=== PATIENT | male | born 1945 | race Caucasian/White ===

== ENCOUNTER → 2018-05-24 11:25 | Outpatient (CLI) | payer MEDICARE, SELFPAY ==
[2018-05-24 12:46] LABS: PSA,Total - Annual Screen 0.57 ng/mL (0.00-4.00)
== END ==
PROVIDERS: Family Provider Family Medicine; PCP Family Medicine; Referring Provider Urology; Visit Provider Urology
DX: Z12.5 Encounter for screening for malignant neoplasm of prostate (principal)
CPT/HCPCS: 36415; 84153; G0103

== ENCOUNTER → 2019-06-06 15:33 | Outpatient (CLI) | payer MEDICARE, SELFPAY ==
[2019-06-06 17:07] LABS: PSA,Total - Annual Screen 0.89 ng/mL (0.00-4.00)
== END ==
PROVIDERS: Family Provider Family Medicine; PCP Family Medicine; Referring Provider Urology; Visit Provider Urology
DX: Z12.5 Encounter for screening for malignant neoplasm of prostate (principal)
CPT/HCPCS: 36415; 84153; G0103

== ENCOUNTER → 2020-06-11 15:17 | Outpatient (CLI) | payer MEDICARE, SELFPAY ==
[2020-06-11 16:28] LABS: PSA,Total- Diagnostic 1.08 ng/mL (0.0-4.0)
== END ==
PROVIDERS: PCP Family Medicine; Visit Provider Urology
DX: N40.1 Benign prostatic hyperplasia with lower urinary tract symptoms (principal)
CPT/HCPCS: 36415; 84153

== ENCOUNTER 2021-10-02 14:22 | Outpatient (CLI) | payer OTHER, MEDICARE, SELFPAY ==
[2021-10-02 16:11] LABS: PSA,Total- Diagnostic 0.99 ng/mL (0.0-4.0)
== END 2021-10-02 23:59 | disposition home or self-care (01) ==
LOC: LAB 14:29
PROVIDERS: PCP Family Medicine; Visit Provider Urology
DX: N40.1 Benign prostatic hyperplasia with lower urinary tract symptoms (principal)
CPT/HCPCS: 36415; 84153

== ENCOUNTER → 2023-05-17 | Outpatient (CLI) | payer OTHER, SELFPAY ==
[2023-05-17 15:02] LABS: PSA,Total - Annual Screen 0.37 ng/mL (0.00-4.00)
== END | disposition home or self-care (01) ==
LOC: LAB 13:51
PROVIDERS: PCP Family Medicine; Referring Provider Urology; Visit Provider Urology
DX: Z12.5 Encounter for screening for malignant neoplasm of prostate (principal)
CPT/HCPCS: 36415; 84153; G0103

== ENCOUNTER → 2023-09-08 | Outpatient (CLI) | payer OTHER, SELFPAY ==
--- NOTE | 2023-09-08 14:47 | ECHOD_ITS ---
Reason For Study: ISCHEMIC HEART DISEASE Procedure This was a 2D Doppler, Color Flow transthoracic echocardiogram. Exam performed in department. Left Ventricle Normal LV size. Left ventricular systolic function is normal. The estimated ejection fraction is 60 %. Stage 1 diastolic dysfunction. No regional wall motion abnormalities noted. Right Ventricle Normal RV size. Normal systolic function. Atria Normal left atrium. Normal right atrium. Mitral Valve Normal mitral valve. Tricuspid Valve Normal tricuspid valve. Mild tricuspid valve insufficiency. Pulmonary artery systolic pressure is 35 mmHg. Aortic Valve Trisinus/trileaflet aortic valve. Pulmonic Valve Normal pulmonic valve. Great Vessels Normal aortic root. The pulmonary artery is normal size. Normal inferior vena cava. Pericardium/Pleural No pericardial effusion. MMode/2D Measurements & Calculations LVIDd: 5.0 cm IVSd: 0.85 cm Ao root diam: 3.6 cm LVIDs: 3.7 cm LVPWd: 0.90 cm RVDd: 3.3 cm FS: 25.7 % LAV(MOD-bp): 57.6 ml LVAd ap4: 30.4 cm2 LVAd ap2: 23.9 cm2 LAV(MOD-bp) Indexed: 28.6 ml/m2 LVLd ap4: 8.0 cm LVLd ap2: 7.9 cm LAV(MOD-sp2): 56.9 ml EDV(MOD-sp4): 95.5 ml EDV(MOD-sp2): 59.7 ml LAV(MOD-sp4): 54.8 ml EDV(sp4-el): 98.2 ml EDV(sp2-el): 61.8 ml LVAs ap4: 18.7 cm2 LVAs ap2: 14.5 cm2 LVLs ap4: 6.7 cm LVLs ap2: 6.5 cm ESV(MOD-sp4): 44.7 ml ESV(MOD-sp2): 28.0 ml ESV(sp4-el): 44.4 ml ESV(sp2-el): 27.6 ml EF(MOD-sp4): 53.2 % EF(MOD-sp2): 53.1 % EF(sp4-el): 54.8 % SV(MOD-sp4): 50.8 ml SV(MOD-sp2): 31.7 ml SV(sp4-el): 53.8 ml LA dimension(2D): 3.5 cm LA A4 area: 18.0 cm2 RA A4 area: 13.0 cm2 TAPSE: 2.4 cm Time Measurements MV dec time: 0.20 sec Doppler Measurements & Calculations MV E max bradly: 66.9 cm/sec Lat Peak E' Bradly: 8.2 cm/sec Med Peak E' Bradly: 5.1 cm/sec MV A max bradly: 86.3 cm/sec E/E' lat: 8.1 E/E' med: 13.1 MV E/A: 0.78 MV V2 max: 88.0 cm/sec MV P1/2t max bradly: 66.3 cm/sec Ao V2 max: 157.2 cm/sec MV max P.1 mmHg MV P1/2t: 66.3 msec Ao max P.9 mmHg MV V2 mean: 56.7 cm/sec MV dec slope: 293.1 cm/sec2 Ao V2 mean: 111.5 cm/sec MV mean P.4 mmHg Ao mean P.7 mmHg MV V2 VTI: 22.3 cm MVA(P1/2t): 3.3 cm2 Ao V2 VTI: 33.1 cm AV (velocity ratio): 0.64 LV V1 max: 101.2 cm/sec PA V2 max: 86.6 cm/sec TR max bradly: 275.4 cm/sec LV V1 max P.1 mmHg PA V2 mean: 57.1 cm/sec TR max P.3 mmHg LV V1 mean P.3 mmHg LV V1 mean: 70.3 cm/sec LV V1 VTI: 21.0 cm ECHO/Echo Complete Interpretation Summary Normal LV size. Left ventricular systolic function is normal. The estimated ejection fraction is 60 %. Stage 1 diastolic dysfunction. Mild tricuspid valve insufficiency. Pulmonary artery systolic pressure is 35 mmHg. Ordering Physician: Misha Benitez Referring Physician: Zahra Adams Performed By: Yu Albarran RDCS, RVT
== END | disposition home or self-care (01) ==
LOC: CVS 14:46
PROVIDERS: PCP Family Medicine; Referring Provider Chiropractor; Visit Provider Chiropractor
DX: I25.9 Chronic ischemic heart disease, unspecified (principal); I07.9 Rheumatic tricuspid valve disease, unspecified
CPT/HCPCS: 93306

== ENCOUNTER → 2024-06-05 | Outpatient (CLI) | payer MEDICARE, SELFPAY ==
[2024-06-05 17:05] LABS: PSA,Total - Annual Screen 0.43 ng/mL (0.00-4.00)
== END | disposition home or self-care (01) ==
LOC: LAB 14:56
PROVIDERS: PCP Family Medicine; Referring Provider Urology; Visit Provider Urology
DX: Z12.5 Encounter for screening for malignant neoplasm of prostate (principal)
CPT/HCPCS: 36415; 84153; G0103

== ENCOUNTER 2025-06-13 11:09 | Observation (INO) | payer MEDICARE, SELFPAY ==
--- NOTE | 2025-06-12 16:53 | PAT.ANESEVAL ---
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 When Was Last Pacemaker Check QUESTION #4 FULL TEXT: You/Your Family Experience fever (hyperthermia) with Anesthesia Last Oral Intake Last Oral intake: Last Oral Intake NPO since Meds taken in AM with sips of water? 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 Female No 06/12/25 13:58 HX of Motion Sickness No 06/12/25 13:58 HX of N/V After Surgery No 06/12/25 13:58 Non-Smoker Yes 06/12/25 13:58 Duration of Surgery greater Yes 06/12/25 13:58 than 60 minutes Number of Risk Factors 2 06/12/25 13:58 PONV Score Moderate Risk 06/12/25 13:58 Height & Weight Height & Weight: Anesthesia: Height & Weight Height 5 ft 7 in 01/15/25 14:43 Respiratory Assessment Respiratory Assessment - territory business manager: Respiratory Tract Infection Hx - territory business manager Hx Respiratory Tract Infection No 06/12/25 13:58 STOP Sleep Apnea STOP Sleep Apnea - territory business manager: STOP Sleep Apnea - territory business manager Hx Hypertension Yes: CONTROLLED WITH MED 06/12/25 13:58 Hx Sleep Apnea Yes 06/12/25 13:58 CPAP Yes: NONCOMPLIANT 06/12/25 13:58 BIPAP No 06/12/25 13:58 Do you snore loudly (louder than talking or can be heard Do you often feel tired/ fatigued/ sleepy during daytime? Has anyone observed you stop breathing during sleep? STOP Results Positive 06/12/25 13:58 QUESTION #5 FULL TEXT : Do you snore loudly (louder than talking or can be heard through closed doors)? 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 confused, unrespo /Reproduction History /Reproductive History - territory business manager: /Reproductive Hx- territory business manager Hx Now No 06/12/25 13:58 Gestational Age (in weeks): EDC: Hx Hx Para Hx Section SAB No 06/12/25 13:58 Active Medications Active Medications: Current Medications Generic Name Dose Route Start Last Admin Trade Name Freq PRN Reason Stop Dose Admin Cefazolin Sodium 2 gm/ Sodium 110 mls @ 200 mls/hr 06/13/25 09:45 Chloride IV 06/13/25 10:17 INTRAOP ONE [facility] Medical History (Updated 06/12/25 @ 14:25 by Lizzette Addison) Wears contact lenses Wears glasses Wears partial dentures Wears dentures Thyroid disease Diabetes Arthritis Prostate disease Anemia High cholesterol Restless legs Back pain Non-smoker CPAP (continuous positive airway pressure) dependence History of pain when walking History of echocardiogram History of stress test Cardiology follow-up encounter Hypertension Home Medications ?Medication ?Instructions ?Recorded ?Last Taken ?Type aspirin 81 mg chewable tablet 81 mg PO DAILY@0800 HEART HEALTH 11/08/15 06/09/25 History cyanocobalamin (vitamin B-12) 500 1,000 mcg PO DAILY@0800 SUPPLEMENT 11/08/15 12/02/15 08:00 History mcg tablet 1000 mcg glipizide 5 mg tablet 5 mg PO BID DIABETES 11/08/15 12/02/15 08:00 History 5 mg tamsulosin 0.4 mg capsule 0.4 mg PO BID PROSTATE 11/08/15 12/02/15 21:00 History 0.8 mg atorvastatin 80 mg tablet 80 mg PO QDAY CHOLESTEROL 01/15/25 Unknown History finasteride 5 mg tablet 5 mg PO BID PROSTATE 01/15/25 Unknown History isosorbide mononitrate 30 mg 30 mg PO QDAY HEART 01/15/25 Unknown History tablet,extended release 24 hr levothyroxine 175 mcg tablet 875 mcg PO MO THYROID 01/15/25 Unknown History lisinopril 5 mg tablet 5 mg PO QDAY BP 01/15/25 Unknown History magnesium oxide 400 mg PO QDAY SUPPLEMENT 01/15/25 Unknown History metformin 500 mg tablet,extended 500 mg PO BID DIABETES 01/15/25 Unknown History release 24 hr metoprolol succinate 100 mg 100 mg PO QHS HEART 01/15/25 Unknown History tablet,extended release 24 hr calcium carbonate 600 mg PO QHS SUPPLEMENT 06/12/25 Unknown History cholecalciferol (vitamin D3) 50 50 mcg PO BID SUPPLEMENT 06/12/25 Unknown History mcg (2,000 unit) capsule (Vitamin D3) Allergy/AdvReac Type Severity Reaction Status Date / Time No Known Allergies Allergy Verified 06/12/25 13:49 Family History (Updated 01/15/25 @ 14:50 by Meagan Krueger) Other Cancer Heart disease Surgical History (Updated 06/12/25 @ 14:16 by Lizzette Addison) History of cardiac catheterization Hx of colonoscopy Hx of lithotripsy History of coronary artery stent placement History of back surgery History of open heart surgery Social History (Updated 01/15/25 @ 14:50 by Meagan Krueger) household members: spouse Smoking Status: Never smoker alcohol intake: never Audit: Pertinent Findings Pertinent Findings EKG Perinent findings: EKG 11/09/2015. Normal sinus rhythm. Left bundle branch block. Echo (EF%) pertinent findings: Echo 09/08/2023. Normal LV size. Left ventricular systolic function is normal. EF 60%. Stage I diastolic dysfunction. Mild tricuspid valve insufficiency. Pulmonary artery systolic pressure is 35 mmHg. Recommendation Anesthesia Recommendation Anesthesia recommendation: OPTIMIZED for anesthesia
[2025-06-13] VITALS (15 sets, daily range): BP systolic 126–160; BP diastolic 64–96; PULSE 79–110; RESP 16–20; TEMP 36.2–36.6; O2SAT 85–99; BMI 30.8
--- OUTSIDE RECORDS SUMMARY | 2025-06-13 07:42 | XMS RPT_ITS | CCD ---
Author Organization [facility] Care Team Providers Care Crnp Name Role Phone Christina Maya Unavailable Unavailable Carbajal, Hamlet G Unavailable Unavailable Carbajal, Hamlet G Unavailable Unavailable Yadira Zaman Unavailable Unavailable Yadira Zaman Unavailable Unavailable Christina Maya Primary Care Provider Unavailable Primary Care Provider UnavailJenni Grace Unavailable Unavailable Christina Maya Unavailable Unavailable Rosa Maria Valdez Unavailable Unavailable Rosa Maria Valdez Unavailable Unavailable Christina Maya MD Primary Care Provider JOSÉ MANUEL NAYLOR Attending Unavail able CHRISTINA MAYA Primary Care Unavailable CARBAJAL, HAMLET G Admitting Unavailable JOSÉ MANUEL NAYLOR Attending Unavail able SOLOMON, HAMLET G Referring Unavailable CHRISTINA MAYA Primary Care Unavailable Christina Maya MD Primary Care Provider Christina Maya Unavailable Unavailable Unavailable ERIC DOMINGUEZ Attending Unava ilable CHRISTINA MAYA Primary Care Unavailable Unavailable Unavailable Christina Maya MD Primary Care Provider Zahra Sanchez MD Primary Care Provider Zahra Sanchez MD Primary Care Provider BRODERICK MORATAYA Attending Unavailable Dr. Rosa Maria Valdez Referring Unavailable CHRISTINA MAYA Primary Care Unavailable Miguelina Palacio LPN Unavailable Unavailable ZARHA SANCHEZ Primary Care SCOTT Lee Attending Unavailable Patricia Garcia MD, Broderick Ruggiero Unavailable Manas WOODSON, [place] B Unavailable Zahra Sanchez MD Unavailable BRODERICK MORATAYA Admitting Unava ilable MOTT JOSEBRODERICK DOZIER Attending Unava ilable DANIEL, ZAHRA A Primary Care Unavailab le MOTT JOSEBRODERICK Referring Unava ilable LONGSDORF, ZAHRA A Primary Care Unavailab le MOTT JOSEBRODERICK Referring Unava ilable CHRISTINA MAYA Primary Care Unavailable LONGSDORF, ZAHRA A Primary Care Unavailab le MOTT JOSEBRODERICK Referring Unava ilable TOMCHRISTINA PALMA Primary Care Unavailable MOTT JOSEBRODERICK Referring Unava ilable LONGSDORF, ZAHRA A Primary Care Unavailab le MOTT JOSEBRODERICK DOZIER Referring Unava ilable LONGSDORF, ZAHRA A Primary Care Unavailab le MOTT JOSEBRODERICK Referring Unava ilable LONGSDORF, ZAHRA A Primary Care Unavailab le MOTT JOSEBRODERICK Referring Unava ilable LONGSDORF, ZAHRA A Primary Care Unavailab le MOTT JOSEBRODERICK Referring Unava ilable LONGSDORF, ZAHRA A Primary Care Unavailab le MOTT JOSEBRODERICK Referring Unava ilable LONGSDORF, ZAHRA A Primary Care Unavailab le MOTT JOSEBRODERICK Referring Unava ilable LONGSDORF, ZAHRA A Primary Care Unavailab le MOTT JOSEBRODERICK Referring Unava ilable LONGSDORF, ZAHRA A Primary Care Unavailab le MOTT JOSEBRODERICK Referring Unava ilable LONGSDORF, ZAHRA A Primary Care Unavailab le MOTT JOSEBRODERICK Referring Unava ilable LONGSDORF, ZAHRA A Primary Care Unavailab le MOTT JOSEBRODERICK DOZIER Referring Unava ilable LONGSDORF, ZAHRA A Primary Care Unavailab le MOTT JOSEBRODERICK Referring Unava ilable LONGSDORF, ZAHRA A Primary Care Unavailab le MOTT JOSE, BRODERICK RUGGIERO Referring Unava ilable LONGSDORF, ZAHRA A Primary Care Unavailab le MOTT JOSE, BRODERICK RUGGIERO Referring Unava ilable LONGSDORF, ZAHRA A Primary Care Unavailab le MOTT JOSE, BRODERICK RUGGIERO Referring Unava ilable LONGSDORF, ZAHRA A Primary Care Unavailab le MOTT JOSE, BRODERICK RUGGIERO Referring Unava ilable LONGSDORF, ZAHRA A Primary Care Unavailab le MOTT JOSE, BRODERICK RUGGIERO Referring Unava ilable LONGSDORF, ZAHRA A Primary Care Unavailab le MOTT JOSE, BRODERICK RUGGIERO Referring Unava ilable LONGSDORF, ZAHRA A Primary Care Unavailab le MOTT JOSE, BRODERICK RUGGIERO Referring Unava ilable LONGSDORF, ZAHRA A Primary Care Unavailab le MOTT JOSE, BRODERICK RUGGIERO Referring Unava ilable LONGSDORF, ZAHRA A Primary Care Unavailab le MOTT JOSE, BRODERICK RUGGIERO Referring Unava ilable LONGSDORF, ZAHRA A Primary Care Unavailab le MOTT JOSE, BRODERICK RUGGIERO Referring Unava ilable LONGSDORF, ZAHRA A Primary Care Unavailab le MOTT JOSE, BRODERICK RUGGIERO Referring Unava ilable LONGSDORF, ZAHRA A Primary Care Unavailab le MOTT JOSE, BRODERICK RUGGIERO Referring Unava ilable LONGSDORF, ZAHRA A Primary Care Unavailab le MOTT JOSE, BRODERICK RUGGIERO Referring Unava ilable LONGSDORF, ZAHRA A Primary Care Unavailab le MOTT JOSE, BRODERICK RUGGIERO Referring Unava ilable LONGSDORF, ZAHRA A Primary Care Unavailab le MOTT JOSE, BRODERICK RUGGIERO Referring Unava ilable LONGSDORF, ZAHRA A Primary Care Unavailab le MOTT JOSE, BRODERICK RUGGIERO Referring Unava ilable LONGSDORF, ZAHRA A Primary Care Unavailab le MOTT JOSE, BRODERICK RUGGIERO Referring Unava ilable LONGSDORF, ZAHRA A Primary Care Unavailab le MOTT JOSE, BRODERICK RUGGIERO Referring Unava ilable LONGSDORF, ZAHRA A Primary Care Unavailab le MOTT JOSE, BRODERICK MONIK Referring Unava ilable LONGSDORF, ZAHRA A Primary Care Unavailab le MOTT JOSE, BRODERICK MONIK Referring Unava ilable LONGSDORF, ZAHRA A Primary Care Unavailab le MOTT JOSE, BRODERICK MONIK Referring Unava ilable LONGSDORF, ZAHRA A Primary Care Unavailab le MOTT JOSE, BRODERICK MOINK Referring Unava ilable LONGSDORF, ZAHRA A Primary Care Unavailab le MOTT JOSE, BRODERICK MONIK Referring Unava ilable LONGSDORF, ZAHRA A Primary Care Unavailab le MOTT JOSE, BRODERICK MONIK Referring Unava ilable LONGSDORF, ZAHRA A Primary Care Unavailab le MOTT JOSE, BRODERICK MONIK Referring Unava ilable LONGSDORF, ZAHRA A Primary Care Unavailab le MOTT JOSE, BRODERICK MONIK Referring Unava ilable LONGSDORF, ZAHRA A Primary Care Unavailab le PATCHEN, MARY Campbell Referring Unavailable LONGSDORF, ZAHRA A Primary Care Unavailab le LONGSDORF, ZAHRA A Primary Care Unavailab RONNIE Reno Admitting Unavailable RONNIE TOLBERT Attending Unavailable LONGSDORF, ZAHRA A Primary Care Unavailab CHRISTINA Simons Primary Care Unavailable LONGSDORF, ZAHRA A Primary Care Unavailab le LONGSDORF, ZAHRA A Primary Care Unavailab le MALAGON, IGO B Attending Unavailable LONGSDORF, ZAHRA A Primary Care Unavailab le LONGSDORF, ZAHRA A Primary Care Unavailab le MALAGON, IGO B Referring Unavailable LONGSDORF, ZAHRA A Primary Care Unavailab le PATCHEN, MARY R Attending Unavailable LONGSDORF, ZAHRA A Primary Care Unavailab le MALAGON, IGO B Admitting Unavailable MALAGON, IGO B Attending Unavailable LONGSDORF, ZAHRA A Primary Care Unavailab le PATCHEN, MARY R Referring Unavailable LONGSDORF, ZAHRA A Primary Care Unavailab le PATCHEN, MARY R Referring Unavailable LONGSDORF, ZAHRA A Primary Care Unavailab le PATCHEN, MARY R Referring Unavailable LONGSDORF, ZAHRA A Primary Care Unavailab le PATCHEN, MARY R Referring Unavailable LONGSDORF, ZAHRA A Primary Care Unavailab le PATCHEN, MARY R Referring Unavailable LONGSDORF, ZAHRA A Primary Care Unavailab le LONGSDORF, ZAHRA A Primary Care Unavailab le ANU, DARIUS A Referring Unavailable LONGSDORF, ZAHRA A Primary Care Unavailab le PATCHEN, MARY R Referring Unavailable LONGSDORF, ZAHRA A Primary Care Unavailab le PATCHEN, MARY R Referring Unavailable LONGSDORF, ZAHRA A Primary Care Unavailab le Daniel WOODSON, Zahra A Unavailable Daniel WOODSON, Zahra Duron Primary Care Provider Patricia Garcia MD, Broderick Ruggiero Unavailable Manas WOODSON, [place] B Unavailable Daniel WOODSON, Zahra A Unavailable Daniel WOODSON, Zahra Duron Primary Care Provider Daniel WOODSON, Dr. Sweeney Primary Care Provide r Dr. Zahra Sanchez MD Referring Provider Dr. Gerson Solomon DO Attending Provider Manas WOODSON, [place] B Unavailable Daniel WOODSON, Zahra A Unavailable Manas WOODSON, [place] B Unavailable Unavailable LONGSDORF, ZAHRA A Attending Unavailab le LONGSDORF, ZAHRA A Referring Unavailab le LONGSDORF, ZAHRA A Primary Care Unavailab le LONGSDORF, ZAHRA A Primary Care Unavailab le BRODERICK MORATAYA Attending Unava ilable LONGSDORF, ZAHRA A Primary Care Unavailab le LONGSDORF, ZAHRA A Attending Unavailab le LONGSDORF, ZAHRA A Primary Care Unavailab le MOTTBRODERICK RAMIREZ Attending Unava ilable LONGSDORF, ZAHRA A Primary Care Unavailab le JorgeHeber Attending Unavailable JorgeHeber hernandez Admitting Unavailable Longsdorf, Zahra Primary Care Unavailable Longsdorf, Zahra Referring Unavailable Gerson Solomon Attending Unavailable Zahra Sanchez Primary Care Unavailable Allergies Allergy Classification Reported Allergen(s) Allergy Type Date of Onset Reaction(s) Facility (16 sources) oxyCODONE; Translations: [OXYCODONE] Drug Allergy [facility] Medications Current Medications Medication Drug Class(es) Dates Sig (Normalized) Sig (Original) acetaminophen 325 mg oral tablet (16 sources) Start: 09-18-2023 take 3 tablets by mouth every six hours acetaminophen (Tylenol) 325 mg tablet Indications: S/P CABG x 4 Take 3 tablets (975 mg) by mouth every 6 hours. 09/18/2023 Active Start: 09-13-2023 Start: 01-31-2018 End: 02-01-2018 take 2 tablets by mouth every four hours as needed 500 ml albumin human, intermediate 50 mg/ml injection (1 source) Human Serum Albumin Start: 09-13-2023 12.5 g, intravenous, at 250 mL/hr, Administer over 60 Minutes, As needed, For hemodynamic instability / hypotension, Starting on Wed09/13/23 at 1225, For 2 doses, Phase II/On Unit Recommended infusion rate 2-4 mL/min. Was crystalloid challenge performed and/or failed? Yes Is albumin required for cardiac surgery? Yes aspirin 81 mg delayed release oral tablet (20 sources) Nonsteroidal Anti-inflammatory Drug Start: 09-13-2023 take 81 mg by mouth once daily 81 mg, oral, Daily, First dose on Wed09/13/23 at 1230, Phase II/On Unit Do not crush, chew, or split. Start: 01-31-2018 End: 02-01-2018 Start: 11-08-2015 take 1 tablet by mouth once da jose alberto Aspirin 81 MG tablet,chewable Active 81 mg PO DAILY@0800 November 08, 2015 12:00am atorvastatin 80 mg oral tablet (20 sources) HMG-CoA Reductase Inhibitor Start: 03-21-2025 take 1 tablet by mouth once daily at bedtime atorvastatin (Lipitor) 80 mg tablet Indications: Hyperlipidemia, unspecified hyperlipidemia type TAKE 1 TABLET BY MOUTH EVERY NIGHT AT BEDTIME 90 tablet 1 03/21/2025 Active Start: 09-04-2024 take 1 tablet by mery once daily Atorvastatin 80 mg tablet Active 80 mg PO daily January 15, 2025 12:00am Start: 03-08-2024 take 1 tablet by mery th once daily at bedtime atorvastatin (Lipitor) 80 mg tablet Indications: Hyperlipidemia, unspecified hyperlipidemia type Take 1 tablet (80 mg) by mouth once daily at bedtime. 90 tablet 1 03/08/2024 Active Start: 02-10-2022 take 1 tablet by mery th once daily at bedtime atorvastatin (Lipitor) 40 mg tablet Take 1 tablet (40 mg) by mouth once daily at bedtime. 02/10/2022 Active Start: 02-26-2020 End: 06-07-2023 take 1 tablet by mouth once daily at bedtime atorvastatin (Lipitor) 80 mg tablet Take 1 tablet (80 mg) by mouth once daily at bedtime. 0 02/26/2020 06/07/2023 Discontinued (Other) Start: 02-26-2020 take 1 tablet by mery th once daily Atorvastatin Calcium 40 MG Oral Tablet TAKE ONE TABLET BY MOUTH DAILY Quantity: 90 Refills: 1 Ordered: 28-Nov-2020 Rosa Maria Valdez MD Start : 26-Feb-2020 Active Start: 11-08-2015 End: 01-15-2025 take 1 tablet by mouth once daily atorvastatin (Lipitor) 20 mg tablet Take 1 tablet (20 mg) by mouth once daily. 0 08/13/2016 06/07/2023 Discontinued (Other) take 1 tablet by mery th once daily Atorvastatin Calcium 40 MG Oral Tablet TAKE 1 TABLET DAILY. Refills: 0 Active benzocaine 15 mg / menthol 3.6 mg oral lozenge (1 source) Standardized Chemical Allergen Start: 09-16-2023 1 lozenge, Mouth/Throat, Every 2 hour PRN, sore throat, Starting on Wed09/16/23 at 0739 benzonatate 100 mg oral capsule (1 source) Non-narcotic Antitussive Start: 09-17-2023 take 100 mg by mouth three times daily as needed for cough 100 mg, oral, 3 times daily PRN, cough, Starting on Wed09/17/23 at 0857 Do not crush or chew. Calcium (7 sources) Phosphate Binder, Calcium take 600 mg by mouth once daily CALCIUM ORAL Take 600 mg by mouth once daily. Active Calcium TABS Sean e 1 tablet twice daily Quantity: 0 Refills: 0 Ordered: 06-May-2023 DO Active Calcium TABS Mckinley ntity: 0 Refills: 0 Ordered: 01-Jul-2020 DO Active calcium carbonate 1250 mg / cholecalciferol 100 unt chewable tablet (1 source) Vitamin D Start: 12-03-2015 Calcium Carbonate-Vitamin D3 1 EACH tablet,chewable Active 1 NMA PO DAILY December 03, 2015 12:00am cholecalciferol 0.025 mg oral tablet (20 sources) Vitamin D Start: 09-13-2023 take 2000 [IU] by mouth twice daily 2,000 Units, oral, 2 times daily, First dose on Wed09/13/23 at 1230, Phase II/On Unit Start: 02-10-2022 take 1 tablet by mery th twice daily cholecalciferol (Vitamin D-3) 50 MCG (2000 UT) tablet Take 1 tablet (50 mcg) by mouth 2 times a day. 02/10/2022 Active Start: 02-10-2022 take 1 tablet by mery th twice daily cholecalciferol (Vitamin D-3) 50 MCG (2000 UT) tablet Take 1 tablet (2,000 Units) by mouth 2 times a day. 02/10/2022 Active Start: 02-10-2022 take 1 tablet by mery th once daily cholecalciferol (Vitamin D-3) 50 MCG (2000 UT) tablet Take 1 tablet (2,000 Units) by mouth once daily. 0 02/10/2022 Active Start: 01-31-2018 End: 02-01-2018 End: 06-07-2023 take 1 capsule by mouth once daily cholecalciferol (Vitamin D-3) 25 MCG (1000 UT) capsule Take 1 capsule (25 mcg) by mouth once daily. 0 06/07/2023 Discontinued (Other) Vitamin D 1000 U NIT TABS TAKE 1 TABLET DAILY. Quantity: 0 Refills: 0 Ordered: 14-Jun-2019 DO Active take 1 capsule by mo uth once daily cholecalciferol, vitamin D3, (VITAMIN D3) 1,000 unit capsule Take 1,000 Units by mouth daily. 0 Active docusate sodium 50 mg / sennosides, intermediate 8.6 mg oral tablet (1 source) Start: 09-13-2023 take 2 tablets by mouth twice daily 2 tablet, oral, 2 times daily, First dose on Wed09/13/23 at 1230, Phase II/On Unit Bowel Regimen - for prevention of constipation Hold for loose stools Drug or medicament (substance) (1 source) Start: 09-13-2023 inhalation, Continuous PRN - O2/gases, other, Starting on Wed09/13/23 at 1715 Device: Nasal Cannula Rate in liters per minute: 3 LPM Keep O2 Sat Above: 92% 0.4 ml enoxaparin sodium 100 mg/ml prefilled syringe (1 source) Low Molecular Weight Heparin Start: 2023 inject 40 mg by subcutaneous injection once daily 40 mg, subcutaneous, Daily, First dose on Wed09/14/23 at 0900, Phase II/On Unit Hold for Plt < 100 or s/sx of bleeding Indications: venous thrombosis [id number] 0.3 ml EPINEPHrine 1 mg/ml auto-injector (5 sources) alpha-Adrenergic Agonist, beta-Adrenergic Agonist, Catecholamine Start: 03-21-2024 EPINEPHrine (Epipen) 0.3 mg/0.3 mL injection syringe Indications: Bee sting allergy Inject 0.3 mL (0.3 mg) into the muscle 1 time if needed for anaphylaxis for up to 1 dose. Call 911 after use. 1 each 1 03/21/2024 Active 1 ml fentaNYL 0.05 mg/ml injection (1 source) Opioid Agonist Start: 09-13-2023 25 mcg, intravenous, Every 1 hour PRN, pain breakthrough, Starting on Wed09/13/23 at 1225, Phase II/On Unit finasteride 5 mg oral tablet (20 sources) 5-alpha Reductase Inhibitor Start: 11-14-2024 take 1 tablet by mouth once daily finasteride (Proscar) 5 mg tablet Indications: Benign prostatic hyperplasia, unspecified whether lower urinary tract symptoms present Take 1 tablet (5 mg) by mouth once daily. 90 tablet 1 11/14/2024 Active Start: 02-10-2022 End: 05-03-2024 take 1 tablet by mouth once daily finasteride (Proscar) 5 mg tablet Indications: Benign prostatic hyperplasia, unspecified whether lower urinary tract symptoms present Take 1 tablet (5 mg) by mouth once daily. 90 tablet 1 05/03/2024 Active gabapentin 100 mg oral capsule (1 source) Anti-epileptic Agent Start: 09-13-2023 take 1 capsule by mouth three times daily 100 mg, oral, 3 times daily, First dose on 09/13/23 at 1500, Phase II/On Unit Capsules may be opened and sprinkled on food (eg, applesauce, orange juice, pudding glipiZIDE 5 mg oral tablet (20 sources) Sulfonylurea Start: 03-21-2025 take 1 tablet by mouth twice daily glipiZIDE (Glucotrol) 5 mg tablet Indications: Type 2 diabetes mellitus with other circulatory complication, without long-term current use of insulin TAKE 1 TABLET BY MOUTH 2 TIMES A DAY 180 tablet 1 03/21/2025 Active Start: 09-04-2024 take 1 tablet by mery th twice daily glipiZIDE (Glucotrol) 5 mg tablet Indications: Type 2 diabetes mellitus with other circulatory complication, without long-term current use of insulin TAKE 1 TABLET BY MOUTH 2 TIMES A DAY 180 tablet 1 09/04/2024 Active Start: 03-08-2024 take 1 tablet by mery th twice daily glipiZIDE (Glucotrol) 5 mg tablet Indications: Type 2 diabetes mellitus with other circulatory complication, without long-term current use of insulin Take 1 tablet (5 mg) by mouth 2 times a day. 180 tablet 1 03/08/2024 Active Start: 08-07-2015 take 1 tablet by mery th once daily Glipizide 5 MG tablet Active 5 mg PO DAILY@0730 November 08, 2015 12:00am Start: 08-07-2015 End: 02-01-2018 take 1 tablet by mouth twice daily glipiZIDE (GLUCOTROL) 5 MG tablet Take 5 mg by mouth 2 (two) times a day . 0 08/07/2015 Active guaiFENesin 20 mg/ml oral solution (1 source) Start: 09-16-2023 take 200 mg by mouth every four hours as needed 200 mg, oral, Every 4 hours PRN, congestion, Starting on Wed09/16/23 at 0740 hydrOXYzine hydrochloride 25 mg oral tablet (7 sources) Antihistamine Start: 11-09-2023 End: 10-17-2024 take 1 tablet by mouth every eight hours hydrOXYzine HCL (Atarax) 25 mg tablet Indications: Primary insomnia Take 1 tablet (25 mg) by mouth every 8 hours if needed for itching for up to 10 days. 30 tablet 11/09/2023 10/17/2024 Discontinued (Med List Cleanup) insulin lispro 100 unt/ml injectable solution (2 sources) Insulin Analog Start: 09-16-2023 0-15 Units, subcutaneous, 4 times daily before meals and nightly, First dose (after last modification) on Zoraida 09/16/23 at 2100, Recovery & On Unit For BG = 0- 70: Notify provider AND initiate hypoglycemia management interventions For BG = 71-140: zero units (at goal) For BG = 141-180: 5 units For BG = 181-220: 10 units For BG = 221-260: 15 units For BG GREATER 260: Notify provider Notify provider IF: TWO CONSECUTIVE draws are GREATER than 200 Start: 09-13-2023 End: 09-16-2023 0-15 Units, subcutaneous, Ev zoe 4 hours, First dose on 09/13/23 at 1300, Recovery & On Unit For BG = 0- 70: Notify provider AND initiate hypoglycemia management interventions For BG = 71-140: zero units (at goal) For BG = 141-180: 5 units For BG = 181-220: 10 units For BG = 221-260: 15 units For BG GREATER 260: Notify provider Notify provider IF: TWO CONSECUTIVE draws are GREATER than 200 24 hr isosorbide mononitrate 30 mg extended release oral tablet (20 sources) Nitrate Vasodilator Start: 01-30-2025 take 1 tablet by mouth once daily isosorbide mononitrate ER (Imdur) 30 mg 24 hr tablet Indications: 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 90 tablet 3 02/01/2024 Active Start: 01-02-2021 isosorbide mon onitrate (IMDUR) 60 MG 24 hr tablet Start: 02-26-2020 End: 06-07-2023 take 1 tablet by mouth once daily isosorbide mononitra te ER (Imdur) 60 mg 24 hr tablet Take 1 tablet (60 mg) by mouth once daily. 0 02/26/2020 06/07/2023 Discontinued (Other) Start: 02-26-2020 take 1 tablet by mery th once daily in the morning Isosorbide Mononitrate ER 30 MG Oral Tablet Extended Release 24 Hour TAKE ONE TABLET BY MOUTH EVERY MORNING Quantity: 90 Refills: 2 Rosa Maria Valdez MD Start : 26-Feb-2020 Active take 1 tablet by mouth once catrachito y Isosorbide Mononitrate ER 30 MG Oral Tablet Extended Release 24 Hour TAKE 1 TABLET DAILY. Refills: 0 Active lisinopril 5 mg oral tablet (20 sources) Angiotensin Converting Enzyme Inhibitor Start: 01-15-2025 take 1 tablet by mouth once daily Lisinopril 5 mg tablet Active 5 mg PO daily January 15, 2025 12:00am Start: 02-10-2022 End: 09-18-2023 Start: 02-01-2018 End: 06-07-2023 take 1 tablet by mouth once daily at lunch lisinopril 20 mg tablet Take 1 tablet (20 mg) by mouth once daily. with lunch. 0 02/01/2018 06/07/2023 Discontinued (Other) Start: 09-26-2015 End: 01-15-2025 take 1 tablet by mouth once daily Lisinopril 10 MG tablet Discontinued 10 mg PO DAILY November 08, 2015 12:00am January 15, 2025 2:46pm magnesium chloride 0.43853 meq/ml / potassium chloride 0.82705 meq/ml / sodium acetate 0.027 meq/ml / sodium chloride 0.0899 meq/ml / sodium gluconate 5.02 mg/ml injectable solution (1 source) Start: 09-13-2023 1,000 mL, intr avenous, As needed, For hemodynamic instability / hypotension, Starting on Wed09/13/23 at 1225, For 2 doses, Phase II/On Unit magnesium oxide 400 mg oral tablet (20 sources) Start: 01-15-2025 take 1 tablet by mouth once daily Magnesium Oxide 400 mg magnesium tablet Active 400 mg PO daily January 15, 2025 12:00am Start: 09-13-2023 take 400 mg by mouth once catrachito y 400 mg, oral, Daily, First dose on Wed09/13/23 at 1230, Phase II/On Unit Start: 05-20-2023 take 1 tablet by mery th three times daily magnesium oxide (Mag-Ox) 420 mg tablet Take 1 tablet (420 mg) by mouth 3 times a day. 05/20/2023 Active take 1 tablet by mery th twice daily magnesium oxide (Mag-Ox) 400 mg tablet Take 1 tablet (400 mg) by mouth 2 times a day. Active 100 ml magnesium sulfate 40 mg/ml injection (2 sources) Start: 09-13-2023 take 2 g intravenous ly every six hours as needed 2 g, intravenous, at 50 mL/hr, Administer over 1 Hours, Every 6 hours PRN, magnesium level 1.7-1.9 mg/dL, Starting on Wed09/13/23 at 1226, Phase II/On Unit Start: 09-13-2023 take 4 g intravenous ly every six hours as needed 4 g, intravenous, at 50 mL/hr, Administer over 2 Hours, Every 6 hours PRN, magnesium level 1.4 - 1.6 mg/dL, Starting on Wed09/13/23 at 1226, Phase II/On Unit melatonin 5 mg oral tablet (1 source) Start: 09-18-2023 take 5 mg by mouth once daily 5 mg, oral, Nightly, First dose on Wed09/18/23 at 0145 24 hr metFORMIN hydrochloride 500 mg extended release oral tablet (20 sources) Biguanide Start: 02-23-2025 take 1 tablet by mouth twice daily metFORMIN XR 500 mg 24 hr tablet Indications: Type 2 diabetes mellitus with other circulatory complication, unspecified whether fdc insulin use TAKE 1 TABLET BY MOUTH 2 TIMES A DAY 180 tablet 02/23/2025 Active Start: 11-24-2024 take 1 tablet by mery th twice daily Metformin 500 mg tablet extended release 24 hr Active 500 mg PO TWICE A DAY January 15, 2025 12:00am Start: 08-28-2024 take 1 tablet by mery th twice daily metFORMIN XR 500 mg 24 hr tablet Indications: Type 2 diabetes mellitus with other circulatory complication, unspecified whether superintendent terminal insulin use TAKE 1 TABLET BY MOUTH 2 TIMES A DAY 180 tablet 08/28/2024 Active Start: 05-22-2024 take 1 tablet by mery th twice daily metFORMIN XR 500 mg 24 hr tablet Indications: Type 2 diabetes mellitus with other circulatory complication, unspecified whether fdc insulin use TAKE 1 TABLET BY MOUTH 2 TIMES A DAY 180 tablet 05/22/2024 Active Start: 02-21-2024 take 1 tablet by mery th twice daily metFORMIN XR 500 mg 24 hr tablet Indications: Type 2 diabetes mellitus with other circulatory complication, without long-term current use of insulin (Multi) TAKE 1 TABLET BY MOUTH 2 TIMES A DAY 180 tablet 02/21/2024 Active Start: 11-23-2023 metFORMIN XR 5 00 mg 24 hr tablet Indications: Type 2 diabetes mellitus with other circulatory complication, without long-term current use of insulin (Multi) 1 tablet (500 mg) 2 times a day. 180 tablet 11/23/2023 Active Start: 04-23-2023 metFORMIN XR 5 00 mg 24 hr tablet 1 tablet (500 mg) 2 times a day. 0 04/23/2023 Active Start: 04-23-2023 metFORMIN XR 5 00 mg 24 hr tablet Start: 11-08-2015 End: 01-15-2025 take 1 tablet by mouth twice daily at mealtime Metformin 1,000 MG tablet Discontinued 1000 mg PO TWICE DAILY WITH MEALS November 08, 2015 12:00am January 15, 2025 2:48pm Start: 08-23-2015 End: 01-27-2018 take 1 tablet by mouth four times daily metFORMIN (GLUCOPHAGE-XR) 500 MG 24 hr tablet Take 500 mg by mouth 4 (four) times a day. 08/23/2015 01/27/2018 Discontinued 24 hr metoprolol succinate 100 mg extended release oral tablet (20 sources) beta-Adrenergic Mila Start: 10-30-2024 take 1 tablet by mouth once daily at bedtime metoprolol succinate XL (Toprol-XL) 100 mg 24 hr tablet Indications: S/P CABG x 4 , HTN (hypertension), benign Take 1 tablet (100 mg) by mouth once daily at bedtime. 90 tablet 1 10/30/2024 Active Start: 09-16-2023 take 50 mg by mouth twice catrachito y 50 mg, oral, 2 times daily, First dose (after last modification) on Zoraida 09/16/23 at 1215 Start: 09-15-2023 End: 09-16-2023 take 25 mg by mouth twice daily 25 mg, oral, 2 times d aily, First dose on Wed09/15/23 at 1015 Start: 11-08-2015 End: 01-15-2025 take 2 tablets by mouth every twenty-four hours at bedtime Metoprolol Succinate 200 MG tablet extended release 24 hr Discontinued 100 mg PO AT BEDTIME November 08, 2015 12:00am January 15, 2025 2:48pm Start: 10-21-2015 End: 05-03-2024 take 1 tablet by mouth once daily at bedtime metoprolol succinate XL (Toprol-XL) 100 mg 24 hr tablet Indications: S/P CABG x 4 , HTN (hypertension), benign Take 1 tablet (100 mg) by mouth once daily at bedtime. 90 tablet 1 05/03/2024 Active take 1 tablet by mery every twenty-four hours Metoprolol Succinate ER 100 MG Oral Tablet Extended Release 24 Hour Quantity: 0 Refills: 0 Ordered: 01-Jul-2020 DO Active take 1 tablet by mery once daily Metoprolol Succinate ER 50 MG Oral Tablet Extended Release 24 Hour Take 1 tablet daily Refills: 0 DO Active Febqfqwd-Vca-Mrna Fum-Folic Ac 1 EACH tablet (1 source) Start: 12-03-2015 take 1 tablet by mouth once daily before mealtime Njsywdvb-Cel-Ejos Fum-Folic Ac 1 EACH tablet Active 1 NMA PO DAILY December 03, 2015 12:00am 2 ml naloxone hydrochloride 1 mg/ml prefilled syringe (3 sources) Opioid Antagonist Start: 09-13-2023 0.2 mg, intravenous, Every 5 min PRN, respiratory depression, Starting on Wed09/13/23 at 1246, Recovery & On Unit If respiratory rate is less than 8 breaths/minute or patient is difficult to arouse stop any narcotics and contact physician. Administer slow IV push. Repeat as ordered until patient's respiratory rate is greater than 12 breaths/minute. Start: 01-31-2018 End: 02-01-2018 pantoprazole 40 mg delayed release oral tablet (1 source) Proton Pump Inhibitor Start: 2023 take 40 mg by mouth once daily before breakfast 40 mg, oral, Daily before breakfast, First dose on Wed09/14/23 at 0700, Recovery & On Unit Do not crush, chew, or split. polyethylene glycol 3350 255644 mg / potassium chloride 2970 mg / sodium bicarbonate 6740 mg / sodium chloride 5860 mg / sodium sulfate 14138 mg powder for oral solution (1 source) Osmotic Laxative Start: 03-11-2021 End: 03-11-2021 polyethylene glycol (GoLYTELY) 236-22.74-6.74 -5.86 gram solution Take 4,000 mL by mouth once for 1 dose . 4000 mL 0 03/11/2021 03/11/2021 Active 100 ml potassium chloride 0.4 meq/ml injection (2 sources) Start: 09-13-2023 40 mEq, intravenous, at 50 mL/hr, Administer over 2 Hours, Every 2 hour PRN, Potassium level 3.6 - 3.7 mmol/L and unable to take oral medications, Starting on Wed09/13/23 at 1226, Phase II/On Unit For central line administration only. Start: 09-13-2023 20 mEq, intrav enous, at 100 mL/hr, Administer over 1 Hours, Every 1 hour PRN, Potassium level 3.8 - 3.9 mmol/L and unable to take oral medications, Starting on Wed09/13/23 at 1225, Phase II/On Unit psyllium 3400 mg powder for oral suspension (1 source) Start: 09-13-2023 1 packet, oral , Daily, First dose on Wed09/13/23 at 1230, Phase II/On Unit Bowel Regimen - for prevention of constipation. tamsulosin hydrochloride 0.4 mg oral capsule (20 sources) alpha-Adrenerg ic Mila Start: 09-04-2024 take 1 capsule by mouth once daily tamsulosin (Flomax) 0.4 mg 24 hr capsule Indications: Benign prostatic hyperplasia, unspecified whether lower urinary tract symptoms present TAKE 1 CAPSULE BY MOUTH DAILY 90 capsule 1 09/04/2024 Active Start: 03-08-2024 take 1 capsule by mo uth once daily tamsulosin (Flomax) 0.4 mg 24 hr capsule Indications: Benign prostatic hyperplasia, unspecified whether lower urinary tract symptoms present Take 1 capsule (0.4 mg) by mouth once daily. 90 capsule 1 03/08/2024 Active Start: 09-13-2023 0.4 mg, oral, Daily, First dose on Wed09/13/23 at 1230, Phase II/On Unit Give 30 minutes after the same mealtime each day. Capsules should be swallowed whole; do not crush, chew, or open. Start: 11-22-2017 End: 02-01-2018 take 1 capsule by mouth once daily tamsulosin (FLOMAX) 0.4 mg capsule Take 0.4 mg by mouth daily. 0 11/22/2017 Active Start: 11-08-2015 take 2 capsules by m outh at bedtime Tamsulosin 0.4 MG capsule Active 0.8 mg PO AT BEDTIME November 08, 2015 12:00am levothyroxine sodium 0.175 mg oral tablet (20 sources) l-Thyroxine Start: 03-21-2025 take 1 tablet by mouth in the morning levothyroxine (Synthroid, Levoxyl) 175 mcg tablet Indications: Hypothyroidism, unspecified type TAKE 1 TABLET BY MOUTH EARLY IN THE MORNING 90 tablet 1 03/21/2025 Active Start: 03-08-2024 take 1 tablet by mery th once daily Levothyroxine 175 mcg tablet Active 175 ug PO daily January 15, 2025 12:00am Start: 02-01-2024 take 1 tablet by mery th every week levothyroxine (Synthroid) 175 mcg tablet Indications: Hypothyroidism, unspecified type Take 1 tablet (175 mcg) by mouth 1 (one) time per week. 90 tablet 3 02/01/2024 Active Start: 09-20-2023 take 175 ug by mouth every week 175 mcg, oral, Weekly, First dose on Wed09/20/23 at 0600, Phase II/On Unit Start: 09-04-2022 End: 02-01-2024 take 1 tablet by mouth every week Synthroid 175 mcg tablet Take 1 tablet (175 mcg) by mouth 1 (one) time per week. 09/04/2022 02/01/2024 Discontinued (Reorder) Start: 02-01-2018 End: 02-01-2018 Start: 11-08-2015 End: 01-15-2025 take 1 tablet by mouth once daily Levothyroxine (Levoxyl) 200 MCG tablet Discontinued 200 ug PO DAILY November 08, 2015 12:00am January 15, 2025 2:48pm Start: 09-06-2015 End: 01-27-2018 take 1 tablet by mouth once daily levothyroxine (SYNTHROID, LEVOTHROID) 175 MCG tablet Take 175 mcg by mouth daily. 09/06/2015 01/27/2018 Discontinued vitamin b12 1 mg oral tablet (20 sources) Vitamin B12 Start: 09-13-2023 take 1000 ug by mouth once daily 1,000 mcg, oral, Daily, First dose on Wed09/13/23 at 1230, Phase II/On Unit Start: 01-31-2018 End: 06-07-2023 Start: 11-08-2015 take 2 tablets by mo [facility] once daily Cyanocobalamin (Vitamin B-12) 500 MCG tablet Active 1000 ug PO DAILY@0800 November 08, 2015 12:00am take 1 tablet by [facility] twice daily Vitamin B-12 1000 MCG Oral Tablet Take 1 tablet twice daily Quantity: 0 Refills: 0 Ordered: 06-May-2023 DO Active (3 sources) Start: 09-13-2023 [Order 1 Start ] Name: dextrose 50 % injection 25 g Signed Summary: 25 g, intravenous, Every 15 min PRN, low blood sugar - see comments, For BG 70 mg/dL or LESS & HAS IV access, Starting on Wed09/13/23 at 1246, Recovery & On Unit IF patient HAS a secure IV access & is Unconscious, Conscious, NPO or Unable to Eat or Drink. Give IV Push at 2-3 mL/minute. Repeat every 15 minutes until BG reaches 100 mg/dL or greater, then DISCONTINUE. [Order 1 End] [Order 2 Start] Name: glucagon (Glucagen) injection 1 mg Signed Summary: 1 mg, intramuscular, Every 15 min PRN, low blood sugar - see comments, For BG 70 mg/dL or LESS & NO IV access, Starting on Wed09/13/23 at 1246, Recovery & On Unit IF patient DOES NOT have secure IV access & is Unconscious, Conscious, NPO or Unable to Eat or Drink. Repeat every 15 minutes until BG reaches 100 mg/dL or greater, then DISCONTINUE. [Order 2 End] Start: 09-13-2023 take 10 mg by mouth every six hours as needed [Order 1 Start] Name: metoclopramide (Reglan) tablet 10 mg Signed Summary: 10 mg, oral, Every 6 hours PRN, nausea/vomiting, 2nd line, Starting on Wed09/13/23 at 1226, Phase II/On Unit 2nd Line. If inadequate response within 60 minutes, proceed to next-line agent or contact provider if no further options ordered. [Order 1 End] [Order 2 Start] Name: metoclopramide (Reglan) injection 10 mg Signed Summary: 10 mg, intravenous, Every 6 hours PRN, nausea/vomiting, second line, Starting on Wed09/13/23 at 1226, Phase II/On Unit Give IV if patient is unable to take orally. [Order 2 End] Start: 09-13-2023 take 4 mg by mouth e very eight hours as needed [Order 1 Start] Name: ondansetron (Zofran) tablet 4 mg Signed Summary: 4 mg, oral, Every 8 hours PRN, nausea/vomiting, first line, Starting on Wed09/13/23 at 1226, Phase II/On Unit 1st Line. Use oral route first, if possible. If inadequate response within 60 minutes, proceed to next-line agent for same PRN reason or contact provider if no further options ordered. [Order 1 End] [Order 2 Start] Name: ondansetron (Zofran) injection 4 mg Signed Summary: 4 mg, intravenous, Every 8 hours PRN, nausea/vomiting, first line, Starting on Wed09/13/23 at 1226, Phase II/On Unit 1st Line. Give IV if patient is unable to take orally. If inadequate response within 60 minutes, proceed to next-line agent for same PRN reason or contact provider if no further options ordered. When administering via IV Push, administer over 3-5 minutes. [Order 2 End] Completed/Discontinued Medications Medication Drug Class(es) Dates Sig (Normalized) Sig (Original) acetaminophen 325 mg / HYDROcodone bitartrate 5 mg oral tablet (1 source) Opioid Agonist Start: 01-31-2018 End: 02-01-2018 take 1 tablet by mouth every four hours as needed acetaminophen 325 mg / oxyCODONE hydrochloride 5 mg oral tablet (2 sources) Opioid Agonist Start: 12-04-2015 End: 01-15-2025 Oxycodone-Acetamin ophen 1 TABLET tablet Discontinued 1 {tbl} PO EVERY 4 HOURS NEEDED as needed for Pain December 13, 2015 12:00am January 15, 2025 2:48pm albuterol 0.833 mg/ml / ipratropium bromide 0.167 mg/ml inhalation solution (5 sources) Anticholinergic, beta2-Adrenergic Agonist Start: 09-16-2023 End: 09-16-2023 3 mL, nebulization, Every 4 hours RT, First dose (after last modification) on Wed09/16/23 at 1100 When awake Start: 09-15-2023 End: 09-17-2023 3 mL, nebulization, 3 times daily RT, First dose (after last modification) on Wed09/17/23 at 0700 When awake Start: 2023 End: 2023 3 mL, nebulization, Every 6 hours RT, First dose on Wed09/14/23 at 1900 Start: 2023 3 mL, nebuliza tion, Every 2 hour PRN, shortness of breath, wheezing, Starting on Wed09/14/23 at 1859 aluminum hydroxide 40 mg/ml / magnesium hydroxide 40 mg/ml / simethicone 4 mg/ml oral suspension (1 source) Start: 01-31-2018 End: 02-01-2018 take 30 mL by mouth every four hours as needed Atropine 0.1 Mg/Ml Injection Syringe (1 source) Anticholinergic, Cholinergic Muscarinic Antagonist Start: 01-31-2018 End: 02-01-2018 bisacodyl 5 mg delayed release oral tablet (3 sources) Stimulant Laxative Start: 03-11-2021 End: 06-07-2023 bisacodyl (Dulcolax) 5 mg EC tablet As instructed . 0 03/11/2021 06/07/2023 Discontinued (Other) Start: 03-11-2021 bisacodyL (DUL COLAX) 5 mg EC tablet As instructed . 4 tablet 0 03/11/2021 Active Start: 01-31-2018 End: 02-01-2018 ceFAZolin 2000 mg injection (1 source) Cephalosporin Antibacterial Start: 09-13-2023 End: 2023 take 2 g intravenously every eight hours 2 g, intravenous, Administer over 30 Minutes, Every 8 hours, First dose on Wed09/13/23 at 1300, For 5 doses, Recovery & On Unit premix bag Dosing of this medication varies based on severity of illness. Does this patient have sepsis or concern for sepsis (probable or documented infection plus systemic manifestations of infection)? No Suspected Indication (Select all that apply): Surgical Prophylaxis ciprofloxacin 500 mg oral tablet (14 sources) Quinolone Antimicrobial Start: 09-10-2023 End: 09-18-2023 Start: 11-08-2015 End: 11-09-2015 take 1 tablet by mouth twice daily Ciprofloxacin Hcl 500 MG tablet Discontinued 500 mg PO TWICE A DAY November 08, 2015 12:00am November 09, 2015 8:17am clopidogrel 75 mg oral tablet (20 sources) [id number] Platelet Inhibitor Start: 01-15-2025 End: 01-15-2025 take 1 tablet by mouth once daily Clopidogrel 75 mg tablet Discontinued 75 mg PO daily January 15, 2025 12:00am January 15, 2025 3:07pm Start: 01-31-2018 End: 02-01-2024 take 1 tablet by mouth once daily clopidogrel (Plavix) 75 mg tablet Take 1 tablet (75 mg) by mouth once daily. 01/31/2018 02/01/2024 Discontinued (Non-compliance) 100 ml dexmedetomidine 0.004 mg/ml injection (1 source) Central alpha-2 Adrenergic Agonist Start: 09-13-2023 End: 2023 0-1.5 mcg/kg/hr 91.4 kg (0-34.275 mL/hr, rounded to 0-34.28 mL/hr), intravenous, Continuous, Starting on Wed09/13/23 at 1300, Recovery & On Unit Titration Goal: Use Adult Parameters Target Parameter: RASS 0 to -2 Initial dose: 0.2 mcg/kg/hr Bidirectional Titration Dose: 25 % Titration Frequency: Every 30 minutes docusate sodium 100 mg oral capsule (1 source) Start: 12-04-2015 End: 01-15-2025 take 1 capsule by mouth twice daily Docusate Sodium (Dok) 100 MG capsule Discontinued 100 mg PO TWICE A DAY December 04, 2015 12:00am January 15, 2025 2:48pm empagliflozin 25 mg oral tablet (1 source) Sodium-Glucose Cotransporter 2 Inhibitor Start: 05-20-2023 End: 06-07-2023 take 0.5 tablet by mouth once daily for diabetes mellitus empagliflozin (Jardiance) 25 mg TAKE ONE-HALF TABLET BY MOUTH EVERY DAY FOR DIABETES. REPLACEMENT FOR GLIPIZIDE 0 05/20/2023 06/07/2023 Discontinued (Other) furosemide 20 mg oral tablet (7 sources) Loop Diuretic Start: 09-18-2023 End: 11-09-2023 take 1 tablet by mouth twice daily furosemide (Lasix) 20 mg tablet Indications: S/P CABG x 4 Take 1 tablet (20 mg) by mouth 2 times a day. 60 tablet 0 09/18/2023 11/09/2023 Discontinued (Med List Cleanup) Start: 2023 take 20 mg intraveno usly every twelve hours 20 mg, intravenous, Every 12 hours, First dose on Wed09/14/23 at 1900 lidocaine 0.04 mg/mg medicated patch (1 source) Antiarrhythmic, Amide Local Anesthetic Start: 09-13-2023 End: 09-18-2023 apply 1 dose transdermal route every twenty-four hours 1 patch, transdermal, Administer over 24 Hours, Every 24 hours, First dose on Wed09/13/23 at 1300, For 5 doses, Recovery & On Unit Apply to chest next to incision. lovastatin (2 sources) HMG-CoA Reductase Inhibitor End: 01-27-2018 LOVASTATIN ORAL Take by mouth. 01/27/2018 Discontinued LOVASTATIN ORAL Take by mouth. Active Mag-Ox 400 TABS (5 sources) Mag-Ox 400 TABS TAKE 1 TABLET TWICE DAILY. Quantity: 0 Refills: 0 Ordered: 06-May-2023 DO Active Mag-Ox 400 TABS TAKE 1 TABLET DAILY. Quantity: 0 Refills: 0 Ordered: 01-Jul-2020 DO Active metOLazone 2.5 mg oral tablet (1 source) Thiazide-like Diuretic Start: 09-17-2023 End: 09-17-2023 take 2.5 mg by mouth once 2.5 mg, oral, Once, On Wed09/17/23 at 1030, For 1 dose nitroglycerin 0.4 mg sublingual tablet (20 sources) Nitrate Vasodilator Start: 06-07-2023 End: 09-18-2023 Start: 01-27-2018 nitroglycerin (Nitrostat) 0.4 mg SL tablet TAKE DIRECTED. 0 01/27/2018 Active Start: 01-27-2018 End: 01-27-2019 nitroGLYCERIN (NITROSTAT) 0. [address] 1 (one) tablet (0.4 mg total) under the tongue every 5 (five) minutes as needed for chest pain , if no relief after 3rd dose call 911. 100 tablet 3 01/27/2018 Active Nitroglycerin 0. 4 MG Sublingual Tablet Sublingual TAKE DIRECTED. Quantity: 25 Refills: 0 Ordered: 08-May-2020 Rosa Maria Valdez MD Active ondansetron (ZOFRAN-ODT) disintegrating tablet 4 mg (1 source) Start: 01-31-2018 End: 02-01-2018 take 1 tablet by mouth every six hours as needed ondansetron (ZOFRAN-ODT) disintegrating tablet 4 mg oxyCODONE hydrochloride 5 mg oral tablet (6 sources) Opioid Agonist Start: 09-13-2023 End: 09-23-2023 take 1 tablet by mouth every six hours for pain oxyCODONE (Roxicodone) 5 mg immediate release tablet Indications: S/P CABG x 4 Take 1 tablet (5 mg) by mouth every 6 hours if needed for severe pain (7 - 10). 15 tablet 0 09/18/2023 09/23/2023 Discontinued (Therapy completed) Start: 09-13-2023 perflutren lipid microspheres (Definity) injection 2 mL of dilution (2 sources) Start: 06-21-2023 End: 06-21-2023 perflutren lipid microspheres (Definity) injection 2 mL of dilution regadenoson (Lexiscan) injection 0.4 mg (1 source) Start: 05-31-2023 End: 05-31-2023 regadenoson (Lexiscan) injection 0.4 mg 1000 ml sodium chloride 9 mg/ml injection (3 sources) Start: 01-31-2018 End: 02-01-2018 5 ml sugammadex 100 mg/ml injection (1 source) Start: 09-13-2023 End: 09-13-2023 185 mg (rounded from 182.8 mg = 2 mg/kg 91.4 kg), intravenous, Once, On Wed09/13/23 at 1300, For 1 dose Administer as rapid IV push over 10 seconds Tc-99m tetrofosmin (Myoview) injection 10.28 millicurie (1 source) Start: 05-31-2023 End: 05-31-2023 Tc-99m tetrofosmin (Myoview) injection 10.28 millicurie Tc-99m tetrofosmin (Myoview) injection 33 millicurie (1 source) Start: 05-31-2023 End: 05-31-2023 Tc-99m tetrofosmin (Myoview) injection 33 millicurie traZODone hydrochloride 50 mg oral tablet (1 source) Serotonin Reuptake Inhibitor Start: 01-31-2018 End: 02-01-2018 Unspecified Medication (2 sources) Start: 05-06-2023 take 1 tablet by mouth once daily Unspecified Medication Finasteride 1 tabs po daily Quantity: 0 Refills: 0 Ordered: 06-May-2023 DO Start : 06-May-2023 Active Start: 05-06-2023 Unspecified Me dication metformin 1 po bid Quantity: 0 Refills: 0 Ordered: 06-May-2023 DO Start : 06-May-2023 Active (1 source) Start: 09-13-2023 End: 2023 0-3.3 mcg/kg/min 91.4 kg (0- 565.5375 mL/hr, rounded to 0-565.54 mL/hr), intravenous, Continuous, Starting on Wed09/13/23 at 0630 Titration Goal: Use Adult Parameters Target Parameter: MAP 60 to 70 Initial dose: 0.01 mcg/kg/min Bidirectional Titration Dose: 0.01 mcg/kg/min Titration Frequency: Every 1 minute Problems Active Problems Problem Classification Problem Date Documented Date Episodic/Chronic Acute and unspecified renal failure (2 sources) Acute kidney failure, unspecified; Translations: [Acute kidney failure, unspecified] Onset: 09-20-2023 Episodic Acute myocardial infarction (2 sources) Other myocardial infarction type; Translations: [Other myocardial infarction type (CMS/HCC)] Onset: 09-10-2023 Chronic Cardiac dysrhythmias (20 sources) Cardiac arrhythmia; Translations: [Cardiac arrhythmia, unspecified] Onset: 06-04-2023 06-04-2023 Chronic Chronic kidney disease (20 sources) Chronic kidney disease stage 3; Translations: [Stage 3 chronic kidney disease] Onset: 06-04-2023 06-04-2023 Chronic Chronic kidney disease (4 sources) Chronic kidney disease; Translations: [Chronic kidney disease, stage 3 unspecified (Multi)] Onset: 06-04-2023 Complication of device; implant or graft (19 sources) 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; Translations: [Atherosclerosis of autologous artery coronary artery bypass graft(s) with angina pectoris with documented spasm] Onset: 06-04-2023 09-23-2023 Chronic Coronary atherosclerosis and other heart disease (20 sources) Angina pectoris; Translations: [Coronary arteriosclerosis] Onset: 02-01-2018 02-01-2018 Chronic Diabetes mellitus with complications (10 sources) Type 2 diabetes mellitus; Translations: [Type 2 diabetes mellitus with other circulatory complications] Onset: 06-04-2023 08-04-2023 Chronic Diabetes mellitus without complication (20 sources) Diabetes mellitus; Translations: [Diabetes mellitus without mention of complication, type II or unspecified type, not stated as uncontrolled] Onset: 06-04-2023 06-04-2023 Chronic Disorders of lipid metabolism (20 sources) Hyperlipidemia; Translations: [Other and unspecified hyperlipidemia] Onset: 06-04-2023 06-04-2023 Chronic Esophageal disorders (20 sources) Gastroesophageal reflux disease; Translations: [Gastro-esophageal reflux disease without esophagitis] Onset: 03-11-2021 Chronic Essential hypertension (20 sources) Hypertensive disorder; Translations: [Essential hypertension] Onset: 01-27-2018 01-27-2018 Chronic Fluid and electrolyte disorders (2 sources) Hypokalemia; Translations: [Hypokalemia] Onset: 09-20-2023 Episodic Heart valve disorders (20 sources) Irregular heart beat; Translations: [Cardiac dysrhythmia, unspecified] Onset: 06-04-2023 06-04-2023 Chronic Heart valve disorders (1 source) Irregular heart beat 01-30-2025 Episodic Hyperplasia of prostate (1 source) Benign prostatic hyperplasia; Translations: [Benign prostatic hyperplasia without lower urinary tract symptoms] 05-03-2024 Chronic Immunizations and screening for infectious disease (2 sources) Encounter for immunization; Translations: [Encounter for immunization] Onset: 05-17-2025 Episodic Miscellaneous mental health disorders (3 sources) Primary insomnia; Translations: [Primary insomnia] Onset: 11-09-2023 11-09-2023 Chronic Osteoarthritis (20 sources) Unilateral primary osteoarthritis, right hip; Translations: [Osteoarthritis of right hip joint] Onset: 07-17-2016 07-17-2016 Chronic Other and ill-defined heart disease (1 source) Heart disease; Translations: [Heart disease, unspecified] 01-15-2025 Chronic Other hereditary and degenerative nervous system conditions (2 sources) Restless legs syndrome; Translations: [Restless legs syndrome] Onset: 09-20-2023 Chronic Other lower respiratory disease (1 source) Solitary pulmonary nodule; Translations: [[place] lesion] Episodic Other nervous system disorders (6 sources) Neurogenic claudication; Translations: [Neurogenic claudication due to lumbar spinal stenosis] Chronic Peripheral and visceral atherosclerosis (5 sources) Arteriosclerotic vascular disease; Translations: [Unspecified atherosclerosis] Onset: 08-01-2024 08-03-2023 Chronic Residual codes; unclassified (20 sources) Obstructive sleep apnea syndrome; Translations: [Obstructive sleep apnea (adult)(pediatric)] Onset: 06-04-2023 06-04-2023 Chronic Residual codes; unclassified (2 sources) Obstructive sleep apnea (adult) (pediatric); Translations: [Obstructive sleep apnea (adult) (pediatric)] Onset: 09-13-2023 Chronic Residual codes; unclassified (2 sources) Pain; Translations: [Pain] Episodic Residual codes; unclassified (2 sources) Hallucinations, unspecified; Translations: [Hallucinations, unspecified] Onset: 09-20-2023 Episodic Spondylosis; intervertebral disc disorders; other back problems (20 sources) Degeneration of lumbar intervertebral disc; Translations: [Degeneration of lumbosacral intervertebral disc] Onset: 07-17-2016 07-17-2016 Chronic Thyroid disorders (20 sources) Hypothyroidism; Translations: [Unspecified acquired hypothyroidism] Onset: 06-04-2023 06-04-2023 Chronic Past or Other Problems Problem Classification Problem Date Documented Date Episodic/Chronic Allergic reactions (20 sources) Skin changes due to chronic exposure to non-ionizing radiation; Translations: [Other skin changes due to chronic exposure to nonionizing radiation] Onset: 06-04-2023 06-04-2023 Episodic Calculus of urinary tract (20 sources) Kidney stone; Translations: [Calculus of kidney] Onset: 06-04-2023 06-04-2023 Episodic Coronary atherosclerosis and other heart disease (20 sources) Recurrent coronary arteriosclerosis after percutaneous transluminal coronary angioplasty; Translations: [Past history of procedure] Onset: 05-31-2023 05-31-2023 Episodic Deficiency and other anemia (20 sources) Anemia; Translations: [Anemia, unspecified] Onset: 03-11-2021 Episodic Mood disorders (6 sources) Mood disorders Onset: 11-29-2023 Resolved: 02-28-2024 11-29-2023 Neoplasms of unspecified nature or uncertain behavior (20 sources) Neoplasm of uncertain behavior of skin; Translations: [Neoplasm of uncertain behavior of skin] Onset: 06-04-2023 06-04-2023 Episodic Nonspecific chest pain (13 sources) Tight chest; Translations: [Chest discomfort] Onset: 01-27-2018 01-27-2018 Episodic Other aftercare (2 sources) Patient encounter status; Translations: [Encounter for follow-up examination after completed treatment for conditions other than malignant neoplasm] Onset: 09-10-2023 09-10-2023 Episodic Other aftercare (1 source) Encounter for follow-up examination after completed treatment for conditions other than malignant neoplasm; Translations: [Encounter for follow-up examination after completed treatment for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 on above: Result Comment: For adults, a slight decrease in the calculated MCHC value (in the range of 30 to 32 g/dL) is most likely not clinically significant; however, it should be interpreted with caution in correlation with other red cell parameters and the patient's clinical condition. Performed By: #### 6 517, 7600, 6399, 38297, 43240, 70826, 866 #### [facility] [place] [address] Revenue Director: Anthony Tidwell MD MCV (RBC) [Entitic vol] 98.5 fL Normal 80.0-100.0 [facility] Comment on above: Performed By: #### 6 517, 7600, 6399, 81215, 23054, 78280, 866 #### [facility] [place] [address] Revenue Director: Anthony Tidwell MD Monocytes (Bld) [#/Vol] 0.515 10*3/uL Normal 200-950 [facility] Comment on above: Performed By: #### 6 517, 7600, 6399, 02784, 59436, 55931, 866 #### [facility] of [address], [address] [place] [address] Revenue Director: Anthony Tidwell MD Monocytes/100 WBC (Bld) 9.2 % Normal [facility] Comment on above: Performed By: #### 6 517, 7600, 6399, 53915, 52453, 36001, 866 #### [facility] of [address], [address] [place] [address] Revenue Director: Anthony Tidwell MD Neutrophils (Bld) [#/Vol] 3.494 10*3/uL Normal 2105-7539 [facility] Comment on above: Performed By: #### 6 517, 7600, 6399, 57847, 35536, 31216, 866 #### [facility] of [address], [address] [place] [address] Revenue Director: Anthony Tidwell MD Neutrophils/100 WBC (Bld) 62.4 % Normal [facility] Comment on above: Performed By: #### 6 517, 7600, 6399, 28543, 20907, 20073, 866 #### [facility] of [place] [address] Revenue Director: Anthony Tidwell MD Platelet mean volume (Bld) [Entitic vol] 10.6 fL Normal 7.5-12.5 [facility] Comment on above: Performed By: #### 6 517, 7600, 6399, 68247, 48729, 59452, 866 #### [facility] of [address], [address] [place] [address] Revenue Director: Anthony Tidwell MD Platelets (Bld) [#/Vol] 233 10*3/uL Normal 140-400 [facility] Comment on above: Performed By: #### 6 517, 7600, 6399, 85735, 82754, 97408, 866 #### [facility] of [address], [address] [place] [address] Revenue Director: Anthony Tidwell MD RBC (Bld) [#/Vol] 3.95 10*6/uL Low 4.20-5.80 [facility] Comment on above: Performed By: #### 6 517, 7600, 6399, 40895, 59088, 73558, 866 #### [facility] of [place] [address] Revenue Director: Anthony Tidwell MD WBC (Bld) [#/Vol] 5.6 10*3/uL Normal 3.8-10.8 [facility] Comment on above: Performed By: #### 6 517, 7600, 6399, 87923, 56171, 80376, 866 #### [facility] of [place] [address] Revenue Director: Anthony Tidwell MD COMPREHENSIVE METABOLIC PANE L W/ANION GAPon 10-14-2024 Albumin [Mass/Vol] 4.1 g/dL Normal 3.6-5.1 [facility] Comment on above: Performed By: #### 6 517, 7600, 6399, 42021, 61305, 22691, 866 #### [facility] [place] [address] Revenue Director: Anthony Tidwell MD ALP [Catalytic activity/Vol] 52 U/L Normal 35-144 [facility] Comment on above: Performed By: #### 6 517, 7600, 6399, 87126, 61153, 97843, 866 #### [facility] of [place] [address] Revenue Director: Anthony Tidwell MD ALT [Catalytic activity/Vol] 14 U/L Normal 9-46 [facility] Comment on above: Performed By: #### 6 517, 7600, 6399, 26944, 65872, 84872, 866 #### [facility] of [place] [address] Revenue Director: Anthony Tidwell MD AST [Catalytic activity/Vol] 12 U/L Normal 10-35 [facility] Comment on above: Performed By: #### 6 517, 7600, 6399, 55266, 62501, 67534, 866 #### [facility] of [address], [address] [place] [address] Revenue Director: Anthony Tidwell MD Bilirubin [Mass/Vol] 1.7 mg/dL High 0.2-1.2 [facility] Comment on above: Performed By: #### 6 517, 7600, 6399, 24722, 17906, 98569, 866 #### [facility] of [address], [address] [place] [address] Revenue Director: Anthony Tidwell MD Calcium [Mass/Vol] 9.4 mg/dL Normal 8.6-10.3 [facility] Comment on above: Performed By: #### 6 517, 7600, 6399, 46055, 49924, 95875, 866 #### [facility] [place] [address] Revenue Director: Anthony Tidwell MD Chloride [Moles/Vol] 102 mmol/L Normal 98-110 [facility] Comment on above: Performed By: #### 6 517, 7600, 6399, 14494, 52311, 29137, 866 #### [facility] of [address], [address] [place] [address] Revenue Director: Anthony Tidwell MD CO2 [Moles/Vol] 31 mmol/L Normal 20-32 [facility] Comment on above: Performed By: #### 6 517, 7600, 6399, 63330, 70409, 71507, 866 #### [facility] of [address], [address] [place] [address] Revenue Director: Anthony Tidwell MD Creatinine [Mass/Vol] 1.47 mg/dL High 0.70-1.[address] [facility] Comment on above: Performed By: #### 6 517, 7600, 6399, 45335, 87388, 33430, 866 #### [facility] of [address], [address] [place] [address] Revenue Director: Anthony Tidwell MD ELECTROLYTE BALANCE 6 mmol/L (calc) Low 7-17 [facility] Comment on above: Performed By: #### 6 517, 7600, 6399, 01389, 71285, 38406, 866 #### [facility] [place] [address] Revenue Director: Anthony Tidwell MD GFR/1.73 sq M.predicted among non-blacks MDRD (S/P/Bld) [Vol rate/Area] 49 mL/min/{1.73_m2} Low > OR = 60 [facility] Comment on above: Performed By: #### 6 517, 7600, 6399, 40798, 77725, 35007, 866 #### [facility] [place] [address] Revenue Director: Anthony Tidwell MD Glucose [Mass/Vol] 170 mg/dL High 65-99 [facility] Comment on above: Result Comment: Fasting reference interval For someone without known diabetes, a glucose value >125 mg/dL indicates that they may have diabetes and this should be confirmed with a follow-up test. Performed By: #### 6 517, 7600, 6399, 45432, 86014, 37729, 866 #### [facility] [place] [address] Revenue Director: Anthony Tidwell MD Potassium [Moles/Vol] 4.1 mmol/L Normal 3.5-5.[address] [facility] Comment on above: Performed By: #### 6 517, 7600, 6399, 56107, 28224, 49429, 866 #### [facility] [place] [address] Revenue Director: Anthony Tidwell MD Protein [Mass/Vol] 6.6 g/dL Normal 6.1-8.1 [facility] Comment on above: Performed By: #### 6 517, 7600, 6399, 60009, 09063, 53518, 866 #### [facility] [address] [place] [address] Revenue Director: Anthony Tidwell MD Sodium [Moles/Vol] 139 mmol/L Normal 135-146 [facility] Comment on above: Performed By: #### 6 517, 7600, 6399, 47583, 25889, 26319, 866 #### [facility] [address], [address] [place] [address] Revenue Director: Anthony Tidwell MD Urea nitrogen [Mass/Vol] 26 mg/dL High 7-25 [facility] Comment on above: Performed By: #### 6 517, 7600, 6399, 24806, 16024, 84528, 866 #### [facility] [address], [address] [place] [address] Revenue Director: Anthony Tidwell MD HEMOGLOBIN A1c WITH eAGon eAG (mmol/L) 8.5 mmol/L Normal [facility] Comment on above: Performed By: #### 6 517, 7600, 6399, 09573, 15766, 30094, 866 #### [facility] [address], [address] [place] [address] Revenue Director: Anthony Tidwell MD HEMOGLOBIN A1c 7.0 % of total Hgb High <5.7 [facility] Comment on above: Result Comment: For someone without known diabetes, a hemoglobin A1c value of 6.5% or greater indicates that they may have diabetes and this should be confirmed with a follow-up test. For someone with known diabetes, a value <7% indicates that their diabetes is well controlled and a value greater than or equal to 7% indicates suboptimal control. A1c targets should be individualized based on duration of diabetes, age, comorbid conditions, and other considerations. Currently, no consensus exists regarding use of hemoglobin A1c for diagnosis of diabetes for children. Performed By: #### 6 517, 7600, 6399, 41982, 34903, 74093, 866 #### [facility] [address], [address] [place] [address] Revenue Director: Anthony Tidwell MD Magnesium [Mass/Vol] 154 mg/dL Normal [facility] Comment on above: Performed By: #### 6 517, 7600, 6399, 23630, 89392, 21077, 866 #### [facility] [address], [address] [place] [address] Revenue Director: Anthony Tidwell MD LIPID PANEL, [facility] 03-0 Cholesterol [Mass/Vol] 74 mg/dL Normal <200 [facility] Comment on above: Order Comment: FASTI NG:YES FASTING: YES Performed By: #### 7 600, 78199, 6517, 55090, 14238, 6399 #### [facility] [address], [address] [place] [address] Revenue Director: Anthony Tidwell MD Cholesterol in HDL [Mass/Vol] 43 mg/dL Normal > OR = 40 [facility] Comment on above: Order Comment: FASTI NG:YES FASTING: YES Performed By: #### 7 600, 68645, 6517, 45771, 68990, 6399 #### [facility] [address], [address] [place] [address] Revenue Director: Anthony Tidwell MD Cholesterol in LDL [Mass/Vol] 15 mg/dL Normal [facility] Comment on above: Order Comment: FASTI NG:YES FASTING: YES Result Comment: Refe rence range: <100 Desirable range <100 mg/dL for primary prevention; <70 mg/dL for patients with CHD or diabetic patients with > or = 2 CHD risk factors. LDL-C is now calculated using the Damien-Jose L calculation, which is a validated novel method providing better accuracy than the Friedewald equation in the estimation of LDL-C. Damien SOTO et al. LEE. 2013;310(19): 2839-2682 (http://education.App in the Air.Culture Jam/faq/OQD199) Performed By: #### 7 600, 43921, 6517, 24747, 36997, 6399 #### [facility] [address], [address] [place] [address] Revenue Director: Anthony Tidwell MD Cholesterol.total/Cho lesterol in HDL [Mass ratio] 1.7 {ratio} Normal <5.0 [facility] Comment on above: Order Comment: FASTI NG:YES FASTING: YES Performed By: #### 7 600, 07278, 6517, 19077, 43627, 6399 #### [facility] [place] [address] Revenue Director: Anthony Tidwell MD NON HDL CHOLESTEROL 31 mg/dL (calc) Normal <130 [facility] Comment on above: Order Comment: FASTI NG:YES FASTING: YES Result Comment: For patients with diabetes plus 1 major ASCVD risk factor, treating to a non-HDL-C goal of <100 mg/dL (LDL-C of <70 mg/dL) is considered a therapeutic option. Performed By: #### 7 600, 98502, 6517, 65326, 47428, 6399 #### [facility] [place] [address] Revenue Director: Anthony Tidwell MD Triglyceride [Mass/Vol] 78 mg/dL Normal <150 [facility] Comment on above: Order Comment: FASTI NG:YES FASTING: YES Performed By: #### 7 600, 80177, 6517, 82508, 72216, 6399 #### [facility] [place] [address] Revenue Director: Anthony Tidwell MD TSH W/REFLEX TO FT4on 2024 TSH W/REFLEX TO FT4 3.40 mIU/L Normal 0.40-4.50 [facility] Comment on above: Performed By: #### 6 517, 7600, 6399, 13340, 97878, 53772, 866 #### [facility] [place] [address] Revenue Director: Anthony Tidwell MD VITAMIN B12on 10-14-2024 Cobalamin (Vitamin B12) [Mass/Vol] 936 pg/mL Normal 200-1100 [facility] Comment on above: Performed By: #### 6 517, 4630, 6399, 79983, 96119, 25211, 866 #### [facility] [place] [address] [facility], [address] [place] [address] Revenue Director: Anthony Tidwell MD CBC W Auto Differential pane l (Bld)on 04-28-2024 Basophils (Bld) [#/Vol] 0.04 x10*3/uL Normal 0.00-0.[address] [facility] Comment on above: Performed By: #### 5 7021-8 #### ELISEO BOWERS ([id number]) [facility] ([facility]) [address] [place] [address] 50985 Basophils/100 WBC (Bld) 0.6 % Normal 0.0-2.[address] [facility] Comment on above: Performed By: #### 5 7021-8 #### ELISEO BOWERS ([id number]) [facility] ([facility]) [address] [place] [address] 31844 Eosinophils (Bld) [#/Vol] 0.39 x10*3/uL Normal 0.00-0.[address] [facility] Comment on above: Performed By: #### 5 7021-8 #### ELISEO BOWERS ([id number]) [facility] ([facility]) [address] [place] [address] 07243 Eosinophils/100 WBC (Bld) 6.0 % Normal 0.0-6.[address] [facility] Comment on above: Performed By: #### 5 7021-8 #### ELISEO BOWERS ([id number]) [facility] ([facility]) [address] [place] [address] 57116 Erythrocyte distribution width (RBC) [Ratio] 13.9 % Normal 11.5-14.[address] [facility] Comment on above: Performed By: #### 5 7021-8 #### ELISEO BOWERS ([id number]) [facility] ([facility]) [address] [place] [address] 90562 Hematocrit (Bld) [Volume fraction] 43.3 % Normal 41.0-52.[address] [facility] Comment on above: Performed By: #### 5 7021-8 #### ELISEO BOWERS ([id number]) [facility] ([facility]) [address] [place] [address] 46947 Hemoglobin (Bld) [Mass/Vol] 13.5 g/dL Normal 13.5-17.[address] [facility] Comment on above: Performed By: #### 5 7021-8 #### ELISEO BOWERS ([id number]) [facility] ([facility]) [address] [place] [address] 42219 Immature granulocytes (Bld) [#/Vol] 0.01 x10*3/uL Normal 0.00-0.[address] [facility] Comment on above: Performed By: #### 5 7021-8 #### ELISEO BOWERS ([id number]) [facility] ([facility]) [address] [place] [address] 48639 Immature granulocytes/100 WBC (Bld) 0.2 % Normal 0.0-0.[address] [facility] Comment on above: Result Comment: Symone ture Granulocyte Count (IG) includes promyelocytes, myelocytes and metamyelocytes but does not include bands. Percent differential counts (%) should be interpreted in the context of the absolute cell counts (cells/UL). Performed By: #### 5 7021-8 #### ELISEO BOWERS ([id number]) [facility] ([facility]) [address] [place] [address] 15606 Lymphocytes (Bld) [#/Vol] 1.32 x10*3/uL Normal 0.80-3.[address] [facility] Comment on above: Performed By: #### 5 7021-8 #### ELISEO BOWERS ([id number]) [facility] ([facility]) [address] [place] [address] 18027 Lymphocytes/100 WBC (Bld) 20.3 % Normal 13.0-44.[address] [facility] Comment on above: Performed By: #### 5 7021-8 #### ELISEO BOWERS ([id number]) [facility] ([facility]) [address] [place] [address] 81671 MCH (RBC) [Entitic mass] 32.0 pg Normal 26.0-34.[address] [facility] Comment on above: Performed By: #### 5 7021-8 #### ELISEO BOWERS ([id number]) [facility] ([facility]) [address] [place] [address] 30125 MCHC (RBC) [Mass/Vol] 31.2 g/dL Low 32.0-36.0 [facility] Comment on above: Performed By: #### 5 7021-8 #### ELISEO BOWERS ([id number]) [facility] ([facility]) [address] [place] [address] 96065 MCV (RBC) [Entitic vol] 103 fL High 80-[address] [facility] Comment on above: Performed By: #### 5 7021-8 #### ELISEO BOWERS ([id number]) [facility] ([facility]) [address] [place] [address] 60052 Monocytes (Bld) [#/Vol] 0.65 x10*3/uL Normal 0.05-0.[address] [facility] Comment on above: Performed By: #### 5 7021-8 #### ELISEO BOWERS ([id number]) [facility] ([facility]) [address] [place] [address] 80371 Monocytes/100 WBC (Bld) 10.0 % Normal 2.0-10.[address] [facility] Comment on above: Performed By: #### 5 7021-8 #### ELISEO BOWERS ([id number]) [facility] ([facility]) [address] [place] [address] 32437 Neutrophils (Bld) [#/Vol] 4.09 x10*3/uL Normal 1.60-5.[address] [facility] Comment on above: Result Comment: Perc ent differential counts (%) should be interpreted in the context of the absolute cell counts (cells/uL). Performed By: #### 5 7021-8 #### ELISEO BOWERS ([id number]) [facility] ([facility]) [address] [place] [address] 68136 Neutrophils/100 WBC (Bld) 62.9 % Normal 40.0-80.[address] [facility] Comment on above: Performed By: #### 5 7021-8 #### ELISEO BOWERS ([id number]) [facility] ([facility]) [address] [place] [address] 07507 Nucleated RBC/100 WBC (Bld) [Ratio] 0.0 /100 WBCs Normal 0.0-0.[address] [facility] Comment on above: Performed By: #### 5 7021-8 #### ELISEO BOWERS ([id number]) [facility] ([facility]) [address] [place] [address] 75593 Platelets (Bld) [#/Vol] 237 x10*3/uL Normal 150-[address] [facility] Comment on above: Performed By: #### 5 7021-8 #### ELISEO BOWERS ([id number]) [facility] ([facility]) [address] [place] [address] 47546 RBC (Bld) [#/Vol] 4.22 x10*6/uL Low 4.50-5.90 [facility] Comment on above: Performed By: #### 5 7021-8 #### ELISEO BOWERS ([id number]) [facility] ([facility]) [address] [place] [address] 94122 WBC (Bld) [#/Vol] 6.5 x10*3/uL Normal 4.4-11.3 [facility] Comment on above: Performed By: #### 5 7021-8 #### ELISEO BOWERS ([id number]) [facility] ([facility]) [address] [place] [address] 37423 Cobalaminson 04-28-2024 Cobalamin (Vitamin B12) [Mass/Vol] 2150 pg/mL High 211-[address] [facility] Comment on above: Performed By: #### 2 132-9 #### ELISEO BOWERS ([id number]) [facility] ([facility]) [address] [place] [address] 86090 Comprehensive metabolic 2000 panelon 04-28-2024 Albumin BCP dye [Mass/Vol] 4.2 g/dL Normal 3.4-5.[address] [facility] Comment on above: Performed By: #### 2 4323-8 #### ELISEO BOWERS ([id number]) [facility] ([facility]) [address] [place] [address], [place] [address] ALP [Catalytic activity/Vol] 62 U/L Normal 33-[address] [facility] Comment on above: Performed By: #### 2 432-8 #### ELISEO BOWERS ([id number]) [facility] ([facility]) [address] [place] [address] ALT With P-5'-P [Catalytic activity/Vol] 16 U/L Normal 10-[address] [facility] Comment on above: Result Comment: Ping ents treated with Sulfasalazine may generate falsely decreased results for ALT. Performed By: #### 2 432-8 #### ELISEO BOWERS ([id number]) [facility] ([facility]) [address] [place] [address] 69282 Anion gap [Moles/Vol] 11 mmol/L Normal 10-20 [facility] Comment on above: Performed By: #### 2 4322-8 #### ELISEO BOWERS ([id number]) [facility] ([facility]) [address] [place] [address] 09247 AST With P-5'-P [Catalytic activity/Vol] 15 U/L Normal 9-[address] [facility] Comment on above: Performed By: #### 2 4322-8 #### ELISEO BOWERS ([id number]) [facility] ([facility]) [address] [place] [address] 21624 Bilirubin [Mass/Vol] 1.2 mg/dL Normal 0.0-1.2 [facility] Comment on above: Performed By: #### 2 3-8 #### ELISEO BOWERS ([id number]) [facility] ([facility]) [address] [place] [address] 92562 Calcium [Mass/Vol] 9.5 mg/dL Normal 8.6-10.3 [facility] Comment on above: Performed By: #### 2 432-8 #### ELISEO BOWERS ([id number]) [facility] ([facility]) [address] [place] [address] 21599 Chloride [Moles/Vol] 104 mmol/L Normal 98-107 [facility] Comment on above: Performed By: #### 2 4323-8 #### ELISEO BOWERS ([id number]) [facility] ([facility]) [address] [place] [address] 60464 CO2 [Moles/Vol] 30 mmol/L Normal 21-32 [facility] Comment on above: Performed By: #### 2 432-8 #### ELISEO BOWERS ([id number]) [facility] ([facility]) [address] [place] [address] 39388 Creatinine [Mass/Vol] 1.52 mg/dL High 0.50-1.30 [facility] Comment on above: Performed By: #### 2 4322-8 #### ELISEO BOWERS ([id number]) [facility] ([facility]) [address] [place] [address] 72671 Glomerular filtration rate/1.73 sq M.predicted 47 mL/min/1.73m*2 Low >[address] [facility] Comment on above: Result Comment: Calc ulations of estimated GFR are performed using the 2020 CKD-EPI Study Refit equation without the race variable for the IDMS-Traceable creatinine methods. https://jasn.asnjournals.org/content//ASN.515949 4445 Performed By: #### 2 432-8 #### ELISEO BOWERS ([id number]) [facility] ([facility]) [address] [place] [address] 99643 Glucose [Mass/Vol] 117 mg/dL High 74-99 [facility] Comment on above: Performed By: #### 2 432-8 #### ELISEO BOWERS ([id number]) [facility] ([facility]) [address] [place] [address] 98221 Potassium [Moles/Vol] 4.4 mmol/L Normal 3.5-5.3 [facility] Comment on above: Performed By: #### 2 432-8 #### ELISEO BOWERS ([id number]) [facility] ([facility]) [address] [place] [address] 42035 Protein [Mass/Vol] 6.6 g/dL Normal 6.4-8.2 [facility] Comment on above: Performed By: #### 2 4323-8 #### ELISEO BOWERS ([id number]) [facility] ([facility]) [facility] [place] [address] Sodium [Moles/Vol] 141 mmol/L Normal 136-145 [facility] Comment on above: Performed By: #### 2 4323-8 #### ELISEO BOWERS ([id number]) [facility] ([facility]) [address] [place] [address] Urea nitrogen [Mass/Vol] 23 mg/dL Normal 6-[address] [facility] Comment on above: Performed By: #### 2 4323-8 #### ELISEO BOWERS ([id number]) [facility] ([facility]) [address] [place] [address] 76897 HbA1c (Bld) [Mass fraction]o n 04-28-2024 Average glucose Estimated from glycated hemoglobin (Bld) [Mass/Vol] 131 mg/dL Normal Not Established [facility] Comment on above: Order Comment: Diagn osis of Diabetes-Adults Non-Diabetic: < or = 5.6% Increased risk for developing diabetes: 5.7-6.4% Diagnostic of diabetes: > or = 6.5% Performed By: #### 4 548-4 #### SERGIO Stewart ([id number]) [facility] ([facility]) [address] [place] [address] Hemoglobin A1c/Hemoglobin.to kiera 04-28-2024 HbA1c (Bld) [Mass fraction] 6.2 % High see below [facility] Comment on above: Order Comment: Diagn osis of Diabetes-Adults Non-Diabetic: < or = 5.6% Increased risk for developing diabetes: 5.7-6.4% Diagnostic of diabetes: > or = 6.5% Performed By: #### 4 548-4 #### SERGIO Stewart ([id number]) [facility] ([facility]) [id number] [place] [address]12 Lipid 1996 panelon Cholesterol [Mass/Vol] 75 mg/dL Normal 0-[address] [facility] Comment on above: Result Comment: Age Desirable Borderline High High 0-19 Y 0 - 169 170 - 199 >/= 200 20-24 Y 0 - 189 190 - 224 >/= 225 >24 Y 0 - 199 200 - 239 >/= 240 All ranges are based on fasting samples. Specific therapeutic targets will vary based on patient-specific cardiac risk. Pediatric guidelines reference:Pediatrics 2011, 128(S5).Adult guidelines reference: NCEP ATPIII Guidelines,LEE 2001, 258:2486-97 Venipuncture immediately after or during the administration of Metamizole may lead to falsely low results. Testing should be performed immediately prior to Metamizole dosing. Performed By: #### 2 4331-1 #### ELISEO BOWERS ([id number]) [facility] ([facility]) [address] [place] [address] Cholesterol in HDL [Mass/Vol] 49.0 mg/dL Normal [facility] Comment on above: Result Comment: Age Very Low Low Normal High 0-19 Y < 35 < 40 40-45 ---- 20-24 Y ---- < 40 >45 ---- >24 Y ---- < 40 40-60 >60 Performed By: #### 2 4331-1 #### ELISEO BOWERS ([id number]) [facility] ([facility]) [address] [place] [address] 04570 Cholesterol in LDL [Mass/Vol] 12 mg/dL Normal <=[address] [facility] Comment on above: Result Comment: Near Borderline AGE Desirable Optimal High High Very High 0-19 Y 0 - 109 --- 110-129 >/= 130 ---- 20-24 Y 0 - 119 --- 120-159 >/= 160 ---- >24 Y 0 - 99 100-129 130-159 160-189 >/=190 Performed By: #### 2 4331-1 #### ELISEO BOWERS ([id number]) [facility] ([facility]) [address] [place] [address] 77064 Cholesterol in VLDL [Mass/Vol] 14 mg/dL Normal 0-[address] [facility] Comment on above: Performed By: #### 2 4331-1 #### ELISEO BOWERS ([id number]) [facility] ([facility]) [facility] [place] [address] CHOLESTEROL/HDL RATIO 1.5 Normal [facility] Comment on above: Result Comment: Ref Values Desirable < 3.4 High Risk > 5.0 Performed By: #### 2 4331-1 #### ELISEO BOWERS ([id number]) [facility] ([facility]) [address] [place] [address] 36403 NON HDL CHOLESTEROL 26 mg/dL Normal 0-149 [facility] Comment on above: Result Comment: Age Desirable Borderline High High Very High 0-19 Y 0 - 119 120 - 144 >/= 145 >/= 160 20-24 Y 0 - 149 150 - 189 >/= 190 ---- >24 Y 30 mg/dL above LDL Cholesterol goal Performed By: #### 2 4331-1 #### ELISEO BOWERS ([id number]) [facility] ([facility]) [address] [place] [address] 15061 Triglyceride [Mass/Vol] 69 mg/dL Normal 0-[address] [facility] Comment on above: Result Comment: Age Desirable Borderline High High Very High 0 D-90 D 19 - 174 ---- ---- ---- 91 D- 9 Y 0 - 74 75 - 99 >/= 100 ---- 10-19 Y 0 - 89 90 - 129 >/= 130 ---- 20-24 Y 0 - 114 115 - 149 >/= 150 ---- >24 Y 0 - 149 150 - 199 200- 499 >/= 500 Venipuncture immediately after or during the administration of Metamizole may lead to falsely low results. Testing should be performed immediately prior to Metamizole dosing. Performed By: #### 2 4331-1 #### ELISEO BOWERS ([id number]) [facility] ([facility]) [address] [place] [address] 964[address] TSH WITH REFLEX TO FREE T4 I F ABNORMALon 04-28-2024 TSH Qn 3.44 m[IU]/L Normal 0.44-3.[address] [facility] Comment on above: Order Comment: TSH t esting is performed using different testing methodology at [facility] than at other [facility]. Direct result comparisons should only be made within the same method. Performed By: #### T DACIA #### GOMES ELISSA ([id number]) [facility] ([facility]) [address] [place] [address] XR CHEST 2 VIEWSon XR CHEST 2 VIEWS Interpreted By: Johnathan Vásquez, STUDY: XR CHEST 2 VIEWS; 11/09/2023 12:11 pm INDICATION: Signs/Symptoms:S/P CABG X3. COMPARISON: September 10, [address], and September 18, 2023 chest radiograph. ACCESSION NUMBER(S): [id number] ORDERING CLINICIAN: JOSE CARLOS MALAGON FINDINGS: LIFE SUPPORT DEVICES: None CARDIOMEDIASTINAL SILHOUETTE: Stable cardiomediastinal silhouette including atrial clip. LUNGS: Stable expansion and aeration with minor left basilar platelike atelectasis or scar. No acute consolidative pneumonia, edema, or effusion. ABDOMEN: No remarkable upper abdominal findings. BONES: No acute osseous changes. IMPRESSION: 1. No evidence of acute cardiopulmonary process. Signed by: Johnathan Vásquez 11/11/2023 12:00 PM Dictation workstation: [id number] [facility] ECG 12 lead (Ancillary Perfo rmed)Ordered By: Milo Velazquez on 09-22-2023 Atrial Rate 98 BPM [facility] Work Phone: P Fate 58 degrees [facility] Work Phone: [phone] P Offset 178 ms [facility] Work Phone: [phone] P Onset 142 ms [facility] Work Phone: [phone] WV Interval 142 ms [facility] Work Phone: [phone] Q Onset 213 ms [facility] Work Phone: [phone] QRS Count 16 beats [facility] Work Phone: [phone] QRS Duration 126 ms [facility] Work Phone: [phone] QT Interval 366 ms [facility] Work Phone: [phone] QTC Calculation(Bazett) 467 ms [facility] Work Phone: QTC Fredericia 431 ms [facility] Work Phone: [phone] R Fate 87 degrees [facility] Work Phone: [phone] T Fate -6 degrees [facility] Work Phone: [phone] T Offset 396 ms [facility] Work Phone: [phone] Ventricular Rate 98 BPM [facility] Work Phone: [phone] [facility] Work Phone: [phone] ECG 12 lead (Ancillary Perfo rmed)on 09-22-2023 Sinus rhythm with Premature ventricular complexes or Fusion complexes Left bundle branch block Abnormal ECG No previous ECGs available Confirmed by Milo Velazquez ([id number]) on 09/22/2023 12:16:43 PM MUSE Milo Velazquez S, DO - 09/22/2023 Sinus rhythm with Premature ventricular complexes or Fusion complexes Left bundle branch block Abnormal ECG No previous ECGs available Confirmed by Milo Velazquez ([id number]) on 09/22/2023 12:16:43 PM [facility] Work Phone: XR CHEST PA/APon 09-20-2023 XR CHEST PA/AP EXAMINATION: XR CHEST PA/AP 09/20/2023 3:36 am HISTORY: ORDERING SYSTEM PROVIDED HISTORY: Altered mental status, TECHNOLOGIST PROVIDED HISTORY: Illness/Other Reason for exam: hallucinations after taking prescribed pain medication at home. Denies chest complaints. Cancer History: u Surgery, RadiationHistory: u Encounter Type: Initial Additional signs and symptoms: Recent open heart surgery on 09/15 at outside facility ORDERING SYSTEM PROVIDED DIAGNOSIS CODES: COMPARISON: CT chest 01/10/2019 FINDINGS: Prior sternotomy. Borderline prominent heart size. Mild streaky atelectasis/scar at the bilateral lower lungs. A 3.3 cm metallic density object located at the left mediastinum reflect prior surgical changes or external object. No lobar lung consolidation, large pleural effusion, pneumothorax, or acute bony abnormality. IMPRESSION: Mild streaky atelectasis/scar at the bilateral lower lungs. Borderline prominent heart size. Workstation ID: [id number] Dictated by: FENG OLSON on WedSep 20, 2023 3:49:03 AM EST Transcribed by: FENG OLSON on WedSep 20, 2023 3:49:03 AM EST Finalized by: FENG OLSON on WedSep 20, 2023 3:49:03 AM EST Normal [facility] Comment on above: Order Comment: Injur y/Trauma or Illness?:Illness/Other How long have you had these symptoms (acute/chronic)?:Acute Reason for exam?:hallucinations after taking prescribed pain medication at home. Denies chest complaints. History of cancer?:u Surgeries, chemotherapy, or radiation?:u Type of Exam?:Initial Additional signs and symptoms?:Recent open heart surgery on 09/15 at outside facility CBC panel Auto (Bld)on 09-18 Erythrocyte distribution width (RBC) [Ratio] 13.5 % 11.5 - 14.5 % [facility] Hematocrit (Bld) [Volume fraction] 28.2 % Low 41.0 - 52.0 % [facility] Hemoglobin (Bld) [Mass/Vol] 9.3 g/dL Low 13.5 - 17.5 g/dL [facility] Interpretation and review of laboratory results Abnormal [facility] MCH (RBC) [Entitic mass] 33.8 pg 26.0 - 34.0 pg [facility] MCHC (RBC) [Mass/Vol] 33.0 g/dL 32.0 - 36.0 g/dL [facility] MCV (RBC) [Entitic vol] 103 fL High 80 - 100 fL [facility] Nucleated RBC/100 WBC (Bld) [Ratio] 0.0 % [facility] Platelets (Bld) [#/Vol] 188 10*3/uL [facility] RBC (Bld) [#/Vol] 2.75 10*6/uL Low [facility] WBC (Bld) [#/Vol] 8.0 10*3/uL [facility] Erythrocyte distribution width (RBC) [Ratio] 13.5 % Normal 11.5-14.5 [facility] Comment on above: Performed By: #### 3 016-3 #### PATRICIA NAVARRETE ([id number]) [facility] ([facility]) [address] [place] [address] Hematocrit (Bld) [Volume fraction] 28.2 % Low 41.0-52.0 [facility] Comment on above: Performed By: #### 3 016-3 #### PATRICIA NAVARRETE ([id number]) [facility] ([facility]) [address] [place] [address] Hemoglobin (Bld) [Mass/Vol] 9.3 g/dL Low 13.5-17.5 [facility] Comment on above: Performed By: #### 3 016-3 #### PATRICIA NAVARRETE ([id number]) [facility] ([facility]) [address] [place] [address] MCH (RBC) [Entitic mass] 33.8 pg Normal 26.0-34.0 [facility] Comment on above: Performed By: #### 3 016-3 #### PATRICIA NAVARRETE ([id number]) [facility] ([facility]) [address] [place] [address] MCHC (RBC) [Mass/Vol] 33.0 g/dL Normal 32.0-36.0 [facility] Comment on above: Performed By: #### 3 016-3 #### PATRICIA NAVARRETE ([id number]) [facility] ([facility]) [address] [place] [address] MCV (RBC) [Entitic vol] 103 fL High 80-100 [facility] Comment on above: Performed By: #### 3 016-3 #### PATRICIA NAVARRETE ([id number]) [facility] ([facility]) [address] [place] [address] Nucleated RBC/100 WBC (Bld) [Ratio] 0.0 /100 WBCs Normal 0.0-0.0 [facility] Comment on above: Performed By: #### 3 016-3 #### PATRICIA NAVARRETE ([id number]) [facility] ([facility]) [address] [place] [address] Platelets (Bld) [#/Vol] 188 x10*3/uL Normal 150-450 [facility] Comment on above: Performed By: #### 3 016-3 #### PATRICIA NAVARRETE ([id number]) [facility] ([facility]) [address] [place] [address] RBC (Bld) [#/Vol] 2.75 x10*6/uL Low 4.50-5.90 [facility] Comment on above: Performed By: #### 3 016-3 #### PATRICIA NAVARRETE ([id number]) [facility] ([facility]) [address] [place] [address] WBC (Bld) [#/Vol] 8.0 x10*3/uL Normal 4.4-11.3 [facility] Comment on above: Performed By: #### 3 016-3 #### PATRICIA NAVARRETE ([id number]) [facility] ([facility]) [address] [place] [address] Glucose Test strip manual (B ld) [Mass/Vol]on 09-18-2023 Glucose [Mass/Vol] 211 mg/dL High 74 - 99 mg/dL [facility] Interpretation and review of laboratory results Abnormal [facility] Glucose [Mass/Vol] 211 mg/dL High 74-99 [facility] Comment on above: Performed By: #### 3 016-3 #### PATRICIA NAVARRETE ([id number]) [facility] ([facility]) [address] [place] [address] Glucose [Mass/Vol] 214 mg/dL High 74 - 99 mg/dL [facility] Interpretation and review of laboratory results Abnormal [facility] Glucose [Mass/Vol] 214 mg/dL High 74-99 [facility] Comment on above: Performed By: #### 3 016-3 #### PATRICIA NAVARRETE ([id number]) [facility] ([facility]) [address] [place] [address] Magnesiumon 09-18-2023 Magnesium [Mass/Vol] 1.61 mg/dL 1.60 - 2.40 mg/dL [facility] Magnesium [Mass/Vol] 1.61 mg/dL Normal 1.60-2.40 [facility] Comment on above: Performed By: #### 3 016-3 #### PATRICIA NAVARRETE ([id number]) [facility] ([facility]) [address] [place] [address] Magnesium [Mass/Vol]on 09-18 Interpretation and review of laboratory results Normal [facility] No Panel Informationon 09-18 [facility] Renal function 2000 panelon 09-18-2023 Albumin BCP dye [Mass/Vol] 3.3 g/dL Low 3.4 - 5.0 g/dL [facility] Anion gap [Moles/Vol] 13 mmol/L 10 - 2 0 mmol/L [facility] Calcium [Mass/Vol] 8.8 mg/dL 8.6 - 10. 3 mg/dL [facility] Chloride [Moles/Vol] 95 mmol/L Low 98 - 10 7 mmol/L [facility] CO2 [Moles/Vol] 32 mmol/L 21 - 32 mmol/L [facility] Creatinine [Mass/Vol] 1.55 mg/dL High 0.50 - 1.30 mg/dL [facility] GFR/1.73 sq M.predicted among non-blacks MDRD (S/P/Bld) [Vol rate/Area] 46 mL/min/{1.73_m2} Low - PINF [facility] Glucose [Mass/Vol] 210 mg/dL High 74 - 99 mg/dL [facility] Interpretation and review of laboratory results Abnormal [facility] Phosphate [Mass/Vol] 3.6 mg/dL 2.5 - 4 .9 mg/dL [facility] Potassium [Moles/Vol] 3.9 mmol/L 3.5 - 5.3 mmol/L [facility] Sodium [Moles/Vol] 136 mmol/L 136 - 145 mmol/L [facility] Urea nitrogen [Mass/Vol] 49 mg/dL High 6 - 23 mg/dL [facility] Albumin BCP dye [Mass/Vol] 3.3 g/dL Low 3.4-5.0 [facility] Comment on above: Performed By: #### 3 016-3 #### PATRICIA NAVARRETE ([id number]) [facility] ([facility]) [address] [place] [address] Anion gap [Moles/Vol] 13 mmol/L Normal 10-20 [facility] Comment on above: Performed By: #### 3 016-3 #### PATRICIA NAVARRETE ([id number]) [facility] ([facility]) [address] [place] [address] Calcium [Mass/Vol] 8.8 mg/dL Normal 8.6-10.3 [facility] Comment on above: Performed By: #### 3 016-3 #### PATRICIA NAVARRETE ([id number]) [facility] ([facility]) [address] [place] [address] Chloride [Moles/Vol] 95 mmol/L Low 98-107 [facility] Comment on above: Performed By: #### 3 016-3 #### PATRICIA NAVARRETE ([id number]) [facility] ([facility]) [address] [place] [address] CO2 [Moles/Vol] 32 mmol/L Normal 21-[address] [facility] Comment on above: Performed By: #### 3 016-3 #### PATRICIA NAVARRETE ([id number]) [facility] ([facility]) [address] [place] [address] Creatinine [Mass/Vol] 1.55 mg/dL High 0.50-1.30 [facility] Comment on above: Performed By: #### 3 016-3 #### PATRICIA NAVARRETE ([id number]) [facility] ([facility]) [address] [place] [address] Glomerular filtration rate/1.73 sq M.predicted 46 mL/min/1.73m*2 Low >60 [facility] Comment on above: Result Comment: Calc ulations of estimated GFR are performed using the 2020 CKD-EPI Study Refit equation without the race variable for the IDMS-Traceable creatinine methods. https://jasn.asnjournals.org/content//ASN.767430 4806 Performed By: #### 3 016-3 #### PATRICIA NAVARRETE ([id number]) [facility] ([facility]) [address] [place] [address] Glucose [Mass/Vol] 210 mg/dL High 74-99 [facility] Comment on above: Performed By: #### 3 016-3 #### PATRICIA NAVARRETE ([id number]) [facility] ([facility]) [address] [place] [address] Phosphate [Mass/Vol] 3.6 mg/dL Normal 2.5-4.9 [facility] Comment on above: Result Comment: The performance characteristics of phosphorus testing in heparinized plasma have been validated by the individual laboratory site where testing is performed. Testing on heparinized plasma is not approved by the FDA; however, such approval is not necessary. Performed By: #### 3 016-3 #### PATRICIA NAVARRETE ([id number]) [facility] ([facility]) [address] [place] [address] Potassium [Moles/Vol] 3.9 mmol/L Normal 3.5-5.3 [facility] Comment on above: Performed By: #### 3 016-3 #### PATRICIA NAVARRETE ([id number]) [facility] ([facility]) [address] [place] [address] Sodium [Moles/Vol] 136 mmol/L Normal 136-145 [facility] Comment on above: Performed By: #### 3 016-3 #### PATRICIA NAVARRETE ([id number]) [facility] ([facility]) [address] [place] [address] Urea nitrogen [Mass/Vol] 49 mg/dL High 6-23 [facility] Comment on above: Performed By: #### 3 016-3 #### PATRICIA NAVARRETE ([id number]) [facility] ([facility]) [address] [place] [address] XR CHEST 1 VIEWon 09-18-2023 XR CHEST 1 VIEW Interpreted By: Zheng Villagomez, STUDY: XR CHEST 1 VIEW; 09/18/2023 5:45 am INDICATION: Signs/Symptoms:S/p CABG. COMPARISON: Chest CT 09/10/2023 and multiple chest radiographs most recently 09/17/2023 ACCESSION NUMBER(S): [id number] ORDERING CLINICIAN: MARY GARCIA FINDINGS: Two-view chest DEVICES: Status post median sternotomy CARDIOMEDIASTINAL SILHOUETTE: Cardiomediastinal silhouette is stable in size and configuration.No significant atherosclerotic calcification. LUNGS: Bibasilar atelectasis. No focal consolidation. No pneumothorax no pleural effusion. BONES: No acute osseous changes. IMPRESSION: 1. No evidence of acute cardiopulmonary process. Signed by: Zheng Delacruz 09/19/2023 11:41 AM Dictation workstation: [id number] Normal [facility] CBC panel Auto (Bld)on 09-17 Erythrocyte distribution width (RBC) [Ratio] 13.7 % 11.5 - 14.5 % [facility] Hematocrit (Bld) [Volume fraction] 26.7 % Low 41.0 - 52.0 % [facility] Hemoglobin (Bld) [Mass/Vol] 8.9 g/dL Low 13.5 - 17.5 g/dL [facility] Interpretation and review of laboratory results Abnormal [facility] MCH (RBC) [Entitic mass] 34.5 pg High 26.0 - 34.0 pg [facility] MCHC (RBC) [Mass/Vol] 33.3 g/dL 32.0 - 36.0 g/dL [facility] MCV (RBC) [Entitic vol] 104 fL High 80 - 100 fL [facility] Nucleated RBC/100 WBC (Bld) [Ratio] 0.0 % [facility] Platelets (Bld) [#/Vol] 141 10*3/uL Low [facility] RBC (Bld) [#/Vol] 2.58 10*6/uL Low [facility] WBC (Bld) [#/Vol] 7.0 10*3/uL [facility] Erythrocyte distribution width (RBC) [Ratio] 13.7 % Normal 11.5-14.5 [facility] Comment on above: Performed By: #### V ERAB #### PATRICIA NAVARRETE ([id number]) [facility] ([facility]) [address] [place] [address] [place] Hematocrit (Bld) [Volume fraction] 26.7 % Low 41.0-52.0 [facility] Comment on above: Performed By: #### V ERAB #### PATRICIA NAVARRETE ([id number]) [facility] ([facility]) [address] [place] [address] [place] Hemoglobin (Bld) [Mass/Vol] 8.9 g/dL Low 13.5-17.5 [facility] Comment on above: Performed By: #### V ERAB #### PATRICIA NAVARRETE ([id number]) [facility] ([facility]) [address] [place] [address] [place] MCH (RBC) [Entitic mass] 34.5 pg High 26.0-34.0 [facility] Comment on above: Performed By: #### V ERAB #### PATRICIA NAVARRETE ([id number]) [facility] ([facility]) [address] [facility] [place] [address] [place] MCHC (RBC) [Mass/Vol] 33.3 g/dL Normal 32.0-36.0 [facility] Comment on above: Performed By: #### V ERAB #### PATRICIA NAVARRETE ([id number]) [facility] ([facility]) [address] [facility] [place] [address] [place] MCV (RBC) [Entitic vol] 104 fL High 80-100 [facility] Comment on above: Performed By: #### Polly ERAB #### PATRICIA NAVARRETE ([id number]) [facility] ([facility]) [address] [facility] [place] [address] [place] Nucleated RBC/100 WBC (Bld) [Ratio] 0.0 /100 WBCs Normal 0.0-0.0 [facility] Comment on above: Performed By: #### V ERAB #### PATRICIA NAVARRETE ([id number]) [facility] ([facility]) [address] [facility] [place] [address] [place] Platelets (Bld) [#/Vol] 141 x10*3/uL Low 150-450 [facility] Comment on above: Performed By: #### V ERAB #### PATRICIA NAVARRETE ([id number]) [facility] ([facility]) [address] [facility] [place] [address] [place] RBC (Bld) [#/Vol] 2.58 x10*6/uL Low 4.50-5.90 [facility] Comment on above: Performed By: #### V ERAB #### PATRICIA NAVARRETE ([id number]) [facility] ([facility]) [address] [facility] [place] [address] [place] WBC (Bld) [#/Vol] 7.0 x10*3/uL Normal 4.4-11.3 [facility] Comment on above: Performed By: #### V ERAB #### PATRICIA NAVARRETE ([id number]) [facility] ([facility]) [address] [place] [address] [place] Glucose Test strip manual (B ld) [Mass/Vol]on 09-17-2023 Glucose [Mass/Vol] 232 mg/dL High 74 - 99 mg/dL [facility] Interpretation and review of laboratory results Abnormal [facility] Glucose [Mass/Vol] 232 mg/dL High 74-99 [facility] Comment on above: Performed By: #### 3 016-3 #### PATRICIA NAVARRETE ([id number]) [facility] ([facility]) [address] [place] [address] Glucose [Mass/Vol] 257 mg/dL High 74 - 99 mg/dL [facility] Interpretation and review of laboratory results Abnormal [facility] Glucose [Mass/Vol] 257 mg/dL High 74-99 [facility] Comment on above: Result Comment: RN/M D NOTIFIED Performed By: #### 3 016-3 #### PATRICIA NAVARRETE ([id number]) [facility] ([facility]) [address] [place] [address] Glucose [Mass/Vol] 180 mg/dL High 74 - 99 mg/dL [facility] Interpretation and review of laboratory results Abnormal [facility] Glucose [Mass/Vol] 180 mg/dL High 74-99 [facility] Comment on above: Performed By: #### 3 016-3 #### PATRICIA NAVARRETE ([id number]) [facility] ([facility]) [address] [place] [address] Magnesiumon 09-17-2023 Magnesium [Mass/Vol] 1.80 mg/dL 1.60 - 2.40 mg/dL [facility] Magnesium [Mass/Vol] 1.80 mg/dL Normal 1.60-2.40 [facility] Comment on above: Performed By: #### V ERAB #### PATRICIA NAVARRETE ([id number]) [facility] ([facility]) [address] [place] [id number] Magnesium [Mass/Vol]on 09-17 Interpretation and review of laboratory results Normal [facility] No Panel Informationon 09-17 [facility] Blood Expiration Date October 06, 2023 23:59 EST [facility] Dispense Status RE [facility] PRODUCT BLOOD TYPE 9500 [facility] PRODUCT CODE [id number] [facility] Unit ABO O [facility] Unit RH Negative [facility] UNIT VOLUME 350 [facility] XM INTEP COMP [facility] Prepare RBC: 2 Unitson 09-17 Unit Number [id number] [facility] Unit Number [id number] [facility] Renal function 2000 panelon 09-17-2023 Albumin BCP dye [Mass/Vol] 3.2 g/dL Low 3.4 - 5.0 g/dL [facility] Anion gap [Moles/Vol] 13 mmol/L 10 - 2 0 mmol/L [facility] Calcium [Mass/Vol] 8.8 mg/dL 8.6 - 10. 3 mg/dL [facility] Chloride [Moles/Vol] 98 mmol/L 98 - 10 7 mmol/L [facility] CO2 [Moles/Vol] 29 mmol/L 21 - 32 mmol/L [facility] Creatinine [Mass/Vol] 1.68 mg/dL High 0.50 - 1.30 mg/dL [facility] GFR/1.73 sq M.predicted among non-blacks MDRD (S/P/Bld) [Vol rate/Area] 42 mL/min/{1.73_m2} Low - PINF [facility] Glucose [Mass/Vol] 222 mg/dL High 74 - 99 mg/dL [facility] Interpretation and review of laboratory results Abnormal [facility] Phosphate [Mass/Vol] 3.5 mg/dL 2.5 - 4 .9 mg/dL [facility] Potassium [Moles/Vol] 4.0 mmol/L 3.5 - 5.3 mmol/L [facility] Sodium [Moles/Vol] 136 mmol/L 136 - 145 mmol/L [facility] Urea nitrogen [Mass/Vol] 47 mg/dL High 6 - 23 mg/dL [facility] Albumin BCP dye [Mass/Vol] 3.2 g/dL Low 3.4-5.0 [facility] Comment on above: Performed By: #### V ERAB #### PATRICIA NAVARRETE ([id number]) [facility] ([facility]) [address] [place] [address] [place] Anion gap [Moles/Vol] 13 mmol/L Normal 10-20 [facility] Comment on above: Performed By: #### V ERAB #### PATRICIA NAVARRETE ([id number]) [facility] ([facility] [address] [place] [address] [place] Calcium [Mass/Vol] 8.8 mg/dL Normal 8.6-10.3 [facility] Comment on above: Performed By: #### V ERAB #### PATRICIA NAVARRETE ([id number]) [facility] ([facility]) [address] [place] [address] [place] Chloride [Moles/Vol] 98 mmol/L Normal 98-107 [facility] Comment on above: Performed By: #### V ERAB #### PATRICIA NAVARRETE ([id number]) [facility] ([facility]) [address] [place] [address] [place] CO2 [Moles/Vol] 29 mmol/L Normal 21-[address] [facility] Comment on above: Performed By: #### V ERAB #### PATRICIA NAVARRETE ([id number]) [facility] ([facility]) [address] [place] [address] [place] Creatinine [Mass/Vol] 1.68 mg/dL High 0.50-1.30 [facility] Comment on above: Performed By: #### V ERAB #### PATRICIA NAVARRETE ([id number]) [facility] ([facility]) [address] [facility] [place] [address] [place] Glomerular filtration rate/1.73 sq M.predicted 42 mL/min/1.73m*2 Low >60 [facility] Comment on above: Result Comment: Calc ulations of estimated GFR are performed using the 2020 CKD-EPI Study Refit equation without the race variable for the IDMS-Traceable creatinine methods. https://jasn.asnjournals.org/content//ASN.212076 1109 Performed By: #### Polly ERAB #### PATRICIA NAVARRETE ([id number]) [facility] ([facility]) [address] [place] [address] [place] Glucose [Mass/Vol] 222 mg/dL High 74-99 [facility] Comment on above: Performed By: #### Polly ERAB #### PATRICIA NAVARRETE ([id number]) [facility] ([facility]) [address] [place] [address] [place] Phosphate [Mass/Vol] 3.5 mg/dL Normal 2.5-4.9 [facility] Comment on above: Result Comment: The performance characteristics of phosphorus testing in heparinized plasma have been validated by the individual laboratory site where testing is performed. Testing on heparinized plasma is not approved by the FDA; however, such approval is not necessary. Performed By: #### V ERAB #### PATRICIA NAVARREET ([id number]) [facility] ([facility]) [address] [place] [address] [place] Potassium [Moles/Vol] 4.0 mmol/L Normal 3.5-5.3 [facility] Comment on above: Performed By: #### V ERAB #### PATRICIA MILLARDFRI ([id number]) [facility] ([facility]) [address] [place] [address] [place] Sodium [Moles/Vol] 136 mmol/L Normal 136-145 [facility] Comment on above: Performed By: #### V ERAB #### PATRICIA MILLARDFRI ([id number]) [facility] ([facility]) [address] [place] [address] [place] Urea nitrogen [Mass/Vol] 47 mg/dL High 6-23 [facility] Comment on above: Performed By: #### V ERAB #### PATRICIA MILLARDFRI ([id number]) [facility] ([facility]) [address] [place] [address] [place] XR CHEST 1 VIEWon 09-17-2023 XR CHEST 1 VIEW Interpreted By: Jermain St, STUDY: XR CHEST 1 VIEW; 09/17/2023 5:25 am INDICATION: Signs/Symptoms:S/p CABG. COMPARISON: 09/16/2023 ACCESSION NUMBER(S): [id number] ORDERING CLINICIAN: MARY GARCIA FINDINGS: CARDIOMEDIASTINAL SILHOUETTE AND VASCULATURE: Cardiac size: Mild cardiomegaly, status post median sternotomy. Aortic shadow: Within normal limits. Mediastinal contours: Within normal limits. Pulmonary vasculature: The central vasculature is unremarkable LUNGS: Right infrahilar and left basilar atelectasis appears relatively stable. The lungs otherwise are clear. ABDOMEN AND OTHER FINDINGS: No remarkable upper abdominal findings. BONES: No acute osseous changes. IMPRESSION: 1. No significant change of atelectasis. Signed by: Jermain Philip 09/17/2023 8:22 AM Dictation workstation: [id number] Normal [facility] XR Chest Single viewon 09-17 [facility] MMODAL [facility] MMODAL [facility] Work Phone: [facility] Work Phone: Radiology Study observation (narrative) [facility] Work Phone: CBC W Auto Differential pane l (Bld)on 09-16-2023 Basophils (Bld) [#/Vol] 0.01 10*3/uL [facility] Basophils/100 WBC (Bld) 0.1 % 0.0 - 2.0 % [facility] Eosinophils (Bld) [#/Vol] 0.02 10*3/uL [facility] Eosinophils/100 WBC (Bld) 0.2 % 0.0 - 6.0 % [facility] Erythrocyte distribution width (RBC) [Ratio] 13.9 % 11.5 - 14.5 % [facility] Hematocrit (Bld) [Volume fraction] 27.1 % Low 41.0 - 52.0 % [facility] Hemoglobin (Bld) [Mass/Vol] 8.9 g/dL Low 13.5 - 17.5 g/dL [facility] Immature granulocytes (Bld) [#/Vol] 0.11 10*3/uL [facility] Immature granulocytes/100 WBC (Bld) 1.0 % High 0.0 - 0.9 % [facility] Interpretation and review of laboratory results Abnormal [facility] Lymphocytes (Bld) [#/Vol] 0.68 10*3/uL Low [facility] Lymphocytes/100 WBC (Bld) 6.4 % 13.0 - 44.0 % [facility] MCH (RBC) [Entitic mass] 34.5 pg High 26.0 - 34.0 pg [facility] MCHC (RBC) [Mass/Vol] 32.8 g/dL 32.0 - 36.0 g/dL [facility] MCV (RBC) [Entitic vol] 105 fL High 80 - 100 fL [facility] Monocytes (Bld) [#/Vol] 0.85 10*3/uL [facility] Monocytes/100 WBC (Bld) 8.0 % 2.0 - 10.0 % [facility] Neutrophils (Bld) [#/Vol] 8.92 10*3/uL [facility] Neutrophils/100 WBC (Bld) 84.3 % 40.0 - 80.0 % [facility] Nucleated RBC/100 WBC (Bld) [Ratio] 0.0 % [facility] Platelets (Bld) [#/Vol] 142 10*3/uL Low [facility] RBC (Bld) [#/Vol] 2.58 10*6/uL [facility] WBC (Bld) [#/Vol] 10.6 10*3/uL [facility] Basophils (Bld) [#/Vol] 0.01 x10*3/uL Normal 0.00-0.10 [facility] Comment on above: Performed By: #### 2 4323-8 #### PATRICIA NAVARRETE ([id number]) [facility] ([facility]) [address] [place] [address] Basophils/100 WBC (Bld) 0.1 % Normal 0.0-2.0 [facility] Comment on above: Performed By: #### 2 4323-8 #### PATRICIA NAVARRETE ([id number]) [facility] ([facility]) [address] [place] [address] Eosinophils (Bld) [#/Vol] 0.02 x10*3/uL Normal 0.00-0.40 [facility] Comment on above: Performed By: #### 2 4323-8 #### PATRICIA NAVARRETE ([id number]) [facility] ([facility]) [address] [place] [address] Eosinophils/100 WBC (Bld) 0.2 % Normal 0.0-6.0 [facility] Comment on above: Performed By: #### 2 4323-8 #### PATRICIA NAVARRETE ([id number]) [facility] ([facility]) [address] [place] [address] Erythrocyte distribution width (RBC) [Ratio] 13.9 % Normal 11.5-14.5 [facility] Comment on above: Performed By: #### 2 4323-8 #### PATRICIA NAVARRETE ([id number]) [facility] ([facility]) [address] [place] [address] Hematocrit (Bld) [Volume fraction] 27.1 % Low 41.0-52.0 [facility] Comment on above: Performed By: #### 2 4323-8 #### PATRICIA NAVARRETE ([id number]) [facility] ([facility]) [address] [place] [address] Hemoglobin (Bld) [Mass/Vol] 8.9 g/dL Low 13.5-17.5 [facility] Comment on above: Performed By: #### 2 4323-8 #### PATRICIA NAVARRETE ([id number]) [facility] ([facility]) [address] [place] [address] Immature granulocytes (Bld) [#/Vol] 0.11 x10*3/uL Normal 0.00-0.50 [facility] Comment on above: Performed By: #### 2 4323-8 #### PATRICIA NAVARRETE ([id number]) [facility] ([facility]) [address] [place] [address] Immature granulocytes/100 WBC (Bld) 1.0 % High 0.0-0.9 [facility] Comment on above: Result Comment: Symone ture Granulocyte Count (IG) includes promyelocytes, myelocytes and metamyelocytes but does not include bands. Percent differential counts (%) should be interpreted in the context of the absolute cell counts (cells/UL). Performed By: #### 2 4323-8 #### PATRICIA NAVARRETE ([id number]) [facility] ([facility]) [address] [place] [address] Lymphocytes (Bld) [#/Vol] 0.68 x10*3/uL Low 0.80-3.00 [facility] Comment on above: Performed By: #### 2 4323-8 #### PATRICIA NAVARRETE ([id number]) [facility] ([facility]) [address] [place] [address] Lymphocytes/100 WBC (Bld) 6.4 % Normal 13.0-44.0 [facility] Comment on above: Performed By: #### 2 4323-8 #### PATRICIA NAVARRETE ([id number]) [facility] ([facility]) [address] [place] [address] MCH (RBC) [Entitic mass] 34.5 pg High 26.0-34.0 [facility] Comment on above: Performed By: #### 2 432-8 #### PATRICIA NAVARRETE ([id number]) [facility] ([facility]) [address] [place] [address] MCHC (RBC) [Mass/Vol] 32.8 g/dL Normal 32.0-36.0 [facility] Comment on above: Performed By: #### 2 432-8 #### PATRICIA NAVARRETE ([id number]) [facility] ([facility]) [address] [place] [address] MCV (RBC) [Entitic vol] 105 fL High 80-100 [facility] Comment on above: Performed By: #### 2 4323-8 #### PATRICIA NAVARRETE ([id number]) [facility] ([facility]) [address] [place] [address] Monocytes (Bld) [#/Vol] 0.85 x10*3/uL High 0.05-0.80 [facility] Comment on above: Performed By: #### 2 4323-8 #### PATRICIA NAVARRETE ([id number]) [facility] ([facility]) [address] [place] [address] Monocytes/100 WBC (Bld) 8.0 % Normal 2.0-10.0 [facility] Comment on above: Performed By: #### 2 4323-8 #### PATRICIA NAVARRETE ([id number]) [facility] ([facility]) [address] [place] [address] Neutrophils (Bld) [#/Vol] 8.92 x10*3/uL High 1.60-5.50 [facility] Comment on above: Result Comment: Perc ent differential counts (%) should be interpreted in the context of the absolute cell counts (cells/uL). Performed By: #### 2 4323-8 #### PATRICIA NAVARRETE ([id number]) [facility] ([facility]) [address] [place] [address] Neutrophils/100 WBC (Bld) 84.3 % Normal 40.0-80.0 [facility] Comment on above: Performed By: #### 2 4323-8 #### PATRICIA NAVARRETE ([id number]) [facility] ([facility]) [address] [place] [address] Nucleated RBC/100 WBC (Bld) [Ratio] 0.0 /100 WBCs Normal 0.0-0.0 [facility] Comment on above: Performed By: #### 2 4323-8 #### PATRICIA NAVARRETE ([id number]) [facility] ([facility]) [address] [place] [address] Platelets (Bld) [#/Vol] 142 x10*3/uL Low 150-450 [facility] Comment on above: Performed By: #### 2 4323-8 #### PATRICIA NAVARRETE ([id number]) [facility] ([facility]) [address] [place] [address] RBC (Bld) [#/Vol] 2.58 x10*6/uL Low 4.50-5.90 [facility] Comment on above: Performed By: #### 2 4323-8 #### PATRICIA NAVARRETE ([id number]) [facility] ([facility]) [address] [place] [address] WBC (Bld) [#/Vol] 10.6 x10*3/uL Normal 4.4-11.3 [facility] Comment on above: Performed By: #### 2 4323-8 #### PATRICIA NAVARRETE ([id number]) [facility] ([facility]) [address] [place] [address] Glucose Test strip manual (B ld) [Mass/Vol]on 09-16-2023 Glucose [Mass/Vol] 213 mg/dL High 74 - 99 mg/dL [facility] Interpretation and review of laboratory results Abnormal [facility] Glucose [Mass/Vol] 213 mg/dL High 74-99 [facility] Comment on above: Performed By: #### V ERAB #### PATRICIA NAVARRETE ([id number]) [facility] ([facility]) [address] [place] [address] [place] Glucose [Mass/Vol] 212 mg/dL High 74 - 99 mg/dL [facility] Interpretation and review of laboratory results Abnormal [facility] Glucose [Mass/Vol] 212 mg/dL High 74-99 [facility] Comment on above: Performed By: #### V ERAB #### PATRICIA NAVARRETE ([id number]) [facility] ([facility]) [address] [place] [address] [place] Glucose [Mass/Vol] 174 mg/dL High 74 - 99 mg/dL [facility] Interpretation and review of laboratory results Abnormal [facility] Glucose [Mass/Vol] 174 mg/dL High 74-99 [facility] Comment on above: Performed By: #### V ERAB #### PATRICIA NAVARRETE ([id number]) [facility] ([facility]) [address] [place] [address] [place] Glucose [Mass/Vol] 195 mg/dL High 74 - 99 mg/dL [facility] Interpretation and review of laboratory results Abnormal [facility] Glucose [Mass/Vol] 195 mg/dL High 74-99 [facility] Comment on above: Performed By: #### V ERAB #### PATRICIA NAVARRETE ([id number]) [facility] ([facility]) [address] [place] [address] [place] Glucose [Mass/Vol] 182 mg/dL High 74 - 99 mg/dL [facility] Interpretation and review of laboratory results Abnormal [facility] Glucose [Mass/Vol] 182 mg/dL High 74-99 [facility] Comment on above: Performed By: #### 2 4323-8 #### PATRICIA NAVARRETE ([id number]) [facility] ([facility]) [address] [place] [address] Magnesiumon 09-16-2023 Magnesium [Mass/Vol] 1.72 mg/dL 1.60 - 2.40 mg/dL [facility] Magnesium [Mass/Vol] 1.72 mg/dL Normal 1.60-2.40 [facility] Comment on above: Performed By: #### V ERAB #### PATRICIA NAVARRETE ([id number]) [facility] ([facility]) [address] [place] [address] Magnesium [Mass/Vol]on 09-16 Interpretation and review of laboratory results Normal [facility] No Panel Informationon 09-16 [facility] Renal function 2000 panelon 09-16-2023 Albumin BCP dye [Mass/Vol] 3.3 g/dL Low 3.4 - 5.0 g/dL [facility] Anion gap [Moles/Vol] 11 mmol/L 10 - 2 0 mmol/L [facility] Calcium [Mass/Vol] 8.8 mg/dL 8.6 - 10. 3 mg/dL [facility] Chloride [Moles/Vol] 99 mmol/L 98 - 10 7 mmol/L [facility] CO2 [Moles/Vol] 30 mmol/L 21 - 32 mmol/L [facility] Creatinine [Mass/Vol] 1.70 mg/dL High 0.50 - 1.30 mg/dL [facility] GFR/1.73 sq M.predicted among non-blacks MDRD (S/P/Bld) [Vol rate/Area] 41 mL/min/{1.73_m2} Low - PINF [facility] Glucose [Mass/Vol] 183 mg/dL High 74 - 99 mg/dL [facility] Interpretation and review of laboratory results Abnormal [facility] Phosphate [Mass/Vol] 3.2 mg/dL 2.5 - 4 .9 mg/dL [facility] Potassium [Moles/Vol] 4.2 mmol/L 3.5 - 5.3 mmol/L [facility] Sodium [Moles/Vol] 136 mmol/L 136 - 145 mmol/L [facility] Urea nitrogen [Mass/Vol] 39 mg/dL High 6 - 23 mg/dL [facility] Albumin BCP dye [Mass/Vol] 3.3 g/dL Low 3.4-5.0 [facility] Comment on above: Performed By: #### V ERAB #### PATRICIA NAVARRETE ([id number]) [facility] ([facility]) [address] [facility] [address] [place] Anion gap [Moles/Vol] 11 mmol/L Normal 10-20 [facility] Comment on above: Performed By: #### V ERAB #### PATRICIA NAVARRETE ([id number]) [facility] ([facility]) [address] [facility] [address] [place] Calcium [Mass/Vol] 8.8 mg/dL Normal 8.6-10.3 [facility] Comment on above: Performed By: #### V ERAB #### PATRICIA NAVARRETE ([id number]) [facility] ([facility]) [address] [place] [address] [place] Chloride [Moles/Vol] 99 mmol/L Normal 98-107 [facility] Comment on above: Performed By: #### V ERAB #### PATRICIA NAVARRETE ([id number]) [facility] ([facility]) [address] [place] [address] [place] CO2 [Moles/Vol] 30 mmol/L Normal 21-[address] [facility] Comment on above: Performed By: #### V ERAB #### PATRICIA NAVARRETE ([id number]) [facility] ([facility]) [address] [place] [address] [place] Creatinine [Mass/Vol] 1.70 mg/dL High 0.50-1.30 [facility] Comment on above: Performed By: #### V ERAB #### PATRICIA NAVARRETE ([id number]) [facility] ([facility] [address] [place] [address] [place] Glomerular filtration rate/1.73 sq M.predicted 41 mL/min/1.73m*2 Low >60 [facility] Comment on above: Result Comment: Calc ulations of estimated GFR are performed using the 2020 CKD-EPI Study Refit equation without the race variable for the IDMS-Traceable creatinine methods. https://jasn.asnjournals.org/content/early//ASN.668414 1880 Performed By: #### V ERAB #### PATRICIA NVAARRETE ([id number]) [facility] ([facility] [address] [place] [address] [place] Glucose [Mass/Vol] 183 mg/dL High 74-99 [facility] Comment on above: Performed By: #### V ERAB #### PATRICIA NAVARRETE ([id number]) [facility] ([facility] [address] [place] [address] [place] Phosphate [Mass/Vol] 3.2 mg/dL Normal 2.5-4.9 [facility] Comment on above: Result Comment: The performance characteristics of phosphorus testing in heparinized plasma have been validated by the individual laboratory site where testing is performed. Testing on heparinized plasma is not approved by the FDA; however, such approval is not necessary. Performed By: #### V ERAB #### PATRICIA NAVARRETE ([id number]) [facility] ([facility] [address] [place] [address] [place] Potassium [Moles/Vol] 4.2 mmol/L Normal 3.5-5.3 [facility] Comment on above: Performed By: #### V ERAB #### PATRICIA NAVARRETE ([id number]) [facility] ([facility] [address] [place] [address] [place] Sodium [Moles/Vol] 136 mmol/L Normal 136-145 [facility] Comment on above: Performed By: #### V ERAB #### PATRICIA NAVARRETE ([id number]) [facility] ([facility]) [address] [place] [address] [place] Urea nitrogen [Mass/Vol] 39 mg/dL High 6-23 [facility] Comment on above: Performed By: #### V ERAB #### PATRICIA LANDON ([id number]) [facility] ([facility]) [address] [place] [address] [place] XR CHEST 1 VIEWon 09-16-2023 XR CHEST 1 VIEW Interpreted By: Jermain St, STUDY: XR CHEST 1 VIEW; 09/16/2023 5:55 am INDICATION: Signs/Symptoms:S/p CABG. COMPARISON: 09/15/2023 ACCESSION NUMBER(S): [id number] ORDERING CLINICIAN: MARY GARCIA FINDINGS: CARDIOMEDIASTINAL SILHOUETTE AND VASCULATURE: Cardiac size: Mild cardiomegaly considering a shallow inspiration, status post median sternotomy. Aortic shadow: Within normal limits. Mediastinal contours: Within normal limits. Pulmonary vasculature: The central vasculature is unremarkable LUNGS: Bilateral chest tubes have been removed without pneumothorax. There has been improvement of left basilar atelectasis. Persistent band of atelectasis at the right lower lung. ABDOMEN AND OTHER FINDINGS: No remarkable upper abdominal findings. BONES: No acute osseous changes. IMPRESSION: 1. Satisfactory postoperative course. Signed by: Jermain Philip 09/16/2023 8:30 AM Dictation workstation: [id number] Normal [facility] XR Chest Single viewon 09-16 [facility] MMODAL [facility] MMODAL [facility] Work Phone: [facility] Work Phone: Radiology Study observation (narrative) [facility] Work Phone: Anesthesia Intraoperative Tr ansesophageal Echocardiogramon 09-15-2023 SYNGO [facility] Work Phone: [facility] Work Phone: CBC panel Auto (Bld)on 09-15 Erythrocyte distribution width (RBC) [Ratio] 13.7 % 11.5 - 14.5 % [facility] Hematocrit (Bld) [Volume fraction] 28.8 % Low 41.0 - 52.0 % [facility] Hemoglobin (Bld) [Mass/Vol] 9.5 g/dL Low 13.5 - 17.5 g/dL [facility] Interpretation and review of laboratory results Abnormal [facility] MCH (RBC) [Entitic mass] 34.3 pg High 26.0 - 34.0 pg [facility] MCHC (RBC) [Mass/Vol] 33.0 g/dL 32.0 - 36.0 g/dL [facility] MCV (RBC) [Entitic vol] 104 fL High 80 - 100 fL [facility] Nucleated RBC/100 WBC (Bld) [Ratio] 0.0 % [facility] Platelets (Bld) [#/Vol] 127 10*3/uL Low [facility] RBC (Bld) [#/Vol] 2.77 10*6/uL Low [facility] WBC (Bld) [#/Vol] 11.9 10*3/uL High [facility] Erythrocyte distribution width (RBC) [Ratio] 13.7 % Normal 11.5-14.5 [facility] Comment on above: Performed By: #### 3 255-7 #### PATRICIA NAVARRETE ([id number]) [facility] ([facility]) [address] [place] [address] Hematocrit (Bld) [Volume fraction] 28.8 % Low 41.0-52.0 [facility] Comment on above: Performed By: #### 3 255-7 #### PATRICIA NAVARRETE ([id number]) [facility] ([facility]) [address] [place] [address] Hemoglobin (Bld) [Mass/Vol] 9.5 g/dL Low 13.5-17.5 [facility] Comment on above: Performed By: #### 3 255-7 #### PATRICIA NAVARRETE ([id number]) [facility] ([facility]) [address] [place] [address] MCH (RBC) [Entitic mass] 34.3 pg High 26.0-34.0 [facility] Comment on above: Performed By: #### 3 255-7 #### PATRICIA NAVARRETE ([id number]) [facility] ([facility]) [address] [place] [address] MCHC (RBC) [Mass/Vol] 33.0 g/dL Normal 32.0-36.0 [facility] Comment on above: Performed By: #### 3 255-7 #### PATRICIA NAVARRETE ([id number]) [facility] ([facility]) [address] [place] [address] MCV (RBC) [Entitic vol] 104 fL High 80-100 [facility] Comment on above: Performed By: #### 3 255-7 #### PATRICIA NAVARRETE ([id number]) [facility] ([facility]) [address] [place] [address] Nucleated RBC/100 WBC (Bld) [Ratio] 0.0 /100 WBCs Normal 0.0-0.0 [facility] Comment on above: Performed By: #### 3 255-7 #### PATRICIA NAVARRETE ([id number]) [facility] ([facility]) [address] [place] [address] Platelets (Bld) [#/Vol] 127 x10*3/uL Low 150-450 [facility] Comment on above: Performed By: #### 3 255-7 #### PATRICIA NAVARRETE ([id number]) [facility] ([facility]) [address] [place] [address] RBC (Bld) [#/Vol] 2.77 x10*6/uL Low 4.50-5.90 [facility] Comment on above: Performed By: #### 3 255-7 #### PATRICIA NAVARRETE ([id number]) [facility] ([facility]) [address] [place] [address] WBC (Bld) [#/Vol] 11.9 x10*3/uL High 4.4-11.3 [facility] Comment on above: Performed By: #### 3 255-7 #### PATRICIA NAVARRETE ([id number]) [facility] ([facility]) [address] [place] [address] ECG 12-LEADon 09-15-2023 ECG 12-LEAD Ventricular Rate 98 Atrial Rate 98 P-R Interval 142 QRS Duration 126 Q-T Interval 366 QTC Calculation(Bazett) 467 P Fate 58 R Fate 87 T Fate -6 QRS Count 16 Q Onset 213 P Onset 142 P Offset 178 T Offset 396 QTC Fredericia 431 Diagnosis Sinus rhythm with Premature ventricular complexes or Fusion complexes Left bundle branch block Abnormal ECG No previous ECGs available Confirmed by Milo Velazquez ([id number]) on 09/22/2023 12:16:43 PM Normal [facility] Glucose Test strip manual (B ld) [Mass/Vol]on 09-15-2023 Glucose [Mass/Vol] 202 mg/dL High 74 - 99 mg/dL [facility] Interpretation and review of laboratory results Abnormal [facility] Glucose [Mass/Vol] 202 mg/dL High 74-99 [facility] Comment on above: Performed By: #### 2 4323-8 #### PATRICIA NAVARRETE ([id number]) [facility] ([facility]) [address] [place] [address] Glucose [Mass/Vol] 178 mg/dL High 74 - 99 mg/dL [facility] Interpretation and review of laboratory results Abnormal [facility] Glucose [Mass/Vol] 178 mg/dL High 74-99 [facility] Comment on above: Result Comment: RN/M D NOTIFIED Performed By: #### 2 4323-8 #### PATRICIA NAVARRETE ([id number]) [facility] ([facility]) [address] [place] [address] Glucose [Mass/Vol] 216 mg/dL High 74 - 99 mg/dL [facility] Interpretation and review of laboratory results Abnormal [facility] Glucose [Mass/Vol] 216 mg/dL High 74-99 [facility] Comment on above: Result Comment: RN/M D NOTIFIED Performed By: #### 2 4323-8 #### PATRICIA NAVARRETE ([id number]) [facility] ([facility]) [address] [place] [address] Glucose [Mass/Vol] 185 mg/dL High 74 - 99 mg/dL [facility] Interpretation and review of laboratory results Abnormal [facility] Glucose [Mass/Vol] 185 mg/dL High 74-99 [facility] Comment on above: Result Comment: RN/M D NOTIFIED Performed By: #### 2 4323-8 #### PATRICIA NAVARRETE ([id number]) [facility] ([facility]) [address] [place] [address] Glucose [Mass/Vol] 151 mg/dL High 74 - 99 mg/dL [facility] Interpretation and review of laboratory results Abnormal [facility] Glucose [Mass/Vol] 151 mg/dL High 74-99 [facility] Comment on above: Performed By: #### 3 255-7 #### PATRICIA NAVARRETE ([id number]) [facility] ([facility]) [address] [place] [address] Glucose [Mass/Vol] 183 mg/dL High 74 - 99 mg/dL [facility] Interpretation and review of laboratory results Abnormal [facility] Glucose [Mass/Vol] 183 mg/dL High 74-99 [facility] Comment on above: Performed By: #### 3 255-7 #### PATRICIA NAVARRETE ([id number]) [facility] ([facility]) [address] [place] [address] Magnesiumon 09-15-2023 Magnesium [Mass/Vol] 2.02 mg/dL 1.60 - 2.40 mg/dL [facility] Magnesium [Mass/Vol] 2.02 mg/dL Normal 1.60-2.40 [facility] Comment on above: Performed By: #### 2 4323-8 #### PATRICIA NAVARRETE ([id number]) [facility] ([facility]) [address] [place] [address] Magnesium [Mass/Vol]on 09-15 Interpretation and review of laboratory results Normal [facility] No Panel Informationon 09-15 [facility] Renal function 2000 panelon 09-15-2023 Albumin BCP dye [Mass/Vol] 3.4 g/dL 3.4 - 5.0 g/dL [facility] Anion gap [Moles/Vol] 9 mmol/L Low 10 - 2 0 mmol/L [facility] Calcium [Mass/Vol] 8.9 mg/dL 8.6 - 10. 3 mg/dL [facility] Chloride [Moles/Vol] 102 mmol/L 98 - 10 7 mmol/L [facility] CO2 [Moles/Vol] 29 mmol/L 21 - 32 mmol/L [facility] Creatinine [Mass/Vol] 1.78 mg/dL High 0.50 - 1.30 mg/dL [facility] GFR/1.73 sq M.predicted among non-blacks MDRD (S/P/Bld) [Vol rate/Area] 39 mL/min/{1.73_m2} Low - PINF [facility] Glucose [Mass/Vol] 140 mg/dL High 74 - 99 mg/dL [facility] Interpretation and review of laboratory results Abnormal [facility] Phosphate [Mass/Vol] 3.4 mg/dL 2.5 - 4 .9 mg/dL [facility] Potassium [Moles/Vol] 3.8 mmol/L 3.5 - 5.3 mmol/L [facility] Sodium [Moles/Vol] 136 mmol/L 136 - 145 mmol/L [facility] Urea nitrogen [Mass/Vol] 31 mg/dL High 6 - 23 mg/dL [facility] Albumin BCP dye [Mass/Vol] 3.4 g/dL Normal 3.4-5.0 [facility] Comment on above: Performed By: #### 2 4323-8 #### PATRICIA NAVARRETE ([id number]) [facility] ([facility]) [place] [address] Anion gap [Moles/Vol] 9 mmol/L Low 10-20 [facility] Comment on above: Performed By: #### 2 4323-8 #### PATRICIA NAVARRETE ([id number]) [facility] ([facility]) [address] [place] [address] Calcium [Mass/Vol] 8.9 mg/dL Normal 8.6-10.3 [facility] Comment on above: Performed By: #### 2 4323-8 #### PATRICIA NAVARRETE ([id number]) [facility] ([facility]) [address] [place] [address] Chloride [Moles/Vol] 102 mmol/L Normal 98-107 [facility] Comment on above: Performed By: #### 2 4323-8 #### PATRICIA NAVARRETE ([id number]) [facility] ([facility]) [address] [place] [address] CO2 [Moles/Vol] 29 mmol/L Normal 21-[address] [facility] Comment on above: Performed By: #### 2 4323-8 #### PATRICIA NAVARRETE ([id number]) [facility] ([facility]) [address] [place] [address] Creatinine [Mass/Vol] 1.78 mg/dL High 0.50-1.30 [facility] Comment on above: Performed By: #### 2 4323-8 #### PATRICIA NAVARRETE ([id number]) [facility] ([facility]) [address] [place] [address] Glomerular filtration rate/1.73 sq M.predicted 39 mL/min/1.73m*2 Low >60 [facility] Comment on above: Result Comment: Calc ulations of estimated GFR are performed using the 2020 CKD-EPI Study Refit equation without the race variable for the IDMS-Traceable creatinine methods. https://jasn.asnjournals.org/content/early/ASN.832479 9788 Performed By: #### 2 4323-8 #### PATRICIA NAVARRETE ([id number]) [facility] ([facility]) [address] [place] [address] Glucose [Mass/Vol] 140 mg/dL High 74-99 [facility] Comment on above: Performed By: #### 2 4323-8 #### PATRICIA NAVARRETE ([id number]) [facility] ([facility]) [address] [place] [address] Phosphate [Mass/Vol] 3.4 mg/dL Normal 2.5-4.9 [facility] Comment on above: Result Comment: The performance characteristics of phosphorus testing in heparinized plasma have been validated by the individual laboratory site where testing is performed. Testing on heparinized plasma is not approved by the FDA; however, such approval is not necessary. Performed By: #### 2 4323-8 #### PATRICIA NAVARRETE ([id number]) [facility] ([facility]) [address] [facility] [place] [address] Potassium [Moles/Vol] 3.8 mmol/L Normal 3.5-5.3 [facility] Comment on above: Performed By: #### 2 4323-8 #### PATRICIA NAVARRETE ([id number]) [facility] ([facility]) [address] [place] [address] Sodium [Moles/Vol] 136 mmol/L Normal 136-145 [facility] Comment on above: Performed By: #### 2 4323-8 #### PATRICIA NAVARRETE ([id number]) [facility] ([facility]) [address] [place] [address] Urea nitrogen [Mass/Vol] 31 mg/dL High 6-23 [facility] Comment on above: Performed By: #### 2 4323-8 #### PATRICIA NAVARRETE ([id number]) [facility] ([facility]) [address] [place] [address] XR CHEST 1 VIEWon 09-15-2023 XR CHEST 1 VIEW Interpreted By: Jermain St, STUDY: XR CHEST 1 VIEW; 09/15/2023 5:15 am INDICATION: Signs/Symptoms:S/p CABG. COMPARISON: 2023 ACCESSION NUMBER(S): [id number] ORDERING CLINICIAN: MARY GARCIA FINDINGS: CARDIOMEDIASTINAL SILHOUETTE AND VASCULATURE: Cardiac size: Mild cardiomegaly considering a somewhat shallow inspiration. Status post median sternotomy. Aortic shadow: Within normal limits. Mediastinal contours: Within normal limits. Pulmonary vasculature: The central vasculature is unremarkable LUNGS: Bilateral chest tubes are similar to the prior exam. Persistent left retrocardiac atelectasis appears stable. The lungs otherwise are clear. ABDOMEN AND OTHER FINDINGS: No remarkable upper abdominal findings. BONES: No acute osseous changes. IMPRESSION: 1. No significant change. Signed by: Jermain Philip 09/15/2023 10:17 AM Dictation workstation: [id number] Normal [facility] XR Chest Single viewon 09-15 U[facility] MMODAL U[facility] MMODAL [facility] Work Phone: [facility] Work Phone: Radiology Study observation (narrative) [facility] Work Phone: CBC panel Auto (Bld)on 09-14 Erythrocyte distribution width (RBC) [Ratio] 13.5 % 11.5 - 14.5 % [facility] Hematocrit (Bld) [Volume fraction] 31.9 % Low 41.0 - 52.0 % [facility] Hemoglobin (Bld) [Mass/Vol] 10.6 g/dL Low 13.5 - 17.5 g/dL [facility] Interpretation and review of laboratory results Abnormal [facility] MCH (RBC) [Entitic mass] 34.0 pg 26.0 - 34.0 pg [facility] MCHC (RBC) [Mass/Vol] 33.2 g/dL 32.0 - 36.0 g/dL [facility] MCV (RBC) [Entitic vol] 102 fL High 80 - 100 fL [facility] Nucleated RBC/100 WBC (Bld) [Ratio] 0.0 % [facility] Platelets (Bld) [#/Vol] 153 10*3/uL [facility] RBC (Bld) [#/Vol] 3.12 10*6/uL Low [facility] WBC (Bld) [#/Vol] 11.7 10*3/uL High [facility] Erythrocyte distribution width (RBC) [Ratio] 13.5 % Normal 11.5-14.5 [facility] Comment on above: Performed By: #### 3 4529-8 #### PATRICIA NAVARRETE ([id number]) [facility] ([facility]) [address] [place] [address] Hematocrit (Bld) [Volume fraction] 31.9 % Low 41.0-52.0 [facility] Comment on above: Performed By: #### 3 4529-8 #### PATRICIA NAVARRETE ([id number]) [facility] ([facility]) [address] [place] [address] Hemoglobin (Bld) [Mass/Vol] 10.6 g/dL Low 13.5-17.5 [facility] Comment on above: Performed By: #### 3 4529-8 #### PATRICIA NAVARRETE ([id number]) [facility] ([facility]) [address] [place] [address] MCH (RBC) [Entitic mass] 34.0 pg Normal 26.0-34.0 [facility] Comment on above: Performed By: #### 3 4529-8 #### PATRICIA NAVARRETE ([id number]) [facility] ([facility]) [address] [place] [address] MCHC (RBC) [Mass/Vol] 33.2 g/dL Normal 32.0-36.0 [facility] Comment on above: Performed By: #### 3 4529-8 #### PATRICIA NAVARRETE ([id number]) [facility] ([facility]) [address] [place] [address] MCV (RBC) [Entitic vol] 102 fL High 80-100 [facility] Comment on above: Performed By: #### 3 4529-8 #### PATRICIA NAVARRETE ([id number]) [facility] ([facility]) [address] [place] [address] Nucleated RBC/100 WBC (Bld) [Ratio] 0.0 /100 WBCs Normal 0.0-0.0 [facility] Comment on above: Performed By: #### 3 4529-8 #### PATRICIA NAVARRETE ([id number]) [facility] ([facility]) [address] [place] [address] Platelets (Bld) [#/Vol] 153 x10*3/uL Normal 150-450 [facility] Comment on above: Performed By: #### 3 4529-8 #### PATRICIA NAVARRETE ([id number]) [facility] ([facility]) [address] [place] [address] RBC (Bld) [#/Vol] 3.12 x10*6/uL Low 4.50-5.90 [facility] Comment on above: Performed By: #### 3 4529-8 #### PATRICIA NAVARRETE ([id number]) [facility] ([facility]) [address] [place] [address] WBC (Bld) [#/Vol] 11.7 x10*3/uL High 4.4-11.3 [facility] Comment on above: Performed By: #### 3 4529-8 #### PATRICIA NAVARRETE ([id number]) [facility] ([facility]) [address] [place] [address] Calcium, Ionizedon Calcium.ionized (Bld) [Moles/Vol] 1.22 mmol/L 1.1 - 1.33 mmol/L [facility] Calcium.ionizedon 2023 Calcium.ionized (Bld) [Moles/Vol] 1.22 mmol/L Normal 1.1-1.33 [facility] Comment on above: Result Comment: The performance characteristics of ionized calcium tested in heparinized plasma or serum have been validated by the individual laboratory site where testing is performed. Testing on heparinized plasma or serum is not approved by the FDA; however, such approval is not necessary. Performed By: #### 3 4529-8 #### PATRICIA NAVARRETE ([id number]) [facility] ([facility]) [address] [place] [address] Calcium.ionized (Bld) [Moles /Vol]on 2023 Interpretation and review of laboratory results Normal [facility] ECG 12-LEADon 2023 ECG 12-LEAD Systolic BP 112 Diastolic BP 54 Ventricular Rate 71 Atrial Rate 71 P-R Interval 156 QRS Duration 134 Q-T Interval 404 QTC Calculation(Bazett) 439 P Fate 37 R Fate 68 T Fate 2 QRS Count 12 Q Onset 214 P Onset 136 P Offset 173 T Offset 416 QTC Fredericia 427 Diagnosis Normal sinus rhythm Nonspecific intraventricular block Cannot rule out Septal infarct , age undetermined Abnormal ECG No previous ECGs available Confirmed by Frank Kumar ([id number]) on 09/19/2023 1:45:14 PM Normal [facility] Gas and Carbon monoxide and Electrolytes panel (BldA)Ordered By: Ananya Granado on 2023 Anion gap 4 (BldA) [Moles/Vol] 8 Low [facility] Base excess Calc (Bld) [Moles/Vol] -0.4000 mmol/L -2.0 - 3.0 mmol/L [facility] Calcium.ionized (BldA) [Moles/Vol] 1.19 mmol/L 1.10 - 1.33 mmol/L [facility] Chloride (BldA) [Moles/Vol] 109 mmol/L High 98 - 107 mmol/L [facility] CO2 (Bld) [Partial pressure] 42 mm[Hg] [facility] Flow 4.0 LPM [facility] Glucose [Mass/Vol] 164 mg/dL High 74 - 99 mg/dL [facility] HCO3 (Bld) [Moles/Vol] 24.8 mmol/L 22.0 - 26.0 mmol/L [facility] Hematocrit Est (Bld) [Volume fraction] 30.0 % Low 41.0 - 52.0 % [facility] Hemoglobin (Bld) [Mass/Vol] 10.0 g/dL Low 13.5 - 17.5 g/dL [facility] Inhaled oxygen concentration 36 % [facility] Interpretation and review of laboratory results Abnormal [facility] Lactate (BldA) [Moles/Vol] 1.3 mmol/L 0.4 - 2.0 mmol/L [facility] Oxygen (Bld) [Partial pressure] 86 mm[Hg] [facility] Oxyhemoglobin (BldA) [Mass fraction] 95.2 % 94.0 - 98.0 % [facility] pH (Bld) 7.38 [pH] 7.38 - 7.42 pH [facility] Potassium (BldA) [Moles/Vol] 4.1 mmol/L 3.5 - 5.3 mmol/L [facility] Sodium (BldA) [Moles/Vol] 138 mmol/L 136 - 145 mmol/L [facility] Specimen drawn from Nom Arterial Line [facility] Gas and Carbon monoxide and Electrolytes panel (BldA)on 2023 Anion gap 4 (BldA) [Moles/Vol] 8 mmo/L Low 10-25 [facility] Comment on above: Performed By: #### 3 255-7 #### PATRICIA NAVARRETE ([id number]) [facility] ([facility]) [address] [place] [address] Base excess Calc (Bld) [Moles/Vol] -0.4000 mmol/L Normal -2.0-3.0 [facility] Comment on above: Performed By: #### 3 255-7 #### PATRICIA NAVARRETE ([id number]) [facility] ([facility]) [address] [place] [address] Calcium.ionized (BldA) [Moles/Vol] 1.19 mmol/L Normal 1.10-1.33 [facility] Comment on above: Performed By: #### 3 255-7 #### PATRICIA NAVARRETE ([id number]) [facility] ([facility]) [address] [place] [address] Chloride (BldA) [Moles/Vol] 109 mmol/L High 98-107 [facility] Comment on above: Performed By: #### 3 255-7 #### PATRICIA NAVARRETE ([id number]) [facility] ([facility]) [address] [place] [address] CO2 (Bld) [Partial pressure] 42 mm Hg Normal 38-42 [facility] Comment on above: Performed By: #### 3 255-7 #### PATRICIA NAVARRETE ([id number]) [facility] ([facility]) [address] [place] [address] FLOW 4.0 LPM Normal [facility] Comment on above: Performed By: #### 3 255-7 #### PATRICIA NAVARRETE ([id number]) [facility] ([facility]) [address] [place] [address] Glucose [Mass/Vol] 164 mg/dL High 74-99 [facility] Comment on above: Performed By: #### 3 255-7 #### PATRICIA NAVARRETE ([id number]) [facility] ([facility]) [address] [place] [address] HCO3 (Bld) [Moles/Vol] 24.8 mmol/L Normal 22.0-26.0 [facility] Comment on above: Performed By: #### 3 255-7 #### PATRICIA NAVARRETE ([id number]) [facility] ([facility]) [address] [place] [address] Hematocrit Est (Bld) [Volume fraction] 30.0 % Low 41.0-52.0 [facility] Comment on above: Performed By: #### 3 255-7 #### PATRICIA NAVARRETE ([id number]) [facility] ([facility]) [address] [place] [address] Hemoglobin (Bld) [Mass/Vol] 10.0 g/dL Low 13.5-17.5 [facility] Comment on above: Performed By: #### 3 255-7 #### PATRICIA NAVARRETE ([id number]) [facility] ([facility]) [address] [place] [address] Inhaled oxygen concentration 36 % Normal [facility] Comment on above: Performed By: #### 3 255-7 #### PATRICIA NAVARRETE ([id number]) [facility] ([facility]) [address] [place] [address] Lactate (BldA) [Moles/Vol] 1.3 mmol/L Normal 0.4-2.0 [facility] Comment on above: Performed By: #### 3 255-7 #### PATRICIA NAVARRETE ([id number]) [facility] ([facility]) [address] [place] [address] Oxygen (Bld) [Partial pressure] 86 mm Hg Normal 85-95 [facility] Comment on above: Performed By: #### 3 255-7 #### PATRICIA NAVARRETE ([id number]) [facility] ([facility]) [address] [place] [address] Oxyhemoglobin (BldA) [Mass fraction] 95.2 % Normal 94.0-98.0 [facility] Comment on above: Performed By: #### 3 255-7 #### PATRICIA NAVARRETE ([id number]) [facility] ([facility]) [address] [place] [address] pH (Bld) 7.38 [pH] Normal 7.38-7.42 [facility] Comment on above: Performed By: #### 3 255-7 #### PATRICIA NAVARRETE ([id number]) [facility] ([facility]) [address] [place] [address] Potassium (BldA) [Moles/Vol] 4.1 mmol/L Normal 3.5-5.3 [facility] Comment on above: Performed By: #### 3 255-7 #### PATRICIA NAVARRETE ([id number]) [facility] ([facility]) [address] [place] [address] Sodium (BldA) [Moles/Vol] 138 mmol/L Normal 136-145 [facility] Comment on above: Performed By: #### 3 255-7 #### PATRICIA NAVARRETE ([id number]) [facility] ([facility]) [address] [place] [address] Specimen drawn from Nom Arterial Line Normal [facility] Comment on above: Performed By: #### 3 255-7 #### PATRICIA NAVARRETE ([id number]) [facility] ([facility]) [address] [place] [address] Glucose Test strip manual (B ld) [Mass/Vol]on 2023 Glucose [Mass/Vol] 188 mg/dL High 74 - 99 mg/dL [facility] Interpretation and review of laboratory results Abnormal [facility] Glucose [Mass/Vol] 188 mg/dL High 74-99 [facility] Comment on above: Performed By: #### 3 255-7 #### PATRICIA NAVARRETE ([id number]) [facility] ([facility]) [address] [facility] [place] [address] Glucose [Mass/Vol] 205 mg/dL High 74 - 99 mg/dL [facility] Interpretation and review of laboratory results Abnormal [facility] Glucose [Mass/Vol] 205 mg/dL High 74-99 [facility] Comment on above: Performed By: #### 3 255-7 #### PATRICIA NAVARRETE ([id number]) [facility] ([facility]) [address] [place] [address] Glucose [Mass/Vol] 203 mg/dL High 74 - 99 mg/dL [facility] Interpretation and review of laboratory results Abnormal [facility] Glucose [Mass/Vol] 203 mg/dL High 74-99 [facility] Comment on above: Performed By: #### 3 255-7 #### PATRICIA NAVARRETE ([id number]) [facility] ([facility]) [address] [place] [address] Glucose [Mass/Vol] 175 mg/dL High 74 - 99 mg/dL [facility] Interpretation and review of laboratory results Abnormal [facility] Glucose [Mass/Vol] 175 mg/dL High 74-99 [facility] Comment on above: Performed By: #### 3 255-7 #### PATRICIA NAVARRETE ([id number]) [facility] ([facility]) [address] [place] [address] Glucose [Mass/Vol] 156 mg/dL High 74 - 99 mg/dL [facility] Interpretation and review of laboratory results Abnormal [facility] Glucose [Mass/Vol] 156 mg/dL High 74-99 [facility] Comment on above: Performed By: #### 3 4529-8 #### PATRICIA NAVARRETE ([id number]) [facility] ([facility]) [address] [place] [address] Glucose [Mass/Vol] 158 mg/dL High 74 - 99 mg/dL [facility] Interpretation and review of laboratory results Abnormal [facility] Glucose [Mass/Vol] 158 mg/dL High 74-99 [facility] Comment on above: Performed By: #### 3 4529-8 #### PATRICIA NAVARRETE ([id number]) [facility] ([facility]) [address] [place] [address] Green Topon 2023 Extra Tube Hold for add-ons. [facility] Magnesiumon 2023 Magnesium [Mass/Vol] 1.93 mg/dL 1.60 - 2.40 mg/dL [facility] Magnesium [Mass/Vol] 1.93 mg/dL Normal 1.60-2.40 [facility] Comment on above: Performed By: #### 3 4529-8 #### PATRICIA NAVARRETE ([id number]) [facility] ([facility]) [address] [place] [address] Magnesium [Mass/Vol]on 09-14 Interpretation and review of laboratory results Normal [facility] No Panel Informationon 09-14 [facility] Renal function 2000 panelon 2023 Albumin BCP dye [Mass/Vol] 3.6 g/dL 3.4 - 5.0 g/dL [facility] Anion gap [Moles/Vol] 12 mmol/L 10 - 2 0 mmol/L [facility] Calcium [Mass/Vol] 8.6 mg/dL 8.6 - 10. 3 mg/dL [facility] Chloride [Moles/Vol] 109 mmol/L High 98 - 10 7 mmol/L [facility] CO2 [Moles/Vol] 23 mmol/L 21 - 32 mmol/L [facility] Creatinine [Mass/Vol] 1.84 mg/dL High 0.50 - 1.30 mg/dL [facility] GFR/1.73 sq M.predicted among non-blacks MDRD (S/P/Bld) [Vol rate/Area] 38 mL/min/{1.73_m2} Low - PINF [facility] Glucose [Mass/Vol] 166 mg/dL High 74 - 99 mg/dL [facility] Interpretation and review of laboratory results Abnormal [facility] Phosphate [Mass/Vol] 4.5 mg/dL 2.5 - 4 .9 mg/dL [facility] Potassium [Moles/Vol] 4.4 mmol/L 3.5 - 5.3 mmol/L [facility] Sodium [Moles/Vol] 140 mmol/L 136 - 145 mmol/L [facility] Urea nitrogen [Mass/Vol] 25 mg/dL High 6 - 23 mg/dL [facility] Albumin BCP dye [Mass/Vol] 3.6 g/dL Normal 3.4-5.0 [facility] Comment on above: Performed By: #### 3 255-7 #### PATRICIA NAVARRETE ([id number]) [facility] ([facility]) [address] [place] [address] Anion gap [Moles/Vol] 12 mmol/L Normal 10-20 [facility] Comment on above: Performed By: #### 3 255-7 #### PATRICIA NAVARRETE ([id number]) [facility] ([facility]) [address] [facility] [place] [address] Calcium [Mass/Vol] 8.6 mg/dL Normal 8.6-10.3 [facility] Comment on above: Performed By: #### 3 255-7 #### PATRICIA NAVARRETE ([id number]) [facility] ([facility]) [address] [place] [address] Chloride [Moles/Vol] 109 mmol/L High 98-107 [facility] Comment on above: Performed By: #### 3 255-7 #### PATRICIA NAVARRETE ([id number]) [facility] ([facility]) [address] [place] [address] CO2 [Moles/Vol] 23 mmol/L Normal 21-[address] [facility] Comment on above: Performed By: #### 3 255-7 #### PATRICIA PILLAII ([id number]) [facility] ([facility]) [address] [place] [address] Creatinine [Mass/Vol] 1.84 mg/dL High 0.50-1.30 [facility] Comment on above: Performed By: #### 3 255-7 #### PATRICIA NAVARRETE ([id number]) [facility] ([facility]) [address] [place] [address] Glomerular filtration rate/1.73 sq M.predicted 38 mL/min/1.73m*2 Low >60 [facility] Comment on above: Result Comment: Calc ulations of estimated GFR are performed using the 2020 CKD-EPI Study Refit equation without the race variable for the IDMS-Traceable creatinine methods. https://jasn.asnjournals.org/content/early//ASN.520706 8786 Performed By: #### 3 255-7 #### PATRCIIA NAVARRETE ([id number]) [facility] ([facility]) [address] [place] [address] Glucose [Mass/Vol] 166 mg/dL High 74-99 [facility] Comment on above: Performed By: #### 3 255-7 #### PATRICIA NAVARRETE ([id number]) [facility] ([facility]) [address] [place] [address] Phosphate [Mass/Vol] 4.5 mg/dL Normal 2.5-4.9 [facility] Comment on above: Result Comment: The performance characteristics of phosphorus testing in heparinized plasma have been validated by the individual laboratory site where testing is performed. Testing on heparinized plasma is not approved by the FDA; however, such approval is not necessary. Performed By: #### 3 255-7 #### PATRICIA NAVARRETE ([id number]) [facility] ([facility]) [address] [place] [address] Potassium [Moles/Vol] 4.4 mmol/L Normal 3.5-5.3 [facility] Comment on above: Performed By: #### 3 255-7 #### PATRICIA NAVARRETE ([id number]) [facility] ([facility]) [address] [place] [address] Sodium [Moles/Vol] 140 mmol/L Normal 136-145 [facility] Comment on above: Performed By: #### 3 255-7 #### PATRICIA NAVARRETE ([id number]) [facility] ([facility]) [address] [place] [address] Urea nitrogen [Mass/Vol] 25 mg/dL High 6-23 [facility] Comment on above: Performed By: #### 3 255-7 #### PATRICIA NAVARRETE ([id number]) [facility] ([facility]) [address] [place] [address] XR CHEST 1 VIEWon 2023 XR CHEST 1 VIEW Interpreted By: Jermain St, STUDY: XR CHEST 1 VIEW; 2023 7:02 am INDICATION: Signs/Symptoms:S/p CABG. COMPARISON: 09/13/2023 ACCESSION NUMBER(S): [id number] ORDERING CLINICIAN: MARY GARCIA FINDINGS: CARDIOMEDIASTINAL SILHOUETTE AND VASCULATURE: Cardiac size: Within normal limits considering a shallow inspiration, status post median sternotomy. Aortic shadow: Within normal limits. Mediastinal contours: Within normal limits. Pulmonary vasculature: The central vasculature is unremarkable LUNGS: Improvement of interstitial prominence presumably from congestion. Persistent left retrocardiac atelectasis or infiltrate. Bilateral chest tubes remain, no pneumothorax. ABDOMEN AND OTHER FINDINGS: No remarkable upper abdominal findings. BONES: No acute osseous changes. IMPRESSION: 1. Improvement or resolution of congestion. Persistent left retrocardiac atelectasis. Signed by: Jermain Philip 2023 7:42 AM Dictation workstation: [id number] Normal [facility] XR Chest Single viewon 09-14 UH MMODAL UH MMODAL [facility] Work Phone: [facility] Work Phone: Radiology Study observation (narrative) [facility] Work Phone: ANESTHESIA INTRAOPERATIVE TE Samuel 09-13-[address] MICHAEL 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 Complications encountered during procedure: Patient tolerated the procedure well without any apparent complications. Left Ventricle: The left ventricular systolic function is hyperdynamic, with an estimated ejection fraction of 60%. There are no regional wall motion abnormalities. The left ventricular cavity size is normal. The left ventricular septal wall thickness is mildly increased. Spectral Doppler shows an impaired relaxation pattern of left ventricular diastolic filling. Left Atrium: The left atrium is upper limits of normal in size. There is no evidence of a patent foramen ovale. There is a normal sized left atrial appendage, there is no thrombus visualized in the left atrial appendage and there is spontaneous contrast noted in the left atrial appendage. Right Ventricle: The right ventricle is upper limits of normal in size. There is normal right ventricular global systolic function. Right Atrium: The right atrium is upper limits of normal in size. Aortic Valve: The aortic valve appears structurally normal. There is evidence of mildly elevated transaortic gradients consistent with sclerosis of the aortic valve. There is trace to mild aortic valve regurgitation. Mitral Valve: The mitral valve is normal in structure. There is mild to moderate mitral valve regurgitation. Tricuspid Valve: The tricuspid valve is structurally normal. Tricuspid regurgitation was not assessed. Pulmonic Valve: The pulmonic valve is structurally normal. Pulmonic valve regurgitation was not assessed. Pericardium: Pericardial effusion was not assessed. Aorta: The aortic root is normal. There is no evidence of aortic dissection. The descending aorta has normal intimal thickness <2mm. CONCLUSIONS: 1. Left ventricular systolic function is hyperdynamic with a 60% estimated ejection fraction. 2. Spectral Doppler shows an impaired relaxation pattern of left ventricular diastolic filling. 3. Mild to moderate mitral valve regurgitation. 4. Aortic valve sclerosis. POST CARDIOPULMONARY BYPASS REPORT: Patient is being paced. LEVOPHED. Global LV function is normal. Global RV function is normal. There is trace aortic regurgitation. There is mild to moderate mitral regurgitation. No evidence of post aortic cannulation dissection. QUANTITATIVE DATA SUMMARY: [id number] Darius Galeas MD Electronically signed on 09/15/2023 at 11:55:42 AM Final Normal [facility] CBC panel Auto (Bld)on 09-13 Erythrocyte distribution width (RBC) [Ratio] 13.2 % 11.5 - 14.5 % [facility] Hematocrit (Bld) [Volume fraction] 32.2 % Low 41.0 - 52.0 % [facility] Hemoglobin (Bld) [Mass/Vol] 10.9 g/dL Low 13.5 - 17.5 g/dL [facility] Interpretation and review of laboratory results Abnormal [facility] MCH (RBC) [Entitic mass] 34.4 pg High 26.0 - 34.0 pg [facility] MCHC (RBC) [Mass/Vol] 33.9 g/dL 32.0 - 36.0 g/dL [facility] MCV (RBC) [Entitic vol] 102 fL High 80 - 100 fL [facility] Nucleated RBC/100 WBC (Bld) [Ratio] 0.0 % [facility] Platelets (Bld) [#/Vol] 123 10*3/uL Low [facility] RBC (Bld) [#/Vol] 3.17 10*6/uL Low [facility] WBC (Bld) [#/Vol] 13.8 10*3/uL High [facility] Erythrocyte distribution width (RBC) [Ratio] 13.2 % Normal 11.5-14.5 [facility] Comment on above: Order Comment: On ad pinky to ICU Performed By: #### 5 8410-2 #### PATRICIA NAVARRETE ([id number]) [facility] ([facility]) [address] [place] [address] Hematocrit (Bld) [Volume fraction] 32.2 % Low 41.0-52.0 [facility] Comment on above: Order Comment: On ad pinky to ICU Performed By: #### 5 8410-2 #### PATRICIA NAVARRETE ([id number]) [facility] ([facility]) [address] [place] [address] Hemoglobin (Bld) [Mass/Vol] 10.9 g/dL Low 13.5-17.5 [facility] Comment on above: Order Comment: On ad pinky to ICU Performed By: #### 5 8410-2 #### PATRICIA NAVARRETE ([id number]) [facility] ([facility]) [address] [place] [address] MCH (RBC) [Entitic mass] 34.4 pg High 26.0-34.0 [facility] Comment on above: Order Comment: On ad pinky to ICU Performed By: #### 5 8410-2 #### PATRICIA NAVARRETE ([id number]) [facility] ([facility]) [address] [place] [address] MCHC (RBC) [Mass/Vol] 33.9 g/dL Normal 32.0-36.0 [facility] Comment on above: Order Comment: On ad pinky to ICU Performed By: #### 5 8410-2 #### PATRICIA NAVARRETE ([id number]) [facility] ([facility]) [address] [place] [address] MCV (RBC) [Entitic vol] 102 fL High 80-100 [facility] Comment on above: Order Comment: On ad pinky to ICU Performed By: #### 5 8410-2 #### PATRICIA NAVARRETE ([id number]) [facility] ([facility]) [address] [place] [address] Nucleated RBC/100 WBC (Bld) [Ratio] 0.0 /100 WBCs Normal 0.0-0.0 [facility] Comment on above: Order Comment: On ad pinky to ICU Performed By: #### 5 8410-2 #### PATRICIA NAVARRETE ([id number]) [facility] ([facility]) [address] [place] [address] Platelets (Bld) [#/Vol] 123 x10*3/uL Low 150-450 [facility] Comment on above: Order Comment: On ad pinky to ICU Performed By: #### 5 8410-2 #### PATRICIA NAVARRETE ([id number]) [facility] ([facility]) [address] [place] [address] RBC (Bld) [#/Vol] 3.17 x10*6/uL Low 4.50-5.90 [facility] Comment on above: Order Comment: On ad pinky to ICU Performed By: #### 5 8410-2 #### PATRICIA NAVARRETE ([id number]) [facility] ([facility]) [address] [place] [address] WBC (Bld) [#/Vol] 13.8 x10*3/uL High 4.4-11.3 [facility] Comment on above: Order Comment: On ad pinky to ICU Performed By: #### 5 8410-2 #### PATRICIA NAVARRETE ([id number]) [facility] ([facility]) [address] [place] [address] Calcium, Ionizedon Calcium.ionized (Bld) [Moles/Vol] 1.27 mmol/L 1.1 - 1.33 mmol/L [facility] Calcium.ionizedon 09-13-2023 Calcium.ionized (Bld) [Moles/Vol] 1.27 mmol/L Normal 1.1-1.33 [facility] Comment on above: Order Comment: On ad pinky to ICU Result Comment: The performance characteristics of ionized calcium tested in heparinized plasma or serum have been validated by the individual laboratory site where testing is performed. Testing on heparinized plasma or serum is not approved by the FDA; however, such approval is not necessary. Performed By: #### 5 8410-2 #### PATRICIA NAVARRETE ([id number]) [facility] ([facility]) [address] [place] [address] Calcium.ionized (Bld) [Moles /Vol]on 09-13-2023 Interpretation and review of laboratory results Normal [facility] Carboxyhemoglobin (BldA) [Ma ss fraction]on 09-13-2023 Deoxyhemoglobin (BldA) [Mass fraction] 0.7 % 0.0 - 5.0 % [facility] Methemoglobin (BldA) [Mass fraction] 0.0 % 0.0 - 1.5 % [facility] Deoxyhemoglobin (BldA) [Mass fraction] 0.7 % Normal 0.0-5.0 [facility] Comment on above: Performed By: #### 5 8410-2 #### PATRICIA NAVARRETE ([id number]) [facility] ([facility]) [address] [place] [address] Methemoglobin (BldA) [Mass fraction] 0.0 % Normal 0.0-1.5 [facility] Comment on above: Performed By: #### 5 8410-2 #### PATRICIA NAVARRETE ([id number]) [facility] ([facility]) [address] [place] [address] Deoxyhemoglobin (BldA) [Mass fraction] 1.1 % 0.0 - 5.0 % [facility] Methemoglobin (BldA) [Mass fraction] 0.0 % 0.0 - 1.5 % [facility] Deoxyhemoglobin (BldA) [Mass fraction] 1.1 % Normal 0.0-5.0 [facility] Comment on above: Performed By: #### 2 4341-0 #### PATRICIA NAVARRETE ([id number]) [facility] ([facility]) [address] [place] [address] Methemoglobin (BldA) [Mass fraction] 0.0 % Normal 0.0-1.5 [facility] Comment on above: Performed By: #### 2 4341-0 #### PATRICIA NAVARRETE ([id number]) [facility] ([facility]) [address] [place] [address] Deoxyhemoglobin (BldA) [Mass fraction] 0.5 % 0.0 - 5.0 % [facility] Methemoglobin (BldA) [Mass fraction] 0.0 % 0.0 - 1.5 % [facility] Deoxyhemoglobin (BldA) [Mass fraction] 0.5 % Normal 0.0-5.0 [facility] Comment on above: Performed By: #### 2 4341-0 #### PATRICIA NAVARRETE ([id number]) [facility] ([facility]) [address] [place] [address] Methemoglobin (BldA) [Mass fraction] 0.0 % Normal 0.0-1.5 [facility] Comment on above: Performed By: #### 2 4341-0 #### PATRICIA NAVARRETE ([id number]) [facility] ([facility]) [address] [place] [address] Deoxyhemoglobin (BldA) [Mass fraction] 0.8 % 0.0 - 5.0 % [facility] Methemoglobin (BldA) [Mass fraction] 0.1 % 0.0 - 1.5 % [facility] Deoxyhemoglobin (BldA) [Mass fraction] 0.8 % Normal 0.0-5.0 [facility] Comment on above: Performed By: #### 2 030-5 ####PATRICIA NAVARRETE ([id number])[facility] ([facility])[address] [place] [address] Methemoglobin (BldA) [Mass fraction] 0.1 % Normal 0.0-1.5 [facility] Comment on above: Performed By: #### 2 030-5 ####PATRICIA NAVARRETE ([id number])[facility] ([facility])[address] [place] [address] Deoxyhemoglobin (BldA) [Mass fraction] 1.1 % 0.0 - 5.0 % [facility] Methemoglobin (BldA) [Mass fraction] 0.2 % 0.0 - 1.5 % [facility] Deoxyhemoglobin (BldA) [Mass fraction] 1.1 % Normal 0.0-5.0 [facility] Comment on above: Performed By: #### 2 030-5 ####PATRICIA NAVARRETE ([id number])[facility] ([facility])[address] [place] [address] Methemoglobin (BldA) [Mass fraction] 0.2 % Normal 0.0-1.5 [facility] Comment on above: Performed By: #### 2 030-5 ####PATRICIA NAVARRETE ([id number])[facility] ([facility])[address] [place] [address] Deoxyhemoglobin (BldA) [Mass fraction] 1.2 % 0.0 - 5.0 % [facility] Methemoglobin (BldA) [Mass fraction] 0.9 % 0.0 - 1.5 % [facility] Deoxyhemoglobin (BldA) [Mass fraction] 1.2 % Normal 0.0-5.0 [facility] Comment on above: Performed By: #### 2 030-5 ####PATRICIA NAVARRETE ([id number])[facility] ([facility])[address] [place] [address] Methemoglobin (BldA) [Mass fraction] 0.9 % Normal 0.0-1.5 [facility] Comment on above: Performed By: #### 2 030-5 ####PATRICIA NAVARRETE ([id number])[facility] ([facility])[address] [place] [address] Carboxyhemoglobin/Hemoglobin .totalon 09-13-2023 Carboxyhemoglobin (BldA) [Mass fraction] 1.9 % Normal [facility] Comment on above: Result Comment: Ref Values Non-Smokers 0.5-1.5% Smokers 0.5-10.0% Performed By: #### 5 8410-2 #### PATRICIA NAVARRETE ([id number]) [facility] ([facility]) [address] [place] [address] Carboxyhemoglobin (BldA) [Mass fraction] 1.8 % Normal [facility] Comment on above: Result Comment: Ref Values Non-Smokers 0.5-1.5% Smokers 0.5-10.0% Performed By: #### 2 4341-0 #### PATRICIA NAVARRETE ([id number]) [facility] ([facility]) [address] [place] [address] Carboxyhemoglobin (BldA) [Mass fraction] 1.6 % Normal [facility] Comment on above: Result Comment: Ref Values Non-Smokers 0.5-1.5% Smokers 0.5-10.0% Performed By: #### 2 4341-0 #### PATRICIA NAVARRETE ([id number]) [facility] ([facility]) [address] [place] [address] Carboxyhemoglobin (BldA) [Mass fraction] 1.5 % Normal [facility] Comment on above: Result Comment: Ref Values Non-Smokers 0.5-1.5% Smokers 0.5-10.0% Performed By: #### 2 030-5 ####PATRICIA NAVARRETE ([id number])[facility] ([facility])[address] [place] [address] Carboxyhemoglobin (BldA) [Mass fraction] 1.6 % Normal [facility] Comment on above: Result Comment: Ref Values Non-Smokers 0.5-1.5% Smokers 0.5-10.0% Performed By: #### 2 030-5 ####PATRICIA NAVARRETE ([id number])[facility] ([facility])[address] [place] [address] Carboxyhemoglobin (BldA) [Mass fraction] 1.2 % Normal [facility] Comment on above: Result Comment: Ref Values Non-Smokers 0.5-1.5% Smokers 0.5-10.0% Performed By: #### 2 030-5 ####PATRICIA NAVARRETE ([id number])[facility] ([facility])[address] [place] [address] Coagulation surface inducedo n 09-13-2023 aPTT Coag (PPP) [Time] 32 s Normal 27-38 [facility] Comment on above: Order Comment: The A PTT is no longer used for monitoring Unfractionated Heparin Therapy. For monitoring Heparin Therapy, use the Heparin Assay. Performed By: #### 2 4341-0 #### PATRICIA NAVARRETE ([id number]) [facility] ([facility]) [address] [place] [address] Coagulation tissue factor in ducedon 09-13-2023 PT Coag (PPP) [Time] 17.7 s High 9.8-12.8 [facility] Comment on above: Performed By: #### 2 4341-0 #### PATRICIA NAVARRETE ([id number]) [facility] ([facility]) [address] [place] [address] Coox Panel, Arterial Unsolic itedon 09-13-2023 Carboxyhemoglobin (BldA) [Mass fraction] 1.9 % [facility] Carboxyhemoglobin (BldA) [Mass fraction] 1.8 % [facility] Carboxyhemoglobin (BldA) [Mass fraction] 1.6 % [facility] Carboxyhemoglobin (BldA) [Mass fraction] 1.5 % [facility] Carboxyhemoglobin (BldA) [Mass fraction] 1.6 % [facility] Carboxyhemoglobin (BldA) [Mass fraction] 1.2 % [facility] ECG 12-LEADon 09-13-2023 ECG 12-LEAD Systolic BP 102 Diastolic BP 55 Ventricular Rate 81 Atrial Rate 81 P-R Interval 174 QRS Duration 110 Q-T Interval 430 QTC Calculation(Bazett) 499 P Fate 60 R Fate -34 T Fate 37 QRS Count 13 Q Onset 214 P Onset 127 P Offset 161 T Offset 429 QTC Fredericia 475 Diagnosis Normal sinus rhythm Left axis deviation Low voltage QRS Cannot rule out Anteroseptal infarct , age undetermined Abnormal ECG No previous ECGs available Confirmed by Frank Kumar ([id number]) on 09/19/2023 1:44:16 PM Normal [facility] Fibrinogenon 09-13-2023 Fibrinogen Coag (PPP) [Mass/Vol] 208 mg/dL 200 - 400 mg/dL [facility] Fibrinogen Coag (PPP) [Mass/Vol] 208 mg/dL Normal 200-400 [facility] Comment on above: Order Comment: On ad pinky to ICU Performed By: #### 5 8410-2 #### PATRICIA NAVARRETE ([id number]) [facility] ([facility]) [address] [place] [address] Fibrinogen Coag (PPP) [Mass/Vol] 183 mg/dL Low 200 - 400 mg/dL [facility] Fibrinogen Coag (PPP) [Mass/Vol] 183 mg/dL Low 200-400 [facility] Comment on above: Performed By: #### 2 4341-0 #### PATRICIA NAVARRETE ([id number]) [facility] ([facility]) [address] [place] [address] Fibrinogen Coag (PPP) [Mass/ Vol]on 09-13-2023 Interpretation and review of laboratory results Normal [facility] Gas AND CO AND electrolytes panelon 09-13-2023 Hemoglobin (Bld) [Mass/Vol] 9.5 g/dL Low 13.5-17.5 [facility] Comment on above: Performed By: #### 2 4341-0 #### PATRICIA NAVARRETE ([id number]) [facility] ([facility]) [address] [place] [address] Performed By: #### 5 8410-2 #### PATRICIA NAVARRETE ([id number]) [facility] ([facility]) [address] [place] [address] Oxyhemoglobin (BldA) [Mass fraction] 97.4 % Normal 94.0-98.0 [facility] Comment on above: Performed By: #### 2 4341-0 #### PATRICIA NAVARRETE ([id number]) [facility] ([facility]) [address] [place] [address] Performed By: #### 5 8410-2 #### PATRICIA NAVARRETE ([id number]) [facility] ([facility]) [address] [place] [address] Hemoglobin (Bld) [Mass/Vol] 8.4 g/dL Low 13.5-17.5 [facility] Comment on above: Performed By: #### 2 4341-0 #### PATRICIA NAVARRETE ([id number]) [facility] ([facility]) [address] [place] [address] Oxyhemoglobin (BldA) [Mass fraction] 97.2 % Normal 94.0-98.0 [facility] Comment on above: Performed By: #### 2 4341-0 #### PATRICIA NAVARRETE ([id number]) [facility] ([facility]) [address] [place] [address] Hemoglobin (Bld) [Mass/Vol] 8.8 g/dL Low 13.5-17.5 [facility] Comment on above: Performed By: #### 2 4341-0 #### PATRICIA NAVARRETE ([id number]) [facility] ([facility]) [address] [place] [address] Oxyhemoglobin (BldA) [Mass fraction] 97.8 % Normal 94.0-98.0 [facility] Comment on above: Performed By: #### 2 4341-0 #### PATRICIA NAVARRETE ([id number]) [facility] ([facility]) [address] [place] [address] Hemoglobin (Bld) [Mass/Vol] 8.8 g/dL Low 13.5-17.5 [facility] Comment on above: Performed By: #### 9 3685-6 ####PATRICIA NAVARRETE ([id number])[facility] ([facility])[address] [place] [address] Performed By: #### 2 030-5 ####PATRICIA NAVARRETE ([id number])[facility] ([facility])[address] [place] [address] Oxyhemoglobin (BldA) [Mass fraction] 97.5 % Normal 94.0-98.0 [facility] Comment on above: Performed By: #### 9 3685-6 ####PATRICIA NAVARRETE ([id number])[facility] ([facility])[address] [place] [address] Performed By: #### 2 030-5 ####PATRICIA NAVARRETE ([id number])[facility] ([facility])[address] [place] [address] Hemoglobin (Bld) [Mass/Vol] 11.2 g/dL Low 13.5-17.5 [facility] Comment on above: Performed By: #### 9 3685-6 ####PATRICIA NAVARRETE ([id number])[facility] ([facility])[address] [place] [address] Performed By: #### 2 030-5 ####PATRICIA NAVARRETE ([id number])[facility] ([facility])[address] [place] [address] Oxyhemoglobin (BldA) [Mass fraction] 97.1 % Normal 94.0-98.0 [facility] Comment on above: Performed By: #### 9 3685-6 ####PATRICIA NAVARRETE ([id number])[facility] ([facility])[address] [place] [address] Performed By: #### 2 030-5 ####PATRICIA NAVARRETE ([id number])[facility] ([facility])[address] [place] [address] Hemoglobin (Bld) [Mass/Vol] 12.1 g/dL Low 13.5-17.5 [facility] Comment on above: Performed By: #### 9 3685-6 ####PATRICIA NAVARRETE ([id number])[facility] ([facility])[address] [place] [address] Performed By: #### 2 030-5 ####PATRICIA NAVARRETE ([id number])[facility] ([facility])[address] [place] [address] Oxyhemoglobin (BldA) [Mass fraction] 96.8 % Normal 94.0-98.0 [facility] Comment on above: Performed By: #### 9 3685-6 ####PATRICIA NAVARRETE ([id number])[facility] ([facility])[address] [place] [address] Performed By: #### 2 030-5 ####PATRICIA NAVARRETE ([id number])[facility] ([facility])[address] [place] [address] Gas and Carbon monoxide and Electrolytes panel (BldA)on 09-13-2023 Anion gap 4 (BldA) [Moles/Vol] 13 [facility] Base excess Calc (Bld) [Moles/Vol] -3.2000 mmol/L Low -2.0 - 3.0 mmol/L [facility] Calcium.ionized (BldA) [Moles/Vol] 1.22 mmol/L 1.10 - 1.33 mmol/L [facility] Chloride (BldA) [Moles/Vol] 105 mmol/L 98 - 107 mmol/L [facility] CO2 (Bld) [Partial pressure] 43 mm[Hg] High [facility] Frequency (BPM) 21 bpm [facility] Glucose [Mass/Vol] 263 mg/dL High 74 - 99 mg/dL [facility] HCO3 (Bld) [Moles/Vol] 22.7 mmol/L 22.0 - 26.0 mmol/L [facility] Hematocrit Est (Bld) [Volume fraction] 33.0 % Low 41.0 - 52.0 % [facility] Hemoglobin (Bld) [Mass/Vol] 10.9 g/dL Low 13.5 - 17.5 g/dL [facility] Inhaled oxygen concentration 30 % [facility] Interpretation and review of laboratory results Abnormal [facility] Lactate (BldA) [Moles/Vol] 1.5 mmol/L 0.4 - 2.0 mmol/L [facility] Oxygen (Bld) [Partial pressure] 76 mm[Hg] Low [facility] Oxyhemoglobin (BldA) [Mass fraction] 93.6 % Low 94.0 - 98.0 % [facility] Peak Pressure 10.0 cm H2O [facility] Peep CHM2O 5.0 cm H2O [facility] pH (Bld) 7.33 [pH] Low 7.38 - 7.42 pH [facility] Potassium (BldA) [Moles/Vol] 4.7 mmol/L 3.5 - 5.3 mmol/L [facility] Pressure Support 5 cm H2O [facility] Sodium (BldA) [Moles/Vol] 136 mmol/L 136 - 145 mmol/L [facility] Specimen drawn from Nom Arterial Line [facility] Spontaneous Tidal Volume 431 mL [facility] Total Minute Volume 9.6 Liter Unive [facility] Ventilator Mode CPAP [facility] Anion gap 4 (BldA) [Moles/Vol] 13 mmo/L Normal 10-25 [facility] Comment on above: Performed By: #### 3 4529-8 #### PATRICIA NAVARRETE ([id number]) [facility] ([facility]) [address] [place] [address] Base excess Calc (Bld) [Moles/Vol] -3.2000 mmol/L Low -2.0-3.0 [facility] Comment on above: Performed By: #### 3 4529-8 #### PATRICIA NAVARRETE ([id number]) [facility] ([facility]) [address] [place] [address] Calcium.ionized (BldA) [Moles/Vol] 1.22 mmol/L Normal 1.10-1.33 [facility] Comment on above: Performed By: #### 3 4529-8 #### PATRICIA NAVARRETE ([id number]) [facility] ([facility]) [address] [place] [address] Chloride (BldA) [Moles/Vol] 105 mmol/L Normal 98-107 [facility] Comment on above: Performed By: #### 3 4529-8 #### PATRICIA NAVARRETE ([id number]) [facility] ([facility]) [address] [place] [address] CO2 (Bld) [Partial pressure] 43 mm Hg High 38-42 [facility] Comment on above: Performed By: #### 3 4529-8 #### PATRICIA NAVARRETE ([id number]) [facility] ([facility]) [address] [place] [address] FREQUENCY (BPM) 21 bpm Normal [facility] Comment on above: Performed By: #### 3 4529-8 #### PATRICIA NAVARRETE ([id number]) [facility] ([facility]) [address] [place] [address] Glucose [Mass/Vol] 263 mg/dL High 74-99 [facility] Comment on above: Performed By: #### 3 4529-8 #### PATRICIA NAVARRETE ([id number]) [facility] ([facility]) [address] [place] [address] HCO3 (Bld) [Moles/Vol] 22.7 mmol/L Normal 22.0-26.0 [facility] Comment on above: Performed By: #### 3 4529-8 #### PATRICIA NAVARRETE ([id number]) [facility] ([facility]) [address] [place] [address] Hematocrit Est (Bld) [Volume fraction] 33.0 % Low 41.0-52.0 [facility] Comment on above: Performed By: #### 3 4529-8 #### PATRICIA NVAARRETE ([id number]) [facility] ([facility]) [address] [place] [address] Hemoglobin (Bld) [Mass/Vol] 10.9 g/dL Low 13.5-17.5 [facility] Comment on above: Performed By: #### 3 4529-8 #### PATRICIA NAVARRETE ([id number]) [facility] ([facility]) [address] [place] [address] Inhaled oxygen concentration 30 % Normal [facility] Comment on above: Performed By: #### 3 4529-8 #### PATRICIA NAVARRETE ([id number]) [facility] ([facility]) [address] [place] [address] Lactate (BldA) [Moles/Vol] 1.5 mmol/L Normal 0.4-2.0 [facility] Comment on above: Performed By: #### 3 4529-8 #### PATRICIA NAVARRETE ([id number]) [facility] ([facility]) [address] [place] [address] Oxygen (Bld) [Partial pressure] 76 mm Hg Low 85-95 [facility] Comment on above: Performed By: #### 3 4529-8 #### PATRICIA NAVARRETE ([id number]) [facility] ([facility]) [address] [place] [address] Oxyhemoglobin (BldA) [Mass fraction] 93.6 % Low 94.0-98.0 [facility] Comment on above: Performed By: #### 3 4529-8 #### PATRICIA NAVARRETE ([id number]) [facility] ([facility]) [address] [place] [address] PEAK PRESSURE 10.0 cm H2O Normal [facility] Comment on above: Performed By: #### 3 4529-8 #### PATRICIA NAVARRETE ([id number]) [facility] ([facility]) [address] [place] [address] PEEP CMH2O 5.0 cm H2O Normal [facility] Comment on above: Performed By: #### 3 4529-8 #### PATRICIA NAVARRETE ([id number]) [facility] ([facility]) [address] [place] [address] pH (Bld) 7.33 [pH] Low 7.38-7.42 [facility] Comment on above: Performed By: #### 3 4529-8 #### PATRICIA NAVARRETE ([id number]) [facility] ([facility]) [address] [place] [address] Potassium (BldA) [Moles/Vol] 4.7 mmol/L Normal 3.5-5.3 [facility] Comment on above: Performed By: #### 3 4529-8 #### PATRICIA NAVARRETE ([id number]) [facility] ([facility]) [address] [place] [address] PRESSURE SUPPORT 5 cm H2O Normal [facility] Comment on above: Performed By: #### 3 4529-8 #### PATRICIA NAVARRETE ([id number]) [facility] ([facility]) [address] [place] [address] Sodium (BldA) [Moles/Vol] 136 mmol/L Normal 136-145 [facility] Comment on above: Performed By: #### 3 4529-8 #### PATRICIA NAVARRETE ([id number]) [facility] ([facility]) [address] [place] [address] Specimen drawn from Nom Arterial Line Normal [facility] Comment on above: Performed By: #### 3 4529-8 #### PATRICIA NAVARRETE ([id number]) [facility] ([facility]) [address] [place] [address] SPONTANEOUS TIDAL VOLUME 431 mL [facility] Comment on above: Performed By: #### 3 4529-8 #### PATRICIA NAVARRETE ([id number]) [facility] ([facility]) [address] [place] [address] TOTAL MINUTE VOLUME 9.6 Liter Normal [facility] Comment on above: Performed By: #### 3 4529-8 #### PATRICIA NAVARRETE ([id number]) [facility] ([facility]) [address] [place] [address] VENTILATOR MODE CPAP Normal [facility] Comment on above: Performed By: #### 3 4529-8 #### PATRICIA NAVARRETE ([id number]) [facility] ([facility]) [address] [place] [address] Anion gap 4 (BldA) [Moles/Vol] 11 [facility] Base excess Calc (Bld) [Moles/Vol] -2.7000 mmol/L Low -2.0 - 3.0 mmol/L [facility] Calcium.ionized (BldA) [Moles/Vol] 1.22 mmol/L 1.10 - 1.33 mmol/L [facility] Chloride (BldA) [Moles/Vol] 106 mmol/L 98 - 107 mmol/L [facility] CO2 (Bld) [Partial pressure] 44 mm[Hg] High [facility] Frequency (BPM) 21 bpm [facility] Glucose [Mass/Vol] 258 mg/dL High 74 - 99 mg/dL [facility] HCO3 (Bld) [Moles/Vol] 23.2 mmol/L 22.0 - 26.0 mmol/L [facility] Hematocrit Est (Bld) [Volume fraction] 33.0 % Low 41.0 - 52.0 % [facility] Hemoglobin (Bld) [Mass/Vol] 11.1 g/dL Low 13.5 - 17.5 g/dL [facility] Inhaled oxygen concentration 40 % [facility] Interpretation and review of laboratory results Abnormal [facility] Lactate (BldA) [Moles/Vol] 1.5 mmol/L 0.4 - 2.0 mmol/L [facility] Oxygen (Bld) [Partial pressure] 98 mm[Hg] High [facility] Oxyhemoglobin (BldA) [Mass fraction] 95.8 % 94.0 - 98.0 % [facility] Peak Pressure 10.0 cm H2O [facility] Peep CHM2O 5.0 cm H2O [facility] pH (Bld) 7.33 [pH] Low 7.38 - 7.42 pH [facility] Potassium (BldA) [Moles/Vol] 4.5 mmol/L 3.5 - 5.3 mmol/L [facility] Pressure Support 5 cm H2O [facility] Sodium (BldA) [Moles/Vol] 136 mmol/L 136 - 145 mmol/L [facility] Specimen drawn from Nom Arterial Line [facility] Spontaneous Tidal Volume 410 mL [facility] Total Minute Volume 8.7 Liter Unive [facility] Ventilator Mode CPAP [facility] Anion gap 4 (BldA) [Moles/Vol] 11 mmo/L Normal 10-25 [facility] Comment on above: Performed By: #### 3 4529-8 #### PATRICIA NAVARRETE ([id number]) [facility] ([facility]) [address] [place] [address] Base excess Calc (Bld) [Moles/Vol] -2.7000 mmol/L Low -2.0-3.0 [facility] Comment on above: Performed By: #### 3 4529-8 #### PATRICIA NAVARRETE ([id number]) [facility] ([facility]) [address] [place] [address] Calcium.ionized (BldA) [Moles/Vol] 1.22 mmol/L Normal 1.10-1.33 [facility] Comment on above: Performed By: #### 3 4529-8 #### PATRICIA NAVARRETE ([id number]) [facility] ([facility]) [address] [place] [address] Chloride (BldA) [Moles/Vol] 106 mmol/L Normal 98-107 [facility] Comment on above: Performed By: #### 3 4529-8 #### PATRICIA NAVARRETE ([id number]) [facility] ([facility]) [address] [place] [address] CO2 (Bld) [Partial pressure] 44 mm Hg High 38-42 [facility] Comment on above: Performed By: #### 3 4529-8 #### PATRICIA NAVARRETE ([id number]) [facility] ([facility]) [address] [place] [address] FREQUENCY (BPM) 21 bpm Normal [facility] Comment on above: Performed By: #### 3 4529-8 #### PATRICIA NAVARRETE ([id number]) [facility] ([facility]) [address] [place] [address] Glucose [Mass/Vol] 258 mg/dL High 74-99 [facility] Comment on above: Performed By: #### 3 4529-8 #### PATRICIA NAVARRETE ([id number]) [facility] ([facility]) [address] [place] [address] HCO3 (Bld) [Moles/Vol] 23.2 mmol/L Normal 22.0-26.0 [facility] Comment on above: Performed By: #### 3 4529-8 #### PATRICIA NAVARRETE ([id number]) [facility] ([facility]) [address] [place] [address] Hematocrit Est (Bld) [Volume fraction] 33.0 % Low 41.0-52.0 [facility] Comment on above: Performed By: #### 3 4529-8 #### PATRICIA NAVARRETE ([id number]) [facility] ([facility]) [address] [place] [address] Hemoglobin (Bld) [Mass/Vol] 11.1 g/dL Low 13.5-17.5 [facility] Comment on above: Performed By: #### 3 4529-8 #### PATRICIA NAVARRETE ([id number]) [facility] ([facility]) [address] [place] [address] Inhaled oxygen concentration 40 % Normal [facility] Comment on above: Performed By: #### 3 4529-8 #### PATRICIA NAVARRETE ([id number]) [facility] ([facility]) [address] [place] [address] Lactate (BldA) [Moles/Vol] 1.5 mmol/L Normal 0.4-2.0 [facility] Comment on above: Performed By: #### 3 4529-8 #### PATRICIA NAVARRETE ([id number]) [facility] ([facility]) [address] [place] [address] Oxygen (Bld) [Partial pressure] 98 mm Hg High 85-95 [facility] Comment on above: Performed By: #### 3 4529-8 #### PTARICIA NAVARRETE ([id number]) [facility] ([facility]) [address] [place] [address] Oxyhemoglobin (BldA) [Mass fraction] 95.8 % Normal 94.0-98.0 [facility] Comment on above: Performed By: #### 3 4529-8 #### PATRICIA NAVARRETE ([id number]) [facility] ([facility]) [address] [place] [address] PEAK PRESSURE 10.0 cm H2O Normal [facility] Comment on above: Performed By: #### 3 4529-8 #### PATRICIA NAVARRETE ([id number]) [facility] ([facility]) [address] [place] [address] PEEP CMH2O 5.0 cm H2O Normal [facility] Comment on above: Performed By: #### 3 4529-8 #### PATRICIA NAVARRETE ([id number]) [facility] ([facility]) [address] [place] [address] pH (Bld) 7.33 [pH] Low 7.38-7.42 [facility] Comment on above: Performed By: #### 3 4529-8 #### PATRICIA NAVARRETE ([id number]) [facility] ([facility]) [address] [place] [address] Potassium (BldA) [Moles/Vol] 4.5 mmol/L Normal 3.5-5.3 [facility] Comment on above: Performed By: #### 3 4529-8 #### PATRICIA NAVARRETE ([id number]) [facility] ([facility]) [address] [place] [address] PRESSURE SUPPORT 5 cm H2O Normal [facility] Comment on above: Performed By: #### 3 4529-8 #### PATRICIA NAVARRETE ([id number]) [facility] ([facility]) [address] [place] [address] Sodium (BldA) [Moles/Vol] 136 mmol/L Normal 136-145 [facility] Comment on above: Performed By: #### 3 4529-8 #### PATRICIA NAVARRETE ([id number]) [facility]) [address] [place] [address] Specimen drawn from Nom Arterial Line Normal [facility] Comment on above: Performed By: #### 3 4529-8 #### PATRICIA NAVARRETE ([id number]) [facility]) [address] [place] [address] SPONTANEOUS TIDAL VOLUME 410 mL Normal [facility] Comment on above: Performed By: #### 3 4529-8 #### PATRICIA NAVARRETE ([id number]) [facility]) [address] [place] [address] TOTAL MINUTE VOLUME 8.7 Liter Normal [facility] Comment on above: Performed By: #### 3 4529-8 #### PATRICIA NAVARRETE ([id number]) [facility]) [address] [place] [address] VENTILATOR MODE CPAP Normal [facility] Comment on above: Performed By: #### 3 4529-8 #### PATRICIA NAVARRETE ([id number]) [facility]) [address] [place] [address] Anion gap 4 (BldA) [Moles/Vol] 10 [facility] Base excess Calc (Bld) [Moles/Vol] -0.3000 mmol/L -2.0 - 3.0 mmol/L [facility] Calcium.ionized (BldA) [Moles/Vol] 1.28 mmol/L 1.10 - 1.33 mmol/L [facility] Chloride (BldA) [Moles/Vol] 107 mmol/L 98 - 107 mmol/L [facility] CO2 (Bld) [Partial pressure] 45 mm[Hg] High [facility] Frequency (BPM) 16 bpm [facility] Glucose [Mass/Vol] 156 mg/dL High 74 - 99 mg/dL [facility] HCO3 (Bld) [Moles/Vol] 25.4 mmol/L 22.0 - 26.0 mmol/L [facility] Hematocrit Est (Bld) [Volume fraction] 34.0 % Low 41.0 - 52.0 % [facility] Hemoglobin (Bld) [Mass/Vol] 11.2 g/dL Low 13.5 - 17.5 g/dL [facility] Inhaled oxygen concentration 50 % [facility] Interpretation and review of laboratory results Abnormal [facility] Lactate (BldA) [Moles/Vol] 2.2 mmol/L High 0.4 - 2.0 mmol/L [facility] Oxygen (Bld) [Partial pressure] 97 mm[Hg] High [facility] Oxyhemoglobin (BldA) [Mass fraction] 95.6 % 94.0 - 98.0 % [facility] Peak Pressure 25.0 cm H2O [facility] Peep CHM2O 5.0 cm H2O [facility] pH (Bld) 7.36 [pH] Low 7.38 - 7.42 pH [facility] Potassium (BldA) [Moles/Vol] 4.0 mmol/L 3.5 - 5.3 mmol/L [facility] Sodium (BldA) [Moles/Vol] 138 mmol/L 136 - 145 mmol/L [facility] Specimen drawn from Nom Arterial Line [facility] Spontaneous Tidal Volume 507 mL [facility] Tidal Volume 500 mL [facility] Total Minute Volume 8.1 Liter Unive [facility] Ventilator Mode A/C [facility] Ventilator Rate 16 bpm [facility] Anion gap 4 (BldA) [Moles/Vol] 10 mmo/L Normal 10-25 [facility] Comment on above: Performed By: #### 5 8410-2 #### PATRICIA NAVARRETE ([id number]) [facility] ([facility]) [address] [place] [address] Base excess Calc (Bld) [Moles/Vol] -0.3000 mmol/L Normal -2.0-3.0 [facility] Comment on above: Performed By: #### 5 8410-2 #### PATRICIA NAVARRETE ([id number]) [facility] ([facility]) [address] [place] [address] Calcium.ionized (BldA) [Moles/Vol] 1.28 mmol/L Normal 1.10-1.33 [facility] Comment on above: Performed By: #### 5 8410-2 #### PATRICIA NAVARRETE ([id number]) [facility] ([facility]) [address] [place] [address] Chloride (BldA) [Moles/Vol] 107 mmol/L Normal 98-107 [facility] Comment on above: Performed By: #### 5 8410-2 #### PATRICIA NAVARRETE ([id number]) [facility] ([facility]) [address] [place] [address] CO2 (Bld) [Partial pressure] 45 mm Hg High 38-42 [facility] Comment on above: Performed By: #### 5 8410-2 #### PATRICIA NAVARRETE ([id number]) [facility] ([facility]) [address] [place] [address] FREQUENCY (BPM) 16 bpm Normal [facility] Comment on above: Performed By: #### 5 8410-2 #### PATRICIA NAVARRETE ([id number]) [facility] ([facility]) [address] [place] [address] Glucose [Mass/Vol] 156 mg/dL High 74-99 [facility] Comment on above: Performed By: #### 5 8410-2 #### PATRICIA NAVARRETE ([id number]) [facility] ([facility]) [address] [place] [address] HCO3 (Bld) [Moles/Vol] 25.4 mmol/L Normal 22.0-26.0 [facility] Comment on above: Performed By: #### 5 8410-2 #### PATRICIA NAVARRETE ([id number]) [facility] ([facility]) [address] [place] [address] Hematocrit Est (Bld) [Volume fraction] 34.0 % Low 41.0-52.0 [facility] Comment on above: Performed By: #### 5 8410-2 #### PATRICIA NAVARRETE ([id number]) [facility] ([facility]) [address] [place] [address] Hemoglobin (Bld) [Mass/Vol] 11.2 g/dL Low 13.5-17.5 [facility] Comment on above: Performed By: #### 5 8410-2 #### PATRICIA NAVARRETE ([id number]) [facility] ([facility]) [address] [place] [address] Inhaled oxygen concentration 50 % Normal [facility] Comment on above: Performed By: #### 5 8410-2 #### PATRICIA NAVARRETE ([id number]) [facility] ([facility]) [address] [place] [address] Lactate (BldA) [Moles/Vol] 2.2 mmol/L High 0.4-2.0 [facility] Comment on above: Performed By: #### 5 8410-2 #### PATRICIA NAVARRETE ([id number]) [facility] ([facility]) [address] [place] [address] Oxygen (Bld) [Partial pressure] 97 mm Hg High 85-95 [facility] Comment on above: Performed By: #### 5 8410-2 #### PATRICIA NAVARRETE ([id number]) [facility] ([facility]) [address] [place] [address] Oxyhemoglobin (BldA) [Mass fraction] 95.6 % Normal 94.0-98.0 [facility] Comment on above: Performed By: #### 5 8410-2 #### PATRICIA NAVARRETE ([id number]) [facility] ([facility]) [address] [place] [address] PEAK PRESSURE 25.0 cm H2O [facility] Comment on above: Performed By: #### 5 8410-2 #### PATRICIA NAVARRETE ([id number]) [facility] ([facility]) [address] [place] [address] PEEP CMH2O 5.0 cm H2O [facility] Comment on above: Performed By: #### 5 8410-2 #### PATRICIA NAVARRETE ([id number]) [facility] ([facility]) [address] [place] [address] pH (Bld) 7.36 [pH] Low 7.38-7.42 [facility] Comment on above: Performed By: #### 5 8410-2 #### PATRICIA NAVARRETE ([id number]) [facility] ([facility]) [address] [place] [address] Potassium (BldA) [Moles/Vol] 4.0 mmol/L Normal 3.5-5.3 [facility] Comment on above: Performed By: #### 5 8410-2 #### PATRICIA NAVARRETE ([id number]) [facility] ([facility]) [address] [place] [address] Sodium (BldA) [Moles/Vol] 138 mmol/L Normal 136-145 [facility] Comment on above: Performed By: #### 5 8410-2 #### PATRICIA NAVARRETE ([id number]) [facility] ([facility]) [address] [place] [address] Specimen drawn from Nom Arterial Line [facility] Comment on above: Performed By: #### 5 8410-2 #### PATRICIA NAVARRETE ([id number]) [facility] ([facility]) [address] [place] [address] SPONTANEOUS TIDAL VOLUME 507 mL [facility] Comment on above: Performed By: #### 5 8410-2 #### PATRICIA NAVARRETE ([id number]) [facility] ([facility]) [address] [place] [address] TIDAL VOLUME 500 mL [facility] Comment on above: Performed By: #### 5 8410-2 #### PATRICIA NAVARRETE ([id number]) [facility] ([facility]) [address] [place] [address] TOTAL MINUTE VOLUME 8.1 Liter Normal [facility] Comment on above: Performed By: #### 5 8410-2 #### PATRICIA NAVARRETE ([id number]) [facility] ([facility]) [address] [place] [address] VENTILATOR MODE A/C Normal [facility] Comment on above: Performed By: #### 5 8410-2 #### PATRICIA NAVARRETE ([id number]) [facility] ([facility]) [address] [place] [id number] VENTILATOR RATE 16 bpm Normal [facility] Comment on above: Performed By: #### 5 8410-2 #### PATRICIA NAVRARETE ([id number]) [facility] ([facility]) [address] [place] [address] Anion gap 4 (BldA) [Moles/Vol] 12 [facility] Base excess Calc (Bld) [Moles/Vol] -1.7000 mmol/L -2.0 - 3.0 mmol/L [facility] Calcium.ionized (BldA) [Moles/Vol] 1.34 mmol/L High 1.10 - 1.33 mmol/L [facility] Chloride (BldA) [Moles/Vol] 106 mmol/L 98 - 107 mmol/L [facility] CO2 (Bld) [Partial pressure] 38 mm[Hg] [facility] Glucose [Mass/Vol] 154 mg/dL High 74 - 99 mg/dL [facility] HCO3 (Bld) [Moles/Vol] 23.0 mmol/L 22.0 - 26.0 mmol/L [facility] Hematocrit Est (Bld) [Volume fraction] 29.0 % Low 41.0 - 52.0 % [facility] Inhaled oxygen concentration 100 % [facility] Lactate (BldA) [Moles/Vol] 3.5 mmol/L High 0.4 - 2.0 mmol/L [facility] Oxygen (Bld) [Partial pressure] 183 mm[Hg] High [facility] pH (Bld) 7.39 [pH] 7.38 - 7.42 pH [facility] Potassium (BldA) [Moles/Vol] 3.9 mmol/L 3.5 - 5.3 mmol/L [facility] Sodium (BldA) [Moles/Vol] 137 mmol/L 136 - 145 mmol/L [facility] Anion gap 4 (BldA) [Moles/Vol] 12 mmo/L Normal 10-25 [facility] Comment on above: Performed By: #### 2 4341-0 #### PATRICIA NAVARRETE ([id number]) [facility] ([facility]) [address] [place] [address] Base excess Calc (Bld) [Moles/Vol] -1.7000 mmol/L Normal -2.0-3.0 [facility] Comment on above: Performed By: #### 2 4341-0 #### PATRICIA NAVARRETE ([id number]) [facility] ([facility]) [address] [place] [address] Calcium.ionized (BldA) [Moles/Vol] 1.34 mmol/L High 1.10-1.33 [facility] Comment on above: Performed By: #### 2 4341-0 #### PATRICIA NAVARRETE ([id number]) [facility] ([facility]) [address] [place] [address] Chloride (BldA) [Moles/Vol] 106 mmol/L Normal 98-107 [facility] Comment on above: Performed By: #### 2 4341-0 #### PATRICIA NAVARRETE ([id number]) [facility] ([facility]) [address] [place] [address] CO2 (Bld) [Partial pressure] 38 mm Hg Normal 38-42 [facility] Comment on above: Performed By: #### 2 4341-0 #### PATRICIA NAVARRETE ([id number]) [facility] ([facility]) [address] [place] [address] Glucose [Mass/Vol] 154 mg/dL High 74-99 [facility] Comment on above: Performed By: #### 2 4341-0 #### PATRICIA NAVARRETE ([id number]) [facility] ([facility]) [address] [place] [address] HCO3 (Bld) [Moles/Vol] 23.0 mmol/L Normal 22.0-26.0 [facility] Comment on above: Performed By: #### 2 4341-0 #### PATRICIA NAVARRETE ([id number]) [facility] ([facility]) [address] [place] [address] Hematocrit Est (Bld) [Volume fraction] 29.0 % Low 41.0-52.0 [facility] Comment on above: Performed By: #### 2 4341-0 #### PATRICIA NAVARRETE ([id number]) [facility] ([facility]) [address] [place] [address] Inhaled oxygen concentration 100 % Normal [facility] Comment on above: Performed By: #### 2 4341-0 #### PATRICIA NAVARRETE ([id number]) [facility] ([facility]) [address] [place] [address] Lactate (BldA) [Moles/Vol] 3.5 mmol/L High 0.4-2.0 [facility] Comment on above: Performed By: #### 2 4341-0 #### PATRICIA NAVARRETE ([id number]) [facility] ([facility]) [address] [place] [address] Oxygen (Bld) [Partial pressure] 183 mm Hg High 85-95 [facility] Comment on above: Performed By: #### 2 4341-0 #### PATRICIA NAVARRETE ([id number]) [facility] ([facility]) [address] [place] [address] pH (Bld) 7.39 [pH] Normal 7.38-7.42 [facility] Comment on above: Performed By: #### 2 4341-0 #### PATRICIA NAVARRETE ([id number]) [facility] ([facility]) [address] [place] [address] Potassium (BldA) [Moles/Vol] 3.9 mmol/L Normal 3.5-5.3 [facility] Comment on above: Performed By: #### 2 4341-0 #### PATRICIA NAVARRETE ([id number]) [facility] [address] [place] [address] Sodium (BldA) [Moles/Vol] 137 mmol/L Normal 136-145 [facility] Comment on above: Performed By: #### 2 4341-0 #### PATRICIA NAVARRETE ([id number]) [facility]) [address] [place] [address] Anion gap 4 (BldA) [Moles/Vol] 13 [facility] Base excess Calc (Bld) [Moles/Vol] -2.3000 mmol/L Low -2.0 - 3.0 mmol/L [facility] Calcium.ionized (BldA) [Moles/Vol] 1.41 mmol/L High 1.10 - 1.33 mmol/L [facility] Chloride (BldA) [Moles/Vol] 105 mmol/L 98 - 107 mmol/L [facility] CO2 (Bld) [Partial pressure] 37 mm[Hg] Low [facility] Glucose [Mass/Vol] 185 mg/dL High 74 - 99 mg/dL [facility] HCO3 (Bld) [Moles/Vol] 22.4 mmol/L 22.0 - 26.0 mmol/L [facility] Hematocrit Est (Bld) [Volume fraction] 25.0 % Low 41.0 - 52.0 % [facility] Inhaled oxygen concentration 100 % [facility] Lactate (BldA) [Moles/Vol] 3.8 mmol/L High 0.4 - 2.0 mmol/L [facility] Oxygen (Bld) [Partial pressure] 112 mm[Hg] High [facility] pH (Bld) 7.39 [pH] 7.38 - 7.42 pH [facility] Potassium (BldA) [Moles/Vol] 4.1 mmol/L 3.5 - 5.3 mmol/L [facility] Sodium (BldA) [Moles/Vol] 136 mmol/L 136 - 145 mmol/L [facility] Anion gap 4 (BldA) [Moles/Vol] 13 mmo/L Normal 10-25 [facility] Comment on above: Performed By: #### 2 4341-0 #### PATRICIA NAVARRETE ([id number]) [facility] ([facility]) [address] [place] [address] Base excess Calc (Bld) [Moles/Vol] -2.3000 mmol/L Low -2.0-3.0 [facility] Comment on above: Performed By: #### 2 4341-0 #### PATRICIA NAVARRETE ([id number]) [facility] ([facility]) [address] [place] [address] Calcium.ionized (BldA) [Moles/Vol] 1.41 mmol/L High 1.10-1.33 [facility] Comment on above: Performed By: #### 2 4341-0 #### PATRICIA NAVARRETE ([id number]) [facility] ([facility]) [address] [place] [address] Chloride (BldA) [Moles/Vol] 105 mmol/L Normal 98-107 [facility] Comment on above: Performed By: #### 2 4341-0 #### PATRICIA NAVARRETE ([id number]) [facility] ([facility]) [address] [place] [address] CO2 (Bld) [Partial pressure] 37 mm Hg Low 38-42 [facility] Comment on above: Performed By: #### 2 4341-0 #### PATRICIA NAVARRETE ([id number]) [facility] ([facility]) [address] [place] [address] Glucose [Mass/Vol] 185 mg/dL High 74-99 [facility] Comment on above: Performed By: #### 2 4341-0 #### PATRICIA NAVARRETE ([id number]) [facility] ([facility]) [address] [place] [address] HCO3 (Bld) [Moles/Vol] 22.4 mmol/L Normal 22.0-26.0 [facility] Comment on above: Performed By: #### 2 4341-0 #### PATRICIA NAVARRETE ([id number]) [facility] ([facility]) [address] [place] [address] Hematocrit Est (Bld) [Volume fraction] 25.0 % Low 41.0-52.0 [facility] Comment on above: Performed By: #### 2 4341-0 #### PATRICIA NAVARRETE ([id number]) [facility] ([facility]) [address] [place] [address] Inhaled oxygen concentration 100 % Normal [facility] Comment on above: Performed By: #### 2 4341-0 #### PATRICIA NAVARRETE ([id number]) [facility] ([facility]) [address] [place] [address] Lactate (BldA) [Moles/Vol] 3.8 mmol/L High 0.4-2.0 [facility] Comment on above: Performed By: #### 2 4341-0 #### PATRICIA NAVARRETE ([id number]) [facility] ([facility]) [address] [place] [address] Oxygen (Bld) [Partial pressure] 112 mm Hg High 85-95 [facility] Comment on above: Performed By: #### 2 4341-0 #### PATRICIA NAVARRETE ([id number]) [facility] ([facility]) [address] [place] [address] pH (Bld) 7.39 [pH] Normal 7.38-7.42 [facility] Comment on above: Performed By: #### 2 4341-0 #### PATRICIA NAVARRETE ([id number]) [facility] ([facility]) [address] [place] [address] Potassium (BldA) [Moles/Vol] 4.1 mmol/L Normal 3.5-5.3 [facility] Comment on above: Performed By: #### 2 4341-0 #### PATRICIA NAVARRETE ([id number]) [facility] ([facility]) [address] [place] [address] Sodium (BldA) [Moles/Vol] 136 mmol/L Normal 136-145 [facility] Comment on above: Performed By: #### 2 4341-0 #### PATRICIA NAVARRETE ([id number]) [facility] ([facility]) [address] [place] [address] Anion gap 4 (BldA) [Moles/Vol] 12 [facility] Base excess Calc (Bld) [Moles/Vol] -0.2000 mmol/L -2.0 - 3.0 mmol/L [facility] Calcium.ionized (BldA) [Moles/Vol] 1.09 mmol/L Low 1.10 - 1.33 mmol/L [facility] Chloride (BldA) [Moles/Vol] 104 mmol/L 98 - 107 mmol/L [facility] CO2 (Bld) [Partial pressure] 45 mm[Hg] High [facility] Glucose [Mass/Vol] 218 mg/dL High 74 - 99 mg/dL [facility] HCO3 (Bld) [Moles/Vol] 25.4 mmol/L 22.0 - 26.0 mmol/L [facility] Hematocrit Est (Bld) [Volume fraction] 26.0 % Low 41.0 - 52.0 % [facility] Inhaled oxygen concentration 90 % [facility] Lactate (BldA) [Moles/Vol] 3.3 mmol/L High 0.4 - 2.0 mmol/L [facility] Oxygen (Bld) [Partial pressure] 350 mm[Hg] High [facility] pH (Bld) 7.36 [pH] Low 7.38 - 7.42 pH [facility] Potassium (BldA) [Moles/Vol] 4.8 mmol/L 3.5 - 5.3 mmol/L [facility] Sodium (BldA) [Moles/Vol] 137 mmol/L 136 - 145 mmol/L [facility] Anion gap 4 (BldA) [Moles/Vol] 12 mmo/L Normal 10-25 [facility] Comment on above: Performed By: #### 2 4341-0 #### PATRICIA NAVARRETE ([id number]) [facility] ([facility]) [address] [place] [address] Base excess Calc (Bld) [Moles/Vol] -0.2000 mmol/L Normal -2.0-3.0 [facility] Comment on above: Performed By: #### 2 4341-0 #### PATRICIA NAVARRETE ([id number]) [facility] ([facility]) [address] [place] [address] Calcium.ionized (BldA) [Moles/Vol] 1.09 mmol/L Low 1.10-1.33 [facility] Comment on above: Performed By: #### 2 4341-0 #### PATRICIA NAVARRETE ([id number]) [facility] ([facility]) [address] [place] [address] Chloride (BldA) [Moles/Vol] 104 mmol/L Normal 98-107 [facility] Comment on above: Performed By: #### 2 4341-0 #### PATRICIA NAVARRETE ([id number]) [facility] ([facility]) [address] [place] [address] CO2 (Bld) [Partial pressure] 45 mm Hg High 38-42 [facility] Comment on above: Performed By: #### 2 4341-0 #### PATRICIA NAVARRETE ([id number]) [facility] ([facility]) [address] [place] [address] Glucose [Mass/Vol] 218 mg/dL High 74-99 [facility] Comment on above: Performed By: #### 2 4341-0 #### PATRICIA NAVARRETE ([id number]) [facility] ([facility]) [address] [place] [address] HCO3 (Bld) [Moles/Vol] 25.4 mmol/L Normal 22.0-26.0 [facility] Comment on above: Performed By: #### 2 4341-0 #### PATRICIA NAVARRETE ([id number]) [facility] ([facility]) [address] [place] [address] Hematocrit Est (Bld) [Volume fraction] 26.0 % Low 41.0-52.0 [facility] Comment on above: Performed By: #### 2 4341-0 #### PATRICIA NAVARRETE ([id number]) [facility] ([facility]) [address] [place] [address] Inhaled oxygen concentration 90 % Normal [facility] Comment on above: Performed By: #### 2 4341-0 #### PATRICIA NAVARRETE ([id number]) [facility] ([facility]) [address] [place] [address] Lactate (BldA) [Moles/Vol] 3.3 mmol/L High 0.4-2.0 [facility] Comment on above: Performed By: #### 2 4341-0 #### PATRICIA NAVARRETE ([id number]) [facility] ([facility]) [address] [place] [address] Oxygen (Bld) [Partial pressure] 350 mm Hg High 85-95 [facility] Comment on above: Performed By: #### 2 4341-0 #### PATRICIA NAVARRETE ([id number]) [facility] ([facility]) [address] [place] [address] pH (Bld) 7.36 [pH] Low 7.38-7.42 [facility] Comment on above: Performed By: #### 2 4341-0 #### PATRICIA NAVARRETE ([id number]) [facility] ([facility]) [address] [place] [address] Potassium (BldA) [Moles/Vol] 4.8 mmol/L Normal 3.5-5.3 [facility] Comment on above: Performed By: #### 2 4341-0 #### PATRICIA NAVARRETE ([id number]) [facility] ([facility]) [address] [place] [address] Sodium (BldA) [Moles/Vol] 137 mmol/L Normal 136-145 [facility] Comment on above: Performed By: #### 2 4341-0 #### PATRICIA NAVARRETE ([id number]) [facility] ([facility]) [address] [place] [address] Anion gap 4 (BldA) [Moles/Vol] 15 [facility] Base excess Calc (Bld) [Moles/Vol] -2.9000 mmol/L Low -2.0 - 3.0 mmol/L [facility] Calcium.ionized (BldA) [Moles/Vol] 1.03 mmol/L Low 1.10 - 1.33 mmol/L [facility] Chloride (BldA) [Moles/Vol] 103 mmol/L 98 - 107 mmol/L [facility] CO2 (Bld) [Partial pressure] 42 mm[Hg] [facility] Glucose [Mass/Vol] 230 mg/dL High 74 - 99 mg/dL [facility] HCO3 (Bld) [Moles/Vol] 22.7 mmol/L 22.0 - 26.0 mmol/L [facility] Hematocrit Est (Bld) [Volume fraction] 26.0 % Low 41.0 - 52.0 % [facility] Inhaled oxygen concentration 80 % [facility] Lactate (BldA) [Moles/Vol] 2.9 mmol/L High 0.4 - 2.0 mmol/L [facility] Oxygen (Bld) [Partial pressure] 303 mm[Hg] High [facility] pH (Bld) 7.34 [pH] Low 7.38 - 7.42 pH [facility] Potassium (BldA) [Moles/Vol] 4.6 mmol/L 3.5 - 5.3 mmol/L [facility] Sodium (BldA) [Moles/Vol] 136 mmol/L 136 - 145 mmol/L [facility] Anion gap 4 (BldA) [Moles/Vol] 15 mmo/L Normal 10-25 [facility] Comment on above: Performed By: #### 9 3685-6 ####PATRICIA NAVARRETE ([id number])[facility] ([facility])[address] [place] [address] Base excess Calc (Bld) [Moles/Vol] -2.9000 mmol/L Low -2.0-3.0 [facility] Comment on above: Performed By: #### 9 3685-6 ####PATRICIA NAVARRETE ([id number])[facility] ([facility])[address] [place] [address] Calcium.ionized (BldA) [Moles/Vol] 1.03 mmol/L Low 1.10-1.33 [facility] Comment on above: Performed By: #### 9 3685-6 ####PATRICIA NAVARRETE ([id number])[facility] ([facility])[address] [place] [address] Chloride (BldA) [Moles/Vol] 103 mmol/L Normal 98-107 [facility] Comment on above: Performed By: #### 9 3685-6 ####PATRICIA NAVARRETE ([id number])[facility] ([facility])[address] [place] [address] CO2 (Bld) [Partial pressure] 42 mm Hg Normal 38-42 [facility] Comment on above: Performed By: #### 9 6495-6 ####PATRICIA NAVARRETE ([id number])[facility] ([facility])[address] [place] [address] Glucose [Mass/Vol] 230 mg/dL High 74-99 [facility] Comment on above: Performed By: #### 9 5175-6 ####PATRICIA NAVARRETE ([id number])[facility] ([facility])[address] [place] [address] HCO3 (Bld) [Moles/Vol] 22.7 mmol/L Normal 22.0-26.0 [facility] Comment on above: Performed By: #### 9 3685-6 ####PATRICIA NAVARRETE ([id number])[facility] ([facility])[address] [place] [address] Hematocrit Est (Bld) [Volume fraction] 26.0 % Low 41.0-52.0 [facility] Comment on above: Performed By: #### 9 3685-6 ####PATRICIA NAVARRETE ([id number])[facility] ([facility])[address] [place] [address] Inhaled oxygen concentration 80 % Normal [facility] Comment on above: Performed By: #### 9 3685-6 ####PATRICIA NAVARRETE ([id number])[facility] ([facility])[address] [place] [address] Lactate (BldA) [Moles/Vol] 2.9 mmol/L High 0.4-2.0 [facility] Comment on above: Performed By: #### 9 3685-6 ####PATRICIA NAVARRETE ([id number])[facility] ([facility])[address] [place] [address] Oxygen (Bld) [Partial pressure] 303 mm Hg High 85-95 [facility] Comment on above: Performed By: #### 9 3685-6 ####PATRICIA NAVARRETE ([id number])[facility] ([facility])[address] [place] [address] pH (Bld) 7.34 [pH] Low 7.38-7.42 [facility] Comment on above: Performed By: #### 9 3685-6 ####PATRICIA NAVARRETE ([id number])[facility] ([facility])[address] [place] [address] Potassium (BldA) [Moles/Vol] 4.6 mmol/L Normal 3.5-5.3 [facility] Comment on above: Performed By: #### 9 3685-6 ####PATRICIA NAVARRETE ([id number])[facility] ([facility])[address] [place] [address] Sodium (BldA) [Moles/Vol] 136 mmol/L Normal 136-145 [facility] Comment on above: Performed By: #### 9 3685-6 ####PATRICIA NAVARRETE ([id number])[facility] ([facility])[address] [place] [address] Anion gap 4 (BldA) [Moles/Vol] 16 [facility] Base excess Calc (Bld) [Moles/Vol] -4.4000 mmol/L Low -2.0 - 3.0 mmol/L [facility] Calcium.ionized (BldA) [Moles/Vol] 1.11 mmol/L 1.10 - 1.33 mmol/L [facility] Chloride (BldA) [Moles/Vol] 102 mmol/L 98 - 107 mmol/L [facility] CO2 (Bld) [Partial pressure] 39 mm[Hg] [facility] Glucose [Mass/Vol] 276 mg/dL High 74 - 99 mg/dL [facility] HCO3 (Bld) [Moles/Vol] 21.0 mmol/L Low 22.0 - 26.0 mmol/L [facility] Hematocrit Est (Bld) [Volume fraction] 34.0 % Low 41.0 - 52.0 % [facility] Inhaled oxygen concentration 100 % [facility] Lactate (BldA) [Moles/Vol] 2.9 mmol/L High 0.4 - 2.0 mmol/L [facility] Oxygen (Bld) [Partial pressure] 170 mm[Hg] High [facility] pH (Bld) 7.34 [pH] Low 7.38 - 7.42 pH [facility] Potassium (BldA) [Moles/Vol] 3.1 mmol/L Low 3.5 - 5.3 mmol/L [facility] Sodium (BldA) [Moles/Vol] 136 mmol/L 136 - 145 mmol/L [facility] Anion gap 4 (BldA) [Moles/Vol] 16 mmo/L Normal 10-25 [facility] Comment on above: Performed By: #### 9 3685-6 ####PATRICIA NAVARRETE ([id number])[facility] ([facility])[address] [place] [address] Base excess Calc (Bld) [Moles/Vol] -4.4000 mmol/L Low -2.0-3.0 [facility] Comment on above: Performed By: #### 9 3685-6 ####PATRICIA NAVARRETE ([id number])[facility] ([facility])[address] [place] [address] Calcium.ionized (BldA) [Moles/Vol] 1.11 mmol/L Normal 1.10-1.33 [facility] Comment on above: Performed By: #### 9 3685-6 ####PATRICIA NAVARRETE ([id number])[facility] ([facility])[address] [place] [address] Chloride (BldA) [Moles/Vol] 102 mmol/L Normal 98-107 [facility] Comment on above: Performed By: #### 9 3685-6 ####PATRICIA NAVARRETE ([id number])[facility] ([facility])[address] [place] [address] CO2 (Bld) [Partial pressure] 39 mm Hg Normal 38-42 [facility] Comment on above: Performed By: #### 9 3685-6 ####PATRICIA NAVARRETE ([id number])[facility] ([facility])[address] [place] [address] Glucose [Mass/Vol] 276 mg/dL High 74-99 [facility] Comment on above: Performed By: #### 9 3685-6 ####PATRICIA NAVARRETE ([id number])[facility] ([facility])[address] [place] [address] HCO3 (Bld) [Moles/Vol] 21.0 mmol/L Low 22.0-26.0 [facility] Comment on above: Performed By: #### 9 3685-6 ####PATRICIA NAVARRETE ([id number])[facility] ([facility])[address] [place] [address] Hematocrit Est (Bld) [Volume fraction] 34.0 % Low 41.0-52.0 [facility] Comment on above: Performed By: #### 9 3685-6 ####PATRICIA NAVARRETE ([id number])[facility] ([facility])[address] [place] [address] Inhaled oxygen concentration 100 % Normal [facility] Comment on above: Performed By: #### 9 0125-6 ####PATRICIA NAVARRETE ([id number])[facility] ([facility])[address] [place] [address] Lactate (BldA) [Moles/Vol] 2.9 mmol/L High 0.4-2.0 [facility] Comment on above: Performed By: #### 9 3685-6 ####PATRICIA NAVARRETE ([id number])[facility] ([facility])[address] [place] [address] Oxygen (Bld) [Partial pressure] 170 mm Hg High 85-95 [facility] Comment on above: Performed By: #### 9 3685-6 ####PATRICIA NAVARRETE ([id number])[facility] ([facility])[address] [place] [address] pH (Bld) 7.34 [pH] Low 7.38-7.42 [facility] Comment on above: Performed By: #### 9 3685-6 ####PATRICIA NAVARRETE ([id number])[facility] ([facility])[address] [place] [address] Potassium (BldA) [Moles/Vol] 3.1 mmol/L Low 3.5-5.3 [facility] Comment on above: Performed By: #### 9 3685-6 ####PATRICIA NAVARRETE ([id number])[facility] ([facility])[address] [place] [address] Sodium (BldA) [Moles/Vol] 136 mmol/L Normal 136-145 [facility] Comment on above: Performed By: #### 9 3685-6 ####PATRICIA NAVARRETE ([id number])[facility] ([facility])[address] [place] [address] Anion gap 4 (BldA) [Moles/Vol] 12 [facility] Base excess Calc (Bld) [Moles/Vol] -0.4000 mmol/L -2.0 - 3.0 mmol/L [facility] Calcium.ionized (BldA) [Moles/Vol] 1.21 mmol/L 1.10 - 1.33 mmol/L [facility] Chloride (BldA) [Moles/Vol] 103 mmol/L 98 - 107 mmol/L [facility] CO2 (Bld) [Partial pressure] 51 mm[Hg] High [facility] Glucose [Mass/Vol] 168 mg/dL High 74 - 99 mg/dL [facility] HCO3 (Bld) [Moles/Vol] 26.3 mmol/L High 22.0 - 26.0 mmol/L [facility] Hematocrit Est (Bld) [Volume fraction] 36.0 % Low 41.0 - 52.0 % [facility] Inhaled oxygen concentration 100 % [facility] Lactate (BldA) [Moles/Vol] 1.6 mmol/L 0.4 - 2.0 mmol/L [facility] Oxygen (Bld) [Partial pressure] 397 mm[Hg] High [facility] pH (Bld) 7.32 [pH] Low 7.38 - 7.42 pH [facility] Potassium (BldA) [Moles/Vol] 3.9 mmol/L 3.5 - 5.3 mmol/L [facility] Sodium (BldA) [Moles/Vol] 137 mmol/L 136 - 145 mmol/L [facility] Anion gap 4 (BldA) [Moles/Vol] 12 mmo/L Normal 10-25 [facility] Comment on above: Performed By: #### 9 3685-6 ####PATRICIA NAVARRETE ([id number])[facility] ([facility])[address] [place] [address] Base excess Calc (Bld) [Moles/Vol] -0.4000 mmol/L Normal -2.0-3.0 [facility] Comment on above: Performed By: #### 9 3685-6 ####PATRICIA NAVARRETE ([id number])[facility] ([facility])[address] [place] [address] Calcium.ionized (BldA) [Moles/Vol] 1.21 mmol/L Normal 1.10-1.33 [facility] Comment on above: Performed By: #### 9 3685-6 ####PATRICIA NAVARRETE ([id number])[facility] ([facility])[address] [place] [address] Chloride (BldA) [Moles/Vol] 103 mmol/L Normal 98-107 [facility] Comment on above: Performed By: #### 9 3685-6 ####PATRICIA NAVARRETE ([id number])[facility] ([facility])[address] [place] [address] CO2 (Bld) [Partial pressure] 51 mm Hg High 38-42 [facility] Comment on above: Performed By: #### 9 3685-6 ####PATRICIA NAVARRETE ([id number])[facility] ([facility])[address] [place] [address] Glucose [Mass/Vol] 168 mg/dL High 74-99 [facility] Comment on above: Performed By: #### 9 3685-6 ####PATRICIA NAVARRETE ([id number])[facility] ([facility])[address] [place] [address] HCO3 (Bld) [Moles/Vol] 26.3 mmol/L High 22.0-26.0 [facility] Comment on above: Performed By: #### 9 3685-6 ####PATRICIA NAVARRETE ([id number])[facility] ([facility])[address] [place] [address] Hematocrit Est (Bld) [Volume fraction] 36.0 % Low 41.0-52.0 [facility] Comment on above: Performed By: #### 9 3685-6 ####PATRICIA NAVARRETE ([id number])[facility] ([facility])[address] [place] [address] Inhaled oxygen concentration 100 % Normal [facility] Comment on above: Performed By: #### 9 3685-6 ####PATRICIA NAVARRETE ([id number])[facility] ([facility])[address] [place] [address] Lactate (BldA) [Moles/Vol] 1.6 mmol/L Normal 0.4-2.0 [facility] Comment on above: Performed By: #### 9 3685-6 ####PATRICIA NAVARRETE ([id number])[facility] ([facility])[address] [place] [address] Oxygen (Bld) [Partial pressure] 397 mm Hg High 85-95 [facility] Comment on above: Performed By: #### 9 3685-6 ####PATRICIA NAVARRETE ([id number])[facility] ([facility])[address] [place] [address] pH (Bld) 7.32 [pH] Low 7.38-7.42 [facility] Comment on above: Performed By: #### 9 3685-6 ####PATRICIA NAVARRETE ([id number])[facility] ([facility])[address] [place] [address] Potassium (BldA) [Moles/Vol] 3.9 mmol/L Normal 3.5-5.3 [facility] Comment on above: Performed By: #### 9 3685-6 ####PATRICIA NAVARRETE ([id number])[facility] ([facility])[address] [place] [address] Sodium (BldA) [Moles/Vol] 137 mmol/L Normal 136-145 [facility] Comment on above: Performed By: #### 9 3685-6 ####PATRICIA NAVARRETE ([id number])[facility] ([facility])[address] [place] [address] Glucose Test strip manual (B ld) [Mass/Vol]on 09-13-2023 Glucose [Mass/Vol] 197 mg/dL High 74 - 99 mg/dL [facility] Interpretation and review of laboratory results Abnormal [facility] Glucose [Mass/Vol] 197 mg/dL High 74-99 [facility] Comment on above: Performed By: #### 3 4529-8 #### PATRICIA NAVARRETE ([id number]) [facility] ([facility]) [address] [place] [address] Glucose [Mass/Vol] 220 mg/dL High 74 - 99 mg/dL [facility] Interpretation and review of laboratory results Abnormal [facility] Glucose [Mass/Vol] 220 mg/dL High 74-99 [facility] Comment on above: Performed By: #### 3 4529-8 #### PATRICIA NAVARRETE ([id number]) [facility] ([facility]) [address] [place] [address] Glucose [Mass/Vol] 139 mg/dL High 74 - 99 mg/dL [facility] Interpretation and review of laboratory results Abnormal [facility] Glucose [Mass/Vol] 139 mg/dL High 74-99 [facility] Comment on above: Performed By: #### 5 8410-2 #### PATRICIA NAVARRETE ([id number]) [facility] ([facility]) [address] [id number] Laboratory - Chemistry and C hemistry - challengeon 09-13-2023 Oxyhemoglobin (BldA) [Mass fraction] 97.4 % 94.0 - 98.0 % [facility] Oxyhemoglobin (BldA) [Mass fraction] 97.2 % 94.0 - 98.0 % [facility] Oxyhemoglobin (BldA) [Mass fraction] 97.8 % 94.0 - 98.0 % [facility] Oxyhemoglobin (BldA) [Mass fraction] 97.5 % 94.0 - 98.0 % [facility] Oxyhemoglobin (BldA) [Mass fraction] 97.1 % 94.0 - 98.0 % [facility] Oxyhemoglobin (BldA) [Mass fraction] 96.8 % 94.0 - 98.0 % [facility] Laboratory - Hematology and Cell countson 09-13-2023 Hemoglobin (Bld) [Mass/Vol] 9.5 g/dL Low 13.5 - 17.5 g/dL [facility] Hemoglobin (Bld) [Mass/Vol] 8.4 g/dL Low 13.5 - 17.5 g/dL [facility] Hemoglobin (Bld) [Mass/Vol] 8.8 g/dL Low 13.5 - 17.5 g/dL [facility] Hemoglobin (Bld) [Mass/Vol] 8.8 g/dL Low 13.5 - 17.5 g/dL [facility] Hemoglobin (Bld) [Mass/Vol] 11.2 g/dL Low 13.5 - 17.5 g/dL [facility] Hemoglobin (Bld) [Mass/Vol] 12.1 g/dL Low 13.5 - 17.5 g/dL [facility] Magnesiumon 09-13-2023 Magnesium [Mass/Vol] 2.55 mg/dL High 1.60 - 2.40 mg/dL [facility] Magnesium [Mass/Vol] 2.55 mg/dL High 1.60-2.40 [facility] Comment on above: Order Comment: On ad pinky to ICU Performed By: #### 5 8410-2 #### PATRICIA NAVARRETE ([id number]) [facility] ([facility]) [address] [place] [address] Magnesium [Mass/Vol] 2.88 mg/dL High 1.60 - 2.40 mg/dL [facility] Magnesium [Mass/Vol] 2.88 mg/dL High 1.60-2.40 [facility] Comment on above: Performed By: #### 2 4341-0 #### PATRICIA NAVARRETE ([id number]) [facility] ([facility]) [address] [place] [address] Magnesium [Mass/Vol]on 09-13 Interpretation and review of laboratory results Abnormal [facility] No Panel Informationon 09-13 [facility] Interpretation and review of laboratory results Abnormal [facility] Interpretation and review of laboratory results Abnormal [facility] Interpretation and review of laboratory results Abnormal [facility] Interpretation and review of laboratory results Abnormal [facility] Interpretation and review of laboratory results Abnormal [facility] Interpretation and review of laboratory results Abnormal [facility] Interpretation and review of laboratory results Abnormal [facility] Interpretation and review of laboratory results Abnormal [facility] PT Coag (PPP) [Time]on 09-13 INR Coag (PPP) [Relative time] 1.6 {INR} High 0.9 - 1.1 [facility] INR Coag (PPP) [Relative time] 1.6 High 0.9-1.1 [facility] Comment on above: Performed By: #### 2 4341-0 #### PATRICIA NAVARRETE ([id number]) [facility] ([facility]) [address] [place] [address] PT and aPTT panel Coag (PPP) on 09-13-2023 aPTT Coag (PPP) [Time] 30 s [facility] INR Coag (PPP) [Relative time] 1.3 {INR} High 0.9 - 1.1 [facility] Interpretation and review of laboratory results Abnormal [facility] PT Coag (PPP) [Time] 14.9 s High [facility] aPTT Coag (PPP) [Time] 30 s Normal 27-38 [facility] Comment on above: Order Comment: On ad pinky to ICUThe APTT is no longer used for monitoring Unfractionated Heparin Therapy. For monitoring Heparin Therapy, use the Heparin Assay. Performed By: #### 5 8410-2 #### PATRICIA NAVARRETE ([id number]) [facility] ([facility]) [address] [place] [address] INR Coag (PPP) [Relative time] 1.3 High 0.9-1.1 [facility] Comment on above: Order Comment: On ad pinky to ICUThe APTT is no longer used for monitoring Unfractionated Heparin Therapy. For monitoring Heparin Therapy, use the Heparin Assay. Performed By: #### 5 8410-2 #### PATRICIA NAVARRETE ([id number]) [facility] ([facility]) [address] [place] [address] PT Coag (PPP) [Time] 14.9 s High 9.8-12.8 [facility] Comment on above: Order Comment: On ad pinky to ICUThe APTT is no longer used for monitoring Unfractionated Heparin Therapy. For monitoring Heparin Therapy, use the Heparin Assay. Performed By: #### 5 8410-2 #### PATRICIA NAVARRETE ([id number]) [facility] ([facility]) [address] [place] [address] Platelets Auto (Bld) [#/Vol] on 09-13-2023 Interpretation and review of laboratory results Abnormal [facility] Platelets (Bld) [#/Vol] 130 10*3/uL Low [facility] Platelets (Bld) [#/Vol] 130 x10*3/uL Low 150-450 [facility] Comment on above: Performed By: #### 2 4341-0 #### PATRICIA NAVARRETE ([id number]) [facility] ([facility]) [address] [place] [address] Protime-INRon 09-13-2023 PT Coag (PPP) [Time] 17.7 s High [facility] Renal function 2000 panelon 09-13-2023 Albumin BCP dye [Mass/Vol] 3.5 g/dL 3.4 - 5.0 g/dL [facility] Anion gap [Moles/Vol] 12 mmol/L 10 - 2 0 mmol/L [facility] Calcium [Mass/Vol] 8.8 mg/dL 8.6 - 10. 3 mg/dL [facility] Chloride [Moles/Vol] 108 mmol/L High 98 - 10 7 mmol/L [facility] CO2 [Moles/Vol] 23 mmol/L 21 - 32 mmol/L [facility] Creatinine [Mass/Vol] 1.66 mg/dL High 0.50 - 1.30 mg/dL [facility] GFR/1.73 sq M.predicted among non-blacks MDRD (S/P/Bld) [Vol rate/Area] 43 mL/min/{1.73_m2} Low - PINF [facility] Glucose [Mass/Vol] 147 mg/dL High 74 - 99 mg/dL [facility] Phosphate [Mass/Vol] 2.3 mg/dL Low 2.5 - 4 .9 mg/dL [facility] Potassium [Moles/Vol] 3.9 mmol/L 3.5 - 5.3 mmol/L [facility] Sodium [Moles/Vol] 139 mmol/L 136 - 145 mmol/L [facility] Urea nitrogen [Mass/Vol] 24 mg/dL High 6 - 23 mg/dL [facility] Albumin BCP dye [Mass/Vol] 3.5 g/dL Normal 3.4-5.0 [facility] Comment on above: Order Comment: On ad pinky to ICU Performed By: #### 5 8410-2 #### PATRICIA NAVARRETE ([id number]) [facility] ([facility]) [address] [place] [address] Anion gap [Moles/Vol] 12 mmol/L Normal 10-20 [facility] Comment on above: Order Comment: On ad pinky to ICU Performed By: #### 5 8410-2 #### PATRICIA NAVARRETE ([id number]) [facility] ([facility]) [address] [place] [address] Calcium [Mass/Vol] 8.8 mg/dL Normal 8.6-10.3 [facility] Comment on above: Order Comment: On ad pinky to ICU Performed By: #### 5 8410-2 #### PATRICIA NAVARRETE ([id number]) [facility] ([facility]) [address] [place] [address] Chloride [Moles/Vol] 108 mmol/L High 98-107 [facility] Comment on above: Order Comment: On ad pinky to ICU Performed By: #### 5 8410-2 #### PATRICIA NAVARRETE ([id number]) [facility] ([facility]) [address] [place] [address] CO2 [Moles/Vol] 23 mmol/L Normal 21-[address] [facility] Comment on above: Order Comment: On ad pinky to ICU Performed By: #### 5 8410-2 #### PATRICIA NAVARRETE ([id number]) [facility] ([facility]) [address] [place] [address] Creatinine [Mass/Vol] 1.66 mg/dL High 0.50-1.30 [facility] Comment on above: Order Comment: On ad pinky to ICU Performed By: #### 5 8410-2 #### PATRICIA NAVARRETE ([id number]) [facility] ([facility]) [address] [place] [address] Glomerular filtration rate/1.73 sq M.predicted 43 mL/min/1.73m*2 Low >60 [facility] Comment on above: Order Comment: On ad pinky to ICU Result Comment: Calc ulations of estimated GFR are performed using the 2020 CKD-EPI Study Refit equation without the race variable for the IDMS-Traceable creatinine methods. https://jasn.asnjournals.org/content/early/ASN.684905 0018 Performed By: #### 5 8410-2 #### PATRICIA NAVARRETE ([id number]) [facility] ([facility]) [address] [place] [address] Glucose [Mass/Vol] 147 mg/dL High 74-99 [facility] Comment on above: Order Comment: On ad pinky to ICU Performed By: #### 5 8410-2 #### PATRICIA NAVARRETE ([id number]) [facility] ([facility]) [address] [place] [address] Phosphate [Mass/Vol] 2.3 mg/dL Low 2.5-4.9 [facility] Comment on above: Order Comment: On ad pinky to ICU Result Comment: MILD HEMOLYSIS DETECTED. The result may be falsely elevated due to hemolysis or other interferents. Clinical correlation is recommended. Repeat testing may be considered. The performance characteristics of phosphorus testing in heparinized plasma have been validated by the individual laboratory site where testing is performed. Testing on heparinized plasma is not approved by the FDA; however, such approval is not necessary. Performed By: #### 5 8410-2 #### PATRICIA NAVARRETE ([id number]) [facility] ([facility]) [address] [place] [address] Potassium [Moles/Vol] 3.9 mmol/L Normal 3.5-5.3 [facility] Comment on above: Order Comment: On ad pinky to ICU Result Comment: MILD HEMOLYSIS DETECTED. The result may be falsely elevated due to hemolysis or other interferents. Clinical correlation is recommended. Repeat testing may be considered. Performed By: #### 5 8410-2 #### PATRICIA NAVARRETE ([id number]) [facility] ([facility]) [address] [place] [address] Sodium [Moles/Vol] 139 mmol/L Normal 136-145 [facility] Comment on above: Order Comment: On ad pinky to ICU Performed By: #### 5 8410-2 #### PATRICIA NAVARRETE ([id number]) [facility] ([facility]) [address] [place] [address] Urea nitrogen [Mass/Vol] 24 mg/dL High 6-23 [facility] Comment on above: Order Comment: On ad pinky to ICU Performed By: #### 5 8410-2 #### PATRICIA MILLARDFRI ([id number]) [facility]) [address] [place] [address] XR CHEST 1 VIEWon 09-13-2023 XR CHEST 1 VIEW Interpreted By: Jermain St, STUDY: XR CHEST 1 VIEW; 09/13/2023 1:27 pm INDICATION: Signs/Symptoms:S/p CABG. COMPARISON: None. ACCESSION NUMBER(S): [id number] ORDERING CLINICIAN: MARY GARCIA FINDINGS: CARDIOMEDIASTINAL SILHOUETTE AND VASCULATURE: Cardiac size: Upper limits of normal considering a shallow inspiration. Status post median sternotomy and left atrial clipping. Aortic shadow: Within normal limits. Mediastinal contours: Within normal limits. Pulmonary vasculature: The central vasculature is unremarkable LUNGS: There is mild interstitial prominence in the right perihilar region and left mid and upper lung. This is in part due to accentuation of interstitial and vascular markings from a shallow inspiration, but mild congestion may be present. There also appears to be several bands of left mid and lower lung atelectasis. ABDOMEN AND OTHER FINDINGS: An endotracheal tube is in satisfactory position. An NG catheter extends to the body of the stomach. Right central line extends to the brachiocephalic vein. BONES: No acute osseous changes. IMPRESSION: 1. Probable mild congestion and atelectasis. Signed by: Jermain Philip 09/13/2023 1:53 PM Dictation workstation: [id number] Normal [facility] XR Chest Single viewon 09-13 [facility] MM[facility]AL [facility] MM[facility] Work Phone: Radiology Study observation (narrative) [facility] Work Phone: XR Chest Single viewOrdered By: Jermain Philip on 09-13-2023 [facility] Work Phone: aPTTon 09-13-2023 aPTT Coag (PPP) [Time] 32 s [facility] aPTT Coag (PPP) [Time]on Interpretation and review of laboratory results [facility] Blood type and Indirect anti body screen panel (Bld)on 09-10-2023 Blood group antibody screen Ql Negative Normal [facility] Comment on above: Performed By: #### 3 4532-2 ####PATRICIA NAVARRETE ([id number])[facility] ([facility])[address] [facility] [place] [address] [place] CBC panel Auto (Bld)on 09-10 Erythrocyte distribution width (RBC) [Ratio] 13.1 % Normal 11.5-14.5 [facility] Comment on above: Performed By: #### 5 8410-2 #### PATRICIA NAVARRETE ([id number]) [facility] ([facility]) [address] [place] [address] Hematocrit (Bld) [Volume fraction] 38.7 % Low 41.0-52.0 [facility] Comment on above: Performed By: #### 5 8410-2 #### PATRICIA NAVARRETE ([id number]) [facility]) [address] [place] [address] Hemoglobin (Bld) [Mass/Vol] 13.2 g/dL Low 13.5-17.5 [facility] Comment on above: Performed By: #### 5 8410-2 #### PATRICIA NAVARRETE ([id number]) [facility]) [address] [place] [address] MCH (RBC) [Entitic mass] 34.5 pg High 26.0-34.0 [facility] Comment on above: Performed By: #### 5 8410-2 #### PATRCIIA NAVARRETE ([id number]) [facility]) [address] [place] [address] MCHC (RBC) [Mass/Vol] 34.1 g/dL Normal 32.0-36.0 [facility] Comment on above: Performed By: #### 5 8410-2 #### PATRICIA NAVARRETE ([id number]) [facility] ([facility]) [address] [place] [address] MCV (RBC) [Entitic vol] 101 fL High 80-100 [facility] Comment on above: Performed By: #### 5 8410-2 #### PATRICIA NAVARRETE ([id number]) [facility] ([facility]) [address] [place] [address] Nucleated RBC/100 WBC (Bld) [Ratio] 0.0 /100 WBCs Normal 0.0-0.0 [facility] Comment on above: Performed By: #### 5 8410-2 #### PATRICIA NAVARRETE ([id number]) [facility] ([facility]) [address] [place] [address] Platelets (Bld) [#/Vol] 230 x10*3/uL Normal 150-450 [facility] Comment on above: Performed By: #### 5 8410-2 #### PATRICIA NAVARRETE ([id number]) [facility] ([facility]) [address] [place] [address] RBC (Bld) [#/Vol] 3.83 x10*6/uL Low 4.50-5.90 [facility] Comment on above: Performed By: #### 5 8410-2 #### PATRICIA NAVARRETE ([id number]) [facility] ([facility]) [address] [place] [address] WBC (Bld) [#/Vol] 8.5 x10*3/uL Normal 4.4-11.3 [facility] Comment on above: Performed By: #### 5 8410-2 #### PATRICIA NAVARRETE ([id number]) [facility] ([facility]) [address] [place] [address] CT CHEST WO IV CONTRASTon CT CHEST WO IV CONTRAST Interpreted By: Ancelmo Torres, STUDY: CT CHEST WO IV CONTRAST; 09/10/2023 10:16 am INDICATION: Signs/Symptoms:Pre Op CABG. COMPARISON: None. ACCESSION NUMBER(S): [id number] ORDERING CLINICIAN: MARY GARCIA TECHNIQUE: Helical data acquisition of the chest was obtained without IV contrast material. Images were reformatted in axial, coronal, and sagittal planes. FINDINGS: LUNGS AND AIRWAYS: Mild diffuse bronchial wall thickening. Mild patchy bibasilar infiltrates and/or atelectasis. Some areas of scarring/atelectasis the lung bases. A few subcentimeter lung nodules up to 7 mm right lower lobe image 167. Small calcified anterior right lung nodule likely granuloma. Focal consolidation/atelectasis in the lingula up to 2 cm image 197. Several additional small calcified lung nodules likely granulomas. No pleural effusions. MEDIASTINUM AND LIZ, LOWER NECK AND AXILLA: Prominent heterogeneous possibly multinodular thyroid gland particularly left thyroid lobe. Asymmetric enlargement left thyroid lobe compared to right partially imaged. Prominent paratracheal and AP window nodes up to 11 mm short axis and enlarged subcarinal nodes up to 2.1 cm short axis. There are some partially calcified mediastinal and left hilar nodes likely sequela of granulomatous disease. Small coarse calcification appearing to involve the right lateral wall of the mid to upper esophagus image 74 of uncertain significance. HEART AND VESSELS: The thoracic aorta is of normal course and caliber. Moderate vascular calcifications particularly involving the aortic arch and descending segment. Mild calcification at the origin of the left common carotid artery. There is also moderate calcifications at the origin of the left vertebral artery arising from the proximal aspect of the left subclavian artery. Mild calcification involving the subclavian arteries. Main pulmonary artery and its branches are mildly prominent in caliber. Marked coronary artery calcifications are seen. The study is not optimized for evaluation of coronary arteries. The heart appears normal in size. Trace pericardial effusion. UPPER ABDOMEN: Numerous small dependent gallstones. CHEST WALL AND OSSEOUS STRUCTURES: Bones appear demineralized. A few small sclerotic foci superior endplates likely related to degenerative change or benign process such as bone islands. Marked disc space narrowing with endplate irregularity and vacuum disc at approximately T12-L1 probably relating to sequela of marked degenerative disc disease and degenerative endplate changes. Similar but slightly less extensive findings at T9-T10 and T2-T3. Partially calcified disc protrusions at T7-T8 and T8-T9 causing moderate central canal stenosis and also at least mild to moderate central canal stenosis at T9-T10 and moderate central canal stenosis at T12-L1 as well as marked lateral recess and right neural foraminal stenosis due to partially calcified disc protrusion/osteophyte complex. Multilevel degenerative changes visualized spine. IMPRESSION: 1. Subcentimeter lung nodules as described for which follow-up recommended per Fleischner criteria. 2. Mild patchy bibasilar infiltrates/atelectasis. Focal consolidation/atelectasis in the lingula. 3. Moderate mediastinal adenopathy particularly in the subcarinal region. Clinical correlation and follow-up advised. Correlation with PET-CT may be considered for further assessment. 4. Prominent heterogeneous possibly multinodular thyroid gland with asymmetric enlarged left thyroid lobe. Consider ultrasound for further assessment. 5. Mild focal calcification involving the wall of the mid to upper esophagus of uncertain significance. 6. Atherosclerotic vascular disease as above. 7. Cholelithiasis. 8. Multilevel degenerative changes and partially calcified disc protrusions visualized thoracic spine with multilevel moderate central canal stenosis as well as marked right lateral recess and right neural foraminal stenosis at T12-L1. 9. Additional findings as above. MACRO: Incidental Finding: Multiple solid non-calcified pulmonary nodules measuring up to 6-8 mm. (-YCF-) Instructions: Consider follow up non contrast chest CT at 3-6 months, then consider CT chest at 18-24 months. (Jacob Merino et al., Guidelines for management of incidental pulmonary nodules detected on CT images: From the Fleischner Society 2017, Radiology. 2017 Roland;284 (1):228-243.) [email or web address].ACR.IF.3 Signed by: Ancelmo Torres 09/13/2023 11:51 AM Dictation workstation: [id number] Normal [facility] Comprehensive metabolic 2000 panelon 09-10-2023 Albumin BCP dye [Mass/Vol] 4.1 g/dL Normal 3.4-5.0 [facility] Comment on above: Performed By: #### 2 4323-8 #### PATRICIA NAVARRETE ([id number]) [facility] ([facility]) [address] [place] [address] ALP [Catalytic activity/Vol] 49 U/L Normal 33-136 [facility] Comment on above: Performed By: #### 2 4323-8 #### PATRICIA NAVARRETE ([id number]) [facility] ([facility]) [address] [place] [address] ALT With P-5'-P [Catalytic activity/Vol] 17 U/L Normal 10-52 [facility] Comment on above: Result Comment: Ping ents treated with Sulfasalazine may generate falsely decreased results for ALT. Performed By: #### 2 4323-8 #### PATRICIA NAVARRETE ([id number]) [facility] ([facility]) [address] [place] [address] Anion gap [Moles/Vol] 13 mmol/L Normal 10-20 [facility] Comment on above: Performed By: #### 2 4323-8 #### PATRICIA NAVARRETE ([id number]) [facility] ([facility]) [address] [place] [address] AST With P-5'-P [Catalytic activity/Vol] 16 U/L Normal 9-39 [facility] Comment on above: Performed By: #### 2 4323-8 #### PATRICIA NAVARRETE ([id number]) [facility] ([facility]) [address] [place] [address] Bilirubin [Mass/Vol] 1.6 mg/dL High 0.0-1.2 [facility] Comment on above: Performed By: #### 2 4323-8 #### PATRICIA NAVARRETE ([id number]) [facility] ([facility]) [address] [place] [address] Calcium [Mass/Vol] 9.7 mg/dL Normal 8.6-10.3 [facility] Comment on above: Performed By: #### 2 4323-8 #### PATRICIA NAVARRETE ([id number]) [facility] ([facility]) [address] [place] [address] Chloride [Moles/Vol] 104 mmol/L Normal 98-107 [facility] Comment on above: Performed By: #### 2 4323-8 #### PATRICIA NAVARRETE ([id number]) [facility] ([facility]) [address] [place] [address] CO2 [Moles/Vol] 28 mmol/L Normal 21-[address] [facility] Comment on above: Performed By: #### 2 4323-8 #### PATRICIA MILLARDFRI ([id number]) [facility] ([facility]) [address] [place] [address] Creatinine [Mass/Vol] 1.67 mg/dL High 0.50-1.30 [facility] Comment on above: Performed By: #### 2 4323-8 #### PATRICIA MILLARDFRI ([id number]) [facility] ([facility]) [address] [place] [address] Glomerular filtration rate/1.73 sq M.predicted 42 mL/min/1.73m*2 Low >60 [facility] Comment on above: Result Comment: Calc ulations of estimated GFR are performed using the 2020 CKD-EPI Study Refit equation without the race variable for the IDMS-Traceable creatinine methods. https://jasn.asnjournals.org/content/early//ASN.540253 1049 Performed By: #### 2 4323-8 #### PATRICIA MILLARDFRI ([id number]) [facility] ([facility]) [address] [place] [address] Glucose [Mass/Vol] 149 mg/dL High 74-99 [facility] Comment on above: Performed By: #### 2 4323-8 #### PATRICIA MILLARDFRI ([id number]) [facility] ([facility]) [address] [place] [address] Potassium [Moles/Vol] 4.5 mmol/L Normal 3.5-5.3 [facility] Comment on above: Performed By: #### 2 4323-8 #### PATRICIA MILLARDFRI ([id number]) [facility] ([facility]) [address] [place] [address] Protein [Mass/Vol] 6.8 g/dL Normal 6.4-8.2 [facility] Comment on above: Performed By: #### 2 4323-8 #### PATRICIA NAVARRETE ([id number]) [facility] ([facility]) [address] [place] [address] Sodium [Moles/Vol] 140 mmol/L Normal 136-145 [facility] Comment on above: Performed By: #### 2 4323-8 #### PATRICIA NAVARRETE ([id number]) [facility] ([facility]) [address] [place] [address] Urea nitrogen [Mass/Vol] 26 mg/dL High 6-23 [facility] Comment on above: Performed By: #### 2 4323-8 #### PATRICIA NAVARRETE ([id number]) [facility] ([facility]) [address] [place] [address] Fibrinogenon 09-10-2023 Fibrinogen Coag (PPP) [Mass/Vol] 342 mg/dL Normal 200-400 [facility] Comment on above: Performed By: #### 3 255-7 #### PATRICIA NAVARRETE ([id number]) [facility] ([facility]) [address] [place] [address] Gas and Carbon monoxide pane l (BldA)on 09-10-2023 Arterial patency Wrist artery --pre arterial puncture Positive [facility] Base excess Calc (Bld) [Moles/Vol] -0.4000 mmol/L -2.0 - 3.0 mmol/L [facility] Carboxyhemoglobin (BldA) [Mass fraction] 2.0 % [facility] Comment on above: Ref Values Non-Smokers 0.5-1.5% Smokers 0.5-10.0% CO2 (Bld) [Partial pressure] 38 mm[Hg] [facility] Deoxyhemoglobin (BldA) [Mass fraction] 2.5 % 0.0 - 5.0 % [facility] HCO3 (Bld) [Moles/Vol] 24.1 mmol/L 22.0 - 26.0 mmol/L [facility] Hemoglobin (Bld) [Mass/Vol] 12.9 g/dL Low 13.5 - 17.5 g/dL [facility] Inhaled oxygen concentration 21 % [facility] Interpretation and review of laboratory results Abnormal [facility] Methemoglobin (BldA) [Mass fraction] 0.7 % 0.0 - 1.5 % [facility] Oxygen (Bld) [Partial pressure] 82 mm[Hg] Low [facility] Oxyhemoglobin (BldA) [Mass fraction] 94.8 % 94.0 - 98.0 % [facility] pH (Bld) 7.41 [pH] 7.38 - 7.42 pH [facility] Site of Arterial Puncture RRA [facility] Arterial patency Wrist artery --pre arterial puncture Positive Normal [facility] Comment on above: Performed By: #### 2 4341-0 #### PATRICIA NAVARRETE ([id number]) [facility] ([facility]) [address] [place] [address] Base excess Calc (Bld) [Moles/Vol] -0.4000 mmol/L Normal -2.0-3.0 [facility] Comment on above: Performed By: #### 2 434-0 #### PATRICIA NAVARRETE ([id number]) [facility] ([facility]) [address] [place] [address] Carboxyhemoglobin (BldA) [Mass fraction] 2.0 % Normal [facility] Comment on above: Result Comment: Ref Values Non-Smokers 0.5-1.5% Smokers 0.5-10.0% Performed By: #### 2 4341-0 #### PATRICIA NAVARRETE ([id number]) [facility] ([facility]) [address] [place] [address] CO2 (Bld) [Partial pressure] 38 mm Hg Normal 38-42 [facility] Comment on above: Performed By: #### 2 4341-0 #### PATRICIA NAVARRETE ([id number]) [facility] ([facility]) [address] [place] [address] Deoxyhemoglobin (BldA) [Mass fraction] 2.5 % Normal 0.0-5.0 [facility] Comment on above: Performed By: #### 2 4341-0 #### PATRICIA NAVARRETE ([id number]) [facility] ([facility]) [address] [place] [address] HCO3 (Bld) [Moles/Vol] 24.1 mmol/L Normal 22.0-26.0 [facility] Comment on above: Performed By: #### 2 4341-0 #### PATRICIA NAVARRETE ([id number]) [facility] ([facility]) [address] [place] [address] Hemoglobin (Bld) [Mass/Vol] 12.9 g/dL Low 13.5-17.5 [facility] Comment on above: Performed By: #### 2 4341-0 #### PATRICIA NAVARRETE ([id number]) [facility] ([facility]) [address] [place] [address] Inhaled oxygen concentration 21 % Normal [facility] Comment on above: Performed By: #### 2 434-0 #### PATRICIA NAVARRETE ([id number]) [facility] ([facility]) [address] [place] [address] Methemoglobin (BldA) [Mass fraction] 0.7 % Normal 0.0-1.5 [facility] Comment on above: Performed By: #### 2 434-0 #### PATRICIA NAVARRETE ([id number]) [facility] ([facility]) [address] [place] [address] Oxygen (Bld) [Partial pressure] 82 mm Hg Low 85-95 [facility] Comment on above: Performed By: #### 2 4341-0 #### PATRICIA NAVARRETE ([id number]) [facility] ([facility]) [address] [place] [address] Oxyhemoglobin (BldA) [Mass fraction] 94.8 % Normal 94.0-98.0 [facility] Comment on above: Performed By: #### 2 4341-0 #### PATRICIA NAVARRETE ([id number]) [facility] ([facility]) [address] [place] [address] pH (Bld) 7.41 [pH] Normal 7.38-7.42 [facility] Comment on above: Performed By: #### 2 4341-0 #### PATRICIA NAVARRETE ([id number]) [facility] ([facility]) [address] [place] [address] SITE OF ARTERIAL PUNCTURE RRA Normal [facility] Comment on above: Performed By: #### 2 4341-0 #### PATIRCIA NAVARRETE ([id number]) [facility] ([facility]) [address] [place] [address] HbA1c (Bld) [Mass fraction]o n 09-10-2023 Average glucose Estimated from glycated hemoglobin (Bld) [Mass/Vol] 137 mg/dL Normal Not Established [facility] Comment on above: Order Comment: Diagn osis of Nxrgnvtv-VtsweoHbs-Ojikqdzt: < or = 5.6%Increased risk for developing diabetes: 5.7-6.4%Diagnostic of diabetes: > or = 6.5%Monitoring of DiabetesAge (y)....................... Therapeutic Goal (%)Adults: >18.........................<7.0Pediatrics: 13-18...................<7.5Pediatrics: 7-12....................<8.0Pediatrics: 0-6..................... 7.5-8.5[facility] Diabetes Association. Diabetes Care 33(S1), Aug 2009 Performed By: #### 4 548-4 ####PATRICIA NAVARRETE ([id number])[facility] ([facility])[address] [place] [address] Hemoglobin A1c/Hemoglobin.to kiera 09-10-2023 HbA1c (Bld) [Mass fraction] 6.4 % High see below [facility] Comment on above: Order Comment: Diagn osis of Kdwuqfyb-TqrhbvYla-Czfxupeo: < or = 5.6%Increased risk for developing diabetes: 5.7-6.4%Diagnostic of diabetes: > or = 6.5%Monitoring of DiabetesAge (y)....................... Therapeutic Goal (%)Adults: >18.........................<7.0Pediatrics: 13-18...................<7.5Pediatrics: 7-12....................<8.0Pediatrics: 0-6..................... 7.5-8.5American Diabetes Association. Diabetes Care 33(S1), Aug 2009 Performed By: #### 4 548-4 ####PATRICIA LANDON ([id number])[facility] ([facility])[address] [place], [place] [id number] No Panel Informationon 09-10 [address] [address] [address] [place], [place] [address] and Vascular Lab Report [facility] US LOWER EXTREMITY VEIN MAPPING BILATERAL Patient Name: RUTHDAWSON MACKEY Reading Physician: [id number] Addison Meraz MD, RPVI Study Date: 09/10/2023 Ordering Physician: [id number] MARY GARCIA MRN/PID: [id number] Technologist: Jacquelin Bowman T Technologist 2: Date of /Age: 1 1945 / 77 years Gender: M Admission Status: Outpatient Location Performed: [facility] [place] Diagnosis/ICD: Encounter for preprocedural cardiovascular examination-Z01.810 Indication: pre-op CABG CPT Codes: 38548 Vein mapping complete CONCLUSIONS: Right Lower Vein Mapping: The right great saphenous vein and small saphenous vein appear widely patent with no evidence of thrombosis or fibrosis. Left Lower Vein Mapping: The left small saphenous was not visualized. Left lower extremity vein: The left great saphenous vein appears widely patent with no evidence of thrombosis or fibrosis. Imaging & Doppler Findings: Right Compress Thrombus Diam SFJ Yes None 5.7 mm Prox Thigh GSV Yes None 5.6 mm Mid Thigh GSV Yes None 5.9 mm Knee GSV Yes None 6.2 mm Prox Calf GSV Yes None 4.9 mm Mid Calf GSV Yes None 4.0 mm Dist Calf GSV Yes None 3.5 mm SSV Prox Yes None 5.4 mm SSV Mid Yes None 3.8 mm SSV Distal Yes None 2.6 mm Left Compress Thrombus Diam SFJ Yes None 9.2 mm Prox Thigh GSV Yes None 6.5 mm Mid Thigh GSV Yes None 6.8 mm Knee GSV Yes None 7.1 mm Prox Calf GSV Yes None 3.6 mm Mid Calf GSV Yes None 3.2 mm Dist Calf GSV Yes None 3.3 mm [id number] Meraz MD, RPVI Final Addison Yeung M D - 09/10/2023 [place] [address] and Vascular Lab Report [facility] US LOWER EXTREMITY VEIN MAPPING BILATERAL Patient Name: RUTH MACKEY Reading Physician: [id number] Addison Meraz MD, RPVI Study Date: 09/10/2023 Ordering Physician: [id number] MARY GARCIA MRN/PID: [id number] Technologist: Jacquelin Bowman T Technologist 2: Date of /Age: 1 1945 / 77 years Gender: M Admission Status: Outpatient Location Performed: [facility] Diagnosis/ICD: Encounter for preprocedural cardiovascular examination-Z01.810 Indication: pre-op CABG CPT Codes: 47435 Vein mapping complete CONCLUSIONS: Right Lower Vein Mapping: The right great saphenous vein and small saphenous vein appear widely patent with no evidence of thrombosis or fibrosis. Left Lower Vein Mapping: The left small saphenous was not visualized. Left lower extremity vein: The left great saphenous vein appears widely patent with no evidence of thrombosis or fibrosis. Imaging & Doppler Findings: Right Compress Thrombus Diam SFJ Yes None 5.7 mm Prox Thigh GSV Yes None 5.6 mm Mid Thigh GSV Yes None 5.9 mm Knee GSV Yes None 6.2 mm Prox Calf GSV Yes None 4.9 mm Mid Calf GSV Yes None 4.0 mm Dist Calf GSV Yes None 3.5 mm SSV Prox Yes None 5.4 mm SSV Mid Yes None 3.8 mm SSV Distal Yes None 2.6 mm Left Compress Thrombus Diam SFJ Yes None 9.2 mm Prox Thigh GSV Yes None 6.5 mm Mid Thigh GSV Yes None 6.8 mm Knee GSV Yes None 7.1 mm Prox Calf GSV Yes None 3.6 mm Mid Calf GSV Yes None 3.2 mm Dist Calf GSV Yes None 3.3 mm [id number] Addison Meraz MD, WESLEY Final [facility] Work Phone: Radiology Study observation (narrative) [facility] Work Phone: No Panel InformationOrdered By: Addison Meraz on 09-10-2023 [facility] Work Phone: PT and aPTT panel Coag (PPP) on 09-10-2023 aPTT Coag (PPP) [Time] 31 s Normal 27-38 [facility] Comment on above: Order Comment: The A PTT is no longer used for monitoring Unfractionated Heparin Therapy. For monitoring Heparin Therapy, use the Heparin Assay. Performed By: #### 3 4529-8 #### PATRICIA NAVARRETE ([id number]) [facility] ([facility]) [address] [place] [address] INR Coag (PPP) [Relative time] 1.0 Normal 0.9-1.1 [facility] Comment on above: Order Comment: The A PTT is no longer used for monitoring Unfractionated Heparin Therapy. For monitoring Heparin Therapy, use the Heparin Assay. Performed By: #### 3 4529-8 #### PATRICIA NAVARRETE ([id number]) [facility] ([facility]) [address] [place] [address] PT Coag (PPP) [Time] 11.5 s Normal 9.8-12.8 [facility] Comment on above: Order Comment: The A PTT is no longer used for monitoring Unfractionated Heparin Therapy. For monitoring Heparin Therapy, use the Heparin Assay. Performed By: #### 3 4529-8 #### PATRICIA NAVARRETE ([id number]) [facility] ([facility]) [address] [place] [address] Staphylococcus aureus.methic illin resistant isolateon 09-10-2023 MRSA isol Org specific cx Ql (Nose) Test: Staphylococcus aureus/MRSA colonization, Culture Specimen Source: Anterior Nares Specimen Type: Swab Specimen Date: 09/10/2023 11:30 AM Result Date: 09/12/2023 8:44 AM Result Status: Final result Abnormal: No Resulting Lab: [facility] [address] [address] CULTURE No Staphylococcus aureus isolated Normal [facility] Comment on above: Performed By: #### 5 2969-3 ####SERGIO Stewart ([id number])[facility] ([facility])[address] [place], [place] [id number] Thyrotropinon 09-10-2023 TSH Qn 1.85 m[IU]/L Normal 0.44-3.98 [facility] Comment on above: Order Comment: TSH t esting is performed using different testing methodology at [facility] than at other [facility]. Direct result comparisons should only be made within the same method. Performed By: #### 3 016-3 #### PATRICIA NAVARRETE ([id number]) [facility] ([facility]) [address] [place] [address] US.doppler Carotid arteries - bilateralon 09-10-[address] [address] and Vascular Lab Report [facility] US CAROTID ARTERY DUPLEX BILATERAL Patient Name: RUTH MACKEY Reading Physician: [id number] Addison Meraz MD, RPVI Study Date: 09/10/2023 Ordering Physician: [id number] MARY GARCIA MRN/PID: [id number] Technologist: Technologist 2: Date of /Age: 1 1945 / 77 years Gender: M Admission Status: Outpatient Location Performed: [facility] Diagnosis/ICD: Encounter for preprocedural cardiovascular examination-Z01.810 Indication: Pre-op CABG CPT Codes: 95125 Cerebrovascular Carotid Duplex scan complete CONCLUSIONS: Right Carotid: Findings are consistent with less than 50% stenosis of the right proximal internal carotid artery. Laminar flow seen by color Doppler. Right external carotid artery appears patent with no evidence of stenosis. No evidence of hemodynamically significant stenosis of the right common carotid artery. The right vertebral artery is patent with antegrade flow. No evidence of hemodynamically significant stenosis in the right subclavian artery. Left Carotid: Findings are consistent with less than 50% stenosis of the left proximal internal carotid artery. Laminar flow seen by color Doppler. Left external carotid artery appears patent with no evidence of stenosis. No evidence of hemodynamically significant stenosis of the left common carotid artery. The left vertebral artery is patent with antegrade flow. No evidence of hemodynamically significant stenosis in the left subclavian artery. Goiter noted left lobe of thyroid. Imaging & Doppler Findings: Right Plaque Morph: The proximal right internal carotid artery demonstrates smooth and heterogenous plaque. The proximal right external carotid artery demonstrates smooth and heterogenous plaque. The proximal right common carotid artery demonstrates intimal thickening plaque. The mid right common carotid artery demonstrates irregular and heterogenous plaque. Left Plaque Morph: The proximal left internal carotid artery demonstrates irregular, heterogenous and calcified plaque. The proximal left external carotid artery demonstrates smooth and heterogenous plaque. Right Left PSV EDV PSV EDV 73 cm/s CCA P 90 cm/s 71 cm/s CCA D 62 cm/s 49 cm/s 9 cm/s ICA P 41 cm/s 16 cm/s 46 cm/s 13 cm/s ICA M 56 cm/s 16 cm/s 50 cm/s 11 cm/s ICA D 58 cm/s 17 cm/s 63 cm/s ECA 76 cm/s 27 cm/s 8 cm/s Vertebral 38 cm/s 12 cm/s 70 cm/s Subclavian 87 cm/s Right Left ICA/CCA Ratio 0.7 0.7 [id number] Addison Meraz MD, WESLEY Final Addison Yeung M D - 09/10/2023 [place] [address] [place] [address] and Vascular Lab Report [facility] US CAROTID ARTERY DUPLEX BILATERAL Patient Name: RUTH MACKEY Reading Physician: [id number] Sen MD Study Date: 09/10/2023 Ordering Physician: [id number] MARY GARCIA MRN/PID: [id number] Technologist: Technologist 2: Date of /Age: 1 1945 / 77 years Gender: M Admission Status: Outpatient Location Performed: [facility] Diagnosis/ICD: Encounter for preprocedural cardiovascular examination-Z01.810 Indication: Pre-op CABG CPT Codes: 04207 Cerebrovascular Carotid Duplex scan complete CONCLUSIONS: Right Carotid: Findings are consistent with less than 50% stenosis of the right proximal internal carotid artery. Laminar flow seen by color Doppler. Right external carotid artery appears patent with no evidence of stenosis. No evidence of hemodynamically significant stenosis of the right common carotid artery. The right vertebral artery is patent with antegrade flow. No evidence of hemodynamically significant stenosis in the right subclavian artery. Left Carotid: Findings are consistent with less than 50% stenosis of the left proximal internal carotid artery. Laminar flow seen by color Doppler. Left external carotid artery appears patent with no evidence of stenosis. No evidence of hemodynamically significant stenosis of the left common carotid artery. The left vertebral artery is patent with antegrade flow. No evidence of hemodynamically significant stenosis in the left subclavian artery. Goiter noted left lobe of thyroid. Imaging & Doppler Findings: Right Plaque Morph: The proximal right internal carotid artery demonstrates smooth and heterogenous plaque. The proximal right external carotid artery demonstrates smooth and heterogenous plaque. The proximal right common carotid artery demonstrates intimal thickening plaque. The mid right common carotid artery demonstrates irregular and heterogenous plaque. Left Plaque Morph: The proximal left internal carotid artery demonstrates irregular, heterogenous and calcified plaque. The proximal left external carotid artery demonstrates smooth and heterogenous plaque. Right Left PSV EDV PSV EDV 73 cm/s CCA P 90 cm/s 71 cm/s CCA D 62 cm/s 49 cm/s 9 cm/s ICA P 41 cm/s 16 cm/s 46 cm/s 13 cm/s ICA M 56 cm/s 16 cm/s 50 cm/s 11 cm/s ICA D 58 cm/s 17 cm/s 63 cm/s ECA 76 cm/s 27 cm/s 8 cm/s Vertebral 38 cm/s 12 cm/s 70 cm/s Subclavian 87 cm/s Right Left ICA/CCA Ratio 0.7 0.7 28592 Addison Meraz MD, RPVI Final [facility] Work Phone: Radiology Study observation (narrative) [facility] Work Phone: US.doppler Carotid arteries - bilateralOrdered By: Addiosn Meraz on 09-10-2023 [facility] Work Phone: Urinalysis complete panel (U )on 09-10-2023 Appearance (U) Hazy Normal Clear [facility] Comment on above: Order Comment: Pre O p CABG Performed By: #### 2 4356-8 ####PATRICIA NAVARRETE ([id number])[facility] ([facility])[address] [place] [address] Bilirubin (U) [Mass/Vol] Negative Normal NEGATIVE [facility] Comment on above: Order Comment: Pre O p CABG Performed By: #### 2 4356-8 ####PATRICIA NAVARRETE ([id number])[facility] ([facility])[address] [place] [address] Color (U) Samantha Normal Straw, Yellow [facility] Comment on above: Order Comment: Pre O p CABG Performed By: #### 2 4356-8 ####PATRICIA NAVARRETE ([id number])[facility] ([facility])[address] [place] [address] Glucose Auto test strip (U) [Mass/Vol] Negative Normal NEGATIVE [facility] Comment on above: Order Comment: Pre O p CABG Performed By: #### 2 4356-8 ####PATRICIA NAVARRETE ([id number])[facility] ([facility])[address] [place] [address] Ketones (U) [Mass/Vol] Negative Normal NEGATIVE [facility] Comment on above: Order Comment: Pre O p CABG Performed By: #### 2 4356-8 ####PATRICIA NAVARRETE ([id number])[facility] ([facility])[address] [place] [address] Leukocyte esterase Auto test strip Ql (U) Negative Normal NEGATIVE [facility] Comment on above: Order Comment: Pre O p CABG Performed By: #### 2 4356-8 ####PATRICIA NAVARRETE ([id number])[facility] ([facility])[address] [place] [address] Nitrite Auto test strip Ql (U) Positive Abnormal NEGATIVE [facility] Comment on above: Order Comment: Pre O p CABG Performed By: #### 2 4356-8 ####PATRICIA NAVARRETE ([id number])[facility] ([facility])[address] [place] [address] pH (U) 5.0 [pH] Normal 5.0, 5.5, 6.0, 6.5, 7.0, 7.5, 8.0 [facility] Comment on above: Order Comment: Pre O p CABG Performed By: #### 2 4356-8 ####PATRICIA NAVARRETE ([id number])[facility] ([facility])[address] [place] [address] Protein (U) [Mass/Vol] Negative Normal NEGATIVE [facility] Comment on above: Order Comment: Pre O p CABG Performed By: #### 2 4356-8 ####PATRICIA NAVARRETE ([id number])[facility] ([facility])[address] [place] [address] RBC (U) [#/Vol] Negative Normal NEGATIVE [facility] Comment on above: Order Comment: Pre O p CABG Performed By: #### 2 4356-8 ####PATRICIA NAVARRETE ([id number])[facility] ([facility])[address] [place] [address] Specific gravity (U) [Rel density] 1.023 Normal 1.005-1.035 [facility] Comment on above: Order Comment: Pre O p CABG Performed By: #### 2 4356-8 ####PATRICIA NAVARRETE ([id number])[facility] ([facility])[address] [place] [address] Urobilinogen (U) [Mass/Vol] mg/dL Normal <2.0 [facility] Comment on above: Order Comment: Pre O p CABG Performed By: #### 2 4356-8 ####PATRICIA NAVARRETE ([id number])[facility] ([facility])[address] [place] [address] Urinalysis microscopic panel Auto Ql (U)on 09-10-2023 Mucus Auto (Urine sed) [#/Area] 1+ /LPF Normal Reference range not established. [facility] Comment on above: Order Comment: Pre O p CABG Performed By: #### 5 3315-8 #### PATRICIA NAVARRETE ([id number]) [facility] ([facility]) [address] [facility] [place] [address] RBC Auto (Urine sed) [#/Area] NONE Normal NONE, 1-2, 3-5 [facility] Comment on above: Order Comment: Pre O p CABG Performed By: #### 5 3315-8 #### PATRICIA NAVARRETE ([id number]) [facility] ([facility]) [address] [place] [address] WBC Auto (Urine sed) [#/Area] 1-5 Normal 1-5, NONE [facility] Comment on above: Order Comment: Pre O p CABG Performed By: #### 5 2125-8 #### PATRICIA LANDON ([id number]) [facility] ([facility]) [address] [place] [address] [facility] US CAROTID ARTERY DUPLE X BILATERALon 09-10-2023 [facility] US CAROTID ARTERY DUPLEX BILATERAL [facility] [address], [place] [address] and Vascular Lab Report [facility] US CAROTID ARTERY DUPLEX BILATERAL Patient Name: RUTH Duron KEY Reading Physician: [id number] Addison Meraz MD, RPVI Study Date: 09/10/2023 Ordering Physician: [id number] MARY GARCIA MRN/PID: [id number] Technologist: Technologist 2: Date of /Age: 1 1945 / 77 years Gender: M Admission Status: Outpatient Location Performed: [facility] [place] Diagnosis/ICD: Encounter for preprocedural cardiovascular examination-Z01.810 Indication: Pre-op CABG CPT Codes: 66665 Cerebrovascular Carotid Duplex scan complete CONCLUSIONS: Right Carotid: Findings are consistent with less than 50% stenosis of the right proximal internal carotid artery. Laminar flow seen by color Doppler. Right external carotid artery appears patent with no evidence of stenosis. No evidence of hemodynamically significant stenosis of the right common carotid artery. The right vertebral artery is patent with antegrade flow. No evidence of hemodynamically significant stenosis in the right subclavian artery. Left Carotid: Findings are consistent with less than 50% stenosis of the left proximal internal carotid artery. Laminar flow seen by color Doppler. Left external carotid artery appears patent with no evidence of stenosis. No evidence of hemodynamically significant stenosis of the left common carotid artery. The left vertebral artery is patent with antegrade flow. No evidence of hemodynamically significant stenosis in the left subclavian artery. Goiter noted left lobe of thyroid. Imaging & Doppler Findings: Right Plaque Morph: The proximal right internal carotid artery demonstrates smooth and heterogenous plaque. The proximal right external carotid artery demonstrates smooth and heterogenous plaque. The proximal right common carotid artery demonstrates intimal thickening plaque. The mid right common carotid artery demonstrates irregular and heterogenous plaque. Left Plaque Morph: The proximal left internal carotid artery demonstrates irregular, heterogenous and calcified plaque. The proximal left external carotid artery demonstrates smooth and heterogenous plaque. Right Left PSV EDV PSV EDV 73 cm/s CCA P 90 cm/s 71 cm/s CCA D 62 cm/s 49 cm/s 9 cm/s ICA P 41 cm/s 16 cm/s 46 cm/s 13 cm/s ICA M 56 cm/s 16 cm/s 50 cm/s 11 cm/s ICA D 58 cm/s 17 cm/s 63 cm/s ECA 76 cm/s 27 cm/s 8 cm/s Vertebral 38 cm/s 12 cm/s 70 cm/s Subclavian 87 cm/s Right Left ICA/CCA Ratio 0.7 0.7 60977 Addison Meraz MD, RPVI Final Normal [facility] VAS US LOWER EXTREMITY VEIN MAPPING BILATERALon 09-10-2023 [facility] US LOWER EXTREMITY VEIN MAPPING BILATERAL [place] [address] [address] [place] [address] and Vascular Lab Report [facility] US LOWER EXTREMITY VEIN MAPPING BILATERAL Patient Name: RUTH Duron KEY Reading Physician: [id number] Addison Meraz MD, RPVI Study Date: 09/10/2023 Ordering Physician: [id number] MARY GARCIA MRN/PID: [id number] Technologist: Jacquelin Bowman Nghia Technologist 2: Date of /Age: 1 1945 / 77 years Gender: M Admission Status: Outpatient Location Performed: [facility] [place] Diagnosis/ICD: Encounter for preprocedural cardiovascular examination-Z01.810 Indication: pre-op CABG CPT Codes: 96198 Vein mapping complete CONCLUSIONS: Right Lower Vein Mapping: The right great saphenous vein and small saphenous vein appear widely patent with no evidence of thrombosis or fibrosis. Left Lower Vein Mapping: The left small saphenous was not visualized. Left lower extremity vein: The left great saphenous vein appears widely patent with no evidence of thrombosis or fibrosis. Imaging & Doppler Findings: Right Compress Thrombus Diam SFJ Yes None 5.7 mm Prox Thigh GSV Yes None 5.6 mm Mid Thigh GSV Yes None 5.9 mm Knee GSV Yes None 6.2 mm Prox Calf GSV Yes None 4.9 mm Mid Calf GSV Yes None 4.0 mm Dist Calf GSV Yes None 3.5 mm SSV Prox Yes None 5.4 mm SSV Mid Yes None 3.8 mm SSV Distal Yes None 2.6 mm Left Compress Thrombus Diam SFJ Yes None 9.2 mm Prox Thigh GSV Yes None 6.5 mm Mid Thigh GSV Yes None 6.8 mm Knee GSV Yes None 7.1 mm Prox Calf GSV Yes None 3.6 mm Mid Calf GSV Yes None 3.2 mm Dist Calf GSV Yes None 3.3 mm 18680 Addison Meraz MD, RPVI Final [facility] VERAB/VERIFY ABORHon 024 ABO group Nom (Bld) O [facility] Comment on above: Order Comment: Thi s is for confirming/verifying history of ABORh on file for transfusion of blood products. If this is not for transfusion, please order an ABO/RH [[id number]]. If you have any questions or unsure what to order, please call the blood bank. Performed By: #### V ERAB #### PATRICIA NAVARRETE ([id number]) [facility] ([facility]) [address] [place] [address] [place] Performed By: #### 3 4532-2 ####PATRICIA NAVARRETE ([id number])[facility] ([facility])[address] [id number] D Ag Ql (Bld) Negative [facility] Comment on above: Order Comment: Thi s is for confirming/verifying history of ABORh on file for transfusion of blood products. If this is not for transfusion, please order an ABO/RH [[id number]]. If you have any questions or unsure what to order, please call the blood bank. Performed By: #### V ERAB #### PATRICIA NAVARRETE ([id number]) [facility] ([facility]) [address] [id number] [place] Performed By: #### 3 4532-2 ####PATRICIAALEXANDRE NAVARRETE ([id number])[facility] ([facility])[address] [id number] CARDIAC CATHETERIZATION - CO [place] 07-29-2023 CARDIAC CATHETERIZATION - CORONARY [facility] Clinical Nurse Specialist [address] [place] [address] [phone], Cardiovascular Catheterization Report Patient Name: RUTH MACKEY Performing Physician: Berny Garcia MD Study Date: 07/29/2023 Verifying Physician: Berny Garcia MD MRN/PID: [id number] Building Maintenance Technician: Ordering Provider: Berny GARCIA Date of /Age: 1 1945 / 77 years Fellow: Gender: M Fellow: Study: Left Heart Cath Indications: RUTH MACKEY is a 78 year old male who presents with hypertension, dyslipidemia, diabetes, prior percutaneous coronary intervention, coronary artery disease and an anginal equivalent chest pain assessment (i.e. dyspnea on exertion believed to be from ischemia). Worsening angina. Stress test performed: Yes. Stress test type: Stress Nuclear. Stress result: Positive. LVEF Assessed: Yes. LVEF = 60%. Procedure Description: After infiltration with 2% Lidocaine, the right radial artery was cannulated with a modified Seldinger technique. Subsequently a 6 Burmese sheath was placed in the right radial artery. Selective coronary catheterization was performed using a 5 Fr catheter(s) exchanged over a guide wire to cannulate the coronary arteries. A 5F Tig tip catheter was used for left coronary injections. A 5F Tig tip catheter was used for right coronary injections. Multiple injections of contrast were made into the left and right coronary arteries with angiograms recorded in multiple projections. After completion of the procedure, the arterial sheath was pulled and a TR Band Radial Compression Device was utilized to obtain patent hemostasis. Coronary Angiography: The coronary circulation is right dominant. Left Main Coronary Artery: The left main coronary artery is a normal caliber vessel. The left main arises normally from the left coronary sinus of Valsalva and bifurcates into the LAD and circumflex coronary arteries. The left main coronary artery showed atherosclerotic disease and calcification. The distal left main coronary artery showed 60% stenosis. This lesion was calcified. Left Anterior Descending Coronary Artery Distribution: The left anterior descending coronary artery is a normal caliber vessel. The LAD arises normally from the left main coronary artery. The LAD demonstrated a normal vessel, atherosclerotic disease and calcification. The proximal left anterior descending coronary artery showed 70% stenosis. This lesion was diffuse. The 1st diagonal branch is a normal caliber vessel. The 1st diagonal branch showed no significant disease or stenosis greater than 30%. Circumflex Coronary Artery Distribution: The circumflex coronary artery is a normal caliber vessel. The circumflex arises normally from the left main coronary artery and terminates in the AV groove. The circumflex revealed atherosclerotic disease and calcification. The mid circumflex coronary artery showed 99% stenosis. This lesion was calcified. The 1st obtuse marginal branch is a small caliber vessel. The 1st obtuse marginal branch showed atherosclerotic disease. The ostial 1st obtuse marginal branch showed 99% stenosis. This lesion was diffuse. The 2nd obtuse marginal branch is a small caliber vessel. The 2nd obtuse marginal branch demonstrated atherosclerotic disease. The ostial 2nd obtuse marginal branch demonstrated 99% stenosis. This lesion was diffuse. Right Coronary Artery Distribution: The right coronary artery is a normal caliber vessel. The RCA arises normally from the right sinus of Valsalva. The RCA showed no significant disease or stenosis greater than 30%. Patent stent to ostial RCA. The right posterolateral branch is a normal caliber vessel. The right posterolateral branch showed no significant disease or stenosis greater than 30%. The right posterior descending artery is a small caliber vessel. The right posterior descending artery showed atherosclerotic disease. The proximal to mid right posterior descending artery revealed 70% stenosis. This lesion was diffuse. Coronary Lesion Summary: Vessel Stenosis Vessel Segment Left Main 60% stenosis distal LAD 70% stenosis proximal Circumflex 99% stenosis mid OM 1 99% stenosis ostial OM 2 99% stenosis ostial RPDA 70% stenosis proximal to mid Hemo Personnel: + -----+---------+ Name Duty + -----+---------+ Broderick Morataya MD, MD 1 + -----+---------+ Hemodynamic Pressures: +----+ +--- -------+ +--- +-------+----- ----+ Site Date Time Phase Name Systolic mmHg Diastolic mmHg ED mmHg Mean mmHg +----+ +--- -------+ +--- +-------+----- ----+ LV 07/29/2023 AIR REST 109 0 8 8:34:54 AM +----+ +--- -------+ +- (more content not included)... Normal [facility] ECG 12-LEADon 07-29-2023 ECG 12-LEAD Ventricular Rate 72 Atrial Rate 72 P-R Interval 206 QRS Duration 146 Q-T Interval 414 QTC Calculation(Bazett) 453 P Fate 22 R Fate 3 T Fate 88 QRS Count 12 Q Onset 215 P Onset 112 P Offset 173 T Offset 422 QTC Fredericia 440 Diagnosis Normal sinus rhythm Left bundle branch block Abnormal ECG No previous ECGs available See ED provider note for full interpretation and clinical correlation Confirmed by Brianne Mckay ([id number]) on 07/29/2023 3:49:36 PM Normal [facility] Basic metabolic 2000 panelon 07-19-2023 Anion gap [Moles/Vol] 9 mmol/L Low 10-20 [facility] Comment on above: Performed By: #### 2 4321-2 #### ELISEO BOWERS ([id number]) [facility] ([facility]) [address] [place] [address] Calcium [Mass/Vol] 9.8 mg/dL Normal 8.6-10.3 [facility] Comment on above: Performed By: #### 2 4321-2 #### ELISEO BOWERS ([id number]) [facility] ([facility]) [address] [place] [address] 92054 Chloride [Moles/Vol] 103 mmol/L Normal 98-107 [facility] Comment on above: Performed By: #### 2 4321-2 #### ELISEO BOWESR ([id number]) [facility] ([facility]) [address] [place] [address] 28891 CO2 [Moles/Vol] 31 mmol/L Normal 21-32 [facility] Comment on above: Performed By: #### 2 4321-2 #### ELISEO BOWERS ([id number]) [facility] ([facility]) [address] [place] [address] 66700 Creatinine [Mass/Vol] 1.65 mg/dL High 0.50-1.30 [facility] Comment on above: Performed By: #### 2 4321-2 #### ELISEO BOWERS ([id number]) [facility] ([facility]) [address] [place] [address] 73521 GFR/1.73 sq M.predicted MDRD (S/P/Bld) [Vol rate/Area] 43 mL/min/1.73m*2 Low >[address] [facility] Comment on above: Result Comment: Calc ulations of estimated GFR are performed using the 2020 CKD-EPI Study Refit equation without the race variable for the IDMS-Traceable creatinine methods. https://jasn.asnjournals.org/content/early//ASN.733768 7630 Performed By: #### 2 4321-2 #### ELISEO BOWERS ([id number]) [facility] ([facility]) [address] [place] [address] 11305 Glucose [Mass/Vol] 221 mg/dL High 74-99 [facility] Comment on above: Performed By: #### 2 4321-2 #### ELISEO BOWERS ([id number]) [facility] ([facility]) [address] [place] [address] 12478 Potassium [Moles/Vol] 4.0 mmol/L Normal 3.5-5.3 [facility] Comment on above: Performed By: #### 2 4321-2 #### ELISEO BOWERS ([id number]) [facility] ([facility]) [address] [place] [address] 81878 Sodium [Moles/Vol] 139 mmol/L Normal 136-145 [facility] Comment on above: Performed By: #### 2 4321-2 #### ELISEO BOWERS ([id number]) [facility] ([facility]) [address] [place] [address] 79857 Urea nitrogen [Mass/Vol] 28 mg/dL High 6-[address] [facility] Comment on above: Performed By: #### 2 4321-2 #### ELISEO BOWERS ([id number]) [facility] ([facility]) [address] [place] [address] 69165 CBC W Auto Differential pane l (Bld)on 07-19-2023 Basophils (Bld) [#/Vol] 0.04 x10*3/uL Normal 0.00-0.[address] [facility] Comment on above: Performed By: #### 5 7021-8 #### ELISEO BOWERS ([id number]) [facility] ([facility]) [address] [place] [address] 72749 Basophils/100 WBC (Bld) 0.6 % Normal 0.0-2.[address] [facility] Comment on above: Performed By: #### 5 7021-8 #### ELISEO BOWERS ([id number]) [facility] ([facility]) [address] [place] [address] 69692 Eosinophils (Bld) [#/Vol] 0.33 x10*3/uL Normal 0.00-0.[address] [facility] Comment on above: Performed By: #### 5 7021-8 #### ELISEO BOWERS ([id number]) [facility] ([facility]) [address] [place] [address] 54583 Eosinophils/100 WBC (Bld) 4.6 % Normal 0.0-6.[address] [facility] Comment on above: Performed By: #### 5 7021-8 #### ELISEO BOWERS ([id number]) [facility] ([facility]) [address] [place] [address] 12101 Erythrocyte distribution width (RBC) [Ratio] 13.4 % Normal 11.5-14.[address] [facility] Comment on above: Performed By: #### 5 7021-8 #### ELISEO BOWERS ([id number]) [facility] ([facility]) [address] [place] [address] 35086 Hematocrit (Bld) [Volume fraction] 40.0 % Low 41.0-52.[address] [facility] Comment on above: Performed By: #### 5 7021-8 #### ELISEO BOWERS ([id number]) [facility] ([facility]) [address] [place] [address] 75505 Hemoglobin (Bld) [Mass/Vol] 12.9 g/dL Low 13.5-17.[address] [facility] Comment on above: Performed By: #### 5 7021-8 #### ELISEO BOWERS ([id number]) [facility] ([facility]) [address] [place] [address] 34847 Immature granulocytes (Bld) [#/Vol] 0.03 x10*3/uL Normal 0.00-0.[address] [facility] Comment on above: Performed By: #### 5 7021-8 #### ELISEO BOWERS ([id number]) [facility] ([facility]) [address] [place] [address] 74185 Immature granulocytes/100 WBC (Bld) 0.4 % Normal 0.0-0.[address] [facility] Comment on above: Result Comment: Symone ture Granulocyte Count (IG) includes promyelocytes, myelocytes and metamyelocytes but does not include bands. Percent differential counts (%) should be interpreted in the context of the absolute cell counts (cells/UL). Performed By: #### 5 7021-8 #### ELISEO BOWERS ([id number]) [facility] ([facility]) [address] [place] [address] 85046 Lymphocytes (Bld) [#/Vol] 1.13 x10*3/uL Normal 0.80-3.[address] [facility] Comment on above: Performed By: #### 5 7021-8 #### ELISEO BOWERS ([id number]) [facility] ([facility]) [address] [place] [address] 31110 Lymphocytes/100 WBC (Bld) 15.8 % Normal 13.0-44.[address] [facility] Comment on above: Performed By: #### 5 7021-8 #### ELISEO BOWERS ([id number]) [facility] ([facility]) [address] [place] [address] 20401 MCH (RBC) [Entitic mass] 33.8 pg Normal 26.0-34.[address] [facility] Comment on above: Performed By: #### 5 7021-8 #### ELISEO BOWERS ([id number]) [facility] ([facility]) [address] [place] [address] 36886 MCHC (RBC) [Mass/Vol] 32.3 g/dL Normal 32.0-36.0 [facility] Comment on above: Performed By: #### 5 7021-8 #### ELISEO BOWERS ([id number]) [facility] ([facility]) [address] [place] [address] 75298 MCV (RBC) [Entitic vol] 105 fL High 80-[address] [facility] Comment on above: Performed By: #### 5 7021-8 #### ELISEO BOWERS ([id number]) [facility] ([facility]) [address] [place] [address] 99754 Monocytes (Bld) [#/Vol] 0.58 x10*3/uL Normal 0.05-0.[address] [facility] Comment on above: Performed By: #### 5 7021-8 #### ELISEO BOWERS ([id number]) [facility] ([facility]) [address] [place] [address] 14113 Monocytes/100 WBC (Bld) 8.1 % Normal 2.0-10.[address] [facility] Comment on above: Performed By: #### 5 7021-8 #### ELISEO BOWERS ([id number]) [facility] ([facility]) [address] [place] [address] 54240 Neutrophils (Bld) [#/Vol] 5.03 x10*3/uL Normal 1.60-5.[address] [facility] Comment on above: Result Comment: Perc ent differential counts (%) should be interpreted in the context of the absolute cell counts (cells/uL). Performed By: #### 5 7021-8 #### ELISEO BOWERS ([id number]) [facility] ([facility]) [address] [place] [address] 95429 Neutrophils/100 WBC (Bld) 70.5 % Normal 40.0-80.[address] [facility] Comment on above: Performed By: #### 5 7021-8 #### ELISEO BOWERS ([id number]) [facility] ([facility]) [address] [place] [address] 06099 Nucleated RBC/100 WBC (Bld) [Ratio] 0.0 /100 WBCs Normal 0.0-0.[address] [facility] Comment on above: Performed By: #### 5 7021-8 #### ELISEO BOWERS ([id number]) [facility] ([facility]) [address] [place] [id number] Platelets (Bld) [#/Vol] 231 x10*3/uL Normal 150-[address] [facility] Comment on above: Performed By: #### 5 7021-8 #### ELISEO BOWERS ([id number]) [facility] ([facility]) [address] [place] [address] 97103 RBC (Bld) [#/Vol] 3.82 x10*6/uL Low 4.50-5.90 [facility] Comment on above: Performed By: #### 5 7021-8 #### ELISEO BOWERS ([id number]) [facility] ([facility]) [address] [place] [address] WBC (Bld) [#/Vol] 7.1 x10*3/uL Normal 4.4-11.3 [facility] Comment on above: Performed By: #### 5 7021-8 #### GOMES ELISSA ([id number]) [facility] ([facility]) [address] [place] [address] TRANSTHORACIC ECHO (TTE) COM PLETEon 06-21-2023 TRANSTHORACIC ECHO ([place]) [place] [address] ext-[phone], TRANSTHORACIC ECHOCARDIOGRAM REPORT Patient Name: RUTH Duron KEY Reading Physician: [id number] Sam Ugalde MD Study Date: 06/21/2023 Ordering Provider: [id number] BRODERICK GARCIA MRN/PID: [id number] Fellow: Nurse: Yesi Colby RN Date of /Age: 1 1945 / 77 years Room Attendants: Alvarado Rose RDCS Gender: M Additional Staff: Height: 172.72 cm Admit Date: Weight: 88.45 kg Admission Status: Outpatient BSA: 2.02 m2 Department Location: [facility] Echo Lab Blood Pressure: 123 /71 mmHg Study Type: TRANSTHORACIC ECHO (TTE) COMPLETE Diagnosis/ICD: Chronic ischemic heart disease, unspecified-I25.9 CPT Codes: Echo Complete w Full Doppler-54191 Study Detail: The following Echo studies were performed: 2D, Doppler, M-Mode and color flow. Definity used as a contrast agent for endocardial border definition and agitated saline used as a contrast agent for intraseptal flow evaluation. Total contrast used for this procedure was 2.00cc mL via IV push. PHYSICIAN INTERPRETATION: Left Ventricle: Left ventricular systolic function is normal, with an estimated ejection fraction of 60%. There are no regional wall motion abnormalities. The left ventricular cavity size is normal. Abnormal (paradoxical) septal motion, consistent with left bundle branch block. Spectral Doppler shows an impaired relaxation pattern of left ventricular diastolic filling. Left Atrium: The left atrium is normal in size. A bubble study using agitated saline was performed. Bubble study is negative. Right Ventricle: The right ventricle is normal in size. There is normal right ventricular global systolic function. Right Atrium: The right atrium is normal in size. Aortic Valve: The aortic valve is trileaflet. There is no evidence of aortic valve regurgitation. The peak instantaneous gradient of the aortic valve is 12.7 mmHg. The mean gradient of the aortic valve is 7.0 mmHg. Mitral Valve: The mitral valve is normal in structure. There is no evidence of mitral valve regurgitation. Tricuspid Valve: The tricuspid valve is structurally normal. There is trace tricuspid regurgitation. Pulmonic Valve: The pulmonic valve is not well visualized. There is no indication of pulmonic valve regurgitation. Pericardium: There is no pericardial effusion noted. Aorta: The aortic root is normal. CONCLUSIONS: 1. Left ventricular systolic function is normal with a 60% estimated ejection fraction. 2. Abnormal septal motion consistent with left bundle branch block. 3. Spectral Doppler shows an impaired relaxation pattern of left ventricular diastolic filling. QUANTITATIVE DATA SUMMARY: 2D MEASUREMENTS: Normal Ranges: Ao Root d: 3.10 cm (2.0-3.7cm) LAs: 3.10 cm (2.7-4.0cm) IVSd: 0.99 cm (0.6-1.1cm) LVPWd: 1.08 cm (0.6-1.1cm) LVIDd: 4.17 cm (3.9-5.9cm) LVIDs: 2.99 cm LV Mass Index: 70.4 g/m2 LV % FS 28.3 % LA VOLUME: Normal Ranges: LA Vol A4C: 28.3 ml (22+/-6mL/m2) LA Vol A2C: 39.3 ml LA Vol BP: 36.8 ml LA Vol Index A4C: 14.0ml/m2 LA Vol Index A2C: 19.5 ml/m2 LA Vol Index BP: 18.2 ml/m2 LA Area A4C: 12.6 cm2 LA Area A2C: 16.4 cm2 LA Major Fate A4C: 4.8 cm LA Major Fate A2C: 5.8 cm LA Volume Index: 13.1 ml/m2 LA Vol A4C: 26.5 ml LA Vol A2C: 39.2 ml LV SYSTOLIC FUNCTION BY 2D PLANIMETRY (MOD): Normal Ranges: EF-A4C View: 59.4 % (>=55%) EF-A2C View: 72.2 % EF-Biplane: 66.1 % LV DIASTOLIC FUNCTION: Normal Ranges: MV Peak E: 0.59 m/s (0.7-1.2 m/s) MV Peak A: 0.92 m/s (0.42-0.7 m/s) E/A Ratio: 0.64 (1.0-2.2) MV lateral e' 0.10 m/s MV medial e' 0.06 m/s MITRAL VALVE: Normal Ranges: MV DT: 268 msec (150-240msec) AORTIC VALVE: Normal Ranges: AoV Vmax: 1.78 m/s (<=1.7m/s) AoV Peak P.7 mmHg (<20mmHg) AoV Mean P.0 mmHg (1.7-11.5mmHg) LVOT Max Maddie: 1.06 m/s (<=1.1m/s) AoV VTI: 33.40 cm (18-25cm) LVOT VTI: 21.80 cm LVOT Diameter: 1.90 cm (1.8-2.4cm) AoV Area, VTI: 1.85 cm2 (2.5-5.5cm2) AoV Area,Vmax: 1.69 cm2 (2.5-4.5cm2) AoV Dimensionless Index: 0.65 RIGHT VENTRICLE: RV Basal 4.92 cm RV Mid 3.59 cm RV Major 8.6 cm TAPSE: 23.3 mm RV s' 0.11 m/s TRICUSPID VALVE/RVSP: Normal Ranges: Peak TR Velocity: 2.76 m/s RV Syst Pressure: 33.5 mmHg (< 30mmHg) [id number] Sam Ugalde MD Electronically signed on 06/21/2023 at 1:43:[address] [facility] US Heart TransthoracicOrdere d By: Sam Ugalde on 06-21-2023 Aortic Valve Area by Continuity of Peak Velocity 1.69 [facility] Work Phone: Aortic Valve Area by Continuity of VTI 1.85 [facility] Work Phone: AV mn grad 7.0 [facility] Work Phone: AV pk grad 12.7 [facility] Work Phone: [phone] AV pk maddie 1.78 [facility] Work Phone: [phone] LA vol index A/L 18.2 [facility] Work Phone: LV A4C EF 59.4 [facility] Work Phone: [phone] LV biplane EF 66 [facility] Work Phone: [phone] LVIDd 4.17 [facility] Work Phone: [phone] LVOT diam 1.90 [facility] Work Phone: [phone] MV E/A ratio 0.64 [facility] Work Phone: [phone] RV free wall pk S' 11.20 [facility] Work Phone: RVSP 33.5 [facility] Work Phone: Tricuspid annular plane systolic excursion 2.3 [facility] Work Phone: [phone] [facility] Work Phone: [phone] Heart Transthoracicon [place] [id number], TRANSTHORACIC ECHOCARDIOGRAM REPORT Patient Name: RUTH MACKEY Reading Physician: [id number] Sam Ugalde MD Study Date: 06/21/2023 Ordering Provider: [id number] BRODERICK GARCIA MRN/PID: [id number] Fellow: Nurse: Yesi Colby RN Date of /Age: 1 1945 / 77 years Room Attendants: Alvarado Rose RDCS Gender: M Additional Staff: Height: 172.72 cm Admit Date: Weight: 88.45 kg Admission Status: Outpatient BSA: 2.02 m2 Department Location: [facility] Echo Lab Blood Pressure: 123 /71 mmHg Study Type: TRANSTHORACIC ECHO (TTE) COMPLETE Diagnosis/ICD: Chronic ischemic heart disease, unspecified-I25.9 CPT Codes: Echo Complete w Full Doppler-28782 Study Detail: The following Echo studies were performed: 2D, Doppler, M-Mode and color flow. Definity used as a contrast agent for endocardial border definition and agitated saline used as a contrast agent for intraseptal flow evaluation. Total contrast used for this procedure was 2.00cc mL via IV push. PHYSICIAN INTERPRETATION: Left Ventricle: Left ventricular systolic function is normal, with an estimated ejection fraction of 60%. There are no regional wall motion abnormalities. The left ventricular cavity size is normal. Abnormal (paradoxical) septal motion, consistent with left bundle branch block. Spectral Doppler shows an impaired relaxation pattern of left ventricular diastolic filling. Left Atrium: The left atrium is normal in size. A bubble study using agitated saline was performed. Bubble study is negative. Right Ventricle: The right ventricle is normal in size. There is normal right ventricular global systolic function. Right Atrium: The right atrium is normal in size. Aortic Valve: The aortic valve is trileaflet. There is no evidence of aortic valve regurgitation. The peak instantaneous gradient of the aortic valve is 12.7 mmHg. The mean gradient of the aortic valve is 7.0 mmHg. Mitral Valve: The mitral valve is normal in structure. There is no evidence of mitral valve regurgitation. Tricuspid Valve: The tricuspid valve is structurally normal. There is trace tricuspid regurgitation. Pulmonic Valve: The pulmonic valve is not well visualized. There is no indication of pulmonic valve regurgitation. Pericardium: There is no pericardial effusion noted. Aorta: The aortic root is normal. CONCLUSIONS: 1. Left ventricular systolic function is normal with a 60% estimated ejection fraction. 2. Abnormal septal motion consistent with left bundle branch block. 3. Spectral Doppler shows an impaired relaxation pattern of left ventricular diastolic filling. QUANTITATIVE DATA SUMMARY: 2D MEASUREMENTS: Normal Ranges: Ao Root d: 3.10 cm (2.0-3.7cm) LAs: 3.10 cm (2.7-4.0cm) IVSd: 0.99 cm (0.6-1.1cm) LVPWd: 1.08 cm (0.6-1.1cm) LVIDd: 4.17 cm (3.9-5.9cm) LVIDs: 2.99 cm LV Mass Index: 70.4 g/m2 LV % FS 28.3 % LA VOLUME: Normal Ranges: LA Vol A4C: 28.3 ml (22+/-6mL/m2) LA Vol A2C: 39.3 ml LA Vol BP: 36.8 ml LA Vol Index A4C: 14.0ml/m2 LA Vol Index A2C: 19.5 ml/m2 LA Vol Index BP: 18.2 ml/m2 LA Area A4C: 12.6 cm2 LA Area A2C: 16.4 cm2 LA Major Fate A4C: 4.8 cm LA Major Fate A2C: 5.8 cm LA Volume Index: 13.1 ml/m2 LA Vol A4C: 26.5 ml LA Vol A2C: 39.2 ml LV SYSTOLIC FUNCTION BY 2D PLANIMETRY (MOD): Normal Ranges: EF-A4C View: 59.4 % (>=55%) EF-A2C View: 72.2 % EF-Biplane: 66.1 % LV DIASTOLIC FUNCTION: Normal Ranges: MV Peak E: 0.59 m/s (0.7-1.2 m/s) MV Peak A: 0.92 m/s (0.42-0.7 m/s) E/A Ratio: 0.64 (1.0-2.2) MV lateral e' 0.10 m/s MV medial e' 0.06 m/s MITRAL VALVE: Normal Ranges: MV DT: 268 msec (150-240msec) AORTIC VALVE: Normal Ranges: AoV Vmax: 1.78 m/s (<=1.7m/s) AoV Peak P.7 mmHg (<20mmHg) AoV Mean P.0 mmHg (1.7-11.5mmHg) LVOT Max Maddie: 1.06 m/s (<=1.1m/s) AoV VTI: 33.40 cm (18-25cm) LVOT VTI: 21.80 cm LVOT Diameter: 1.90 cm (1.8-2.4cm) AoV Area, VTI: 1.85 cm2 (2.5-5.5cm2) AoV Area,Vmax: 1.69 cm2 (2.5-4.5cm2) AoV Dimensionless Index: 0.65 RIGHT VENTRICLE: (more content not included)... Sam Galo MD - 06/21/2023 [place] [id number], TRANSTHORACIC ECHOCARDIOGRAM REPORT Patient Name: RUTH MACKEY Reading Physician: [id number] Sam Ugalde MD Study Date: 06/21/2023 Ordering Provider: [id number] BRODERICK GARCIA MRN/PID: [id number] Fellow: Nurse: Yesi Colby RN Date of /Age: 1 1945 / 77 years Room Attendants: Alvarado Rose RDCS Gender: M Additional Staff: Height: 172.72 cm Admit Date: Weight: 88.45 kg Admission Status: Outpatient BSA: 2.02 m2 Department Location: [facility] Echo Lab Blood Pressure: 123 /71 mmHg Study Type: TRANSTHORACIC ECHO (TTE) COMPLETE Diagnosis/ICD: Chronic ischemic heart disease, unspecified-I25.9 CPT Codes: Echo Complete w Full Doppler-[id number] Study Detail: The following Echo studies were performed: 2D, Doppler, M-Mode and color flow. Definity used as a contrast agent for endocardial border definition and agitated saline used as a contrast agent for intraseptal flow evaluation. Total contrast used for this procedure was 2.00cc mL via IV push. PHYSICIAN INTERPRETATION: Left Ventricle: Left ventricular systolic function is normal, with an estimated ejection fraction of 60%. There are no regional wall motion abnormalities. The left ventricular cavity size is normal. Abnormal (paradoxical) septal motion, consistent with left bundle branch block. Spectral Doppler shows an impaired relaxation pattern of left ventricular diastolic filling. Left Atrium: The left atrium is normal in size. A bubble study using agitated saline was performed. Bubble study is negative. Right Ventricle: The right ventricle is normal in size. There is normal right ventricular global systolic function. Right Atrium: The right atrium is normal in size. Aortic Valve: The aortic valve is trileaflet. There is no evidence of aortic valve regurgitation. The peak instantaneous gradient of the aortic valve is 12.7 mmHg. The mean gradient of the aortic valve is 7.0 mmHg. Mitral Valve: The mitral valve is normal in structure. There is no evidence of mitral valve regurgitation. Tricuspid Valve: The tricuspid valve is structurally normal. There is trace tricuspid regurgitation. Pulmonic Valve: The pulmonic valve is not well visualized. There is no indication of pulmonic valve regurgitation. Pericardium: There is no pericardial effusion noted. Aorta: The aortic root is normal. CONCLUSIONS: 1. Left ventricular systolic function is normal with a 60% estimated ejection fraction. 2. Abnormal septal motion consistent with left bundle branch block. 3. Spectral Doppler shows an impaired relaxation pattern of left ventricular diastolic filling. QUANTITATIVE DATA SUMMARY: 2D MEASUREMENTS: Normal Ranges: Ao Root d: 3.10 cm (2.0-3.7cm) LAs: 3.10 cm (2.7-4.0cm) IVSd: 0.99 cm (0.6-1.1cm) LVPWd: 1.08 cm (0.6-1.1cm) LVIDd: 4.17 cm (3.9-5.9cm) LVIDs: 2.99 cm LV Mass Index: 70.4 g/m2 LV % FS 28.3 % LA VOLUME: Normal Ranges: LA Vol A4C: 28.3 ml (22+/-6mL/m2) LA Vol A2C: 39.3 ml LA Vol BP: 36.8 ml LA Vol Index A4C: 14.0ml/m2 LA Vol Index A2C: 19.5 ml/m2 LA Vol Index BP: 18.2 ml/m2 LA Area A4C: 12.6 cm2 LA Area A2C: 16.4 cm2 LA Major Fate A4C: 4.8 cm LA Major Fate A2C: 5.8 cm LA Volume Index: 13.1 ml/m2 LA Vol A4C: 26.5 ml LA Vol A2C: 39.2 ml LV SYSTOLIC FUNCTION BY 2D PLANIMETRY (MOD): Normal Ranges: EF-A4C View: 59.4 % (>=55%) EF-A2C View: 72.2 % EF-Biplane: 66.1 % LV DIASTOLIC FUNCTION: Normal Ranges: MV Peak E: 0.59 m/s (0.7-1.2 m/s) MV Peak A: 0.92 m/s (0.42-0.7 m/s) E/A Ratio: 0.64 (1.0-2.2) MV lateral e' 0.10 m/s MV medial e' 0.06 m/s MITRAL VALVE: Normal Ranges: MV DT: 268 msec (150-240msec) AORTIC VALVE: Normal Ranges: AoV Vmax: 1.78 m/s (<=1.7m/s) AoV Peak P.7 mmHg (<20mmHg) AoV Mean P.0 mmHg (1.7-11.5mmHg) LVOT Max Maddie: 1.06 m/s (<=1.1m/s) AoV VTI: 33.40 cm (18-25cm) LVOT VTI: 21.80 cm LVOT Diameter: 1.90 cm (1.8-2.4cm) AoV Area, VTI: 1.85 cm2 (2.5-5.5cm2) AoV Area,Vmax: 1.69 cm2 (2.5-4.5cm2) AoV Dimensionless Index: 0.65 RIGHT VENTRICLE: RV Basal 4.92 cm RV Mid 3.59 cm RV Major 8.6 cm TAPSE: 23.3 mm RV s' 0.11 m/s TRICUSPID VALVE/RVSP: Normal Ranges: Peak TR Velocity: 2.76 m/s RV Syst Pressure: 33.5 mmHg (< 30mmHg) [id number] Sam Ugalde MD Electronically signed on 06/21/2023 at 1:43:14 PM Final [facility] Work Phone: No Panel Informationon 06-08 [place] [address] ext-[phone], Nuclear Pharmacologic Stress Test Patient Name: RUTH LOPEZDAIN Ordering Provider: [id number] GARCIA Study Date: 05/31/2023 Reading Physician: Berny Garcia MD MRN/PID: [id number] Supervising Physician: [id number] Garcia MD Fellow: Date of /Age: 1 1945 / 77 years Fellow: Gender: M Nurse: N/A Admit Date: 05/31/2023 [employer]: Admission Status: Outpatient Room Attendants: N/A Height: 170.18 cm Technologist: Kristina Burkett Weight: 92.08 kg Additional Staff: BSA: 2.03 m2 BMI: 31.79 kg/m2 Patient Location: [facility] Stress Lab Study Type: CARDIOLOGY INTERPRETATION OF NUCLEAR STRESS Diagnosis/ICD: Atherosclerotic heart disease-I25.10 Indication: CAD CPT Codes: Stress Test Interpretation-55867; Stress Test Supervision-30193 Falls Risk: Low: Patient has low risk for sustaining a fall; environmental safety interventions in place. Study Details: Correct procedure and correct patient verified verbally and with ID Band checked. Patient History: Family history of coronary artery disease, family history of congestive heart failure, hyperlipidemia, hypertension, dyspnea and LBBB;DRUG ELUDING STENT TO RCA ON 01/25/18. Allergies: None. Smoker: Never. Diabetes: Yes, managed with Insulin. BMI: Obese >30. Medications: SEE ATTACHED SHEET. The patient did not take medications as prescribed. Patient Performance: Patient received a total of 0.4 mg of Regadenoson at 8:42:47 AM. Patient received a total of 33 mCi of Myoview at 8:43:02 AM. The patient did not exercise during infusion. The peak heart rate achieved was 81 bpm, which was 56 % of the age predicted target heart rate of 144 bpm. The resting blood pressure was 143/69 mmHg with a heart rate of 64 bpm. The patient developed nausea and shortness of breath during the stress exam. The symptoms resolved with rest 1 minute into recovery. The blood pressure response was normal. The test was terminated due to: completed lab protocol. Stress Stage Data: + +--+---- --+-------+ HR Sys BP Zavaleta BP + +--+---- --+-------+ Baseline Resting 64 143 69 + +--+---- --+-------+ Stage 1/2 60 + +--+---- --+-------+ Stage I 79 141 72 + +--+---- --+-------+ Recovery ECG: The heart rate recovery was normal. + +--+------+- ------+ HR Sys BP Zavaleta BP + +--+------+- ------+ Recovery I 80 141 75 + +--+------+- ------+ Recovery II 77 140 76 + +--+------+- ------+ Recovery III 76 135 78 + +--+------+- ------+ Recovery IV 73 137 78 + +--+------+- ------+ Summary: 1. Baseline EKG showing normal sinus rhythm with Left Bundle Branch Block. 2. EKG on exertion cannot be interpreted for ischemia due to baseline LBBB. 3. Nuclear image results are reported separately. [id number] Garcia MD Electronically signed on 05/31/2023 at 12:26:52 PM Final (Updated) Broderick Meier MD - 06/08/2023 [place] [address] ext-[phone], Nuclear Pharmacologic Stress Test Patient Name: RUTH MACKEY Ordering Provider: [id number] GARCIA Study Date: 05/31/2023 Reading Physician: Berny Garcia MD MRN/PID: [id number] Supervising Physician: Berny Garcia MD Fellow: Date of /Age: 1 1945 / 77 years Fellow: Gender: M Nurse: N/A Admit Date: 05/31/2023 [employer]: Admission Status: Outpatient Room Attendants: N/A Height: 170.18 cm Technologist: Kristina Burkett Weight: 92.08 kg Additional Staff: BSA: 2.03 m2 BMI: 31.79 kg/m2 Patient Location: [facility] Stress Lab Study Type: CARDIOLOGY INTERPRETATION OF NUCLEAR STRESS Diagnosis/ICD: Atherosclerotic heart disease-I25.10 Indication: CAD CPT Codes: Stress Test Interpretation-08151; Stress Test Supervision-10803 Falls Risk: Low: Patient has low risk for sustaining a fall; environmental safety interventions in place. Study Details: Correct procedure and correct patient verified verbally and with ID Band checked. Patient History: Family history of coronary artery disease, family history of congestive heart failure, hyperlipidemia, hypertension, dyspnea and LBBB;DRUG ELUDING STENT TO RCA ON 01/25/18. Allergies: None. Smoker: Never. Diabetes: Yes, managed with Insulin. BMI: Obese >30. Medications: SEE ATTACHED SHEET. The patient did not take medications as prescribed. Patient Performance: Patient received a total of 0.4 mg of Regadenoson at 8:42:47 AM. Patient received a total of 33 mCi of Myoview at 8:43:02 AM. The patient did not exercise during infusion. The peak heart rate achieved was 81 bpm, which was 56 % of the age predicted target heart rate of 144 bpm. The resting blood pressure was 143/69 mmHg with a heart rate of 64 bpm. The patient developed nausea and shortness of breath during the stress exam. The symptoms resolved with rest 1 minute into recovery. The blood pressure response was normal. The test was terminated due to: completed lab protocol. Stress Stage Data: + +--+---- --+-------+ HR Sys BP Zavaleta BP + +--+---- --+-------+ Baseline Resting 64 143 69 + +--+---- --+-------+ Stage 1/2 60 + +--+---- --+-------+ Stage I 79 141 72 + +--+---- --+-------+ Recovery ECG: The heart rate recovery was normal. + +--+------+- ------+ HR Sys BP Zavaleta BP + +--+------+- ------+ Recovery I 80 141 75 + +--+------+- ------+ Recovery II 77 140 76 + +--+------+- ------+ Recovery III 76 135 78 + +--+------+- ------+ Recovery IV 73 137 78 + +--+------+- ------+ Summary: 1. Baseline EKG showing normal sinus rhythm with Left Bundle Branch Block. 2. EKG on exertion cannot be interpreted for ischemia due to baseline LBBB. 3. Nuclear image results are reported separately. [id number] Garcia MD Electronically signed on 05/31/2023 at 12:26:52 PM Final (Updated) [facility] Work Phone: [facility] Work Phone: CARDIOLOGY INTERPRETATION OF NUCLEAR STRESSon 05-31-2023 CARDIOLOGY INTERPRETATION [place] [address] ext-[phone], Nuclear Pharmacologic Stress Test Patient Name: RUTH MACKEY Ordering Provider: [id number] GARCIA Study Date: 05/31/2023 Reading Physician: Berny Garcia MD MRN/PID: [id number] Supervising Physician: [id number] Broderick Garcia MD Fellow: Date of /Age: 1 1945 / 77 years Fellow: Gender: M Nurse: N/A Admit Date: 05/31/2023 [employer]: Admission Status: Outpatient Room Attendants: N/A Height: 170.18 cm Technologist: Kristina Burkett Weight: 92.08 kg Additional Staff: BSA: 2.03 m2 BMI: 31.79 kg/m2 Patient Location: [facility] Stress Lab Study Type: CARDIOLOGY INTERPRETATION OF NUCLEAR STRESS Diagnosis/ICD: Atherosclerotic heart disease-I25.10 Indication: CAD CPT Codes: Stress Test Interpretation-64485; Stress Test Supervision-83152 Falls Risk: Low: Patient has low risk for sustaining a fall; environmental safety interventions in place. Study Details: Correct procedure and correct patient verified verbally and with ID Band checked. Patient History: Family history of coronary artery disease, family history of congestive heart failure, hyperlipidemia, hypertension, dyspnea and LBBB;DRUG ELUDING STENT TO RCA ON 01/25/18. Allergies: None. Smoker: Never. Diabetes: Yes, managed with Insulin. BMI: Obese >30. Medications: SEE ATTACHED SHEET. The patient did not take medications as prescribed. Patient Performance: Patient received a total of 0.4 mg of Regadenoson at 8:42:47 AM. Patient received a total of 33 mCi of Myoview at 8:43:02 AM. The patient did not exercise during infusion. The peak heart rate achieved was 81 bpm, which was 56 % of the age predicted target heart rate of 144 bpm. The resting blood pressure was 143/69 mmHg with a heart rate of 64 bpm. The patient developed nausea and shortness of breath during the stress exam. The symptoms resolved with rest 1 minute into recovery. The blood pressure response was normal. The test was terminated due to: completed lab protocol. Stress Stage Data: + +--+---- --+-------+ HR Sys BP Zavaleta BP + +--+---- --+-------+ Baseline Resting 64 143 69 + +--+---- --+-------+ Stage 1/2 60 + +--+---- --+-------+ Stage I 79 141 72 + +--+---- --+-------+ Recovery ECG: The heart rate recovery was normal. + +--+------+- ------+ HR Sys BP Zavaleta BP + +--+------+- ------+ Recovery I 80 141 75 + +--+------+- ------+ Recovery II 77 140 76 + +--+------+- ------+ Recovery III 76 135 78 + +--+------+- ------+ Recovery IV 73 137 78 + +--+------+- ------+ Summary: 1. Baseline EKG showing normal sinus rhythm with Left Bundle Branch Block. 2. EKG on exertion cannot be interpreted for ischemia due to baseline LBBB. 3. Nuclear image results are reported separately. [id number] Broderick Garcia MD Electronically signed on 05/31/2023 at 12:26:52 PM Final [facility] CARDIOLOGY INTERPRETATION [place] [address] ext-[phone], Nuclear Pharmacologic Stress Test Patient Name: RUTH LOPEZDAIN Ordering Provider: [id number] BRODERICK GARCIA Study Date: 05/31/2023 Reading Physician: [id number] Garcia MD MRN/PID: [id number] Supervising Physician: Berny Garcia MD Fellow: Date of /Age: 1 1945 / 77 years Fellow: Gender: M Nurse: N/A Admit Date: 05/31/2023 [employer]: Admission Status: Outpatient Room Attendants: N/A Height: 170.18 cm Technologist: Kristina Burkett Weight: 92.08 kg Additional Staff: BSA: 2.03 m2 BMI: 31.79 kg/m2 Patient Location: [facility] Stress Lab Study Type: CARDIOLOGY INTERPRETATION OF NUCLEAR STRESS Diagnosis/ICD: Atherosclerotic heart disease-I25.10 Indication: CAD CPT Codes: Stress Test Interpretation-23091; Stress Test Supervision-[id number] Falls Risk: Low: Patient has low risk for sustaining a fall; environmental safety interventions in place. Study Details: Correct procedure and correct patient verified verbally and with ID Band checked. Patient History: Family history of coronary artery disease, family history of congestive heart failure, hyperlipidemia, hypertension, dyspnea and LBBB;DRUG ELUDING STENT TO RCA ON 01/25/18. Allergies: None. Smoker: Never. Diabetes: Yes, managed with Insulin. BMI: Obese >30. Medications: SEE ATTACHED SHEET. The patient did not take medications as prescribed. Patient Performance: Patient received a total of 0.4 mg of Regadenoson at 8:42:47 AM. Patient received a total of 33 mCi of Myoview at 8:43:02 AM. The patient did not exercise during infusion. The peak heart rate achieved was 81 bpm, which was 56 % of the age predicted target heart rate of 144 bpm. The resting blood pressure was 143/69 mmHg with a heart rate of 64 bpm. The patient developed nausea and shortness of breath during the stress exam. The symptoms resolved with rest 1 minute into recovery. The blood pressure response was normal. The test was terminated due to: completed lab protocol. Stress Stage Data: + +--+---- --+-------+ HR Sys BP Zavaleta BP + +--+---- --+-------+ Baseline Resting 64 143 69 + +--+---- --+-------+ Stage 1/2 60 + +--+---- --+-------+ Stage I 79 141 72 + +--+---- --+-------+ Recovery ECG: The heart rate recovery was normal. + +--+------+- ------+ HR Sys BP Zavaleta BP + +--+------+- ------+ Recovery I 80 141 75 + +--+------+- ------+ Recovery II 77 140 76 + +--+------+- ------+ Recovery III 76 135 78 + +--+------+- ------+ Recovery IV 73 137 78 + +--+------+- ------+ Summary: 1. Baseline EKG showing normal sinus rhythm with Left Bundle Branch Block. 2. EKG on exertion cannot be interpreted for ischemia due to baseline LBBB. 3. Nuclear image results are reported separately. [id number] Broderick Garcia MD Electronically signed on 05/31/2023 at 12:26:52 PM Final (Updated) [facility] Heart Perfusion W stress and W radionuclide Toni 05-31-2023 1. Small region prio r infarct in the basal lateral wall associated decreased wall motion. 2. The left ventricle is normal in size. 3. Decreased LV wall motion in the basal lateral wall with an LV EF estimated at 63%. I personally reviewed the images/study and I agree with the findings as stated. This study was interpreted at [place], [place]. Signed by: Feng Pride 05/31/2023 10:30 AM Dictation workstation: [id number] MMODAL Interpreted By: eFng Mckeon and Ohs Zachary STUDY: NUCLEAR STRESS TEST; 05/31/2023 10:12 am INDICATION: Signs/Symptoms:HEART DISEASE. COMPARISON: None available. ACCESSION NUMBER(S): [id number] ORDERING CLINICIAN: BRODERICK GARCIA TECHNIQUE: DIVISION OF NUCLEAR MEDICINE PHARMACOLOGIC STRESS MYOCARDIAL PERFUSION SCAN, ONE DAY PROTOCOL The patient received an intravenous dose of 10.28 mCi of Tc-99m Myoview and resting emission tomographic (SPECT) images of the myocardium were acquired. The patient then received an intravenous infusion of 0.4mg regadenoson (Lexiscan) followed by an additional dose of 33.0 mCi of Tc-99m Myoview. Stress phase SPECT images of the myocardium were then acquired. These included ECG-gated images to assess and quantify ventricular function. A low-dose, nondiagnostic regional CT was utilized for attenuation correction purposes. FINDINGS: Small fixed perfusion defect in the basal lateral wall associated decreased wall motion. The left ventricle is normal in size. Gated images demonstrate decreased LV wall motion in the basal lateral wall with an LV EF estimated at 63%. Attenuation correction CT images demonstrate no gross anatomic abnormalities. [facility] MMODAL Feng Pride MD - 05/31/2023 Interpreted By: Feng Pride and Ohs Zachary STUDY: NUCLEAR STRESS TEST; 05/31/2023 10:12 am INDICATION: Signs/Symptoms:HEART DISEASE. COMPARISON: None available. ACCESSION NUMBER(S): [id number] ORDERING CLINICIAN: BRODERICK GARCIA TECHNIQUE: DIVISION OF NUCLEAR MEDICINE PHARMACOLOGIC STRESS MYOCARDIAL PERFUSION SCAN, ONE DAY PROTOCOL The patient received an intravenous dose of 10.28 mCi of Tc-99m Myoview and resting emission tomographic (SPECT) images of the myocardium were acquired. The patient then received an intravenous infusion of 0.4mg regadenoson (Lexiscan) followed by an additional dose of 33.0 mCi of Tc-99m Myoview. Stress phase SPECT images of the myocardium were then acquired. These included ECG-gated images to assess and quantify ventricular function. A low-dose, nondiagnostic regional CT was utilized for attenuation correction purposes. FINDINGS: Small fixed perfusion defect in the basal lateral wall associated decreased wall motion. The left ventricle is normal in size. Gated images demonstrate decreased LV wall motion in the basal lateral wall with an LV EF estimated at 63%. Attenuation correction CT images demonstrate no gross anatomic abnormalities. IMPRESSION: 1. 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 2. The left ventricle is normal in size. 3. Decreased LV wall motion in the basal lateral wall with an LV EF estimated at 63%. I personally reviewed the images/study and I agree with the findings as stated. This study was interpreted at [place], [place]. Signed by: Feng Pride 05/31/2023 10:30 AM Dictation workstation: [id number] [facility] Work Phone: Radiology Study observation (narrative) [facility] Work Phone: NM Heart Perfusion W stress and W radionuclide IVOrdered By: Feng Pride on 05-31-2023 [facility] Work Phone: NUCLEAR STRESS TESTon 2022 NUCLEAR STRESS TEST Interpreted By: Feng Mckeon and Ohs Zachary STUDY: NUCLEAR STRESS TEST; 05/31/2023 10:12 am INDICATION: Signs/Symptoms:HEART DISEASE. COMPARISON: None available. ACCESSION NUMBER(S): [id number] ORDERING CLINICIAN: BRODERICK GARCIA TECHNIQUE: DIVISION OF NUCLEAR MEDICINE PHARMACOLOGIC STRESS MYOCARDIAL PERFUSION SCAN, ONE DAY PROTOCOL The patient received an intravenous dose of 10.28 mCi of Tc-99m Myoview and resting emission tomographic (SPECT) images of the myocardium were acquired. The patient then received an intravenous infusion of 0.4mg regadenoson (Lexiscan) followed by an additional dose of 33.0 mCi of Tc-99m Myoview. Stress phase SPECT images of the myocardium were then acquired. These included ECG-gated images to assess and quantify ventricular function. A low-dose, nondiagnostic regional CT was utilized for attenuation correction purposes. FINDINGS: Small fixed perfusion defect in the basal lateral wall associated decreased wall motion. The left ventricle is normal in size. Gated images demonstrate decreased LV wall motion in the basal lateral wall with an LV EF estimated at 63%. Attenuation correction CT images demonstrate no gross anatomic abnormalities. IMPRESSION: 1. 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 2. The left ventricle is normal in size. 3. Decreased LV wall motion in the basal lateral wall with an LV EF estimated at 63%. I personally reviewed the images/study and I agree with the findings as stated. This study was interpreted at [facility], [place], [place]. Signed by: Feng Pride 05/31/2023 10:30 AM Dictation workstation: [id number] [facility] Tobacco Screening.on 023 Tobacco use status [facility] b) No [facility] [employer] Work Phone: Office Visit (Cardiology)on 09-25-2021 Follow-up visit Diagnoses/Problems Assessed Severe obstructive sleep apnea (327.23) (G47.33) CAD S/P percutaneous coronary angioplasty (414.01,V45.82) (I25.10,Z98.61) Orders CAD S/P percutaneous coronary angioplasty Changed: From Atorvastatin Calcium 40 MG Oral Tablet TAKE ONE TABLET BY MOUTH DAILY To Atorvastatin Calcium 80 MG Oral Tablet TAKE 1 TABLET AT BEDTIME Severe obstructive sleep apnea Adult Sleep Medicine Referral Evaluation and Treatment Evaluate AND Treat Status: Hold For - Scheduling Requested for: [id number] Chief Complaint Coronary artery disease History of Present [id number]-[id number] male here to establish care regarding the following conditions: Problem #1 coronary artery disease status post ostial RCA stent -Current medications include aspirin 81 mg, atorvastatin 40 mg, Toprol 100 mg, isosorbide 60 mg daily. Problem #2 hypertension/hyperlipidem ia/type 2 diabetes mellitus -No recent lipid panels in chart. Currently denies any chest discomfort or shortness of breath. Denies any orthopnea/PND/lower extremity edema. Had a sleep study a few years ago and was told to wear a CPAP; refused then but is more agreeable at present. Active Problems Problems CAD S/P percutaneous coronary angioplasty (414.01,V45.82) (I25.10,Z98.61) Chronic lumbar radiculopathy (724.4) (M54.16) Degeneration of intervertebral disc at L5-S1 level (722.52) (M51.37) Degeneration of intervertebral disc of lumbosacral region (722.52) (M51.37) Diabetes (250.00) (E11.9) Displacement of lumbar disc with radiculopathy (722.10,724.4) (M51.16) HTN (hypertension), benign (401.1) (I10) Hyperlipidemia (272.4) (E78.5) Hypothyroidism (244.9) (E03.9) Irregular heart beat (427.9) (I49.9) Lumbosacral spondylosis (721.3) (M47.817) Neurogenic claudication due to lumbar spinal stenosis (724.03) (M48.062) Preoperative testing (V72.84) (Z01.818) Severe obstructive sleep apnea (327.23) (G47.33) Surgical History Problems History of Cardiac catheterization With stent placed History of Colonoscopy History of Epidural steroid injection Managed By: Kendall Mcgowan (Pain Medicine) L4-5 History of Epidural steroid injection Managed By: Kendall Mcgowan (Pain Medicine) L4-5 History of Epidural steroid injection Managed By: Kendall Mcgowan (Pain Medicine) L4-5 History of Epidural steroid injection Managed By: Kendall Mcgowan (Pain Medicine) L4-5 History of Epidural steroid injection Managed By: Kendall Mcgowan (Pain Medicine) L4-5 History of Epidural steroid injection Managed By: Kendall Mcgowan (Pain Medicine) R L4 TFESI History of Esophagogastroduodenoscop y History of Intra-articular corticosteroid injection Managed By: Kendall Mcgowan (Pain Medicine) R SIJ History of Intra-articular corticosteroid injection Managed By: Kendall Mcgowan (Pain Medicine) R SIJ History of Kidney surgery Kidney stone extraction History of Thyroid biopsy Current Meds Medication NameInstruction Aspirin 81 81 MG TBECTAKE 1 TABLET DAILY. Atorvastatin Calcium 40 MG Oral TabletTAKE ONE TABLET BY MOUTH DAILY Calcium TABS glipiZIDE 5 MG Oral TabletTAKE 1 TABLET DAILY. Isosorbide Mononitrate ER 60 MG Oral Tablet Extended Release 24 HourTAKE ONE TABLET BY MOUTH EVERY MORNING Levothyroxine Sodium 200 MCG Oral TabletTAKE 1 TABLET DAILY. Lisinopril 10 MG Oral TabletTAKE 1 TABLET DAILY. Mag-Ox 400 TABSTAKE 1 TABLET DAILY. Metoprolol Succinate ER 100 MG Oral Tablet Extended Release 24 Hour Nitroglycerin 0.4 MG Sublingual Tablet SublingualTAKE DIRECTED. Plavix 75 MG Oral TabletTAKE 1 TABLET DAILY. Tamsulosin HCl - 0.4 MG Oral CapsuleTAKE 1 CAPSULE Daily Vitamin B-12 1000 MCG Oral TabletTAKE 1 TABLET DAILY DIRECTED. Vitamin D 1000 UNIT TABSTAKE 1 TABLET DAILY. Allergies Medication No Known Drug Allergies Recorded By: Elmira Pack; 06/01/2019 8:53:44 AM Family History Mother Family history of cardiac disorder (V17.49) (Z82.49) Family history of diabetes mellitus (V18.0) (Z83.3) Father Family history of diabetes mellitus (V18.0) (Z83.3) Family history of malignant neoplasm (V16.9) (Z80.9) Brother Family history of Alcohol abuse Family history of malignant neoplasm (V16.9) (Z80.9) Social History Problems Daily caffeine consumption 1-2 CUPS COFFEE 3 HOT TEAS Denies alcohol consumption (V49.89) (Z78.9) No illicit drug use Non-smoker (V49.89) (Z78.9) Review of Systems Constitutional: Denies any fever or chills Eyes: Denies any eye pain or blurry vision ENT: Denies any ear pain or hearing loss Cardiovascular: The heart rate is not slow, the heart rate is not fast Respiratory: Denies any asthma/wheezing Gastrointestinal: Denies any susi colored stools or fatty food intolerance Genitourinary: Denies any blood in the urine or pelvic pain Musculoskeletal: Denies any swelling in the joints or difficulty walking Skin: Denies any skin lumps or skin lesions Neurological: Denies any diz (more content not included)... Normal [facility] Tobacco Screening.on 022 Fall risk assessment a) No falls within the last year [facility] [address] [employer] Work Phone: Tobacco use status [facility] b) No [facility] -[address] Work Phone: CALCIUMon 02-24-2021 Calcium [Mass/Vol] 9.4 mg/dL Normal 8.6 - 10.3 [facility] Comment on above: Performed By: #### C A #### [place] [id number] CREATININEon 02-24-2021 Creatinine [Mass/Vol] 1.58 mg/dL High 0.50 - 1.30 [facility] Comment on above: Performed By: #### C REAT #### [place] [id number] GFR- AM. 52 mL/min/1.73m2 Abnormal >60 [facility] Comment on above: Result Comment: CALC ULATIONS OF ESTIMATED GFR ARE PERFORMED USING THE MDRD STUDY EQUATION FOR THE IDMS-TRACEABLE CREATININE METHODS. CLIN CHEM 2007;53:766-72 Performed By: #### C REAT #### [place] [address] GFR-NON AM. 43 mL/min/1.73m2 Abnormal >60 [facility] Comment on above: Performed By: #### C REAT #### [place] [id number] ELECTROLYTE PANELon 02-25-20 21 Anion gap [Moles/Vol] 11 mmol/L Normal 10 - 20 [facility] Comment on above: Performed By: #### E LECT #### [place] [id number] Chloride [Moles/Vol] 101 mmol/L Normal 98 - 107 [facility] Comment on above: Performed By: #### E LECT #### [address] [address] HCO3 (Bld) [Moles/Vol] 28 mmol/L Normal 21 - 32 [facility] Comment on above: Performed By: #### E LECT #### [place] [id number] Potassium [Moles/Vol] 4.2 mmol/L Normal 3.5 - 5.3 [facility] Comment on above: Performed By: #### E LECT #### [address] [address] Sodium [Moles/Vol] 136 mmol/L Normal 136 - 145 [facility] Comment on above: Performed By: #### E LECT #### [address] [address] HGB + HCTon 02-24-2021 Hematocrit (Bld) [Volume fraction] 37.6 % Low 41.0 - 52.0 [facility] Comment on above: Performed By: #### H H #### [address] [address] Hemoglobin (Bld) [Mass/Vol] 12.6 g/dL Low 13.5 - 17.5 [facility] Comment on above: Performed By: #### H H #### [address] [address] PHOSPHORUSon 02-24-2021 Phosphate [Mass/Vol] 2.5 mg/dL Normal 2.5 - 4.9 [facility] Comment on above: Result Comment: The performance characteristics of phosphorus testing in heparinized plasma have been validated by the individual laboratory site where testing is performed. Testing on heparinized plasma is not approved by the FDA; however, such approval is not necessary. Performed By: #### P HOS #### [address] [address] TOTAL PROTEIN, URINE SPOTon 02-24-2021 CREATININE,URINE 151.0 mg/dL Normal 20.0 - 370.0 [facility] Comment on above: Performed By: #### T PS2 #### [address] [address] T. PROTEIN/CREAT RATIO 0.13 mg/mg Creat Normal 0.00 - 0.17 [facility] Comment on above: Performed By: #### T PS2 #### [address] [address] TOTAL PROT,URINE SPOT 19 mg/dL Normal 5 - 25 [facility] Comment on above: Performed By: #### T PS2 #### [address] [address] UREA NITROGENon 02-24-2021 Urea nitrogen [Mass/Vol] 26 mg/dL High 6 - 23 [facility] Comment on above: Performed By: #### U THOM #### [address] [address] URIC ACIDon 02-24-2021 Urate [Mass/Vol] 7.8 mg/dL High 4.0 - 7.5 [facility] Comment on above: Result Comment: Yola puncture immediately after or during the administration of Metamizole may lead to falsely low results. Testing should be performed immediately prior to Metamizole dosing. Performed By: #### U HUNG #### [address] [address] Otheron 04-16-2020 US Thyroid gland Interpreted by: ALFONSO LYN04/18/20 04:43MRN: [id number] Name: RUTH MACKEY STUDY:US THYROID; 04/16/2020 3:46 pm INDICATION:Nontoxic single thyroid nodule. COMPARISON:None. ORDERING CLINICIAN:CHRISTINA MAYA TECHNIQUE:Grayscale and color Doppler ultrasound of the thyroid. FINDINGS:Heterogenous hypoechoic thyroid gland. Hyperechoic solid nodule lowerpole right lobe measures 8 mm. Another such finding in the centralleft lobe measures 34 mm (image 45 of 56). There is increasedvascularity throughout the thyroid gland on color Dopplerinterrogation. RIGHT LOBE:4.1 x 1.4 x 1.5 cm LEFT LOBE:5.5 x 2.9 x 3.0 cm ISTHMUS:0.2 cm IMPRESSION:Multinodular goiter, as discussed above. This includes a mildlysuspicious hyperechoic solid nodule in the central left lobemeasuring 34 mm. FNA biopsy under ultrasound guidance is recommendedfor further evaluation.Electronically signed by: CHARLES LYN 04/18/20 04:43 Normal [facility] [address] Work Phone: Comment on above: Ordering Provider: Jasper MAYA [id number] US THYROIDon 04-16-2020 US THYROID Patient Name: RUTH MACKEY STUDY: US THYROID; 04/16/2020 3:46 pm INDICATION: Nontoxic single thyroid nodule. COMPARISON: None. ACCESSION NUMBER(S): [id number] ORDERING CLINICIAN: CHRISTINA MAYA TECHNIQUE: Grayscale and color Doppler ultrasound of the thyroid. FINDINGS: Heterogenous hypoechoic thyroid gland. Hyperechoic solid nodule lower pole right lobe measures 8 mm. Another such finding in the central left lobe measures 34 mm (image 45 of 56). There is increased vascularity throughout the thyroid gland on color Doppler interrogation. RIGHT LOBE: 4.1 x 1.4 x 1.5 cm LEFT LOBE: 5.5 x 2.9 x 3.0 cm ISTHMUS: 0.2 cm IMPRESSION: Multinodular goiter, as discussed above. This includes a mildly suspicious hyperechoic solid nodule in the central left lobe measuring 34 mm. FNA biopsy under ultrasound guidance is recommended for further evaluation. Electronically signed by: CHARLES LYN MD [facility] Provider Note - ED v2on 03-16 Provider Note - ED v2 Provider Note - ED v2: Chart Review: HISTORY OF PRESENTING ILLNESS RUTH is a 74 year old Male and was seen by me at 28-Mar-2020 11:49. Triage Information: Most recent Vital Sign Value Date PAST MEDICAL HISTORY ATTESTATION: I have reviewed and confirmed nurse's/medic's notes for patient's medications, allergies, medical history, and surgical history ALLERGIES/INTOLERANCES: No Known Allergies HEALTH HISTORY: No documented data. OUTPATIENT MEDICATIONS: Home Medications Review Status for Reconciliation: Complete Med Status: Patient Currently Takes Medications Drug Name: magnesium amino acids chelate 100 mg oral tablet Instructions: 1 tab(s) orally 3 times a day Drug Name: glipiZIDE 2.5 mg oral tablet, extended release Instructions: 1 tab(s) orally once a day Drug Name: Low Dose ASA 81 mg oral tablet Instructions: null Drug Name: lisinopril 5 mg oral tablet Instructions: 1 tab(s) orally once a day Drug Name: clopidogrel 75 mg oral tablet Instructions: tab(s) orally once a day Drug Name: metoprolol succinate 25 mg oral tablet, extended release Instructions: 1 tab(s) orally once a day Drug Name: tamsulosin 0.4 mg oral capsule Instructions: 1 cap(s) orally once a day Drug Name: levothyroxine 13 mcg (0.013 mg) oral capsule Instructions: 1 cap(s) orally once a day SIGNIFICANT EVENTS: No documented data. RESULTS/VITAL SIGNS VITAL SIGNS: T PRBP SpO2O2(LPM) %FiO2 Method 28-Mar-2020 11:46:[id number] MEDICAL DECISION MAKING/ED COURSE MDM/ED COURSE: This note was generated with voice recognition software and may contain errors including spelling, grammar, syntax, and misrecognization of what was dictated Chief Complaint Left elbow swelling History of Present Illness Patient presents in no apparent distress with a one-week history of left elbow swelling. Patient denies any pain or discomfort or change in range of motion or strength. Patient offers no further complaints. Patient has no history of known injury states nothing seems to make his symptoms that are or worse. Review of Systems 10 systems reviewed negative with exception of history of present illness listed above Physical Examination General: Alert and oriented, No acute distress. Eye: Pupils are equal, round and reactive. HENT: Normocephalic Neck: Supple, Non-tender, No lymphadenopathy. Respiratory: Respirations are non-labored, Symmetrical chest wall expansion Cardiovascular: Capillary refill is less than 3 seconds to the distal left hand. Gastrointestinal: Soft, non-tender, non-distended Musculoskeletal: Normal range of motion, normal strength, no tenderness, no swelling. Integumentary: [place], warm, dry, and Intact. Olecranon bursitis is noted to the left elbow with a sac protruding from the left elbow without redness Neurologic: Alert, Oriented, Normal sensory, Normal motor function. Cognition and Speech: Oriented, Speech clear and coherent. Psychiatric: Cooperative, Appropriate mood & affect. Impression and Plan Course: Unchanged Plan: Patient's left elbow was cleansed with Betasept and an 18-gauge needle was placed through the raised skin wheal and advanced into the most dependent aspect of the bursa. Clear red fluid was aspirated. 40 mg methylprednisolone and 1 mL of 1% lidocaine were then injected into the elbow joint from the lateral approach. Patient tolerated this well and a pressure dressing was then applied. Patient was instructed to follow-up with his primary care provider in 3-5 days for any increase in severity symptoms or additional concerns. Patient agrees a plan of care, questions were encouraged and answered. Patient Instructions: Bursitis CLINICAL IMPRESSION Diagnosis/Annotation: ED Dx Name:Bursitis of left elbow Code:M70.32 Dispostion: discharged Type: home ATTESTATION CRITICAL CARE TIME Is this a critically ill patient: no Electronic Signatures: Rome Ahuja (HAND TACKER-DISPENSING LEAD) (Signed 28-Mar-2020 12:34) Authored: Provider Note - ED v2 Last Updated: 28-Mar-2020 12:34 by Rome Ahuja (HAND TACKER-DISPENSING LEAD) Normal [facility] Basic Metabolic Panelon 02-0 Anion gap [Moles/Vol] 10.0 mmol/L Normal 6.0-18.0 [facility] Comment on above: Performed By: #### 2 4321-2 ####[facility].NITIN [facility], [address], [place]. Calcium [Mass/Vol] 8.4 mg/dL Low 8.9-10.3 [facility] Comment on above: Performed By: #### 2 4321-2 ####[facility], [address] [place], [place]. Chloride [Moles/Vol] 98 mmol/L Normal 98-107 [facility] Comment on above: Performed By: #### 2 4321-2 ####[facility], [address] [place], [place]. CO2 [Moles/Vol] 27 mmol/L Normal 22-32 [facility] Comment on above: Performed By: #### 2 4321-2 ####[facility], [address] [place], [place]. Creatinine [Mass/Vol] 1.63 mg/dL High 0.66-1.30 [facility] Comment on above: Performed By: #### 2 4321-2 ####[facility], [address] [place], [place]. Glucose [Mass/Vol] 242 mg/dL High 70-99 [facility] Comment on above: Result Comment: U pdated ADA Reference Range A normal fasting glucose concentration is less than 100 mg/dL. An impaired fasting glucose concentration is 100-125 mg/dL. A provisional diagnosis of diabetes mellitus can be made when a fasting glucose concentration is greater than 125 mg/dL. Performed By: #### 2 4321-2 ####[facility], [address] [place] Potassium [Moles/Vol] 3.8 mmol/L Normal 3.6-5.1 [facility] Comment on above: Performed By: #### 2 4321-2 ####[facility], [address] [place] Sodium [Moles/Vol] 135 mmol/L Low 136-145 [facility] Comment on above: Performed By: #### 2 4321-2 ####[facility], [address] [place] Urea nitrogen (BldV) [Mass/Vol] 26 mg/dL High 8-20 [facility] Comment on above: Performed By: #### 2 4321-2 ####[facility], [address] [place] Glucose POCT (Uploaded)on Glucose [Mass/Vol] 241 mg/dL High 70-99 [facility] Comment on above: Result Comment: Chely tment ranges and critical values established by Patient Care Services. All follow-up actions were taken by Patient Care Services. Performed By: #### 2 430-8 ####[facility] Glucose [Mass/Vol] 235 mg/dL High 70-99 [facility] Comment on above: Result Comment: Chely tment ranges and critical values established by Patient Care Services. All follow-up actions were taken by Patient Care Services. Performed By: #### 2 430-8 ####[facility] C[facility] OR Nursingon 09-18-2019 OR Nursing CO NA OR Nursing Rec ord Summary Primary Physician: Kristin Carrillo DO Finalized Date/Time: 09/18/19 14:11:54 Pt. Name: RUTH MACKEY /Sex: 1945 Male Med Rec #: [id number] Physician: Kristin Carrillo DO Financial #: [id number] Pt. Type: I Room/Bed: [address] [place] [address] Admit/Disch: 09/14/19 04:52:00 - 09/15/19 20:40:00 Institution: [facility] NA OR Case Times Entry 1 Patient Times Patient In Room 09/14/19 06:47:00 Patient Out Room 09/14/19 12:17:00 Surgical Times Start Time 09/14/19 07:22:00 Stop Time 09/14/19 12:00:00 Last Modified By: Elyse Munoz RN 09/14/19 12:15:48 CO NA OR Delays Entry 1 Delay Reason Pre-Op Patient Not Duration (minutes) 2 Min Prepared Last Modified By: Elyse Munoz RN 09/14/19 07:23:23 CO NA OR Case Attendees Entry 1 Entry 2 Entry 3 Case Attendee Kristin Carrillo DO, DO, David R Sima CRNA, Katherine L Role Performed Primary Surgeon Surgeon Nurse Video Game Animator Time In 09/14/19 06:47:00 09/14/19 07:44:00 09/14/19 06:47:00 Time Out 09/14/19 08:05:00 09/14/19 08:08:00 09/14/19 07:15:00 Procedure Fusion Lumbar Fusion Lumbar Fusion Lumbar Anterior(Lumbar) Anterior(Lumbar) Anterior(Lumbar), Fusion Lumbar Posterior(Lumbar) Attendee Comment Relief Reason Last Modified By: Alexander RN Elyse RN Elyse RN Elyse 09/14/19 12:16:06 09/14/19 12:16:06 09/14/19 12:16:06 Entry 4 Entry 5 Entry 6 Case Attendee Sandeep WOODSON, Patricia Campoverde RN , Elyse Dietrich RN Role Performed Anesthesiologist track vehicle repairer track vehicle repairer Time In 09/14/19 06:47:00 09/14/19 06:47:00 09/14/19 06:47:00 Time Out 09/14/19 12:17:00 09/14/19 08:05:00 09/14/19 11:00:00 Procedure Fusion Lumbar Fusion Lumbar Fusion Lumbar Anterior(Lumbar), Anterior(Lumbar), Anterior(Lumbar), Fusion Lumbar Fusion Lumbar Fusion Lumbar Posterior(Lumbar) Posterior(Lumbar) Posterior(Lumbar) Attendee Comment cover orientation Relief Reason Last Modified By: Alexander RN , Elyse Munoz RN , Elyse Munoz RN , Susieva M 09/14/19 12:16:06 09/14/19 12:16:06 09/14/19 12:16:06 Entry 7 Entry 8 Entry 9 Case Attendee Maite Jerez, Nicolette Schwartz Role Performed First Scrub Second Scrub Assistive Personnel Time In 09/14/19 06:47:00 09/14/19 06:47:00 09/14/19 06:47:00 Time Out 09/14/19 10:24:00 09/14/19 11:35:00 09/14/19 12:17:00 Procedure Fusion Lumbar Fusion Lumbar Fusion Lumbar Anterior(Lumbar), Anterior(Lumbar), Anterior(Lumbar), Fusion Lumbar Fusion Lumbar Fusion Lumbar Posterior(Lumbar) Posterior(Lumbar) Posterior(Lumbar) Attendee Comment Relief Reason Last Modified By: Alexander RN , Elyse Munoz RN , Elyse Munoz RN , Susieva France 09/14/19 12:16:06 09/14/19 12:16:06 09/14/19 12:16:06 Entry 10 Entry 11 Entry 12 Case Attendee Rochelle Jose, Attendee Other Case, Attendee Other Role Performed Physician Metallic Yarn Slitting Machine Operator Assistive Personnel Coke Still Cleaner Time In 09/14/19 06:47:00 09/14/19 06:47:00 09/14/19 07:26:00 Time Out 09/14/19 12:01:00 09/14/19 12:17:00 09/14/19 11:40:00 Procedure Fusion Lumbar Fusion Lumbar Fusion Lumbar Anterior(Lumbar), Anterior(Lumbar), Anterior(Lumbar) Fusion Lumbar Fusion Lumbar Posterior(Lumbar) Posterior(Lumbar) Attendee Comment sal Means Adwoa Relief Reason Last Modified By: Alexander RN , Elyse Munoz RN , Elyse Munoz RN , Veneva M 09/14/19 12:16:06 09/14/19 12:16:06 09/14/19 12:16:06 Entry 13 Entry 14 Entry 15 Case Attendee Case, Attendee Other Maureen, Jarad Kirkland Role Performed Coke Still Cleaner Cell Saver Pepper Cutter Ground Intelligence Officer Time In 09/14/19 07:26:00 09/14/19 06:22:00 09/14/19 06:47:00 Time Out 09/14/19 11:41:00 09/14/19 10:30:00 09/14/19 11:35:00 Procedure Fusion Lumbar Fusion Lumbar Fusion Lumbar Anterior(Lumbar), Anterior(Lumbar), Anterior(Lumbar), Fusion Lumbar Fusion Lumbar Fusion Lumbar Posterior(Lumbar) Posterior(Lumbar) Posterior(Lumbar) Attendee Comment Scott Conklin cover Relief Reason Last Modified By: Alexander RN , Elyse Munoz RN , Elyse Munoz RN Elyse 09/14/19 12:16:06 09/14/19 12:26:35 09/14/19 12:26:35 Entry 16 Entry 17 Entry 18 Case Attendee Misael RN , Isabel Carrillo DO , Kristin Munoz RN , Elyse Hough Role Performed track vehicle repairer Surgeon track vehicle repairer Time In 09/14/19 08:00:00 09/14/19 08:39:00 09/14/19 08:15:00 Time Out 09/14/19 08:15:00 09/14/19 11:38:00 09/14/19 10:53:00 Procedure Fusion Lumbar Fusion Lumbar Fusion Lumbar Anterior(Lumbar) Anterior(Lumbar) Posterior(Lumbar) Attendee Comment COVERING Relief Reason Break Last Modified By: Alexander RN , Elyse Munoz RN , Elyse Munoz RN Elyse 09/18/19 07:45:42 09/14/19 12:16:06 09/14/19 12:16:06 Entry 19 Entry 20 Entry 21 Case Attendee Gilles LOMBARDI , George Parsons STAFF ENGINEER , Georgi Diaz STAFF ENGINEER , Zahra Stewart Role Performed track vehicle repairer Nurse Video Game Animator Nurse Video Game Animator Time In 09/14/19 08:30:00 09/14/19 07:15:00 09/14/19 10:53:00 Time Out 09/14/19 12:17:00 09/14/19 07:30:00 09/14/19 11:20:00 Procedure Fusion Lumbar Fusion Lumbar Fusion Lumbar Posterior(Lumbar) Anterior(Lumbar) Anterior(Lumbar), Fusion Lumbar Posterior(Lumbar) Attendee Comment Relief Reason Last Modified By: Alexander RN , Elyse Munoz RN , Elyse Munoz RN , Susieva M 09/14/19 12:16:06 09/14/19 12:16:06 09/14/19 12:16:06 Entry 22 Entry 23 Entry 24 Case Attendee Sandeep WOODSON, Bachar Emily CONCHITA , Maite Chavez Role Performed Anesthesiologist Nurse Video Game Animator First Scrub Time In 09/14/19 10:53:00 09/14/19 07:30:00 09/14/19 11:05:00 Time Out 09/14/19 11:20:00 09/14/19 12:17:00 09/14/19 12:17:00 Procedure Fusion Lumbar Fusion Lumbar Fusion Lumbar Posterior(Lumbar) Posterior(Lumbar) Posterior(Lumbar) Attendee Comment Relief Reason Lunch Last Modified By: Alexander RN , Elyse Munoz RN , Elyse Munoz RN , Elyse Hough 09/14/19 12:16:06 09/14/19 12:16:06 09/14/19 12:16:06 Entry 25 Entry 26 Entry 27 Case Attendee Candice DOMINGUEZ , Rome Mays RN , Elyse Duron Role Performed Ground Intelligence Officer Care Administrative Tech track vehicle repairer Time In 09/14/19 06:47:00 09/14/19 10:30:00 09/14/19 11:15:00 Time Out 09/14/19 11:35:00 09/14/19 11:50:00 09/14/19 11:52:00 Procedure Fusion Lumbar Fusion Lumbar Fusion Lumbar Anterior(Lumbar), Posterior(Lumbar) Posterior(Lumbar) Fusion Lumbar Posterior(Lumbar) Attendee Comment cover Relief Reason Last Modified By: Alexander RN , Elyse Munoz RN , Elyse Munoz RN , Veneva M 09/14/19 12:25:19 09/14/19 12:16:06 09/14/19 12:16:06 CO NA OR General Case Chinese Herbalist 1 OR CO NA 02 ASA Class 3 Case Wound Class Clean Specialty Orthopedic Surgery Case Level Spine Complex Diagnosis Preop Diagnosis m41.86 [id number] m54.16 Postop Same As Preop Yes Postop Diagnosis m41.86 [id number] m54.16 This is a down time No record. Last Modified By: Elyse Munoz RN 09/14/19 07:10:13 CO NA OR Surgical Procedures Entry 1 Entry 2 Procedure Fusion Lumbar Anterior Fusion Lumbar Posterior Primary Procedure No Yes Modifiers Lumbar Lumbar Procedure Wound Clean Clean Class Primary Surgeon Kristin Carrillo DO, DO, Donald J Surgical Service Orthopedic Surgery Orthopedic Surgery Anesthesia Type General General Procedure Performed L5-s1 ALIF L2-s1 psf Start 09/14/19 07:22:00 09/14/19 08:42:00 Stop 09/14/19 08:08:00 09/14/19 12:00:00 Last Modified By: Elyse Munoz RN, RN, Veneva M 09/14/19 08:46:18 09/14/19 12:16:36 CO NA OR Catheters, Drains, and Tubes Entry 1 Entry 2 Device Type BARD LF 16FR TUCKER ORTEGA DRAIN 10 FR ROUND TRAY - [id number] Present on Arrival? No No Location BLADDER BACK Inserted By Gilles LOMBARDI , Kristin Martinez DO Comments DC'd at End of Case? No No DC'd By Last Modified By: Elyse Munoz RN, RN, Veneva M 09/14/19 07:24:04 09/14/19 11:42:36 CO NA OR Patient Positioning Entry 1 Entry 2 Abdomen Pre Soft Firm Procedure Skin Condition Warm, Dry, Intact Warm, Dry, Intact Before Body Position Supine Prone Pressure Points Yes Yes Assessed? Right Arm Position Other On armboard Left Arm Position Other On armboard Arm Secured Right, Left Right, Left Positioning Device Bed Specialty Bed Specialty, Foam, Pillows Right Leg Position Flexed Flexed Left Leg Position Flexed Flexed Safety Strap Applied Yes Yes Safety Strap Thighs Thighs Location Positioned By Nicolette Tuttle Sima Joyce, Carley, Sima CRNA, Katherine L, CRNA, Katherine L, Brown RN , Gilles Vazquez RN , George REDMOND, Rochelle Positioning Comment PATIENT IS POSITIONED SUPINE ON JENNA TABLE; ARMS ARE TUCKED ACROSS CHEST WITH BED SHEET AND TAPE; ARMS ARE PADDED WITH FOAM; PILLOW BENEATH KNEES AND FOAM PROTECTING HEELS Procedure Fusion Lumbar Fusion Lumbar Anterior(Lumbar) Posterior(Lumbar) Last Modified By: Elyse Munoz RN, RN, Veneva M 09/14/19 12:27:44 09/14/19 09:04:36 CO NA OR Antithrombolytic Devices Entry 1 IPC Intermittent Right, Left IPC Setting PRE SET Pneumatic Compression IPC Size Knee Bariatric No FAISAL Hose Foot Pump Last Modified By: Elyse Munoz RN 09/14/19 07:27:48 CO NA OR Skin Prep Entry 1 Entry 2 Hair Removal Method Clippers None Site Groin/ lower abdomen Performed By Rochelle Jose Skin Prep Prep Agents Chlorhexidine Gluconate Chlorhexidine Gluconate 2% w Alcohol 2% w Alcohol Prep Site ABDOMEN BACK Prep by George Campoverde RN, RN, Siriah Procedure Fusion Lumbar Fusion Lumbar Anterior(Lumbar) Posterior(Lumbar) Last Modified By: Elyse Munoz RN, RN, Veneva M 09/14/19 07:28:59 09/14/19 12:27:58 CO NA OR Fire Risk Assessment Entry 1 Alcohol Based Prep Yes Solution Dry Time >3 Minutes or According to Manufactures Instructions. No Pooling Observed. (No Alcohol Prep used Select N/A) Fire Risk Factors Yes = 1, No or N/A = 0 Procedure No Open O2 Source No Site/Incision Above (Face Mask/Nasal Xyphoid Process Cannula) Ignition source Yes Fire Risk Total 1 (Cautery, Laser, Score Fiberoptic Light Source) Last Modified By: Elyse Munoz RN 09/14/19 07:29:10 Post-Care Text: Standard Fire Safety precautions - Score 1 or 2 Prep drying time - minimum three minutes Protected heat source (i.e bovie samuel) Standard draping procedure HIGH RISK FIRE PRACTICES - SCORE 3 *RN verbalizes to the team the presence of high-risk score and verifies the fire triangle *Write High Risk on the white board *Verbally confirm lowest effective setting on the heat source *Minimize 02 entrapment by proper draping of the patient *Encourage use of wet sponges *Available basin with sterile water and bulb syringe for suppression *Anesthesia Awareness and communication of oxygen flows/concentration *Allow for dispersion of 02 at least 1 minute before and during electrosurgical and laser use and communicate to surgeon *Use lowest tolerable concentration of 02 (less than 30% when able) CO NA OR Surgical Safety Checklist Entry 1 Entry 2 Entry 3 TIme Out Verified 09/14/19 07:22:00 09/14/19 07:46:00 09/14/19 08:39:00 At: Procedure Fusion Lumbar Fusion Lumbar Fusion Lumbar Anterior(Lumbar) Anterior(Lumbar) Posterior(Lumbar) Pre-Induction Patient confirms Patient confirms Patient confirms Additional identity, site and identity, site and identity, site and Verification procedure, Anesthesia procedure, Anesthesia procedure, Anesthesia safety check complete, safety check complete, safety check complete, pulse ox on, Confirm pulse ox on, Confirm pulse ox on, Confirm patient allergies, patient allergies, patient allergies, Patient aspiration risk Patient aspiration risk Patient aspiration risk was assessed and was assessed and was assessed and equipment/assistance equipment/assistance equipment/assistance available if necessary, available if necessary, available if necessary, Blood loss assessment; Blood loss assessment; Blood loss assessment; if risk of >500 mL if risk of >500 mL if risk of >500 mL blood loss (7mL/kg in blood loss (7mL/kg in blood loss (7mL/kg in children) adequate IV children) adequate IV children) adequate IV access, fluids and/or access, fluids and/or access, fluids and/or blood products planned, blood products planned, blood products planned, Implants, devices, Implants, devices, Implants, devices, special equipment special equipment special equipment available and available and available and functioning functioning functioning Before Introduction of Introduction of Introduction of Incision/Suspend surgical team and/or surgical team and/or surgical team and/or all Activities new members, Entire new members, Entire new members, Entire (Before surgical team verbally surgical team verbally surgical team verbally Incision/Start of confirm patient, site, confirm patient, site, confirm patient, site, Procedure) procedure, Surgeon procedure, Surgeon procedure, Surgeon reviews: what are the reviews: what are the reviews: what are the critical or unexpected critical or unexpected critical or unexpected steps, operative steps, operative steps, operative duration, and duration, and duration, and anticipated blood anticipated blood anticipated blood loss?, Anesthesia loss?, Anesthesia loss?, Anesthesia reviews: are there any reviews: are there any reviews: are there any patient-specific patient-specific patient-specific concerns?, Nursing team concerns?, Nursing team concerns?, Nursing team reviews: has sterility reviews: has sterility reviews: has sterility been confirmed and are been confirmed and are been confirmed and are there any there any there any patient-specific patient-specific patient-specific concerns?, Antibiotic concerns?, Antibiotic concerns?, Antibiotic infused/ing and infused/ing and infused/ing and redosing discussed if redosing discussed if redosing discussed if applicable, Relevant applicable, Relevant applicable, Relevant images and results images and results images and results properly labeled and properly labeled and properly labeled and correctly displayed if correctly displayed if correctly displayed if applicable applicable applicable Fire Risk Yes Yes Yes Assessment Completed Last Modified By: Alexander LOMBARDI , Elyse Munoz RN , Elyse Munoz RN , Elyse Hough 09/14/19 07:29:57 09/18/19 07:43:40 09/18/19 07:44:27 General Comments: WITH DR. WICK CO NA OR Cautery Entry 1 Entry 2 Entry 3 Cautery and Settings Type Bipolar Monopolar Monopolar Unit ID Number [id number] Power Setting 40 Coagulation Setting 50 50 Cut Setting 30 30 Blend Setting Liter Flow Rate Grounding Pad Thigh right lateral Thigh left posterior Location Applied By Gilles LOMBARDI , George Munoz RN , Elyse Hough Last Modified By: Alexander LOMBARDI , Elyse Munoz RN , Elyse Munoz RN , Elyse Hough 09/14/19 07:30:23 09/14/19 07:31:02 09/14/19 09:06:08 CO NA OR Medication Entry 1 Entry 2 Entry 3 Times Med Administered Medication SURGIFOAM SZ 100 1974 CO THROMBIN SPRAY KIT CO TRANEXAMIC ACID 5000 UNITS 1 VIAL CYKLOKAPRON 1000MG 10ML POWDER TOPICAL SYRINGE AMPULE VIAL 84512-873-09 Medication Dosage 100 22080 UNITS 1 gm Route of TOPICAL TOPICAL topical Administration Meds Administered By Kristin Carrillo DO, DO, Donald J Rohl DO, Donald J Medication Comment Last Modified By: Alexander LOMBARDI , Elyse Munoz RN , Elyse Escalera RN 09/14/19 07:52:51 09/14/19 09:15:01 09/14/19 07:52:51 Entry 4 Entry 5 Times Med Administered Medication COS VANCOMYCIN 1 GM CO BUPIVICAINE MPF 0.5% POWDER VANCOCIN WITH EPINEPHRINE 10ML INJECTION Medication Dosage 1 GM 40 ML Route of TOPICAL local, 20 ml per side Administration Meds Administered By Kristin Carrillo DO, Kristyn Medication Comment Last Modified By: Elyse Munoz RN, RN, Veneva M 09/14/19 07:52:51 09/14/19 12:29:28 CO NA OR Irrigation Entry 1 Entry 2 Irrigant 0.9% Saline 0.9% Saline Irrigant Volume 2000 mL 3000 mL Medication and WITH BACITRACIN 50,000 Dosage Last Modified By: Elyse Munoz RN, RN, Veneva M 09/14/19 07:53:44 09/14/19 07:53:44 CO NA OR Implants Entry 1 Entry 2 Entry 3 Procedure Fusion Lumbar Fusion Lumbar Fusion Lumbar Anterior(Lumbar), Anterior(Lumbar), Anterior(Lumbar), Fusion Lumbar Fusion Lumbar Fusion Lumbar Posterior(Lumbar) Posterior(Lumbar) Posterior(Lumbar) Implant/Explant Implant Implant Implant Wasted Reason Provided by Surgeon Implant Identification Description BONE GRAFT SPINE INFUSE Arcadius XP L implant SCREW AESCULAP ARCADIUS MED [id number] Material XP 4.5X30MM LUMBAR PK Type1 Lumbar Type2 [id number] Director Of Conservation [employer] - Sofamor Aesculap - Implant Aesculap - Implant [employer] Catalog Number [id number] Lot Number [id number] NA Serial Number NA NA NA Implant Site LUMBAR LUMBAR LUMBAR Quantity 1 1 2 Expiration Date 04/15/21 11/24/23 No Expiration Date No No Yes Unique Device Indent (DEMIAN) Human Readable Machine Readable Manufactured Date Tissue Tissue Implanted Yes Yes No Material Used to per kit NA N/A Prepare/Process Tissue Processed By: Bright Ortiz Carla Last Modified By: Alexander LOMBARDI , Elyse Munoz RN , Elyse Escalera RN 09/18/19 07:47:50 09/18/19 07:47:51 09/18/19 07:47:51 Entry 4 Entry 5 Entry 6 Procedure Fusion Lumbar Fusion Lumbar Fusion Lumbar Anterior(Lumbar), Anterior(Lumbar), Posterior(Lumbar), Fusion Lumbar Fusion Lumbar Fusion Lumbar Posterior(Lumbar) Posterior(Lumbar) Anterior(Lumbar) Implant/Explant Implant Implant Implant Wasted Reason Provided by Surgeon Implant Identification Description SCREW AESCULAP ARCADIUS Magnifuse PL lumbar BONE GRAFT INFUSE LARGE XP 4.5X25MM LUMBAR 10cm Material BN Type1 [id number] Allo bone [id number] Director Of Conservation Aesculap - Implant [employer] SOFAMOR DANEK CytRxtronic - Sofamor Pixate [facility] Danek Catalog Number [id number] Lot Number REN coburn [id number] Serial Number REN [id number] NA Implant Site LUMBAR lumbar LUMBAR Quantity 2 1 1 Expiration Date 04/03/21 01/14/21 No Expiration Date Yes No No Unique Device Indent (DEMIAN) Human Readable Machine Readable Manufactured Date Tissue Tissue Implanted Yes Yes Yes Material Used to N/A pt blood PER KIT Prepare/Process Tissue Processed By: Bright Ortiz, Maite Castellano Last Modified By: Alexander LOMBARDI , Elyse Munoz RN , Elyse Muhammad RN , Lorena 09/18/19 07:47:51 09/18/19 07:47:51 N 09/18/19 14:11:47 Entry 7 Entry 8 Entry 9 Procedure Fusion Lumbar Fusion Lumbar Fusion Lumbar Posterior(Lumbar), Anterior(Lumbar), Posterior(Lumbar), Fusion Lumbar Fusion Lumbar Fusion Lumbar Anterior(Lumbar) Posterior(Lumbar) Anterior(Lumbar) Implant/Explant Implant Implant Implant Wasted Reason Provided by Surgeon Implant Identification Description SCREW SEASPINE MARINER Lordotic expandable SCREW SEASPINE MARNIER SOLID TI 7.5X50MM [id number] Material:PK SOLID TI 8.5X50MM LUMBAR 41-7550-1 Type1:T LUMBAR 41-8550-1 Director Of Conservation [employer] SPINE WAVE [employer] Catalog Number [id number] 41-8550-1 Lot Number NA [id number] NA Serial Number NA REN NA Implant Site LUMBAR LUMBAR LUMBAR Quantity 6 1 2 Expiration Date 05/09/23 No Expiration Date Yes No Yes Unique Device Indent (DEMIAN) Human Readable Machine Readable Manufactured Date Tissue Tissue Implanted Yes Yes Yes Material Used to NA NA NA Prepare/Process Tissue Processed By: Maite Jerez, Maite Castellano Last Modified By: Alexander LOMBARDI , Elyse Munoz RN , Elyse Munoz RN , Elyse Hough 09/18/19 07:47:50 09/18/19 07:47:50 09/18/19 07:48:50 Entry 10 Entry 11 Entry 12 Procedure Fusion Lumbar Fusion Lumbar Fusion Lumbar Posterior(Lumbar), Posterior(Lumbar), Posterior(Lumbar), Fusion Lumbar Fusion Lumbar Fusion Lumbar Anterior(Lumbar) Anterior(Lumbar) Anterior(Lumbar) Implant/Explant Implant Implant Implant Wasted Reason Provided by Surgeon Implant Identification Description SCREW SEASPINE MARINER SCREW SEASPINE SET SCREW ProlebrityTUCKER MARINER POLYAXIAL HEAD TI MARINER TI 41-1010 SOLID TI 8.5X45MM 41-3010 LUMBAR 41-8545-1 Director Of Conservation [employer] Catalog Number [id number] [id number] 41-8545-1 Lot Number NA na na Serial Number NA na na Implant Site LUMBAR lumbar LUMBAR Quantity 10 10 2 Expiration Date No Expiration Date Yes Yes Yes Unique Device Indent (DEMIAN) Human Readable Machine Readable Manufactured Date Tissue Tissue Implanted Yes No No Material Used to NA N/A N/A Prepare/Process Tissue Processed By: Maite Jerez Last Modified By: Alexander LOMBARDI , Elyse Munoz RN , Elyse Munoz RN , Elyse Hough 09/18/19 07:47:50 09/18/19 07:47:51 09/18/19 07:47:51 Entry 13 Entry 14 Procedure Fusion Lumbar Fusion Lumbar Posterior(Lumbar), Anterior(Lumbar) Fusion Lumbar Anterior(Lumbar) Implant/Explant Implant Implant Wasted Reason Provided by Surgeon Implant Identification Description CÉSAR MARINER TI Lordotic expandable [id number] 1025 [id number] Material:PK Type1:T 11-1550 Director Of Conservation [employer] SPINE WAVE Catalog Number 10-1025 11-1550 Lot Number na [id number] Serial Number na NA Implant Site LUMBAR LUMBAR SPINE Quantity 2 1 Expiration Date No Expiration Date Yes Yes Unique Device Indent (DEMIAN) Human Readable Machine Readable Manufactured Date Tissue Tissue Implanted No No Material Used to N/A N/A Prepare/Process Tissue Processed By: Last Modified By: Jb LOMBARDI , Lorena Munoz RN , Elyse Acevedo 09/18/19 14:11:47 09/18/19 07:47:51 CO NA OR Counts Entry 1 Entry 2 Entry 3 Instrument Count N/A N/A N/A Surgeon Notified of Yes Count Sponge Count Initial Count Done 1st count correct Initial Count Done X-ray Taken No No No Sharps/Miscellaneous Initial Count Done 1st count correct Initial Count Done Count RN Performing Count Elyse Munoz RN RN , Elyse Montero RN Count Performed with Maite Jerez Carla Wright, Anthony T. Comment Procedure Fusion Lumbar Fusion Lumbar Fusion Lumbar Anterior(Lumbar) Anterior(Lumbar) Posterior(Lumbar) Last Modified By: Alexander RN Elyse RN Elyse RN Elyse 09/14/19 07:31:43 09/14/19 08:35:19 09/14/19 08:35:19 Entry 4 Instrument Count N/A Surgeon Notified of Yes Count Sponge Count 1st count correct X-ray Taken No Sharps/Miscellaneous 1st count correct Count RN Performing Count George Campoverde RN Count Performed with Bright Ortiz Comment Procedure Fusion Lumbar Posterior(Lumbar) Last Modified By: Elyse Munoz RN 09/14/19 10:27:21 CO NA OR Dressing/Packing Entry 1 Entry 2 Dressing Dressing/Packing Type Dressing/Packing ABDOMEN BACK Site Tape Dressing/Packing Exofin; STRATASORB MASTISOL; STERI STRIPS; Comment 4X4'S; ABD'S; MEDIPORE TAPE Last Modified By: Elyse Munoz RN, RN, Veneva M 09/14/19 07:31:54 09/14/19 07:54:09 CO NA OR Temperature Regulation Entry 1 Entry 2 Device CO UNIT STERLING HUGGER CO UNIT STERLING HUGGER Unit ID [id number] Site LOWER BODY UPPER BODY Setting PER ANESTHESIA PER ANESTHESIA Warm blankets Warm blankets Last Modified By: Elyse Munoz RN, RN, Veneva M 09/14/19 07:54:49 09/14/19 08:35:52 CO NA OR Final Count Entry 1 Entry 2 Final Count Sponges Correct Yes Yes Sharps/Miscellaneous Yes Yes Correct Instruments Correct n/a n/a Count Performed with Bright Ortiz Anthony T. RN Performing Count Misael RN , Isabel Campoverde RN , George Surgeon Notified of Yes Yes Count X-ray Taken No No Comment WITH PA WITH PA Procedure Fusion Lumbar Fusion Lumbar Anterior(Lumbar), Posterior(Lumbar) Fusion Lumbar Posterior(Lumbar) Last Modified By: Elyse Munoz RN, RN, Veneva M 09/14/19 08:14:09 09/14/19 10:44:19 CO NA OR PNDS Risk of Impaired Skin Entry 1 Interventions/Activi Identifies physical OUTCOME STATEMENTS: The patient is free ties: alterations that may from visible signs and affect symptoms of injury procedure-specific related to positioning, positioning., Positions immobilization, the patient., pressure and/or Implements protective shearing forces. measures to prevent skin or tissue injury due to thermal, chemical, or mechanical sources., Uses supplies and equipment within safe parameters., Evaluates for signs and symptoms of injury as a result of positioning, immobilization, pressure and/or shearing forces. Last Modified By: Elyse Munoz RN 09/14/19 07:57:02 CO NA OR PNDS Risk of Altered Body Temp Entry 1 Interventions/Activi Monitors body OUTCOME STATEMENT: The patient is at or ties: temperature., returning to Implements normothermia at the thermoregulation conclusion of the measures., Evaluates operative period. response to thermoregulation. Last Modified By: Elyse Munoz RN 09/14/19 07:57:07 CO NA OR PNDS Risk of Infection Entry 1 INTERVENTIONS/ACTIVI Implements aseptic OUTCOME STATEMENT: The patient is free of TIES: technique., Classifies signs and symptoms of surgical wound., infection at the Assesses susceptibility conclusion of the for infection., operative period. Performs skin preparations., Protects from cross-contamination., Monitors for signs and symptoms of infection., Minimizes the length of invasive procedure planning care., Administers prescribed prophylactic treatments., Initiates traffic control., Administers care to invasive device sites., Administers care to wound sites. Last Modified By: Elyse Munoz RN 09/14/19 07:57:12 CO NA OR Patient Debriefing Entry 1 Patient Debriefing Verify name of Skin Assessment Unchanged from procedure(s) performed After Pre-Procedure including site/side, Sponge and needle counts are correct Abdomen Post Firm Procedure Last Modified By: Elyse Munoz RN 09/14/19 07:57:38 CO NA OR PNDS Risk of Injury Entry 1 Interventions/Activi Implements protective OUTCOME STATEMENT: The patient is free ties: measures to prevent from visible signs and injury due to symptoms of injury electrical sources., related to electrical, Implements protective mechanical, radiation measures to prevent or laser. injury due to mechanical sources, Implements latex allergy precautions as needed, Records devices implanted during invasive procedure., Performs required counts., Evaluates for signs and symptoms of laser, electrical, mechanical and radiation injury. Last Modified By: Elyse Munoz RN 09/14/19 07:57:17 CO NA OR Transport from OR Entry 1 Patient Status Sedated Post-op Destination PACU Phase I Via Bed Last Modified By: Elyse Munoz RN 09/14/19 07:33:03 Case Comments Finalized By: Lorena Muhamamd RN Document Signatures Signed By: Lorena Muhammad RN 09/15/19 11:42 Elyse Munoz RN 09/14/19 12:30 Elyse Munoz RN 09/14/19 12:26 Elyse Munoz RN 09/18/19 07:48 Lorena Muhammad RN 09/18/19 14:11 Normal [facility] Partial Thromboplastin Time (aPTT)on 09-18-2019 aPTT Coag (PPP) [Time] 37.1 Sec High 23.3-35.3 [facility] Comment on above: Result Comment: PAVEL PÉREZ NOTE: OF FEBRUARY 07, 2019,NEW NORMAL REFERENCE RANGE Performed By: #### 3 173-2 ####[address] Patient Summaryon 09-18-2019 Patient Summary PATIENT DISCHARGE INSTRUCTIONS If you are having an emergency and are not able to reach your physician, CALL 911 or go to the nearest emergency room and take this document with you. [facility]'s 09/18/19 11:53 [address] [place]. [address] PATIENT INFORMATION -------- Name: RUTH MACKEY Address: [address] [place] [id number] Age: 74 Years Phone: [phone] : 1945 12:00 MRN: [id number] Sex: Male Race: White Ethnicity: Not Hispan/Lat Admitted From: [facility], SE[facility] CLAIM Medical Service: Other Nurse Unit/Bed: (CO) 1EBS 4I51-11 Admit Date: 09/15/2019 21:34 PCP: Christina Maya MD PHYSICIANS INVOLVED WITH CARE Attending Physicians: None found Admitting Physician: None found Primary Care Physician:Christina Maya MD,[facility], - Consults: Christiana WOODSON , Jerry Stewart - CardVas Disease Kristin Carrillo DO - Orthopaedic Surg YOU WERE TREATED IN THE HOSPITAL FOR: Acute chest pain; Chronic kidney disease (CKD); Chronic pulmonary hypertension; Elevated troponin; Stented coronary artery FOLLOW-UP APPOINTMENTS: Provider: Specialty: Address: Date: Christina Maya MD [facility] [address] [address] (5) 5 to 7 days ALLERGIES: No Known Medication Allergies No Known Allergies MEASUREMENTS: Last Charted: Weight: 93.00 kg /205 lbs 0 oz ( 09/15/19 22:06:00 ) MEDICATIONS For: RUTH MACKEY This is your list of medication(s). Keep it with you at all times. Your doctor may have changed doses, add, held or stopped some of your medications. Please share this information with your family doctor. Carry this list of medications with you in case of an emergency. Update it when medications are stopped, doses are changed, or new medications (including [id number]-[id number] products) are added. Ask your doctor if you have any questions. THESE ARE THE MEDICATIONS YOU SHOULD BE TAKING acetaminophen (Tylenol Rapid Release Gelcap) 1,000 Milligram By Mouth as needed Pain/Discomfort. Acetaminophen-OxyCODONE (acetaminophen-oxyCODONE 325 mg-5 mg oral tablet) 1 Tab(s) By Mouth every 6 hours as needed Pain/Discomfort for 3 Days. Refills: 0. aspirin (aspirin 81 mg oral tablet) 1 Tab(s) By Mouth once a day. atorvastatin (atorvastatin 40 mg oral tablet) 1 Tab(s) By Mouth once a day. calcium carbonate (OsCal 500) 1 Tab(s) By Mouth Twice a day. cholecalciferol (Vitamin D3) 1000 iu By Mouth once a day. am. clopidogrel (Plavix 75 mg oral tablet) 1 Tab(s) By Mouth once a day. am. Freetext Medication Follow instructions on new written post op prescriptions -Percocet -Ciprofloxacin. GlipiZIDE (glipiZIDE 5 mg oral tablet) 1 Tab(s) By Mouth Twice a day. isosorbide mononitrate (isosorbide mononitrate 30 mg oral tablet, extended release) 1 Tab(s) By Mouth every morning. levothyroxine (levothyroxine 112 mcg (0.112 mg) oral tablet) 2 Tab(s) By Mouth once a day. after lunch. lisinopril (lisinopril 5 mg oral tablet) 1 Tab(s) By Mouth once a day. magnesium oxide 400 Milligram By Mouth Twice a day. metoprolol (Toprol XL 100 mg oral tablet, extended release) 1 Tab(s) By Mouth once a day. am., Beta-B' omega-3 polyunsaturated fatty acids ([place]-3 (Fish Oil) Capsule) 1,000 Milligram By Mouth once a day. tamsulosin (Flomax 0.4 mg oral capsule) 1 Capsule By Mouth once a day. after dinner. MEDICATION CHANGE DETAILS (Not your Final Home Medication List) During the course of your visit, your home medication list was updated with the most current information. The details of those changes are shown below: NEW MEDICATIONS Printed Prescriptions Acetaminophen-OxyCODONE (acetaminophen-oxyCODONE 325 mg-5 mg oral tablet) 1 Tab(s) By Mouth every 6 hours as needed Pain/Discomfort for 3 Days. Refills: 0. Comment UPDATED MEDICATIONS Other Medications Start: atorvastatin (atorvastatin 40 mg oral tablet) 1 Tab(s) By Mouth once a day. Comment Start: lisinopril (lisinopril 5 mg oral tablet) 1 Tab(s) By Mouth once a day. Comment UNCHANGED MEDICATIONS Other Medications acetaminophen (Tylenol Rapid Release Gelcap) 1,000 Milligram By Mouth as needed Pain/Discomfort. Comment aspirin (aspirin 81 mg oral tablet) 1 Tab(s) By Mouth once a day. Comment calcium carbonate (OsCal 500) 1 Tab(s) By Mouth Twice a day. Comment cholecalciferol (Vitamin D3) 1000 iu By Mouth once a day. am. Comment clopidogrel (Plavix 75 mg oral tablet) 1 Tab(s) By Mouth once a day. am. Comment Freetext Medication Follow instructions on new written post op prescriptions -Percocet -Ciprofloxacin. Comment GlipiZIDE (glipiZIDE 5 mg oral tablet) 1 Tab(s) By Mouth Twice a day. Comment isosorbide mononitrate (isosorbide mononitrate 30 mg oral tablet, extended release) 1 Tab(s) By Mouth every morning. Comment levothyroxine (levothyroxine 112 mcg (0.112 mg) oral tablet) 2 Tab(s) By Mouth once a day. after lunch. Comment magnesium oxide 400 Milligram By Mouth Twice a day. Comment metoprolol (Toprol XL 100 mg oral tablet, extended release) 1 Tab(s) By Mouth once a day. am., Beta-B' Comment omega-3 polyunsaturated fatty acids ([place]-3 (Fish Oil) Capsule) 1,000 Milligram By Mouth once a day. Comment tamsulosin (Flomax 0.4 mg oral capsule) 1 Capsule By Mouth once a day. after dinner. Comment STOP TAKING THESE MEDICATIONS None DO NOT TAKE UNTIL YOU TALK TO YOUR DOCTOR None NON-MEDICATION PRESCRIPTION SCHEDULING PHONE NUMBER: SELECTED LAB RESULTS Lab Result Order Date Sodium Level 135 mMol/L 09/18/2019 Potassium Level 3.8 mMol/L 09/18/2019 Creatinine 1.63 mg/dL 09/18/2019 BUN 26 mg/dL 09/18/2019 Total Bilirubin 2.1 mg/dL 09/16/2019 Hemoglobin A1c 7.1 % tl hgb 09/16/2019 Glucose Level 242 mg/dL 09/18/2019 LIPIDS TESTING LAB RESULTS Lab Result Order Date Lipid Profile - Cholesterol 65 mg/dL 09/16/2019 Lipid Profile - Triglyceride 68 mg/dL 09/16/2019 HDL Cholesterol 32 mg/dL 09/16/2019 LDL Cholesterol 19 mg/dL 09/16/2019 VLDL 14 mg/dL 09/16/2019 ADVANCE DIRECTIVE/HEALTH CARE DECISIONS: Advance Directive/Health Care Decisions Executed by Patient: Yes Advance Directive/Health Care Decisions Type: Living Will, Medical Power of [employer] Copy of Advance Directive/Health Care Decisions on Chart: Patient/Family asked to provide copy DISCHARGE INSTRUCTIONS: Discharge Activities As tolerated. Don't drink alcohol. Don't smoke. Smoking causes illnesses which shortens your life and makes it more difficult for your lungs to function. Your chances of stopping are greatly increased if you use medication or attend a program to help you. Discuss this with your doctor.. Notify Physician Any change in condition. Bleeding. Chest pain. Diarrhea. Difficulty urinating. For severe constipation, diarrhea or vomiting. If pain relief is ineffective. Numbness/tingling of affected extremity. Persistent nausea. Shortness of breath. If you develop a cold, sinus problems, flu-like symptoms, fever for any reason (temperature over 101F or 38C), problems urinating, (burning or stinging) or if you suspect an infection of any type, call your doctor immediately. Temperature greater than 101.5 F. Worsening or recurring symptoms. Pain Management Instructions Always take your medication as directed by your physician. If you feel it is not helping, call your physician. Discharge Medication Info Always take your medication as directed by your physician. If you feel it is not helping, call your physician. SUICIDE HOTLINE: Your mental and emotional well-being are important. If you are in a mental health crisis, or having thoughts of suicide, please call the nationwide suicide hotline, anytime day or night, at 2-281-879-AILM. Important information about accessing your health information through the [facility] patient portal If you initiated the self-registration process for [facility] during your stay, please check your personal email for an invitation to enroll in [facility] and complete the steps outlined in the email. If you would prefer to enroll while in the hospital, ask a member of your care team. We would be happy to assist you. If you have already enrolled in [facility], go to [email or web address] to login and access your health information. Thank you for choosing [facility]. PATIENT EDUCATION Interventional Procedure Discharge Instructions You have had a (procedure). Call this week for a follow-up appointment in CALL 911 ([address] NOT DRIVE) for emergency help if you have any of these symptoms: - Chest pain or angina lasting longer than 5 minutes. While waiting for help, if your doctor prescribed Nitroglycerin, take one. If the pain continues take another Nitroglycerin 5 minutes apart for a total of 3 pills or sprays. - Any signs of a stroke; slurred speech, problems talking or understanding speech, changes in vision, weakness, tingling, or numbness in an arm or leg. - Severe shortness of breath. - Fainting or passing out. - Bleeding from the site or sudden swelling, apply firm pressure on the site and call 911. - Temperature of 102F or greater. Observe your site for the next 3 days. Bruising is normal. Call your doctor at if you have questions or concerns or if you have any of these symptoms: - Yellow or green drainage (pus) or site becomes red. - A fever of 100.5F or greater or rash. - Tenderness, tingling or pain in your leg when walking. - An increase in pain or burning at the site. - Swelling, pain, or numbness in the leg/arm below the puncture site. - Change in color or temperature of leg/arm or foot/hand. - Inability to move the toes/fingers. Activity: - Rest in bed (in a reclined position) for the rest of today, except to eat and use the bathroom. - Another adult needs to stay with you until tomorrow morning - Apply pressure to the site when straining, coughing or sneezing for 48 to 72 hours. - Do not strain or lift anything heavier than 5 pounds for 48 to 72 hours. - Limit steps for 48 hours. - Do not drive for days. - You may shower after 24 hours. - Do not use a hot tub, take a tub bath, or swim for one week. - You may resume sexual activity in 48 to 72 hours. - You may return to work Site Care: Arterial/Venous Access site is: - Do not use lotion or powder near site for one week. - Remove dressing/Band-Aid when showering. Gently clean site with mild soap and water. Dry well and reapply a Band-Aid daily for 5 days or until site is healed. Change Band-Aid if site becomes soiled or wet. Closure Device: A closure device was used to seal your arterial access site. Read your pamphlet and carry the closure device patient information card with you. Diet: You may eat your normal foods unless your doctor ordered a change in your diet. You have received x-ray dye (contrast media) during your procedure today. Drink plenty of fluids (64 ounces/day X 2 to 3 days) to flush out the x-ray dye. Check with your doctor about fluids if you have a history of kidney or heart failure or have ever been on a fluid restriction. If clopidogrel (Plavix??), prasugrel (Effient??), or Aspirin have been prescribed for you do not stop taking without the advice of you delivery aide. Resume Metformin (Glucophage??) or any metformin containing medication in 48 hours. If you smoke, you must quit. Ask your doctor or nurse for information on quitting smoking. You can also call the [employer] Tobacco Quit Line or visit smokefree.gov. [facility] Cardiac Rehabilitation Program call: Cardiac Rehabilitation at [facility] [phone] Cardiac Rehabilitation at [facility] [phone] Cardiac Rehabilitation at [facility] [phone] You may also contact your local hospital for information. ____ Patient advised to enroll in a Cardiac Rehab Program If any of these instructions are different from what your doctor tells you, follow your doctor's orders. What You Should Know About Opioid Medicine What is an Opioid? Opioid medications are used to treat moderate to severe pain. Morphine, Oxycodone (Percocet??), Hydromorphone (Dilaudid??) and Hydrocodone ([place]??) are some types of opioids. How do Opioids work? Opioids reduce the pain signals sent to your brain, which decrease your feelings of pain. Opioids may reduce your pain, but may not take all the pain away. What are the risks from taking opioids? Prescription opioids carry serious risks of physical dependence, addiction and overdose, with fdc use. If you take too much of an opioid it can cause sudden . Other risks include but are not limited to: - Physical dependence means you have symptoms of withdrawal when a medication is stopped. - Addiction is a brain disease. Medications change the structure of the brain and how the brain works. These brain changes may be long lasting and can lead to harmful behaviors. - Overdose means you took too much medication. Opioid overdose can result in . Make sure you read all of the medication sheet you received with your prescription. Call [phone] right away if you have any of these signs of overdose: - Pale or bluish skin color - Trouble breathing - Severe confusion; not knowing where you are - Your heart is beating slower than normal - You see or hear things that are not real Tell the people you live with that you are taking a medicine that can stop your breathing. Ask them to watch for slow, shallow, or trouble breathing. Tell them to call 911 right away if you have trouble breathing or they cannot wake you up. What you need to know while taking Opioid medication: - Do Not take more medication, or higher doses than prescribed, as you may stop breathing or pass out. - Do not take opioids more often or in higher doses than prescribed. Call your doctor if your pain is not controlled. - Do Not drink alcohol (beer, wine or liquor) while taking this medication, as you may stop breathing or pass out. - Do Not take sleeping pills (like zolpidem (Ambien??) or temazepam (Restoril??)or anti-anxiety medication (like alprazolam (Xanax??), diazepam (Valium??), and lorazepam (Ativan ??) while taking this medication, as you may stop breathing or pass out. - Do Not crush or alter opioid medication or take it in ways not prescribed by your doctor. - Do Not drive or do tasks that require you to be alert after taking this medication. - If you are , talk to your doctor. Opioids may harm your or baby. What are the side effects from taking opioids? The most common side effects are: - Hard stools (Constipation) - Upset stomach, throwing up and dry mouth - Feeling sleepy - Feeling more pain - Confusion - Depression, low mood, feeling sad or nervous - Itching and sweating - Trouble passing urine Will I become addicted to opioid medication? Addiction is not common when this medication is used for a short time. But, when opioid medications are misused addiction is possible. Talk with your doctor about how to switch to using only non-opioid pain treatment. Please talk to your doctor about your concerns about addiction. How do I safely store and dispose of my opioids? Storage: - Keep your medications secure. - Keep your medications, including any medication patches,out of reach of others (this includes children, friends, family and pets). - Keep your opioids, and all medications, in the pill bottle from the pharmacy. Keep the lid closed. Disposal: - Safely throw out unused opioids: Contact your local pharmacy for how to throw out unused opioid medications or find your local medicine take-back site (http://disposemymeds.org /) - Follow these steps if you can't find a medicine take-back site to throw out , unused or unwanted medicines: Step #1: Mix medicine with used coffee grounds, dirt, or jason litter. Step #2: Put medicines in a sealed plastic bag. Step #3: Place plastic bag in the trash. Step #4: Take prescription bottle and scratch out personal information, then recycle or throw away. - Throw out patch medications by folding them in half with the sticky sides together,and then flushing them down a toilet. Do not place them in the household trash where children or pets can find them. It is against the law to share or sell your opioid medication. What else can I use to treat my pain? Non-opioid pain medications (such as Tylenol??, Motrin??, and Aleve??) may also help with your pain. If your doctor approves, these medications may be used with an opioid medication ordered for you. Non-opioid pain medications also have risks and side effects; please ask your doctor if these medications are safe for you. Many opioid medications also have acetaminophen (Tylenol??) in it. Very bad, and sometimes deadly, liver problems can happen with too much acetaminophen use. What are other ways to help ease your pain? - Heat or ice - Stretching - A pillow under the painful area - Massage - Talking to someone about how your thoughts and feelings affect your pain - Listening to music Talk to your doctor to make sure these actions are safe for you PATIENT DISCHARGE INSTRUCTION Signature Page for: RUTH MACKEY Date/Time: 09/18/2019 11:53:41 A Clinician has explained the information on my discharge instructions and has provided me with a copy. My questions have been answered to my satisfaction. Patient Signature Date/Time Responsible Party Date/Time Relationship to Patient __ Clinician Signature Date/Time ___ Normal [facility] Test Result Ejection Fractio non 09-18-2019 Test Result Ejection Fraction 65 Normal [facility] Basic Metabolic Panelon Anion gap [Moles/Vol] 10.0 mmol/L Normal 6.0-18.0 [facility] Comment on above: Performed By: #### 6 9405-9, 97565-2c1, 47919-7 ####[facility], [address] [place], [place]. Calcium [Mass/Vol] 8.3 mg/dL Low 8.9-10.3 [facility] Comment on above: Performed By: #### 6 9405-9, 52551-8y8, 34330-5 ####[facility], [address] [place], [place]. Chloride [Moles/Vol] 98 mmol/L Normal 98-107 [facility] Comment on above: Performed By: #### 6 9405-9, 18327-9v2, 04699-1 ####[facility], [address] [place], [place]. CO2 [Moles/Vol] 27 mmol/L Normal 22-32 [facility] Comment on above: Performed By: #### 6 9405-9, 84284-3s0, 06815-4 ####[facility], [address] [place], [place]. Creatinine [Mass/Vol] 1.70 mg/dL High 0.66-1.30 [facility] Comment on above: Performed By: #### 6 9405-9, 18580-2q2, 33585-4 ####[facility], [address] [place], [place]. Glucose [Mass/Vol] 226 mg/dL High 70-99 [facility] Comment on above: Result Comment: U pdated ADA Reference Range A normal fasting glucose concentration is less than 100 mg/dL. An impaired fasting glucose concentration is 100-125 mg/dL. A provisional diagnosis of diabetes mellitus can be made when a fasting glucose concentration is greater than 125 mg/dL. Performed By: #### 6 9405-9, 91259-6l0, 38439-6 ####[facility], [address] [place], [place]. Potassium [Moles/Vol] 4.0 mmol/L Normal 3.6-5.1 [facility] Comment on above: Performed By: #### 6 9405-9, 33168-2o4, 97628-9 ####[facility], [address] [place], [place]. Sodium [Moles/Vol] 135 mmol/L Low 136-145 [facility] Comment on above: Performed By: #### 6 9405-9, 63973-3x0, 47308-0 ####[facility], [address] [place], [place]. Urea nitrogen (BldV) [Mass/Vol] 30 mg/dL High 8-20 [facility] Comment on above: Performed By: #### 6 9405-9, 51455-0w7, 98187-3 ####[facility], [address] [place], [place]. GFRaaon 09-17-2019 GFR/1.73 sq M predicted among blacks MDRD (S/P/Bld) [Vol rate/Area] 48 mL/min/{1.73_m2} Normal [facility] Comment on above: Result Comment: The MDRD equation has not been validated for those over 70 years, women, patients with serious co-morbid conditions, or with extremes of body size, muscle mass of nutritional status. Performed By: #### 6 9405-9, 63022-0r0, 26259-2 ####[facility], [address] [place], [place]. GFRbbon 09-17-2019 GFR/1.73 sq M predicted among non-blacks MDRD (S/P/Bld) [Vol rate/Area] 40 mL/min/{1.73_m2} Normal [facility] Comment on above: Performed By: #### 6 9405-9, 28991-1y2, 43365-6 ####[facility], [address] [place], [place]. Glucose POCT (Uploaded)on Glucose [Mass/Vol] 191 mg/dL High 70-99 [facility] Comment on above: Result Comment: Chely tment ranges and critical values established by Patient Care Services. All follow-up actions were taken by Patient Care Services. Performed By: #### 2 430-8 ####[facility] Glucose [Mass/Vol] 293 mg/dL High 70-99 [facility] Comment on above: Result Comment: Chely tment ranges and critical values established by Patient Care Services. All follow-up actions were taken by Patient Care Services. Performed By: #### 2 430-8 ####[facility] Glucose [Mass/Vol] 208 mg/dL High 70-99 [facility] Comment on above: Result Comment: Chely tment ranges and critical values established by Patient Care Services. All follow-up actions were taken by Patient Care Services. Performed By: #### 2 430-8 ####[facility] Glucose [Mass/Vol] 200 mg/dL High 70-99 [facility] Comment on above: Result Comment: Chely tment ranges and critical values established by Patient Care Services. All follow-up actions were taken by Patient Care Services. Performed By: #### 2 430-8 ####[facility] Comprehensive Metabolic Pane mary 09-16-2019 Albumin [Mass/Vol] 3.0 g/dL Low 3.5-4.8 [facility] Comment on above: Performed By: #### 6 9405-9, 87224-6i9, 36214-6, 68534-3 ####[facility] CENTER, [address] [place], [place]. ALP [Catalytic activity/Vol] 46 Units/L Normal 32-91 [facility] Comment on above: Performed By: #### 6 9405-9, 60886-7v9, 57668-7, 99538-5 ####[facility], [address] [place]. ALT [Catalytic activity/Vol] 15 Units/L Normal 14-63 [facility] Comment on above: Performed By: #### 6 9405-9, 46333-2c2, 42758-3, 43383-9 ####[facility], [address] [place]. Anion gap [Moles/Vol] 10.0 mmol/L Normal 6.0-18.0 [facility] Comment on above: Performed By: #### 6 9405-9, 92719-2f6, 17741-7, 89394-1 ####[facility], [address] [place]. AST [Catalytic activity/Vol] 39 Units/L Normal 15-41 [facility] Comment on above: Performed By: #### 6 9405-9, 23105-8s1, 29008-9, 01076-9 ####[facility], [address] [place]. Bilirubin [Mass/Vol] 2.1 mg/dL High 0.3-1.2 [facility] Comment on above: Performed By: #### 6 9405-9, 78256-2m9, 88893-8, 21732-8 ####[facility], [address] [place]. Calcium [Mass/Vol] 8.4 mg/dL Low 8.9-10.3 [facility] Comment on above: Performed By: #### 6 9405-9, 67641-7g4, 59589-4, 74157-9 ####[facility], [address] [place]. Chloride [Moles/Vol] 99 mmol/L Normal 98-107 [facility] Comment on above: Performed By: #### 6 9405-9, 75740-9m4, 06445-5, 64008-7 ####[facility], [address], [place]. CO2 [Moles/Vol] 26 mmol/L Normal 22-32 [facility] Comment on above: Performed By: #### 6 9405-9, 50697-5l7, 04335-7, 79093-6 ####[facility], [address] [place]. Creatinine [Mass/Vol] 2.04 mg/dL High 0.66-1.30 [facility] Comment on above: Performed By: #### 6 9405-9, 26962-8t0, 72353-1, 01238-7 ####[facility], [address] [place]. Glucose [Mass/Vol] 214 mg/dL High 70-99 [facility] Comment on above: Result Comment: U pdated ADA Reference Range A normal fasting glucose concentration is less than 100 mg/dL. An impaired fasting glucose concentration is 100-125 mg/dL. A provisional diagnosis of diabetes mellitus can be made when a fasting glucose concentration is greater than 125 mg/dL. Performed By: #### 6 9405-9, 85590-6s5, 91402-3, 46275-5 ####[facility], [address], [place]. Potassium [Moles/Vol] 4.4 mmol/L Normal 3.6-5.1 [facility] Comment on above: Performed By: #### 6 9405-9, 67183-3t2, 85894-7, 39873-0 ####[facility], [address] [place] [address]. Protein [Mass/Vol] 5.7 g/dL Low 6.1-7.9 [facility] Comment on above: Performed By: #### 6 9405-9, 63837-6r8, 52099-5, 49645-4 ####[facility], [address] [place], [place]. Sodium [Moles/Vol] 135 mmol/L Low 136-145 [facility] Comment on above: Performed By: #### 6 9405-9, 42141-7t4, 49712-0, 86403-6 ####[facility], [address] [place] [address]. Urea nitrogen (BldV) [Mass/Vol] 32 mg/dL High 8-20 [facility] Comment on above: Performed By: #### 6 9405-9, 00826-7d9, 92352-8, 35700-8 ####[facility], [address] [place] [address]. GFRaaon 09-16-2019 GFR/1.73 sq M predicted among blacks MDRD (S/P/Bld) [Vol rate/Area] 39 mL/min/{1.73_m2} Normal [facility] Comment on above: Result Comment: The MDRD equation has not been validated for those over 70 years, women, patients with serious co-morbid conditions, or with extremes of body size, muscle mass of nutritional status. Performed By: #### 6 9405-9, 72383-9t5, 55512-8, 63806-6 ####[facility], [address] [place] [address]. GFRbbon 09-16-2019 GFR/1.73 sq M predicted among non-blacks MDRD (S/P/Bld) [Vol rate/Area] 32 mL/min/{1.73_m2} Normal [facility] Comment on above: Performed By: #### 6 9405-9, 73808-9n5, 34050-3, 05700-5 ####[facility], [address] [place] [address]. Glucose POCT (Uploaded)on Glucose [Mass/Vol] 251 mg/dL High [address] [place] [address] Comment on above: Result Comment: Chely tment ranges and critical values established by Patient Care Services. All follow-up actions were taken by [facility]. Performed By: #### 2 430-8 ####[facility] Glucose [Mass/Vol] 185 mg/dL High [address] Comment on above: Result Comment: Chely tment ranges and critical values established by [facility]. All follow-up actions were taken by [facility]. Performed By: #### 2 430-8 ####[facility] Glucose [Mass/Vol] 252 mg/dL High 7099 [facility] Comment on above: Result Comment: Chely tment ranges and critical values established by [facility]. All follow-up actions were taken by [facility]. Performed By: #### 2 430-8 ####[facility] Glucose [Mass/Vol] 207 mg/dL High 70-99 [facility] Comment on above: Result Comment: Chely tment ranges and critical values established by [facility]. All follow-up actions were taken by [facility]. Performed By: #### 2 430-8 ####[facility] Glycohemoglobin (HGB A1C) Asher wheat 09-16-2019 HbA1c (Bld) [Mass fraction] 7.1 % tl hgb High <5.6 [facility] Comment on above: Result Comment: U pdated ADA Reference Range HbA1c values of 5.7-6.4 percent indicate an increased risk for developing diabetes mellitus. HbA1c values greater than or equal to 6.5 percent are diagnostic of diabetes mellitus. For diagnosis of diabetes in individuals without unequivocal hyperglycemia, results should be confirmed by repeat testing. Performed By: #### 4 549-2 ####[facility] [address] [place] [address] Lipid Panelon 09-16-2019 Cholesterol [Mass/Vol] 65 mg/dL Normal <200 [facility] Comment on above: Result Comment: Refe r to the National Cholesterol Education Program ATP III cut offs for risk stratification. Performed By: #### 6 9405-9, 48134-2j7, 16198-4, 82932-1 ####[facility], [address] [place], [place]. Cholesterol in HDL [Mass/Vol] 32 mg/dL Low >40 [facility] Comment on above: Performed By: #### 6 9405-9, 36450-7i5, 44615-9, 16718-6 ####[facility], [address], [place]. Cholesterol in LDL [Mass/Vol] 19 mg/dL Normal <100 [facility] Comment on above: Performed By: #### 6 9405-9, 60683-8h2, 81634-6, 65465-6 ####[facility], [address]. Cholesterol in VLDL [Mass/Vol] 14 mg/dL Normal 2-38 [facility] Comment on above: Performed By: #### 6 9405-9, 94543-7w6, 22442-4, 37413-2 ####[facility], [address]. Triglyceride [Mass/Vol] 68 mg/dL Normal <200 [facility] Comment on above: Performed By: #### 6 9405-9, 86172-7v0, 16217-1, 12830-1 ####[facility], [address], [place]. Troponin Ion 09-16-2019 Troponin I.cardiac [Mass/Vol] 0.60 ng/mL Critically abnormal <0.06 [facility] Comment on above: Result Comment: Prev ious result critical and called. Call not required for this result. Performed By: #### 1 0839-9 ####[facility], [address] [place], [place]. Troponin I.cardiac [Mass/Vol] 0.68 ng/mL Critically abnormal <0.06 [facility] Comment on above: Result Comment: Crit ical value(s) on tests TROPI called to and read-back by [id number] , at location [facility] by [id number] time called 09/16/19 01:23 Performed By: #### 1 0839-9 ####[facility], [address]. Basic Metabolic Panelon 08-18 Calcium [Mass/Vol] 8.7 mg/dL Normal 8.5-10.6 [facility] Chloride [Moles/Vol] 98 mmol/L Normal 98-107 [facility] CO2 [Moles/Vol] 30 mmol/L Normal 21-32 [facility] Creatinine [Mass/Vol] 1.61 mg/dL High 0.70-1.30 [facility] Glucose [Mass/Vol] 233 mg/dL High 70-99 [facility] Potassium [Moles/Vol] 4.6 mmol/L Normal 3.5-5.1 [facility] Sodium [Moles/Vol] 135 mmol/L Low 136-145 [facility] Urea nitrogen (BldV) [Mass/Vol] 27 mg/dL High 7.0-18.0 [facility] Urea nitrogen/Creatinine [Mass ratio] 17 mg/mg Normal [facility] CBC with Differentialon 08-18 Basophils (Bld) [#/Vol] 0.0 thou/mcL Normal 0.0-0.2 [facility] Basophils/100 WBC (Bld) 0.3 % Normal 0-3 [facility] Differential cell count method Nom (Bld) AUTOMATED DIFFERENTIAL Normal [facility] Eosinophils (Bld) [#/Vol] 0.0 thou/mcL Normal 0.0-0.4 [facility] Eosinophils/100 WBC (Bld) 0.0 % Normal 0-7 [facility] Erythrocyte distribution width (RBC) [Entitic vol] 14.0 % Normal 11.7-15.0 [facility] Hematocrit (Bld) [Volume fraction] 32.0 % Low 34.0-50.0 [facility] Hemoglobin (Bld) [Mass/Vol] 11.0 g/dL Low 11.5-17.0 [facility] Lymphocytes (Bld) [#/Vol] 0.5 thou/mcL Low 0.7-4.5 [facility] Lymphocytes/100 WBC (Bld) 4.1 % Low 14-46 [facility] MCH (RBC) [Entitic mass] 33.7 Picograms Normal 27.0-34.0 [facility] MCHC (RBC) [Mass/Vol] 34.4 g/dL Normal 32.0-36.0 [facility] MCV (RBC) [Entitic vol] 97.8 fL Normal 80-98 [facility] Monocytes (Bld) [#/Vol] 1.0 thou/mcL Normal 0.1-1.0 [facility] Monocytes/100 WBC (Bld) 7.5 % Normal 4-13 [facility] Neutrophils (Bld) [#/Vol] 11.4 thou/mcL High 1.5-7.8 [facility] Neutrophils/100 WBC (Bld) 88.1 % High 40-74 [facility] Platelet mean volume (Bld) [Entitic vol] 8.4 fL Normal 7.5-11.2 [facility] Platelets (Bld) [#/Vol] 202 thou/mcL Normal 140-415 [facility] RBC (Bld) [#/Vol] 3.28 x(10)6/mcL Low 3.80-5.60 Mo unt [facility] WBC (Bld) [#/Vol] 13.0 thou/mcL High 4.0-10.5 Moun t [facility] PACU I Nursingon 09-15-2019 PACU I Nursing CO NA PACU I Nursing Record Summary Primary Physician: Kristin Carrillo DO Finalized Date/Time: 09/15/19 11:28:01 Pt. Name: RUTH MACKEY Ebenezer/Sex: 1945 Male Med Rec #: [id number] Physician: Kristin Carrillo DO Financial #: [id number] Pt. Type: I Room/Bed: Admit/Disch: 09/14/19 04:52:00 - Institution: [place] NA OR Main PACU I Case Times Entry 1 In PACU I 09/14/19 12:18:00 Ready for PACU I 09/14/19 14:58:00 Discharge Discharge from PACU 09/14/19 14:58:00 PACU I Discharge NA I Delay Reason Last Modified By: Kim Kennedy RN 09/14/19 15:06:56 CO NA OR Main PACU I Case Attendees Entry 1 Case Attendee Kim Kennedy RN Role Performed RN Last Modified By: Kim Kennedy RN 09/14/19 15:07:01 Finalized By: Lorena Muhammad RN Document Signatures Signed By: Lorena Muhammad RN 09/15/19 11:28 Normal [facility] Test Result Ejection Fractio non 09-15-2019 Test Result Ejection Fraction 55-60 Normal [facility] Troponin Ion 09-15-2019 Troponin I.cardiac [Mass/Vol] 0.94 ng/mL Critically high <0.06 [facility] Comment on above: Result Comment: RESU LTS VERIFIED AND CALLED TO/READ BACK BY ANTONIO GARZON @[facility]. Troponin I.cardiac [Mass/Vol] 1.10 ng/mL Critically high <0.06 [facility] Comment on above: Result Comment: RESU LTS VERIFIED AND CALLED TO/READ BACK BY DIA BHAKTA 09.15.19 @ 0916 BF Troponin I.cardiac [Mass/Vol] 1.17 ng/mL Critically high <0.06 [facility] Comment on above: Result Comment: RESU LTS VERIFIED AND CALLED TO/READ BACK BY ADBIRIZAK MONCADA 09.15.2019 @0344 JTW Basic Metabolic Panelon 08-18 Calcium [Mass/Vol] 10.1 mg/dL Normal 8.5-10.6 [facility] Chloride [Moles/Vol] 100 mmol/L Normal 98-107 Moun t [facility] CO2 [Moles/Vol] 29 mmol/L Normal 21-32 [facility] Creatinine [Mass/Vol] 1.59 mg/dL High 0.70-1.30 [facility] Glucose [Mass/Vol] 193 mg/dL High 70-99 [facility] Potassium [Moles/Vol] 4.1 mmol/L Normal 3.5-5.1 Mery nt [facility] Sodium [Moles/Vol] 137 mmol/L Normal 136-145 [facility] Urea nitrogen (BldV) [Mass/Vol] 23 mg/dL High 7.0-18.0 [facility] Urea nitrogen/Creatinine [Mass ratio] 14 mg/mg Normal [facility] PreOp Nursingon 2019 PreOp Nursing [place] NA PreOp Nursing Record Summary Primary Physician: Kristin Carrillo DO Finalized Date/Time: 09/14/19 07:40:29 Pt. Name: RUTH MACKEY/Sex: 1945 Male Med Rec #: [id number] Physician: Kristin Carrillo DO Financial #: [id number] Pt. Type: I Room/Bed: / Admit/Disch: 09/14/19 04:52:00 - Institution: [place] NA OR PreOp Case Times Entry 1 PreOp Case Times In Room Time 09/14/19 05:22:00 Out Room Time 09/14/19 06:46:00 Last Modified By: Elyse Munoz RN 09/14/19 06:47:17 CO NA OR PreOp Case Attendees Entry 1 Case Attendee Salma Campoverde RN Role Performed RN Last Modified By: Graciela Reyes 09/14/19 05:33:14 Finalized By: Elyse Munoz RN Document Signatures Signed By: Elyse Munoz RN 09/14/19 06:47 Elyse Munoz RN 09/14/19 07:40 Normal [facility] Troponin Ion 2019 Troponin I.cardiac [Mass/Vol] 0.77 ng/mL Critically high <0.06 [facility] Comment on above: Result Comment: RESU LTS VERIFIED AND CALLED TO/READ BACK BY CHARLEY GARCÍA 1.30.20 @ 1918.BA Troponin I.cardiac [Mass/Vol] 0.09 ng/mL High <0.06 [facility] Type and Screenon 2019 Blood group antibody screen Ql Negative Normal NEG [facility] Rh Nom (Bld) Negative Normal [facility] MRI Spine Lumbar w/o Contras ton 05-16-2019 MRI Spine Lumbar w/o Contrast Exam Date/Time: 05/16/2019 16:07 EDT Reason for Exam: LUMBAR DDD WITH RADICULOPATHY HEART STENT 2018 Report STUDY: MRI Spine Lumbar w/o Contrast; 05/16/2019 4:07 pm INDICATION: LUMBAR DDD WITH RADICULOPATHY HEART STENT 2018. COMPARISON: None. ACCESSION NUMBER(S): [id number] ORDERING CLINICIAN: Kendall Mcgowan TECHNIQUE: Sagittal T1, T2, STIR, axial T1 and T2 weighted images of the lumbar spine were acquired. FINDINGS: There is minimal to moderate levoconvex scoliosis with apex at approximately L2-3. There is diffuse narrowing throughout the lumbar region in part on the basis of congenital pedicular stenosis and superimposed prominence of epidural fat. There is minimal anterior wedging of the T12 vertebral body without evidence of edema on STIR images. Minimal patchy T1 and T2 hyperintensity throughout the lumbar region probably due to focal fat. Discogenic degenerative changes are noted at L3-4 with sclerosis along the endplates the right of midline. At L5-S1 discogenic degenerative changes are also noted. There is disc desiccation throughout the lumbar region worst at L3-4 and L5-S1 where there is loss of intervertebral disc space height. No other significant abnormality of height alignment or signal of the lumbar vertebral bodies. Conus medullaris terminates appropriately at the T12-L1 level. At T12-L1, there is a moderate central and paracentral disc herniation which indents the ventral thecal sac. The neural foramina are not significantly narrowed. At L1-2, no significant spinal canal or neural foraminal stenosis. At L2-3, there is a small left subarticular herniation with annular fissure superimposed upon disc bulge which minimally indents the ventral thecal sac and minimally narrows the neural foramina. At L3-4, prominent posterior endplate osteophytes and disc bulge with superimposed left foraminal herniation combines with hypertrophic facet changes and ligamentum flavum hypertrophy to moderately to severely narrow the spinal canal measuring approximately 3 mm in the anterior- posterior dimension with partial effacement of the CSF at this level and redundancy of nerve roots of the cauda equina superiorly. There is likely compression of at least the traversing left L4 nerve root. Neural foramina are moderately to severely narrowed on the right side and moderately narrowed on the left side due to degenerative disc disease and hypertrophic facet changes. At L4-5, central left paracentral and subarticular as well as foraminal herniation superimposed upon disc bulge effaces the left sub articular zone in combination with hypertrophic facet changes and ligamentum flavum hypertrophy likely with compression of the traversing L5 nerve Exam Date/Time: 05/16/2019 16:07 EDT Report root. There is moderate neural foraminal stenosis due to disc bulge and hypertrophic facet changes, slightly greater on the left side with potential impingement of the exiting left L4 nerve root. At L5-S1, there is prominence of posterior endplate osteophytes which combine with hypertrophic facet changes to moderately narrow the left greater than right neural foramina. No significant spinal canal stenosis. IMPRESSION: Diffuse spinal canal stenosis in the lumbar region worst caudal to L2-3 due to degenerative disc disease and hypertrophic facet changes as well as congenital pedicular stenosis and epidural lipomatosis with degenerative changes worst at L3-4 where there is near effacement of the subarachnoid space with apparent redundancy of nerve roots of the cauda equina is superior to this level and compression of the traversing nerve roots more on the right including the traversing L4 nerve roots. Please correlate clinically. FINAL REPORT Dictated: 05/16/2019 6:13 pm Lincoln Reynolds MD Signed (Electronic Signature): 05/16/2019 6:13 pm Signed by: Lincoln Reynolds MD Technologist: ASA Normal [facility] BUNon 03-10-2019 Urea nitrogen [Mass/Vol] 22 mg/dL Normal 6-23 [facility] Comment on above: Performed By: #### 2 [id number] #### [facility] [address] [place] [address] Calciumon 03-10-2019 Calcium [Mass/Vol] 8.8 mg/dL Normal 8.6-10.3 [facility] Comment on above: Performed By: #### 2 025228 #### [facility] [address] [place] [address] Creatinineon 03-10-2019 Creatinine [Mass/Vol] 1.7 mg/dL High 0.5-1.3 [facility] Comment on above: Performed By: #### 2 [id number] #### [facility] [address] [place] [address] Hct & Hgbon 03-10-2019 Hematocrit (Bld) [Volume fraction] 41.2 % Low 42.0-52.0 [facility] Comment on above: Performed By: #### 2 542300 #### [facility] [address] [place] [address] Hemoglobin (Bld) [Mass/Vol] 14.0 g/dL Normal 13.5-18.0 [facility] Comment on above: Performed By: #### 2 583251 #### [facility] [address] [place] [address] Lyteson 03-10-2019 Anion gap [Moles/Vol] 12 mmol/L Normal 10-20 [facility] Comment on above: Performed By: #### 2 718067 #### [facility] [address] [place] [address] Chloride [Moles/Vol] 103 mmol/L Normal 98-107 [facility] Comment on above: Performed By: #### 2 145385 #### [facility] [address] [place] [address] CO2 [Moles/Vol] 27.0 mmol/L Normal 21.0-32.0 [facility] Comment on above: Performed By: #### 2 135509 #### [facility] [address] [place] [address] Potassium [Moles/Vol] 4.1 mmol/L Normal 3.5-5.3 [facility] Comment on above: Performed By: #### 2 954214 #### [facility] [address] [place] [address] Sodium [Moles/Vol] 138 mmol/L Normal 136-145 [facility] Comment on above: Performed By: #### 2 385366 #### [facility] [address] [place] [address] Phosphoruson 03-10-2019 Phosphate [Mass/Vol] 3.2 mg/dL Normal 2.5-4.9 [facility] Comment on above: Performed By: #### 2 342289 #### [facility] [address] [place] [address] Uric Acidon 03-10-2019 Urate [Mass/Vol] 7.4 mg/dL Normal 4.0-7.5 [facility] Comment on above: Performed By: #### 2 298118 #### [facility] [address] [place] [address] eGFRon 03-10-2019 GFR/1.73 sq M predicted among non-blacks MDRD (S/P/Bld) [Vol rate/Area] 50 mL/min/1.73 m2 [facility] Comment on above: Order Comment: Order added by Discern Expert. Performed By: #### 2 620843 #### [facility] [address] [place] [address] GFR/1.73 sq M predicted among non-blacks MDRD (S/P/Bld) [Vol rate/Area] 41 mL/min/1.73 m2 [facility] Comment on above: Order Comment: Order added by Discern Expert. Performed By: #### 2 [id number] #### [facility] [address] [place] [address] Glucose POCon 03-03-2019 Glucose [Mass/Vol] 198 mg/dL High 70-99 [facility] Comment on above: Performed By: #### 2 458457 #### [facility] [address] [place] [address] Glucose POCon 11-18-2018 Glucose [Mass/Vol] 230 mg/dL High 70-99 [facility] Comment on above: Performed By: #### 5 [id number] #### [facility] POC Subsection [address] [place] [address] XR Spine Lumbar w/ Obliqueso n 11-08-2018 XR Spine Lumbar w/ Obliques Exam Date/Time: 11/07/2018 16:37 EDT Reason for Exam: lumbar DD Report STUDY: XR Spine Lumbar w/ Obliques; 11/07/2018 4:37 pm INDICATION: lumbar DD. COMPARISON: 11/05/2017 ACCESSION NUMBER(S): [id number] ORDERING CLINICIAN: Kendall Mcgowan FINDINGS: Five views of the lumbar spine including AP, lateral, lateral cone-down and bilateral oblique views were obtained. There is no acute fracture identified. The vertebral bodies are well aligned without evidence of subluxation. Moderate to severe disc space narrowing and small marginal osteophytes are present at the L3-4 and L5-S1 levels. Minimal discogenic degenerative changes are seen elsewhere in the lumbar spine. Moderate facet degenerative changes are seen in the mid to lower lumbar spine. There is no evidence of pars interarticularis defect. IMPRESSION: 1. No evidence of acute fracture. 2. Degenerative changes throughout the lumbar spine, as described above. FINAL REPORT Dictated: 11/08/2018 10:19 am Paul Saeed MD Signed (Electronic Signature): 11/08/2018 10:19 am Signed by: Paul Saeed MD Technologist: [facility] Normal [facility] BUNon 09-16-2018 Urea nitrogen [Mass/Vol] 24 mg/dL High 6-23 [facility] Comment on above: Performed By: #### 2 [id number] #### [facility] [address] [place] [id number] Calciumon 09-16-2018 Calcium [Mass/Vol] 9.9 mg/dL Normal 8.6-10.3 [facility] Comment on above: Performed By: #### 2 854945 #### [facility] [address] [place] [address] Creatinineon 09-16-2018 Creatinine [Mass/Vol] 1.6 mg/dL High 0.5-1.3 [facility] Comment on above: Performed By: #### 2 526453 #### [facility] [address] [place] [id number] Hct & Hgbon 09-16-2018 Hematocrit (Bld) [Volume fraction] 42.9 % Normal 42.0-52.0 [facility] Comment on above: Performed By: #### 1 [id number] #### [facility] [address] [place] [address] Hemoglobin (Bld) [Mass/Vol] 14.4 g/dL Normal 13.5-18.0 [facility] Comment on above: Performed By: #### 1 [id number] #### [facility] [address] [place] [address] Lyteson 09-16-2018 Anion gap [Moles/Vol] 10 mmol/L Normal 10-20 [facility] Comment on above: Performed By: #### 2 290291 #### [facility] [address] [place] [address] Chloride [Moles/Vol] 104 mmol/L Normal 98-107 [facility] Comment on above: Performed By: #### 2 796163 #### [facility] [address] [place] [address] CO2 [Moles/Vol] 30.0 mmol/L Normal 21.0-32.0 [facility] Comment on above: Performed By: #### 2 421310 #### [facility] [address] [place] [address] Potassium [Moles/Vol] 3.9 mmol/L Normal 3.5-5.3 [facility] Comment on above: Performed By: #### 2 901094 #### [facility] [address] [place] [address] Sodium [Moles/Vol] 140 mmol/L Normal 136-145 [facility] Comment on above: Performed By: #### 2 935973 #### [facility] [address] [place] [address] Phosphoruson 09-16-2018 Phosphate [Mass/Vol] 3.1 mg/dL Normal 2.5-4.9 [facility] Comment on above: Performed By: #### 2 195841 #### [facility] [address] [place] [address] Uric Acidon 09-16-2018 Urate [Mass/Vol] 7.7 mg/dL High 4.0-7.5 [facility] Comment on above: Performed By: #### [id number] #### [facility] [employer] [address] [place] [address] eGFRon 09-16-2018 GFR/1.73 sq M predicted among non-blacks MDRD (S/P/Bld) [Vol rate/Area] 51 mL/min/1.73 m2 [facility] Comment on above: Order Comment: Order added by Discern Expert. Performed By: #### 1 [id number] #### [facility] [employer] [address] [place] [address] GFR/1.73 sq M predicted among non-blacks MDRD (S/P/Bld) [Vol rate/Area] 42 mL/min/1.73 m2 [facility] Comment on above: Order Comment: Order added by Discern Expert. Performed By: #### 1 [id number] #### [facility] [employer] [address] [place] [address] Basic Metabolic Panelon 01-14 Anion gap 18 mmol/L Invalid Interpretation Code 10 - 20 mmol/L [facility] Bicarbonate (HCO3) 23 mmol/L Invalid Interpretation Code 21 - 32 mmol/L [facility] BUN/Creatinine Ratio 11.2 mg/mg Invalid Interpretation Code 10.0 - 20.0 [facility] Calcium 9.1 mg/dL Invalid Interpretation Code 8.4 - 10.2 mg/dL [facility] Chloride 104 mmol/L Invalid Interpretation Code 98 - 108 mmol/L [facility] Creatinine 1.43 mg/dL High 0.8 - 1.3 mg/dL [facility] eGFR (non-black) The eGFR should be u sed for monitoring renal function only and not for medication dosing. Invalid Interpretation Code [facility] eGFR (non-black) 49 mL/min/{1.73_m2} Low >=60 [facility] Glucose mass conc 105 mg/dL High 65 - 99 mg/dL [facility] Potassium molar conc 3.9 mmol/L Invalid Interpretation Code 3.5 - 5.1 mmol/L [facility] Sodium 141 mmol/L Invalid Interpretation Code 135 - 145 mmol/L [facility] Urea nitrogen 16 mg/dL Invalid Interpretation Code 8 - 25 mg/dL [facility] CBCon 02-01-2018 Erythrocyte distribution width Auto Entitic volume (RBC) 12.8 % Invalid Interpretation Code 11.6 - 14.8 % [facility] Erythrocytes (RBC) 3.52 M/mcL Low 4.50 - 5.90 [facility] AB Hematocrit (HCT) 33.9 % Low 41 - 53 % [facility] Hemoglobin mass conc (Bld) 11.8 g/dL Low 13.5 - 17.5 g/dL [facility] Interpretation and review of laboratory results Abnormal Invalid Interpretation Code [facility] MCH 33.5 pg Invalid Interpretation Code 26 - 34 pg [facility] MCHC mass conc (RBC) 34.8 g/dL Invalid Interpretation Code 31 - 37 g/dL [facility] MCV 96.3 fL Invalid Interpretation Code 80 - 100 fL [facility] Nucleated erythrocytes 0.00 K/mcL Invalid Interpretation Code 0.00 - 0.00 [facility] Nucleated erythrocytes/100 erythrocytes 0.0 % Invalid Interpretation Code [facility] Platelet mean volume (PMV) 10.2 fL Invalid Interpretation Code 9 - 15.5 fL [facility] Platelets 177 K/mcL Invalid Interpretation Code 150 - 400 [facility] WBC (Leukocytes) 6.51 K/mcL Invalid Interpretation Code 4.50 - 11.00 [facility] Lipid Panelon 02-01-2018 Cholesterol 77 mg/dL Low 100 - 199 mg/dL [facility] Comment on above: National Cholesterol Education Program Guidelines: Cholesterol Desirable: <200 mg/dL Borderline High: 200-239 mg/dL High: greater than or equal to 240 mg/dL Cholesterol non HDL mass conc 44 mg/dL Invalid Interpretation Code [facility] Comment on above: National Cholesterol Education Program Guidelines: NON HDL Cholesterol Desirable: <130 mg/dL Borderline High: 130-159 mg/dL High: 160-189 mg/dL Very High: > or = 190 mg/dL Cholesterol to HDL Ratio 2.3 {ratio} Invalid Interpretation Code [facility] Comment on above: Males Cholesterol/HD L Ratio: Average risk: 5.0 1/2 average risk: 3.4 2 x average risk: 9.6 HDL Cholesterol 33 mg/dL Low 40 - 59 [facility] Comment on above: National Cholesterol Education Program Guidelines: HDL Cholesterol Low: <40 mg/dL Near Optimal: 40-59 mg/dL High: greater than or equal to 60 mg/dL LDL Cholesterol 20 mg/dL Invalid Interpretation Code 10 - 130 mg/dL [facility] Comment on above: National Cholesterol Education Program Guidelines: LDL Cholesterol Optimal: <100 mg/dL Near Optimal/above Optimal: 100-129 mg/dL Borderline High: 130-159 mg/dL High: 160-189 mg/dL Very High: greater than or equal to 190 mg/dL Reference range change on 08/30/17 to reflect NCEP guidelines. Triglyceride 121 mg/dL Invalid Interpretation Code 30 - 150 mg/dL [facility] Comment on above: National Cholesterol Education Program Guidelines: Triglyceride Normal: <150 mg/dL Borderline High: 150-199 mg/dL High: 200-499 mg/dL Very High: greater than or equal to 500 mg/dL POC Glucoseon 02-01-2018 Glucose mass conc 161 mg/dL High 65 - 99 mg/dL [facility] Interpretation and review of laboratory results Abnormal Invalid Interpretation Code [facility] CBCon 01-31-2018 Erythrocyte distribution width Auto Entitic volume (RBC) 12.9 % Invalid Interpretation Code 11.6 - 14.8 % [facility] Erythrocytes (RBC) 3.50 M/mcL Low 4.50 - 5.90 [facility] L AB Hematocrit (HCT) 34.1 % Low 41 - 53 % [facility] Hemoglobin mass conc (Bld) 11.9 g/dL Low 13.5 - 17.5 g/dL [facility] Interpretation and review of laboratory results Abnormal Invalid Interpretation Code [facility] MCH 34.0 pg Invalid Interpretation Code 26 - 34 pg [facility] MCHC mass conc (RBC) 34.9 g/dL Invalid Interpretation Code 31 - 37 g/dL [facility] MCV 97.4 fL Invalid Interpretation Code 80 - 100 fL [facility] Nucleated erythrocytes 0.00 K/mcL Invalid Interpretation Code 0.00 - 0.00 [facility] Nucleated erythrocytes/100 erythrocytes 0.0 % Invalid Interpretation Code [facility] Platelet mean volume (PMV) 10.2 fL Invalid Interpretation Code 9 - 15.5 fL [facility] Platelets 185 K/mcL Invalid Interpretation Code 150 - 400 [facility] WBC (Leukocytes) 5.95 K/mcL Invalid Interpretation Code 4.50 - 11.00 [facility] CBC Within 2-4 hours following procedure Invalid Interpretation Code [facility] Cardiac Catheterizationon Cardiac Catheterization Interface, Rad In Heartlab Xper Echopacs - 01/31/2018 10:13 AM EDT Patient Name: RUTH MACKEY Date of : 1945 Procedure Date: 01/31/2018 Cath #: [id number] Physician(s): Eric Rios MD Ref. Physician: Dr France Saez PROCEDURE(S) PERFORMED: Heart Cath: Left with Coronary Angio & LV gram Intervention: Drug Eluting Stent RCA Proximal Ultrasound Intracoronary of RCA Clinical History: Never smoked Prior PCI: Yes > 5 years ago Family History of Premature CAD: Yes Dyslipidemia: Yes Hypertension: Yes Diabetes Mellitus: Yes dysonea on exertion chest tightness/pain exertional angina Pre-OP Diagnosis/Indication: ACC Indications: New Onset Angina <= 2 months ACC Indications: Worsening Angina No pre cath Stress Test New onset Angina ASA Classification: II ASA status unchanged immediately prior to sedation administration. Heart, lungs, and airway assessed prior to sedation. Following informed consent, the patient was brought to the procedure room in the fasting state. was prepped and draped in a sterile fashion. Local anesthesia was attained with 2% Lidocaine SQ, total injected 1 mls to the Right radial region. Using standard technique, sheath(s) were placed in the following site(s): right radial artery - 6F 10CM .021 GLIDESHEATH Slender SS Catheters were advanced using standard guide wire technique. Multiple angiographic pictures were taken and appropriate pressures obtained. Hemodynamics: Time AIR REST LV 148/11, 22 09:24:01 LV 144/11, 20 09:24:17 LVp 147/9, 20 09:24:28 AOp 142/74 (104) 09:24:35 AO 144/76 (106) SA 09:25:06 After review of the angiography and assurance of the patient's stability, the catheter was withdrawn from the sheath and CORONARY_ANGIO/FINDINGS Tubular 40% mid lesion in left main Diffuse Luminal Irregularities 25% proximal lesion in LAD Discrete Thrombus 100% mid lesion in circumflex Collateral flow from circumflex to circumflex Tubular Calcified 85% ostial lesion in RCA Diffuse Luminal Irregularities 20% proximal lesion in RCA Tubular 85 % ostial lesion in RCA , Drug Eluting Stent to 0 % Pre BRITTNEE flow: 3 ,Post BRITTNEE flow: 3 Lesion complexity: High/C Comment: IVUS of RCA demonstrated a very large vessel with 85% ostial stenosis. Collateral(s): Collateral flow from circumflex to circumflex ANNOTATION: IVUS Ventricular Function: LV Gram- 50% EF with normal wall motion Valve Function: Valve functions within normal limits. Dominance: < Right Dominant INTERVENTIONAL RESULTS: Interventional Indication: New onset Angina (<= 2 months) Syntax Score: Low Drug Eluting Stent RCA Proximal ANNOTATION: IVUS Comment: IVUS of RCA demonstrated a very large vessel with 85% ostial stenosis. POST-OP DIAGNOSIS: Coronary Artery Disease : causing symptoms CARDIAC RECOMMENDATIONS: Medical therapy , minimal 1 year of uninterrupted dual antiplatelet therapy Risk factor modification Cardiac Rehab consult COMMENTS: IVUS of RCA demonstrated a very large vessel with 85% ostial stenosis. No Complications ____ Intraprocedure Medications: Versed 2 mg IV given for anxiety and general discomfort per verbal order - Eric Rios M.D. Heparin dose doublechecked by Dr. Rios 4000 units IVP per verbal order - Eric Rios M.D. Fentanyl 50 mcg IV given for anxiety and general discomfort per verbal order - Eric Rios M.D. Heparin dose doublechecked by Dr. Rios 2500 units IVP per verbal order - Eric Rios M.D. Plavix 600 mg PO per verbal order - Eric Rios M.D. Equipment: Sheath(s) Onovative 6F 10CM .021 GLIDESHEATH Slender SS Wire(s) [employer] J WIRE .[id number] [employer] Balance wire .014 x 190cm Catheter(s) Onovative RADIAL TIG 4.0 DIAG CATH 5F Guide(s) [employer] 6F JR4 GUIDE Balloon(s) [employer] 3.0 X 12 TREK .014 RX BALLOON [employer] [facility]ASC[employer] 5.0 X 12 NC TREK .014 RX BALLOON Stent(s) [address] 5.00 X 12 RESOLUTE ADIEL RX STENT Other [employer] [place] [employer] [place] [employer] .014 X 150CM ULTRASOUND CATH VASCULAR SOLUTIONS Vasc Band - Regular 24cm See Nursing Notes for further details Signed By Eric Rios MD On 01/31/2018 10:13:07 AM Eric Rios MD ____ Invalid Interpretation Code [facility] Cardiac Catheterization Patient Name: RUTH MACKEY Date of : 1945 Procedure Date: 01/31/2018 Cath #: [id number] Physician(s): Eric Rios MD Ref. Physician: Dr France Saez PROCEDURE(S) PERFORMED: Heart Cath: Left with Coronary Angio & LV gram Intervention: Drug Eluting Stent RCA Proximal Ultrasound Intracoronary of RCA Clinical History: Never smoked Prior PCI: Yes > 5 years ago Family History of Premature CAD: Yes Dyslipidemia: Yes Hypertension: Yes Diabetes Mellitus: Yes dysonea on exertion chest tightness/pain exertional angina Pre-OP Diagnosis/Indication: ACC Indications: New Onset Angina <= 2 months ACC Indications: Worsening Angina No pre cath Stress Test New onset Angina ASA Classification: II ASA status unchanged immediately prior to sedation administration. Heart, lungs, and airway assessed prior to sedation. Following informed consent, the patient was brought to the procedure room in the fasting state. was prepped and draped in a sterile fashion. Local anesthesia was attained with 2% Lidocaine SQ, total injected 1 mls to the Right radial region. Using standard technique, sheath(s) were placed in the following site(s): right radial artery - 6F 10CM .021 GLIDESHEATH Slender SS Catheters were advanced using standard guide wire technique. Multiple angiographic pictures were taken and appropriate pressures obtained. Hemodynamics: Time AIR REST LV 148/11, 22 09:24:01 LV 144/11, 20 09:24:17 LVp 147/9, 20 09:24:28 AOp 142/74 (104) 09:24:35 AO 144/76 (106) SA 09:25:06 After review of the angiography and assurance of the patient's stability, the catheter was withdrawn from the sheath and CORONARY_ANGIO/FINDINGS Tubular 40% mid lesion in left main Diffuse Luminal Irregularities 25% proximal lesion in LAD Discrete Thrombus 100% mid lesion in circumflex Collateral flow from circumflex to circumflex Tubular Calcified 85% ostial lesion in RCA Diffuse Luminal Irregularities 20% proximal lesion in RCA Tubular 85 % ostial lesion in RCA , Drug Eluting Stent to 0 % Pre BRITTNEE flow: 3 ,Post BRITTNEE flow: 3 Lesion complexity: High/C Comment: IVUS of RCA demonstrated a very large vessel with 85% ostial stenosis. Collateral(s): Collateral flow from circumflex to circumflex ANNOTATION: IVUS Ventricular Function: LV Gram- 50% EF with normal wall motion Valve Function: Valve functions within normal limits. Dominance: < Right Dominant INTERVENTIONAL RESULTS: Interventional Indication: New onset Angina (<= 2 months) Syntax Score: Low Drug Eluting Stent RCA Proximal ANNOTATION: IVUS Comment: IVUS of RCA demonstrated a very large vessel with 85% ostial stenosis. POST-OP DIAGNOSIS: Coronary Artery Disease : causing symptoms CARDIAC RECOMMENDATIONS: Medical therapy , minimal 1 year of uninterrupted dual antiplatelet therapy Risk factor modification Cardiac Rehab consult COMMENTS: IVUS of RCA demonstrated a very large vessel with 85% ostial stenosis. No Complications ____ Intraprocedure Medications: Versed 2 mg IV given for anxiety and general discomfort per verbal order - Eric Rios M.D. Heparin dose doublechecked by Dr. Rios 4000 units IVP per verbal order - Eric Rios M.D. Fentanyl 50 mcg IV given for anxiety and general discomfort per verbal order - Eric Rios M.D. Heparin dose doublechecked by Dr. Rios 2500 units IVP per verbal order - Eric Rios M.D. Plavix 600 mg PO per verbal order - Eric Rios M.D. Equipment: Sheath(s) Onovative 6F 10CM .021 GLIDESHEATH Slender SS Wire(s) [employer] J WIRE .[id number] [employer] GUIDEWIRE [employer] Balance wire .014 x 190cm Catheter(s) Onovative RADIAL TIG 4.0 DIAG CATH 5F Guide(s) [employer] 6F JR4 GUIDE Balloon(s) [employer] [facility] 3.0 X 12 TREK .014 RX BALLOON [employer] [facility] 5.0 X 12 NC TREK .014 RX BALLOON Stent(s) [address] 5.00 X 12 RESOLUTE ADIEL RX STENT Other [employer] [employer] .014 X 150CM ULTRASOUND CATH VASCULAR SOLUTIONS Vasc Band - Regular 24cm See Nursing Notes for further details Signed By Eric Rios MD On 01/31/2018 10:13:07 AM Eric Rios MD ____ Invalid Interpretation Code [facility] POC Activated Clotting Timeo n 01-31-2018 Coagulation activated s Invalid Interpretation Code seconds [facility] Coagulation activated 172 s Invalid Interpretation Code [facility] POC Glucoseon 01-31-2018 Glucose mass conc 179 mg/dL High 65 - 99 mg/dL [facility] Interpretation and review of laboratory results Abnormal Invalid Interpretation Code [facility] Glucose mass conc 150 mg/dL High 65 - 99 mg/dL [facility] Interpretation and review of laboratory results Abnormal Invalid Interpretation Code [facility] Basic Metabolic Panelon 01-14 Calcium 9.1 mg/dL Normal 8.4-10.2 [facility] Comment on above: Performed By: #### C BCDIF, CHEM8 ####Unless otherwise noted, all testing performed by [place] [phone]: [id number] Director: Heraclio Davis M.D. Chloride 105 mmol/L Normal 98-108 [facility] Comment on above: Performed By: #### C BCDIF, CHEM8 ####Unless otherwise noted, all testing performed by [place] [phone]: [id number] Director: Heraclio Davis M.D. CO2 27 mmol/L Normal 21-32 [facility] Comment on above: Performed By: #### C BCDIF, CHEM8 ####Unless otherwise noted, all testing performed by [place] [phone]: [id number] Director: Heraclio Davis M.D. Creatinine 1.66 mg/dL High 0.80-1.30 [facility] Comment on above: Performed By: #### C BCDIF, CHEM8 ####Unless otherwise noted, all testing performed by [place] [phone]: [id number] Director: Heraclio Davis M.D. eGFR (black) 50 mL/min/{1.73_m2} Low >60 [facility] Comment on above: Result Comment: Afri can [place] GFR Calc Performed By: #### C BCDIF, CHEM8 ####Unless otherwise noted, all testing performed by [address] [phone]: [id number] Director: Heraclio Davis M.D. GFR Calc eGFR (non-black) 41 mL/min/{1.73_m2} Low >60 [facility] Comment on above: Result Comment: Non- GFR CalceGFR is an estimated Glomerular Filtration Rate based on the valueof the patient's serum creatinine. In outpatients, eGFR should be usedas a helpful tool in screening for CKD. In inpatients or patients withacute renal failure, eGFR represents the GFR at the moment of the drawand should be used with caution. Performed By: #### C BCDIF, CHEM8 ####Unless otherwise noted, all testing performed by [address] [phone]: [id number] Director: Heraclio Davis M.D. Non- GFR Calc eGFR is an estimated Glomerular Filtration Rate based on the value of the patient's serum creatinine. In outpatients, eGFR should be used as a helpful tool in screening for CKD. In inpatients or patients with acute renal failure, eGFR represents the GFR at the moment of the draw and should be used with caution. Glucose mass conc 144 mg/dL High 70-99 [facility] Comment on above: Result Comment: This test result might be falsely depressed or falsely elevated onsamples drawn from patients taking Sulfasalazine and Sulfapyridine.Venipuncture should occur prior to taking either of these drugs. Performed By: #### C BCDIF, CHEM8 ####Unless otherwise noted, all testing performed by [address] [phone]: [id number] Director: Heraclio Davis M.D. This test result joon ht be falsely depressed or falsely elevated on samples drawn from patients taking Sulfasalazine and Sulfapyridine. Venipuncture should occur prior to taking either of these drugs. Interpretation and review of laboratory results Abnormal Invalid Interpretation Code [facility] Potassium molar conc 3.9 mmol/L Normal 3.5-5.1 [facility] Comment on above: Performed By: #### C BCDIF, CHEM8 ####Unless otherwise noted, all testing performed by [address] [phone]: [id number] Director: Heraclio Davis M.D. Sodium 139 mmol/L Normal 135-145 [facility] Comment on above: Performed By: #### C BCDIF, CHEM8 ####Unless otherwise noted, all testing performed by [address] [phone]: [id number] Director: Heraclio Davis M.D. Urea nitrogen 21 mg/dL Normal 8-25 [facility] Comment on above: Performed By: #### C BCDIF, CHEM8 ####Unless otherwise noted, all testing performed by [address] [phone]: [id number] Director: Heraclio Davis M.D. CBC and Differentialon 01-27 Basophils Auto #/vol (Bld) 0.0 K/mcL Invalid Interpretation Code 0 - 0.2 [facility] Eosinophils 0.3 K/mcL Invalid Interpretation Code 0 - 0.5 [facility] Erythrocytes (RBC) 4.08 M/mcL Invalid Interpretation Code 4.0 - 5.5 [facility] Lymphocytes 1.2 K/mcL Invalid Interpretation Code 0.9 - 3.6 [facility] Monocytes 0.6 K/mcL Invalid Interpretation Code 0.2 - 0.6 [facility] Neutrophils 3.9 K/mcL Invalid Interpretation Code 1.4 - 6.8 [facility] Platelets 215 K/mcL Invalid Interpretation Code 139 - 354 [facility] Segmented Neut 64.2 % Invalid Interpretation Code [facility] WBC (Leukocytes) 6.1 K/mcL Invalid Interpretation Code 3.6 - 10.4 [facility] CBC with Diffon 01-27-2018 Basophils Auto #/vol (Bld) 0.0 K/mcL Normal 0-0.2 [facility] Comment on above: Performed By: #### C BCDIF, CHEM8 ####Unless otherwise noted, all testing performed by [address] [phone]: [id number] Director: Heraclio Davis M.D. Basophils/100 WBC Auto (Bld) 0.5 % Normal [facility] Comment on above: Performed By: #### C BCDIF, CHEM8 ####Unless otherwise noted, all testing performed by [address] [phone]: [id number] Director: Heraclio Davis M.D. Eosinophils 0.3 K/mcL Normal 0-0.5 [facility] Comment on above: Performed By: #### C BCDIF, CHEM8 ####Unless otherwise noted, all testing performed by [address] [phone]: [id number] Director: Heraclio Davis M.D. Eosinophils/100 leukocytes 5.3 % Normal [facility] Comment on above: Performed By: #### C BCDIF, CHEM8 ####Unless otherwise noted, all testing performed by [address] [phone]: [id number] Director: Heraclio Davis M.D. Erythrocyte distribution width Auto Ratio (RBC) 13.7 % Normal 10-14.3 [facility] Comment on above: Performed By: #### C BCDIF, CHEM8 ####Unless otherwise noted, all testing performed by [address] [phone]: [id number] Director: Heraclio Davis M.D. Erythrocytes (RBC) 4.08 M/mcL Normal 4.0-5.5 [facility] Comment on above: Performed By: #### C BCDIF, CHEM8 ####Unless otherwise noted, all testing performed by [address] [phone]: [id number] Director: Heraclio Davis M.D. Hematocrit (HCT) 39.9 % Normal 37.9-49.2 [facility] Comment on above: Performed By: #### C BCDIF, CHEM8 ####Unless otherwise noted, all testing performed by [address] [phone]: [id number] Director: Heraclio Davis M.D. Hemoglobin mass conc (Bld) 14.0 g/dL Normal 12.9-16.9 [facility] Comment on above: Performed By: #### C BCDIF, CHEM8 ####Unless otherwise noted, all testing performed by [address] [phone]: [id number] Director: Heraclio Davis M.D. Lymphocytes 1.2 K/mcL Normal 0.9-3.6 [facility] Comment on above: Performed By: #### C BCDIF, CHEM8 ####Unless otherwise noted, all testing performed by [address] [phone]: [id number] Director: Heraclio Davis M.D. Lymphocytes/100 leukocytes 20.1 % Normal [facility] Comment on above: Performed By: #### C BCDIF, CHEM8 ####Unless otherwise noted, all testing performed by [address] [phone]: [id number] Director: Heraclio Davis M.D. MCH 34.4 pg Normal 27.7-34.6 [facility] Comment on above: Performed By: #### C BCDIF, CHEM8 ####Unless otherwise noted, all testing performed by [address] [phone]: [id number] Director: Heraclio Davis M.D. MCHC mass conc (RBC) 35.1 g/dL Normal 32.9-35.5 [facility] Comment on above: Performed By: #### C BCDIF, CHEM8 ####Unless otherwise noted, all testing performed by [address] [phone]: [id number] Director: Heraclio Davis M.D. MCV 97.9 fL Normal 82.8-99.3 [facility] [facility] Comment on above: Performed By: #### C BCDIF, CHEM8 ####Unless otherwise noted, all testing performed by [facility] [id number]: [id number] Director: Heraclio Davis M.D. Monocytes 0.6 K/mcL Normal 0.2-0.6 [facility] Comment on above: Performed By: #### C BCDIF, CHEM8 ####Unless otherwise noted, all testing performed by [place] [id number]: [id number] Director: Heraclio Davis M.D. Monocytes/100 leukocytes 9.9 % Normal [facility] Comment on above: Performed By: #### C BCDIF, CHEM8 ####Unless otherwise noted, all testing performed by [address]CLIA: [id number] Director: Heraclio Davis M.D. Neutrophils 3.9 K/mcL Normal 1.4-6.8 [facility] Comment on above: Performed By: #### C BCDIF, CHEM8 ####Unless otherwise noted, all testing performed by [address]CLIA: [id number] Director: Heraclio Davis M.D. Platelet mean volume (PMV) 8.6 fL Normal 6.6-10.8 [facility] Comment on above: Performed By: #### C BCDIF, CHEM8 ####Unless otherwise noted, all testing performed by [place] [id number]: [id number] Director: Heraclio Davis M.D. Platelets 215 K/mcL Normal 139-354 [facility] Comment on above: Performed By: #### C BCDIF, CHEM8 ####Unless otherwise noted, all testing performed by [address] [id number]: [id number] Director: Heraclio Davis M.D. Segmented Neut % 64.2 % Normal [facility] Comment on above: Performed By: #### C BCDIF, CHEM8 ####Unless otherwise noted, all testing performed by [address] [phone]: [id number] Director: Heraclio Davis M.D. WBC (Leukocytes) 6.1 K/mcL Normal 3.6-10.4 [facility] Comment on above: Performed By: #### C BCDIF, CHEM8 ####Unless otherwise noted, all testing performed by [address] [phone]: [id number] Director: Heraclio Davis M.D. ECG 12 [place] 01-27-2018 Atrial Rate Invalid Interpretation Code [facility] P Fate Invalid Interpretation Code [facility] P-R Interval Invalid Interpretation Code [facility] Q-T Interval Invalid Interpretation Code [facility] Q-T Interval (corrected) Invalid Interpretation Code [facility] QRS Duration Invalid Interpretation Code [facility] QTC Calculation (Bezet) Invalid Interpretation Code [facility] R Fate Invalid Interpretation Code [facility] T Fate Invalid Interpretation Code [facility] Ventricular Rate Invalid Interpretation Code [facility] CT CHEST W/O CONTRASTon CT CHEST W/O CONTRAST Final ReportAccession No: [id number] Performed: Jan 19 2018 11:23AMExamination: CT CHEST W/O CONTRASTEXAM: CT CHEST W/O CONTRASTCLINICAL STATEMENT: Short of breath.COMPARISON: None.TECHNIQUE: CT examination of the chest without IV contrast. Coronal andsagittal reformations were performed.Dose reduction techniques were achieved by using automated exposurecontroland/or adjustment of mA and/or kV according to patient size and/or use ofiterative reconstruction technique.FINDINGS: The heart appears normal size. Dense three-vessel coronaryarterycalcificati ons are present. The thoracic aorta appears normal caliber.Prominent subcarinal lymph node measuring 18 mm short axis diameter. Nopleuralor pericardial effusion.The airway is patent and unremarkable. No airspace consolidation. A 6 mmnoduleat the right lung lower lobe (image 43 of series 301). A 5 mm elongatednodulardensity in the right lower lobe more superiorly (image 42 of series 301).Acouple tiny calcified granulomas.Asymmetric enlargement of the left thyroid gland. Included lower neck softtissues are otherwise unremarkable. Limited visualization of the upperabdomenis unremarkable.Mild degenerative changes in the thoracic spine. No suspicious osseouslesion.IMPRESSION: 1. No evident acute process in the chest.2. A 6 mm noncalcified nodule in the right lung lower lobe, and another 5mmelongated nodular density in the right lower lobe. If the patient has riskfactors for pulmonary malignancy, a followup chest CT in 6 to 12 months isrecommended, then at 18 to 24 months. If the patient does not have riskfactors, a followup chest CT in 6 to 12 months is recommended, withconsideration to a followup chest CT in 18 to 24 months.3. Dense three-vessel coronary artery calcifications.4. A prominent nonspecific subcarinal lymph node. Attention on followuprecommended.Inter preting Physician: KARLA WILKS M.D.Trans: mad : cc: Normal [facility] Vital Signs Date Time Vital Sign Value Performing Clinician Facility 04-19-2025 13:02040 Body height 170.2 cm Zahra Sanchez MD Work Phone: [facility] 04-19-2025 13:02-040 Body mass index (BMI) [Ratio] 31.94 kg/m2 Zahra Sanchez MD Work Phone: [facility] 04-19-2025 13:02-0400 Body weight 92.49 kg Zahra Sanchez MD Work Phone: [facility] 04-19-2025 13:02-0400 Diastolic blood pressure 80 mm[Hg] Zahra Sanchez MD Work Phone: [facility] 04-19-2025 13:02-0400 Heart rate 68 /min Zahra Sanchez MD Work Phone: [facility] 04-19-2025 13:02-0400 Systolic blood pressure 122 mm[Hg] Zahra Sanchez MD Work Phone: [facility] 01-30-2025 14:05-0400 Body height 170.2 cm Broderick Garcia MD Work Phone: [facility] 01-30-2025 14:05-0400 Body mass index (BMI) [Ratio] 31.95 kg/m2 Broderick Garcia MD Work Phone: [facility] 01-30-2025 14:05-0400 Body weight 92.53 kg Broderick Garcia MD Work Phone: [facility] 01-30-2025 14:05-0400 Diastolic blood pressure 64 mm[Hg] Broderick Garcia MD Work Phone: [facility] 01-30-2025 14:05-0400 Heart rate 76 /min Broderick Garcia MD Work Phone: [facility] 01-30-2025 14:05-0400 SaO2% (BldA) [Mass fraction] 96 % Broderick Garcia MD Work Phone: [facility] 01-30-2025 14:05-0400 Systolic blood pressure 104 mm[Hg] Broderick Garcia MD Work Phone: [facility] 01-15-2025 14:43-0400 Body height 170.[address] Zahra Sanchez MD Work Phone: [facility] 01-15-2025 14:43-0400 Body mass index (BMI) [Ratio] 32.4 kg/m2 Dr. Zahra Sanchez MD Work Phone: [facility] 01-15-2025 14:43-0400 Body weight 93.[address] Zahra Sanchez MD Work Phone: [facility] 10-17-2024 12:57-0500 Body height 170.2 cm Zahra Sanchez MD Work Phone: [facility] 10-17-2024 12:57-0500 Body mass index (BMI) [Ratio] 32.05 kg/m2 Zahra Sanchez MD Work Phone: [facility] 10-17-2024 12:57-0500 Body weight 92.85 kg Zahra Sanchez MD Work Phone: [facility] 10-17-2024 12:57-0500 Diastolic blood pressure 72 mm[Hg] Zahra Sanchez MD Work Phone: [facility] 10-17-2024 12:57-0500 Heart rate 69 /min Zahra Sanchez MD Work Phone: [facility] 10-17-2024 12:57-0500 SaO2% (BldA) [Mass fraction] 96 % Zahra Sanchez MD Work Phone: [facility] 10-17-2024 12:57-0500 Systolic blood pressure 124 mm[Hg] Zahra Sanchez MD Work Phone: [facility] 08-01-2024 14:49-0500 Body mass index (BMI) [Ratio] 32.41 kg/m2 Broderick Garcia MD Work Phone: [facility] 08-01-2024 14:49-0500 Body weight 93.89 kg Broderick Garcia MD Work Phone: [facility] 08-01-2024 14:49-0500 Diastolic blood pressure 60 mm[Hg] Broderick Garcia MD Work Phone: [facility] 08-01-2024 14:49-0500 Heart rate 67 /min Broderick Garcia MD Work Phone: [facility] 08-01-2024 14:49-0500 SaO2% (BldA) [Mass fraction] 97 % Broderick Garcia MD Work Phone: [facility] 08-01-2024 14:49-0500 Systolic blood pressure 108 mm[Hg] Broderick Garcia MD Work Phone: [facility] 05-03-2024 09:22-0400 Body mass index (BMI) [Ratio] 31.63 kg/m2 Zahra Sanchez MD Work Phone: [facility] 05-03-2024 09:22-0400 Body weight 91.63 kg Zahra Sanchez MD Work Phone: [facility] 05-03-2024 09:22-0400 Diastolic blood pressure 68 mm[Hg] Zahra Sanchez MD Work Phone: [facility] 05-03-2024 09:22-0400 Heart rate 72 /min Zahra Sanchez MD Work Phone: [facility] 05-03-2024 09:22-0400 SaO2% (BldA) [Mass fraction] 96 % Zahra Sanchez MD Work Phone: [facility] 05-03-2024 09:22-0400 Systolic blood pressure 130 mm[Hg] Zahra Sanchez MD Work Phone: [facility] 02-01-2024 15:02-0400 Body height 170.2 cm Broderick Garcia MD Work Phone: [facility] 02-01-2024 15:02-0400 Body mass index (BMI) [Ratio] 31.32 kg/m2 Broderick Garcia MD Work Phone: [facility] 02-01-2024 15:02-0400 Body weight 90.72 kg Broderick Garcia MD Work Phone: [facility] 02-01-2024 15:02-0400 Diastolic blood pressure 66 mm[Hg] Broderick Garcia MD Work Phone: [facility] 02-01-2024 15:02-0400 Heart rate 73 /min Broderick Garcia MD Work Phone: [facility] 02-01-2024 15:02-0400 SaO2% (BldA) [Mass fraction] 97 % Broderick Garcia MD Work Phone: [facility] 02-01-2024 15:02-0400 Systolic blood pressure 126 mm[Hg] Broderick Garcia MD Work Phone: [facility] 11-09-2023 14:01-0400 Body height 170.2 cm Mary Garcia [employer] Work Phone: [facility] 11-09-2023 14:01-0400 Body mass index (BMI) [Ratio] 29.91 kg/m2 Mary Patchen [employer] Work Phone: [facility] 11-09-2023 14:01-0400 Body temperature 98.1 [degF] Mary Patchen [employer]ING [employer] Work Phone: [facility] 11-09-2023 14:01-0400 Body weight 86.64 kg Mary Patchen [employer]ING [employer] Work Phone: [facility] 11-09-2023 14:01-0400 Diastolic blood pressure 68 mm[Hg] Mary Benitezen [employer]ING [employer]AD Work Phone: [facility] 11-09-2023 14:01-0400 Heart rate 82 /min Mary Ashley [employer]ING [employer] Work Phone: [facility] 11-09-2023 14:01-0400 Respiratory rate 18 /min Mary Patchblue [employer]ER[employer]ING LEAD Work Phone: [facility] 11-09-2023 14:01-0400 SaO2% (BldA) [Mass fraction] 98 % Mary Garcia [employer]ING [employer]AD Work Phone: [facility] 11-09-2023 14:01-0400 Systolic blood pressure 111 mm[Hg] Mary Garcia [employer]ER[employer]ENSING [employer]AD Work Phone: [facility] 11-05-2023 13:42-0400 Body height 170.2 cm Zahra Sanchez MD Work Phone: [facility] 11-05-2023 13:42-0400 Body mass index (BMI) [Ratio] 30.74 kg/m2 Zahra Sanchez MD Work Phone: [facility] 11-05-2023 13:42-0400 Body weight 89.04 kg Zahra Sanchez MD Work Phone: [facility] 11-05-2023 13:42-0400 Diastolic blood pressure 52 mm[Hg] Zahra Sanchez MD Work Phone: [facility] 11-05-2023 13:42-0400 Heart rate 76 /min Zahra Sanchez MD Work Phone: [facility] 11-05-2023 13:42-0400 Systolic blood pressure 118 mm[Hg] Zahra Sanchez MD Work Phone: [facility] 09-23-2023 13:25-0500 Body height 170.2 cm Zahra Sanchez MD Work Phone: [facility] 09-23-2023 13:25-0500 Body mass index (BMI) [Ratio] 29.93 kg/m2 Zahra Sanchez MD Work Phone: [facility] 09-23-2023 13:25-0500 Body weight 86.68 kg Zahra Sanchez MD Work Phone: [facility] 09-23-2023 13:25-0500 Diastolic blood pressure 60 mm[Hg] Zahra Sanchez MD Work Phone: [facility] 09-23-2023 13:25-0500 Heart rate 127 /min Zahra Sanchez MD Work Phone: [facility] 09-23-2023 13:25-0500 SaO2% (BldA) [Mass fraction] 93 % Zahra Sanchez MD Work Phone: [facility] 09-23-2023 13:25-0500 Systolic blood pressure 98 mm[Hg] Zahra Sanchez MD Work Phone: [facility] 09-18-2023 15:00-0500 Heart rate 85 /min Jose Carlos Malagon MD Work Phone: [facility] 09-18-2023 15:00-0500 Respiratory rate 21 /min Jose Carlos Malagon MD Work Phone: [facility] 09-18-2023 15:00-0500 SaO2% (BldA) [Mass fraction] 93 % Jose Carlos Malagon MD Work Phone: [facility] 09-18-2023 12:00-0500 Body temperature 97.5 [degF] Jose Carlos Malagon MD Work Phone: [facility] 09-18-2023 12:00-0500 Diastolic blood pressure 63 mm[Hg] Jose Carlos Malagon MD Work Phone: [facility] 09-18-2023 12:00-0500 Systolic blood pressure 118 mm[Hg] Jose Carlos Malagon MD Work Phone: [facility] 09-17-2023 06:00-0500 Body mass index (BMI) [Ratio] 30.85 kg/m2 Jose Carlos Malagon MD Work Phone: [facility] 09-17-2023 06:00-0500 Body weight 89.36 kg Jose Carlos Malagon MD Work Phone: [facility] 09-16-2023 12:26-0500 Body height 170.2 cm Jose Carlos Malagon MD Work Phone: [facility] 2023 09:06-0500 Body temperature Jose Carlos Malagon MD Work Phone: 0(238)[phone] [place] [address] 2023 09:06-0500 SaO2% (BldA) [Mass fraction] 98 % Jose Carlos Malagon MD Work Phone: [facility] 2023 04:54-0500 Body temperature [facility] Comment on above: Result Comment: NOTE: Patient Results ar e Not Corrected for Temperature Performed By: #### 3 255-7 #### PATRICIA NAVARRETE ([id number]) [facility] ([facility]) [address] [place] [address] 2023 04:54-0500 SaO2% (BldA) [Mass fraction] 98 % [facility] Comment on above: Performed By: #### 3255-7 #### PATRICIA NAVARRETE ([id number]) [facility] ([facility]) [address] [place] [address] 09-13-2023 16:41-0500 Body temperature 37.0 Jose Carlos Malagon MD Work Phone: [facility] 09-13-2023 16:41-0500 SaO2% (BldA) [Mass fraction] 96 % Jose Carlos Malagon MD Work Phone: [facility] 09-13-2023 16:37-0500 Body temperature 37.0 degrees Celsius [facility] Comment on above: Performed By: #### [id number] #### PATRICIA NAVARRETE ([id number]) [facility] ([facility]) [address] [place] [address] 09-13-2023 16:37-0500 SaO2% (BldA) [Mass fraction] 96 % [facility] Comment on above: Performed By: #### [id number] #### PATRICIA NAVARRETE ([id number]) [facility] ([facility]) [address] [place] [address] 09-13-2023 15:42-0500 Body temperature 37.0 Jose Carlos Malagon MD Work Phone: [facility] 09-13-2023 15:42-0500 SaO2% (BldA) [Mass fraction] 98 % Jose Carlos Malagon MD Work Phone: [facility] 09-13-2023 15:38-0500 Body temperature 37.0 degrees Celsius [facility] Comment on above: Performed By: #### [id number] #### PATRICIA NAVARRETE ([id number]) [facility] ([facility]) [address] [place] [address] 09-13-2023 15:38-0500 SaO2% (BldA) [Mass fraction] 98 % [facility] Comment on above: Performed By: #### [id number] #### PATRICIA NAVARRETE ([id number]) [facility] ([facility]) [address] [place] [id number] 09-13-2023 13:09-0500 Body temperature 37.0 Jose Carlos Malagon MD Work Phone: [facility] 09-13-2023 13:09-0500 SaO2% (BldA) [Mass fraction] 98 % Jose Carlos Malagon MD Work Phone: [facility] 09-13-2023 13:05-0500 Body temperature 37.0 degrees Celsius [facility] Comment on above: Performed By: #### 71574-2 #### PATRICIA NAVARRETE ([id number]) [facility] ([facility]) [address] [place] [address] 09-13-2023 13:05-0500 SaO2% (BldA) [Mass fraction] 98 % [facility] Comment on above: Performed By: #### [id number] #### PATRICIA NAVARRETE ([id number]) [facility] ([facility]) [address] [place] [address] 09-13-2023 11:44-0500 Body temperature 37.0 Jose Carlos Malagon MD Work Phone: [facility] 09-13-2023 11:44-0500 SaO2% (BldA) [Mass fraction] 99 % Jose Carlos Malagon MD Work Phone: [facility] 09-13-2023 11:42-0500 Body temperature 37.0 degrees Celsius [facility] Comment on above: Result Comment: NOTE: Patient Results ar e Not Corrected for Temperature Performed By: #### 2 4341-0 #### PATRICIA NAVARRETE ([id number]) [facility] ([facility]) [address] [place] [id number] 09-13-2023 11:42-0500 SaO2% (BldA) [Mass fraction] 99 % [facility] Comment on above: Performed By: #### [id number] #### PATRICIA NAVARRETE ([id number]) [facility] ([facility]) [address] [place] [id number] 09-13-2023 11:07-0500 Body temperature 37.0 Jose Carlos Malagon MD Work Phone: [facility] 09-13-2023 11:07-0500 SaO2% (BldA) [Mass fraction] 99 % Jose Carlos Malagon MD Work Phone: [facility] 09-13-2023 11:05-0500 Body temperature 37.0 degrees Celsius [facility] Comment on above: Result Comment: NOTE: Patient Results ar e Not Corrected for Temperature Performed By: #### 2 4341-0 #### PATRICIA NAVARRETE ([id number]) [facility] ([facility]) [address] [place] [address] 09-13-2023 11:05-0500 SaO2% (BldA) [Mass fraction] 99 % [facility] Comment on above: Performed By: #### 06186-5 #### PATRICIA NAVARRETE ([id number]) [facility] ([facility]) [address] [place] [address] 09-13-2023 10:17-0500 Body temperature 37.0 Jose Carlos Malagon MD Work Phone: [facility] 09-13-2023 10:17-0500 SaO2% (BldA) [Mass fraction] 100 % Jose Carlos Malagon MD Work Phone: [facility] 09-13-2023 10:12-0500 Body temperature 37.0 degrees Celsius [facility] Comment on above: Result Comment: NOTE: Patient Results ar e Not Corrected for Temperature Performed By: #### 2 4341-0 #### PATRICIA NAVARRETE ([id number]) [facility] ([facility]) [address] [place] [address] 09-13-2023 10:12-0500 SaO2% (BldA) [Mass fraction] 100 % [facility] Comment on above: Performed By: #### 63871-0 #### PATRICIA NAVARRETE ([id number]) [facility] ([facility]) [address] [place] [address] 09-13-2023 09:42-0500 Body temperature 37.0 Jose Carlos Malagon MD Work Phone: [facility] 09-13-2023 09:42-0500 SaO2% (BldA) [Mass fraction] 99 % Jose Carlos Malagon MD Work Phone: [facility] 09-13-2023 09:40-0500 Body temperature 37.0 degrees Celsius [facility] Comment on above: Result Comment: NOTE: Patient Results ar e Not Corrected for Temperature Performed By: #### 9 3685-6 ####PATRICIA NAVARRETE ([id number])[facility] ([facility])[address] [place] [address] 09-13-2023 09:40-0500 SaO2% (BldA) [Mass fraction] 99 % [facility] Comment on above: Performed By: #### 18509-0 ####PATRICIA SINGH ([id number])[facility] ([facility])[address] [place] [id number] 09-13-2023 09:18-0500 Body temperature 37.0 Jose Carlos Malagon MD Work Phone: [facility] 09-13-2023 09:18-0500 SaO2% (BldA) [Mass fraction] 99 % Jose Carlos Malagon MD Work Phone: [facility] 09-13-2023 09:04-0500 Body temperature 37.0 degrees Celsius [facility] Comment on above: Result Comment: NOTE: Patient Results ar e Not Corrected for Temperature Performed By: #### 9 3685-6 ####PATRICIA NAVARRETE ([id number])[facility] ([facility])[address] [place] [address] 09-13-2023 09:04-0500 SaO2% (BldA) [Mass fraction] 99 % [facility] Comment on above: Performed By: #### [id number] ####PATRICIA SINGH ([id number])[facility] ([facility])[address] [place] [address] 09-13-2023 07:57-0500 Body temperature 37.0 Jose Carlos Malagon MD Work Phone: [facility] 09-13-2023 07:57-0500 SaO2% (BldA) [Mass fraction] 99 % Jose Carlos Malagon MD Work Phone: [facility] 09-13-2023 07:55-0500 Body temperature 37.0 degrees Celsius [facility] Comment on above: Result Comment: NOTE: Patient Results ar e Not Corrected for Temperature Performed By: #### 9 3685-6 ####PATRICIA NAVARRETE ([id number])[facility] ([facility])[address] [place] [address] 09-13-2023 07:55-0500 SaO2% (BldA) [Mass fraction] 99 % [facility] Comment on above: Performed By: #### [id number] ####PATRICIA SINGH ([id number])[facility] ([facility])[address] [place] [address] 09-10-2023 11:12-0500 Body temperature 37.0 [facility] Comment on above: NOTE: Patient Results are Not Corrected for Temperature 09-10-2023 11:12-0500 SaO2% (BldA) [Mass fraction] 97 % [facility] 09-10-2023 11:11-0500 Body temperature 37.0 degrees Celsius [facility] Comment on above: Result Comment: NOTE: Patient Results ar e Not Corrected for Temperature Performed By: #### 2 4341-0 #### PATRICIA NAVARRETE ([id number]) [facility] ([facility]) [address] [place] [address] 09-10-2023 11:11-0500 SaO2% (BldA) [Mass fraction] 97 % [facility] Comment on above: Performed By: #### 04117-7 #### PATRICIA NAVARRETE ([id number]) [facility] ([facility]) [address] [place] [address] 08-24-2023 13:59-0500 Body height 170.2 cm Jose Carlos Malagon MD Work Phone: [facility] 08-24-2023 13:59-0500 Body mass index (BMI) [Ratio] 31.42 kg/m2 Jose Carlos Malagon MD Work Phone: 4(997)[phone] [place] [address] 08-24-2023 13:59-0500 Body temperature 97.3 [degF] Jose Carlos Malagon MD Work Phone: 5(619)699-103983 [place] [address] 08-24-2023 13:59-0500 Body weight 90.99 kg Jose Carlos Malagon MD Work Phone: 5(457)873-761636 [place] [address] 08-24-2023 13:59-0500 Diastolic blood pressure 60 mm[Hg] Jose Carlos Malagon MD Work Phone: 2(622)588-444536 [place] [address] 08-24-2023 13:59-0500 Heart rate 83 /min Jose Carlos Malagon MD Work Phone: 4(571)599-340683 [place] [address] 08-24-2023 13:59-0500 Respiratory rate 17 /min Jose Carlos Malagon MD Work Phone: 1(165)601-377936 [place] [address] 08-24-2023 13:59-0500 SaO2% (BldA) [Mass fraction] 96 % Jose Carlos Malagon MD Work Phone: [facility] 08-24-2023 13:59-0500 Systolic blood pressure 92 mm[Hg] Jose Carlos Malagon MD Work Phone: [facility] 08-04-2023 09:14-0500 Body height 170.2 cm Zahra Sanchez MD Work Phone: [facility] 08-04-2023 09:14-0500 Body mass index (BMI) [Ratio] 31.73 kg/m2 Zahra Sanchez MD Work Phone: [facility] 08-04-2023 09:14-0500 Body weight 91.9 kg Zahra Sanchez MD Work Phone: [facility] 08-04-2023 09:14-0500 Diastolic blood pressure 58 mm[Hg] Zahra Sanchez MD Work Phone: [facility] 08-04-2023 09:14-0500 Heart rate 90 /min Zahra Sanchez MD Work Phone: [facility] 08-04-2023 09:14-0500 SaO2% (BldA) [Mass fraction] 94 % Zahra Sanchez MD Work Phone: [facility] 08-04-2023 09:14-0500 Systolic blood pressure 95 mm[Hg] Zahra Sanchez MD Work Phone: [facility] 08-03-2023 15:02-0500 Body height 170.2 cm Broderick Garcia MD Work Phone: [facility] 08-03-2023 15:02-0500 Body mass index (BMI) [Ratio] 31.53 kg/m2 Broderick Garcia MD Work Phone: [facility] 08-03-2023 15:02-0500 Body weight 91.31 kg Broderick Garcia MD Work Phone: [facility] 08-03-2023 15:02-0500 Diastolic blood pressure 54 mm[Hg] Broderick Garcia MD Work Phone: [facility] 08-03-2023 15:02-0500 Heart rate 70 /min Broderick Garcia MD Work Phone: [facility] 08-03-2023 15:02-0500 SaO2% (BldA) [Mass fraction] 96 % Broderick Garcia MD Work Phone: [facility] 08-03-2023 15:02-0500 Systolic blood pressure 108 mm[Hg] Broderick Garcia MD Work Phone: [facility] 06-21-2023 12:45-0500 Body height 172.[address] 06-21-2023 12:45-0500 Body mass index (BMI) [Ratio] 29.65 kg/m2 [facility] 1 [facility] 06-21-2023 12:45-0500 Body weight 88.45 kg [facility] 1 [facility] 06-21-2023 12:45-0500 Diastolic blood pressure 73 mm[Hg] [facility] 1 [facility] 06-21-2023 12:45-0500 Heart rate 75 /min [facility] 1 [facility] 06-21-2023 12:45-0500 Respiratory rate 18 /min [facility] 1 [facility] 06-21-2023 12:45-0500 SaO2% (BldA) [Mass fraction] 95 % [facility] 1 [facility] 06-21-2023 12:45-0500 Systolic blood pressure 123 mm[Hg] [facility] 1 [facility] 06-07-2023 13:24-040 Body height 170.2 cm Broderick Garcia MD Work Phone: [facility] 06-07-2023 13:24-0400 Body mass index (BMI) [Ratio] 31.64 kg/m2 Broderick Garcia MD Work Phone: [facility] 06-07-2023 13:24-0400 Body weight 91.63 kg Broderick Garcia MD Work Phone: [facility] 06-07-2023 13:24-0400 Diastolic blood pressure 72 mm[Hg] Broderick Gracia MD Work Phone: [facility] 06-07-2023 13:24-0400 Heart rate 65 /min Broderick Garcia MD Work Phone: [facility] 06-07-2023 13:24-0400 SaO2% (BldA) [Mass fraction] 97 % Broderick Garcia MD Work Phone: [facility] 06-07-2023 13:24-0400 Systolic blood pressure 116 mm[Hg] Broderick Garcia MD Work Phone: [facility] 05-06-2023 [id number] Body height 170.18 cm Christina Maya Work Phone: YC-Jsxugyofxt-Xdmj [facility] [address] Work Phone: 05-06-2023 15:09-0400 Body mass index (BMI) [Ratio] 31.79 kg/m2 Christina Maya Work Phone: DC-Jpodjjqymw-Rtsd [address] Work Phone: 05-06-2023 15:09-0400 Body surface area Derived from formula 2.03 m2 Christina VelasquezDubb Work Phone: AZ-Jjlmfkueip-Osrd [address] Work Phone: 05-06-2023 15:09-0400 Body weight 92.08 kg Christina Maya Work Phone: WA-Rlmmapbalb-Mhgm [address] Work Phone: 05-06-2023 15:09-0400 Diastolic blood pressure 60 mm[Hg] Christina VelasquezDubb Work Phone: OP-Sehbhhodub-Fatn [address] Work Phone: 05-06-2023 15:09-0400 Heart rate 76 /min Christina Maya Work Phone: IS-Bcnqoeueup-Klyj [address] Work Phone: 05-06-2023 15:09-0400 SaO2% (BldA) [Mass fraction] 98 % Christina VelasquezDubb Work Phone: LE-Kkojvdunza-Slhp [address] Work Phone: 05-06-2023 15:09-0400 Systolic blood pressure 104 mm[Hg] Christina VelasquezDubb Work Phone: PG-Ucebvbxled-Szfd [address] Work Phone: 09-25-2021 13:52-0500 Body height 170.18 cm Christina VelasquezDubb Work Phone: PS-Skmlzsfibe-Svgs [address] Work Phone: 09-25-2021 13:52-0500 Body mass index (BMI) [Ratio] 31.79 kg/m2 Christina Maya Work Phone: PQ-Axfihboxmv-Hkpv [address] Work Phone: 09-25-2021 13:52-0500 Body surface area Derived from formula 2.03 m2 Christina VelasquezDubb Work Phone: QU-Emwxwzprmx-Lpvl and [address] Work Phone: 09-25-2021 13:52-0500 Body temperature 96.8 [degF] Christina Maya Work Phone: SP-Aqaivslhwx-Khcf [address] Work Phone: 09-25-2021 13:52-0500 Body weight 92.08 kg Christina Maya Work Phone: HX-Xjpjlcskwe-Xtsh [address] Work Phone: 09-25-2021 13:52-0500 Diastolic blood pressure 71 mm[Hg] Christina Maya Work Phone: EM-Cstiqkcxgt-Jqxx [address] Work Phone: 09-25-2021 13:52-0500 Heart rate 68 /min Christina Maya Work Phone: LQ-Fdbpqopttk-Tvrb [address] Work Phone: 09-25-2021 13:52-0500 SaO2% (BldA) [Mass fraction] 98 % Christina Maya Work Phone: VQ-Tldqypddtu-Viyf [address] Work Phone: 09-25-2021 13:52-0500 Systolic blood pressure 105 mm[Hg] Christina Maya Work Phone: UK-Bxvhbdxahq-Cgrp [address] Work Phone: 03-11-2021 15:15-0400 Body height 172.7 cm José Manuel Naylor MD Work Phone: [facility] 03-11-2021 15:15-0400 Body mass index (BMI) [Ratio] 31.08 kg/m2 José Manuel Naylor MD Work Phone: [facility] 03-11-2021 15:15-0400 Body temperature 97.7 [degF] José Manuel Naylor MD Work Phone: [facility] 03-11-2021 15:15-0400 Body weight 92.72 kg José Manuel Naylor MD Work Phone: [facility] 03-11-2021 15:15-0400 Diastolic blood pressure 68 mm[Hg] José Manuel Naylor MD Work Phone: [facility] 03-11-2021 15:15-0400 Heart rate 70 /min José Manuel Naylor MD Work Phone: [facility] 03-11-2021 15:15-0400 SaO2% (BldA) [Mass fraction] 94 % José Manuel Naylor MD Work Phone: [facility] 03-11-2021 15:15-0400 Systolic blood pressure 120 mm[Hg] José Manuel Naylor MD Work Phone: [facility] 05-05-2018 11:25-0400 BMI (Body Mass Index) 31.26 kg/m2 Eric Rios [facility] 05-05-2018 11:25-0400 BP Diastolic 87 mm[Hg] Eric Rios [facility] 05-05-2018 11:25-0400 BP Systolic 151 mm[Hg] Eric Rios [facility] 05-05-2018 11:25-0400 Height 172.7 cm Eric Rios [facility] 05-05-2018 11:25-0400 Pulse (Heart Rate) 69 /min Eric Rios [facility] 05-05-2018 11:25-0400 Pulse Oximetry 97 % Eric Rios [facility] 05-05-2018 11:25-0400 Weight 93.26 kg Eric Rios [facility] 02-23-2018 08:08-0400 BMI (Body Mass Index) 31.02 kg/m2 Yadira Zaman [facility] 02-23-2018 08:08-0400 BP Diastolic 71 mm[Hg] Yadira Zaman [facility] 02-23-2018 08:08-0400 BP Systolic 120 mm[Hg] Yadira Zaman [facility] 02-23-2018 08:08-0400 Pulse (Heart Rate) 70 /min Yadira Zaman [facility] 02-23-2018 08:08-0400 Pulse Oximetry 97 % Yadira Zaman [facility] 02-23-2018 08:08-0400 Respiratory Rate 16 /min Yadira Zaman [facility] 02-23-2018 08:08-0400 Weight 92.53 kg Yadira Zaman [facility] 02-01-2018 07:30-0400 Body Temperature 98.29 [degF] Eric Rios [facility] 02-01-2018 07:30-0400 BP Diastolic 83 mm[Hg] Eric Rios [facility] 02-01-2018 07:30-0400 BP Systolic 149 mm[Hg] Eric Rios [facility] 02-01-2018 07:30-0400 Pulse (Heart Rate) 100 /min Eric Rios [facility] 02-01-2018 07:30-0400 Pulse Oximetry 96 % Eric Rios [facility] 02-01-2018 07:30-0400 Respiratory Rate 17 /min Eric Rios [facility] 01-31-2018 08:21-0400 BMI (Body Mass Index) 31.17 kg/m2 Eric Rios [facility] 01-31-2018 08:21-0400 Height 172.7 cm Eric Rios [facility] 01-31-2018 08:21-0400 Weight 92.99 kg Eric Rios [facility] 01-27-2018 11:00-0400 BMI (Body Mass Index) 31.54 kg/m2 Yadira Zaman [facility] 01-27-2018 11:00-0400 BP Diastolic 82 mm[Hg] Yadira Zaman [facility] 01-27-2018 11:00-0400 BP Systolic 133 mm[Hg] Yadira Zaman [facility] 01-27-2018 11:00-0400 Height 172.7 cm Yadira Zaman [facility] 01-27-2018 11:00-0400 Pulse (Heart Rate) 73 /min Yadira Zaman [facility] 01-27-2018 11:00-0400 Pulse Oximetry 95 % Yadira Zaman [facility] 01-27-2018 11:00-0400 Weight 94.08 kg Yadira Zaman [facility] Encounters Encounter Date Encounter Type Care Provider Facility Start: 06-13-2025 ambulatory Heber Patel Ap lity:[facility] Start: 05-17-2025 End: 05-17-2025 ambulatory [facility] Ambulatory Start: 04-19-2025 End: 04-19-2025 Office outpatient visit 25 minutes Zahra Sanchez MD Work Phone: [facility] Comment on above: HTN (hypertension), benign (Primary Dx); Stage 3a chronic kidney disease (Multi); Type 2 diabetes mellitus with other circulatory complication, without long-term current use of insulin; Atherosclerosis of [place] coronary artery of [place] heart, unspecified whether angina present; Hyperlipidemia, unspecified hyperlipidemia type; Hypothyroidism, unspecified type; Gastroesophageal reflux disease, unspecified whether esophagitis present Start: 04-19-2025 End: 04-19-2025 ambulatory [facility] Ambulatory Start: 01-30-2025 End: 01-30-2025 ambulatory [facility] Ambulatory Start: 01-30-2025 End: 01-30-2025 Office outpatient visit 25 minutes Broderick Garcia MD Work Phone: [facility] Comment on above: Hx of CABG (Primary Dx); Irregular heart beat; 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 Zahra Sanchez MD Work Phone: [facility] Work Phone: Start: 01-15-2025 End: 01-15-[address] Gerson Solomon DO -[facility] Work Phone: Start: 10-17-2024 End: 10-17-2024 Assay of hemosiderin, quant Zahra Sanchez MD Work Phone: [facility] Work Phone: Start: 10-17-2024 End: 10-17-2024 Patient encounter procedure Zahra Sanchez MD Work Phone: [facility] Comment on above: Routine general medi hung examination at [facility] care facility (Primary Dx); Stage 3a chronic kidney disease (Multi); Type 2 diabetes mellitus with other circulatory complication, without long-term current use of insulin; Atherosclerosis of [place] coronary artery of [place] heart, unspecified whether angina present; Hyperlipidemia, unspecified hyperlipidemia type; Hypothyroidism, unspecified type; HTN (hypertension), benign Start: 10-17-2024 End: 10-17-2024 ambulatory [facility] Ambulatory Start: 10-17-2024 End: 10-17-2024 Encounter for general adult medical examination without abnormal findings 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; Hypothyroidism, unspecified type; Atherosclerosis; Shortness of breath on exertion; Coronary angioplasty status Start: 08-01-2024 End: 08-01-2024 ambulatory BRODERICK RUGGIERO M[facility] Ambulatory Start: 05-03-2024 End: 05-03-2024 Office outpatient visit 25 minutes Zahra Sanchez MD Work Phone: [facility] Comment on above: Type 2 diabetes anuja itus with other circulatory complication, without long-term current use of insulin (Multi) (Primary Dx); S/P CABG x 4; Hypothyroidism, unspecified type; Hyperlipidemia, unspecified hyperlipidemia type; HTN (hypertension), benign; Stage 3a chronic kidney disease (Multi); Benign prostatic hyperplasia, unspecified whether lower urinary tract symptoms present Start: 04-28-2024 End: 04-28-2024 ambulatory ZAHRA A [facility] Start: 02-28-2024 End: 02-28-2024 ambulatory [facility] Start: 02-25-2024 End: 02-25-2024 ambulatory [facility] Start: 02-23-2024 End: 02-23-2024 ambulatory [facility] Start: 02-21-2024 End: 02-21-2024 ambulatory [facility] Start: 02-18-2024 End: 02-18-2024 ambulatory [facility] Start: 02-16-2024 End: 02-16-2024 ambulatory [facility] Start: 02-14-2024 End: 02-14-2024 ambulatory [facility] Start: 02-11-2024 End: 02-11-2024 ambulatory [facility] Start: 02-09-2024 End: 02-09-2024 ambulatory [facility] Start: 02-07-2024 End: 02-07-2024 ambulatory [facility] Start: 02-04-2024 End: 02-04-2024 ambulatory [facility] Start: 02-02-2024 End: 02-02-2024 ambulatory [facility] Start: 02-01-2024 End: 02-01-2024 Office outpatient visit 25 minutes Broderick Garcia MD Work Phone: [facility] Comment on above: Hx of CABG (Primary Dx); Hypothyroidism, unspecified type; 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 ([facility]-H[facility]) Start: 01-31-2024 End: 01-31-2024 ambulatory BRODERICK [facility] Start: 01-28-2024 End: 01-28-2024 ambulatory BRODERICK [facility] Start: 01-26-2024 End: 01-26-2024 ambulatory BRODERICK [facility] Start: 01-24-2024 End: 01-24-2024 ambulatory BRODERICK [facility] Start: 01-21-2024 End: 01-21-2024 ambulatory BRODERICK [facility] Start: 01-19-2024 End: 01-19-2024 ambulatory BRODERICK [facility] Start: 01-17-2024 End: 01-17-2024 ambulatory BRODERICK [facility] Start: 01-14-2024 End: 01-14-2024 ambulatory BRODERICK [facility] Start: 01-12-2024 End: 01-12-2024 ambulatory BRODERICK [facility] Start: 01-07-2024 End: 01-07-2024 ambulatory BRODERICK [facility] Start: 01-05-2024 End: 01-05-2024 ambulatory BRODERICK [facility] Start: 01-03-2024 End: 01-03-2024 ambulatory BRODERICK [facility] Start: 12-31-2023 End: 12-31-2023 ambulatory BRODERICK [facility] Start: 12-29-2023 End: 12-29-2023 ambulatory BRODERICK [facility] Start: 12-27-2023 End: 12-27-2023 ambulatory BRODERICK [facility] Start: 12-24-2023 End: 12-24-2023 ambulatory [facility] Start: 12-22-2023 End: 12-22-2023 ambulatory [facility] Start: 12-20-2023 End: 12-20-2023 [facility] Start: 12-17-2023 End: 12-17-2023 [facility] Start: 12-15-2023 End: 12-15-2023 ambulatory [facility] Start: 12-13-2023 End: 12-13-2023 [facility] Start: 12-10-2023 End: 12-10-2023 [facility] Start: 12-08-2023 End: 12-08-2023 [facility] Start: 12-06-2023 End: 12-06-2023 [facility] Start: 11-29-2023 End: 11-29-2023 [facility] Start: 11-09-2023 End: 11-09-2023 Postop follow up visit related to original px Mary Garcia [employer] Work Phone: [facility] 2 Comment on above: Coronary artery dise ase of [place] artery of [place] heart with stable angina pectoris (CMS/HCC) (Primary Dx); S/P CABG x 3; Primary insomnia Start: 11-09-2023 End: 11-09-2023 ambulatory MARY GARCIA [facility] Start: 11-09-2023 End: 11-09-2023 Subsequent hospital visit by physician Par X-Ray 6 [facility] Comment on above: S/P CABG x 3 Start: 11-09-2023 End: 11-09-2023 ambulatory Kaylee Estrada [facility] Start: 11-05-2023 End: 11-05-2023 Assay of hemosiderin, quant Zahra Sanchez MD Work Phone: [facility] Work Phone: Start: 11-05-2023 End: 11-05-2023 Patient encounter procedure Zahra Sanchez MD Work Phone: [facility] Comment on above: Type 2 diabetes anuja itus with other circulatory complication, without long-term current use of insulin (CMS/[facility]) (Primary Dx); CAD S/P percutaneous coronary angioplasty; HTN (hypertension), benign; Hyperlipidemia, unspecified hyperlipidemia type; Hypothyroidism, unspecified type; Stage 3 chronic kidney disease, unspecified whether stage 3a or 3b CKD (CMS/HCC); Routine general medical examination at health care facility Start: 10-07-2023 End: 10-07-2023 ambulatory [facility] Dom[facility] Start: 09-30-2023 End: 09-30-2023 [facility] Start: 09-24-2023 End: 09-24-2023 ambulatory [facility] Start: 09-23-2023 End: 09-23-2023 Transitional care manage srvc 7 day discharge Zahra Sanchez MD Work Phone: [facility] [employer] [facility] Comment on above: Coronary artery dise ase involving autologous artery coronary bypass graft with angina pectoris with documented spasm ([facility]) (Primary Dx); HTN (hypertension), benign; Hyperlipidemia, unspecified hyperlipidemia type; Hypothyroidism, unspecified type; Type 2 diabetes mellitus with other circulatory complication, without long-term current use of insulin (CMS/HCC); Stage 3 chronic kidney disease, unspecified whether stage 3a or 3b CKD (CMS/HCC) Start: 09-20-2023 End: 10-13-[address] [facility] Start: 09-20-2023 End: 09-20-2023 Emergency department patient visit ZAHRA SANCHEZ [facility] Start: 09-15-2023 End: 09-21-2023 ambulatory [facility] Start: 09-15-2023 End: 09-15-2023 Subsequent hospital visit by physician Maximino [facility] Comment on above: ACS (acute coronary syndrome) (CMS/HCC) Start: 09-15-2023 End: 09-16-2023 Evaluation and management of inpatient [facility] Comment on above: Arrived Start: 09-13-2023 End: 09-13-2023 Subsequent hospital visit by physician Paresh Or [facility] [place] Comment on above: Arrived Start: 09-13-2023 End: 09-13-2023 ambulatory DARIUS GALEAS [facility] Start: 09-13-2023 End: 09-18-2023 Evaluation and management of inpatient Jose Carlos Malagon MD Work Phone: [facility] Card[facility] Start: 09-10-2023 End: 09-10-2023 ambulatory ZAHRA SANCHEZ [facility] Start: 09-10-2023 End: 09-10-2023 Preprocedural examination done Par Room [facility] Work Phone: Start: 09-10-2023 End: 09-10-2023 Subsequent hospital visit by physician Paresh Respther1 [facility] Comment on above: Coronary artery dise ase involving [place] coronary artery of [place] heart with other form of angina pectoris (CMS/HCC); Preop examination Coronary artery dise ase of [place] artery of [place] heart with stable angina pectoris (CMS/HCC); Pre-op examination Start: 09-10-2023 End: 09-10-2023 ambulatory MARY GARCIA [facility] Start: 09-10-2023 End: 09-10-2023 Patient encounter status [facility] Start: 09-10-2023 End: 09-10-2023 Preprocedural examination done [facility] Work Phone: Start: 09-10-2023 End: 09-10-2023 Subsequent hospital visit by physician Maximino [facility] 2 [facility] Comment on above: Coronary artery dise ase of [place] artery of [place] heart with stable angina pectoris (CMS/HCC); Pre-op examination; Encounter for preprocedural cardiovascular examination Coronary artery dise ase of [place] artery of [place] heart with stable angina pectoris (CMS/HCC); Pre-op examination Coronary artery dise ase of [place] artery of [place] heart with stable angina pectoris (CMS/HCC); Pre-op examination; Encounter for follow-up examination after completed treatment for conditions other than malignant neoplasm; Encounter for preprocedural cardiovascular examination Start: 09-10-2023 End: 09-10-2023 ambulatory [facility] Start: 09-10-2023 End: 09-10-2023 Encounter for other preprocedural examination [facility] Start: 09-10-2023 End: 09-10-2023 Encounter for preprocedural cardiovascular examination [facility] Start: 08-24-2023 End: 08-24-2023 Office outpatient visit 40 minutes Jose Carlos Malagon MD Work Phone: [facility] 2 Comment on above: Coronary artery dise ase of [place] artery of [place] heart with stable angina pectoris (CMS/HCC) (Primary Dx) Start: 08-24-2023 End: 08-24-2023 ambulatory JOSE CARLOS Estrada [facility] Start: 08-04-2023 End: 08-04-2023 Office outpatient new 30 minutes Zahra Sanchez MD Work Phone: [facility] Comment on above: Type 2 diabetes anuja itus with other circulatory complication, without long-term current use of insulin (CMS/HCC) (Primary Dx); CAD S/P percutaneous coronary angioplasty; HTN (hypertension), benign; Hyperlipidemia, unspecified hyperlipidemia type; Hypothyroidism, unspecified type; Stage 3 chronic kidney disease, unspecified whether stage 3a or 3b CKD (CMS/HCC); Ischemic cardiomyopathy; Type 2 diabetes mellitus with other circulatory complication, without long-term current use of insulin (CMS/HCC) Start: 08-03-2023 End: 08-03-2023 Office outpatient visit 40 minutes Broderick Garcai MD Work Phone: [facility] Comment on above: Atherosclerosis (Teresa rian Dx); Coronary artery disease involving [place] coronary artery of [place] heart with unstable angina pectoris ([facility]) Start: 07-29-2023 End: 07-29-2023 ambulatory [facility] Start: 07-19-2023 End: 07-19-2023 ambulatory CHRISTINA MAYA [facility] Start: 06-21-2023 End: 06-21-2023 Subsequent hospital visit by physician Brnenan Kimball 1 [facility] Comment on above: Chronic ischemic hea rt disease; Shortness of breath on exertion Start: 06-21-2023 End: 06-21-2023 [facility] Start: 06-07-2023 End: 06-07-2023 Office outpatient visit 40 minutes Broderick Garcia MD Work Phone: [facility] Comment on above: Chronic ischemic hea rt disease (Primary Dx); Shortness of breath on exertion Start: 05-31-2023 End: 05-31-2023 ambulatory [facility] Start: 05-31-2023 End: 05-31-2023 Subsequent hospital visit by physician Brennan Heath 1 [facility] Comment on above: Atherosclerotic hear t disease of [place] coronary artery without angina pectoris; Coronary angioplasty status Start: 05-06-2023 Office outpatient ne w 60 minutes Christina Maya Work Phone: [employer] Work Phone: Start: 05-06-2023 ambulatory [facility] JOSE Facil [id number] Start: 2022 AUDIT Christina mares Work Phone: [employer] Work Phone: Start: 11-30-2021 End: 11-30-2021 Emergency department patient visit ERIC KENNEDY [facility] Start: 09-25-2021 Office outpatient vi sit 25 minutes Christina Maya Work Phone: [facility]tr[facility] [address] Work Phone: Start: 07-02-2021 Rx Renewal Christina mares Work Phone: [place] [address] [address] Work Phone: Start: 03-11-2021 End: 03-11-2021 ambulatory HAMLET CARBAJAL [facility] Start: 03-11-2021 End: 03-11-2021 Office outpatient new 30 minutes Hamlet Carbajal MD Work Phone: [facility] Comment on above: Adenomatous polyp of colon, unspecified part of colon (Primary Dx); Anemia, unspecified type; Gastroesophageal reflux disease, unspecified whether esophagitis present Start: 03-11-2021 End: 03-11-2021 Admission to same day surgery center José Manuel Naylor MD Work Phone: [facility] Comment on above: Anemia, unspecified type (Primary Dx); Adenomatous polyp of colon, unspecified part of colon; Gastroesophageal reflux disease, unspecified whether esophagitis present Start: 02-07-2021 End: 02-07-2021 Transcribe Orders Norma Richey MA [facility] Comment on above: Anemia, unspecified type (Primary Dx) Start: 02-09-2020 Patient encounter procedure Casiejackelyn José Miguel [id number] [employer] Work Phone: Start: 02-02-2020 Patient encounter procedure Jenni [facility]do[facility]ez[facility] Work Phone: Start: 01-31-2020 Patient encounter procedure Jenni [facility] Work Phone: Start: 01-26-2020 Patient encounter procedure Jenni [facility] Work Phone: Start: 01-22-2020 Patient encounter procedure Jenni [facility] Work Phone: Start: 01-19-2020 [facility] Start: 01-12-2020 [facility] Start: 01-10-2020 [facility]: Start: 01-05-2020 [facility]: Start: 01-01-2020 [facility]: Start: 12-29-2019 Patient encounter procedure Jenni Alfonso [facility] Work Phone: Start: 12-25-2019 Patient encounter procedure Jenni Alfonso [facility] Work Phone: Start: 12-22-2019 Patient encounter procedure Jenni Alfonso [facility] Work Phone: Start: 12-18-2019 [facility] Work Phone: Start: 12-15-2019 Patient encounter procedure Jenni Alfonso [facility] Work Phone: Start: 12-11-2019 Patient encounter procedure Jenni Alfonso [facility] [place] [address] [address] Work Phone: Start: 07-10-2019 Patient encounter procedure Jenni Alfonso [facility] Work Phone: Start: 06-27-2019 Patient encounter procedure Jenni Aflonso [facility] Work Phone: Start: 05-24-2019 End: 05-24-2019 Ancillary Orders Kristin Carrillo Work Phone: [facility] Comment on above: Pain Arrived Start: 02-03-2019 Patient encounter procedure Jenni Alfonso [facility] Work Phone: Start: 01-10-2019 End: 01-10-2019 Patient encounter procedure Hamlet G Carbajal Work Phone: [facility] CT Scan Comment on above: [place] lesion Start: 08-02-2018 Patient encounter [facility] Work Phone: Start: 05-05-2018 End: 05-05-2018 Office outpatient visit 15 minutes Eric Rios Work Phone: [employer] [place] [facility] Comment on above: Coronary artery dise ase involving [place] coronary artery, angina presence unspecified, unspecified whether [place] or transplanted heart (Primary Dx); Essential hypertension Start: 02-24-2018 Patient encounter Yadira Zaman Work Phone: [employer] [facility] Start: 02-23-2018 End: 02-23-2018 Office outpatient visit 15 minutes Yadira Zaman Work Phone: [employer] [facility] Start: 01-31-2018 End: 02-01-2018 Ambulatory Eric Rios Work Phone: [facility] Start: 01-27-2018 Ambulatory Yadira Fariba Zaman Faci lity:[place] Start: 01-27-2018 End: 01-27-2018 Ambulatory Yadira Fariba Arceosilvina Work Phone: [facility] Start: 01-27-2018 End: 01-27-2018 Office outpatient visit 25 minutes Yadira Fariba Arceosilvina [facility] Start: 01-19-2018 Ambulatory Hamlet G Carbajal Faci lity:[place] Start: 01-19-2018 End: 01-19-2018 Ambulatory Hamlet G Carbajal Work Phone: [facility] Patient encounter status Christina Maya Work Phone: [id number] Work Phone: Procedures Date Procedure Procedure Detail Performing Clinician Start: 01-30-2025 Ecg routine ecg w/least 12 lds w/i&r Broderick Garcia MD Work Phone: Start: 10-13-2024 Lipid 1996 panel - Serum or Plasma Zahra Sanchez MD Work Phone: Start: 10-13-2024 Thyrotropin [Units/volume] in Serum or Plasma Zahra Sanchez MD Work Phone: Start: 04-28-2024 Lipid 1996 panel - Serum or Plasma Zahra Sanchez MD Work Phone: Start: 04-28-2024 Thyrotropin [Units/volume] in Serum or Plasma Zahra Sanchez MD Work Phone: Start: 11-29-2023 AMB REFERRAL TO CARDIAC REHAB BRODERICK GARCIA Start: 11-09-2023 XR CHEST 2 VIEWS ZAHRA CONTRERASHAI Start: 09-21-2023 ECG 12-LEAD ZAHRA INGRAMSIVAN Start: 09-21-2023 Ecg routine ecg w/least 12 lds trcg only w/o i&r Mary Garcia [employer] Work Phone: Start: 09-18-2023 DISCHARGE PATIENT ZAHRA SANCHEZ Start: 09-18-2023 DISCHARGE ACTIVITY ZAHRA SANCHEZ Start: 09-18-2023 DISCHARGE INSTRUCTIONS ZAHRA OLIVEIRA RF Start: 09-18-2023 NOTIFY PROVIDER (DO NOT PROMPT FOR PARAMETERS) ZAHRA SANCHEZ Start: 09-18-2023 WOUND CARE ZAHRA SANCHEZ Start: 09-18-2023 Glucose [Mass/volume] in Serum or Plasma ZAHRA SANCHEZ Start: 09-18-2023 Glucose quantitative blood xcpt reagent strip Jose Carlos Malagon MD Work Phone: Start: 09-18-2023 Glucose [Mass/volume] in Serum or Plasma ZAHRA CONTRERASHAI Start: 09-18-2023 XR CHEST 1 VIEW ZAHRASOCO INGRAMSIVAN Start: 09-18-2023 Glucose quantitative blood xcpt reagent strip Jose Carlos Malagon MD Work Phone: Start: 09-18-2023 CBC panel - Blood by Automated count ZAHRA CONTRERASHAI Start: 09-18-2023 Magnesium [Mass/volume] in Serum or Plasma ZAHRA INGRAMSIVAN Start: 09-18-2023 RENAL FUNCTION PANEL ZAHRA INGRAMSIVAN Start: 09-18-2023 Renal function panel Sal Fung MD Work Phone: Start: 09-18-2023 POCT GLUCOSE METER ZAHRA LONGHAI Start: 09-17-2023 Glucose [Mass/volume] in Serum or Plasma ZAHRASOCO CONTRERASHAI Start: 09-17-2023 Glucose quantitative blood xcpt reagent strip Jose Carlos Malagon MD Work Phone: Start: 09-17-2023 Glucose [Mass/volume] in Serum or Plasma ZAHRA SANCHEZ Start: 09-17-2023 Glucose quantitative blood xcpt reagent strip Jose Carlos Malagon MD Work Phone: Start: 09-17-2023 Glucose [Mass/volume] in Serum or Plasma ZAHRA DANIEL Start: 09-17-2023 Glucose quantitative blood xcpt reagent strip Jose Carlos Malagon MD Work Phone: Start: 09-17-2023 XR CHEST 1 VIEW ZAHRA LONGHIA Start: 09-17-2023 CBC panel - Blood by Automated count ZAHRA LONGHAI Start: 09-17-2023 Magnesium [Mass/volume] in Serum or Plasma ZAHRA INGRAMSIVAN Start: 09-17-2023 RENAL FUNCTION PANEL ZAHRA INGRAMSIVAN Start: 09-17-2023 Radiologic exam chest single view Mary Garcia HAND [employer]ING [employer] Work Phone: Start: 09-17-2023 Renal function panel Mary Garcia HAND TACKER [employer]ING [employer]AD Work Phone: Start: 09-17-2023 POCT GLUCOSE METER ZAHRA DIANEHAI Start: 09-16-2023 Glucose [Mass/volume] in Serum or Plasma ZAHRA SANCHEZ Start: 09-16-2023 Glucose quantitative blood xcpt reagent strip Jose Carlos Malagon MD Work Phone: Start: 09-16-2023 RESPIRATORY CARE EVALUATION ONLY BRANDY SANCHEZ Start: 09-16-2023 RESPIRATORY CARE EVALUATION ONLY Jose Carlos perez MD Work Phone: Start: 09-16-2023 Glucose [Mass/volume] in Serum or Plasma ZAHRA SANCHEZ Start: 09-16-2023 TELEMETRY MONITORING ZAHRA SANCHEZ Start: 09-16-2023 Glucose quantitative blood xcpt reagent strip Jose Carlos Malagon MD Work Phone: Start: 09-16-2023 Glucose [Mass/volume] in Serum or Plasma ZAHRA SANCHEZ Start: 09-16-2023 XR CHEST 1 VIEW ZAHRA SANCHEZ Start: 09-16-2023 Glucose quantitative blood xcpt reagent strip Jose Carlos Malagon MD Work Phone: Start: 09-16-2023 Glucose [Mass/volume] in Serum or Plasma ZAHRA SANCHEZ Start: 09-16-2023 CBC W Auto Differential panel - Blood ZAHRA SANCHEZ Start: 09-16-2023 Magnesium [Mass/volume] in Serum or Plasma ZAHRA SANCHEZ Start: 09-16-2023 RENAL FUNCTION PANEL ZAHRA SANCHEZ Start: 09-16-2023 Radiologic exam chest single view Mary Garcia HAND TACKER[employer]ING [employer] Work Phone: Start: 09-16-2023 End: 09-16-2023 Renal function panel Mary Garcia HAND TACKER [employer]ING [employer] Work Phone: Start: 09-16-2023 POCT GLUCOSE METER ZAHRA SANCHEZ Start: 09-16-2023 Glucose [Mass/volume] in Serum or Plasma ZAHRA SANCHEZ Start: 09-16-2023 Glucose quantitative blood xcpt reagent strip Jose Carlos Malagon MD Work Phone: Start: 09-15-2023 Glucose [Mass/volume] in Serum or Plasma ZAHRA SANCHEZ Start: 09-15-2023 Glucose quantitative blood xcpt reagent strip Jose Carlos Malagon MD Work Phone: Start: 09-15-2023 Glucose [Mass/volume] in Serum or Plasma ZAHRA SANCHEZ Start: 09-15-2023 Glucose quantitative blood xcpt reagent strip Jose Carlos Malagon MD Work Phone: Start: 09-15-2023 Glucose [Mass/volume] in Serum or Plasma ZAHRA SANCHEZ Start: 09-15-2023 Glucose quantitative blood xcpt reagent strip Jose Carlos Malagon MD Work Phone: Start: 09-15-2023 Glucose [Mass/volume] in Serum or Plasma ZAHRA SANCHEZ Start: 09-15-2023 Glucose quantitative blood xcpt reagent strip Jose Carlos Malagon MD Work Phone: Start: 09-15-2023 XR CHEST 1 VIEW ZAHRA SANCHEZ Start: 09-15-2023 Glucose [Mass/volume] in Serum or Plasma ZAHRA SANCHEZ Start: 09-15-2023 CBC panel - Blood by Automated count ZAHRA SANCHEZ Start: 09-15-2023 Magnesium [Mass/volume] in Serum or Plasma ZAHRA SANCHEZ Start: 09-15-2023 RENAL FUNCTION PANEL ZAHRA SANCHEZ Start: 09-15-2023 Radiologic exam chest single view Mary Garcia HAND [employer] Work Phone: Start: 09-15-2023 End: 09-15-2023 Renal function panel Mary Garcia HAND T[employer]ING [employer] Work Phone: Start: 09-15-2023 Glucose [Mass/volume] in Serum or Plasma ZAHAR SANCHEZ Start: 09-15-2023 POCT GLUCOSE METER ZAHRA SANCHEZ Start: 09-15-2023 Glucose quantitative blood xcpt reagent strip Jose Carlos Malagon MD Work Phone: Start: 2023 Glucose [Mass/volume] in Serum or Plasma ZAHRA INGRAMSIVAN Start: 2023 TRANSFER PATIENT TO [facility] ZAHRA PEARCE Start: 2023 Glucose quantitative blood xcpt reagent strip Jose Carlos Malagon MD Work Phone: Start: 2023 Glucose [Mass/volume] in Serum or Plasma ZAHRA SANCHEZ Start: 2023 Glucose quantitative blood xcpt reagent strip Jose Carlos Malagon MD Work Phone: Start: 2023 IP CONSULT TO NUTRITION SERVICES BRANDY SANCHEZ Start: 2023 Glucose [Mass/volume] in Serum or Plasma ZAHRA SANCHEZ Start: 2023 ECG 12-LEAD ZAHRA SANCHEZ Start: 2023 Glucose quantitative blood xcpt reagent strip Jose Carlos Malagon MD Work Phone: Start: 2023 Ecg routine ecg w/least 12 lds trcg only w/o i&r Mary Garcia HAND [employer] Work Phone: Start: 2023 Glucose [Mass/volume] in Serum or Plasma ZAHRA SANCHEZ Start: 2023 XR CHEST 1 VIEW ZAHRA SANCHEZ Start: 2023 EXTRA TUBES ZAHRA SANCHEZ Start: 2023 GREEN TOP ZAHRA SANCHEZ Start: 2023 Glucose quantitative blood xcpt reagent strip Jose Carlos Malagon MD Work Phone: Start: 2023 Radiologic exam chest single view Mary Garcia HAND T[employer]ER[employer]ING [employer] Work Phone: Start: 2023 EXTRA TUBES Jose Carlos Malagon MD Work Phone: Start: 2023 GREEN TOP Jose Carlos Malagon MD Work Phone: Start: 2023 BLOOD GAS ARTERIAL FULL PANEL ZAHRA SANCHEZ Start: 2023 Glucose [Mass/volume] in Serum or Plasma ZAHRA SANCHEZ Start: 2023 CALCIUM, IONIZED ZAHRA SANCHEZ Start: 2023 CBC panel - Blood by Automated count ZAHRA SANCHEZ Start: 2023 Magnesium [Mass/volume] in Serum or Plasma ZAHRA SANCHEZ Start: 2023 RENAL FUNCTION PANEL ZAHRA SANCHEZ Start: 2023 End: 2023 Renal function panel Mary Garcia HAND T[employer]ER [employer]ING [employer] Work Phone: Start: 2023 Glucose [Mass/volume] in Serum or Plasma ZAHRA SANCHEZ Start: 2023 POCT GLUCOSE METER ZAHRA SANCHEZ Start: 2023 Glucose quantitative blood xcpt reagent strip Jose Carlos Malagon MD Work Phone: Start: 09-13-2023 Glucose [Mass/volume] in Serum or Plasma ZAHRA SANCHEZ Start: 09-13-2023 Glucose quantitative blood xcpt reagent strip Jose Carlos Malagon MD Work Phone: Start: 09-13-2023 EXTUBATION ZAHRA SANCHEZ Start: 09-13-2023 Glucose [Mass/volume] in Serum or Plasma ZAHRA SANCHEZ Start: 09-13-2023 BLOOD GAS ARTERIAL FULL PANEL ZAHRA SANCHEZ Start: 09-13-2023 EXTUBATION Jose Carlos Malagon MD Work Phone: Start: 09-13-2023 End: 09-13-2023 Chloride bld Mary Garcia [employer]ING [employer] Work Phone: Start: 09-13-2023 XR CHEST 1 VIEW ZAHRA SANCHEZ Start: 09-13-2023 BLOOD GAS ARTERIAL FULL PANEL ZAHRA SANCHEZ Start: 09-13-2023 CALCIUM, IONIZED ZAHRA SANCHEZ Start: 09-13-2023 CBC panel - Blood by Automated count ZAHRA SANCHEZ Start: 09-13-2023 COAGULATION SCREEN ZAHRA SANCHEZ Start: 09-13-2023 FIBRINOGEN ZAHRA SANCHEZ Start: 09-13-2023 Glucose [Mass/volume] in Serum or Plasma ZAHRA SANCHEZ Start: 09-13-2023 Magnesium [Mass/volume] in Serum or Plasma ZAHRA SANCHEZ Start: 09-13-2023 RENAL FUNCTION PANEL ZAHRA SANCHEZ Start: 09-13-2023 POCT GLUCOSE METER ZAHRA SANCHEZ Start: 09-13-2023 IP CONSULT TO RESPIRATORY CARE ZAHRA SANCHEZ Start: 09-13-2023 PULSE OXIMETRY, CONTINUOUS ZAHRA RAMIREZ GSDORF Start: 09-13-2023 BLOOD GAS ARTERIAL FULL PANEL UNSOLICITED ZAHRA SANCHEZ Start: 09-13-2023 COOX PANEL, ARTERIAL UNSOLICITED BRANDY SANCHEZ Start: 09-13-2023 Radiologic exam chest single view Mary Garcia HAND TACKER[employer]ING [employer]AD Work Phone: Start: 09-13-2023 POSTPROCEDURE LEVEL OF CARE CHANGE ZAHRA SANCHEZ Start: 09-13-2023 aPTT in Blood by Coagulation assay ZAHRA SANCHEZ Start: 09-13-2023 FIBRINOGEN ZAHRA SANCHEZ Start: 09-13-2023 Magnesium [Mass/volume] in Serum or Plasma ZAHRA SANCHEZ Start: 09-13-2023 Platelets [#/volume] in Blood ZAHRA SANCHEZ Start: 09-13-2023 PROTIME-INR ZAHRA SANCHEZ Start: 09-13-2023 End: 09-13-2023 Chloride bld Mary Garcia [employer] T[employer]ING [employer] Work Phone: Start: 09-13-2023 PULSE OXIMETRY, CONTINUOUS Mary acevedo HAND TACKER[employer]DISPENSING LEAD Work Phone: Start: 09-13-2023 BLOOD GAS ARTERIAL FULL PANEL UNSOLICITED ZAHRA SANCHEZ Start: 09-13-2023 COOX PANEL, ARTERIAL UNSOLICITED BRANDY SANCHEZ Start: 09-13-2023 End: 09-13-2023 Assay of magnesium Jose Carlos Malagon MD Work Phone: Start: 09-13-2023 BLOOD GAS ARTERIAL FULL PANEL UNSOLICITED ZAHRA SANCHEZ Start: 09-13-2023 COOX PANEL, ARTERIAL UNSOLICITED BRANDY SANCHEZ Start: 09-13-2023 BLOOD GAS ARTERIAL FULL PANEL UNSOLICITED ZAHRA SANCHEZ Start: 09-13-2023 COOX PANEL, ARTERIAL UNSOLICITED BRANDY SANCHEZ Start: 09-13-2023 ADMIT TO INPATIENT ZAHRA SANCHEZ Start: 09-13-2023 End: 09-13-2023 Chloride bld Jose Carlos Malagon MD Work Phone: Start: 09-13-2023 PREPARE RBC ZAHRA SANCHEZ Start: 09-13-2023 ANESTHESIA INTRAOPERATIVE MICHAEL ZAHRA DANIEL Start: 09-13-2023 Calcium ionized Jose Carlos Malagon MD Work Phone: Start: 09-13-2023 End: 09-13-2023 Coronary artery byp w/vein & artery graft 2 vein Jose Carlos Malagon MD Work Phone: Start: 09-13-2023 PREPARE RBC Mary R Patchen HAND TACKER[employer]ING [employer]AD Work Phone: Start: 09-13-2023 ANESTHESIA INTRAOPERATIVE MICHAEL Darius Galeas MD Work Phone: Start: 09-10-2023 CBC panel - Blood by Automated count ZAHRA SANCHEZ Start: 09-10-2023 COAGULATION SCREEN ZAHRA SANCHEZ Start: 09-10-2023 Comprehensive metabolic 2000 panel - Serum or Plasma ZAHRA SANCHEZ Start: 09-10-2023 FIBRINOGEN ZAHRA SANCHEZ Start: 09-10-2023 Hemoglobin A1c/Hemoglobin.total in Blood ZAHRA SANCHEZ Start: 09-10-2023 MICROSCOPIC ONLY, URINE ZAHRA FINNEGAN Start: 09-10-2023 TYPE AND SCREEN ZAHRA SANCHEZ Start: 09-10-2023 URINALYSIS WITH REFLEX MICROSCOPIC ZAHRA SANCHEZ Start: 09-10-2023 VERAB/VERIFY ABORH ZAHRA SANCHEZ Start: 09-10-2023 STAPHYLOCOCCUS AUREUS/MRSA COLONIZATION, CULTURE ZAHRA SANCHEZ Start: 09-10-2023 BLOOD GAS ARTERIAL ZAHRA SANCHEZ Start: 09-10-2023 SPIROMETRY PRE/POST BRONCHODILATOR ZAHRA SANCHEZ Start: 09-10-2023 BLOOD GAS ARTERIAL, COOX ZAHRA AVITIA Start: 09-10-2023 ARTERIAL BLOOD GAS (ABG) ZAHRA AVITIA Start: 09-10-2023 VASC US LOWER EXTREMITY VEIN MAPPING BILATERAL ZAHRA SANCHEZ Start: 09-10-2023 VASC US CAROTID ARTERY DUPLEX BILATERAL ZAHRA SANCHEZ Start: 09-10-2023 CT CHEST WO IV CONTRAST ZAHRA INGRAM ORF Start: 09-10-2023 Brncdilat rspse spmtry pre&post-brncdilat admn Mary Garcia HAND [employer]ING [employer] Work Phone: Start: 09-10-2023 Carboxyhemoglobin quantitative Interface Unspecifiedprovider Work Phone: Start: 09-10-2023 ARTERIAL BLOOD GAS (ABG) Mary Garcia HAND T[employer]ER[employer]ING LEAD Work Phone: Start: 09-10-2023 Dup-scan xtr veins complete bilateral study Mary Campbell Ashley HAND TACKER[employer]PENSING LEAD Work Phone: Start: 09-10-2023 Duplex scan extracranial art compl bi study Mary Garcia HAND TACKER[employer]DISPENSING LEAD Work Phone: Start: 09-10-2023 Thyrotropin [Units/volume] in Serum or Plasma Par Room Start: 08-24-2023 CASE REQUEST OPERATING ROOM ZAHRA WHEELER NGSDORF Start: 07-29-2023 ECG 12-LEAD BRODERICK GARCIA Start: 07-29-2023 DISCHARGE PATIENT BRODERICK GARCIA Start: 07-29-2023 TELEMETRY MONITORING BRODERICK GARCIA Start: 07-29-2023 CARDIAC CATHETERIZATION - CORONARY BRODERICK GARCIA Start: 07-29-2023 FULL CODE BRODERICK MOTT JOSE Start: 07-29-2023 PLACE IN OUTPATIENT/HOSPITAL AMBULATORY SURGERY BRODERICK GARCIA Start: 07-19-2023 Basic metabolic 2000 panel - Serum or Plasma MARY GARCIA Start: 07-19-2023 CBC W Auto Differential panel - Blood MARY GARCIA Start: 06-21-2023 TRANSTHORACIC ECHO (TTE) COMPLETE BRODERICK GARCIA Start: 06-21-2023 Echo tthrc r-t 2d w/wom-mode compl spec&colr d Broderick Garcia MD Work Phone: Start: 05-31-2023 NUCLEAR STRESS TEST BRODERICK GARCIA Start: 05-31-2023 CARDIOLOGY INTERPRETATION OF NUCLEAR STRESS BRODERICK GARCIA Start: 05-31-2023 Myocardial spect multiple studies Broderick Garcia MD Work Phone: Start: 05-31-2023 Cv strs tst xers&/or rx cont ecg w/o i&r Broderick Garcia MD Work Phone: Start: 07-14-2021 Follow-up visit Start: 03-11-2021 Torsten Malagon MD Work Phone: Start: 05-24-2019 ORDERS (SCAN) Kristin Carrillo Work Phone: Start: 03-03-2019 Epidural steroid injection Christina ordoñez Work Phone: Comment on above: L4-5; Start: 11-18-2018 Injection of steroid into joint Christina Maya Work Phone: Comment on above: R SIJ; Start: 04-08-2018 Injection of steroid into joint Christina Maya Work Phone: Comment on above: R SIJ; Start: 01-31-2018 End: 01-31-2018 Cath, translumin non-laser Yadira brock Work Phone: Start: 01-31-2018 End: 01-31-2018 INTERVENTION PERFORMED Yadira acevedo Work Phone: Start: 01-31-2018 Cardiac catheterization Christina Maya Work Phone: Comment on above: With stent placed; Start: 11-02-2017 Epidural steroid injection Christina ordoñez Work Phone: Comment on above: L4-5; Start: 07-30-2017 Epidural steroid injection Christina ordoñez Work Phone: Comment on above: R L4 TFESI; Start: 04-16-2017 Epidural steroid injection Christina Zaidi ak Work Phone: Comment on above: L4-5; Start: 01-08-2017 Epidural steroid injection Christina Zaidi ak Work Phone: Comment on above: L4-5; Start: 09-18-2016 Epidural steroid injection Christina Zaidi ak Work Phone: Comment on above: L4-5; Biopsy of thyroid Jenni jones End: 01-31-2018 Cardiac catheterization Jenni Naty Colonoscopy Jenni Naty End: 03-03-2019 Epidural steroid injection Jenni Naty End: 11-02-2017 Epidural steroid injection Jenni Naty End: 04-16-2017 Epidural steroid injection Jenni Naty End: 01-08-2017 Epidural steroid injection Jenni Naty End: 09-18-2016 Epidural steroid injection Jenni Naty End: 07-30-2017 Epidural steroid injection Jenni Naty Esophagogastroduodenoscopy J essdipesh Alfonso History of coronary artery bypass grafting S/P CABG x 4 Jose Carlos Malagon MD Work Phone: History of coronary artery bypass grafting S/P CABG x 3 Mary Garcia HAND T[employer]ER[employer]ING [employer]AD Work Phone: History of coronary artery bypass grafting Hx of CABG Broderick Garcia MD Work Phone: History of coronary artery bypass grafting Hx of CABG Broderick Garcia MD Work Phone: History of coronary artery bypass grafting S/P CABG x 4 Zahra Sanchez MD Work Phone: History of coronary artery bypass grafting Hx of CABG Broderick Garcia MD Work Phone: End: 11-18-2018 Injection of steroid into joint Jenni Naty End: 04-08-2018 Injection of steroid into joint Jenni Naty Kidney operation Jenni kaiser Comment on above: Kidney stone extraction; Surgical procedure on thorax Christina Maya Work Phone: Plan of Treatment Date Care Activity Detail Author Start: 03-11-2031 Screening for malignant neoplasm of colon [facility] Start: 12-27-2030 DTaP/Tdap/Td Vaccine s (4 - Td or Tdap) DTaP/Tdap/Td Vaccines (4 - Td or Tdap) [facility] Start: 12-27-2030 [facility] Start: 02-01-2026 End: 02-01-2026 Patient encounter procedure 02/01/2026 2:00 PM EDT Office Visit [facility] Building [address] [place] [address] Broderick Morataya MD [address] [place] [address] [facility] Start: 10-18-2025 Medicare Annual Wellness Visit Medicare Annual Wellness Visit (AWV) [facility] Start: 10-13-2025 Lipid panel Lipid Panel [facility] Start: 10-13-2025 Thyroid stimulating hormone measurement TSH Level [facility] Start: 10-13-2025 Urine screening for protein Diabetes: Urine Protein Screening [facility] Start: 04-28-2025 Lipid panel Lipid Panel [facility] Start: 04-28-2025 Thyroid stimulating hormone measurement TSH Level [facility] Start: 04-19-2025 End: 04-19-2025 Patient encounter procedure 04/19/2025 1:00 PM EDT Office Visit [place] [id number] [facility] [address] [place] [address] Zahra Sanchez MD [address] [facility] [address] [place] [address] [facility] Start: 04-16-2025 COVID-19 Vaccine ( season) COVID-19 Vaccine ( season) [facility] Start: 04-16-2025 Influenza vaccination Influenza Vacc ine (#1) [facility] Start: 03-19-2025 End: 10-17-2025 CBC W Auto Differential panel - Blood CBC and Auto Differential Lab Routine Stage 3a chronic kidney disease (Multi) Type 2 Diabetes Mellitus With Other Circulatory Complication, Without Long-Term Current Use Of Insulin Atherosclerosis of [place] coronary artery of [place] heart, unspecified whether angina present Hyperlipidemia, unspecified hyperlipidemia type Hypothyroidism, unspecified type HTN (hypertension), benign Expected: 03/19/2025 (Approximate), Expires: 10/17/2025 [facility] Work Phone: Comment on above: Expected: 03/19/2025 (Approximate), Expires: 10/17/2025 Start: 03-19-2025 End: 10-17-2025 Cobalamin (Vitamin B12) [Mass/volume] in Serum or Plasma Vitamin B12 Lab Routine Stage 3a chronic kidney disease (Multi) Type 2 Diabetes Mellitus With Other Circulatory Complication, Without Long-Term Current Use Of Insulin Atherosclerosis of [place] coronary artery of [place] heart, unspecified whether angina present Hyperlipidemia, unspecified hyperlipidemia type Hypothyroidism, unspecified type HTN (hypertension), benign Expected: 03/19/2025 (Approximate), Expires: 10/17/2025 [facility] Work Phone: Comment on above: Expected: 03/19/2025 (Approximate), Expires: 10/17/2025 Start: 03-19-2025 End: 10-17-2025 Comprehensive metabolic 2000 panel - Serum or Plasma Comprehensive Metabolic Panel Lab Routine Stage 3a chronic kidney disease (Multi) Type 2 Diabetes Mellitus With Other Circulatory Complication, Without Long-Term Current Use Of Insulin Atherosclerosis of [place] coronary artery of [place] heart, unspecified whether angina present Hyperlipidemia, unspecified hyperlipidemia type Hypothyroidism, unspecified type HTN (hypertension), benign Expected: 03/19/2025 (Approximate), Expires: 10/17/2025 [facility] Work Phone: Comment on above: Expected: 03/19/2025 (Approximate), Expires: 10/17/2025 Start: 03-19-2025 End: 10-17-2025 Hemoglobin A1c/Hemoglobin.total in Blood Hemoglobin A1C Lab Routine Stage 3a chronic kidney disease (Multi) Type 2 Diabetes Mellitus With Other Circulatory Complication, Without Long-Term Current Use Of Insulin Atherosclerosis of [place] coronary artery of [place] heart, unspecified whether angina present Hyperlipidemia, unspecified hyperlipidemia type Hypothyroidism, unspecified type HTN (hypertension), benign Expected: 03/19/2025 (Approximate), Expires: 10/17/2025 [facility] Work Phone: Comment on above: Expected: 03/19/2025 (Approximate), Expires: 10/17/2025 Start: 03-19-2025 End: 10-17-2025 Lipid 1996 panel - Serum or Plasma Lipid Panel Lab Routine Stage 3a chronic kidney disease (Multi) Type 2 Diabetes Mellitus With Other Circulatory Complication, Without Long-Term Current Use Of Insulin Atherosclerosis of [place] coronary artery of [place] heart, unspecified whether angina present Hyperlipidemia, unspecified hyperlipidemia type Hypothyroidism, unspecified type HTN (hypertension), benign Expected: 03/19/2025 (Approximate), Expires: 10/17/2025 [facility] Work Phone: Comment on above: Expected: 03/19/2025 (Approximate), Expires: 10/17/2025 Start: 03-19-2025 End: 10-17-2025 Microalbumin/Creatinin e [Mass Ratio] in Urine Albumin-Creatinine Ratio, Urine Random Lab Routine Stage 3a chronic kidney disease (Multi) Type 2 Diabetes Mellitus With Other Circulatory Complication, Without Long-Term Current Use Of Insulin Atherosclerosis of [place] coronary artery of [place] heart, unspecified whether angina present Hyperlipidemia, unspecified hyperlipidemia type Hypothyroidism, unspecified type HTN (hypertension), benign Expected: 03/19/2025 (Approximate), Expires: 10/17/2025 [facility] Service Area Work Phone: Comment on above: Expected: 03/19/2025 (Approximate), Expires: 10/17/2025 Start: 03-19-2025 End: 10-17-2025 TSH with reflex to Free T4 if abnormal TSH with reflex to Free T4 if abnormal Lab Routine Stage 3a chronic kidney disease (Multi) Type 2 Diabetes Mellitus With Other Circulatory Complication, Without Long-Term Current Use Of Insulin Atherosclerosis of [place] coronary artery of [place] heart, unspecified whether angina present Hyperlipidemia, unspecified hyperlipidemia type Hypothyroidism, unspecified type HTN (hypertension), benign Expected: 03/19/2025 (Approximate), Expires: 10/17/2025 [facility] Work Phone: Comment on above: Expected: 03/19/2025 (Approximate), Expires: 10/17/2025 Start: 01-30-2025 End: 01-30-2025 Patient encounter procedure 01/30/2025 2:00 PM EDT Office Visit [facility] Medical [facility] Building [address] [place] [address] Broderick Morataya MD [address], [address] [place] [address] [facility] Start: 01-10-2025 Hemoglobin A1c measurement Diabetes: Hemoglobin A1C [facility] Start: 11-05-2024 Medicare Annual Wellness Visit Medicare Annual Wellness Visit (AWV) [facility] Start: 10-31-2024 End: 05-03-2025 CBC W Auto Differential panel - Blood CBC and Auto Differential Lab Routine Type 2 diabetes mellitus with other circulatory complication, without long-term current use of insulin (Multi) Hypothyroidism, unspecified type Hyperlipidemia, unspecified hyperlipidemia type HTN (hypertension), benign Stage 3a chronic kidney disease (Multi) Expected: 10/31/2024 (Approximate), Expires: 05/03/2025 [facility] Service Area Work Phone: Comment on above: Expected: 10/31/2024 (Approximate), Expires: 05/03/2025 Start: 10-31-2024 End: 05-03-2025 Cobalamin (Vitamin B12) [Mass/volume] in Serum or Plasma Vitamin B12 Lab Routine Type 2 diabetes mellitus with other circulatory complication, without long-term current use of insulin (Multi) Hypothyroidism, unspecified type Hyperlipidemia, unspecified hyperlipidemia type HTN (hypertension), benign Stage 3a chronic kidney disease (Multi) Expected: 10/31/2024 (Approximate), Expires: 05/03/2025 [facility] Work Phone: Comment on above: Expected: 10/31/2024 (Approximate), Expires: 05/03/2025 Start: 10-31-2024 End: 05-03-2025 Comprehensive metabolic 2000 panel - Serum or Plasma Comprehensive Metabolic Panel Lab Routine Type 2 diabetes mellitus with other circulatory complication, without long-term current use of insulin (Multi) Hypothyroidism, unspecified type Hyperlipidemia, unspecified hyperlipidemia type HTN (hypertension), benign Stage 3a chronic kidney disease (Multi) Expected: 10/31/2024 (Approximate), Expires: 05/03/2025 [facility] Work Phone: Comment on above: Expected: 10/31/2024 (Approximate), Expires: 05/03/2025 Start: 10-31-2024 End: 05-03-2025 Hemoglobin A1c/Hemoglobin.total in Blood Hemoglobin A1C Lab Routine Type 2 diabetes mellitus with other circulatory complication, without long-term current use of insulin (Multi) Hypothyroidism, unspecified type Hyperlipidemia, unspecified hyperlipidemia type HTN (hypertension), benign Stage 3a chronic kidney disease (Multi) Expected: 10/31/2024 (Approximate), Expires: 05/03/2025 [facility] Work Phone: Comment on above: Expected: 10/31/2024 (Approximate), Expires: 05/03/2025 Start: 10-31-2024 End: 05-03-2025 Lipid 1996 panel - Serum or Plasma Lipid Panel Lab Routine Type 2 diabetes mellitus with other circulatory complication, without long-term current use of insulin (Multi) Hypothyroidism, unspecified type Hyperlipidemia, unspecified hyperlipidemia type HTN (hypertension), benign Stage 3a chronic kidney disease (Multi) Expected: 10/31/2024 (Approximate), Expires: 05/03/2025 [facility] Work Phone: Comment on above: Expected: 10/31/2024 (Approximate), Expires: 05/03/2025 Start: 10-31-2024 End: 05-03-2025 TSH with reflex to Free T4 if abnormal TSH with reflex to Free T4 if abnormal Lab Routine Type 2 diabetes mellitus with other circulatory complication, without long-term current use of insulin (Multi) Hypothyroidism, unspecified type Hyperlipidemia, unspecified hyperlipidemia type HTN (hypertension), benign Stage 3a chronic kidney disease (Multi) Expected: 10/31/2024 (Approximate), Expires: 05/03/2025 [facility] Work Phone: Comment on above: Expected: 10/31/2024 (Approximate), Expires: 05/03/2025 Start: 10-28-2024 COVID-19 Vaccine () COVID-19 Vaccine () [facility] Start: 10-17-2024 End: 10-17-2024 Patient encounter procedure 10/17/2024 1:00 PM EST Office Visit [place] [id number] [place] [phone] Zahra Sanchez MD [address] [place] [address] [facility] Start: 09-10-2024 Thyroid stimulating hormone measurement [facility] Start: 08-30-2024 COVID-19 Vaccine ( season) COVID-19 Vaccine () [facility] Start: 08-01-2024 End: 08-01-2024 Patient encounter procedure 08/01/2024 3:00 PM EST Office Visit [facility] Medical Office Building [address] [place] [address] Broderick Morataya MD [address], [facility] 2 [place] [address] [facility] Start: 07-28-2024 Hemoglobin A1c measurement Diabetes: Hemoglobin A1C [facility] Start: 05-02-2024 End: 05-02-2024 Patient encounter procedure 05/02/2024 1:40 PM EDT Office Visit [place] [address] [place] [phone] Zahra Sanchez MD [address] [facility] [place] [place] [address] [facility] Start: 02-28-2024 End: 02-28-2024 Clinical Support 02/28/2024 1:30 PM EDT Clinical Support [place] [id number] [place] [address] [facility] Start: 02-25-2024 End: 02-25-2024 Clinical Support 02/25/2024 1:30 PM EDT Clinical Support [place] [id number] [place] [address] [facility] Start: 02-23-2024 End: 02-23-2024 Clinical Support 02/23/2024 1:30 PM EDT Clinical Support [address] [place] [address] [facility] Start: 02-21-2024 End: 02-21-2024 Clinical Support 02/21/2024 1:30 PM EDT Clinical Support [address] [address] [facility] Start: 02-18-2024 End: 02-18-2024 Clinical Support 02/18/2024 1:30 PM EDT Clinical Support [address] [place] [address] [facility] Start: 02-16-2024 End: 02-16-2024 Clinical Support 02/16/2024 1:30 PM EDT Clinical Support [address] [address] [facility] Start: 02-14-2024 End: 02-14-2024 Clinical Support 02/14/2024 1:30 PM EDT Clinical Support [address] [address] [facility] Start: 02-10-2024 End: 02-10-2024 Clinical Support 02/10/2024 1:30 PM EDT Clinical Support [place] [id number] [address] [facility] Start: 02-07-2024 End: 02-07-2024 Clinical Support 02/07/2024 1:30 PM EDT Clinical Support [place] [id number] [address] [facility] Start: 02-04-2024 End: 02-04-2024 Clinical Support 02/04/2024 1:30 PM EDT Clinical Support [address] [address] [facility] Start: 02-02-2024 End: 02-02-2024 Clinical Support 02/02/2024 1:30 PM EDT Clinical Support [address] [address] [facility] Start: 02-01-2024 End: 02-01-2024 ambulatory [facility] Start: 02-01-2024 End: 02-01-2024 Patient encounter procedure 02/01/2024 3:00 PM EDT Office Visit [facility] Office Building [address] [place] [address] Broedrick Morataya MD [address] [facility], [address] [address] [facility] Start: 01-26-2024 Glaucoma screening Diabetes: R etinopathy Screening [facility] Start: 12-10-2023 Hemoglobin A1c measurement [facility] Start: 11-09-2023 End: 11-09-2023 Patient encounter procedure 11/09/2023 2:00 PM EDT Office Visit [facility] 2 [address] [employer] [facility] [address] [place] [address] Jose Carlos Malagon MD [address] [place] [address] [facility] 2 Start: 11-05-2023 End: 11-05-2023 ambulatory [facility] Start: 11-05-2023 End: 11-05-2023 Patient encounter procedure 11/05/2023 1:40 PM EDT Office Visit [facility] [address] [place] [address] Zahra Sanchez MD [address] [facility] [place] [address] [facility] Start: 11-03-2023 End: 08-04-2024 CBC W Auto Differential panel - Blood CBC and Auto Differential Lab Routine Type 2 diabetes mellitus with other circulatory complication, without long-term current use of insulin (CMS/HCC) CAD S/P percutaneous coronary angioplasty HTN (hypertension), benign Hyperlipidemia, unspecified hyperlipidemia type Hypothyroidism, unspecified type Stage 3 chronic kidney disease, unspecified whether stage 3a or 3b CKD (CMS/HCC) Expected: 11/03/2023 (Approximate), Expires: 08/04/2024 [facility] Work Phone: Comment on above: Expected: 11/03/2023 (Approximate), Expires: 08/04/2024 Start: 11-03-2023 End: 08-04-2024 Cobalamin (Vitamin B12) [Mass/volume] in Serum or Plasma Vitamin B12 Lab Routine Type 2 diabetes mellitus with other circulatory complication, without long-term current use of insulin (CMS/HCC) CAD S/P percutaneous coronary angioplasty HTN (hypertension), benign Hyperlipidemia, unspecified hyperlipidemia type Hypothyroidism, unspecified type Stage 3 chronic kidney disease, unspecified whether stage 3a or 3b CKD (CMS/HCC) Expected: 11/03/2023 (Approximate), Expires: 08/04/2024 [facility] Work Phone: Comment on above: Expected: 11/03/2023 (Approximate), Expires: 08/04/2024 Start: 11-03-2023 End: 08-04-2024 Comprehensive metabolic 2000 panel - Serum or Plasma Comprehensive Metabolic Panel Lab Routine Type 2 diabetes mellitus with other circulatory complication, without long-term current use of insulin (CMS/HCC) CAD S/P percutaneous coronary angioplasty HTN (hypertension), benign Hyperlipidemia, unspecified hyperlipidemia type Hypothyroidism, unspecified type Stage 3 chronic kidney disease, unspecified whether stage 3a or 3b CKD ([facility]/HCC) Expected: 11/03/2023 (Approximate), Expires: 08/04/2024 [facility] Work Phone: Comment on above: Expected: 11/03/2023 (Approximate), Expires: 08/04/2024 Start: 11-03-2023 End: 08-04-2024 Hemoglobin A1c/Hemoglobin.total in Blood Hemoglobin A1C Lab Routine Type 2 diabetes mellitus with other circulatory complication, without long-term current use of insulin ([facility]) CAD S/P percutaneous coronary angioplasty HTN (hypertension), benign Hyperlipidemia, unspecified hyperlipidemia type Hypothyroidism, unspecified type Stage 3 chronic kidney disease, unspecified whether stage 3a or 3b CKD ([facility]/HCC) Expected: 11/03/2023 (Approximate), Expires: 08/04/2024 [facility] Work Phone: Comment on above: Expected: 11/03/2023 (Approximate), Expires: 08/04/2024 Start: 11-03-2023 End: 08-04-2024 Lipid 1996 panel - Serum or Plasma Lipid Panel Lab Routine Type 2 diabetes mellitus with other circulatory complication, without long-term current use of insulin ([facility]) CAD S/P percutaneous coronary angioplasty HTN (hypertension), benign Hyperlipidemia, unspecified hyperlipidemia type Hypothyroidism, unspecified type Stage 3 chronic kidney disease, unspecified whether stage 3a or 3b CKD ([facility]/HCC) Expected: 11/03/2023 (Approximate), Expires: 08/04/2024 [facility] Work Phone: Comment on above: Expected: 11/03/2023 (Approximate), Expires: 08/04/2024 Start: 11-03-2023 End: 08-04-2024 TSH with reflex to Free T4 if abnormal TSH with reflex to Free T4 if abnormal Lab Routine Type 2 diabetes mellitus with other circulatory complication, without long-term current use of insulin ([facility]) CAD S/P percutaneous coronary angioplasty HTN (hypertension), benign Hyperlipidemia, unspecified hyperlipidemia type Hypothyroidism, unspecified type Stage 3 chronic kidney disease, unspecified whether stage 3a or 3b CKD ([facility]/HCC) Expected: 11/03/2023 (Approximate), Expires: 08/04/2024 [facility] Work Phone: Comment on above: Expected: 11/03/2023 (Approximate), Expires: 08/04/2024 Start: 10-28-2023 End: 10-28-2023 Patient encounter procedure 10/28/2023 8:00 AM EDT Appointment [facility] [address] [place] [address] Kim Espino, MARIA C [facility] Start: 10-20-2023 End: 10-20-2023 Home visit [facility] Start: 10-18-2023 End: 10-18-2023 Home visit 10/18/2023 8:00 AM EST Home Care Visit [facility] [address] [place] [address] Ronnie Cui, OT [facility] Start: 10-13-2023 End: 10-13-2023 Home visit [facility] Start: 10-12-2023 End: 10-12-2023 Home visit 10/12/2023 8:30 AM EST Home Care Visit [facility] [address] [place] [address] Kim Espino RN [facility] Start: 10-11-2023 End: 10-11-2023 Home visit [facility] Start: 10-06-2023 End: 10-06-2023 Home visit [facility] Start: 10-05-2023 End: 10-05-2023 Home visit 10/05/2023 4:15 PM EST Home Care Visit [facility] [address] [place] [address] Janny Mesa RN [facility] Start: 10-04-2023 End: 10-04-2023 Home visit [facility] Start: 10-01-2023 End: 10-01-2023 Home visit 10/01/2023 9:00 AM EST Home Care Visit [facility] [address] [place] [address] Ronnie Cui, OT [facility] Start: 09-30-2023 End: 09-30-2023 Home visit 09/30/2023 2:30 PM EST Home Care Visit [facility] [address] [place] [address] Janny Mesa RN [facility] Start: 09-30-2023 End: 09-30-2023 Telemedicine consultation with patient 09/30/2023 9:30 AM EST Telemedicine Clinical Support [place] [employer] [facility] 2 6707 [facility] [employer] [facility] [address] [address] [facility] [employer] [facility] 2 Start: 09-29-2023 End: 09-29-2023 Home visit 09/29/2023 10:00 AM EST Home Care Visit [facility] [address] [place] [address] Christina Chang, FINANCIAL SERVICES TECHNICIAN [facility] Start: 09-28-2023 End: 09-28-2023 Home visit 09/28/2023 8:00 AM EST Home Care Visit [facility] [address] [place] [address] Ronnie Cui, OT [facility] Start: 09-27-2023 End: 09-27-2023 Home visit 09/27/2023 11:00 AM EST Home Care Visit [facility] [address] [place] [address] Christina Chang, FINANCIAL SERVICES TECHNICIAN [facility] Start: 09-24-2023 End: 09-24-2023 Home visit 09/24/2023 5:30 PM EST Home Care Visit [facility] [address] [place] [address] Christina Chang PTA [facility] Start: 09-24-2023 End: 09-24-2023 Telemedicine consultation with patient 09/24/2023 11:45 AM EST Telemedicine Clinical Support [facility] 2 6707 [facility] [address] [address] [facility] 2 Start: 09-23-2023 End: 09-23-2023 Home visit 09/23/2023 5:30 PM EST Home Care Visit [facility] [address] [place] [address] Christina Chang, JULIET [facility] Start: 09-23-2023 End: 09-23-2023 Patient encounter procedure 09/23/2023 1:20 PM EST Office Visit [facility] [address] [place] [address] Zahra Sanchez MD [address] [facility] [place] [phone] [facility] Start: 09-22-2023 End: 09-22-2023 Home visit [facility] Start: 09-13-2023 End: 09-13-2023 Admission to same day surgery center 09/13/2023 7:30 AM EST - 09/13/2023 12:[address] [facility] [place] [address] [place] [address] Jose Carlos Malagon MD 6707 [facility] [address] [place] [address] CORONARY ARTERY BYPASS GRAFT x3/ LEFT INTERNAL MAMMARY ARTERY/ VEIN [43412 (CPT )] [facility] [place] Comment on above: CORONARY ARTERY BYPA SS GRAFT x3/ LEFT INTERNAL MAMMARY ARTERY/ VEIN [43246 (CPT )] Start: 09-13-2023 End: 09-13-2023 Anesthesia consultation 09/13/2023 7:30 AM EST Anesthesia Event [facility] [place] [address] [place] [address] Darius Galeas MD [address] [facility] [place] [address] [facility] [place] Start: 09-13-2023 End: 09-13-2023 Coronary artery byp w/vein & artery graft 2 vein Creation Bypass Graft Coronary Artery with Arteriovenous Grafts 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 [place] heart with stable angina pectoris (CMS/HCC) 09/13/2023 7:30 AM EST Virtual [facility] OR Start: 09-13-2023 Subsequent hospital visit by physician [facility] [place] Comment on above: Coronary artery dise ase of [place] artery of [place] heart with stable angina pectoris (CMS/HCC) (Primary Dx); MCFADDEN (dyspnea on exertion) Start: 08-24-2023 End: 08-24-2023 Patient encounter procedure 08/24/2023 2:00 PM EST Office Visit [facility] 2 6707 [facility] [address] [place] [phone] Jose Carlos Malagon MD [address] [address] [facility] 2 Start: 08-05-2023 End: 08-05-2023 Patient encounter procedure 08/05/2023 3:00 PM EST Office Visit [facility] Medical Office Building [address] [place] [address] Broderick Morataya MD [address], [address] [place] [address] [facility] Start: 08-04-2023 End: 08-04-2023 Patient encounter procedure 08/04/2023 9:20 AM EST Office Visit [facility] [address] [place] [phone] Zahra Sanchez MD [address] [facility] [place] [address] [facility] Start: 08-02-2023 End: 08-02-2023 Patient encounter procedure 08/02/2023 2:00 PM EST Office Visit [facility] Medical Office Building [address] [place] [address] Broderick Morataya MD [address], [facility] 2 [place] [address] [facility] Start: 07-29-2023 End: 07-29-2023 Admission to same day surgery center 07/29/2023 8:00 AM EST - 07/29/2023 9:00 AM EST Surgery [address] [address] Broderick Morataya MD [address], [facility] 2 [place] [phone] Left Heart Cath [facility] Comment on above: Left Heart Cath Start: 07-29-2023 Subsequent hospital visit by physician 07/29/2023 6:30 AM EST Hospital Encounter [address] [address] Broderick Morataya MD [address], [facility] 2 [place], [place] [phone] Chronic ischemic heart disease; Shortness of breath on exertion [facility] Comment on above: Chronic ischemic hea rt disease; Shortness of breath on exertion Start: 07-22-2023 End: 07-22-2023 Admission to same day surgery center 07/22/2023 8:00 AM EST - 07/22/2023 9:00 AM EST Surgery [place] [address] [place] [address] Broderick Morataya MD [address], [address] [phone] Left Heart Cath [facility] Comment on above: Left Heart Cath Start: 07-22-2023 Subsequent hospital visit by physician 07/22/2023 8:00 AM EST Hospital Encounter [place] [address] [place] [address] Broderick Morataya MD [address] [facility], [address] [address] Chronic ischemic heart disease; Shortness of breath on exertion [facility] Comment on above: Chronic ischemic hea rt disease; Shortness of breath on exertion Start: 06-21-2023 End: 06-21-2023 Patient encounter procedure 06/21/2023 12:30 PM EST Appointment [place] [id number] [phone] [facility] Start: 06-07-2023 End: 06-07-2025 [facility] Transthoracic Transthoracic Echo (TTE) Complete Echocardiography Routine Chronic ischemic heart disease Shortness of breath on exertion Expected: 06/07/2023 (Approximate), Expires: 06/07/2025 [facility] Service Area Work Phone: Comment on above: Expected: 06/07/2023 (Approximate), Expires: 06/07/2025 Start: 04-16-2023 COVID-19 Vaccine () COVID-19 Vaccine () [facility] Start: 04-16-2023 [facility] Start: 10-30-2022 COVID-19 Vaccine (4 - Pfizer series) COVID-19 Vaccine (4 - Pfizer series) [facility] Start: 09-25-2022 FUV, Provider: Aftab,Sam, Status: Pen, Time: 1:00 PM FUV, Provider: Sam Ugalde, Status: Pen, Time: 1:00 PM [id number] [address] Work Phone: Start: 10-28-2021 ADLTPAP, Provider: [facility],[id number], Status: Pen, Time: 7:30 PM ADLTPAP, Provider: [facility] 1,[id number], Status: Pen, Time: 7:30 PM [id number] [address] Work Phone: Start: 07-09-2021 FUV, Provider: Rosa Maria Valdez, Status: Pen, Time: 3:30 PM FUV, Provider: Rosa Maria Valdez, Status: Pen, Time: 3:30 PM [facility] [address] Work Phone: Start: 04-16-2021 Influenza vaccination [facility] Start: 03-31-2021 End: 03-31-2021 Admission to same day surgery center 03/31/2021 Surgery José Manuel Naylor MD [address] [place] [address] [phone] COLONOSCOPY [facility] Comment on above: COLONOSCOPY Start: 03-31-2021 Subsequent hospital visit by physician 03/31/2021 Hospital Encounter José Manuel Naylor MD [address] [place] [address] [phone] [facility] Start: 03-11-2021 End: 03-11-2021 Patient encounter procedure 03/11/2021 Office Visit Gastroenterology Hamlet Carbajal MD [address] [place] [address] [phone] José Manuel Naylor MD [address] [place] [address] [phone] [facility] Start: 03-13-2020 Tetanus vaccination Tetanus: Every 1 0yrs [facility] Start: 05-24-2019 End: 05-24-2020 Diagnostic radiography of lumbar spine [facility] Comment on above: Expected: 05/24/2019 , Expires: 05/24/2020 1 Occurrences starti ng 05/24/2019 until 05/24/2019 Start: 04-16-2019 Influenza vaccination INFLUENZA VACC INE (#1) [facility] Start: 04-16-2019 Influenza vaccinatio n given SEQUENTIAL INFLUENZA VACCINE (Season Ended) [facility] Start: 05-05-2018 End: 05-05-2018 Ambulatory 05/05/2018 Office Visit Cardiology Eric Rios MD [address] [place] [address] [phone] [facility] Office Start: 04-16-2018 Influenza vaccination [facility] Start: 02-23-2018 End: 02-23-2018 Ambulatory 02/23/2018 Office Visit Cardiology Yadira Zaman, PETER [address] [facility] [address] [place] [address] [phone] [facility] Office Start: 01-31-[address] [facility] Clinical Nurse Specialist Start: 01-27-2018 End: 01-27-2018 Ambulatory [facility] Office Start: 2012 Abdominal aortic aneurysm screening ABDOMINAL AORTIC ANEURYSM HIGH RISK SCREEN [facility] Start: 2012 Fall risk assessment Falls Risk Asse ssment [facility] Start: 2012 Pneumococcal vaccination [facility] Start: 2007 Zoster vacc, sc ZOSTER VACCINE [facility] Start: 1997 Administration of herpes zoster vaccine Zoster Vaccines (1 of 2) [facility] Start: 1997 Colonoscopy COLON CANCER S CREENING DISCUSSION [facility] Start: 1997 Prostate specific antigen measurement PROSTATE CANCER SCREENING DISCUSSION [facility] Start: 1997 Screening for malignant neoplasm of colon [facility] Start: 1997 Zoster vaccine hzv live for subcutaneous use ZOSTER (SHINGLES) VACCINE (1 of 2) [facility] Start: 1997 ZOSTER VACCINES (1 o f 2) ZOSTER VACCINES (1 of 2) [facility] Start: 1987 Fasting lipid profile LIPID SCREENIN G [facility] Start: 1966 Third diphtheria, tetanus and acellular pertussis (DTaP) vaccination TDAP (ADULT) [facility] Start: 1966 Urine screening for protein [facility] Start: 1965 Hepatitis C screening U [facility] Start: 1965 Tetanus vaccination [facility]US [facility] Start: 1959 COVID-19 Vaccine (1) COVID-19 Vaccin e (1) [facility] Start: 1959 Depression screening using PHQ-9 (Patient Health Questionnaire 9) score Depression Screening (PHQ9) [facility] Start: 1957 Diabetic foot examination [facility] Start: 1957 Glaucoma screening [facility] Start: 1957 Microalbumin measurement, urine, quantitative Urine Microalbumin [facility] Start: 1957 Ophthalmic examinati on and evaluation Ophthalmology Exam [facility] Start: 1953 Pneumococcal Vaccine : Age 65+ (1 of 2 - PPSV23) Pneumococcal Vaccine: Age 65+ (1 of 2 - PPSV23) [facility] Start: 1950 History and physical examination, annual for health maintenance Wellness Visit [facility] Start: 03-14-1948 Examination of skin [facility] Start: 1947 Fall risk assessment Falls Risk Asse ssment [facility] Start: 1947 Hemoglobin A1c measurement [facility] Start: 1947 Hepatitis C antibody , confirmatory test [facility] Start: 1947 HEPATITIS C SCREENING HEPATITIS C SC REENING [facility] Start: 1947 Lipid panel [facility] Start: 1947 Medicare Annual Wellness Visit [facility] Start: 1947 Prostate specific antigen measurement PSA Level [facility] Start: 1947 Screening [facility] Start: 1947 Screening for malignant neoplasm of colon [facility] Start: 1947 Tetanus vaccination [facility] Start: 1947 Thyroid stimulating hormone measurement TSH Level [facility] Anesthesia Intraoperative Transesophageal Echocardiogram Anesthesia Intraoperative Transesophageal Echocardiogram Echocardiography Routine 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 [place] heart with stable angina pectoris (CMS/HCC) MCFADDEN (dyspnea on exertion) 09/13/2023 6:[address] [facility] Work Phone: Arterial Blood Gas (ABG) Arterial Blood Gas (ABG) PFT Routine 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 [place] heart with stable angina pectoris (CMS/HCC) Pre-op examination 09/10/2023 10:48 AM EST [facility] Work Phone: End: 01-27-2019 Basic metabolic panel [AGGREGATE] Basic metabolic panel Routine Pre-procedure lab exam MCFADDEN (dyspnea on exertion) 1 Occurrences starting 01/27/2018 until 01/27/2019 [facility] End: 01-27-2019 CBC and differential CBC and differential Routine Pre-procedure lab exam MCFADDEN (dyspnea on exertion) 1 Occurrences starting 01/27/2018 until 01/27/2019 [facility] End: 09-20-2023 CBC panel - Blood by Automated count [facility] Work Phone: Coronary artery byp w/vein & artery graft 2 vein Creation Bypass Graft Coronary Artery with Arteriovenous Grafts 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 [place] heart with stable angina pectoris (CMS/HCC) Virtual PAR OR End: 09-10-2023 CT Chest WO contrast [facility] Work Phone: Comment on above: Once for 1 Occurrenc es starting 09/10/2023 until 09/10/2023 End: 01-10-2019 CT of chest without contrast CT Chest Without Contrast Imaging Routine Calhoun lesion Once for 1 Occurrences starting 01/10/2019 until 01/10/2019 [facility] Comment on above: Once for 1 Occurrenc es starting 01/10/2019 until 01/10/2019 CT of chest without contrast CT Chest Without Contrast Imaging Routine [place]houn lesion 01/10/2019 3:28 PM EDT [facility] End: 09-13-2023 Determination of physical activity tolerance [facility] Work Phone: Diagnostic radiograp hy of lumbar spine XR LUMBAR SPINE BENDING ONLY 4+ VW Imaging Routine Pain 05/24/2019 10:30 AM EDT [employer] End: 01-31-2018 ECG 12 Lead ECG 12 Lead Routine Once for 1 Occurrences starting 01/31/2018 until 01/31/2018 [facility] ECG 12 lead ECG 12 lead ECG Routine 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 [place] heart with stable angina pectoris (CMS/HCC) Pre-op examination 09/16/2023 3:12 PM EST [facility] Work Phone: ECG 12 lead (Ancilla ry Performed) ECG 12 lead (Ancillary Performed) ECG Routine ACS (acute coronary syndrome) (CMS/HCC) 09/21/2023 11:53 AM EST [facility] Work Phone: Electrocardiogram, 12-lead PRN ACS symptoms [facility] Work Phone: Electrocardiogram, 12-lead PRN ACS symptoms [facility] Work Phone: Glucose [Mass/volume ] in Serum or Plasma [facility] Work Phone: Hemoglobin A1c/Hemoglobin.total in Blood Hemoglobin A1C Lab Routine 04/15/2023 [facility] Work Phone: End: 09-13-2023 Incentive spirometry Instruct [facility] Work Phone: LEFT HEART CATH LEFT HEART CATH Chronic ischemic heart disease Shortness of breath on exertion [facility] Work Phone: End: 09-20-2023 Magnesium [Mass/volume] in Serum or Plasma [facility] Work Phone: End: 09-20-2023 Renal function 2000 panel - Serum or Plasma [facility] Work Phone: End: 09-20-2023 Respiratory care eval and treat [facility] Work Phone: Spirometry Pre/Post Bronchodilator Spirometry Pre/Post Bronchodilator PFT Routine Coronary artery disease involving [place] coronary artery of [place] heart with other form of angina pectoris (CMS/HCC) Preop examination 09/10/2023 11:22 AM EST [facility] Work Phone: End: 11-09-2023 XR Chest 2 Views [facility] Work Phone: Comment on above: Once for 1 Occurrenc es starting 11/09/2023 until 11/09/2023 End: 09-19-2023 XR Chest Single view [facility] Work Phone: XR Chest Single view [facility] Work Phone: NEGATED: Highlighted row has been ruled out! Planned Goals not documented [facility] [facility] [address] [address] Work Phone: Immunizations Immunization Date Immunization Notes Care Provider [facility] 04-30-2024 influenza, high dose seasonal, preservative-free Zahra Sanchez MD Work Phone: [facility] Work Phone: 04-30-2024 influenza virus vacc ine, unspecified formulation Zahra Sanchez MD Work Phone: [facility] Work Phone: 06-10-2023 RESPIRATORY SYNCYTIA L VIRUS (RSV), ELIGIBLE PTS, 0.5 ML (ABRYSVO) Zahra Sanchez MD Work Phone: [facility] Work Phone: 05-20-2023 influenza, injectabl e, quadrivalent, preservative free Broderick Garcia MD Work Phone: [facility] Work Phone: 09-04-2022 Pfizer COVID-19 vacc ine, bivalent, age 12 years and older (30 mcg/0.3 mL) Broderick Garcia MD Work Phone: [facility] Work Phone: 06-24-2022 hepatitis B vaccine, adult dosage Broderick Garcia MD Work Phone: [facility] Work Phone: 05-27-2022 Flu vaccine, quadrivalent, high-dose, preservative free, age 65y+ (FLUZONE) Broderick Garcia MD Work Phone: [facility] Work Phone: 05-17-2022 Flu vaccine, quadrivalent, high-dose, preservative free, age 65y+ (FLUZONE) Broderick Garcia MD Work Phone: [facility] Work Phone: 02-10-2022 Pfizer Phillips Cap SARS-CoV-2 Broderick Garcia MD Work Phone: [facility] Work Phone: 06-18-2021 Pfizer Purple Cap SARS-CoV-2 Broderick Garcia MD Work Phone: [facility] Work Phone: 06-12-2021 Influenza, Seasonal, Quadrivalent, Adjuvanted Broderick Garcia MD Work Phone: [facility] Work Phone: 06-11-2021 Flu vaccine, quadrivalent, high-dose, preservative free, age 65y+ (FLUZONE) Broderick Garcia MD Work Phone: [facility] Work Phone: 12-27-2020 tetanus and diphther ia toxoids, adsorbed, preservative free, for adult use (5 Lf of tetanus toxoid and 2 Lf of diphtheria toxoid) Broderick Garcia MD Work Phone: [facility] Work Phone: 10-06-2020 Pfizer SARS-CoV-2 Vaccination José Manuel Naylor MD Work Phone: [facility] 09-15-2020 Pfizer SARS-CoV-2 Vaccination José Manuel Naylor MD Work Phone: [facility] 06-12-2020 influenza, injectabl e, quadrivalent, preservative free Broderick Garcia MD Work Phone: [facility] Work Phone: 05-16-2020 influenza virus vacc ine, unspecified formulation Broderick Garcia MD Work Phone: [facility] Work Phone: 05-01-2020 Flu vaccine, quadrivalent, high-dose, preservative free, age 65y+ (FLUZONE) Broderick Garcia MD Work Phone: [facility] Work Phone: 06-07-2019 influenza, injectabl e, quadrivalent, preservative free Broderick Garcia MD Work Phone: [facility] Work Phone: 05-31-2019 Seasonal trivalent influenza vaccine, adjuvanted, preservative free Broderick Garcia MD Work Phone: [facility] Work Phone: 10-07-2018 zoster vaccine recombinant Broderick Garcia MD Work Phone: [facility] Work Phone: 06-21-2018 influenza, high dose seasonal, preservative-free Zahra Sanchez MD Work Phone: [facility] Work Phone: 06-21-2018 Seasonal trivalent influenza vaccine, adjuvanted, preservative free Broderick Garcia MD Work Phone: [facility] Work Phone: 06-21-2018 zoster vaccine recombinant Broderick Garcia MD Work Phone: [facility] Work Phone: 06-21-2018 influenza virus vacc ine, unspecified formulation [facility] 07-02-2017 influenza, high dose seasonal, preservative-free Broderick Garcia MD Work Phone: [facility] Work Phone: 07-02-2017 pneumococcal polysaccharide vaccine, 23 valent Broderick Garcia MD Work Phone: [facility] Work Phone: 05-27-2016 influenza, injectabl e, quadrivalent, contains preservative Broderick Garcia MD Work Phone: [facility] Work Phone: 05-16-2016 influenza virus vacc ine, unspecified formulation Broderick Garcia MD Work Phone: [facility] Work Phone: 05-29-2015 influenza virus vacc ine, unspecified formulation Broderick Garcia MD Work Phone: [facility] Work Phone: 05-29-2015 influenza, high dose seasonal, preservative-free Zahra Sanchez MD Work Phone: [facility] Work Phone: 05-16-2015 influenza, injectabl e, quadrivalent, preservative free Dr. Zahra Sanchez MD Work Phone: [facility] 07-31-2014 pneumococcal conjuga te vaccine, 13 valent Broderick Garcia MD Work Phone: [facility] Work Phone: 07-24-2014 influenza, seasonal, injectable, preservative free Broderick Garcia MD Work Phone: [facility] Work Phone: 05-16-2013 influenza virus vacc ine, unspecified formulation Broderick Garcia MD Work Phone: [facility] Work Phone: 12-27-2012 hepatitis A and hepatitis B vaccine Broderick Garcia MD Work Phone: [facility] Work Phone: 12-27-2012 hepatitis A vaccine, adult dosage Broderick Garcia MD Work Phone: [facility] Work Phone: 06-28-2012 hepatitis A and hepatitis B vaccine Broderick Garcia MD Work Phone: [facility] Work Phone: 05-25-2012 hepatitis A and hepatitis B vaccine Broderick Garcia MD Work Phone: [facility] Work Phone: 05-25-2012 hepatitis B vaccine, adult dosage Broderick Garcia MD Work Phone: [facility] Work Phone: 05-09-2012 influenza virus vacc ine, unspecified formulation Broderick Garcia MD Work Phone: [facility] Work Phone: 05-26-2011 influenza virus vacc ine, unspecified formulation Broedrick Garcia MD Work Phone: [facility] Work Phone: 06-16-2010 influenza virus vacc ine, unspecified formulation Broderick Garcia MD Work Phone: [facility] Work Phone: 03-13-2010 diphtheria, tetanus toxoids and acellular pertussis vaccine, unspecified formulation Broderick Garcia MD Work Phone: [facility] Work Phone: 03-13-2010 tetanus toxoid, redu phong diphtheria toxoid, and acellular pertussis vaccine, adsorbed Broderick Garcia MD Work Phone: [facility] Work Phone: 09-17-2009 pneumococcal vaccine , unspecified formulation Broderick Garcia MD Work Phone: [facility] Work Phone: 07-16-2009 influenza virus vacc ine, unspecified formulation Broderick Garcia MD Work Phone: [facility] Work Phone: Payers Date Payer Category Payer Unknown [id number] 2025 Self-pay 2022 Medicare [id number] 2022 Medicare (Managed Care) [facility] MEDICARE [id number] 08-16-2020 Medicare MMO MANAGED [facility] C[facility] MMO MANAGED MEDICARE O [id number] 08/16/2020-Present [id number]. [id number] 08-16-2020 Medicare [id number] 01-06-2019 Unknown [id number] 01-06-2019 Unknown [facility] xxxxx xxxx 01/06/2019-Present xxxxxxxxx [id number]. [id number] 01-06-2019 Unknown [id number] 1.2.840.017818.1.13.385.2. [id number] 08-16-2015 Blue Cross Blue Shield [id number] 08-16-2015 Medicare [id number]. [id number] 08-16-2015 Medicare [id number] 1.2.840.786690.1.13.385.2. [id number] 1947 Unknown [id number] 2.16.840.1.212429.3.579.2. 903 1947 Unknown [id number] 2.16.840.1.219172.3.579.2. 1947 Unknown [id number] 2.16.840.1.555907.3.579.2. 902 1947 Unknown [id number] 2.16.840.1.320497.3.579.2. 356 1947 Unknown [id number] 2.16.840.1.867888.3.579.2. 3 1947 Unknown [id number] 2.16.840.1.503139.3.579.2. 1242 1947 Unknown [id number] 2.16.840.1.931135.3.579.2. 1242 1947 Unknown [id number] 2.16.840.1.693456.3.579.2. 1242 1947 Unknown [id number] 2.16840.1.148599.3.579.2. 1242 1947 Unknown [id number] 2.16.840.1.171374.3.579.2. 1242 1947 Unknown [id number] 2.16.840.1.614653.3.579.2. 1242 1947 Unknown [id number] 2.16.840.1.500908.3.579.2. 1242 1947 Unknown [id number] 2.16.840.1.745087.3.579.2. 124 1947 Unknown [id number] 2.16.840.1.677922.3.579.2. 1242 1947 Unknown [id number] 2.16.840.1.440636.3.579.2. 1242 1947 Unknown [id number] 2.16.840.1.010737.3.579.2. 1242 1947 Unknown [id number] 2.16.840.1.091097.3.579.2. 1242 1947 Unknown [id number] 2.16.840.1.840475.3.579.2. 1242 1947 Unknown [id number] 2.16.840.1.860641.3.579.2. 1242 1947 Unknown [id number] 2.16.840.1.005887.3.579.2. 1242 1947 Unknown [id number] 2.16.840.1.509873.3.579.2. 1242 1947 Unknown [id number] 2.16.840.1.753949.3.579.2. 1242 1947 Unknown [id number] 2.16.840.1.749359.3.579.2. 1242 1947 Unknown [id number] 2.16.840.1.501275.3.579.2. 1242 1947 Unknown [id number] 2.16.840.1.829328.3.579.2. 1242 1947 Unknown [id number] 2.16.840.1.348780.3.579.2. 1242 1947 Unknown [id number] 2.16.840.1.349296.3.579.2. 1242 1947 Unknown [id number] 2.16.840.1.490981.3.579.2. 1242 1947 Unknown [id number] 2.16.840.1.317832.3.579.2. 1242 1947 Unknown [id number] 2.16.840.1.223388.3.579.2. 1242 1947 Unknown [id number] 2.16.840.1.006220.3.579.2. 1242 1947 Unknown [id number] 2.16.840.1.591799.3.579.2. 1242 1947 Unknown [id number] 2.16.840.1.453990.3.579.2. 1242 1947 Unknown [id number] 2.16.840.1.561506.3.579.2. 1242 1947 Unknown [id number] 2.16.840.1.940895.3.579.2. 1242 1947 Unknown [id number] 2.16.840.1.943726.3.579.2. 1242 1947 Unknown [id number] 2.16.840.1.770586.3.579.2. 1242 1947 Unknown [id number] 2.16.840.1.015392.3.579.2. 1242 1947 Unknown [id number] 2.16.840.1.362533.3.579.2. 1242 1947 Unknown [id number] 2.16.840.1.861906.3.579.2. 1242 1947 Unknown [id number] 2.16.840.1.881112.3.579.2. 1242 1947 Unknown [id number] 2.16.840.1.712903.3.579.2. 1242 1947 Unknown [id number] 2.16.840.1.038107.3.579.2. 1242 1947 Unknown [id number] 2.16.840.1.829440.3.579.2. 1242 1947 Unknown [id number] 2.16.840.1.343487.3.579.2. 1242 1947 Unknown [id number] 2.16.840.1.846455.3.579.2. 1242 1947 Unknown [id number] 2.16.840.1.373810.3.579.2. 1243 1947 Unknown [id number] 2.16.840.1.758915.3.579.2. 1242 1947 Unknown [id number] 2.16.840.1.471191.3.579.2. 1242 1947 Unknown [id number] 2.16.840.1.659331.3.579.2. 1244 1947 Unknown [id number] 2.16.840.1.720596.3.579.2. 1244 1947 Unknown [id number] 2.16.840.1.111520.3.579.2. 1244 1947 Unknown [id number] 2.16.840.1.399656.3.579.2. 1244 1947 Unknown [id number] 2.16.840.1.561171.3.579.2. 1246 1947 Unknown [id number] 2.16.840.1.151586.3.579.2. 1246 1947 Unknown [id number] 2.16.840.1.293950.3.579.2. 1246 1947 Unknown [id number] 2.16.840.1.289350.3.579.2. 1246 1947 Unknown [id number] 2.16.840.1.283849.3.579.2. 1246 1947 Unknown [id number] 2.16.840.1.445688.3.579.2. 1246 1947 Unknown [id number] 2.16.840.1.105419.3.579.2. 1246 1947 Unknown [id number] 2.16.840.1.389380.3.579.2. 1246 1947 Unknown [id number] 2.16.840.1.150236.3.579.2. 1247 1947 Unknown [id number] 2.16.840.1.490010.3.579.2. 1246 1947 Unknown [id number] 2.16.840.1.947817.3.579.2. 1246 1947 Unknown [id number] 2.16.840.1.884295.3.579.2. 1246 1947 Unknown [id number] 2.16.840.1.578780.3.579.2. 1246 1947 Unknown [id number] 2.16.840.1.854223.3.579.2. 1246 1947 Unknown [id number] 2.16.840.1.657565.3.579.2. 1246 1947 Unknown [id number] 2.16.840.1.533667.3.579.2. 1246 1947 Unknown [id number] 2.16.840.1.993290.3.579.2. 1243 1947 Unknown [id number] 2.16.840.1.345286.3.579.2. 1243 1947 Unknown [id number] 2.16.840.1.528863.3.579.2. 1243 1947 Unknown [id number] 2.16.840.1.521545.3.579.2. 1243 1947 Unknown [id number] 2.16.840.1.132720.3.579.2. 1244 Medicare MEDICARE PART A B [id number] Unknown Unknown [id number] 2.16840.1.054386.3.579.2. 462 Unknown [id number] 2.16840.1.861123.3.579.2. 462 Social History Date Type Detail Facility Start: 08-18-2016 End: 08-03-2023 Tobacco smoking status NHIS Never smoker [facility] Start: 1945 Sex Assigned At Not on file [facility] Start: 02-23-2018 End: 08-03-2023 Tobacco use and exposure Never used [facility] Start: 02-23-2018 End: 03-11-2021 Alcohol intake Current non-drinker of alcohol (finding) [facility] Start: 05-28-2023 End: 10-17-2024 Exposure to SARS-CoV-2 (event) Not sure [facility] Start: 06-07-2023 End: 09-13-2023 Non-smoker Non-smoker [facility] Comment on above: 1-2 CUPS COFFEE3 HOT TEAS; Start: 06-07-2023 End: 04-19-2025 Alcohol intake Ex-drinker (finding) [facility] Work Phone: Start: 06-07-2023 End: 09-13-2023 Gender identity Not on file [facility] Tobacco smoking status HIIS Tobacco smoking consumption unknown [facility] Work Phone: (I/We) worried whether (my/our) food would run out before (I/we) got money to buy more. Never true [facility] How often to you hav e a drink containing alcohol? Never [facility] Start: 07-11-2022 How many standard drinks containing alcohol do you have on a typical day? Patient does not drink [facility] Work Phone: In the past 12 months, was there a time when you were not able to pay the mortgage or rent on time? No [facility] Work Phone: How often do you fee l lonely or isolated from those around you [[facility] Assessment] Sometimes [facility] Work Phone: Start: 09-11-2023 End: 09-21-2023 Exposure to SARS-CoV-2 (event) Unable to assess [facility] Start: 01-15-2025 Tobacco smoking status NHIS Ex-smoker (finding) [facility] Start: 1945 Sex Assigned At Male [facility] NEGATED: Highlighted rowStart: CELESTINOF History of tobacco use Passive smoker [facility] Work Phone: Medical Equipment Procedure Code Equipment Code Equipment Origin al Text Equipment Identifier Dates Stent 5.00 X 12 [facility] - [id number] Start: 01-31-2018 Stent 5.00 X 12 [facility] - [id number] Start: 01-31-2018 Stent 5.00 X 12 [facility] - [id number] Start: 01-31-2018 Stent 5.00 X 12 [facility] - [id number] Start: 01-31-2018 Stent 5.00 X 12 [facility] - [id number] Start: 01-31-2018 [id number] Start: 09-13-2023 [id number] Start: 09-13-2023 [id number] Start: 09-13-2023 [id number] Start: 09-13-2023 Functional Status Date Assessment Result Facility NEGATED: Highlighted row Functional performance Functional status health issues are not documented [facility] Work Phone: Mental Status Date Assessment Result Facility NEGATED: Highlighted row Cognitive function [Interpretation] Cognitive status health issues are not documented [facility] Work Phone: Clinical Notes 03-11-2021 to 04-19-2025 Zahra Sanchez MD - 04/19/2025 1:00 PM EDTPatient Instructions Note Date & Type Note Facility 04-19-2025 History of Present illness Narrative Subjective Ruth Mackey is a 79 y.o. male who presents for Follow-up (6 month check up). Here for follow up HTN, high chol, CAD, s/p stents 2017, ischemic heart disease, CABG 2023 (Dr Garcia, Dr Malagon), DM, ETHAN (not tolerant of CPAP), hypothyroidism. He states that overall he is doing pretty well. He is having some issues with arthritis, otherwise he is doing well. He has had cortisone injections in both knees. He is due for labs. Objective Visit Vitals BP 122/80 Pulse 68 Physical Exam Vitals reviewed. Constitutional: General: He is not in acute distress. Cardiovascular: Rate and Rhythm: Normal rate and regular rhythm. Heart sounds: No murmur heard. Pulmonary: Effort: Pulmonary effort is normal. No respiratory distress. Breath sounds: Normal breath sounds. Skin: General: Skin is warm and dry. Neurological: General: No focal deficit present. Mental Status: He is alert. Mental status is at baseline. Assessment/Plan Problem List Items Addressed This Visit Coronary atherosclerosis Relevant Orders Follow Up In Primary Care - Medicare Annual Diabetes mellitus (Multi) Relevant Orders Follow Up In Primary [facility] - Medicare Annual Gastroesophageal reflux disease Relevant Orders Follow Up In Primary [facility] - Medicare Annual HTN (hypertension), benign - Primary Relevant Orders Follow Up In Primary [facility] - Medicare Annual Hyperlipidemia Relevant Orders Follow Up In Primary [facility] - Medicare Annual Hypothyroidism Relevant Orders Follow Up In Primary Care - Medicare Annual Stage 3 chronic kidney disease (Multi) Relevant Orders Follow Up In Primary [facility] - Medicare Annual Zahra Sanchez MD documented in this encounter [facility] Work Phone: 04-19-2025 Instructions Zahra Sanchez MD - 04/19/2025 1:00 PM EDT Continue current medications. Get labs soon. Follow up with specialists as scheduled. Follow up in 6 months, sooner if needed. documented in this encounter [facility] Work Phone: 04-19-2025 Evaluation note Diagnosis Routine general medical examination at health care facility- Primary Routine general medical examination at a health care facility Stage 3a chronic kidney disease (Multi) Type 2 diabetes mellitus with other circulatory complication, without long-term current use of insulin Atherosclerosis of [place] coronary artery of [place] heart, unspecified whether angina present Hyperlipidemia, unspecified hyperlipidemia type Hypothyroidism, unspecified type HTN (hypertension), benign Essential hypertension, benign HTN (hypertension), benign- Primary Essential hypertension, benign Stage 3a chronic kidney disease (Multi) Type 2 diabetes mellitus with other circulatory complication, without long-term current use of insulin Atherosclerosis of [place] coronary artery of [place] heart, unspecified whether angina present Hyperlipidemia, unspecified hyperlipidemia type Hypothyroidism, unspecified type Gastroesophageal reflux disease, unspecified whether esophagitis present documented in this encounter [facility] Work Phone: 1(690) 646-500806-17-2025 History of Present illness Narrative* Broderick Garcia MD - 01/30/2025 2:00 PM EDT Chief Complaint Patient presents with 6 month f/u HPI: I was requested by Dr. Sanchez to evaluate this patient in consultation for cardiac assessment. Patient 79-year-old non-smoker diabetic male with prior medical history significant for Coronary Artery Disease status post ostial RCA stent (2018), hypertension, hyperlipidemia, type 2 diabetes mellitus, severe ETHAN on CPAP, lumbosacral spondylosis, neurogenic claudication due to chronic lumbar spinal stenosis, hypothyroidism. He is currently feeling fine and is very active, however he endorses chest pain and some shortness of breath every time he exercises too much. His chest pain is pressure in nature, in the upper chest, gets worse with exercises, improves after a few minutes after resting. He denies palpitations, leg edema, lightheadedness, headaches, fever, chills, orthopnea, paroxysmal nocturnal dyspnea or syncope. The EKG today shows normal sinus rhythm with no signs of ACS. Previously complaining of chest pain and shortness of breath for extra-habitual exertion. He statesthat it is relief with resting and nitroglycerin. Patient underwent nuclear stress test on 05/31/2023, showin. 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 2. The left ventricle is normal in size. 3. Decreased LV wall motion in the basal lateral wall with an LV EF estimated at 63%. Previously complaining of excessive bruising on ASA and Clopidogrel. Patient returns today stating that is asymptomatic from the cardiovascular standpoint and feeling fine. Has been compliant to the medication. Denies chest pain, shortness of breath, palpitations, legedema, lightheadedness, headaches, fever, chills, orthopnea, paroxysmal nocturnal dyspnea or syncope. Past Medical History Medical History[1] Past Surgical History Surgical History[2] Past Family History Family History[3] Allergy History Allergies[4] Past Social History Social History[5] Tobacco Use History[6] Objective Data: Last Recorded Vitals: Vitals: 01/30/25 1405 Height: 1.702 m (5' 7) Last Labs: CBC - 10/13/2024: 10:41 AM 5.6 12.8 233 38.9 CMP - 10/13/2024: 10:41 AM 9.4 6.6 12 --- 1.7 _ 4.1 14 52 PTT - No results in last year. _ _ _ HGBA1C Date/Time Value Ref Range Status 10/13/2024 10:41 AM 7.0 <5.7 % of total Hgb Final Comment: For someone without known diabetes, a hemoglobin A1c value of 6.5% or greater indicates that they may have diabetes and this should be confirmed with a follow-up test. For someone with known diabetes, a value <7% indicates that their diabetes is well controlled and a value greater than or equal to 7% indicates suboptimal control. A1c targets should be individualized based on duration of diabetes, age, comorbid conditions, and other considerations. Currently, no consensus exists regarding use of hemoglobin A1c for diagnosis of diabetes for children. 04/28/2024 09:56 AM 6.2 see below % Final 09/10/2023 11:31 AM 6.4 see below % Final 04/15/2023 12:00 AM 6.1 % LDLCALC Date/Time Value Ref Range Status 10/13/2024 10:41 AM 15 mg/dL (calc) Final Comment: Reference range: <100 Desirable range <100 mg/dL for primary prevention; <70 mg/dL for patients with CHD or diabetic patients with > or = 2 CHD risk factors. LDL-C is now calculated using the Damien-Jose L calculation, which is a validated novel method providing better accuracy than the Friedewald equation in the estimation of LDL-C. Damien SS et al. LEE. 2013;310(19): 6268-9011 (http://education.Kay[employer] technology/faq/NVE594) 04/28/2024 09:56 AM 12 <=99 mg/dL Final Comment: Near Borderline AGE Desirable Optimal High High Very High 0-19 Y 0 - 109 --- 110-129 >/= 130 ---- 20-24 Y 0 - 119 --- 120-159 >/= 160 ---- >24 Y 0 - 99 100-129 130-159 160-189 >/=190 VLDL Date/Time Value Ref Range Status 04/28/2024 09:56 AM 14 0 - 40 mg/dL Final Patient Medications: Encounter Medications[7] Physical Exam: General: alert, oriented and in no acute distress HEENT: NC/AT; EOMI; PERRLA, external ear is normal Neck: supple; trachea midline; no masses; no JVD Chest: clear breath sounds bilaterally; no wheezing Cardio: regular rhythm, S1S2 normal, no murmurs Abdomen: Soft, non-tender, non-distension, no organomegaly Extremities: no clubbing/cyanosis/edema Neuro: Grossly intact Psychiatric: Normal mood and affect Past Cardiology Results (Last 3 Years): EKG: ECG 12 lead (Ancillary Performed) 09/21/2023 Electrocardiogram, 12-lead PRN ACS symptoms 2023 Electrocardiogram, 12-lead PRN ACS symptoms 2023 ECG 12 lead 07/29/2023 Echo: Echo Results: No results found for this or any previous visit from the past 365 days. Cath: Cardiac catheterization - coronary 07/29/2023 CV NCDR CATHPCI V5 COLLECTION FORM Stress Test: Nuclear Stress Test 05/31/2023 Cardiac Imaging: No results found for this or any previous visit from the past 1095 days. Assessment/Plan In summary, Mr. Mackey is a 79-year-old non-smoker diabetic male with prior medical history significant for Coronary Artery Disease status post ostial RCA stent (2018), hypertension, hyperlipidemia, type 2 diabetes mellitus, severe ETHAN on CPAP, lumbosacral spondylosis, neurogenic claudication due to chronic lumbar spinal stenosis, hypothyroidism. He is currently feeling fine and is very active, however he endorses chest pain and some shortness of breath every time he exercises too much. His chest pain is pressure in nature, in the upper chest, gets worse with exercises, improves after a few minutes after resting. He denies palpitations, leg edema, lightheadedness, headaches, fever, chills, orthopnea, paroxysmal nocturnal dyspnea or syncope. # Coronary Artery Disease status post CABG x4 and LAAC (Dr. Malagon, 09/13/2023) / S/P ostial RCA stent / Stable Angina on exertion 1. Midline sternotomy 2. On-pump coronary artery bypass grafting x 4 TAI to LAD Radial artery to OM1 SVG sequentially to OM 2 and PDA 3. Left atrial appendage clip with AtriClip number 45 mm 4. Endoscopic harvesting of the left radial artery 5. Endoscopic harvesting of the greater saphenous vein - Patient endorses chest pain and some shortness of breath every time he exercises too much. His chest pain is pressure in nature, in the upper chest, gets worse with exercises, improves after a few minutes after resting and with nitroglycerin. - The EKG showed normal sinus rhythm with old LBBB and no signs of ACS. - Patient underwent nuclear stress test on 05/31/2023, showin. 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 2. The left ventricle is normal in size. 3. Decreased LV wall motion in the basal lateral wall with an LV EF estimated at 63%. - [facility] (05/29/2023): 1. Right coronary artery system dominance. 2. Multivessel Coronary Artery Disease involving Left Main. 3. Distal LM 60% calcified lesion. 4. Prox LAD 70% calcified lesion. 5. Mid LCx, ostial 1st OM, sotial 2nd OM subocclusive 99% disease. 6. Patent stent to ostial RCA. 7. Prox-mid PDA 70% lesion (small vessel). - He had been complaining of excessive bruising on ASA and Clopidogrel previously. Improvement by stopping Clopidogrel, compliant with ASA. - Keep current medications include aspirin 81 mg, atorvastatin 40 mg, Toprol 100 mg, isosorbide 60 mg daily. - Follow up yearly. # Hypertension - Controlled BP - Keep Lisinopril 10mg daily, Metoprolol succinate 100mg daily # Type 2 diabetes mellitus - Controlled by PCP - Keep Glipizide 5mg daily # Hyperlipidemia - Controlled by PCP - Keep Atorvastatin 80mg daily. # Severe ETHAN - Keep CPAP # Hypothyroidism - Keep Levothyroxine 200mcg daily We have discussed the most common side effects of the prescribed medications, indications, drug interactions, risks, complications, and alternatives of medications/therapeutics were explained and discussed. The patient has been requested to monitor closely for any untoward side effects or complications of medications. The patient has been strongly advised to be compliant with the recommendations,all the questions and concerns have been addressed. The patient has been also instructed to call, to return sooner or to go to the emergency department if symptoms persist or get worsen. The patient voiced understanding and denies any further questions at this time. This note was transcribed using the [employer] Dict[employer] system. There may be grammatical, punctuation,or verbiage errors that occur with voice recognition programs. Thank you, Dr. Sanchez, for allowing me to participate in the care of this patient. Please reach me out if you have any questions or if you need any clarifications regarding the patient's care. Broderick Garcia MD, PhD Cardiology [1] Past Medical History: Diagnosis Date Diabetes mellitus (Multi) Hyperlipidemia Hypertension [2] Past Surgical History: Procedure Laterality Date CARDIAC CATHETERIZATION N/A 07/29/2023 Procedure: Left Heart Cath; Surgeon: Broderick Garcia MD; Location: [facility] Cardiac Public Health Clinical Nurse Specialist;Service: Cardiovascular; Laterality: N/A; OTHER SURGICAL HISTORY 06/01/2019 Kidney surgery OTHER SURGICAL HISTORY 06/01/2019 Cardiac catheterization OTHER SURGICAL HISTORY 06/01/2019 Colonoscopy OTHER SURGICAL HISTORY 06/01/2019 Epidural steroid injection OTHER SURGICAL HISTORY 06/01/2019 Epidural steroid injection OTHER SURGICAL HISTORY 06/01/2019 Epidural steroid injection OTHER SURGICAL HISTORY 06/01/2019 Epidural steroid injection OTHER SURGICAL HISTORY 06/01/2019 Epidural steroid injection OTHER SURGICAL HISTORY 06/01/2019 Intra-articular corticosteroid injection OTHER SURGICAL HISTORY 06/01/2019 Intra-articular corticosteroid injection OTHER SURGICAL HISTORY 06/01/2019 Esophagogastroduodenoscopy OTHER SURGICAL HISTORY 06/01/2019 Epidural steroid injection OTHER SURGICAL HISTORY 06/27/2019 Thyroid biopsy [3] Family History Problem Relation Name Age of Onset Diabetes Mother Heart disease Mother Heart attack Mother Cancer Father Diabetes Father Liver cancer Sister Cancer Brother Alcohol abuse Brother [4] Allergies Allergen Reactions Oxycodone Hallucinations [5] Social History Socioeconomic History Marital status: Tobacco Use Smoking status: Never Passive exposure: Never Smokeless tobacco: Never Vaping Use Vaping status: Never Used Substance and Sexual Activity Alcohol use: Not Currently Drug use: Never Social Drivers of Health Financial Resource Strain: Low Risk (09/13/2023) Overall Financial Resource Strain (CARDIA) Difficulty of Paying Living Expenses: Not hard at all Food Insecurity: No Food Insecurity (08/24/2023) Hunger Vital Sign Worried About Running Out of Food in the Last Year: Never true Ran Out of Food in the Last Year: Never true Transportation Needs: No Transportation Needs (10/13/2023) OASIS A1250: Transportation Lack of Transportation (Medical): No Lack of Transportation (Non-Medical): No Patient Unable or Declines to Respond: No Social Connections: Feeling Socially Integrated (10/13/2023) OASIS D0700: Social Isolation Frequency of experiencing loneliness or isolation: Never Recent Concern: Social Connections - Feeling Somewhat Isolated (09/21/2023) OASIS D0700: Social Isolation Frequency of experiencing loneliness or isolation: Sometimes Housing Stability: Low Risk (09/13/2023) Housing Stability Vital Sign Unable to Pay for Housing in the Last Year: No Number of Places Lived in the Last Year: 1 Unstable Housing in the Last Year: No [6] Social History Tobacco Use Smoking Status Never Passive exposure: Never Smokeless Tobacco Never [7] Outpatient Encounter Medications as of 01/30/2025 Medication Sig Dispense Refill acetaminophen (Tylenol) 325 mg tablet Take 3 tablets (975 mg) by mouth every 6 hours. aspirin 81 mg EC tablet Take 1 tablet (81 mg) by mouth once daily. atorvastatin (Lipitor) 80 mg tablet TAKE 1 TABLET BY MOUTH EVERY NIGHT AT BEDTIME 90 tablet 1 cholecalciferol (Vitamin D-3) 50 MCG (2000 UT) tablet Take 1 tablet (2,000 Units) by mouth 2 times a day. cyanocobalamin (Vitamin B-12) 1,000 mcg tablet Take 1 tablet (1,000 mcg) by mouth once daily. EPINEPHrine (Epipen) 0.3 mg/0.3 mL injection syringe Inject 0.3 mL (0.3 mg) into the muscle 1 time if needed for anaphylaxis for up to 1 dose. Call 911 after use. 1 each 1 finasteride (Proscar) 5 mg tablet Take 1 tablet (5 mg) by mouth once daily. 90 tablet 1 glipiZIDE (Glucotrol) 5 mg tablet TAKE 1 TABLET BY MOUTH 2 TIMES A DAY 180 tablet 1 isosorbide mononitrate ER (Imdur) 30 mg 24 hr tablet TAKE 1 TABLET BY MOUTH DAILY 90 tablet 3 levothyroxine (Synthroid) 175 mcg tablet Take 1 tablet (175 mcg) by mouth early in the morning.. 90tablet 1 magnesium oxide (Mag-Ox) 420 mg tablet Take 1 tablet (420 mg) by mouth 3 times a day. (Patient taking differently: Take 2 tablets (840 mg) by mouth 2 times a day.) metFORMIN XR 500 mg 24 hr tablet TAKE 1 TABLET BY MOUTH 2 TIMES A DAY 180 tablet 0 metoprolol succinate XL (Toprol-XL) 100 mg 24 hr tablet Take 1 tablet (100 mg) by mouth once daily at bedtime. 90 tablet 1 tamsulosin (Flomax) 0.4 mg 24 hr capsule TAKE 1 CAPSULE BY MOUTH DAILY 90 capsule 1 [DISCONTINUED] isosorbide mononitrate ER (Imdur) 30 mg 24 hr tablet Take 1 tablet (30 mg) by mouth once daily. 90 tablet 3 No facility-administered encounter medications on file as of 01/30/2025. [facility]: 1(884) 496-293906-17-2025 Evaluation note* Diagnosis Routine general medical examination at health care facility- Primary Routine general medical examination at a health care facility Stage 3a chronic kidney disease (Multi) Type 2 diabetes mellitus with other circulatory complication, without long-term current use of insulin Atherosclerosis of [place] coronary artery of [place] heart, unspecified whether angina present Hyperlipidemia, unspecified hyperlipidemia type Hypothyroidism, unspecified type HTN (hypertension), benign Essential hypertension, benign Hx of CABG- Primary Postsurgical aortocoronary bypass status Irregular heart beat Unspecified cardiac dysrhythmia 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 Hypothyroidism, unspecified type Atherosclerosis Shortness of breath on exertion Shortness of breath Coronary angioplasty status Coronary artery disease involving [place] coronary artery of [place] heart with unstable angina pectoris Chronic ischemic heart disease Unspecified chronic ischemic heart disease documented in this encounter [facility] Work Phone: 1([phone]) 517-884803-04-2025 Evaluation + Plan note* Assessment & Plan Note - Zahra Sanchez MD - 10/17/2024 1:00 PM ESTAssociated Problem(s): Stage 3 chronic kidney disease (Multi) Orders: Albumin-Creatinine Ratio, Urine Random; Future CBC and Auto Differential; Future Comprehensive Metabolic Panel; Future Hemoglobin A1C; Future Lipid Panel; Future TSH with reflex to Free T4 if abnormal; Future Vitamin B12; Future Follow Up In Primary Care - Established; Future [facility] Work Phone: [phone]) 838-569003-04-2025 Evaluation + Plan note* Assessment & Plan Note - Zahra Sanchez MD - 10/17/2024 1:00 PM ESTAssociated Problem(s): Diabetes mellitus (Multi) Orders: Albumin-Creatinine Ratio, Urine Random; Future CBC and Auto Differential; Future Comprehensive Metabolic Panel; Future Hemoglobin A1C; Future Lipid Panel; Future TSH with reflex to Free T4 if abnormal; Future Vitamin B12; Future Follow Up In Primary Care - Established; Future [facility] Work Phone: [phone]) [phone] Evaluation + Plan note* Assessment & Plan Note - Zahra Sanchez MD - 10/17/2024 1:00 PM ESTAssociated Problem(s): Coronary atherosclerosis Orders: Albumin-Creatinine Ratio, Urine Random; Future CBC and Auto Differential; Future Comprehensive Metabolic Panel; Future Hemoglobin A1C; Future Lipid Panel; Future TSH with reflex to Free T4 if abnormal; Future Vitamin B12; Future Follow Up In Primary Care - Established; Future [facility] Work Phone: [phone]) [phone] Evaluation + Plan note* Assessment & Plan Note - Zahra Sanchez MD - 10/17/2024 1:00 PM ESTAssociated Problem(s): Hyperlipidemia Orders: Albumin-Creatinine Ratio, Urine Random; Future CBC and Auto Differential; Future Comprehensive Metabolic Panel; Future Hemoglobin A1C; Future Lipid Panel; Future TSH with reflex to Free T4 if abnormal; Future Vitamin B12; Future Follow Up In Primary Care - Established; Future [facility] Work Phone: [phone]) [phone] Evaluation + Plan note* Assessment & Plan Note - Zahra Sanchez MD - 10/17/2024 1:00 PM ESTAssociated Problem(s): Hypothyroidism Orders: Albumin-Creatinine Ratio, Urine Random; Future CBC and Auto Differential; Future Comprehensive Metabolic Panel; Future Hemoglobin A1C; Future Lipid Panel; Future TSH with reflex to Free T4 if abnormal; Future Vitamin B12; Future Follow Up In Primary Care - Established; Future [facility] Work Phone: [phone]) 590-413803-04-2025 Evaluation + Plan note* Assessment & Plan Note - Zahra Sanchez MD - 10/17/2024 1:00 PM ESTAssociated Problem(s): HTN (hypertension), benign Orders: Albumin-Creatinine Ratio, Urine Random; Future CBC and Auto Differential; Future Comprehensive Metabolic Panel; Future Hemoglobin A1C; Future Lipid Panel; Future TSH with reflex to Free T4 if abnormal; Future Vitamin B12; Future Follow Up In Primary Care - Established; Future [facility] Work Phone: [phone]) 436-527903-04-2025 History of Present illness Narrative* Zahra Sanchez MD - 10/17/2024 1:00 PM EST Subjective Reason for Visit: Ruth Mackey is an 79 y.o. male here for a Medicare Wellness visit. Past Medical, Surgical, and Family History reviewed and updated in chart. Reviewed all medications by prescribing practitioner or clinical pharmacist (such as prescriptions,OTCs, herbal therapies and supplements) and documented in the medical record. Here for follow up HTN, high chol, CAD, s/p stents 2017, ischemic heart disease, CABG 2023 (Dr Garcia, Dr Malagon), DM, ETHAN (not tolerant of CPAP), hypothyroidism. He states that overall he is doing pretty well. He states that he stopped melatonin as he felt he was pretty sleepy the next day. He does have someissues with excessive fatigue during, he has known sleep apnea, is not able to tolerate CPAP. We discussed some other options including a mouth guard - he states that he is seeing his dentist soon and will discuss with him. Also discussed sleeping on his side instead of flat on his back. He states that [facility] and will be [facility] a doctor [facility] for that. Wediscussed that he could try some Voltaren gel OTC prn. Advance directives:. Advanced Care Planning discussed and documented advance care plan or surrogatedecision maker documented in the medical record. Patient has living will. Patient has healthcare POA. Patient Care Team: Zahra Sanchez MD as PCP - General (Family Medicine) Zahra Sanchez MD as PCP - O Medicare Advantage PCP Broderick Garcia MD as Consulting Physician (Cardiology) Jose Carlos Malagon MD as Surgeon (Cardiothoracic Surgery) Objective Vitals: BP 124/72 Pulse 69 Ht 1.702 m (5' 7.01) Wt 92.9 kg (204 lb 11.2 oz) SpO2 96% BMI 32.05 kg/m Physical Exam Vitals reviewed. Constitutional: General: He is not in acute distress. Cardiovascular: Rate and Rhythm: Normal rate and regular rhythm. Heart sounds: No murmur heard. Pulmonary: Effort: Pulmonary effort is normal. No respiratory distress. Breath sounds: Normal breath sounds. Skin: General: Skin is warm and dry. Neurological: General: No focal deficit present. Mental Status: He is alert. Mental status is at baseline. Latest Reference Range & Units 10/13/24 10:41 GLUCOSE 65 - 99 mg/dL 170 (H) SODIUM 135 - 146 mmol/L 139 POTASSIUM 3.5 - 5.3 mmol/L 4.1 CHLORIDE 98 - 110 mmol/L 102 CARBON DIOXIDE 20 - 32 mmol/L 31 ELECTROLYTE BALANCE 7 - 17 mmol/L (calc) 6 (L) UREA NITROGEN (BUN) 7 - 25 mg/dL 26 (H) CREATININE 0.70 - 1.28 mg/dL 1.47 (H) EGFR > OR = 60 mL/min/1.73m2 49 (L) CALCIUM 8.6 - 10.3 mg/dL 9.4 ALBUMIN 3.6 - 5.1 g/dL 4.1 PROTEIN, TOTAL 6.1 - 8.1 g/dL 6.6 ALKALINE PHOSPHATASE 35 - 144 U/L 52 ALT 9 - 46 U/L 14 AST 10 - 35 U/L 12 BILIRUBIN, TOTAL 0.2 - 1.2 mg/dL 1.7 (H) CHOLESTEROL, TOTAL <200 mg/dL 74 HDL CHOLESTEROL > OR = 40 mg/dL 43 CHOL/HDLC RATIO <5.0 (calc) 1.7 LDL-CHOLESTEROL mg/dL (calc) 15 TRIGLYCERIDES <150 mg/dL 78 NON HDL CHOLESTEROL <130 mg/dL (calc) 31 VITAMIN B12 200 - 1,100 pg/mL 936 HEMOGLOBIN A1c <5.7 % of total Hgb 7.0 (H) eAG (mg/dL) mg/dL 154 eAG (mmol/L) mmol/L 8.5 TSH 0.40 - 4.50 mIU/L 3.40 WHITE BLOOD CELL COUNT 3.8 - 10.8 Thousand/uL 5.6 RED BLOOD CELL COUNT 4.20 - 5.80 Million/uL 3.95 (L) HEMOGLOBIN 13.2 - 17.1 g/dL 12.8 (L) HEMATOCRIT 38.5 - 50.0 % 38.9 MCV 80.0 - 100.0 fL 98.5 MCH 27.0 - 33.0 pg 32.4 MCHC 32.0 - 36.0 g/dL 32.9 RDW 11.0 - 15.0 % 12.7 PLATELET COUNT 140 - 400 Thousand/uL 233 MPV 7.5 - 12.5 fL 10.6 ABSOLUTE NEUTROPHILS 1,500 - 7,800 cells/uL 3,494 ABSOLUTE LYMPHOCYTES 850 - 3,900 cells/uL 1,159 ABSOLUTE MONOCYTES 200 - 950 cells/uL 515 ABSOLUTE EOSINOPHILS 15 - 500 cells/uL 403 ABSOLUTE BASOPHILS 0 - 200 cells/uL 28 NEUTROPHILS % 62.4 LYMPHOCYTES % 20.7 MONOCYTES % 9.2 EOSINOPHILS % 7.2 BASOPHILS % 0.5 CREATININE, RANDOM URINE 20 - 320 mg/dL 146 ALBUMIN/CREATININE RATIO, RANDOM URINE <30 mg/g creat 11 ALBUMIN, URINE See Note: mg/dL 1.6 (H): Data is abnormally high (L): Data is abnormally low Assessment & Plan Routine general medical examination at health care facility Stage 3a chronic kidney disease (Multi) Orders: Albumin-Creatinine Ratio, Urine Random; Future CBC and Auto Differential; Future Comprehensive Metabolic Panel; Future Hemoglobin A1C; Future Lipid Panel; Future TSH with reflex to Free T4 if abnormal; Future Vitamin B12; Future Follow Up In Primary Care - Established; Future Type 2 diabetes mellitus with other circulatory complication, without long-term current use of insulin Orders: Albumin-Creatinine Ratio, Urine Random; Future CBC and Auto Differential; Future Comprehensive Metabolic Panel; Future Hemoglobin A1C; Future Lipid Panel; Future TSH with reflex to Free T4 if abnormal; Future Vitamin B12; Future Follow Up In Primary Care - Established; Future Atherosclerosis of [place] coronary artery of [place] heart, unspecified whether angina present Orders: Albumin-Creatinine Ratio, Urine Random; Future CBC and Auto Differential; Future Comprehensive Metabolic Panel; Future Hemoglobin A1C; Future Lipid Panel; Future TSH with reflex to Free T4 if abnormal; Future Vitamin B12; Future Follow Up In Primary Care - Established; Future Hyperlipidemia, unspecified hyperlipidemia type Orders: Albumin-Creatinine Ratio, Urine Random; Future CBC and Auto Differential; Future Comprehensive Metabolic Panel; Future Hemoglobin A1C; Future Lipid Panel; Future TSH with reflex to Free T4 if abnormal; Future Vitamin B12; Future Follow Up In Primary Care - Established; Future Hypothyroidism, unspecified type Orders: Albumin-Creatinine Ratio, Urine Random; Future CBC and Auto Differential; Future Comprehensive Metabolic Panel; Future Hemoglobin A1C; Future Lipid Panel; Future TSH with reflex to Free T4 if abnormal; Future Vitamin B12; Future Follow Up In Primary Care - Established; Future HTN (hypertension), benign Orders: Albumin-Creatinine Ratio, Urine Random; Future CBC and Auto Differential; Future Comprehensive Metabolic Panel; Future Hemoglobin A1C; Future Lipid Panel; Future TSH with reflex to Free T4 if abnormal; Future Vitamin B12; Future Follow Up In Primary Care - Established; Future documented in this [facility] Work Phone: [phone] 603-115103-04-2025 Instructions* Patient Instructions* Zahra Sanchez MD - 10/17/2024 1:00 PM EST Continue current medications. Follow up with specialists as scheduled. Follow up in 6 months, sooner if needed. documented in this [facility] Work Phone: [phone]) 694-848503-04-2025 Miscellaneous Notes* Assessment & Plan Note - Zahra Sanchez MD - 10/17/2024 1:00 PM ESTAssociated Problem(s): Stage 3 chronic kidney disease (Multi) Orders: Albumin-Creatinine Ratio, Urine Random; Future CBC and Auto Differential; Future Comprehensive Metabolic Panel; Future Hemoglobin A1C; Future Lipid Panel; Future TSH with reflex to Free T4 if abnormal; Future Vitamin B12; Future Follow Up In Primary Care - Established; Future * Assessment & Plan Note - Zahra Sanchez MD - 10/17/2024 1:00 PM EST Associated Problem(s): Diabetes mellitus (Multi) Orders: Albumin-Creatinine Ratio, Urine Random; Future CBC and Auto Differential; Future Comprehensive Metabolic Panel; Future Hemoglobin A1C; Future Lipid Panel; Future TSH with reflex to Free T4 if abnormal; Future Vitamin B12; Future Follow Up In Primary Care - Established; Future * Assessment & Plan Note - Zahra Sanchez MD - 10/17/2024 1:00 PM EST Associated Problem(s): Coronary atherosclerosis Orders: Albumin-Creatinine Ratio, Urine Random; Future CBC and Auto Differential; Future Comprehensive Metabolic Panel; Future Hemoglobin A1C; Future Lipid Panel; Future TSH with reflex to Free T4 if abnormal; Future Vitamin B12; Future Follow Up In Primary Care - Established; Future * Assessment & Plan Note - Zahra Sanchez MD - 10/17/2024 1:00 PM EST Associated Problem(s): Hyperlipidemia Orders: Albumin-Creatinine Ratio, Urine Random; Future CBC and Auto Differential; Future Comprehensive Metabolic Panel; Future Hemoglobin A1C; Future Lipid Panel; Future TSH with reflex to Free T4 if abnormal; Future Vitamin B12; Future Follow Up In Primary Care - Established; Future * Assessment & Plan Note - Zahra Sanchez MD - 10/17/2024 1:00 PM EST Associated Problem(s): Hypothyroidism Orders: Albumin-Creatinine Ratio, Urine Random; Future CBC and Auto Differential; Future Comprehensive Metabolic Panel; Future Hemoglobin A1C; Future Lipid Panel; Future TSH with reflex to Free T4 if abnormal; Future Vitamin B12; Future Follow Up In Primary Care - Established; Future * Assessment & Plan Note - Zahra Sanchez MD - 10/17/2024 1:00 PM EST Associated Problem(s): HTN (hypertension), benign Orders: Albumin-Creatinine Ratio, Urine Random; Future CBC and Auto Differential; Future Comprehensive Metabolic Panel; Future Hemoglobin A1C; Future Lipid Panel; Future TSH with reflex to Free T4 if abnormal; Future Vitamin B12; Future Follow Up In Primary Care - Established; [facility]: [phone] Evaluation note* Diagnosis Routine general medical examination at health care facility- Primary Routine general medical examination at a health care facility Stage 3a chronic kidney disease (Multi) Type 2 diabetes mellitus with other circulatory complication, without long-term current use of insulin Atherosclerosis of [place] coronary artery of [place] heart, unspecified whether angina present Hyperlipidemia, unspecified hyperlipidemia type Hypothyroidism, unspecified type HTN (hypertension), benign Essential hypertension, benign documented in this encounter [facility] Work Phone: [phone]) 995-367512-17-2024 History of Present illness Narrative* Broderick Garcia MD - 08/01/2024 3:00 PM EST Chief Complaint Patient presents with 6 month f/u HPI: I was requested by Dr. Sanchez to evaluate this patient in consultation for cardiac assessment. Patient 78-year-old non-smoker diabetic male with prior medical history significant for Coronary Artery Disease status post ostial RCA stent (2018), hypertension, hyperlipidemia, type 2 diabetes mellitus, severe ETHAN on CPAP, lumbosacral spondylosis, neurogenic claudication due to chronic lumbar spinal stenosis, hypothyroidism. He is currently feeling fine and is very active, however he endorses chest pain and some shortness of breath every time he exercises too much. His chest pain is pressure in nature, in the upper chest, gets worse with exercises, improves after a few minutes after resting. He denies palpitations, leg edema, lightheadedness, headaches, fever, chills, orthopnea, paroxysmal nocturnal dyspnea or syncope. The EKG today shows normal sinus rhythm with no signs of ACS. He is still complaining of chest pain and shortness of breath for extra-habitual exertion. He states that it is relief with resting and nitroglycerin. Patient underwent nuclear stress test on 05/31/2023, showin. 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 2. The left ventricle is normal in size. 3. Decreased LV wall motion in the basal lateral wall with an LV EF estimated at 63%. Previously complaining of excessive bruising on ASA and Clopidogrel. Patient returns today stating that is asymptomatic from the cardiovascular standpoint and feeling fine. Has been compliant to the medication. Denies chest pain, shortness of breath, palpitations, legedema, lightheadedness, headaches, fever, chills, orthopnea, paroxysmal nocturnal dyspnea or syncope. Past Medical History Past Medical History: Diagnosis Date Diabetes mellitus (Multi) Hyperlipidemia Hypertension Past Surgical History Past Surgical History: Procedure Laterality Date CARDIAC CATHETERIZATION N/A 07/29/2023 Procedure: Left Heart Cath; Surgeon: Brodercik Garcia MD; Location: [facility] Cardiac Public Health Clinical Nurse Specialist;Service: Cardiovascular; Laterality: N/A; OTHER SURGICAL HISTORY 06/01/2019 Kidney surgery OTHER SURGICAL HISTORY 06/01/2019 Cardiac catheterization OTHER SURGICAL HISTORY 06/01/2019 Colonoscopy OTHER SURGICAL HISTORY 06/01/2019 Epidural steroid injection OTHER SURGICAL HISTORY 06/01/2019 Epidural steroid injection OTHER SURGICAL HISTORY 06/01/2019 Epidural steroid injection OTHER SURGICAL HISTORY 06/01/2019 Epidural steroid injection OTHER SURGICAL HISTORY 06/01/2019 Epidural steroid injection OTHER SURGICAL HISTORY 06/01/2019 Intra-articular corticosteroid injection OTHER SURGICAL HISTORY 06/01/2019 Intra-articular corticosteroid injection OTHER SURGICAL HISTORY 06/01/2019 Esophagogastroduodenoscopy OTHER SURGICAL HISTORY 06/01/2019 Epidural steroid injection OTHER SURGICAL HISTORY 06/27/2019 Thyroid biopsy Past Family History Family History Problem Relation Name Age of Onset Diabetes Mother Heart disease Mother Heart attack Mother Cancer Father Diabetes Father Liver cancer Sister Cancer Brother Alcohol abuse Brother Allergy History Allergies Allergen Reactions Oxycodone Hallucinations Past Social History Social History Socioeconomic History Marital status: Tobacco Use Smoking status: Never Passive exposure: Never Smokeless tobacco: Never Vaping Use Vaping status: Never Used Substance and Sexual Activity Alcohol use: Not Currently Drug use: Never Social Drivers of Health Financial Resource Strain: Low Risk (09/13/2023) Overall Financial Resource Strain (CARDIA) Difficulty of Paying Living Expenses: Not hard at all Food Insecurity: No Food Insecurity (08/24/2023) Hunger Vital Sign Worried About Running Out of Food in the Last Year: Never true Ran Out of Food in the Last Year: Never true Transportation Needs: No Transportation Needs (10/13/2023) OASIS A1250: Transportation Lack of Transportation (Medical): No Lack of Transportation (Non-Medical): No Patient Unable or Declines to Respond: No Social Connections: Feeling Socially Integrated (10/13/2023) OASIS D0700: Social Isolation Frequency of experiencing loneliness or isolation: Never Recent Concern: Social Connections - Feeling Somewhat Isolated (09/21/2023) OASIS D0700: Social Isolation Frequency of experiencing loneliness or isolation: Sometimes Housing Stability: Low Risk (09/13/2023) Housing Stability Vital Sign Unable to Pay for Housing in the Last Year: No Number of Places Lived in the Last Year: 1 Unstable Housing in the Last Year: No Social History Tobacco Use Smoking Status Never Passive exposure: Never Smokeless Tobacco Never Objective Data: Last Recorded Vitals: Vitals: 08/01/24 1449 BP: 108/60 Pulse: 67 SpO2: 97% Weight: 93.9 kg (207 lb) Last Labs: CBC - 04/28/2024: 9:56 AM 6.5 13.5 237 43.3 CMP - 04/28/2024: 9:56 AM 9.5 6.6 15 --- 1.2 3.6 4.2 16 62 PTT - 09/13/2023: 12:49 PM 1.3 14.9 30 HGBA1C Date/Time Value Ref Range Status 04/28/2024 09:56 AM 6.2 see below % Final 09/10/2023 11:31 AM 6.4 see below % Final 04/15/2023 12:00 AM 6.1 % LDLCALC Date/Time Value Ref Range Status 04/28/2024 09:56 AM 12 <=99 mg/dL Final Comment: Near Borderline AGE Desirable Optimal High High Very High 0-19 Y 0 - 109 --- 110-129 >/= 130 ---- 20-24 Y 0 - 119 --- 120-159 >/= 160 ---- >24 Y 0 - 99 100-129 130-159 160-189 >/=190 VLDL Date/Time Value Ref Range Status 04/28/2024 09:56 AM 14 0 - 40 mg/dL Final Patient Medications: Outpatient Encounter Medications as of 08/01/2024 Medication Sig Dispense Refill acetaminophen (Tylenol) 325 mg tablet Take 3 tablets (975 mg) by mouth every 6 hours. aspirin 81 mg EC tablet Take 1 tablet (81 mg) by mouth once daily. atorvastatin (Lipitor) 80 mg tablet Take 1 tablet (80 mg) by mouth once daily at bedtime. 90 tablet1 cholecalciferol (Vitamin D-3) 50 MCG (2000 UT) tablet Take 1 tablet (2,000 Units) by mouth 2 times a day. cyanocobalamin (Vitamin B-12) 1,000 mcg tablet Take 1 tablet (1,000 mcg) by mouth once daily. EPINEPHrine (Epipen) 0.3 mg/0.3 mL injection syringe Inject 0.3 mL (0.3 mg) into the muscle 1 time if needed for anaphylaxis for up to 1 dose. Call 911 after use. 1 each 1 finasteride (Proscar) 5 mg tablet Take 1 tablet (5 mg) by mouth once daily. 90 tablet 1 glipiZIDE (Glucotrol) 5 mg tablet Take 1 tablet (5 mg) by mouth 2 times a day. 180 tablet 1 isosorbide mononitrate ER (Imdur) 30 mg 24 hr tablet Take 1 tablet (30 mg) by mouth once daily. 90 tablet 3 levothyroxine (Synthroid) 175 mcg tablet Take 1 tablet (175 mcg) by mouth early in the morning.. 90tablet 1 magnesium oxide (Mag-Ox) 420 mg tablet Take 1 tablet (420 mg) by mouth 3 times a day. (Patient taking differently: Take 2 tablets (840 mg) by mouth 2 times a day.) metFORMIN XR 500 mg 24 hr tablet TAKE 1 TABLET BY MOUTH 2 TIMES A DAY 180 tablet 0 metoprolol succinate XL (Toprol-XL) 100 mg 24 hr tablet Take 1 tablet (100 mg) by mouth once daily at bedtime. 90 tablet 1 tamsulosin (Flomax) 0.4 mg 24 hr capsule Take 1 capsule (0.4 mg) by mouth once daily. (Patient taking differently: Take 1 capsule (0.4 mg) by mouth 2 times a day.) 90 capsule 1 hydrOXYzine HCL (Atarax) 25 mg tablet Take 1 tablet (25 mg) by mouth every 8 hours if needed for itching for up to 10 days. 30 tablet 0 No facility-administered encounter medications on file as of 08/01/2024. Physical Exam: General: alert, oriented and in no acute distress HEENT: NC/AT; EOMI; PERRLA, external ear is normal Neck: supple; trachea midline; no masses; no JVD Chest: clear breath sounds bilaterally; no wheezing Cardio: regular rhythm, S1S2 normal, no murmurs Abdomen: Soft, non-tender, non-distension, no organomegaly Extremities: no clubbing/cyanosis/edema Neuro: Grossly intact Psychiatric: Normal mood and affect Past Cardiology Results (Last 3 Years): EKG: ECG 12 lead (Ancillary Performed) 09/21/2023 Electrocardiogram, 12-lead PRN ACS symptoms 2023 Electrocardiogram, 12-lead PRN ACS symptoms 2023 ECG 12 lead 07/29/2023 Echo: Echo Results: Adult Congenital Transthoracic Echo (TTE) Complete Cath: Cardiac catheterization - coronary 07/29/2023 CV NCDR CATHPCI V5 COLLECTION FORM Stress Test: Nuclear Stress Test 05/31/2023 Cardiac Imaging: No results found for this or any previous visit from the past 1095 days. Assessment/Plan In summary, Mr. Mackey is a 78-year-old non-smoker diabetic male with prior medical history significant for Coronary Artery Disease status post ostial RCA stent (2018), hypertension, hyperlipidemia, type 2 diabetes mellitus, severe ETHAN on CPAP, lumbosacral spondylosis, neurogenic claudication due to chronic lumbar spinal stenosis, hypothyroidism. He is currently feeling fine and is very active, however he endorses chest pain and some shortness of breath every time he exercises too much. His chest pain is pressure in nature, in the upper chest, gets worse with exercises, improves after a few minutes after resting. He denies palpitations, leg edema, lightheadedness, headaches, fever, chills, orthopnea, paroxysmal nocturnal dyspnea or syncope. # Coronary Artery Disease status post CABG x4 and LAAC (Dr. Malagon, 09/13/2023) / S/P ostial RCA stent / Stable Angina on exertion 1. Midline sternotomy 2. On-pump coronary artery bypass grafting x 4 TAI to LAD Radial artery to OM1 SVG sequentially to OM 2 and PDA 3. Left atrial appendage clip with AtriClip number 45 mm 4. Endoscopic harvesting of the left radial artery 5. Endoscopic harvesting of the greater saphenous vein - Patient endorses chest pain and some shortness of breath every time he exercises too much. His chest pain is pressure in nature, in the upper chest, gets worse with exercises, improves after a few minutes after resting and with nitroglycerin. - The EKG showed normal sinus rhythm with no signs of ACS. - Patient underwent nuclear stress test on 05/31/2023, showin. 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 2. The left ventricle is normal in size. 3. Decreased LV wall motion in the basal lateral wall with an LV EF estimated at 63%. - [facility] (05/29/2023): 1. Right coronary artery system dominance. 2. Multivessel Coronary Artery Disease involving Left Main. 3. Distal LM 60% calcified lesion. 4. Prox LAD 70% calcified lesion. 5. Mid LCx, ostial 1st OM, sotial 2nd OM subocclusive 99% disease. 6. Patent stent to ostial RCA. 7. Prox-mid PDA 70% lesion (small vessel). - He had been complaining of excessive bruising on ASA and Clopidogrel previously. Improvement by stopping Clopidogrel, compliant with ASA. - Keep current medications include aspirin 81 mg, atorvastatin 40 mg, Toprol 100 mg, isosorbide 60 mg daily. - Follow up in 6 months. # Hypertension - Controlled BP - Keep Lisinopril 10mg daily, Metoprolol succinate 100mg daily # Type 2 diabetes mellitus - Controlled by PCP - Keep Glipizide 5mg daily # Hyperlipidemia - Controlled by PCP - Keep Atorvastatin 80mg daily. # Severe ETHAN - Keep CPAP # Hypothyroidism - Keep Levothyroxine 200mcg daily We have discussed the most common side effects of the prescribed medications, indications, drug interactions, risks, complications, and alternatives of medications/therapeutics were explained and discussed. The patient has been requested to monitor closely for any untoward side effects or complications of medications. The patient has been strongly advised to be compliant with the recommendations,all the questions and concerns have been addressed. The patient has been also instructed to call, to return sooner or to go to the emergency department if symptoms persist or get worsen. The patient voiced understanding and denies any further questions at this time. This note was transcribed using the [employer] system. There may be grammatical, punctuation,or verbiage errors that occur with voice recognition programs. Thank you, Dr. Sanchez, for allowing me to participate in the care of this patient. Please reach me out if you have any questions or if you need any clarifications regarding the patient's care. Broderick Garcia MD, PhD Cardiology documented in this [facility] Work Phone: 1(665) 388-549909-18-2024 History of Present illness Narrative* Zahra Sanchez MD - 05/03/2024 9:20 AM EDT Subjective Ruth Mackey is a 78 y.o. male who presents for Follow-up (6 month). Here for follow up HTN, high chol, CAD, s/p stents 2017, ischemic heart disease, CABG 2023 (Dr Garcia, Dr Malagon), DM, ETHAN on CPAP, hypothyroidism. He states that overall he is doing pretty well. He has occasional issues with dizziness/lightheadedness, especially when first getting up, we discussed making sure he is getting enough water as he admits that he does not drink much. Objective Visit Vitals BP 130/68 Pulse 72 Physical Exam Vitals reviewed. Constitutional: General: He is not in acute distress. Cardiovascular: Rate and Rhythm: Normal rate and regular rhythm. Heart sounds: No murmur heard. Pulmonary: Effort: Pulmonary effort is normal. No respiratory distress. Breath sounds: Normal breath sounds. Skin: General: Skin is warm and dry. Neurological: General: No focal deficit present. Mental Status: He is alert. Mental status is at baseline. Assessment/Plan Problem List Items Addressed This Visit Diabetes mellitus (Multi) - Primary Relevant Orders CBC and Auto Differential Comprehensive Metabolic Panel Hemoglobin A1C Lipid Panel TSH with reflex to Free T4 if abnormal Vitamin B12 HTN (hypertension), benign Relevant Medications metoprolol succinate XL (Toprol-XL) 100 mg 24 hr tablet Other Relevant Orders CBC and Auto Differential Comprehensive Metabolic Panel Hemoglobin A1C Lipid Panel TSH with reflex to Free T4 if abnormal Vitamin B12 Hyperlipidemia Relevant Orders CBC and Auto Differential Comprehensive Metabolic Panel Hemoglobin A1C Lipid Panel TSH with reflex to Free T4 if abnormal Vitamin B12 Hypothyroidism Relevant Orders CBC and Auto Differential Comprehensive Metabolic Panel Hemoglobin A1C Lipid Panel TSH with reflex to Free T4 if abnormal Vitamin B12 Stage 3 chronic kidney disease (Multi) Relevant Orders CBC and Auto Differential Comprehensive Metabolic Panel Hemoglobin A1C Lipid Panel TSH with reflex to Free T4 if abnormal Vitamin B12 Other Visit Diagnoses S/P CABG x 4 Relevant Medications metoprolol succinate XL (Toprol-XL) 100 mg 24 hr tablet Benign prostatic hyperplasia, unspecified whether lower urinary tract symptoms present Relevant Medications finasteride (Proscar) 5 mg tablet Zahra Sanchez MD [facility] Phone: 1(158) 677-406109-18-2024 Instructions* Patient Instructions* Zahra Sanchez MD - 05/03/2024 9:20 AM EDT Increase water intake. Continue current medications. Follow up with specialists as scheduled. Follow up in 6 months, sooner if needed. [facility] Work Phone: 1(861) 784-766006-18-2024 History of Present illness Narrative* Broderick Garcia MD - 02/01/2024 3:00 PM EDT Chief Complaint Patient presents with 6 month follow up HPI: I was requested by Dr. Sanchez to evaluate this patient in consultation for cardiac assessment. Patient 78-year-old non-smoker diabetic male with prior medical history significant for Coronary Artery Disease status post ostial RCA stent (2018), hypertension, hyperlipidemia, type 2 diabetes mellitus, severe ETHAN on CPAP, lumbosacral spondylosis, neurogenic claudication due to chronic lumbar spinal stenosis, hypothyroidism. He is currently feeling fine and is very active, however he endorses chest pain and some shortness of breath every time he exercises too much. His chest pain is pressure in nature, in the upper chest, gets worse with exercises, improves after a few minutes after resting. He denies palpitations, leg edema, lightheadedness, headaches, fever, chills, orthopnea, paroxysmal nocturnal dyspnea or syncope. The EKG today shows normal sinus rhythm with no signs of ACS. He is still complaining of chest pain and shortness of breath for extra-habitual exertion. He states that it is relief with resting and nitroglycerin. Patient underwent nuclear stress test on 05/31/2023, showin. 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 2. The left ventricle is normal in size. 3. Decreased LV wall motion in the basal lateral wall with an LV EF estimated at 63%. Patient returns today stating that he is asymptomatic from the cardiovascular standpoint and that he is feeling fine. He has been complaining of excessive bruising on ASA and Clopidogrel. He has beencompliant to the medication. He denies chest pain, shortness of breath, palpitations, leg edema, lig htheadedness, headaches, fever, chills, orthopnea, paroxysmal nocturnal dyspnea or syncope. Past Medical History Past Medical History: Diagnosis Date Diabetes mellitus (Multi) Hyperlipidemia Hypertension Past Surgical History Past Surgical History: Procedure Laterality Date CARDIAC CATHETERIZATION N/A 07/29/2023 Procedure: Left Heart Cath; Surgeon: Broderick Garcia MD; Location: [facility] Cardiac Public Health Clinical Nurse Specialist;Service: Cardiovascular; Laterality: N/A; OTHER SURGICAL HISTORY 06/01/2019 Kidney surgery OTHER SURGICAL HISTORY 06/01/2019 Cardiac catheterization OTHER SURGICAL HISTORY 06/01/2019 Colonoscopy OTHER SURGICAL HISTORY 06/01/2019 Epidural steroid injection OTHER SURGICAL HISTORY 06/01/2019 Epidural steroid injection OTHER SURGICAL HISTORY 06/01/2019 Epidural steroid injection OTHER SURGICAL HISTORY 06/01/2019 Epidural steroid injection OTHER SURGICAL HISTORY 06/01/2019 Epidural steroid injection OTHER SURGICAL HISTORY 06/01/2019 Intra-articular corticosteroid injection OTHER SURGICAL HISTORY 06/01/2019 Intra-articular corticosteroid injection OTHER SURGICAL HISTORY 06/01/2019 Esophagogastroduodenoscopy OTHER SURGICAL HISTORY 06/01/2019 Epidural steroid injection OTHER SURGICAL HISTORY 06/27/2019 Thyroid biopsy Past Family History Family History Problem Relation Name Age of Onset Diabetes Mother Heart disease Mother Heart attack Mother Cancer Father Diabetes Father Liver cancer Sister Cancer Brother Alcohol abuse Brother Allergy History Allergies Allergen Reactions Oxycodone Hallucinations Past Social History Social History Socioeconomic History Marital status: Spouse name: None Number of children: None Years of education: None Highest education level: None Occupational History None Tobacco Use Smoking status: Never Passive exposure: Never Smokeless tobacco: Never Vaping Use Vaping status: Never Used Substance and Sexual Activity Alcohol use: Not Currently Drug use: Never Sexual activity: None Other Topics Concern None Social History Narrative None Social Determinants of Health Financial Resource Strain: Low Risk (09/13/2023) Overall Financial Resource Strain (CARDIA) Difficulty of Paying Living Expenses: Not hard at all Food Insecurity: No Food Insecurity (08/24/2023) Hunger Vital Sign Worried About Running Out of Food in the Last Year: Never true Ran Out of Food in the Last Year: Never true Transportation Needs: No Transportation Needs (10/13/2023) OASIS A1250: Transportation Lack of Transportation (Medical): No Lack of Transportation (Non-Medical): No Patient Unable or Declines to Respond: No Physical Activity: Not on file Stress: Not on file Social Connections: Feeling Socially Integrated (10/13/2023) OASIS D0700: Social Isolation Frequency of experiencing loneliness or isolation: Never Recent Concern: Social Connections - Feeling Somewhat Isolated (09/21/2023) OASIS D0700: Social Isolation Frequency of experiencing loneliness or isolation: Sometimes Intimate Partner Violence: Not on file Housing Stability: Low Risk (09/13/2023) Housing Stability Vital Sign Unable to Pay for Housing in the Last Year: No Number of Places Lived in the Last Year: 1 Unstable Housing in the Last Year: No Social History Tobacco Use Smoking Status Never Passive exposure: Never Smokeless Tobacco Never Objective Data: Last Recorded Vitals: Vitals: 02/01/24 1502 BP: 126/66 Pulse: 73 SpO2: 97% Weight: 90.7 kg (200 lb) Height: 1.702 m (5' 7) Last Labs: CBC - 09/18/2023: 4:52 AM 8.0 9.3 188 28.2 CMP - 09/18/2023: 4:52 AM 8.8 6.8 16 --- 1.6 3.6 3.3 17 49 PTT - 09/13/2023: 12:49 PM 1.3 14.9 30 HGBA1C Date/Time Value Ref Range Status 09/10/2023 11:31 AM 6.4 see below % Final 04/15/2023 12:00 AM 6.1 % Patient Medications: Outpatient Encounter Medications as of 02/01/2024 Medication Sig Dispense Refill acetaminophen (Tylenol) 325 mg tablet Take 3 tablets (975 mg) by mouth every 6 hours. aspirin 81 mg EC tablet Take 1 tablet (81 mg) by mouth once daily. atorvastatin (Lipitor) 40 mg tablet Take 1 tablet (40 mg) by mouth once daily at bedtime. cholecalciferol (Vitamin D-3) 50 MCG (2000 UT) tablet Take 1 tablet (2,000 Units) by mouth 2 times a day. clopidogrel (Plavix) 75 mg tablet Take 1 tablet (75 mg) by mouth once daily. cyanocobalamin (Vitamin B-12) 1,000 mcg tablet Take 1 tablet (1,000 mcg) by mouth once daily. finasteride (Proscar) 5 mg tablet Take 1 tablet (5 mg) by mouth once daily. glipiZIDE (Glucotrol) 5 mg tablet Take 1 tablet (5 mg) by mouth 2 times a day. magnesium oxide (Mag-Ox) 420 mg tablet Take 1 tablet (420 mg) by mouth 3 times a day. metFORMIN XR 500 mg 24 hr tablet 1 tablet (500 mg) 2 times a day. 180 tablet 0 metoprolol succinate XL (Toprol-XL) 100 mg 24 hr tablet Take 1 tablet (100 mg) by mouth once daily at bedtime. tamsulosin (Flomax) 0.4 mg 24 hr capsule Take 1 capsule (0.4 mg) by mouth once daily. [DISCONTINUED] isosorbide mononitrate ER (Imdur) 30 mg 24 hr tablet Take 1 tablet (30 mg) by mouth once daily. [DISCONTINUED] Synthroid 175 mcg tablet Take 1 tablet (175 mcg) by mouth 1 (one) time per week. hydrOXYzine HCL (Atarax) 25 mg tablet Take 1 tablet (25 mg) by mouth every 8 hours if needed for itching for up to 10 days. 30 tablet 0 isosorbide mononitrate ER (Imdur) 30 mg 24 hr tablet Take 1 tablet (30 mg) by mouth once daily. 90 tablet 3 levothyroxine (Synthroid) 175 mcg tablet Take 1 tablet (175 mcg) by mouth 1 (one) time per week. 90tablet 3 No facility-administered encounter medications on file as of 02/01/2024. Physical Exam: General: alert, oriented and in no acute distress HEENT: NC/AT; EOMI; PERRLA, external ear is normal Neck: supple; trachea midline; no masses; no JVD Chest: clear breath sounds bilaterally; no wheezing Cardio: regular rhythm, S1S2 normal, no murmurs Abdomen: Soft, non-tender, non-distension, no organomegaly Extremities: no clubbing/cyanosis/edema Neuro: Grossly intact Psychiatric: Normal mood and affect Past Cardiology Results (Last 3 Years): EKG: ECG 12 lead (Ancillary Performed) 09/21/2023 Electrocardiogram, 12-lead PRN ACS symptoms 2023 Electrocardiogram, 12-lead PRN ACS symptoms 2023 ECG 12 lead 07/29/2023 Echo: Echo Results: Adult Congenital Transthoracic Echo (TTE) Complete Transthoracic Echo (TTE) Complete 06/21/2023 [place] [id number], TRANSTHORACIC ECHOCARDIOGRAM REPORT Patient Name: RUTH Duron KEY Reading Physician: [id number] Sam Ugalde MD Study Date: 06/21/2023 Ordering Provider: [id number] BRODERICK GARCIA MRN/PID: [id number] Fellow: Nurse: Yesi Colby RN Date of /Age: 1 1945 / 77 years Room Attendants: Alvarado Rose [facility] Gender: M Additional Staff: Height: 172.72 cm Admit Date: Weight: 88.45 kg Admission Status: Outpatient BSA: 2.02 m2 Department Location: [facility] Echo Lab Blood Pressure: 123 /71 mmHg Study Type: TRANSTHORACIC ECHO (TTE) COMPLETE Diagnosis/ICD: Chronic ischemic heart disease, unspecified-I25.9 CPT Codes: Echo Complete w Full Doppler-92515 Study Detail: The following Echo studies were performed: 2D, Doppler, M-Mode and color flow. Definity used as a contrast agent for endocardial border definition and agitated saline used as a contrast agent for intraseptal flow evaluation. Total contrast used for this procedure was 2.00cc mL via IV push. PHYSICIAN INTERPRETATION: Left Ventricle: Left ventricular systolic function is normal, with an estimated ejection fraction of 60%. There are no regional wall motion abnormalities. The left ventricular cavity size is normal. Abnormal (paradoxical) septal motion, consistent with left bundle branch block. Spectral Doppler shows an impaired relaxation pattern of left ventricular diastolic filling. Left Atrium: The left atrium is normal in size. A bubble study using agitated saline was performed.Bubble study is negative. Right Ventricle: The right ventricle is normal in size. There is normal right ventricular global systolic function. Right Atrium: The right atrium is normal in size. Aortic Valve: The aortic valve is trileaflet. There is no evidence of aortic valve regurgitation. The peak instantaneous gradient of the aortic valve is 12.7 mmHg. The mean gradient of the aortic valve is 7.0 mmHg. Mitral Valve: The mitral valve is normal in structure. There is no evidence of mitral valve regurgitation. Tricuspid Valve: The tricuspid valve is structurally normal. There is trace tricuspid regurgitation. Pulmonic Valve: The pulmonic valve is not well visualized. There is no indication of pulmonic valveregurgitation. Pericardium: There is no pericardial effusion noted. Aorta: The aortic root is normal. CONCLUSIONS: 1. Left ventricular systolic function is normal with a 60% estimated ejection fraction. 2. Abnormal septal motion consistent with left bundle branch block. 3. Spectral Doppler shows an impaired relaxation pattern of left ventricular diastolic filling. QUANTITATIVE DATA SUMMARY: 2D MEASUREMENTS: Normal Ranges: Ao Root d: 3.10 cm (2.0-3.7cm) LAs: 3.10 cm (2.7-4.0cm) IVSd: 0.99 cm (0.6-1.1cm) LVPWd: 1.08 cm (0.6-1.1cm) LVIDd: 4.17 cm (3.9-5.9cm) LVIDs: 2.99 cm LV Mass Index: 70.4 g/m2 LV % FS 28.3 % LA VOLUME: Normal Ranges: LA Vol A4C: 28.3 ml (22+/-6mL/m2) LA Vol A2C: 39.3 ml LA Vol BP: 36.8 ml LA Vol Index A4C: 14.0ml/m2 LA Vol Index A2C: 19.5 ml/m2 LA Vol Index BP: 18.2 ml/m2 LA Area A4C: 12.6 cm2 LA Area A2C: 16.4 cm2 LA Major Fate A4C: 4.8 cm LA Major Fate A2C: 5.8 cm LA Volume Index: 13.1 ml/m2 LA Vol A4C: 26.5 ml LA Vol A2C: 39.2 ml LV SYSTOLIC FUNCTION BY 2D PLANIMETRY (MOD): Normal Ranges: EF-A4C View: 59.4 % (>=55%) EF-A2C View: 72.2 % EF-Biplane: 66.1 % LV DIASTOLIC FUNCTION: Normal Ranges: MV Peak E: 0.59 m/s (0.7-1.2 m/s) MV Peak A: 0.92 m/s (0.42-0.7 m/s) E/A Ratio: 0.64 (1.0-2.2) MV lateral e' 0.10 m/s MV medial e' 0.06 m/s MITRAL VALVE: Normal Ranges: MV DT: 268 msec (150-240msec) AORTIC VALVE: Normal Ranges: AoV Vmax: 1.78 m/s (<=1.7m/s) AoV Peak P.7 mmHg (<20mmHg) AoV Mean P.0 mmHg (1.7-11.5mmHg) LVOT Max Maddie: 1.06 m/s (<=1.1m/s) AoV VTI: 33.40 cm (18-25cm) LVOT VTI: 21.80 cm LVOT Diameter: 1.90 cm (1.8-2.4cm) AoV Area, VTI: 1.85 cm2 (2.5-5.5cm2) AoV Area,Vmax: 1.69 cm2 (2.5-4.5cm2) AoV Dimensionless Index: 0.65 RIGHT VENTRICLE: RV Basal 4.92 cm RV Mid 3.59 cm RV Major 8.6 cm TAPSE: 23.3 mm RV s' 0.11 m/s TRICUSPID VALVE/RVSP: Normal Ranges: Peak TR Velocity: 2.76 m/s RV Syst Pressure: 33.5 mmHg (< 30mmHg) [id number] Sam Ugalde MD Electronically signed on 06/21/2023 at 1:43:14 PM Final Cath: Cardiac catheterization - coronary 07/29/2023 CV NCDR CATHPCI V5 COLLECTION FORM Stress Test: Nuclear Stress Test 05/31/2023 Cardiac Imaging: No results found for this or any previous visit from the past 1095 days. Assessment/Plan In summary, Mr. Mackey is a 77-year-old non-smoker diabetic male with prior medical history significant for Coronary Artery Disease status post ostial RCA stent (2018), hypertension, hyperlipidemia, type 2 diabetes mellitus, severe ETHAN on CPAP, lumbosacral spondylosis, neurogenic claudication due to chronic lumbar spinal stenosis, hypothyroidism. He is currently feeling fine and is very active, however he endorses chest pain and some shortness of breath every time he exercises too much. His chest pain is pressure in nature, in the upper chest, gets worse with exercises, improves after a few minutes after resting. He denies palpitations, leg edema, lightheadedness, headaches, fever, chills, orthopnea, paroxysmal nocturnal dyspnea or syncope. # Coronary Artery Disease status post CABG x4 and LAAC (Dr. Malagon, 09/13/2023) / S/P ostial RCA stent / Stable Angina on exertion 1. Midline sternotomy 2. On-pump coronary artery bypass grafting x 4 TAI to LAD Radial artery to OM1 SVG sequentially to OM 2 and PDA 3. Left atrial appendage clip with AtriClip number 45 mm 4. Endoscopic harvesting of the left radial artery 5. Endoscopic harvesting of the greater saphenous vein - Patient endorses chest pain and some shortness of breath every time he exercises too much. His chest pain is pressure in nature, in the upper chest, gets worse with exercises, improves after a few minutes after resting and with nitroglycerin. - The EKG showed normal sinus rhythm with no signs of ACS. - Patient underwent nuclear stress test on 05/31/2023, showin. 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 2. The left ventricle is normal in size. 3. Decreased LV wall motion in the basal lateral wall with an LV EF estimated at 63%. - [facility] (05/29/2023): 1. Right coronary artery system dominance. 2. Multivessel Coronary Artery Disease involving Left Main. 3. Distal LM 60% calcified lesion. 4. Prox LAD 70% calcified lesion. 5. Mid LCx, ostial 1st OM, sotial 2nd OM subocclusive 99% disease. 6. Patent stent to ostial RCA. 7. Prox-mid PDA 70% lesion (small vessel). - He has been complaining of excessive bruising on ASA and Clopidogrel. - Therefore we will stop Clopidogrel at this point. - Keep current medications include aspirin 81 mg, atorvastatin 40 mg, Toprol 100 mg, isosorbide 60 mg daily. - Follow up in 6 months. # Hypertension - Controlled BP - Keep Lisinopril 10mg daily, Metoprolol succinate 100mg daily # Type 2 diabetes mellitus - Controlled by PCP - Keep Glipizide 5mg daily # Hyperlipidemia - Controlled by PCP - Keep Atorvastatin 80mg daily. # Severe ETHAN - Keep CPAP # Hypothyroidism - Keep Levothyroxine 200mcg daily We have discussed the most common side effects of the prescribed medications, indications, drug interactions, risks, complications, and alternatives of medications/therapeutics were explained and discussed. The patient has been requested to monitor closely for any untoward side effects or complications of medications. The patient has been strongly advised to be compliant with the recommendations,all the questions and concerns have been addressed. The patient has been also instructed to call, to return sooner or to go to the emergency department if symptoms persist or get worsen. The patient voiced understanding and denies any further questions at this time. This note was transcribed using the [employer] Dict[employer] system. There may be grammatical, punctuation,or verbiage errors that occur with voice recognition programs. Thank you, Dr. Sanchez, for allowing me to participate in the care of this patient. Please reach me out if you have any questions or if you need any clarifications regarding the patient's care. Broderick Garcia MD, PhD [facility]iology [facility] Work Phone: [phone]) 774-115903-26-2024 History of Present illness Narrative* Mary Garcia, HAND TACKER-DISPENSING LEAD - 11/09/2023 2:00 PM EDT Cardiac Surgery Outpatient Clinic Note Patient ID: Ruth Mackey ([id number]) Ruth Mackey is a 78 y.o. male who presents to the outpatient cardiac surgery clinic on 11/09/23 for a routine post-op visit; they are s/p CABG x3 (TAI-LAD, RA-OM1, SVG-OM2, SVG-PDA) with Dr. Jose Carlos Malagon on 09/13/23. Subjective Review of Systems Constitutional: Negative for chills, diaphoresis, fatigue and fever. HENT: Negative for congestion, nosebleeds, sore throat and trouble swallowing. Eyes: Negative for photophobia. Respiratory: Negative for chest tightness and shortness of breath. Cardiovascular: Negative for chest pain, palpitations and leg swelling. Gastrointestinal: Negative for abdominal distention, constipation and diarrhea. Endocrine: Negative for cold intolerance and heat intolerance. Genitourinary: Negative for frequency and urgency. Musculoskeletal: Negative for myalgias. Skin: Negative for color change and rash. Allergic/Immunologic: Negative for environmental allergies. Neurological: Negative for dizziness. Psychiatric/Behavioral: Negative for confusion and hallucinations. The patient is not nervous/anxious. All other systems reviewed and are negative. Past Medical History: Diagnosis Date Diabetes mellitus (CMS/HCC) Hyperlipidemia Hypertension Past Surgical History: Procedure Laterality Date CARDIAC CATHETERIZATION N/A 07/29/2023 Procedure: Left Heart Cath; Surgeon: Broderick Garcia MD; Location: [facility] Cardiac Public Health Clinical Nurse Specialist;Service: Cardiovascular; Laterality: N/A; OTHER SURGICAL HISTORY 06/01/2019 Kidney surgery OTHER SURGICAL HISTORY 06/01/2019 Cardiac catheterization OTHER SURGICAL HISTORY 06/01/2019 Colonoscopy OTHER SURGICAL HISTORY 06/01/2019 Epidural steroid injection OTHER SURGICAL HISTORY 06/01/2019 Epidural steroid injection OTHER SURGICAL HISTORY 06/01/2019 Epidural steroid injection OTHER SURGICAL HISTORY 06/01/2019 Epidural steroid injection OTHER SURGICAL HISTORY 06/01/2019 Epidural steroid injection OTHER SURGICAL HISTORY 06/01/2019 Intra-articular corticosteroid injection OTHER SURGICAL HISTORY 06/01/2019 Intra-articular corticosteroid injection OTHER SURGICAL HISTORY 06/01/2019 Esophagogastroduodenoscopy OTHER SURGICAL HISTORY 06/01/2019 Epidural steroid injection OTHER SURGICAL HISTORY 06/27/2019 Thyroid biopsy Family History Problem Relation Name Age of Onset Diabetes Mother Heart disease Mother Heart attack Mother Cancer Father Diabetes Father Liver cancer Sister Cancer Brother Alcohol abuse Brother Social History Socioeconomic History Marital status: Spouse name: Not on file Number of children: Not on file Years of education: Not on file Highest education level: Not on file Occupational History Not on file Tobacco Use Smoking status: Never Passive exposure: Never Smokeless tobacco: Never Vaping Use Vaping Use: Never used Substance and Sexual Activity Alcohol use: Not Currently Drug use: Never Sexual activity: Not on file Other Topics Concern Not on file Social History Narrative Not on file Social Determinants of Health Financial Resource Strain: Low Risk (09/13/2023) Overall Financial Resource Strain (CARDIA) Difficulty of Paying Living Expenses: Not hard at all Food Insecurity: No Food Insecurity (08/24/2023) Hunger Vital Sign Worried About Running Out of Food in the Last Year: Never true Ran Out of Food in the Last Year: Never true Transportation Needs: No Transportation Needs (10/13/2023) OASIS A1250: Transportation Lack of Transportation (Medical): No Lack of Transportation (Non-Medical): No Patient Unable or Declines to Respond: No Physical Activity: Not on file Stress: Not on file Social Connections: Feeling Socially Integrated (10/13/2023) OASIS D0700: Social Isolation Frequency of experiencing loneliness or isolation: Never Recent Concern: Social Connections - Feeling Somewhat Isolated (09/21/2023) OASIS D0700: Social Isolation Frequency of experiencing loneliness or isolation: Sometimes Intimate Partner Violence: Not on file Housing Stability: Low Risk (09/13/2023) Housing Stability Vital Sign Unable to Pay for Housing in the Last Year: No Number of Places Lived in the Last Year: 1 Unstable Housing in the Last Year: No Objective Vitals: 11/09/23 1401 BP: 111/68 Pulse: 82 Resp: 18 Temp: 36.7 C (98.1 F) SpO2: 98% Physical Exam Vitals and nursing note reviewed. Constitutional: General: He is not in acute distress. Appearance: Normal appearance. He is not ill-appearing. HENT: Head: Normocephalic and atraumatic. Nose: Nose normal. Mouth/Throat: Mouth: Mucous membranes are moist. Pharynx: Oropharynx is clear. Eyes: Extraocular Movements: Extraocular movements intact. Conjunctiva/sclera: Conjunctivae normal. Pupils: Pupils are equal, round, and reactive to light. Cardiovascular: Rate and Rhythm: Normal rate and regular rhythm. Pulses: Normal pulses. Heart sounds: Normal heart sounds, S1 normal and S2 normal. No murmur heard. No systolic murmur is present. No friction rub. No gallop. Pulmonary: Effort: Pulmonary effort is normal. Breath sounds: Normal breath sounds. Abdominal: General: Abdomen is flat. Bowel sounds are normal. There is no distension. Palpations: Abdomen is soft. Musculoskeletal: General: Normal range of motion. Cervical back: Normal range of motion and neck supple. Right lower leg: No edema. Left lower leg: No edema. Skin: General: Skin is warm and dry. Capillary Refill: Capillary refill takes less than 2 seconds. Findings: No lesion. Nails: There is no clubbing. Neurological: General: No focal deficit present. Mental Status: He is alert and oriented to person, place, and time. Mental status is at baseline. Cranial Nerves: Cranial nerves 2-12 are intact. Sensory: Sensation is intact. Motor: Motor function is intact. Psychiatric: Attention and Perception: Attention and perception normal. Mood and Affect: Mood normal. Speech: Speech normal. Behavior: Behavior normal. Thought Content: Thought content normal. Cognition and Memory: Cognition and memory normal. Judgment: Judgment normal. Assessment & Plan Ruth Mackey is a 78 y.o.male who presents today for a routine post-op visit. He is s/p CABG x3 (TAI-LAD, RA-OM1, SVG-OM2, SVG-PDA) with Dr. Jose Carlos Malagon on 09/13/23. The patient presents today with his ; he states that he has been recovering well in the post-opperiod without recent concerns. He did state that shortly after discharge to home, he was taking oxycodone and had hallucinations that caused him to seek medical attention. However, during evaluationin the ED, given a long wait, the patient's hallucinations subsided and he signed out AMA. He has been without recurrent hallucinations and has not taken the oxycodone since. From a post-op perspective, the patient is recovering well without concerns. He is cleared to startdriving and okay to enroll in cardiac rehab. The patient should continue on ASA 81mg, Atorvastatin 40mg, clopidogrel 75mg every day, and metoprolol succinate 100mg every day. The patient did note that he has been with intermittent trouble sleeping, and though he was taking melatonin at home. Patient was ordered hydroxyzine 25mg to take at night along with his OTC melatonin. Okay to discharge to cardiology and follow up with cardiac surgery on a PRN basis. STEPHEN Ho [facility] Cardiac Surgery Outpatient Clinic [facility] - Office [phone] [place] [address] Office documented in this [facility] Work Phone: [phone] 223-473903-26-2024 Instructions* Patient Instructions* STEPHEN Ho - 11/09/2023 2:00 PM EDT Images from the original note were not included. Coronary Artery Bypass Grafting Discharge Instructions About this topic Normally, you have many blood vessels that bring blood to the heart muscle. If one of them is blocked, your doctor will try to restore normal blood flow. Then you may have less chest pain, your heartmay work better, and you may be able to be more active. This surgery uses another blood vessel to let the blood flow around the one with the blockage. You may have surgery on more than one blocked blood vessel. After surgery, you may have more blood flow to your heart muscle. This may lower your risk of heart attack or chest pain. What care is needed at home? Ask your doctor what you need to do when you go home. Make sure you ask questions if you do not understand what the doctor says. This way you will know what you need to do. Your doctor may want you to take part in a heart rehab program. This will help your healing and improve your heart function. Patients attend the program after their surgery a few days a week. The program teaches exercise and how to lower risk factors for heart disease and stress. It also can help you deal with the low mood that sometimes happens after surgery. Be sure to follow your doctor's advice about: Wound care for your chest and other sites. Your doctor will tell you when or how often you will need to change your dressing. Be sure you know the signs to watch for and when to call your doctor. Showering. Do not to take a bath or swim until your doctor tells you it is OK. You may take a shower, but make sure that cut site is covered with plastic wrap so it will not get wet. Supporting your chest when you cough, sneeze, or laugh. Use a pillow or hug yourself to ease pain. Doing your coughing and breathing exercises. Walking and other exercises to help your healing. Quitting smoking. Talk with your doctor for help to stop smoking. Lowering stress. Find ways to cope with your stress or talk to your doctor about it. Taking drugs for high blood pressure, heart rhythm, blood thinning, and lowering cholesterol. Having blood tests and exams as ordered after the surgery. What follow-up care is needed? Your doctor may ask you to make visits to the office to check on your progress. Be sure to keep these visits. If you have stitches or aubrie, you will need to have them taken out. Your doctor will often want to do this in 1 to 2 weeks. If the doctor used skin glue, the glue will fall off on its own. Your doctor may do some tests to check your overall progress. Your doctor may also change your drugs if needed. Together you can make a plan for more care. Your doctor may order a heart rehab program for you after you leave the hospital. This is an important part of your care. Share your discharge information with the rehab staff so they can plan a program to help you recover. Let your doctor know if you need help finding a program. What drugs may be needed? The doctor may order drugs to: Lower cholesterol Help with pain Control blood pressure Slow your heart rate or keep it regular Prevent blood clots Prevent infection Help you stop smoking Will physical activity be limited? You will have to limit your activity for 3 to 6 weeks. Your doctor will give you some precautions you need to follow. Talk to your doctor about the right amount of activity for you. Avoid driving for a few weeks until your doctor tells you it is allowed and you are no longer taking prescription pain drugs. Ask your doctor when to return to your normal activities like work and sex. Exercise often. Talk with your doctor about what exercise is safe for you. Be sure to ask your doctor before you start any new activities. What changes to diet are needed? Eat a heart healthy diet with foods low in fat, sugar, and salt. Eat high-fiber foods such as wholegrains, fruits, and vegetables. Ask your doctor to plan a visit with a diesel engine tester if you need help with your diet. What problems could happen? Internal bleeding or bleeding at the cut site Infection Stroke or heart attack Irregular heart rhythms Pneumonia or breathing problems Blood clots Kidney failure Pancreatitis Failure of the graft When do I need to call the doctor? Activate the emergency medical system right away if you have signs of a heart attack or stroke. Call 911 in the [place] or [place]. The sooner treatment begins, the better your chances for recovery. Call for emergency help right away if you have: Signs of heart attack: Chest pain Trouble breathing Fast heartbeat Feeling dizzy Signs of stroke: Sudden numbness or weakness of the face, arm, or leg, especially on one side of the body Sudden confusion, trouble speaking or understanding Sudden trouble seeing in one or both eyes Sudden trouble walking, dizziness, loss of balance or coordination Sudden severe headache with no known cause Call your doctor if you have: Signs of infection. These include a fever of 100.4 F (38 C) or higher; chills; redness, swelling, very bad sore throat, cough, more sputum or change in color of sputum, pain with passing urine, burning, urgency, and blood in the urine. Signs of wound infection. These include swelling, redness, warmth around the wound; too much pain when touched; yellowish, greenish, or bloody discharge; foul smell coming from the cut site; cut siteopens up. Any signs including pain, upset stomach, throwing up that does not go away even with drugs you are taking Rapid heart rate Arms or legs are numb or swollen Teach Back: Helping You Understand The Teach Back Method helps you understand the information we are giving you. After you talk with the staff, tell them in your own words what you learned. This helps to make sure the staff has described each thing clearly. It also helps to explain things that may have been confusing. Before going home, make sure you can do these: I can tell you about my procedure. I can tell you how to care for my cut site. I can tell you when I can go back to my normal activities. I can tell you what I will do if I have signs of an infection. Last Reviewed Date 2019-09-15 Consumer Information Use and Disclaimer This generalized information is a limited summary of diagnosis, treatment, and/or medication information. It is not meant to be comprehensive and should be used as a tool to help the user understand and/or assess potential diagnostic and treatment options. It does NOT include all information about conditions, treatments, medications, side effects, or risks that may apply to a specific patient. Itis not intended to be medical advice or a substitute for the medical advice, diagnosis, or treatment of a health care provider based on the health care provider's examination and assessment of a patient s specific and unique circumstances. Patients must speak with a health care provider for complete information about their health, medical questions, and treatment options, including any risks or benefits regarding use of medications. This information does not endorse any treatments or medications as safe, effective, or approved for treating a specific patient. [employer] and its affiliatesdisclaim any warranty or liability relating to this information or the use thereof. The use of thisinformation is governed by the Terms of Use, available at https://www.wolterskluwer.com/en/know/ffxjhohb-pbezhrmbkbito-cpetq Copyright 2022 [employer]. and its affiliates and/or licensors. All rights reserved. documented in this [facility] Work Phone: 1(272) 895-835303-22-2024 History of Present illness Narrative* Surekha Mccarty MA - 11/05/2023 1:40 PM EDT Subjective Patient ID: Ruth Mackey is a 78 y.o. male who presents for 3 month follow up. HPI Review of Systems Objective There were no vitals taken for this visit. Physical Exam Assessment/Plan * Zahra Sanchez MD - 11/05/2023 1:40 PM EDT Subjective Reason for Visit: Ruth Mackey is an 78 y.o. male here for a Medicare Wellness visit. Past Medical, Surgical, and Family History reviewed and updated in chart. Reviewed all medications by prescribing practitioner or clinical pharmacist (such as prescriptions,OTCs, herbal therapies and supplements) and documented in the medical record. Here for follow up HTN, high chol, CAD, s/p stents 2017, ischemic heart disease, CABG 2023 (Dr Garcia, Dr Malagon), DM, ETHAN on CPAP, hypothyroidism. He states that overall he is doing pretty well. Hewill be doing labs soon. Advance directives:. Advanced Care Planning discussed and documented advance care plan or surrogatedecision maker documented in the medical record. Patient has living will. Patient has healthcare POA. Patient Care Team: Zahra Sanchez MD as PCP - General (Family Medicine) Miguelina Palaico LPN as Aerospace Manager (Case Management) Broderick Garcia MD as Consulting Physician (Cardiology) Jose Carlos Malagon MD as Surgeon (Cardiothoracic Surgery) Objective Vitals: BP 118/52 (BP Location: Left arm, Patient Position: Sitting, BP Cuff Size: Adult) Pulse 76 Ht 1.702 m (5' 7) Wt 89 kg (196 lb 4.8 oz) BMI 30.74 kg/m Physical Exam Vitals reviewed. Constitutional: General: He is not in acute distress. Cardiovascular: Rate and Rhythm: Normal rate and regular rhythm. Heart sounds: No murmur heard. Pulmonary: Effort: Pulmonary effort is normal. No respiratory distress. Breath sounds: Normal breath sounds. Skin: General: Skin is warm and dry. Neurological: General: No focal deficit present. Mental Status: He is alert. Mental status is at baseline. Assessment/Plan Problem List Items Addressed This Visit Diabetes mellitus (CMS/HCC) - Primary Relevant Orders Follow Up In Primary Care - Established HTN (hypertension), benign Relevant Orders Follow Up In Primary Care - Established Hyperlipidemia Relevant Orders Follow Up In Primary Care - Established Hypothyroidism Relevant Orders Follow Up In Primary Care - Established Stage 3 chronic kidney disease (CMS/HCC) Relevant Orders Follow Up In Primary Care - Established Other Visit Diagnoses CAD S/P percutaneous coronary angioplasty Relevant Orders Follow Up In Primary Care - Established Routine general medical examination at health care facility [facility] Work Phone: 1(298) 468-958703-22-2024 Instructions* Patient Instructions* Zahra Sanchez MD - 11/05/2023 1:40 PM EDT Continue current medications. Follow up with specialists as scheduled. Follow up in 6 months, sooner if needed. [facility] Work Phone: [phone]) 304-735602-08-2024 History of Present illness Narrative* Surekha Mccarty MA - 09/23/2023 1:20 PM EST Subjective Patient ID: Ruth Mackey is a 78 y.o. male who presents for follow up to heart surgery. Took oxycodone. Had to call the squad and was out of It. He was advise to do a follow up. HPI Review of Systems Objective There were no vitals taken for this visit. Physical Exam Assessment/Plan * Zahra Sanchez MD - 09/23/2023 1:20 PM EST Patient: Ruth Mackey : 1945 PCP: Zahra Sanchez MD Program: No linked episodes Ruth Mackey is a 78 y.o. male presenting today for follow-up after being discharged from the hospital 5 days ago. The main problem requiring admission was CABG. The discharge summary and/or Transitional Care Management documentation was reviewed. Medication reconciliation was performed as indicated via the [employer] as Reviewed timestamp. Ruth Mackey was contacted by Transitional Care Management services two days after his discharge. This encounter and supporting documentation was reviewed. The complexity of medical decision making for this patient's transitional care is high. Here for follow up recent hospitalization for CABG. Did well with that, but was discharged home on oxycodone and had some hallucinations and had to go to ER on 09/20. He had work up that was remarkableonly for mild hypokalemia and they recommended hospitalization but he left AMA with his family as he was feeling better at the ER. He has h/o hallucinations after anesthesia in the past as well. He states that he is feeling pretty good right now. Physical Exam Vitals reviewed. Constitutional: General: He is not in acute distress. Cardiovascular: Rate and Rhythm: Normal rate and regular rhythm. Heart sounds: No murmur heard. Pulmonary: Effort: Pulmonary effort is normal. No respiratory distress. Breath sounds: Normal breath sounds. Skin: General: Skin is warm and dry. Neurological: General: No focal deficit present. Mental Status: He is alert. Mental status is at baseline. 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 ([facility]/HCC) - Primary I25.721 Diabetes mellitus ([facility]/HCC) E11.9 HTN (hypertension), benign I10 Hyperlipidemia E78.5 Hypothyroidism E03.9 Stage 3 chronic kidney disease ([facility]) N18.30 Family History Problem Relation Name Age of Onset Diabetes Mother Heart disease Mother Heart attack Mother Cancer Father Diabetes Father Liver cancer Sister Cancer Brother Alcohol abuse Brother Medications Medications reviewed with patient/caregiver?: Yes (09/21/2023 2:31 PM) Is the patient having any side effects they believe may be caused by any medication additions or changes?: No (09/21/2023 2:31 PM) Does the patient have all medications ordered at discharge?: Yes (09/21/2023 2:31 PM) Care Management Interventions: Provided patient education (09/21/2023 2:31 PM) Is the patient taking all medications as directed (includes completed medication regime)?: Yes (09/21/2023 2:31 PM) Care Management Interventions: Provided patient education (09/21/2023 2:31 PM) Medication Comments: Tylenol, Lasix, Oxycodone,Change Metoprolol,Stop Cipro, Lisinopril, Nitro (09/21/2023 2:31 PM) Appointments Does the patient have a primary care provider?: Yes (09/21/2023 2:31 PM) Care Management Interventions: Verified appointment date/time/provider (09/21/2023 2:31 PM) Has the patient kept scheduled appointments due by today?: Yes (09/21/2023 2:31 PM) Care Management Interventions: Advised patient to keep appointment (09/21/2023 2:31 PM) Self Management What is the home health agency?: Home Team (09/21/2023 2:31 PM) Has home health visited the patient within 72 hours of discharge?: Yes (09/21/2023 2:31 PM) Patient Teaching Does the patient have access to their discharge instructions?: Yes (09/21/2023 2:31 PM) Care Management Interventions: Reviewed instructions with patient (09/21/2023 2:31 PM) What is the patient's perception of their health status since discharge?: Improving (09/21/2023 2:31 PM) Is the patient/caregiver able to teach back the hierarchy of who to call/visit for symptoms/problems? PCP, Specialist, Home Health nurse, Urgent Care, ED, 911: Yes (09/21/2023 2:31 PM) No follow-ups on file. [facility] Work Phone: [phone]) [phone] Instructions* Patient Instructions* Zahra Sanchez MD - 09/23/2023 1:20 PM EST Continue current medications. Follow up with specialists as scheduled. Follow up here next month asscheduled, sooner if needed. [facility] Work Phone: [phone]) 484-183202-03-2024 History of Present illness Narrative* Rere Bartholomew RN - 09/18/2023 2:39 PM EST 09/18/23 1439 Discharge Planning Type of Home Care Services Home OT;Home PT;Home nursing visits Patient expects to be discharged to: [facility] Does the patient need discharge transport arranged? No Discharge in for today to home with [facility] for [place] [facility] [place] [facility] updated. Awaiting SOC. UPDATE 1447: SOC for 24-48 hrs. RERE BARTHOLOMEW RN TCC * Lupillo Mckeon, PT - 09/17/2023 3:48 PM EST Physical Therapy Physical Therapy Treatment Patient Name: Ruth Mackey Today's Date: 09/17/2023 Time Calculation Start Time: 1000 Stop Time: 1026 Time Calculation (min): 26 min Assessment/Plan PT Assessment End of Session Communication: Bedside nurse, Product Engineer PT Plan Inpatient/Swing Bed or Outpatient: Inpatient PT Plan PT Plan: Skilled PT PT Frequency: 5 times per week PT Discharge Recommendations: Low intensity level of continued care PT - OK to Discharge: Yes General Visit Information: PT Visit PT Received On: 09/17/23 General Prior to Session Communication: Bedside nurse Patient Position Received: Up in chair, Alarm off, not on at start of session Subjective Precautions: Precautions Post-Surgical Precautions: Move in the Tube Vital Signs: Objective Pain: Pain Assessment Pain Score: 0 - No pain Cognition: Cognition Overall Cognitive Status: Within Functional Limits Postural Control: Extremity/Trunk Assessments: Activity Tolerance: Treatments: Bed Mobility Bed Mobility: Yes (ind) Ambulation/Gait Training Ambulation/Gait Training Performed: Yes (125 ft wh walker sup/ind) Transfers Transfer: Yes (ind) Outcome Measures: [facility] Basic Mobility Turning from your back to your side while in a flat bed without using bedrails: None Moving from lying on your back to sitting on the side of a flat bed without using bedrails: None Moving to and from bed to chair (including a wheelchair): None Standing up from a chair using your arms (e.g. wheelchair or bedside chair): None To walk in hospital room: None Climbing 3-5 steps with railing: A little Basic Mobility - Total Score: 23 Education Documentation Precautions, taught by Lupillo Mckeon PT at 09/17/2023 3:48 PM. Learner: Patient Readiness: Acceptance Method: Explanation Response: Verbalizes Understanding ADL Training, taught by Lupillo Mckeon PT at 09/17/2023 3:48 PM. Learner: Patient Readiness: Acceptance Method: Explanation Response: Verbalizes Understanding Mobility Training, taught by Lupillo Mckeon, PT at 09/17/2023 3:48 PM. Learner: Patient Readiness: Acceptance Method: Explanation Response: Verbalizes Understanding Education Comments No comments found. OP EDUCATION: Encounter Problems Encounter Problems (Active) PT Problem bed mob (Met) Start: 09/14/23 Expected End: 09/21/23 Resolved: 09/17/23 Ind bed mob faye (Met) Start: 09/14/23 Expected End: 09/21/23 Resolved: 09/17/23 Ind faye gait/stairs (Progressing) Start: 09/14/23 Expected End: 09/21/23 Amb ind approp device or w/o a device 100 ft> Ind/sba stairs * Guillermo Vang OT - 09/17/2023 1:30 PM EST Occupational Therapy Occupational Therapy Treatment Name: Ruth Mackey : 1945 Date: 09/17/23 Time Calculation Start Time: 1330 Stop Time: 1355 Time Calculation (min): 25 min Assessment: OT Assessment: Patient showing good progress toward goals End of Session Communication: Bedside nurse End of Session Patient Position: Up in chair Plan: Treatment Interventions: ADL retraining, Functional transfer training, UE strengthening/ROM, Endurance training, Compensatory technique education OT Frequency: 3 times per week OT Discharge Recommendations: Low intensity level of continued care OT - OK to Discharge: Yes (to next level of care when cleared by medical team) Subjective Previous Visit Info: OT Last Visit OT Received On: 09/17/23 General: General Patient Position Received: Bed, 2 rail up General Comment: Patient seen for bedside treatment in room 175; cooperative, motivated, pleasant. Precautions: Medical Precautions: Cardiac precautions, Fall precautions, Oxygen therapy device and L/min Precautions Comment: MITT precautions Pain Assessment: Pain Assessment Pain Assessment: 0-10 Pain Score: 8 Pain Location: Chest (incisional when coughs) Objective Activities of Daily Living: LE Dressing LE Dressing: Yes Pants Level of Assistance: Minimum assistance LE Dressing Where Assessed: Edge of bed (then standing to pull pants to waist level) Bed Mobility/Transfers: Bed Mobility Bed Mobility: Yes Bed Mobility 1 Bed Mobility 1: Supine to sitting (edge of bed) Level of Assistance 1: (SBA) Bed Mobility Comments 1: HOB elevated Transfers Transfer: Yes Transfer 1 Transfer From 1: Sit to, Stand to Transfer to 1: Bed Transfer Level of Assistance 1: Contact guard Ambulation/Gait Training: Ambulation/Gait Training Ambulation/Gait Training Performed: Yes Ambulation/Gait Training 1 Comments/Distance (ft) 1: ffew steps from hospital bed to chair Sitting Balance: Static Sitting Balance Static Sitting-Level of Assistance: Independent Standing Balance: Static Standing Balance Static Standing-Level of Assistance: Contact guard Outcome Measures: [facility] Daily Activity Putting on and taking off regular lower body clothing: A little Bathing (including washing, rinsing, drying): A little Putting on and taking off regular upper body clothing: A little Toileting, which includes using toilet, bedpan or urinal: A little Taking care of personal grooming such as brushing teeth: None Eating Meals: None Daily Activity - Total Score: 20 Education Documentation Handouts, taught by Guillermo Vang OT at 09/17/2023 4:29 PM. Learner: Patient Readiness: Acceptance Method: Explanation Response: Verbalizes Understanding, Demonstrated Understanding Comment: energy conservation/diaphragmatic breathing techniques with patient practice in proper breathing techniques and handouts issued which patient agreed to read thoroughly on own. ADL Training, taught by Guillermo Vang OT at 09/17/2023 4:29 PM. Learner: Patient Readiness: Acceptance Method: Explanation Response: Verbalizes Understanding, Demonstrated Understanding Comment: energy conservation/diaphragmatic breathing techniques with patient practice in proper breathing techniques and handouts issued which patient agreed to read thoroughly on own. Goals: Encounter Problems Encounter Problems (Active) OT Goals Increase functional mobility and functional transfers to supervision for bed/chair/toilet with dme prn (Progressing) Start: 09/14/23 Expected End: 09/21/23 increase bue ther ex/activity x 7-10 minutes and increase standing tolerance with supervision x 3-5minutes to promote greater activity tolerance for assist with adl. (Progressing) Start: 09/14/23 Expected End: 09/21/23 Increase ub/lb dressing/bathing to supervision with dme prn (Progressing) Start: 09/14/23 Expected End: 09/21/23 Increase toileting to supervision with dme prn (Progressing) Start: 09/14/23 Expected End: 09/21/23 pt. to apply ec/ws techniques without cues to all mobility/transfer/adl to decrease fatigue/promoteefficient use of energy toward completion of functional tasks. (Progressing) Start: 09/14/23 Expected End: 09/21/23 * Mary Garcia APRN-DISPENSING LEAD - 09/17/2023 1:16 PM EST Cardiac Surgery Progress Note Ruth Mackey is a 78 y.o. male on day 4 of admission presenting with 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 [place] heart with stable angina pectoris (CMS/HCC). Subjective Interval HPI: Seen and assessed patient this AM while they were sitting up in bedside chair; in no acute distress. Review of Systems Constitutional: Negative for decreased appetite and malaise/fatigue. HENT: Negative for congestion. Eyes: Negative for blurred vision and double vision. Cardiovascular: Positive for leg swelling. Negative for chest pain, dyspnea on exertion, irregular heartbeat, orthopnea and palpitations. Respiratory: Negative for cough and shortness of breath. Endocrine: Negative for cold intolerance and heat intolerance. Skin: Negative for nail changes, poor wound healing and rash. Musculoskeletal: Negative for arthritis, muscle cramps, muscle weakness, myalgias and stiffness. Gastrointestinal: Negative for bloating, nausea and vomiting. Genitourinary: Negative for frequency, hesitancy and urgency. Neurological: Positive for weakness. Negative for dizziness, focal weakness and light-headedness. Psychiatric/Behavioral: Negative for altered mental status. Allergic/Immunologic: Negative for environmental allergies. Objective Physical Exam Physical Exam Vitals and nursing note reviewed. Constitutional: General: He is awake. He is not in acute distress. Appearance: Normal appearance. He is not ill-appearing or diaphoretic. Interventions: Nasal cannula in place. HENT: Head: Normocephalic and atraumatic. Nose: Nose normal. Mouth/Throat: Mouth: Mucous membranes are dry. Pharynx: No oropharyngeal exudate. Eyes: Extraocular Movements: Extraocular movements intact. Pupils: Pupils are equal, round, and reactive to light. Cardiovascular: Rate and Rhythm: Normal rate and regular rhythm. Pulses: Normal pulses. Heart sounds: Normal heart sounds, S1 normal and S2 normal. No murmur heard. No friction rub. No gallop. Pulmonary: Effort: Pulmonary effort is normal. No tachypnea, bradypnea or accessory muscle usage. Breath sounds: Examination of the right-lower field reveals decreased breath sounds. Examination ofthe left-lower field reveals decreased breath sounds. Decreased breath sounds present. Chest: Chest wall: Tenderness present. No crepitus or edema. Abdominal: General: Bowel sounds are normal. Palpations: Abdomen is soft. Tenderness: There is no abdominal tenderness. Musculoskeletal: Cervical back: Normal range of motion and neck supple. No edema. Skin: General: Skin is warm. Capillary Refill: Capillary refill takes less than 2 seconds. Comments: Mediastinal incision TRINI, well approximated C/D/I Neurological: Mental Status: He is alert. GCS: GCS eye subscore is 1. GCS verbal subscore is 1. GCS motor subscore is 1. Cranial Nerves: Cranial nerves 2-12 are intact. Psychiatric: Behavior: Behavior is cooperative. Last Recorded Vitals Vitals: 09/17/23 1000 09/17/23 1100 09/17/23 1200 09/17/23 1306 BP: 151/75 117/62 BP Location: Patient Position: Pulse: 100 82 Resp: 25 21 Temp: 36.7 C (98.1 F) TempSrc: Temporal SpO2: 95% 94% 92% Weight: Height: Intake/Output last 3 Shifts: I/O last 3 completed shifts: In: 2.4 (0 mL/kg) [I.V.:2.4 (0 mL/kg)] Out: 2700 (30.2 mL/kg) [Urine:2700 (0.8 mL/kg/hr)] Weight: 89.4 kg Scheduled medications acetaminophen, 975 mg, oral, q6h aspirin, 81 mg, oral, Daily atorvastatin, 40 mg, oral, Nightly cholecalciferol, 2,000 Units, oral, BID cyanocobalamin, 1,000 mcg, oral, Daily enoxaparin, 40 mg, subcutaneous, Daily finasteride, 5 mg, oral, Daily furosemide, 20 mg, intravenous, q12h gabapentin, 100 mg, oral, TID insulin lispro, 0-15 Units, subcutaneous, Before meals & nightly ipratropium-albuteroL, 3 mL, nebulization, TID isosorbide mononitrate ER, 30 mg, oral, Daily [START ON 09/20/2023] levothyroxine, 175 mcg, oral, Weekly lidocaine, 1 patch, transdermal, q24h magnesium oxide, 400 mg, oral, Daily metoprolol tartrate, 50 mg, oral, BID pantoprazole, 40 mg, oral, Daily before breakfast psyllium, 1 packet, oral, Daily sennosides-docusate sodium, 2 tablet, oral, BID tamsulosin, 0.4 mg, oral, Daily Continuous medications PRN medications PRN medications: albumin human, benzocaine-menthol, benzonatate, dextrose OR glucagon, electrolyte-A, fentaNYL, guaiFENesin, ipratropium-albuteroL, magnesium sulfate, magnesium sulfate, metoclopramide OR metoclopramide, naloxone, ondansetron OR ondansetron, oxyCODONE, oxyCODONE, oxygen,potassium chloride, potassium chloride Relevant Results Labs Results for orders placed or performed during the hospital encounter of 09/13/23 (from the past 24 hour(s)) POCT GLUCOSE Result Value Ref Range POCT Glucose 213 (H) 74 - 99 mg/dL CBC Result Value Ref Range WBC 7.0 4.4 - 11.3 x10*3/uL nRBC 0.0 0.0 - 0.0 /100 WBCs RBC 2.58 (L) 4.50 - 5.90 x10*6/uL Hemoglobin 8.9 (L) 13.5 - 17.5 g/dL Hematocrit 26.7 (L) 41.0 - 52.0 % MCV 104 (H) 80 - 100 fL MCH 34.5 (H) 26.0 - 34.0 pg MCHC 33.3 32.0 - 36.0 g/dL RDW 13.7 11.5 - 14.5 % Platelets 141 (L) 150 - 450 x10*3/uL Magnesium Result Value Ref Range Magnesium 1.80 1.60 - 2.40 mg/dL Renal Function Panel Result Value Ref Range Glucose 222 (H) 74 - 99 mg/dL Sodium 136 136 - 145 mmol/L Potassium 4.0 3.5 - 5.3 mmol/L Chloride 98 98 - 107 mmol/L Bicarbonate 29 21 - 32 mmol/L Anion Gap 13 10 - 20 mmol/L Urea Nitrogen 47 (H) 6 - 23 mg/dL Creatinine 1.68 (H) 0.50 - 1.30 mg/dL eGFR 42 (L) >60 mL/min/1.73m*2 Calcium 8.8 8.6 - 10.3 mg/dL Phosphorus 3.5 2.5 - 4.9 mg/dL Albumin 3.2 (L) 3.4 - 5.0 g/dL POCT GLUCOSE Result Value Ref Range POCT Glucose 180 (H) 74 - 99 mg/dL Cardiology Tests Echo: Transthoracic Echo (TTE) Complete 06/21/2023 PHYSICIAN INTERPRETATION: Left Ventricle: Left ventricular systolic function is normal, with an estimated ejection fraction of 60%. There are no regional wall motion abnormalities. The left ventricular cavity size is normal. Abnormal (paradoxical) septal motion, consistent with left bundle branch block. Spectral Doppler shows an impaired relaxation pattern of left ventricular diastolic filling. Left Atrium: The left atrium is normal in size. A bubble study using agitated saline was performed.Bubble study is negative. Right Ventricle: The right ventricle is normal in size. There is normal right ventricular global systolic function. Right Atrium: The right atrium is normal in size. Aortic Valve: The aortic valve is trileaflet. There is no evidence of aortic valve regurgitation. The peak instantaneous gradient of the aortic valve is 12.7 mmHg. The mean gradient of the aortic valve is 7.0 mmHg. Mitral Valve: The mitral valve is normal in structure. There is no evidence of mitral valve regurgitation. Tricuspid Valve: The tricuspid valve is structurally normal. There is trace tricuspid regurgitation. Pulmonic Valve: The pulmonic valve is not well visualized. There is no indication of pulmonic valveregurgitation. Pericardium: There is no pericardial effusion noted. Aorta: The aortic root is normal. CONCLUSIONS: 1. Left ventricular systolic function is normal with a 60% estimated ejection fraction. 2. Abnormal septal motion consistent with left bundle branch block. 3. Spectral Doppler shows an impaired relaxation pattern of left ventricular diastolic filling. Ejection Fractions: EF Date/Time Value Ref Range Status 06/21/2023 12:55 PM 66 Cath: Cardiac catheterization - coronary 07/29/2023 Coronary Angiography: The coronary circulation is right dominant. Left Main Coronary Artery: The left main coronary artery is a normal caliber vessel. The left main arises normally from the left coronary sinus of Valsalva and bifurcates into the LAD and circumflex coronary arteries. The leftmain coronary artery showed atherosclerotic disease and calcification. The distal left main coronary artery showed 60% stenosis. This lesion was calcified. Left Anterior Descending Coronary Artery Distribution: The left anterior descending coronary artery is a normal caliber vessel. The LAD arises normally from the left main coronary artery. The LAD demonstrated a normal vessel, atherosclerotic disease and calcification. The proximal left anterior descending coronary artery showed 70% stenosis. This lesion was diffuse. The 1st diagonal branch is a normal caliber vessel. The 1st diagonal branch showed nosignificant disease or stenosis greater than 30%. Circumflex Coronary Artery Distribution: The circumflex coronary artery is a normal caliber vessel. The circumflex arises normally from the left main coronary artery and terminates in the AV groove. The circumflex revealed atherosclerotic disease and calcification. The mid circumflex coronary artery showed 99% stenosis. This lesion was calcified. The 1st obtuse marginal branch is a small caliber vessel. The 1st obtuse marginal branch showed atherosclerotic disease. The ostial 1st obtuse marginal branch showed 99% stenosis. This lesionwas diffuse. The 2nd obtuse marginal branch is a small caliber vessel. The 2nd obtuse marginal branch demonstrated atherosclerotic disease. The ostial 2nd obtuse marginal branch demonstrated 99% stenosis. This lesion was diffuse. Right Coronary Artery Distribution: The right coronary artery is a normal caliber vessel. The RCA arises normally from the right sinus of Valsalva. The RCA showed no significant disease or stenosis greater than 30%. Patent stent to ostial RCA. The right posterolateral branch is a normal caliber vessel. The right posterolateral branchshowed no significant disease or stenosis greater than 30%. The right posterior descending artery is a small caliber vessel. The right posterior descending artery showed atherosclerotic disease. The proximal to mid right posterior descending artery revealed 70% stenosis. This lesion was diffuse. Coronary Lesion Summary: Vessel Stenosis Vessel Segment Left Main 60% stenosis distal LAD 70% stenosis proximal Circumflex 99% stenosis mid OM 1 99% stenosis ostial OM 2 99% stenosis ostial RPDA 70% stenosis proximal to mid Stress Test: Nuclear Stress Test 05/31/2023 FINDINGS: Small fixed perfusion defect in the basal lateral wall associated decreased wall motion. The left ventricle is normal in size. Gated images demonstrate decreased LV wall motion in the basal lateral wall with an LV EF estimated at 63%. Attenuation correction CT images demonstrate no gross anatomic abnormalities. IMPRESSION: 1. 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 2. The left ventricle is normal in size. 3. Decreased LV wall motion in the basal lateral wall with an LV EF estimated at 63%. History of Present Illness: Ruth Mackey is a 77 y.o. male with a PMH significant for CAD (s/pPCI in 2018), Essential HTN, HLD, T2DM, and Hypothyroidism who presents to [facility] on 09/13/2023 for a staged CABG with cardiac surgeon, Dr. Jose Carlos Malagon. Daily Event 09/13/23: Patient arrived to the ICU in critically ill but stable condition. Intubated & sedated, s/p On-pump CABG x4. - Vital Signs: HR 80, BP 112/88, SpO2 100% - Hemodynamics: CVP 11, CO 5.1, CI2.5 , SVR 1854 - Ventilator Settings: PRVC-AC / FiO2 / PEEP / RR - Pump time: 72 minutes Intake & Output: - Initial R Pleural Chest Tube: 40mL - Initial L Pleural Chest Tube: 30mL - Initial Mediastinal Chest Tube: 50mL 09/14/23: No acute events overnight. Patient extubated in the immediate post-op period. This AM, hewas sitting up in the chair with only the usual post op complaints of pain. No current use of vasopressors/inotropes as they had been weaned off. Throughout the day, the patient was with hemodynamic stability. Plan to discontinue flow track therapy and remove a-line. Chest tubes with moderate output, will plan to remove this evening vs tomorrow AM. Otherwise, starting patient on IV diuresis. - Current O2 Requirements: 2L NC 09/15/23: Continues with no acute events overnight, patient weaning off of supplemental O2. Plan tostart on beta blockade today. CT output slowed, plan to remove. - Current O2 Requirements: 2L NC 09/16/23: Patient slightly tachycardic this AM; plan to increase PO beta blockade and continue to monitor. Otherwise, the patient is recovering well in the immediate post-op period. Continue on IV diuresis for now with promotion of ambulation and pulm hygiene. - Current O2 Requirements: 2L NC 09/17/23: Continues with no acute events overnight. Patient continues on supplemental O2 today, however weaning down. Plan to continue diuresis today with plan for discharge to home tomorrow. - Current O2 Requirements: 1L NC Assessment & Plan Multivessel Coronary Artery Disease - S/p CABG x 3 on 09/13/[address] Jose Carlos Malagon (TAI-LAD, RA-OM1, SVG-OM2, SVG-PDA) - Continue on ASA 81mg and Atorvastatin 40mg - Continue on metoprolol tartrate to 50mg BID Radial Grafting - S/p radial harvest site - Proritize prevention of HTN Mediastinal Incision - ADULT [employer]ITERACY [employer]ER, C/D/I Acute Post-Op Pain - As expected - Multimodal pain control with scheduled magnesium oxide 400mg QD, gabapentin 100mg TID, and acetaminophen 650 q6h (PRN oxycodone & fentanyl) - Bowel regimen while taking narcotics Risk for Post-Op Arrhythmia - Ventricular wires placed - Discontinue V-wires prior to DC - Telemetry until discharged Acute Postoperative Respiratory Insufficiency - As expected following CABG with post-op atelectasis - Current O2 Requirements: 1L NC - Aggressive coughing and deep breathing exercises. - Incentive spirometry - Out of bed, early and aggressive mobilization with assistance - Oxygen as needed, wean to keep saturation above 92% - ICU vp compliance/internship consulted - Albuterol nebulizers as needed Risk for Fluid Volume Overload - Pre-Op Weight: 94.4kg 09/14: 92.5 kg (net negative 358mL) --> IV furosemide 20mg BID 09/15: 91.8 kg (net negative 1473mL) --> IV furosemide 20mg BID 09/16: 90.7 kg (net negative 3141mL) --> IV furosemide 20mg BID 09/17: 89.4 kg (net negative 4641mL) --> IV furosemide 20mg BID + Metolazone 2.5mg once - Strict I& Os and daily weights Acute Post-Op Blood-Loss Anemia - Pre-Op H/H: 13.2/38.7 09/14: 10.6/31.9 09/15: 9.5/28.8 09/16: 8.9/27.1 09/17: 8.9/26.7 - Monitor h/h in the initial post op period - Multivitamin/iron tablet - Daily CBC while in hospital Post-Op Leukocytosis - Pre-Op WBC: 8.5 09/14: 11.7 09/15: 11 09/16: 10.6 09/17: 7.0 - Afebrile, consider elevations as reactive to surgery - Daily cbc while in hospital Essential HTN - Home Medications: Lisinopril 5mg, Isosorbide mononitrate 30mg, metoprolol succinate 100mg every day - Resumed BB as above - Will transition to succinate at discharge Type 2 DM - Home Medications: Glipizide 5mg, metformin XR 500mg BID - HbA1c: 6.4 - Goal for BG <150 in the post-operative period - SSI Dyslipidemia - Home Medications: Atorvastatin 40mg - Continue on statin therapy as above Hypothyroidism - Home Medications: Levothyroxine 175mcg - Resumed Dyslipidemia - Home Medications: Tamsulosin 0.4mg, Finasteride 5mg - Resumed Risk for Electrolyte Disturbances - Optimize electrolytes per [facility] protocol Bowel Regimen - Senna-S BID - PRN suppositories and miralax Prophylaxis - GI: PPI - DVT: Faisal-Hose & enoxaparin - PT/OT eval-once clinically stable Disposition - CVICU (stepdown status) Patient seen and plan discussed with Dr. Jose Carlos Malagon & Dr. Ramon Romero. STEPHEN Ho * Sal Fung MD - 09/17/2023 8:33 AM EST Subjective: The patient states that still rick a dry cough but says the breathing treatments are helping . He is eager to go to home with [facility] in the upcoming days Objective: Physical Exam Constitutional: No respiratory acute distress, cooperative Eyes: EOMI, clear sclera ENMT: mucous membranes moist, NC Head/Neck: Neck supple, Trachea midline Respiratory/Thorax: CTAB, mild upper airways wheezing, upper airway congestion, no rales or rhonchi Cardiovascular: tachycardia, RRR, distal pulses 2+, nonpitting mild peripheral edema Gastrointestinal: non tender, no palpable masses Musculoskeletal: ROM intact, no gross deformity Neurological: No focal deficits, normal sensation Psychological: Appropriate mood and behavior Skin: Warm and dry, bandage of anterior chest Last Recorded Vitals BP 122/62 Pulse 74 Temp 36.6 C (97.9 F) (Temporal) Resp 19 Wt 89.4 kg (197 lb) SpO2 96% Relevant Results Scheduled medications acetaminophen, 975 mg, oral, q6h aspirin, 81 mg, oral, Daily atorvastatin, 40 mg, oral, Nightly cholecalciferol, 2,000 Units, oral, BID cyanocobalamin, 1,000 mcg, oral, Daily enoxaparin, 40 mg, subcutaneous, Daily finasteride, 5 mg, oral, Daily furosemide, 20 mg, intravenous, q12h gabapentin, 100 mg, oral, TID insulin lispro, 0-15 Units, subcutaneous, Before meals & nightly ipratropium-albuteroL, 3 mL, nebulization, TID [START ON 09/20/2023] levothyroxine, 175 mcg, oral, Weekly lidocaine, 1 patch, transdermal, q24h magnesium oxide, 400 mg, oral, Daily metoprolol tartrate, 50 mg, oral, BID pantoprazole, 40 mg, oral, Daily before breakfast psyllium, 1 packet, oral, Daily sennosides-docusate sodium, 2 tablet, oral, BID tamsulosin, 0.4 mg, oral, Daily Continuous medications PRN medications PRN medications: albumin human, benzocaine-menthol, dextrose OR glucagon, electrolyte-A, fentaNYL, guaiFENesin, ipratropium-albuteroL, magnesium sulfate, magnesium sulfate, metoclopramide OR metoclopramide, naloxone, ondansetron OR ondansetron, oxyCODONE, oxyCODONE, oxygen, potassium chloride, potassium chloride Results for orders placed or performed during the hospital encounter of 09/13/23 (from the past 24 hour(s)) POCT GLUCOSE Result Value Ref Range POCT Glucose 212 (H) 74 - 99 mg/dL POCT GLUCOSE Result Value Ref Range POCT Glucose 213 (H) 74 - 99 mg/dL CBC Result Value Ref Range WBC 7.0 4.4 - 11.3 x10*3/uL nRBC 0.0 0.0 - 0.0 /100 WBCs RBC 2.58 (L) 4.50 - 5.90 x10*6/uL Hemoglobin 8.9 (L) 13.5 - 17.5 g/dL Hematocrit 26.7 (L) 41.0 - 52.0 % MCV 104 (H) 80 - 100 fL MCH 34.5 (H) 26.0 - 34.0 pg MCHC 33.3 32.0 - 36.0 g/dL RDW 13.7 11.5 - 14.5 % Platelets 141 (L) 150 - 450 x10*3/uL Magnesium Result Value Ref Range Magnesium 1.80 1.60 - 2.40 mg/dL Renal Function Panel Result Value Ref Range Glucose 222 (H) 74 - 99 mg/dL Sodium 136 136 - 145 mmol/L Potassium 4.0 3.5 - 5.3 mmol/L Chloride 98 98 - 107 mmol/L Bicarbonate 29 21 - 32 mmol/L Anion Gap 13 10 - 20 mmol/L Urea Nitrogen 47 (H) 6 - 23 mg/dL Creatinine 1.68 (H) 0.50 - 1.30 mg/dL eGFR 42 (L) >60 mL/min/1.73m*2 Calcium 8.8 8.6 - 10.3 mg/dL Phosphorus 3.5 2.5 - 4.9 mg/dL Albumin 3.2 (L) 3.4 - 5.0 g/dL @IMAGES@ Assessment/Plan Daily Progress: 09/15: CXR largely unchanged. [facility] 07/30. Kidney function improving slightly. Off pressors. 09/16/23: Kidney function at baseline. On Lasix 20 Iv bid. Endorsing sore throat and cough, mild upper airway congestion.. Given lozenges and scheduled breathing treatments. Cxr without consolidation or notable pleural effusions. 09/17/23: On RA vs several liters NC, consider walking pulse ox with nursing if concerns arise regarding need for home oxygen. Wean as able. Cr near baseline function. Restart antihypertensives per CT surgery. Possible discharge 09/18-09/19 Assessment & Plan: Neurological System: # Acute postop pain #Lumbar stenosis with neuropathy -Baseline mentation AO x3, will reassess -Avoid excessive caths/ lines, monitor for ICU delirium -off of Precedex, pain management per cardiothoracic surgery Cardiovascular System: # Multivessel CAD status post CABG (09-13) prior ARNEL to RCA #Postop vasoplegia-resolved #Tachycardia #HTN -Monitor hemodynamics closely to maintain MAP >65 -Continue aspirin and statin -Hold NEELA. Restarted home IMDUR 2/ as pressures increased. Restarted home Toprol. Respiratory System: # Postop respiratory insufficiency-improving #ETHAN -Oxygen as needed, currently on nasal cannula. Breathing txs scheduled and prn, IC. -CPAP nightly recommended, patient refusing Gastrointestinal System: -PPI prophylaxis and bowel regimen Endocrine System: # Type 2 diabetes #Hypothyroidism -Accu-checks, SSI every 4 -Continue home levothyroxine Renal/ System: # CKD stage III - near baseline #BPH -Trend BMP, monitor UOP, optimize electrolytes -Continue to monitor urine output and kidney function. Creatinine baseline 1.6. At 1.68 today. Improving since 1.78 09-15. -Continue home tamsulosin and finasteride Hematological System: # Postop anemia #post op thrombocytopenia -monitor CBC and platelet count. Stable Infection Disease System: # Leukocytosis -resolved -Monitor for signs of infection, likely reactive, was given ancef in the surgical period Vent/O2: RA vs several liters NC Lines/Devices: PIV Drips/Fluids: off pressor support DVT PPX: Lovenox Code: Full Sal Fung M.D. PGY-2 Associated attestation - Bill Hood MD - 09/17/2023 2:55 PM EST Patient seen and evaluated. Cough is improving. Restarting home antihypertensives. Anticipate discharge in coming days. * Nely Agee, OT - 09/16/2023 1:44 PM EST Occupational Therapy OT Treatment Patient Name: Ruth Mackey Today's Date: 09/16/2023 Time Calculation Start Time: 1049 Stop Time: 1115 Time Calculation (min): 26 min Assessment: Plan: Treatment Interventions: ADL retraining, Functional transfer training, UE strengthening/ROM, Endurance training, Compensatory technique education OT Frequency: 3 times per week OT Discharge Recommendations: Low intensity level of continued care OT - OK to Discharge: Yes (to next level of care when cleared by medical team) Treatment Interventions: ADL retraining, Functional transfer training, UE strengthening/ROM, Endurance training, Compensatory technique education Subjective Previous Visit Info: OT Last Visit OT Received On: 09/16/23 General: General Prior to Session Communication: Bedside nurse Patient Position Received: Up in chair, Alarm off, not on at start of session Precautions: Precautions Comment: MITT, o2 2 L/min and trial on room air during ambulation Vital Signs: Vital Signs SpO2: (at rest on room air 94%, following ambulation 90%, RN informed) LE Dressing LE Dressing: (threads pants with sba, stand with supervision to pull up over hips.) Toileting Toileting Comments: pt. provided with education to deep breathe/avoid valsalva when having a bm, pt. also instructed in wiping to maintain MITT during task, pt. verbalizes understanding. Functional Standing Tolerance: Functional Standing Tolerance Comments: pt. able to tolerate 3-4 minutes static standing with wh. walker support, supervision overall Bed Mobility/Transfers: Transfers Transfer: (sit<> stand from recliner chair, supervision) Ambulation/Gait Training: Ambulation/Gait Training Ambulation/Gait Training Performed: (sba via wh. walker for mobility within room and hallway) Outcome Measures:[facility] Daily Activity Putting on and taking off regular lower body clothing: A little Bathing (including washing, rinsing, drying): A little Putting on and taking off regular upper body clothing: A little Toileting, which includes using toilet, bedpan or urinal: A little Taking care of personal grooming such as brushing teeth: None Eating Meals: None Daily Activity - Total Score: 20 Education Documentation Precautions, taught by Nely Agee OT at 09/16/2023 1:42 PM. Learner: Patient Readiness: Acceptance Method: Explanation Response: Verbalizes Understanding, Needs Reinforcement ADL Training, taught by Nely Agee OT at 09/16/2023 1:42 PM. Learner: Patient Readiness: Acceptance Method: Explanation Response: Verbalizes Understanding, Needs Reinforcement Precautions, taught by Nely Agee OT at 09/15/2023 1:50 PM. Learner: Patient Readiness: Acceptance Method: Explanation Response: Verbalizes Understanding, Needs Reinforcement ADL Training, taught by Nely Agee OT at 09/15/2023 1:50 PM. Learner: Patient Readiness: Acceptance Method: Explanation Response: Verbalizes Understanding, Needs Reinforcement Education Comments No comments found. OP EDUCATION: Education Education Provided: (MITT as related to transfers/adl, pt. reports no sternal pain during tasks) Goals: Encounter Problems Encounter Problems (Active) OT Goals Increase functional mobility and functional transfers to supervision for bed/chair/toilet with dme prn (Progressing) Start: 09/14/23 Expected End: 09/21/23 increase bue ther ex/activity x 7-10 minutes and increase standing tolerance with supervision x 3-5minutes to promote greater activity tolerance for assist with adl. (Progressing) Start: 09/14/23 Expected End: 09/21/23 Increase ub/lb dressing/bathing to supervision with dme prn (Progressing) Start: 09/14/23 Expected End: 09/21/23 Increase toileting to supervision with dme prn (Progressing) Start: 09/14/23 Expected End: 09/21/23 pt. to apply ec/ws techniques without cues to all mobility/transfer/adl to decrease fatigue/promoteefficient use of energy toward completion of functional tasks. (Progressing) Start: 09/14/23 Expected End: 09/21/23 * Lupillo Mckeon, PT - 09/16/2023 1:16 PM EST Physical Therapy Physical Therapy Treatment Patient Name: Ruth Mackey Today's Date: 09/16/2023 Time Calculation Start Time: 1055 Stop Time: 1109 Time Calculation (min): 14 min Assessment/Plan PT Assessment End of Session Communication: Bedside nurse, Product Engineer End of Session Patient Position: Up in chair, Alarm off, not on at start of session PT Plan Inpatient/Swing Bed or Outpatient: Inpatient PT Plan PT Plan: Skilled PT PT Frequency: 5 times per week PT Discharge Recommendations: Low intensity level of continued care PT - OK to Discharge: Yes General Visit Information: PT Visit PT Received On: 09/16/23 General Co-Treatment: OT Prior to Session Communication: Bedside nurse Patient Position Received: Up in chair, Alarm off, not on at start of session Subjective Precautions: Precautions Medical Precautions: Cardiac precautions Post-Surgical Precautions: Move in the Tube Vital Signs: Objective Pain: Cognition: Cognition Overall Cognitive Status: Within Functional Limits Postural Control: Extremity/Trunk Assessments: Activity Tolerance: Treatments: Bed Mobility Bed Mobility: Yes (in chair) Ambulation/Gait Training Ambulation/Gait Training Performed: Yes (125 ft SBA wh walker) Transfers Transfer: Yes (ind chair) Outcome Measures: [facility] Basic Mobility Turning from your back to your side while in a flat bed without using bedrails: None Moving from lying on your back to sitting on the side of a flat bed without using bedrails: None Moving to and from bed to chair (including a wheelchair): A little Standing up from a chair using your arms (e.g. wheelchair or bedside chair): None To walk in hospital room: A little Climbing 3-5 steps with railing: A little Basic Mobility - Total Score: 21 Education Documentation Precautions, taught by Lupillo Mckeon PT at 09/16/2023 1:15 PM. Learner: Patient Readiness: Acceptance Method: Explanation Response: Verbalizes Understanding ADL Training, taught by Lupillo Mckeon PT at 09/16/2023 1:15 PM. Learner: Patient Readiness: Acceptance Method: Explanation Response: Verbalizes Understanding Mobility Training, taught by Lupillo Mckeon PT at 09/16/2023 1:15 PM. Learner: Patient Readiness: Acceptance Method: Explanation Response: Verbalizes Understanding Education Comments No comments found. OP EDUCATION: Encounter Problems Encounter Problems (Active) PT Problem bed mob (Progressing) Start: 09/14/23 Expected End: 09/21/23 Ind bed mob faye (Progressing) Start: 09/14/23 Expected End: 09/21/23 Ind faye gait/stairs (Progressing) Start: 09/14/23 Expected End: 09/21/23 Amb ind approp device or w/o a device 100 ft> Ind/sba stairs * Mary Campbell Ashley, CAMMY-DISPENSING LEAD - 09/16/2023 10:29 AM EST Cardiac Surgery Progress Note Ruth Mackey is a 78 y.o. male on day 3 of admission presenting with 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 [place] heart with stable angina pectoris (CMS/HCC). Subjective Interval HPI: Seen and assessed patient this AM while they were sitting up in bedside chair; in no acute distress. Review of Systems Constitutional: Negative for decreased appetite and malaise/fatigue. HENT: Negative for congestion. Eyes: Negative for blurred vision and double vision. Cardiovascular: Positive for leg swelling. Negative for chest pain, dyspnea on exertion, irregular heartbeat, orthopnea and palpitations. Respiratory: Negative for cough and shortness of breath. Endocrine: Negative for cold intolerance and heat intolerance. Skin: Negative for nail changes, poor wound healing and rash. Musculoskeletal: Negative for arthritis, muscle cramps, muscle weakness, myalgias and stiffness. Gastrointestinal: Negative for bloating, nausea and vomiting. Genitourinary: Negative for frequency, hesitancy and urgency. Neurological: Positive for weakness. Negative for dizziness, focal weakness and light-headedness. Psychiatric/Behavioral: Negative for altered mental status. Allergic/Immunologic: Negative for environmental allergies. Objective Physical Exam Physical Exam Vitals and nursing note reviewed. Constitutional: General: He is awake. He is not in acute distress. Appearance: Normal appearance. He is not ill-appearing or diaphoretic. Interventions: Nasal cannula in place. HENT: Head: Normocephalic and atraumatic. Nose: Nose normal. Mouth/Throat: Mouth: Mucous membranes are dry. Pharynx: No oropharyngeal exudate. Eyes: Extraocular Movements: Extraocular movements intact. Pupils: Pupils are equal, round, and reactive to light. Cardiovascular: Rate and Rhythm: Normal rate and regular rhythm. Pulses: Normal pulses. Heart sounds: Normal heart sounds, S1 normal and S2 normal. No murmur heard. No friction rub. No gallop. Pulmonary: Effort: Pulmonary effort is normal. No tachypnea, bradypnea or accessory muscle usage. Breath sounds: Examination of the right-lower field reveals decreased breath sounds. Examination ofthe left-lower field reveals decreased breath sounds. Decreased breath sounds present. Chest: Chest wall: Tenderness present. No crepitus or edema. Abdominal: General: Bowel sounds are normal. Palpations: Abdomen is soft. Tenderness: There is no abdominal tenderness. Musculoskeletal: Cervical back: Normal range of motion and neck supple. No edema. Skin: General: Skin is warm. Capillary Refill: Capillary refill takes less than 2 seconds. Comments: Mediastinal incision TRINI, well approximated C/D/I Neurological: Mental Status: He is alert. GCS: GCS eye subscore is 1. GCS verbal subscore is 1. GCS motor subscore is 1. Cranial Nerves: Cranial nerves 2-12 are intact. Psychiatric: Behavior: Behavior is cooperative. Last Recorded Vitals Vitals: 09/16/23 0700 09/16/23 0800 09/16/23 0900 09/16/23 1000 BP: 121/68 125/66 131/69 BP Location: Pulse: 103 (!) 114 108 104 Resp: 18 Temp: TempSrc: SpO2: 95% 94% 94% Weight: Height: Intake/Output last 3 Shifts: I/O last 3 completed shifts: In: 222.4 (2.5 mL/kg) [P.O.:220; I.V.:2.4 (0 mL/kg)] Out: 2805 (30.9 mL/kg) [Urine:2605 (0.8 mL/kg/hr); Chest Tube:200] Weight: 90.7 kg Scheduled medications acetaminophen, 975 mg, oral, q6h aspirin, 81 mg, oral, Daily atorvastatin, 40 mg, oral, Nightly cholecalciferol, 2,000 Units, oral, BID cyanocobalamin, 1,000 mcg, oral, Daily enoxaparin, 40 mg, subcutaneous, Daily finasteride, 5 mg, oral, Daily furosemide, 20 mg, intravenous, q12h gabapentin, 100 mg, oral, TID insulin lispro, 0-15 Units, subcutaneous, q4h ipratropium-albuteroL, 3 mL, nebulization, q4h [START ON 09/20/2023] levothyroxine, 175 mcg, oral, Weekly lidocaine, 1 patch, transdermal, q24h magnesium oxide, 400 mg, oral, Daily metoprolol tartrate, 25 mg, oral, BID pantoprazole, 40 mg, oral, Daily before breakfast psyllium, 1 packet, oral, Daily sennosides-docusate sodium, 2 tablet, oral, BID tamsulosin, 0.4 mg, oral, Daily Continuous medications PRN medications PRN medications: albumin human, benzocaine-menthol, calcium chloride, calcium chloride, dextrose OR glucagon, electrolyte-A, fentaNYL, guaiFENesin, ipratropium-albuteroL, magnesium sulfate, magnesium sulfate, metoclopramide OR metoclopramide, naloxone, ondansetron OR ondansetron, oxyCODONE, oxyCODONE, oxygen, potassium chloride, potassium chloride Relevant Results Labs Results for orders placed or performed during the hospital encounter of 09/13/23 (from the past 24 hour(s)) POCT GLUCOSE Result Value Ref Range POCT Glucose 216 (H) 74 - 99 mg/dL POCT GLUCOSE Result Value Ref Range POCT Glucose 178 (H) 74 - 99 mg/dL POCT GLUCOSE Result Value Ref Range POCT Glucose 202 (H) 74 - 99 mg/dL POCT GLUCOSE Result Value Ref Range POCT Glucose 182 (H) 74 - 99 mg/dL CBC and Auto Differential Result Value Ref Range WBC 10.6 4.4 - 11.3 x10*3/uL nRBC 0.0 0.0 - 0.0 /100 WBCs RBC 2.58 (L) 4.50 - 5.90 x10*6/uL Hemoglobin 8.9 (L) 13.5 - 17.5 g/dL Hematocrit 27.1 (L) 41.0 - 52.0 % MCV 105 (H) 80 - 100 fL MCH 34.5 (H) 26.0 - 34.0 pg MCHC 32.8 32.0 - 36.0 g/dL RDW 13.9 11.5 - 14.5 % Platelets 142 (L) 150 - 450 x10*3/uL Neutrophils % 84.3 40.0 - 80.0 % Immature Granulocytes %, Automated 1.0 (H) 0.0 - 0.9 % Lymphocytes % 6.4 13.0 - 44.0 % Monocytes % 8.0 2.0 - 10.0 % Eosinophils % 0.2 0.0 - 6.0 % Basophils % 0.1 0.0 - 2.0 % Neutrophils Absolute 8.92 (H) 1.60 - 5.50 x10*3/uL Immature Granulocytes Absolute, Automated 0.11 0.00 - 0.50 x10*3/uL Lymphocytes Absolute 0.68 (L) 0.80 - 3.00 x10*3/uL Monocytes Absolute 0.85 (H) 0.05 - 0.80 x10*3/uL Eosinophils Absolute 0.02 0.00 - 0.40 x10*3/uL Basophils Absolute 0.01 0.00 - 0.10 x10*3/uL Magnesium Result Value Ref Range Magnesium 1.72 1.60 - 2.40 mg/dL Renal Function Panel Result Value Ref Range Glucose 183 (H) 74 - 99 mg/dL Sodium 136 136 - 145 mmol/L Potassium 4.2 3.5 - 5.3 mmol/L Chloride 99 98 - 107 mmol/L Bicarbonate 30 21 - 32 mmol/L Anion Gap 11 10 - 20 mmol/L Urea Nitrogen 39 (H) 6 - 23 mg/dL Creatinine 1.70 (H) 0.50 - 1.30 mg/dL eGFR 41 (L) >60 mL/min/1.73m*2 Calcium 8.8 8.6 - 10.3 mg/dL Phosphorus 3.2 2.5 - 4.9 mg/dL Albumin 3.3 (L) 3.4 - 5.0 g/dL POCT GLUCOSE Result Value Ref Range POCT Glucose 195 (H) 74 - 99 mg/dL POCT GLUCOSE Result Value Ref Range POCT Glucose 174 (H) 74 - 99 mg/dL Cardiology Tests Echo: Transthoracic Echo (TTE) Complete 06/21/2023 PHYSICIAN INTERPRETATION: Left Ventricle: Left ventricular systolic function is normal, with an estimated ejection fraction of 60%. There are no regional wall motion abnormalities. The left ventricular cavity size is normal. Abnormal (paradoxical) septal motion, consistent with left bundle branch block. Spectral Doppler shows an impaired relaxation pattern of left ventricular diastolic filling. Left Atrium: The left atrium is normal in size. A bubble study using agitated saline was performed.Bubble study is negative. Right Ventricle: The right ventricle is normal in size. There is normal right ventricular global systolic function. Right Atrium: The right atrium is normal in size. Aortic Valve: The aortic valve is trileaflet. There is no evidence of aortic valve regurgitation. The peak instantaneous gradient of the aortic valve is 12.7 mmHg. The mean gradient of the aortic valve is 7.0 mmHg. Mitral Valve: The mitral valve is normal in structure. There is no evidence of mitral valve regurgitation. Tricuspid Valve: The tricuspid valve is structurally normal. There is trace tricuspid regurgitation. Pulmonic Valve: The pulmonic valve is not well visualized. There is no indication of pulmonic valveregurgitation. Pericardium: There is no pericardial effusion noted. Aorta: The aortic root is normal. CONCLUSIONS: 1. Left ventricular systolic function is normal with a 60% estimated ejection fraction. 2. Abnormal septal motion consistent with left bundle branch block. 3. Spectral Doppler shows an impaired relaxation pattern of left ventricular diastolic filling. Ejection Fractions: EF Date/Time Value Ref Range Status 06/21/2023 12:55 PM 66 Cath: Cardiac catheterization - coronary 07/29/2023 Coronary Angiography: The coronary circulation is right dominant. Left Main Coronary Artery: The left main coronary artery is a normal caliber vessel. The left main arises normally from the left coronary sinus of Valsalva and bifurcates into the LAD and circumflex coronary arteries. The leftmain coronary artery showed atherosclerotic disease and calcification. The distal left main coronary artery showed 60% stenosis. This lesion was calcified. Left Anterior Descending Coronary Artery Distribution: The left anterior descending coronary artery is a normal caliber vessel. The LAD arises normally from the left main coronary artery. The LAD demonstrated a normal vessel, atherosclerotic disease and calcification. The proximal left anterior descending coronary artery showed 70% stenosis. This lesion was diffuse. The 1st diagonal branch is a normal caliber vessel. The 1st diagonal branch showed nosignificant disease or stenosis greater than 30%. Circumflex Coronary Artery Distribution: The circumflex coronary artery is a normal caliber vessel. The circumflex arises normally from the left main coronary artery and terminates in the AV groove. The circumflex revealed atherosclerotic disease and calcification. The mid circumflex coronary artery showed 99% stenosis. This lesion was calcified. The 1st obtuse marginal branch is a small caliber vessel. The 1st obtuse marginal branch showed atherosclerotic disease. The ostial 1st obtuse marginal branch showed 99% stenosis. This lesionwas diffuse. The 2nd obtuse marginal branch is a small caliber vessel. The 2nd obtuse marginal branch demonstrated atherosclerotic disease. The ostial 2nd obtuse marginal branch demonstrated 99% stenosis. This lesion was diffuse. Right Coronary Artery Distribution: The right coronary artery is a normal caliber vessel. The RCA arises normally from the right sinus of Valsalva. The RCA showed no significant disease or stenosis greater than 30%. Patent stent to ostial RCA. The right posterolateral branch is a normal caliber vessel. The right posterolateral branchshowed no significant disease or stenosis greater than 30%. The right posterior descending artery is a small caliber vessel. The right posterior descending artery showed atherosclerotic disease. The proximal to mid right posterior descending artery revealed 70% stenosis. This lesion was diffuse. Coronary Lesion Summary: Vessel Stenosis Vessel Segment Left Main 60% stenosis distal LAD 70% stenosis proximal Circumflex 99% stenosis mid OM 1 99% stenosis ostial OM 2 99% stenosis ostial RPDA 70% stenosis proximal to mid Stress Test: Nuclear Stress Test 05/31/2023 FINDINGS: Small fixed perfusion defect in the basal lateral wall associated decreased wall motion. The left ventricle is normal in size. Gated images demonstrate decreased LV wall motion in the basal lateral wall with an LV EF estimated at 63%. Attenuation correction CT images demonstrate no gross anatomic abnormalities. IMPRESSION: 1. 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 2. The left ventricle is normal in size. 3. Decreased LV wall motion in the basal lateral wall with an LV EF estimated at 63%. History of Present Illness: Ruth Mackey is a 77 y.o. male with a PMH significant for CAD (s/pPCI in 2018), Essential HTN, HLD, T2DM, and Hypothyroidism who presents to [facility] on 09/13/2023 for a staged CABG with cardiac surgeon, Dr. Jose Carlos Malagon. Daily Event 09/13/23: Patient arrived to the ICU in critically ill but stable condition. Intubated & sedated, s/p On-pump CABG x4. - Vital Signs: HR 80, BP 112/88, SpO2 100% - Hemodynamics: CVP 11, CO 5.1, CI2.5 , SVR 1854 - Ventilator Settings: PRVC-AC / FiO2 / PEEP / RR - Pump time: 72 minutes Intake & Output: - Initial R Pleural Chest Tube: 40mL - Initial L Pleural Chest Tube: 30mL - Initial Mediastinal Chest Tube: 50mL 09/14/23: No acute events overnight. Patient extubated in the immediate post-op period. This AM, hewas sitting up in the chair with only the usual post op complaints of pain. No current use of vasopressors/inotropes as they had been weaned off. Throughout the day, the patient was with hemodynamic stability. Plan to discontinue flow track therapy and remove a-line. Chest tubes with moderate output, will plan to remove this evening vs tomorrow AM. Otherwise, starting patient on IV diuresis. - Current O2 Requirements: 2L NC 09/15/23: Continues with no acute events overnight, patient weaning off of supplemental O2. Plan tostart on beta blockade today. CT output slowed, plan to remove. - Current O2 Requirements: 2L NC 09/16/23: Patient slightly tachycardic this AM; plan to increase PO beta blockade and continue to monitor. Otherwise, the patient is recovering well in the immediate post-op period. Continue on IV diuresis for now with promotion of ambulation and pulm hygiene. - Current O2 Requirements: 2L NC Assessment & Plan Multivessel Coronary Artery Disease - S/p CABG x 3 on 09/13/[address] Jose Carlos Malagon (TAI-LAD, RA-OM1, SVG-OM2, SVG-PDA) - Continue on ASA 81mg and Atorvastatin 40mg - Increase metoprolol tartrate to 50mg BID Radial Grafting - S/p radial harvest site - Proritize prevention of HTN Mediastinal Incision - ADULT [employer]ITER[employer]Y [employer], C/D/I Acute Post-Op Pain - As expected - Multimodal pain control with scheduled magnesium oxide 400mg QD, gabapentin 100mg TID, and acetaminophen 650 q6h (PRN oxycodone & fentanyl) - Bowel regimen while taking narcotics Risk for Post-Op Arrhythmia - Ventricular wires placed - Discontinue V-wires prior to DC - Telemetry until discharged Acute Postoperative Respiratory Insufficiency - As expected following CABG with post-op atelectasis - Current O2 Requirements: 2L NC - Aggressive coughing and deep breathing exercises. - Incentive spirometry - Out of bed, early and aggressive mobilization with assistance - Oxygen as needed, wean to keep saturation above 92% - ICU vp compliance/internship consulted - Albuterol nebulizers as needed Risk for Fluid Volume Overload - Pre-Op Weight: 94.4kg 1/30: 92.5 kg (net negative 358mL) --> IV furosemide 20mg BID 09/15: 91.8 kg (net negative 1473mL) --> IV furosemide 20mg BID 09/16: 90.7 kg (net negative 3141mL) --> IV furosemide 20mg BID - Strict I& Os and daily weights Acute Post-Op Blood-Loss Anemia - Pre-Op H/H: 13.2/38.7 09/14: 10.6/31.9 09/15: 9.5/28.8 09/16: 8.9/27.1 - Monitor h/h in the initial post op period - Multivitamin/iron tablet - Daily CBC while in hospital Post-Op Leukocytosis - Pre-Op WBC: 8.5 09/14: 11.7 09/15: 11 09/16: 10.6 - Afebrile, consider elevations as reactive to surgery - Daily cbc while in hospital Essential HTN - Home Medications: Lisinopril 5mg, Isosorbide mononitrate 30mg, metoprolol succinate 100mg every day - Resumed BB as above - Will transition to succinate at discharge Type 2 DM - Home Medications: Glipizide 5mg, metformin XR 500mg BID - HbA1c: 6.4 - Goal for BG <150 in the post-operative period - SSI Dyslipidemia - Home Medications: Atorvastatin 40mg - Continue on statin therapy as above Hypothyroidism - Home Medications: Levothyroxine 175mcg - Resumed Dyslipidemia - Home Medications: Tamsulosin 0.4mg, Finasteride 5mg - Resumed Risk for Electrolyte Disturbances - Optimize electrolytes per [facility] protocol Bowel Regimen - Senna-S BID - PRN suppositories and miralax Prophylaxis - GI: PPI - DVT: Faisal-Hose & enoxaparin - PT/OT eval-once clinically stable Disposition - CVICU (stepdown status) Patient seen and plan discussed with Dr. Jose Carlos Malagon & Dr. Ramon Romero. STEPHEN Ho * Sal Fung MD - 09/16/2023 9:50 AM EST Subjective: The patient states that he is having a dry, nonproductive cough. He says that he has some coughing fits occasionally and becomes short of breath when this occurs. Willing to try breathing treatments as he endorsed improvement following the Duo nebs. Objective: Physical Exam Constitutional: No respiratory acute distress, cooperative Eyes: EOMI, clear sclera ENMT: mucous membranes moist, NC Head/Neck: Neck supple, Trachea midline Respiratory/Thorax: CTAB, mild upper airways wheezing, upper airway congestion, no rales or rhonchi Cardiovascular: tachycardia, RRR, distal pulses 2+, nonpitting mild peripheral edema Gastrointestinal: non tender, no palpable masses Musculoskeletal: ROM intact, no gross deformity Neurological: No focal deficits, normal sensation Psychological: Appropriate mood and behavior Skin: Warm and dry, bandage of anterior chest Last Recorded Vitals BP 125/66 Pulse 108 Temp 37.2 C (99 F) (Temporal) Resp 19 Wt 90.7 kg (200 lb) SpO2 94% Relevant Results Scheduled medications acetaminophen, 975 mg, oral, q6h aspirin, 81 mg, oral, Daily atorvastatin, 40 mg, oral, Nightly cholecalciferol, 2,000 Units, oral, BID cyanocobalamin, 1,000 mcg, oral, Daily enoxaparin, 40 mg, subcutaneous, Daily finasteride, 5 mg, oral, Daily furosemide, 20 mg, intravenous, q12h gabapentin, 100 mg, oral, TID insulin lispro, 0-15 Units, subcutaneous, q4h ipratropium-albuteroL, 3 mL, nebulization, q4h [START ON 09/20/2023] levothyroxine, 175 mcg, oral, Weekly lidocaine, 1 patch, transdermal, q24h magnesium oxide, 400 mg, oral, Daily metoprolol tartrate, 25 mg, oral, BID pantoprazole, 40 mg, oral, Daily before breakfast psyllium, 1 packet, oral, Daily sennosides-docusate sodium, 2 tablet, oral, BID tamsulosin, 0.4 mg, oral, Daily Continuous medications PRN medications PRN medications: albumin human, benzocaine-menthol, calcium chloride, calcium chloride, dextrose OR glucagon, electrolyte-A, fentaNYL, guaiFENesin, ipratropium-albuteroL, magnesium sulfate, magnesium sulfate, metoclopramide OR metoclopramide, naloxone, ondansetron OR ondansetron, oxyCODONE, oxyCODONE, oxygen, potassium chloride, potassium chloride Results for orders placed or performed during the hospital encounter of 09/13/23 (from the past 24 hour(s)) POCT GLUCOSE Result Value Ref Range POCT Glucose 216 (H) 74 - 99 mg/dL POCT GLUCOSE Result Value Ref Range POCT Glucose 178 (H) 74 - 99 mg/dL POCT GLUCOSE Result Value Ref Range POCT Glucose 202 (H) 74 - 99 mg/dL POCT GLUCOSE Result Value Ref Range POCT Glucose 182 (H) 74 - 99 mg/dL CBC and Auto Differential Result Value Ref Range WBC 10.6 4.4 - 11.3 x10*3/uL nRBC 0.0 0.0 - 0.0 /100 WBCs RBC 2.58 (L) 4.50 - 5.90 x10*6/uL Hemoglobin 8.9 (L) 13.5 - 17.5 g/dL Hematocrit 27.1 (L) 41.0 - 52.0 % MCV 105 (H) 80 - 100 fL MCH 34.5 (H) 26.0 - 34.0 pg MCHC 32.8 32.0 - 36.0 g/dL RDW 13.9 11.5 - 14.5 % Platelets 142 (L) 150 - 450 x10*3/uL Neutrophils % 84.3 40.0 - 80.0 % Immature Granulocytes %, Automated 1.0 (H) 0.0 - 0.9 % Lymphocytes % 6.4 13.0 - 44.0 % Monocytes % 8.0 2.0 - 10.0 % Eosinophils % 0.2 0.0 - 6.0 % Basophils % 0.1 0.0 - 2.0 % Neutrophils Absolute 8.92 (H) 1.60 - 5.50 x10*3/uL Immature Granulocytes Absolute, Automated 0.11 0.00 - 0.50 x10*3/uL Lymphocytes Absolute 0.68 (L) 0.80 - 3.00 x10*3/uL Monocytes Absolute 0.85 (H) 0.05 - 0.80 x10*3/uL Eosinophils Absolute 0.02 0.00 - 0.40 x10*3/uL Basophils Absolute 0.01 0.00 - 0.10 x10*3/uL Magnesium Result Value Ref Range Magnesium 1.72 1.60 - 2.40 mg/dL Renal Function Panel Result Value Ref Range Glucose 183 (H) 74 - 99 mg/dL Sodium 136 136 - 145 mmol/L Potassium 4.2 3.5 - 5.3 mmol/L Chloride 99 98 - 107 mmol/L Bicarbonate 30 21 - 32 mmol/L Anion Gap 11 10 - 20 mmol/L Urea Nitrogen 39 (H) 6 - 23 mg/dL Creatinine 1.70 (H) 0.50 - 1.30 mg/dL eGFR 41 (L) >60 mL/min/1.73m*2 Calcium 8.8 8.6 - 10.3 mg/dL Phosphorus 3.2 2.5 - 4.9 mg/dL Albumin 3.3 (L) 3.4 - 5.0 g/dL POCT GLUCOSE Result Value Ref Range POCT Glucose 195 (H) 74 - 99 mg/dL POCT GLUCOSE Result Value Ref Range POCT Glucose 174 (H) 74 - 99 mg/dL @IMAGES@ Assessment/Plan Daily Progress: 09/15: CXR largely unchanged. [facility] 07/30. Kidney function improving slightly. Off pressors. 09/16/23: Kidney function at baseline. On Lasix 20 Iv bid. Endorsing sore throat and cough, mild upper airway congestion.. Given lozenges and scheduled breathing treatments. Cxr without consolidation or notable pleural effusions. Assessment & Plan: Neurological System: # Acute postop pain #Lumbar stenosis with neuropathy -Baseline mentation AO x3, will reassess -Avoid excessive caths/ lines, monitor for ICU delirium -off of Precedex, pain management per cardiothoracic surgery Cardiovascular System: # Multivessel CAD status post CABG (09-13) prior ARNEL to RCA #Postop vasoplegia-resolved #Tachycardia #HTN -Monitor hemodynamics closely to maintain MAP >65 -Continue aspirin and statin -Hold Imdur, lisinopril, Consider restarting 2/2 if pressures increase. Restarted home Toprol. Respiratory System: # Postop respiratory insufficiency-improving #ETHAN -Oxygen as needed, currently on nasal cannula. Breathing txs scheduled and prn, IC. -CPAP nightly recommended, patient refusing Gastrointestinal System: -PPI prophylaxis and bowel regimen Endocrine System: # Type 2 diabetes #Hypothyroidism -Accu-checks, SSI every 4 -Continue home levothyroxine Renal/ System: # CKD stage III - near baseline #BPH -Trend BMP, monitor UOP, optimize electrolytes -Continue to monitor urine output and kidney function. Creatinine baseline 1.6. At 1.7 today. Improving since 1.78 09-15. -Continue home tamsulosin and finasteride Hematological System: # Postop anemia and thrombocytopenia -monitor CBC and platelet count. Stable Infection Disease System: # Leukocytosis -resolved -Monitor for signs of infection, likely reactive, was given ancef in the surgical period Vent/O2: 2L NC Lines/Devices: PIV Drips/Fluids: off pressor support DVT PPX: Lovenox Code: Full Sal Fung M.D. PGY-2 Associated attestation - Bill Hood MD - 09/16/2023 3:24 PM EST Overall patient continues to improve. Kidney function near baseline. Continue ambulation wean oxygen as tolerated. * Nely Agee, OT - 09/15/2023 1:52 PM EST Occupational Therapy OT Treatment Patient Name: Ruth Mackey Today's Date: 09/15/2023 Time Calculation Start Time: 935 Stop Time: 1000 Time Calculation (min): 24 min Assessment: End of Session Patient Position: Up in chair, Alarm off, not on at start of session Plan: Treatment Interventions: ADL retraining, Functional transfer training, UE strengthening/ROM, Endurance training, Compensatory technique education OT Frequency: 3 times per week OT Discharge Recommendations: Low intensity level of continued care OT - OK to Discharge: Yes (to next level of care when cleared by medical team) Treatment Interventions: ADL retraining, Functional transfer training, UE strengthening/ROM, Endurance training, Compensatory technique education Subjective Previous Visit Info: OT Last Visit OT Received On: 09/15/23 General: General Prior to Session Communication: Bedside nurse Patient Position Received: Up in chair, Alarm off, not on at start of session Precautions: Precautions Comment: cardiac, MITT, o2 5 L/min, chest tubes x 3 Vital Signs: Vital Signs Heart Rate: (110's bpm at rest, with ambulation in the daugherty increased to 130's briefly, then 120's until seated and resting returned to 110's) Pain: Objective Cognition: Cognition Overall Cognitive Status: Within Functional Limits Coordination: Activities of Daily Living: LE Dressing LE Dressing: (threaded pants with min assist x 1 and cues for sequencing, stand with sba to pull upover hips. unthreaded pants with sba and mod assist to pull off of pt's BLE's) Functional Standing Tolerance: Functional Standing Tolerance Comments: pt. able to tolerate 2-3 minutes static standing with support of wh. walker and without, sba overall for balance Bed Mobility/Transfers: Transfers Transfer: (sit<> stand from recliner chair completed with sba and cues for hand placement) Ambulation/Gait Training: Ambulation/Gait Training Ambulation/Gait Training Performed: (mobility via the nezzie in the hallway completed with sba/cga,cues for deep breathing/energy conservation) Outcome Measures: Education Documentation Precautions, taught by Nely Agee OT at 09/15/2023 1:50 PM. Learner: Patient Readiness: Acceptance Method: Explanation Response: Verbalizes Understanding, Needs Reinforcement ADL Training, taught by Nely Agee OT at 09/15/2023 1:50 PM. Learner: Patient Readiness: Acceptance Method: Explanation Response: Verbalizes Understanding, Needs Reinforcement Goals: Encounter Problems Encounter Problems (Active) OT Goals Increase functional mobility and functional transfers to supervision for bed/chair/toilet with dme prn (Progressing) Start: 09/14/23 Expected End: 09/21/23 increase bue ther ex/activity x 7-10 minutes and increase standing tolerance with supervision x 3-5minutes to promote greater activity tolerance for assist with adl. (Progressing) Start: 09/14/23 Expected End: 09/21/23 Increase ub/lb dressing/bathing to supervision with dme prn (Progressing) Start: 09/14/23 Expected End: 09/21/23 Increase toileting to supervision with dme prn (Progressing) Start: 09/14/23 Expected End: 09/21/23 pt. to apply ec/ws techniques without cues to all mobility/transfer/adl to decrease fatigue/promoteefficient use of energy toward completion of functional tasks. (Progressing) Start: 09/14/23 Expected End: 09/21/23 * Lupillo Mckeon, PT - 09/15/2023 1:46 PM EST Physical Therapy Physical Therapy Treatment Patient Name: Ruth Mackey Today's Date: 09/15/2023 Time Calculation Start Time: 934 Stop Time: 999 Time Calculation (min): 25 min Assessment/Plan PT Assessment End of Session Patient Position: Up in chair, Alarm off, not on at start of session PT Plan Inpatient/Swing Bed or Outpatient: Inpatient PT Plan PT Plan: Skilled PT PT Frequency: 5 times per week PT Discharge Recommendations: Low intensity level of continued care PT - OK to Discharge: Yes General Visit Information: PT Visit PT Received On: 09/15/23 General Prior to Session Communication: Bedside nurse Patient Position Received: Up in chair, Alarm off, not on at start of session Subjective Precautions: Precautions Medical Precautions: Cardiac precautions, Fall precautions Post-Surgical Precautions: Move in the Tube Vital Signs: Vital Signs Heart Rate: (!) 122 SpO2: 98 % BP: 138/73 Objective Pain: Pain Assessment Pain Score: 0 - No pain Cognition: Cognition Overall Cognitive Status: Within Functional Limits Postural Control: Extremity/Trunk Assessments: Activity Tolerance: Treatments: Bed Mobility Bed Mobility: Yes (MIN X 1) Ambulation/Gait Training Ambulation/Gait Training Performed: Yes (125 ft/Nezzi walker/CGA) Transfers Transfer: Yes (CGA) Outcome Measures: [facility] Basic Mobility Turning from your back to your side while in a flat bed without using bedrails: A little Moving from lying on your back to sitting on the side of a flat bed without using bedrails: A little Moving to and from bed to chair (including a wheelchair): A little Standing up from a chair using your arms (e.g. wheelchair or bedside chair): A little To walk in hospital room: A little Climbing 3-5 steps with railing: Total Basic Mobility - Total Score: 16 Education Documentation Precautions, taught by Lupillo Mckeon, PT at 09/15/2023 1:44 PM. Learner: Patient Readiness: Acceptance Method: Explanation Response: Verbalizes Understanding ADL Training, taught by Lupillo Mckeon PT at 09/15/2023 1:44 PM. Learner: Patient Readiness: Acceptance Method: Explanation Response: Verbalizes Understanding Mobility Training, taught by Lupillo Mckeon PT at 09/15/2023 1:44 PM. Learner: Patient Readiness: Acceptance Method: Explanation Response: Verbalizes Understanding Education Comments No comments found. OP EDUCATION: Encounter Problems Encounter Problems (Active) PT Problem bed mob (Progressing) Start: 09/14/23 Expected End: 09/21/23 Ind bed mob faye (Progressing) Start: 09/14/23 Expected End: 09/21/23 Ind faye gait/stairs (Progressing) Start: 09/14/23 Expected End: 09/21/23 Amb ind approp device or w/o a device 100 ft> Ind/sba stairs * Mary Garcia, HAND TACKER-DISPENSING LEAD - 09/15/2023 10:02 AM EST Cardiac Surgery Progress Note Ruth Mackey is a 78 y.o. male on day 2 of admission presenting with 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 [place] heart with stable angina pectoris (CMS/HCC). Subjective Interval HPI: Seen and assessed patient this AM while they were sitting up in bedside chair; in no acute distress. Review of Systems Constitutional: Negative for decreased appetite and malaise/fatigue. HENT: Negative for congestion. Eyes: Negative for blurred vision and double vision. Cardiovascular: Positive for leg swelling. Negative for chest pain, dyspnea on exertion, irregular heartbeat, orthopnea and palpitations. Respiratory: Negative for cough and shortness of breath. Endocrine: Negative for cold intolerance and heat intolerance. Skin: Negative for nail changes, poor wound healing and rash. Musculoskeletal: Negative for arthritis, muscle cramps, muscle weakness, myalgias and stiffness. Gastrointestinal: Negative for bloating, nausea and vomiting. Genitourinary: Negative for frequency, hesitancy and urgency. Neurological: Positive for weakness. Negative for dizziness, focal weakness and light-headedness. Psychiatric/Behavioral: Negative for altered mental status. Allergic/Immunologic: Negative for environmental allergies. Objective Physical Exam Physical Exam Vitals and nursing note reviewed. Constitutional: General: He is awake. He is not in acute distress. Appearance: Normal appearance. He is ill-appearing. He is not diaphoretic. Interventions: Nasal cannula in place. HENT: Head: Normocephalic and atraumatic. Nose: Nose normal. Mouth/Throat: Mouth: Mucous membranes are dry. Pharynx: No oropharyngeal exudate. Eyes: Extraocular Movements: Extraocular movements intact. Pupils: Pupils are equal, round, and reactive to light. Neck: Comments: R internal jugular triple lumen catheter Cardiovascular: Rate and Rhythm: Normal rate and regular rhythm. Pulses: Normal pulses. Heart sounds: Normal heart sounds, S1 normal and S2 normal. No murmur heard. No friction rub. No gallop. Pulmonary: Effort: Pulmonary effort is normal. No tachypnea, bradypnea or accessory muscle usage. Breath sounds: Examination of the right-lower field reveals decreased breath sounds. Examination ofthe left-lower field reveals decreased breath sounds. Decreased breath sounds present. Chest: Chest wall: Tenderness present. Musculoskeletal: Cervical back: Normal range of motion and neck supple. No edema. Skin: General: Skin is cool. Capillary Refill: Capillary refill takes less than 2 seconds. Comments: Mediastinal incision with post-op dressing Neurological: Mental Status: He is alert. GCS: GCS eye subscore is 1. GCS verbal subscore is 1. GCS motor subscore is 1. Cranial Nerves: Cranial nerves 2-12 are intact. Psychiatric: Behavior: Behavior is cooperative. Last Recorded Vitals Vitals: 09/15/23 0630 09/15/23 0700 09/15/23 0800 09/15/23 0900 BP: 114/58 136/60 BP Location: Right arm Patient Position: Sitting Pulse: 96 98 109 107 Resp: 18 19 24 20 Temp: 36.5 C (97.7 F) TempSrc: Temporal SpO2: 96% 96% 95% 94% Weight: Height: Intake/Output last 3 Shifts: I/O last 3 completed shifts: In: 250 (2.7 mL/kg) [I.V.:50 (0.5 mL/kg); IV Piggyback:200] Out: 2590 (28.2 mL/kg) [Urine:2000 (0.6 mL/kg/hr); Chest Tube:590] Weight: 91.8 kg Scheduled medications acetaminophen, 975 mg, oral, q6h aspirin, 81 mg, oral, Daily atorvastatin, 40 mg, oral, Nightly cholecalciferol, 2,000 Units, oral, BID cyanocobalamin, 1,000 mcg, oral, Daily enoxaparin, 40 mg, subcutaneous, Daily finasteride, 5 mg, oral, Daily furosemide, 20 mg, intravenous, q12h gabapentin, 100 mg, oral, TID insulin lispro, 0-15 Units, subcutaneous, q4h ipratropium-albuteroL, 3 mL, nebulization, TID [START ON 09/20/2023] levothyroxine, 175 mcg, oral, Weekly lidocaine, 1 patch, transdermal, q24h magnesium oxide, 400 mg, oral, Daily pantoprazole, 40 mg, oral, Daily before breakfast psyllium, 1 packet, oral, Daily sennosides-docusate sodium, 2 tablet, oral, BID tamsulosin, 0.4 mg, oral, Daily Continuous medications PRN medications PRN medications: albumin human, calcium chloride, calcium chloride, dextrose OR glucagon, electrolyte-A, fentaNYL, ipratropium-albuteroL, magnesium sulfate, magnesium sulfate, metoclopramide OR metoclopramide, naloxone, ondansetron OR ondansetron, oxyCODONE, oxyCODONE, oxygen, potassiumchloride, potassium chloride Relevant Results Labs Results for orders placed or performed during the hospital encounter of 09/13/23 (from the past 24 hour(s)) Electrocardiogram, 12-lead PRN ACS symptoms Result Value Ref Range Systolic blood pressure 102 mmHg Diastolic blood pressure 55 mmHg Ventricular Rate 81 BPM Atrial Rate 81 BPM WV Interval 174 ms QRS Duration 110 ms QT Interval 430 ms QTC Calculation(Bazett) 499 ms P Fate 60 degrees R Fate -34 degrees T Fate 37 degrees QRS Count 13 beats Q Onset 214 ms P Onset 127 ms P Offset 161 ms T Offset 429 ms QTC Fredericia 475 ms Electrocardiogram, 12-lead PRN ACS symptoms Result Value Ref Range Systolic blood pressure 112 mmHg Diastolic blood pressure 54 mmHg Ventricular Rate 71 BPM Atrial Rate 71 BPM WV Interval 156 ms QRS Duration 134 ms QT Interval 404 ms QTC Calculation(Bazett) 439 ms P Fate 37 degrees R Fate 68 degrees T Fate 2 degrees QRS Count 12 beats Q Onset 214 ms P Onset 136 ms P Offset 173 ms T Offset 416 ms QTC Fredericia 427 ms POCT GLUCOSE Result Value Ref Range POCT Glucose 203 (H) 74 - 99 mg/dL POCT GLUCOSE Result Value Ref Range POCT Glucose 205 (H) 74 - 99 mg/dL POCT GLUCOSE Result Value Ref Range POCT Glucose 188 (H) 74 - 99 mg/dL POCT GLUCOSE Result Value Ref Range POCT Glucose 183 (H) 74 - 99 mg/dL Magnesium Result Value Ref Range Magnesium 2.02 1.60 - 2.40 mg/dL CBC Result Value Ref Range WBC 11.9 (H) 4.4 - 11.3 x10*3/uL nRBC 0.0 0.0 - 0.0 /100 WBCs RBC 2.77 (L) 4.50 - 5.90 x10*6/uL Hemoglobin 9.5 (L) 13.5 - 17.5 g/dL Hematocrit 28.8 (L) 41.0 - 52.0 % MCV 104 (H) 80 - 100 fL MCH 34.3 (H) 26.0 - 34.0 pg MCHC 33.0 32.0 - 36.0 g/dL RDW 13.7 11.5 - 14.5 % Platelets 127 (L) 150 - 450 x10*3/uL Renal Function Panel Result Value Ref Range Glucose 140 (H) 74 - 99 mg/dL Sodium 136 136 - 145 mmol/L Potassium 3.8 3.5 - 5.3 mmol/L Chloride 102 98 - 107 mmol/L Bicarbonate 29 21 - 32 mmol/L Anion Gap 9 (L) 10 - 20 mmol/L Urea Nitrogen 31 (H) 6 - 23 mg/dL Creatinine 1.78 (H) 0.50 - 1.30 mg/dL eGFR 39 (L) >60 mL/min/1.73m*2 Calcium 8.9 8.6 - 10.3 mg/dL Phosphorus 3.4 2.5 - 4.9 mg/dL Albumin 3.4 3.4 - 5.0 g/dL POCT GLUCOSE Result Value Ref Range POCT Glucose 151 (H) 74 - 99 mg/dL POCT GLUCOSE Result Value Ref Range POCT Glucose 185 (H) 74 - 99 mg/dL Cardiology Tests Echo: Transthoracic Echo (TTE) Complete 06/21/2023 PHYSICIAN INTERPRETATION: Left Ventricle: Left ventricular systolic function is normal, with an estimated ejection fraction of 60%. There are no regional wall motion abnormalities. The left ventricular cavity size is normal. Abnormal (paradoxical) septal motion, consistent with left bundle branch block. Spectral Doppler shows an impaired relaxation pattern of left ventricular diastolic filling. Left Atrium: The left atrium is normal in size. A bubble study using agitated saline was performed.Bubble study is negative. Right Ventricle: The right ventricle is normal in size. There is normal right ventricular global systolic function. Right Atrium: The right atrium is normal in size. Aortic Valve: The aortic valve is trileaflet. There is no evidence of aortic valve regurgitation. The peak instantaneous gradient of the aortic valve is 12.7 mmHg. The mean gradient of the aortic valve is 7.0 mmHg. Mitral Valve: The mitral valve is normal in structure. There is no evidence of mitral valve regurgitation. Tricuspid Valve: The tricuspid valve is structurally normal. There is trace tricuspid regurgitation. Pulmonic Valve: The pulmonic valve is not well visualized. There is no indication of pulmonic valveregurgitation. Pericardium: There is no pericardial effusion noted. Aorta: The aortic root is normal. CONCLUSIONS: 1. Left ventricular systolic function is normal with a 60% estimated ejection fraction. 2. Abnormal septal motion consistent with left bundle branch block. 3. Spectral Doppler shows an impaired relaxation pattern of left ventricular diastolic filling. Ejection Fractions: EF Date/Time Value Ref Range Status 06/21/2023 12:55 PM 66 Cath: Cardiac catheterization - coronary 07/29/2023 Coronary Angiography: The coronary circulation is right dominant. Left Main Coronary Artery: The left main coronary artery is a normal caliber vessel. The left main arises normally from the left coronary sinus of Valsalva and bifurcates into the LAD and circumflex coronary arteries. The leftmain coronary artery showed atherosclerotic disease and calcification. The distal left main coronary artery showed 60% stenosis. This lesion was calcified. Left Anterior Descending Coronary Artery Distribution: The left anterior descending coronary artery is a normal caliber vessel. The LAD arises normally from the left main coronary artery. The LAD demonstrated a normal vessel, atherosclerotic disease and calcification. The proximal left anterior descending coronary artery showed 70% stenosis. This lesion was diffuse. The 1st diagonal branch is a normal caliber vessel. The 1st diagonal branch showed nosignificant disease or stenosis greater than 30%. Circumflex Coronary Artery Distribution: The circumflex coronary artery is a normal caliber vessel. The circumflex arises normally from the left main coronary artery and terminates in the AV groove. The circumflex revealed atherosclerotic disease and calcification. The mid circumflex coronary artery showed 99% stenosis. This lesion was calcified. The 1st obtuse marginal branch is a small caliber vessel. The 1st obtuse marginal branch showed atherosclerotic disease. The ostial 1st obtuse marginal branch showed 99% stenosis. This lesionwas diffuse. The 2nd obtuse marginal branch is a small caliber vessel. The 2nd obtuse marginal branch demonstrated atherosclerotic disease. The ostial 2nd obtuse marginal branch demonstrated 99% stenosis. This lesion was diffuse. Right Coronary Artery Distribution: The right coronary artery is a normal caliber vessel. The RCA arises normally from the right sinus of Valsalva. The RCA showed no significant disease or stenosis greater than 30%. Patent stent to ostial RCA. The right posterolateral branch is a normal caliber vessel. The right posterolateral branchshowed no significant disease or stenosis greater than 30%. The right posterior descending artery is a small caliber vessel. The right posterior descending artery showed atherosclerotic disease. The proximal to mid right posterior descending artery revealed 70% stenosis. This lesion was diffuse. Coronary Lesion Summary: Vessel Stenosis Vessel Segment Left Main 60% stenosis distal LAD 70% stenosis proximal Circumflex 99% stenosis mid OM 1 99% stenosis ostial OM 2 99% stenosis ostial RPDA 70% stenosis proximal to mid Stress Test: Nuclear Stress Test 05/31/2023 FINDINGS: Small fixed perfusion defect in the basal lateral wall associated decreased wall motion. The left ventricle is normal in size. Gated images demonstrate decreased LV wall motion in the basal lateral wall with an LV EF estimated at 63%. Attenuation correction CT images demonstrate no gross anatomic abnormalities. IMPRESSION: 1. 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 2. The left ventricle is normal in size. 3. Decreased LV wall motion in the basal lateral wall with an LV EF estimated at 63%. History of Present Illness: Ruth Mackey is a 77 y.o. male with a PMH significant for CAD (s/pPCI in 2018), Essential HTN, HLD, T2DM, and Hypothyroidism who presents to [facility] on 09/13/2023 for a staged CABG with cardiac surgeon, Dr. Jose Carlos Malagon. Daily Event 09/13/23: Patient arrived to the ICU in critically ill but stable condition. Intubated & sedated, s/p On-pump CABG x4. - Vital Signs: HR 80, BP 112/88, SpO2 100% - Hemodynamics: CVP 11, CO 5.1, CI2.5 , SVR 1854 - Ventilator Settings: PRVC-AC / FiO2 / PEEP / RR - Pump time: 72 minutes Intake & Output: - Initial R Pleural Chest Tube: 40mL - Initial L Pleural Chest Tube: 30mL - Initial Mediastinal Chest Tube: 50mL 09/14/23: No acute events overnight. Patient extubated in the immediate post-op period. This AM, hewas sitting up in the chair with only the usual post op complaints of pain. No current use of vasopressors/inotropes as they had been weaned off. Throughout the day, the patient was with hemodynamic stability. Plan to discontinue flow track therapy and remove a-line. Chest tubes with moderate output, will plan to remove this evening vs tomorrow AM. Otherwise, starting patient on IV diuresis. - Current O2 Requirements: 2L NC 09/15/23: Continues with no acute events overnight, patient weaning off of supplemental O2. Plan tostart on beta blockade today. CT output slowed, plan to remove. - Current O2 Requirements: 2L NC Assessment & Plan Multivessel Coronary Artery Disease - S/p CABG x 3 on 09/13/[address] Jose Carlos Malagon (TAI-LAD, RA-OM1, SVG-OM2, SVG-PDA) - Continue on ASA 81mg and Atorvastatin 40mg - Starting on metoprolol tartrate 25mg BID Radial Grafting - S/p radial harvest site - Proritize prevention of HTN Mediastinal Incision - TRINI, C/D/I Acute Post-Op Pain - As expected - Multimodal pain control with scheduled magnesium oxide 400mg QD, gabapentin 100mg TID, and acetaminophen 650 q6h (PRN oxycodone & fentanyl) - Bowel regimen while taking narcotics Risk for Post-Op Arrhythmia - Ventricular wires placed - Discontinue V-wires prior to DC - Telemetry until discharged Acute Postoperative Respiratory Insufficiency - As expected following CABG with post-op atelectasis - Current O2 Requirements: 2L NC - Aggressive coughing and deep breathing exercises. - Incentive spirometry - Out of bed, early and aggressive mobilization with assistance - Oxygen as needed, wean to keep saturation above 92% - ICU vp compliance/internship consulted - Albuterol nebulizers as needed Risk for Fluid Volume Overload - Pre-Op Weight: 94.4kg 09/14: 92.5 kg (net negative 358mL) --> IV furosemide 20mg BID 09/15: 91.8 kg (net negative 1473mL) --> IV furosemide 20mg BID - Strict I& Os and daily weights Acute Post-Op Blood-Loss Anemia - Pre-Op H/H: 13.2/38.7 09/14: 10.6/31.9 09/15: 9.5/28.8 - Monitor h/h in the initial post op period - Multivitamin/iron tablet - Daily CBC while in hospital Post-Op Leukocytosis - Pre-Op WBC: 8.5 09/14: 11.7 09/15: 11 - Afebrile, consider elevations as reactive to surgery - Daily cbc while in hospital Essential HTN - Home Medications: Lisinopril 5mg, Isosorbide mononitrate 30mg, metoprolol succinate 100mg every day - Resumed BB as above - Will transition to succinate at discharge Type 2 DM - Home Medications: Glipizide 5mg, metformin XR 500mg BID - HbA1c: 6.4 - Goal for BG <150 in the post-operative period - SSI Dyslipidemia - Home Medications: Atorvastatin 40mg - Continue on statin therapy as above Hypothyroidism - Home Medications: Levothyroxine 175mcg - Resumed Dyslipidemia - Home Medications: Tamsulosin 0.4mg, Finasteride 5mg - Resumed Risk for Electrolyte Disturbances - Optimize electrolytes per [facility] protocol Bowel Regimen - Senna-S BID - PRN suppositories and miralax Prophylaxis - GI: PPI - DVT: Faisal-Hose & enoxaparin - PT/OT eval-once clinically stable Disposition - CVICU (stepdown status) Patient seen and plan discussed with Dr. Jose Carlos Malagon & Dr. Ramon Romero. STEPHEN Ho * Theresa Hill Juliocesar - 09/15/2023 9:20 AM EST This TCC met with patient at bedside, introduced self and explained role. Demographic information and insurance verified. Patient is from home with spouse. 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 Patient states heis a diabetic, but has not been checking his blood sugar at home. Denies SW needs at this time. Patient anticipates returning home at discharge with [facility]. Patient declined list and elects [facility]. Patient's will provide transportation home at discharge. TCC will continue to follow care progression for discharge planning needs. 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 Yes Type of Animals or Pets 1 dog, 3 cats Home or Post Acute Services In home services Type of Home Care Services Home nursing visits Patient expects to be discharged to: home with [facility] Does the patient need discharge transport arranged? No Theresa Gandara RN BSN, ED-TCC * Sal Fung MD - 09/15/2023 8:34 AM EST Subjective: The patient states that he still has some pain at the sites of his chest tubes. He is feeling much better since yesterday he says. Working on improving his breathing via incentive spirometer. Objective: Physical Exam Constitutional: No respiratory acute distress, cooperative Eyes: EOMI, clear sclera ENMT: mucous membranes moist, NC Head/Neck: Neck supple, Trachea midline Respiratory/Thorax: CTAB, no wheezes Cardiovascular: RRR, distal pulses 2+, nonpitting mild peripheral edema Gastrointestinal: non tender, no palpable masses Musculoskeletal: ROM intact, no gross deformity Neurological: No focal deficits, normal sensation Psychological: Appropriate mood and behavior Skin: Warm and dry, 3 chest tubes with serosanguinous discharge Last Recorded Vitals BP 107/56 Pulse 98 Temp 36.7 C (98.1 F) (Temporal) Resp 19 Wt 91.8 kg (202 lb 4.8 oz) SpO2 96% Relevant Results Scheduled medications acetaminophen, 975 mg, oral, q6h aspirin, 81 mg, oral, Daily atorvastatin, 40 mg, oral, Nightly cholecalciferol, 2,000 Units, oral, BID cyanocobalamin, 1,000 mcg, oral, Daily enoxaparin, 40 mg, subcutaneous, Daily finasteride, 5 mg, oral, Daily furosemide, 20 mg, intravenous, q12h gabapentin, 100 mg, oral, TID insulin lispro, 0-15 Units, subcutaneous, q4h ipratropium-albuteroL, 3 mL, nebulization, TID [START ON 09/20/2023] levothyroxine, 175 mcg, oral, Weekly lidocaine, 1 patch, transdermal, q24h magnesium oxide, 400 mg, oral, Daily pantoprazole, 40 mg, oral, Daily before breakfast psyllium, 1 packet, oral, Daily sennosides-docusate sodium, 2 tablet, oral, BID tamsulosin, 0.4 mg, oral, Daily Continuous medications PRN medications PRN medications: albumin human, calcium chloride, calcium chloride, dextrose OR glucagon, electrolyte-A, fentaNYL, ipratropium-albuteroL, magnesium sulfate, magnesium sulfate, metoclopramide OR metoclopramide, naloxone, ondansetron OR ondansetron, oxyCODONE, oxyCODONE, oxygen, potassiumchloride, potassium chloride Results for orders placed or performed during the hospital encounter of 09/13/23 (from the past 24 hour(s)) Electrocardiogram, 12-lead PRN ACS symptoms Result Value Ref Range Systolic blood pressure 102 mmHg Diastolic blood pressure 55 mmHg Ventricular Rate 81 BPM Atrial Rate 81 BPM WV Interval 174 ms QRS Duration 110 ms QT Interval 430 ms QTC Calculation(Bazett) 499 ms P Fate 60 degrees R Fate -34 degrees T Fate 37 degrees QRS Count 13 beats Q Onset 214 ms P Onset 127 ms P Offset 161 ms T Offset 429 ms QTC Fredericia 475 ms Electrocardiogram, 12-lead PRN ACS symptoms Result Value Ref Range Systolic blood pressure 112 mmHg Diastolic blood pressure 54 mmHg Ventricular Rate 71 BPM Atrial Rate 71 BPM WV Interval 156 ms QRS Duration 134 ms QT Interval 404 ms QTC Calculation(Bazett) 439 ms P Fate 37 degrees R Fate 68 degrees T Fate 2 degrees QRS Count 12 beats Q Onset 214 ms P Onset 136 ms P Offset 173 ms T Offset 416 ms QTC Fredericia 427 ms POCT GLUCOSE Result Value Ref Range POCT Glucose 203 (H) 74 - 99 mg/dL POCT GLUCOSE Result Value Ref Range POCT Glucose 205 (H) 74 - 99 mg/dL POCT GLUCOSE Result Value Ref Range POCT Glucose 188 (H) 74 - 99 mg/dL POCT GLUCOSE Result Value Ref Range POCT Glucose 183 (H) 74 - 99 mg/dL Magnesium Result Value Ref Range Magnesium 2.02 1.60 - 2.40 mg/dL CBC Result Value Ref Range WBC 11.9 (H) 4.4 - 11.3 x10*3/uL nRBC 0.0 0.0 - 0.0 /100 WBCs RBC 2.77 (L) 4.50 - 5.90 x10*6/uL Hemoglobin 9.5 (L) 13.5 - 17.5 g/dL Hematocrit 28.8 (L) 41.0 - 52.0 % MCV 104 (H) 80 - 100 fL MCH 34.3 (H) 26.0 - 34.0 pg MCHC 33.0 32.0 - 36.0 g/dL RDW 13.7 11.5 - 14.5 % Platelets 127 (L) 150 - 450 x10*3/uL Renal Function Panel Result Value Ref Range Glucose 140 (H) 74 - 99 mg/dL Sodium 136 136 - 145 mmol/L Potassium 3.8 3.5 - 5.3 mmol/L Chloride 102 98 - 107 mmol/L Bicarbonate 29 21 - 32 mmol/L Anion Gap 9 (L) 10 - 20 mmol/L Urea Nitrogen 31 (H) 6 - 23 mg/dL Creatinine 1.78 (H) 0.50 - 1.30 mg/dL eGFR 39 (L) >60 mL/min/1.73m*2 Calcium 8.9 8.6 - 10.3 mg/dL Phosphorus 3.4 2.5 - 4.9 mg/dL Albumin 3.4 3.4 - 5.0 g/dL POCT GLUCOSE Result Value Ref Range POCT Glucose 151 (H) 74 - 99 mg/dL POCT GLUCOSE Result Value Ref Range POCT Glucose 185 (H) 74 - 99 mg/dL @IMAGES@ Assessment/Plan Daily Progress: 09/15: CXR largely unchanged. AMPAC 07/30. Kidney function improving slightly. Off pressors. 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) prior ARNEL to RCA #Postop vasoplegia-resolved -Monitor hemodynamics closely to maintain MAP >65 -Continue aspirin and statin -Hold Imdur, lisinopril and Toprol Respiratory System: # Postop respiratory insufficiency-improving #ETHAN -Oxygen as needed, currently on nasal cannula -CPAP nightly recommended, patient refusing Gastrointestinal System: -PPI prophylaxis and bowel regimen Endocrine System: # Type 2 diabetes #Hypothyroidism -Accu-checks, SSI every 4 -Continue home levothyroxine Renal/ System: # CKD stage III #BPH -Trend BMP, monitor UOP, optimize electrolytes -Continue to monitor urine output and kidney function. Creatinine baseline 1.6. At 1.78 today. Improving since 09-14. -Continue home tamsulosin and finasteride Hematological System: # Postop anemia and thrombocytopenia -monitor CBC and platelet count Infection Disease System: # Leukocytosis -improving -Monitor for signs of infection, likely reactive, was given ancef in the surgical period Vent/O2: 2L NC Lines/Devices: 3 chest tubes, art line Drips/Fluids: off pressor support DVT PPX: Lovenox Code: Full Sal Fung M.D. PGY-2 Associated attestation - Bill Hood MD - 09/15/2023 3:22 PM EST Overall patient continues to improve continue to monitor patient patient s/p cardiac surgery. Hemodynamics have improved. * Nely Agee, OT - 2023 2:18 PM EST Occupational Therapy Evaluation Patient Name: Ruth Mackey Today's Date: 2023 Time Calculation Start Time: 922 Stop Time: 940 Time Calculation (min): 18 min Assessment: End of Session Communication: Bedside nurse, Product Engineer End of Session Patient Position: Up in chair Plan: Treatment Interventions: ADL retraining, Functional transfer training, UE strengthening/ROM, Endurance training, Compensatory technique education OT Frequency: 3 times per week OT Discharge Recommendations: Low intensity level of continued care OT - OK to Discharge: Yes (to next level of care when cleared by medical team) Treatment Interventions: ADL retraining, Functional transfer training, UE strengthening/ROM, Endurance training, Compensatory technique education Subjective Current Problem: 1. 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 [place] heart with stable angina pectoris (CMS/HCC) Anesthesia Intraoperative Transesophageal Echocardiogram Anesthesia Intraoperative Transesophageal Echocardiogram 2. MCFADDEN (dyspnea on exertion) Anesthesia Intraoperative Transesophageal Echocardiogram Anesthesia Intraoperative Transesophageal Echocardiogram General: General Reason for Referral: CABG X 3 Referred By: Lawson Garcia CNP Past Medical History Relevant to Rehab: CAD,HTN,DM,PCI,Back surg; Prior to Session Communication: Bedside nurse Patient Position Received: Up in chair, Alarm off, not on at start of session Precautions: Medical Precautions: Fall precautions, Cardiac precautions Post-Surgical Precautions: Move in the Tube Precautions Comment: arterial line, external pacer, ortega, chest tubes x 3, o2 3 L/min, MITT Vital Signs: Heart Rate: (VSS) Pain: Pain Assessment Pain Assessment: (no pain complaints) Objective Cognition: Overall Cognitive Status: Within Functional Limits Home Living: Type of Home: House Lives With: Spouse Home Adaptive Equipment: Walker rolling or standard, Cane Home Layout: One level Home Access: Ramped entrance Prior Function: Level of [place]: Independent with ADLs and functional transfers Ambulatory Assistance: Independent Prior Function Comments: tub/shower with gb, installed higher toilet, drives, spouse is in a wheelchair, laundry on basement level IADL History: ADL: ADL Comments: would estimate max assist for LB, mod assist x 1 for UB due to lines/tubes Activity Tolerance: Bed Mobility/Transfers: Bed Mobility Bed Mobility: Yes (in chair) Transfers Transfer: Yes (CGA sit<> stand from recliner) Ambulation/Gait Training: Ambulation/Gait Training Ambulation/Gait Training Performed: (pt. able to march in place, cga, wh. walker support) Strength: Strength Comments: distal wfl bue's Outcome Measures:[facility] Daily Activity Putting on and taking off regular lower body clothing: A lot Bathing (including washing, rinsing, drying): A lot Putting on and taking off regular upper body clothing: A lot Toileting, which includes using toilet, bedpan or urinal: A lot Taking care of personal grooming such as brushing teeth: A little Eating Meals: None Daily Activity - Total Score: 15 Education Documentation Precautions, taught by Nely Agee OT at 2023 2:16 PM. Learner: Patient Readiness: Acceptance Method: Explanation Response: Verbalizes Understanding, Needs Reinforcement ADL Training, taught by Nely Agee OT at 2023 2:16 PM. Learner: Patient Readiness: Acceptance Method: Explanation Response: Verbalizes Understanding, Needs Reinforcement Education Comments No comments found. OP EDUCATION: Goals: Encounter Problems Encounter Problems (Active) OT Goals Increase functional mobility and functional transfers to supervision for bed/chair/toilet with dme prn (Progressing) Start: 09/14/23 Expected End: 09/21/23 increase bue ther ex/activity x 7-10 minutes and increase standing tolerance with supervision x 3-5minutes to promote greater activity tolerance for assist with adl. (Progressing) Start: 09/14/23 Expected End: 09/21/23 Increase ub/lb dressing/bathing to supervision with dme prn (Progressing) Start: 09/14/23 Expected End: 09/21/23 Increase toileting to supervision with dme prn (Progressing) Start: 09/14/23 Expected End: 09/21/23 pt. to apply ec/ws techniques without cues to all mobility/transfer/adl to decrease fatigue/promoteefficient use of energy toward completion of functional tasks. (Progressing) Start: 09/14/23 Expected End: 09/21/23 * Lupillo Mckeon, PT - 2023 2:04 PM EST Physical Therapy Physical Therapy Evaluation Patient Name: Ruth Mackey Today's Date: 2023 Time Calculation Start Time: 923 Stop Time: 944 Time Calculation (min): 21 min Assessment/Plan PT Assessment End of Session Communication: Bedside nurse, Product Engineer IP OR SWING BED PT PLAN Inpatient or Swing Bed: Inpatient PT Plan PT Plan: Skilled PT PT Frequency: 5 times per week PT Discharge Recommendations: Low intensity level of continued care PT - OK to Discharge: Yes Subjective General Visit Information: General Reason for Referral: CABG X 3 Referred By: Lawson Garcia CNP Past Medical History Relevant to Rehab: CAD,HTN,DM,PCI,Back surg; Prior to Session Communication: Bedside nurse Patient Position Received: Up in chair, Alarm off, not on at start of session Home Living: Home Living Type of Home: House Lives With: Spouse Home Adaptive Equipment: Walker rolling or standard, Cane Home Layout: One level Home Access: Ramped entrance Prior Level of Function: Prior Function Per Pt/Caregiver Report Level of [place]: Independent with ADLs and functional transfers Ambulatory Assistance: Independent Precautions: Precautions Medical Precautions: Fall precautions, Cardiac precautions Post-Surgical Precautions: Move in the Tube Vital Signs: Objective Pain: Pain Assessment Pain Score: 0 - No pain Cognition: Cognition Overall Cognitive Status: Within Functional Limits General Assessments: Functional Assessments: Bed Mobility Bed Mobility: Yes (in chair) Transfers Transfer: Yes (CGA) Ambulation/Gait Training Ambulation/Gait Training Performed: Yes (one step forward/back(limited by lines and tubes)/wh walker) Extremity/Trunk Assessments: Outcome Measures: [facility] Basic Mobility Turning from your back to your side while in a flat bed without using bedrails: A lot Moving from lying on your back to sitting on the side of a flat bed without using bedrails: A lot Moving to and from bed to chair (including a wheelchair): A little Standing up from a chair using your arms (e.g. wheelchair or bedside chair): A little To walk in hospital room: Total Climbing 3-5 steps with railing: Total Basic Mobility - Total Score: 12 Encounter Problems Encounter Problems (Active) PT Problem bed mob Start: 09/14/23 Expected End: 09/21/23 Ind bed mob faye Start: 09/14/23 Expected End: 09/21/23 Ind faye gait/stairs Start: 09/14/23 Expected End: 09/21/23 Amb ind approp device or w/o a device 100 ft> Ind/sba stairs Education Documentation Mobility Training, taught by Lupillo Mckeon PT at 2023 2:03 PM. Learner: Patient Readiness: Acceptance Method: Explanation Response: Verbalizes Understanding Education Comments No comments found. * Mary Garcia APRN-PETER - 2023 7:39 AM EST Cardiac Surgery Progress Note Ruth Mackey is a 78 y.o. male on day 1 of admission presenting with 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 [place] heart with stable angina pectoris (CMS/HCC). Subjective Interval HPI: Seen and assessed patient this AM while they were sitting up in bedside chair; in no acute distress. Review of Systems Constitutional: Negative for decreased appetite and malaise/fatigue. HENT: Negative for congestion. Eyes: Negative for blurred vision and double vision. Cardiovascular: Positive for leg swelling. Negative for chest pain, dyspnea on exertion, irregular heartbeat, orthopnea and palpitations. Respiratory: Negative for cough and shortness of breath. Endocrine: Negative for cold intolerance and heat intolerance. Skin: Negative for nail changes, poor wound healing and rash. Musculoskeletal: Negative for arthritis, muscle cramps, muscle weakness, myalgias and stiffness. Gastrointestinal: Negative for bloating, nausea and vomiting. Genitourinary: Negative for frequency, hesitancy and urgency. Neurological: Positive for weakness. Negative for dizziness, focal weakness and light-headedness. Psychiatric/Behavioral: Negative for altered mental status. Allergic/Immunologic: Negative for environmental allergies. Objective Physical Exam Physical Exam Vitals and nursing note reviewed. Constitutional: General: He is awake. He is not in acute distress. Appearance: Normal appearance. He is ill-appearing. He is not diaphoretic. Interventions: Nasal cannula in place. HENT: Head: Normocephalic and atraumatic. Nose: Nose normal. Mouth/Throat: Mouth: Mucous membranes are dry. Pharynx: No oropharyngeal exudate. Eyes: Extraocular Movements: Extraocular movements intact. Pupils: Pupils are equal, round, and reactive to light. Neck: Comments: R internal jugular triple lumen catheter Cardiovascular: Rate and Rhythm: Normal rate and regular rhythm. Pulses: Normal pulses. Heart sounds: Normal heart sounds, S1 normal and S2 normal. No murmur heard. No friction rub. No gallop. Pulmonary: Effort: Pulmonary effort is normal. No tachypnea, bradypnea or accessory muscle usage. Breath sounds: Examination of the right-lower field reveals decreased breath sounds. Examination ofthe left-lower field reveals decreased breath sounds. Decreased breath sounds present. Chest: Chest wall: Tenderness present. Musculoskeletal: Cervical back: Normal range of motion and neck supple. No edema. Skin: General: Skin is cool. Capillary Refill: Capillary refill takes less than 2 seconds. Comments: Mediastinal incision with post-op dressing Neurological: Mental Status: He is alert. GCS: GCS eye subscore is 1. GCS verbal subscore is 1. GCS motor subscore is 1. Cranial Nerves: Cranial nerves 2-12 are intact. Psychiatric: Behavior: Behavior is cooperative. Last Recorded Vitals Vitals: 09/14/23 1700 09/14/23 1800 09/14/23 1855 09/14/23 1900 BP: 114/60 111/55 123/63 BP Location: Patient Position: Pulse: 82 89 89 Resp: 19 (!) 33 18 Temp: TempSrc: SpO2: 95% 92% 95% 96% Weight: Height: Intake/Output last 3 Shifts: I/O last 3 completed shifts: In: 3281.2 (35.5 mL/kg) [I.V.:131.2 (1.4 mL/kg); Blood:600; IV Piggyback:2550] Out: 3640 (39.4 mL/kg) [Urine:2050 (0.6 mL/kg/hr); Blood:800; Chest Tube:790] Weight: 92.5 kg Scheduled medications acetaminophen, 975 mg, oral, q6h aspirin, 81 mg, oral, Daily atorvastatin, 40 mg, oral, Nightly ceFAZolin, 2 g, intravenous, q8h cholecalciferol, 2,000 Units, oral, BID cyanocobalamin, 1,000 mcg, oral, Daily enoxaparin, 40 mg, subcutaneous, Daily finasteride, 5 mg, oral, Daily furosemide, 20 mg, intravenous, q12h gabapentin, 100 mg, oral, TID insulin lispro, 0-15 Units, subcutaneous, q4h [START ON 09/15/2023] ipratropium-albuteroL, 3 mL, nebulization, TID [START ON 09/20/2023] levothyroxine, 175 mcg, oral, Weekly lidocaine, 1 patch, transdermal, q24h magnesium oxide, 400 mg, oral, Daily pantoprazole, 40 mg, oral, Daily before breakfast Or pantoprazole, 40 mg, intravenous, Daily before breakfast psyllium, 1 packet, oral, Daily sennosides-docusate sodium, 2 tablet, oral, BID tamsulosin, 0.4 mg, oral, Daily Continuous medications dexmedeTOMIDine, 0-1.5 mcg/kg/hr, Last Rate: Stopped (09/13/23 1700) EPINEPHrine (Adrenalin) 10 mg in dextrose 5 % in water (D5W) 250 mL (0.04 mg/mL) infusion, 0-2 mcg/kg/min norepinephrine, 0-3.3 mcg/kg/min, Last Rate: Stopped (09/14/23 0700) PRN medications PRN medications: albumin human, calcium chloride, calcium chloride, dextrose OR glucagon, electrolyte-A, fentaNYL, ipratropium-albuteroL, magnesium sulfate, magnesium sulfate, metoclopramide OR metoclopramide, naloxone, ondansetron OR ondansetron, oxyCODONE, oxyCODONE, oxygen, potassiumchloride, potassium chloride Relevant Results Labs Results for orders placed or performed during the hospital encounter of 09/13/23 (from the past 24 hour(s)) POCT GLUCOSE Result Value Ref Range POCT Glucose 197 (H) 74 - 99 mg/dL POCT GLUCOSE Result Value Ref Range POCT Glucose 158 (H) 74 - 99 mg/dL Calcium, Ionized Result Value Ref Range POCT Calcium, Ionized 1.22 1.1 - 1.33 mmol/L Magnesium Result Value Ref Range Magnesium 1.93 1.60 - 2.40 mg/dL CBC Result Value Ref Range WBC 11.7 (H) 4.4 - 11.3 x10*3/uL nRBC 0.0 0.0 - 0.0 /100 WBCs RBC 3.12 (L) 4.50 - 5.90 x10*6/uL Hemoglobin 10.6 (L) 13.5 - 17.5 g/dL Hematocrit 31.9 (L) 41.0 - 52.0 % MCV 102 (H) 80 - 100 fL MCH 34.0 26.0 - 34.0 pg MCHC 33.2 32.0 - 36.0 g/dL RDW 13.5 11.5 - 14.5 % Platelets 153 150 - 450 x10*3/uL Renal Function Panel Result Value Ref Range Glucose 166 (H) 74 - 99 mg/dL Sodium 140 136 - 145 mmol/L Potassium 4.4 3.5 - 5.3 mmol/L Chloride 109 (H) 98 - 107 mmol/L Bicarbonate 23 21 - 32 mmol/L Anion Gap 12 10 - 20 mmol/L Urea Nitrogen 25 (H) 6 - 23 mg/dL Creatinine 1.84 (H) 0.50 - 1.30 mg/dL eGFR 38 (L) >60 mL/min/1.73m*2 Calcium 8.6 8.6 - 10.3 mg/dL Phosphorus 4.5 2.5 - 4.9 mg/dL Albumin 3.6 3.4 - 5.0 g/dL POCT GLUCOSE Result Value Ref Range POCT Glucose 156 (H) 74 - 99 mg/dL BLOOD GAS ARTERIAL FULL PANEL Result Value Ref Range POCT pH, Arterial 7.38 7.38 - 7.42 pH POCT pCO2, Arterial 42 38 - 42 mm Hg POCT pO2, Arterial 86 85 - 95 mm Hg POCT SO2, Arterial 98 94 - 100 % POCT Oxy Hemoglobin, Arterial 95.2 94.0 - 98.0 % POCT Hematocrit Calculated, Arterial 30.0 (L) 41.0 - 52.0 % POCT Sodium, Arterial 138 136 - 145 mmol/L POCT Potassium, Arterial 4.1 3.5 - 5.3 mmol/L POCT Chloride, Arterial 109 (H) 98 - 107 mmol/L POCT Ionized Calcium, Arterial 1.19 1.10 - 1.33 mmol/L POCT Glucose, Arterial 164 (H) 74 - 99 mg/dL POCT Lactate, Arterial 1.3 0.4 - 2.0 mmol/L POCT Base Excess, Arterial -0.4 -2.0 - 3.0 mmol/L POCT HCO3 Calculated, Arterial 24.8 22.0 - 26.0 mmol/L POCT Hemoglobin, Arterial 10.0 (L) 13.5 - 17.5 g/dL POCT Anion Gap, Arterial 8 (L) 10 - 25 mmo/L Patient Temperature FiO2 36 % Flow 4.0 LPM Site of Arterial Puncture Arterial Line Green Top Result Value Ref Range Extra Tube Hold for add-ons. POCT GLUCOSE Result Value Ref Range POCT Glucose 175 (H) 74 - 99 mg/dL Electrocardiogram, 12-lead PRN ACS symptoms Result Value Ref Range Systolic blood pressure 102 mmHg Diastolic blood pressure 55 mmHg Ventricular Rate 81 BPM Atrial Rate 81 BPM WV Interval 174 ms QRS Duration 110 ms QT Interval 430 ms QTC Calculation(Bazett) 499 ms P Fate 60 degrees R Fate -34 degrees T Fate 37 degrees QRS Count 13 beats Q Onset 214 ms P Onset 127 ms P Offset 161 ms T Offset 429 ms QTC Fredericia 475 ms Electrocardiogram, 12-lead PRN ACS symptoms Result Value Ref Range Systolic blood pressure 112 mmHg Diastolic blood pressure 54 mmHg Ventricular Rate 71 BPM Atrial Rate 71 BPM WV Interval 156 ms QRS Duration 134 ms QT Interval 404 ms QTC Calculation(Bazett) 439 ms P Fate 37 degrees R Fate 68 degrees T Fate 2 degrees QRS Count 12 beats Q Onset 214 ms P Onset 136 ms P Offset 173 ms T Offset 416 ms QTC Fredericia 427 ms POCT GLUCOSE Result Value Ref Range POCT Glucose 203 (H) 74 - 99 mg/dL POCT GLUCOSE Result Value Ref Range POCT Glucose 205 (H) 74 - 99 mg/dL Cardiology Tests Echo: Transthoracic Echo (TTE) Complete 06/21/2023 PHYSICIAN INTERPRETATION: Left Ventricle: Left ventricular systolic function is normal, with an estimated ejection fraction of 60%. There are no regional wall motion abnormalities. The left ventricular cavity size is normal. Abnormal (paradoxical) septal motion, consistent with left bundle branch block. Spectral Doppler shows an impaired relaxation pattern of left ventricular diastolic filling. Left Atrium: The left atrium is normal in size. A bubble study using agitated saline was performed.Bubble study is negative. Right Ventricle: The right ventricle is normal in size. There is normal right ventricular global systolic function. Right Atrium: The right atrium is normal in size. Aortic Valve: The aortic valve is trileaflet. There is no evidence of aortic valve regurgitation. The peak instantaneous gradient of the aortic valve is 12.7 mmHg. The mean gradient of the aortic valve is 7.0 mmHg. Mitral Valve: The mitral valve is normal in structure. There is no evidence of mitral valve regurgitation. Tricuspid Valve: The tricuspid valve is structurally normal. There is trace tricuspid regurgitation. Pulmonic Valve: The pulmonic valve is not well visualized. There is no indication of pulmonic valveregurgitation. Pericardium: There is no pericardial effusion noted. Aorta: The aortic root is normal. CONCLUSIONS: 1. Left ventricular systolic function is normal with a 60% estimated ejection fraction. 2. Abnormal septal motion consistent with left bundle branch block. 3. Spectral Doppler shows an impaired relaxation pattern of left ventricular diastolic filling. Ejection Fractions: EF Date/Time Value Ref Range Status 06/21/2023 12:55 PM 66 Cath: Cardiac catheterization - coronary 07/29/2023 Coronary Angiography: The coronary circulation is right dominant. Left Main Coronary Artery: The left main coronary artery is a normal caliber vessel. The left main arises normally from the left coronary sinus of Valsalva and bifurcates into the LAD and circumflex coronary arteries. The leftmain coronary artery showed atherosclerotic disease and calcification. The distal left main coronary artery showed 60% stenosis. This lesion was calcified. Left Anterior Descending Coronary Artery Distribution: The left anterior descending coronary artery is a normal caliber vessel. The LAD arises normally from the left main coronary artery. The LAD demonstrated a normal vessel, atherosclerotic disease and calcification. The proximal left anterior descending coronary artery showed 70% stenosis. This lesion was diffuse. The 1st diagonal branch is a normal caliber vessel. The 1st diagonal branch showed nosignificant disease or stenosis greater than 30%. Circumflex Coronary Artery Distribution: The circumflex coronary artery is a normal caliber vessel. The circumflex arises normally from the left main coronary artery and terminates in the AV groove. The circumflex revealed atherosclerotic disease and calcification. The mid circumflex coronary artery showed 99% stenosis. This lesion was calcified. The 1st obtuse marginal branch is a small caliber vessel. The 1st obtuse marginal branch showed atherosclerotic disease. The ostial 1st obtuse marginal branch showed 99% stenosis. This lesionwas diffuse. The 2nd obtuse marginal branch is a small caliber vessel. The 2nd obtuse marginal branch demonstrated atherosclerotic disease. The ostial 2nd obtuse marginal branch demonstrated 99% stenosis. This lesion was diffuse. Right Coronary Artery Distribution: The right coronary artery is a normal caliber vessel. The RCA arises normally from the right sinus of Valsalva. The RCA showed no significant disease or stenosis greater than 30%. Patent stent to ostial RCA. The right posterolateral branch is a normal caliber vessel. The right posterolateral branchshowed no significant disease or stenosis greater than 30%. The right posterior descending artery is a small caliber vessel. The right posterior descending artery showed atherosclerotic disease. The proximal to mid right posterior descending artery revealed 70% stenosis. This lesion was diffuse. Coronary Lesion Summary: Vessel Stenosis Vessel Segment Left Main 60% stenosis distal LAD 70% stenosis proximal Circumflex 99% stenosis mid OM 1 99% stenosis ostial OM 2 99% stenosis ostial RPDA 70% stenosis proximal to mid Stress Test: Nuclear Stress Test 05/31/2023 FINDINGS: Small fixed perfusion defect in the basal lateral wall associated decreased wall motion. The left ventricle is normal in size. Gated images demonstrate decreased LV wall motion in the basal lateral wall with an LV EF estimated at 63%. Attenuation correction CT images demonstrate no gross anatomic abnormalities. IMPRESSION: 1. 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 2. The left ventricle is normal in size. 3. Decreased LV wall motion in the basal lateral wall with an LV EF estimated at 63%. History of Present Illness: Ruth Mackey is a 77 y.o. male with a PMH significant for CAD (s/pPCI in 2018), Essential HTN, HLD, T2DM, and Hypothyroidism who presents to [facility] on 09/13/2023 for a staged CABG with cardiac surgeon, Dr. Jose Carlos Malagon. Daily Event 09/13/23: Patient arrived to the ICU in critically ill but stable condition. Intubated & sedated, s/p On-pump CABG x4. - Vital Signs: HR 80, BP 112/88, SpO2 100% - Hemodynamics: CVP 11, CO 5.1, CI2.5 , SVR 1854 - Ventilator Settings: PRVC-AC / FiO2 / PEEP / RR - Pump time: 72 minutes Intake & Output: - Initial R Pleural Chest Tube: 40mL - Initial L Pleural Chest Tube: 30mL - Initial Mediastinal Chest Tube: 50mL 09/14/23: No acute events overnight. Patient extubated in the immediate post-op period. This AM, hewas sitting up in the chair with only the usual post op complaints of pain. No current use of vasopressors/inotropes as they had been weaned off. Throughout the day, the patient was with hemodynamic stability. Plan to discontinue flow track therapy and remove a-line. Chest tubes with moderate output, will plan to remove this evening vs tomorrow AM. Otherwise, starting patient on IV diuresis. - Current O2 Requirements: 2L NC Assessment & Plan Multivessel Coronary Artery Disease - S/p CABG x 3 on 09/13/[address] Jose Carlos Malagon (TAI-LAD, RA-OM1, SVG-OM2, SVG-PDA) - Continue on ASA 81mg and Atorvastatin 40mg - Holding beta-mila in initial post op period - Maintain MS/pl chest tubes to -20cm H20 continuous suction - Daily CXR while chest tube intact Radial Grafting - S/p radial harvest site - Proritize prevention of HTN Mediastinal Incision - Remove post-op dressing on POD #2 - Dressing C/D/I Acute Post-Op Pain - As expected - Multimodal pain control with scheduled magnesium oxide 400mg QD, gabapentin 100mg TID, and acetaminophen 650 q6h (PRN oxycodone & fentanyl) - Bowel regimen while taking narcotics Risk for Post-Op Arrhythmia - Ventricular wires placed - Discontinue V-wires prior to DC - Telemetry until discharged Acute Postoperative Respiratory Insufficiency - As expected following CABG with post-op atelectasis - Current O2 Requirements: 2L NC - Aggressive coughing and deep breathing exercises. - Incentive spirometry - Out of bed, early and aggressive mobilization with assistance - Oxygen as needed, wean to keep saturation above 92% - ICU vp compliance/internship consulted - Albuterol nebulizers as needed Risk for Fluid Volume Overload - Pre-Op Weight: 94.4kg 09/14: 92.5 kg (net negative 358mL) --> IV furosemide 20mg BID - Strict I& Os and daily weights - Monitor CVP and hemodynamics closely Acute Post-Op Blood-Loss Anemia - Pre-Op H/H: 13.2/38.7 09/14:10.6/31.9 - Monitor h/h in the initial post op period - Monitor chest tubes for post op hemorrhage - Multivitamin/iron tablet - Daily CBC while in hospital Post-Op Leukocytosis - Pre-Op WBC: 8.5 09/14: 11.7 - Reactive to surgery - Post-op ATB Q12 for 48hrs - Daily cbc while in hospital Essential HTN - Home Medications: Lisinopril 5mg, Isosorbide mononitrate 30mg, metoprolol succinate 100mg every day - Hold in the immediate post-op period Type 2 DM - Home Medications: Glipizide 5mg, metformin XR 500mg BID - HbA1c: 6.4 - Goal for BG <150 in the post-operative period - SSI Dyslipidemia - Home Medications: Atorvastatin 40mg - Continue on statin therapy as above Hypothyroidism - Home Medications: Levothyroxine 175mcg - Resumed Dyslipidemia - Home Medications: Tamsulosin 0.4mg, Finasteride 5mg - Resumed Risk for Electrolyte Disturbances - Optimize electrolytes per [facility] protocol Bowel Regimen - Senna-S BID - PRN suppositories and miralax Prophylaxis - GI: PPI - DVT: Faisal-Hose & starting enoxaparin on POD #1 - PT/OT eval-once clinically stable Disposition - CVICU (stepdown status) Patient seen and plan discussed with Dr. Jose Carlos Malagon & Dr. Ramon Romero. STEPHEN Ho documented in this [facility] Work Phone: [phone]) 171-220302-03-2024 Hospital course Narrative* STEPHEN Ho - 09/18/2023 2:11 PM EST Discharge Diagnosis 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 [place] heart with stable angina pectoris (CMS/HCC) Test Results Pending At Discharge Pending Labs No current pending labs. Hospital Course History of Present Illness: Ruth Mackey is a 77 y.o. male with a PMH significant for CAD (s/pPCI in 2018), Essential HTN, HLD, T2DM, and Hypothyroidism who presents to [facility] on 09/13/[facility]23 for a staged CABG with cardiac surgeon, Dr. Jose Carlos Malagon. Daily Event 09/13/23: Patient arrived to the ICU in critically ill but stable condition. Intubated & sedated, s/p On-pump CABG x4. - Vital Signs: HR 80, BP 112/88, SpO2 100% - Hemodynamics: CVP 11, CO 5.1, CI2.5 , SVR 1854 - Ventilator Settings: PRVC-AC / FiO2 / PEEP / RR - Pump time: 72 minutes Intake & Output: - Initial R Pleural Chest Tube: 40mL - Initial L Pleural Chest Tube: 30mL - Initial Mediastinal Chest Tube: 50mL 09/14/23: No acute events overnight. Patient extubated in the immediate post-op period. This AM, hewas sitting up in the chair with only the usual post op complaints of pain. No current use of vasopressors/inotropes as they had been weaned off. Throughout the day, the patient was with hemodynamic stability. Plan to discontinue flow track therapy and remove a-line. Chest tubes with moderate output, will plan to remove this evening vs tomorrow AM. Otherwise, starting patient on IV diuresis. - Current O2 Requirements: 2L NC 09/15/23: Continues with no acute events overnight, patient weaning off of supplemental O2. Plan tostart on beta blockade today. CT output slowed, plan to remove. - Current O2 Requirements: 2L NC 09/16/23: Patient slightly tachycardic this AM; plan to increase PO beta blockade and continue to monitor. Otherwise, the patient is recovering well in the immediate post-op period. Continue on IV diuresis for now with promotion of ambulation and pulm hygiene. - Current O2 Requirements: 2L NC 09/17/23: Continues with no acute events overnight. Patient continues on supplemental O2 today, however weaning down. Plan to continue diuresis today with plan for discharge to home tomorrow. - Current O2 Requirements: 1L NC 09/18/23: No acute events overnight. Patient weaned to RA. Plan for discharged to home today with continued PO diuresis. Assessment & Plan Multivessel Coronary Artery Disease - S/p CABG x 3 on 09/13/[address] 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 Acute Post-Op Pain - Scheduled acetaminophen - PRN oxycodone 5mg q6h for 5 days (OARRS verified) Acute Postoperative Respiratory Insufficiency - As expected following CABG with post-op atelectasis - Current O2 Requirements: 1L NC - Aggressive coughing and deep breathing exercises & Incentive spirometry Risk for Fluid Volume Overload - Pre-Op Weight: 94.4kg 09/14: 92.5 kg (net negative 358mL) --> IV furosemide 20mg BID 09/15: 91.8 kg (net negative 1473mL) --> IV furosemide 20mg BID 09/16: 90.7 kg (net negative 3141mL) --> IV furosemide 20mg BID 09/17: 89.4 kg (net negative 4641mL) --> IV furosemide 20mg BID + Metolazone 2.5mg once 09/18: Pending (net negative 7381mL) - Home with PO furosemide 20mg BID - Daily weights at home Acute Post-Op Blood-Loss Anemia - Pre-Op H/H: 13.2/38.7 09/14: 10.6/31.9 09/15: 9.5/28.8 09/16: 8.9/27.1 09/17: 8.9/26.7 09/18: 9.3/28.2 Post-Op Leukocytosis - Pre-Op WBC: 8.5 09/14: 11.7 09/15: 11 09/16: 10.6 09/17: 7.0 09/18: 8.0 Essential HTN - Home Medications: Lisinopril 5mg, Isosorbide mononitrate 30mg, metoprolol succinate 100mg every day - Resumed home beta blockade Type 2 DM - Home Medications: Glipizide 5mg, metformin XR 500mg BID - HbA1c: 6.4 - Goal for BG <150 in the post-operative period - Resume home medications Dyslipidemia - Home Medications: Atorvastatin 40mg - Continue on statin therapy as above Hypothyroidism - Home Medications: Levothyroxine 175mcg - Resumed Dyslipidemia - Home Medications: Tamsulosin 0.4mg, Finasteride 5mg - Resumed Disposition - Home with home healthcare Patient seen and plan discussed with Dr. Jose Carlos Malagon Pertinent Physical Exam At Time of Discharge Physical Exam Vitals and nursing note reviewed. Constitutional: General: He is not in acute distress. Appearance: Normal appearance. He is not ill-appearing. HENT: Head: Normocephalic and atraumatic. Nose: Nose normal. Mouth/Throat: Mouth: Mucous membranes are moist. Pharynx: Oropharynx is clear. Eyes: Extraocular Movements: Extraocular movements intact. Conjunctiva/sclera: Conjunctivae normal. Pupils: Pupils are equal, round, and reactive to light. Cardiovascular: Rate and Rhythm: Normal rate and regular rhythm. Pulses: Normal pulses. Heart sounds: Normal heart sounds, S1 normal and S2 normal. No murmur heard. No systolic murmur is present. No friction rub. No gallop. Pulmonary: Effort: Pulmonary effort is normal. Breath sounds: Normal breath sounds. Abdominal: General: Abdomen is flat. Bowel sounds are normal. There is no distension. Palpations: Abdomen is soft. Musculoskeletal: General: Normal range of motion. Cervical back: Normal range of motion and neck supple. Right lower leg: No edema. Left lower leg: No edema. Skin: General: Skin is warm and dry. Capillary Refill: Capillary refill takes less than 2 seconds. Findings: No lesion. Nails: There is no clubbing. Comments: Mediastinal incision C/D/I, well approximated, sternal stability Neurological: General: No focal deficit present. Mental Status: He is alert and oriented to person, place, and time. Mental status is at baseline. Cranial Nerves: Cranial nerves 2-12 are intact. Sensory: Sensation is intact. Motor: Motor function is intact. Psychiatric: Attention and Perception: Attention and perception normal. Mood and Affect: Mood normal. Speech: Speech normal. Behavior: Behavior normal. Thought Content: Thought content normal. Cognition and Memory: Cognition and memory normal. Judgment: Judgment normal. Home Medications Medication List START taking these medications acetaminophen 325 mg tablet; Commonly known as: Tylenol; Take 3 tablets (975 mg) by mouth every 6 hours. furosemide 20 mg tablet; Commonly known as: Lasix; Take 1 tablet (20 mg) by mouth 2 times a day. oxyCODONE 5 mg immediate release tablet; Commonly known as: Roxicodone; Take 1 tablet (5 mg) by mouth every 6 hours if needed for severe pain (7 - 10). CHANGE how you take these medications metoprolol succinate XL 100 mg 24 hr tablet; Commonly known as: Toprol-XL; Take 1 tablet (100 mg) by mouth once daily at bedtime.; What changed: when to take this CONTINUE taking these medications aspirin 81 mg EC tablet atorvastatin 40 mg tablet; Commonly known as: Lipitor cholecalciferol 50 MCG (2000 UT) tablet; Commonly known as: Vitamin D-3 clopidogrel 75 mg tablet; Commonly known as: Plavix cyanocobalamin 1,000 mcg tablet; Commonly known as: Vitamin B-12 finasteride 5 mg tablet; Commonly known as: Proscar glipiZIDE 5 mg tablet; Commonly known as: Glucotrol isosorbide mononitrate ER 30 mg 24 hr tablet; Commonly known as: Imdur magnesium oxide 420 mg tablet; Commonly known as: Mag-Ox metFORMIN XR 500 mg 24 hr tablet; Commonly known as: Glucophage-XR Synthroid 175 mcg tablet; Generic drug: levothyroxine tamsulosin 0.4 mg 24 hr capsule; Commonly known as: Flomax STOP taking these medications ciprofloxacin 500 mg tablet; Commonly known as: Cipro lisinopril 5 mg tablet nitroglycerin 0.4 mg SL tablet; Commonly known as: Nitrostat Outpatient Follow-Up Future Appointments Date Time Provider Department Center 11/05/2023 1:40 PM Zahra Sanchez MD [id number] [facility] 02/01/2024 3:00 PM Broderick Garcia MD [id number] [facility] STEPHEN Ho documented in this [facility] Work Phone: 1(130) 435-456902-03-2024 Hospital Discharge instructions* Discharge Instructions* STEPHEN Ho - 09/18/2023 1:54 PM EST Images from the original note were not included. Coronary Artery Bypass Grafting Discharge Instructions About this topic Normally, you have many blood vessels that bring blood to the heart muscle. If one of them is blocked, your doctor will try to restore normal blood flow. Then you may have less chest pain, your heartmay work better, and you may be able to be more active. This surgery uses another blood vessel to let the blood flow around the one with the blockage. You may have surgery on more than one blocked blood vessel. After surgery, you may have more blood flow to your heart muscle. This may lower your risk of heart attack or chest pain. What care is needed at home? Ask your doctor what you need to do when you go home. Make sure you ask questions if you do not understand what the doctor says. This way you will know what you need to do. Your doctor may want you to take part in a heart rehab program. This will help your healing and improve your heart function. Patients attend the program after their surgery a few days a week. The program teaches exercise and how to lower risk factors for heart disease and stress. It also can help you deal with the low mood that sometimes happens after surgery. Be sure to follow your doctor's advice about: Wound care for your chest and other sites. Your doctor will tell you when or how often you will need to change your dressing. Be sure you know the signs to watch for and when to call your doctor. Showering. Do not to take a bath or swim until your doctor tells you it is OK. You may take a shower, but make sure that cut site is covered with plastic wrap so it will not get wet. Supporting your chest when you cough, sneeze, or laugh. Use a pillow or hug yourself to ease pain. Doing your coughing and breathing exercises. Walking and other exercises to help your healing. Quitting smoking. Talk with your doctor for help to stop smoking. Lowering stress. Find ways to cope with your stress or talk to your doctor about it. Taking drugs for high blood pressure, heart rhythm, blood thinning, and lowering cholesterol. Having blood tests and exams as ordered after the surgery. What follow-up care is needed? Your doctor may ask you to make visits to the office to check on your progress. Be sure to keep these visits. If you have stitches or aubrie, you will need to have them taken out. Your doctor will often want to do this in 1 to 2 weeks. If the doctor used skin glue, the glue will fall off on its own. Your doctor may do some tests to check your overall progress. Your doctor may also change your drugs if needed. Together you can make a plan for more care. Your doctor may order a heart rehab program for you after you leave the hospital. This is an important part of your care. Share your discharge information with the rehab staff so they can plan a program to help you recover. Let your doctor know if you need help finding a program. What drugs may be needed? The doctor may order drugs to: Lower cholesterol Help with pain Control blood pressure Slow your heart rate or keep it regular Prevent blood clots Prevent infection Help you stop smoking Will physical activity be limited? You will have to limit your activity for 3 to 6 weeks. Your doctor will give you some precautions you need to follow. Talk to your doctor about the right amount of activity for you. Avoid driving for a few weeks until your doctor tells you it is allowed and you are no longer taking prescription pain drugs. Ask your doctor when to return to your normal activities like work and sex. Exercise often. Talk with your doctor about what exercise is safe for you. Be sure to ask your doctor before you start any new activities. What changes to diet are needed? Eat a heart healthy diet with foods low in fat, sugar, and salt. Eat high-fiber foods such as wholegrains, fruits, and vegetables. Ask your doctor to plan a visit with a diesel engine tester if you need help with your diet. What problems could happen? Internal bleeding or bleeding at the cut site Infection Stroke or heart attack Irregular heart rhythms Pneumonia or breathing problems Blood clots Kidney failure Pancreatitis Failure of the graft When do I need to call the doctor? Activate the emergency medical system right away if you have signs of a heart attack or stroke. Call 911 in the [place] or [place]. The sooner treatment begins, the better your chances for recovery. Call for emergency help right away if you have: Signs of heart attack: Chest pain Trouble breathing Fast heartbeat Feeling dizzy Signs of stroke: Sudden numbness or weakness of the face, arm, or leg, especially on one side of the body Sudden confusion, trouble speaking or understanding Sudden trouble seeing in one or both eyes Sudden trouble walking, dizziness, loss of balance or coordination Sudden severe headache with no known cause Call your doctor if you have: Signs of infection. These include a fever of 100.4 F (38 C) or higher; chills; redness, swelling, very bad sore throat, cough, more sputum or change in color of sputum, pain with passing urine, burning, urgency, and blood in the urine. Signs of wound infection. These include swelling, redness, warmth around the wound; too much pain when touched; yellowish, greenish, or bloody discharge; foul smell coming from the cut site; cut siteopens up. Any signs including pain, upset stomach, throwing up that does not go away even with drugs you are taking Rapid heart rate Arms or legs are numb or swollen Teach Back: Helping You Understand The Teach Back Method helps you understand the information we are giving you. After you talk with the staff, tell them in your own words what you learned. This helps to make sure the staff has described each thing clearly. It also helps to explain things that may have been confusing. Before going home, make sure you can do these: I can tell you about my procedure. I can tell you how to care for my cut site. I can tell you when I can go back to my normal activities. I can tell you what I will do if I have signs of an infection. Last Reviewed Date 2019-09-15 Consumer Information Use and Disclaimer This generalized information is a limited summary of diagnosis, treatment, and/or medication information. It is not meant to be comprehensive and should be used as a tool to help the user understand and/or assess potential diagnostic and treatment options. It does NOT include all information about conditions, treatments, medications, side effects, or risks that may apply to a specific patient. Itis not intended to be medical advice or a substitute for the medical advice, diagnosis, or treatment of a health care provider based on the health care provider's examination and assessment of a patient s specific and unique circumstances. Patients must speak with a health care provider for complete information about their health, medical questions, and treatment options, including any risks or benefits regarding use of medications. This information does not endorse any treatments or medications as safe, effective, or approved for treating a specific patient. [employer] and its affiliatesdisclaim any warranty or liability relating to this information or the use thereof. The use of thisinformation is governed by the Terms of Use, available at https://www.[employer].ters[facility] ([facility])uwClout.com/en/know/kkqffpry-mocoxaafvbjtt-yvxqz Copyright 2022 [employer]. and its affiliates and/or licensors. All rights reserved. .reji documented in this [facility] Work Phone: 1(276) 196-853302-03-2024 Miscellaneous Notes* Care Plan - Nitin Castellanos RN - 09/18/2023 4:08 AM EST Problem: Pain Goal: My pain/discomfort is manageable Outcome: Progressing Problem: Safety Goal: Patient will be injury free during hospitalization Outcome: Progressing Goal: I will remain free of falls Outcome: Progressing Problem: Daily Care Goal: Daily care needs are met Outcome: Progressing Problem: Psychosocial Needs Goal: Demonstrates ability to cope with hospitalization/illness Outcome: Progressing Goal: Collaborate with me, my family, and caregiver to identify my specific goals Outcome: Progressing Problem: Discharge Barriers Goal: My discharge needs are met Outcome: Progressing Problem: Skin Goal: Decreased wound size/increased tissue granulation at next dressing change Outcome: Progressing Goal: Participates in plan/prevention/treatment measures Outcome: Progressing Goal: Prevent/manage excess moisture Outcome: Progressing Goal: Prevent/minimize sheer/friction injuries Outcome: Progressing Goal: Promote/optimize nutrition Outcome: Progressing Goal: Promote skin healing Outcome: Progressing Problem: Pain Goal: Takes deep breaths with improved pain control throughout the shift Outcome: Progressing Goal: Turns in bed with improved pain control throughout the shift Outcome: Progressing Goal: Walks with improved pain control throughout the shift Outcome: Progressing Goal: Performs ADL's with improved pain control throughout shift Outcome: Progressing Goal: Participates in PT with improved pain control throughout the shift Outcome: Progressing Goal: Free from opioid side effects throughout the shift Outcome: Progressing Goal: Free from acute confusion related to pain meds throughout the shift Outcome: Progressing Problem: Resident is recovering from cardiovascular surgery Goal: I will maintain and build strength. Outcome: Progressing Goal: I will decrease complications and risks after surgery Outcome: Progressing Problem: Diabetes Goal: Achieve decreasing blood glucose levels by end of shift Outcome: Progressing Goal: Increase stability of blood glucose readings by end of shift Outcome: Progressing Goal: Decrease in ketones present in urine by end of shift Outcome: Progressing Goal: Maintain electrolyte levels within acceptable range throughout shift Outcome: Progressing Goal: Maintain glucose levels >70mg/dl to <250mg/dl throughout shift Outcome: Progressing Goal: No changes in neurological exam by end of shift Outcome: Progressing Goal: Learn about and adhere to nutrition recommendations by end of shift Outcome: Progressing Goal: Vital signs within normal range for age by end of shift Outcome: Progressing Goal: Increase self care and/or family involovement by end of shift Outcome: Progressing Goal: Receive DSME education by end of shift Outcome: Progressing * Care Plan - Inna Pepe RN - 09/17/2023 4:48 PM EST Problem: Pain Goal: My pain/discomfort is manageable Outcome: Progressing Problem: Safety Goal: Patient will be injury free during hospitalization Outcome: Progressing Goal: I will remain free of falls Outcome: Progressing Problem: Daily Care Goal: Daily care needs are met Outcome: Progressing Problem: Psychosocial Needs Goal: Demonstrates ability to cope with hospitalization/illness Outcome: Progressing Goal: Collaborate with me, my family, and caregiver to identify my specific goals Outcome: Progressing Problem: Discharge Barriers Goal: My discharge needs are met Outcome: Progressing Problem: Skin Goal: Decreased wound size/increased tissue granulation at next dressing change Outcome: Progressing Goal: Participates in plan/prevention/treatment measures Outcome: Progressing Goal: Prevent/manage excess moisture Outcome: Progressing Goal: Prevent/minimize sheer/friction injuries Outcome: Progressing Goal: Promote/optimize nutrition Outcome: Progressing Goal: Promote skin healing Outcome: Progressing Problem: Pain Goal: Takes deep breaths with improved pain control throughout the shift Outcome: Progressing Goal: Turns in bed with improved pain control throughout the shift Outcome: Progressing Goal: Walks with improved pain control throughout the shift Outcome: Progressing Goal: Performs ADL's with improved pain control throughout shift Outcome: Progressing Goal: Participates in PT with improved pain control throughout the shift Outcome: Progressing Goal: Free from opioid side effects throughout the shift Outcome: Progressing Goal: Free from acute confusion related to pain meds throughout the shift Outcome: Progressing Problem: Resident is recovering from cardiovascular surgery Goal: I will maintain and build strength. Outcome: Progressing Goal: I will decrease complications and risks after surgery Outcome: Progressing Problem: Diabetes Goal: Achieve decreasing blood glucose levels by end of shift Outcome: Progressing Goal: Increase stability of blood glucose readings by end of shift Outcome: Progressing Goal: Decrease in ketones present in urine by end of shift Outcome: Progressing Goal: Maintain electrolyte levels within acceptable range throughout shift Outcome: Progressing Goal: Maintain glucose levels >70mg/dl to <250mg/dl throughout shift Outcome: Progressing Goal: No changes in neurological exam by end of shift Outcome: Progressing Goal: Learn about and adhere to nutrition recommendations by end of shift Outcome: Progressing Goal: Vital signs within normal range for age by end of shift Outcome: Progressing Goal: Increase self care and/or family involovement by end of shift Outcome: Progressing Goal: Receive DSME education by end of shift Outcome: Progressing The patient's goals for the shift include The clinical goals for the shift include patient will walk and remain hemodynamically stable this shift Over the shift, the patient did make progress toward the following goals. Barriers to progression include monitoring labs, encouraging I/S to improve resp status and wean o2. Recommendations to address these barriers include monitoring meds, pox wean o2 as able. . * Care Plan - Lily Bui RN - 09/17/2023 6:32 AM EST Problem: Pain Goal: My pain/discomfort is manageable Outcome: Progressing Problem: Safety Goal: Patient will be injury free during hospitalization Outcome: Progressing Goal: I will remain free of falls Outcome: Progressing Problem: Daily Care Goal: Daily care needs are met Outcome: Progressing Problem: Psychosocial Needs Goal: Demonstrates ability to cope with hospitalization/illness Outcome: Progressing Goal: Collaborate with me, my family, and caregiver to identify my specific goals Outcome: Progressing Problem: Discharge Barriers Goal: My discharge needs are met Outcome: Progressing Problem: Skin Goal: Decreased wound size/increased tissue granulation at next dressing change Outcome: Progressing Goal: Participates in plan/prevention/treatment measures Outcome: Progressing Goal: Prevent/manage excess moisture Outcome: Progressing Goal: Prevent/minimize sheer/friction injuries Outcome: Progressing Goal: Promote/optimize nutrition Outcome: Progressing Goal: Promote skin healing Outcome: Progressing Problem: Pain Goal: Takes deep breaths with improved pain control throughout the shift Outcome: Progressing Goal: Turns in bed with improved pain control throughout the shift Outcome: Progressing Goal: Walks with improved pain control throughout the shift Outcome: Progressing Goal: Performs ADL's with improved pain control throughout shift Outcome: Progressing Goal: Participates in PT with improved pain control throughout the shift Outcome: Progressing Goal: Free from opioid side effects throughout the shift Outcome: Progressing Goal: Free from acute confusion related to pain meds throughout the shift Outcome: Progressing Problem: Resident is recovering from cardiovascular surgery Goal: I will maintain and build strength. Outcome: Progressing Goal: I will decrease complications and risks after surgery Outcome: Progressing Problem: Diabetes Goal: Achieve decreasing blood glucose levels by end of shift Outcome: Progressing Goal: Increase stability of blood glucose readings by end of shift Outcome: Progressing Goal: Decrease in ketones present in urine by end of shift Outcome: Progressing Goal: Maintain electrolyte levels within acceptable range throughout shift Outcome: Progressing Goal: Maintain glucose levels >70mg/dl to <250mg/dl throughout shift Outcome: Progressing Goal: No changes in neurological exam by end of shift Outcome: Progressing Goal: Learn about and adhere to nutrition recommendations by end of shift Outcome: Progressing Goal: Vital signs within normal range for age by end of shift Outcome: Progressing Goal: Increase self care and/or family involovement by end of shift Outcome: Progressing Goal: Receive DSME education by end of shift Outcome: Progressing * Care Plan - Jessie Sousa RN - 09/16/2023 11:22 AM EST The clinical goals for the shift include patient will walk and remain hemodynamically stable this shift Problem: Pain Goal: My pain/discomfort is manageable Outcome: Progressing Problem: Safety Goal: Patient will be injury free during hospitalization Outcome: Progressing Goal: I will remain free of falls Outcome: Progressing Problem: Daily Care Goal: Daily care needs are met Outcome: Progressing Problem: Psychosocial Needs Goal: Demonstrates ability to cope with hospitalization/illness Outcome: Progressing Goal: Collaborate with me, my family, and caregiver to identify my specific goals Outcome: Progressing Problem: Discharge Barriers Goal: My discharge needs are met Outcome: Progressing Problem: Skin Goal: Decreased wound size/increased tissue granulation at next dressing change Outcome: Progressing Goal: Participates in plan/prevention/treatment measures Outcome: Progressing Goal: Prevent/manage excess moisture Outcome: Progressing Goal: Prevent/minimize sheer/friction injuries Outcome: Progressing Goal: Promote/optimize nutrition Outcome: Progressing Goal: Promote skin healing Outcome: Progressing Problem: Pain Goal: Takes deep breaths with improved pain control throughout the shift Outcome: Progressing Goal: Turns in bed with improved pain control throughout the shift Outcome: Progressing Goal: Walks with improved pain control throughout the shift Outcome: Progressing Goal: Performs ADL's with improved pain control throughout shift Outcome: Progressing Goal: Participates in PT with improved pain control throughout the shift Outcome: Progressing Goal: Free from opioid side effects throughout the shift Outcome: Progressing Goal: Free from acute confusion related to pain meds throughout the shift Outcome: Progressing Problem: Resident is recovering from cardiovascular surgery Goal: I will maintain and build strength. Outcome: Progressing Goal: I will decrease complications and risks after surgery Outcome: Progressing Problem: Diabetes Goal: Achieve decreasing blood glucose levels by end of shift Outcome: Progressing Goal: Increase stability of blood glucose readings by end of shift Outcome: Progressing Goal: Decrease in ketones present in urine by end of shift Outcome: Progressing Goal: Maintain electrolyte levels within acceptable range throughout shift Outcome: Progressing Goal: Maintain glucose levels >70mg/dl to <250mg/dl throughout shift Outcome: Progressing Goal: No changes in neurological exam by end of shift Outcome: Progressing Goal: Learn about and adhere to nutrition recommendations by end of shift Outcome: Progressing Goal: Vital signs within normal range for age by end of shift Outcome: Progressing Goal: Increase self care and/or family involovement by end of shift Outcome: Progressing Goal: Receive DSME education by end of shift Outcome: Progressing * Care Plan - Lily Bui RN - 09/15/2023 7:22 AM EST Problem: Pain Goal: My pain/discomfort is manageable Outcome: Progressing Problem: Safety Goal: Patient will be injury free during hospitalization Outcome: Progressing Goal: I will remain free of falls Outcome: Progressing Problem: Daily Care Goal: Daily care needs are met Outcome: Progressing Problem: Psychosocial Needs Goal: Demonstrates ability to cope with hospitalization/illness Outcome: Progressing Goal: Collaborate with me, my family, and caregiver to identify my specific goals Outcome: Progressing Problem: Skin Goal: Decreased wound size/increased tissue granulation at next dressing change Outcome: Progressing Goal: Participates in plan/prevention/treatment measures Outcome: Progressing Goal: Prevent/manage excess moisture Outcome: Progressing Goal: Prevent/minimize sheer/friction injuries Outcome: Progressing Goal: Promote/optimize nutrition Outcome: Progressing Goal: Promote skin healing Outcome: Progressing Problem: Pain Goal: Takes deep breaths with improved pain control throughout the shift Outcome: Progressing Goal: Turns in bed with improved pain control throughout the shift Outcome: Progressing Goal: Walks with improved pain control throughout the shift Outcome: Progressing Goal: Performs ADL's with improved pain control throughout shift Outcome: Progressing Goal: Participates in PT with improved pain control throughout the shift Outcome: Progressing Goal: Free from opioid side effects throughout the shift Outcome: Progressing Goal: Free from acute confusion related to pain meds throughout the shift Outcome: Progressing Problem: Resident is recovering from cardiovascular surgery Goal: I will maintain and build strength. Outcome: Progressing Goal: I will decrease complications and risks after surgery Outcome: Progressing Problem: Diabetes Goal: Achieve decreasing blood glucose levels by end of shift Outcome: Progressing Goal: Increase stability of blood glucose readings by end of shift Outcome: Progressing Goal: Decrease in ketones present in urine by end of shift Outcome: Progressing Goal: Maintain electrolyte levels within acceptable range throughout shift Outcome: Progressing Goal: Maintain glucose levels >70mg/dl to <250mg/dl throughout shift Outcome: Progressing Goal: No changes in neurological exam by end of shift Outcome: Progressing Goal: Learn about and adhere to nutrition recommendations by end of shift Outcome: Progressing Goal: Vital signs within normal range for age by end of shift Outcome: Progressing Goal: Increase self care and/or family involovement by end of shift Outcome: Progressing Goal: Receive DSME education by end of shift Outcome: Progressing * Care Plan - Mary Avila RN - 2023 2:25 PM EST The patient's goals for the shift include Problem: Pain Goal: My pain/discomfort is manageable Outcome: Progressing Problem: Safety Goal: Patient will be injury free during hospitalization Outcome: Progressing Note: Hourly rounding, nonskid footwear, bed alarm, call light within reach Goal: I will remain free of falls Outcome: Progressing Note: Hourly rounding, nonskid footwear, bed alarm, call light within reach Problem: Daily Care Goal: Daily care needs are met Outcome: Progressing Problem: Psychosocial Needs Goal: Demonstrates ability to cope with hospitalization/illness Outcome: Progressing Goal: Collaborate with me, my family, and caregiver to identify my specific goals Outcome: Progressing Problem: Discharge Barriers Goal: My discharge needs are met Outcome: Progressing Problem: Skin Goal: Decreased wound size/increased tissue granulation at next dressing change Outcome: Progressing Flowsheets (Taken 2023 [id number]) Decreased wound size/increased tissue granulation at next dressing change: Promote sleep for wound healing Goal: Participates in plan/prevention/treatment measures Outcome: Progressing Goal: Prevent/manage excess moisture Outcome: Progressing Goal: Prevent/minimize sheer/friction injuries Outcome: Progressing Goal: Promote/optimize nutrition Outcome: Progressing Goal: Promote skin healing Outcome: Progressing Problem: Pain Goal: Takes deep breaths with improved pain control throughout the shift Outcome: Progressing Goal: Turns in bed with improved pain control throughout the shift Outcome: Progressing Goal: Walks with improved pain control throughout the shift Outcome: Progressing Goal: Performs ADL's with improved pain control throughout shift Outcome: Progressing Goal: Participates in PT with improved pain control throughout the shift Outcome: Progressing Goal: Free from opioid side effects throughout the shift Outcome: Progressing Goal: Free from acute confusion related to pain meds throughout the shift Outcome: Progressing Problem: Resident is recovering from cardiovascular surgery Goal: I will maintain and build strength. Outcome: Progressing Goal: I will decrease complications and risks after surgery Outcome: Progressing Problem: Diabetes Goal: Achieve decreasing blood glucose levels by end of shift Outcome: Progressing Goal: Increase stability of blood glucose readings by end of shift Outcome: Progressing Goal: Decrease in ketones present in urine by end of shift Outcome: Progressing Goal: Maintain electrolyte levels within acceptable range throughout shift Outcome: Progressing Goal: Maintain glucose levels >70mg/dl to <250mg/dl throughout shift Outcome: Progressing Goal: No changes in neurological exam by end of shift Outcome: Progressing Goal: Learn about and adhere to nutrition recommendations by end of shift Outcome: Progressing Goal: Vital signs within normal range for age by end of shift Outcome: Progressing Goal: Increase self care and/or family involovement by end of shift Outcome: Progressing Goal: Receive DSME education by end of shift Outcome: Progressing The clinical goals for the shift include pain control * Care Plan - Lily Bui RN - 2023 7:18 AM EST Problem: Pain Goal: My pain/discomfort is manageable Outcome: Progressing Problem: Safety Goal: Patient will be injury free during hospitalization Outcome: Progressing Goal: I will remain free of falls Outcome: Progressing Problem: Daily Care Goal: Daily care needs are met Outcome: Progressing Problem: Psychosocial Needs Goal: Demonstrates ability to cope with hospitalization/illness Outcome: Progressing Goal: Collaborate with me, my family, and caregiver to identify my specific goals Outcome: Progressing Problem: Discharge Barriers Goal: My discharge needs are met Outcome: Progressing Problem: Skin Goal: Decreased wound size/increased tissue granulation at next dressing change Outcome: Progressing Goal: Participates in plan/prevention/treatment measures Outcome: Progressing Goal: Prevent/manage excess moisture Outcome: Progressing Goal: Prevent/minimize sheer/friction injuries Outcome: Progressing Goal: Promote/optimize nutrition Outcome: Progressing Goal: Promote skin healing Outcome: Progressing Problem: Pain Goal: Takes deep breaths with improved pain control throughout the shift Outcome: Progressing Goal: Turns in bed with improved pain control throughout the shift Outcome: Progressing Goal: Walks with improved pain control throughout the shift Outcome: Progressing Goal: Performs ADL's with improved pain control throughout shift Outcome: Progressing Goal: Participates in PT with improved pain control throughout the shift Outcome: Progressing Goal: Free from opioid side effects throughout the shift Outcome: Progressing Goal: Free from acute confusion related to pain meds throughout the shift Outcome: Progressing Problem: Resident is recovering from cardiovascular surgery Goal: I will maintain and build strength. Outcome: Progressing Goal: I will decrease complications and risks after surgery Outcome: Progressing Problem: Diabetes Goal: Achieve decreasing blood glucose levels by end of shift Outcome: Progressing Goal: Increase stability of blood glucose readings by end of shift Outcome: Progressing Goal: Decrease in ketones present in urine by end of shift Outcome: Progressing Goal: Maintain electrolyte levels within acceptable range throughout shift Outcome: Progressing Goal: Maintain glucose levels >70mg/dl to <250mg/dl throughout shift Outcome: Progressing Goal: No changes in neurological exam by end of shift Outcome: Progressing Goal: Learn about and adhere to nutrition recommendations by end of shift Outcome: Progressing Goal: Vital signs within normal range for age by end of shift Outcome: Progressing Goal: Increase self care and/or family involovement by end of shift Outcome: Progressing Goal: Receive DSME education by end of shift Outcome: Progressing * Significant Event - Aby Alamo RRT - 09/13/2023 4:59 PM EST Patient extubated without complication per verbal order from surgeon. Intensive Care physician notified. Patient placed on 3L NC and tolerating well. Patient voice is intact and no stridor present. 09/13/23 1650 Medical Gas Therapy/Pulse Ox Medical Gas Therapy Supplemental oxygen O2 Delivery Method Nasal cannula SpO2 99 % Patient Activity During SpO2 Measurement At rest Pulse Oximetry Type Continuous Oximetry Probe Site Changed Yes FiO2 (%) 32 % Incentive Spirometry Treatment Respiratory Depth/Rhythm Regular Respiratory Effort Unlabored * Op Note - Jose Carlos Malagon MD - 09/13/2023 8:27 AM EST CORONARY ARTERY BYPASS GRAFT x3/ LEFT INTERNAL MAMMARY ARTERY/ VEIN/ RADIAL Operative Note Date: 09/13/2023 OR Location: [facility] Name: Ruth Mackey, : 1945, Age: 77 y.o., , Sex: male Diagnosis Pre-op Diagnosis * 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 [place] heart with stable angina pectoris (CMS/HCC) [I25.118] Post-op Diagnosis * 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 [place] heart with stable angina pectoris (CMS/HCC) [I25.118] Procedures 1. Midline sternotomy 2. On-pump coronary artery bypass grafting x 4 TAI to LAD Radial artery to OM1 SVG sequentially to OM 2 and PDA 3. Left atrial appendage clip with AtriClip number 45 mm 4. Endoscopic harvesting of the left radial artery 5. Endoscopic harvesting of the greater saphenous vein Surgeons * Jose Carlos Malagon - Primary Resident/Fellow/Other Metallic Yarn Slitting Machine Operator: Surgeon(s) and Role: Procedure Summary Anesthesia: General ASA: III Anesthesia Staff: Anesthesiologist: Darius Galeas MD STAFF ENGINEER: Charley Colmenares APRN-CONCHITA Care Administrative Tech: Feng Bernabe Estimated Blood Loss: 500 mL Intra-op Medications: Administrations occurring from 0730 to 1230 on 09/13/23: Medication Name Total Dose vancomycin (Vancocin) vial for injection 4 g papaverine injection 16.2 mg sodium chloride 0.9 % irrigation solution 2,000 mL norepinephrine (Levophed) 8 mg in sodium chloride 0.9% 250 mL (0.032 mg/mL) infusion (premix) 0.46 mg albumin human 5 % infusion 12.5 g 25 g Anesthesia Record Intraprocedure I/O Totals Intake Dexmedetomidine 0.00 mL The total shown is the total volume documented since Anesthesia Start was filed. LR bolus 1000.00 mL NaCl 0.9 % bolus 1000.00 mL Norepinephrine Drip 0.00 mL The total shown is the total volume documented since Anesthesia Start was filed. Nitroglycerin Drip 0.00 mL The total shown is the total volume documented since Anesthesia Start was filed. Cell Saver 600 mL Total Intake 2600 mL Output Urine 400 mL Est. Blood Loss 800 mL Total Output 1200 mL Net Net Volume 1400 mL Specimen: No specimens collected Staff: Dyehouse Worker: Jenni Andrade RN; Maria L Griffith, MARIA C Scrub Person: Vanessa Reyes; Lilo Reyes; Elva Gallegos Drains and/or Catheters: Chest Tube 1 Left Pleural 28 Fr (Active) Chest Tube 2 Mediastinal 28 Fr (Active) Chest Tube 3 Right Pleural 28 Fr (Active) Urethral Catheter Temperature probe 14 Fr. (Active) Tourniquet Times: Total Tourniquet Time Documented: Arm - Upper (laterality) - 29 minutes Total: Arm - Upper (laterality) - 29 minutes Implants: Implants Type Name Action Serial No. Other Cardiac Implant SMALL WIDE SLOT, HORIZON LIGATING CLIPS, TITANIUM (24 CLIPS/POUCH, 25 POUCHES/BX) Implanted Other Cardiac Implant SMALL WIDE SLOT, HORIZON LIGATING CLIPS, TITANIUM (24 CLIPS/POUCH, 25 POUCHES/BX) Implanted SMALL WIDE SLOT, HORIZON LIGATING CLIPS, TITANIUM (24 CLIPS/POUCH, 25 POUCHES/BX) Implanted Other Cardiac Implant ATRICLIP, FLEX-V DEVICE, 45MM STERILE, [id number] - [id number] Implanted Findings: Calcific atherosclerotic coronary artery disease Normal size heart Echo findings showed preserved biventricular function with no important valvular abnormalities. Indications: Ruth Mackey is an 77 y.o. 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 I had the pleasure of seeing Mr. Campos in clinic as an outpatient. (Please see my note). Today he presents electively for his surgical revascularization. The patient was seen in the preoperative area. The risks, benefits, complications, treatment options, non-operative alternatives, expected recovery and outcomes were discussed again with the patient. The possibilities of reaction to medication, pulmonary aspiration, injury to surrounding structures, bleeding, recurrent infection, the need for additional procedures, failure to diagnose a condition, and creating a complication requiring transfusion or operation were discussed with the patient. The patient concurred with the proposed plan, giving informed consent. Preoperative antibiotics have been ordered and given within 1 hours of incision. Venous thrombosis prophylaxis are not indicated. Procedure Details: The patient was brought to the OR 10. A safety checklist was performed. The patient was put to sleep under general anesthetic. A central venous and an arterial line were inserted by the anesthesia team. Intraoperative echocardiogram was performed and showed biventricular functionwith no important valvular abnormality. The patient was prepped and draped in the usual fashion Incision: Midline sternotomy Conduit harvestin. Pedicle left internal mammary artery 2. Endoscopic harvesting of the left radial artery 3. Endoscopic harvesting of the greater saphenous vein Anticoagulation: 400 units/kg. Target ACT above 480 seconds Cardiopulmonary bypass: #20 EOPA cannula in the distal ascending aorta and a double stage venous cannula appropriate to the patient's size through the right atrium Cardioplegia strategy: Antegrade and retrograde cardioplegia catheters. Induction with 1.5 L, 1 L antegradely and 500 mL retrogradely. Maintenance dose every 15 minutes in a range of 300 to 500 mL retrogradely. Hotshot at the end. Clamping strategy: Single clamp technique. Grafts/Anastomoses: 1. TAI to LAD. The left anterior descending was an important vessel. It had some calcification throughout its length. I was able to find a segment free of calcium distal to the mid segment. It received the TAI in the standard fashion. Flow analysis show adequate flow with adequate pulsatility index 2. Radial artery to OM1. The circumflex artery had a pseudo occlusion and gave off 2 OM's. The first OM was the biggest of them. I decided to bypass it with the radial artery. It was done in the end-to-side fashion with a 7 probe. Flow analysis showed adequate flow 3. Saphenous vein graft sequentially to OM 2 and PDA. At first, I was not convinced the second obtuse marginal was bypassable given its size. However, I had good surprise and I decided to bypass the OM 2 as well. I used a piece of saphenous vein graft to bypass the OM 2 in the PDA in a sequential co nfiguration. The OM 2 graft was anastomosed in the end-to-side fashion and brought towards the right side of the heart. It crossed the PDA where it was anastomosed in an dora-shaped technique. Thesaphenous vein graft was then brought over the acute margin of the heart and anastomosed in the ascending aorta in the standard fashion. Flow analysis depicted adequate flow and pulsatility index Cardiopulmonary bypass and cross-clamp time: The weaning of cardiopulmonary bypass took place uneventfully. The heart did not require any support. However, it was paced for a period of time until the intrinsic normal sinus rhythm took over. Thecardiopulmonary bypass and the cross-clamp time was 72 and 65 minutes, retrospectively. Drains and pacing wires: 3 #28 Toño tubes were left in place, 1 in each pleural space and 1 in the mediastinum 1 set of ventricular pacing wire was left Hemostasis and closure: Hemostasis was quite good after reversal of heparin with protamine. No blood products were required. The chest was closed in the standard fashion with stainless steel wires. Complications: None; patient tolerated the procedure well. Disposition: ICU - intubated and hemodynamically stable. Condition: stable Attending Attestation: I performed the procedure. Jose Carlos Malagon * Brief Op Note - Luis Villanueva SA - 09/13/2023 8:27 AM EST Date: 09/13/2023 OR Location: [facility] Name: Ruth Mackey, : 1945, Age: 77 y.o., , Sex: male Diagnosis Pre-op Diagnosis * 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 [place] heart with stable angina pectoris (CMS/HCC) [I25.118] Post-op Diagnosis * 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 [place] heart with stable angina pectoris (CMS/HCC) [I25.118] Procedures CORONARY ARTERY BYPASS GRAFT x3/ LEFT INTERNAL MAMMARY ARTERY/ VEIN/ RADIAL [address] - [place] CORONARY ARTERY BYP W/VEIN & ARTERY GRAFT 2 VEIN Surgeons * Jose Carlos Malagon - Primary Resident/Fellow/Other Metallic Yarn Slitting Machine Operator: Surgeon(s) and Role: Adalberto Altamirano CSA Median Sternotomy Central cannulation Endoscopic harvesting of right SVG Endoscopic harvesting of left RA CABGx4 (TAI-LAD, RA-OM1, SVG sequential to PDA and OM1) Chest Tubes/Drains: Blakes x3 (mediastinal, bilateral pleural) Temporary Pacing Wires: V only -Settings: DDD -Underlying Rhythm: 80 Permanent pacer/ICD: No -Preoperative settings: n/a -Intra-op/ Postoperative settings: n/a Sternotomy performed by: Manas WOODSON Conduit Harvested by: SVG-Rich ALLEN RA- Pesek JOSE A Sternal Wires placed by: Evelia NARANJO Arm/Leg/Groin Closure by: Rich ALLEN Cardio Pulmonary Bypass Time: 72min Cross-clamp Time: 65 min Circulatory Arrest: No Time: n/a Is patient candidate for Emergency Re-sternotomy? Yes -If yes, POD #10 is - 2.8.24 Procedure Summary Anesthesia: General ASA: III Anesthesia Staff: Anesthesiologist: Darius Galeas MD STAFF ENGINEER: Charley Colmenares APRN-STAFF ENGINEER Care Administrative Tech: Feng Bernabe Estimated Blood Loss: 250mL Intra-op Medications: Administrations occurring from 0730 to 1230 on 09/13/23: Medication Name Total Dose vancomycin (Vancocin) vial for injection 4 g papaverine injection 16.2 mg sodium chloride 0.9 % irrigation solution 2,000 mL norepinephrine (Levophed) 8 mg in sodium chloride 0.9% 250 mL (0.032 mg/mL) infusion (premix) 0.46 mg albumin human 5 % infusion 12.5 g 25 g Anesthesia Record Intraprocedure I/O Totals Intake Dexmedetomidine 0.00 mL The total shown is the total volume documented since Anesthesia Start was filed. LR bolus 1000.00 mL NaCl 0.9 % bolus 1000.00 mL Norepinephrine Drip 0.00 mL The total shown is the total volume documented since Anesthesia Start was filed. Nitroglycerin Drip 0.00 mL The total shown is the total volume documented since Anesthesia Start was filed. Cell Saver 600 mL Total Intake 2600 mL Output Urine 400 mL Est. Blood Loss 800 mL Total Output 1200 mL Net Net Volume 1400 mL Specimen: No specimens collected Staff: [employer] Worker: Jenni Andrade RN; Maria L Griffith RN Scrub Person: Vanessa Reyes; Lilo Reyes; Elva Gallegos Findings: CAD Complications: None; patient tolerated the procedure well. Disposition: ICU - intubated and hemodynamically stable. Condition: stable Specimens Collected: No specimens collected Attending Attestation: I was present and scrubbed for the freeman portions of the procedure. Jose Carlos Malagon documented in this [facility] Work Phone: [phone] Consult note* Salma Pat Juárez, RD - 09/16/2023 12:33 PM ESTAssociated Order(s): IP CONSULT TO NUTRITION SERVICES Nutrition Initial Assessment: Nutrition Assessment Reason for Assessment: (CICU protocol, CABG) Patient is a 78 y.o. male presenting with: CAD; s/p CABG x3 09/13/23 PmHx: DM, HTN, HLD Nutrition History: Energy Intake: Fair 50-75 % Food and Nutrient History: Pt was working with therapy at time of attempted visit today. S/P CABG x3 on 09/13/23 Vitamin/Herbal Supplement Use: Vitamin D Food Allergies/Intolerances: None GI Symptoms: None Oral Problems: NATALIA Anthropometrics: Height: 170.2 cm (5' 7.01) Weight: 90.7 kg (199 lb 15.3 oz) BMI (Calculated): 31.31 IBW/kg (Dietitian Calculated): 67.2 kg Percent of IBW: 135 % Weight History: Weight Change %: Weight History / % Weight Change: 09/15/23 91.8kg, 09/14/23 92.5kg, 09/13/23 91.4kg, 08/04/23 91.9kg, 06/07/23 91.6kg Significant Weight Loss: No Nutrition Focused Physical Exam Findings: defer: not available Subcutaneous Fat Loss: Orbital Fat Pads: Defer Muscle Wasting: Edema: Edema Location: non pitting generalized and RLE Physical Findings: Skin: Positive (surgical wounds from CABG) Nutrition Significant Labs: CBC Trend: Results from last 7 days Lab Units 09/16/23 0444 09/15/23 0437 09/14/23 0429 09/13/23 1249 WBC AUTO x10*3/uL 10.6 11.9* 11.7* 13.8* RBC AUTO x10*6/uL 2.58* 2.77* 3.12* 3.17* HEMOGLOBIN g/dL 8.9* 9.5* 10.6* 10.9* HEMATOCRIT % 27.1* 28.8* 31.9* 32.2* MCV fL 105* 104* 102* 102* PLATELETS AUTO x10*3/uL 142* 127* 153 123* , BMP Trend: Results from last 7 days Lab Units 09/16/23 0444 09/15/23 0437 09/14/23 0429 09/13/23 1249 GLUCOSE mg/dL 183* 140* 166* 147* CALCIUM mg/dL 8.8 8.9 8.6 8.8 SODIUM mmol/L 136 136 140 139 POTASSIUM mmol/L 4.2 3.8 4.4 3.9 CO2 mmol/L 30 29 23 23 CHLORIDE mmol/L 99 102 109* 108* BUN mg/dL 39* 31* 25* 24* CREATININE mg/dL 1.70* 1.78* 1.84* 1.66* , A1C: Lab Results Component Value Date HGBA1C 6.4 (H) 09/10/2023 , BG POCT trend: Results from last 7 days Lab Units 09/16/23 1222 09/16/23 0742 09/16/23 0506 09/16/23 0024 09/15/232008 POCT GLUCOSE mg/dL 212* 174* 195* 182* 202* Nutrition Specific Medications: Reviewed I/O: Last BM Date: 09/12/23; Dietary Orders (From admission, onward) Start Ordered 09/16/23 0847 Adult diet Cardiac, Carb Controlled; 75 gram carb/meal, 45 gram Carb evening snack; 70 gm fat; 2 - 3 grams Sodium Diet effective now Question Answer Comment Diet type Cardiac Diet type Carb Controlled Carb diet selection: 75 gram carb/meal, 45 gram Carb evening snack Fat restriction: 70 gm fat Sodium restriction: 2 - 3 grams Sodium 09/16/23 0846 09/14/23 1314 Oral nutritional supplements Until discontinued Question Answer Comment Deliver with Breakfast Select supplement: Ensure High Protein 09/14/23 1313 09/14/23 0711 Oral nutritional supplements Until discontinued Question Answer Comment Deliver with Dinner Deliver with Lunch Select supplement: Anderson 09/14/23 0711 Estimated Needs: Method for Estimating Needs: 2039-2359kcals (MSJ) Method for Estimating Needs: 80-95g (1.2-1.4g/kg IBW) Method for Estimating Needs: 1800ml or per MD Nutrition Diagnosis Malnutrition Diagnosis Patient has Malnutrition Diagnosis: No Nutrition Diagnosis Patient has Nutrition Diagnosis: Yes Diagnosis Status (1): New Nutrition Diagnosis 1: Increased nutrient needs Related to (1): physiological causes increasing nutrient needs As Evidenced by (1): post op wound healing needs Nutrition Interventions/Recommendations Nutrition Prescription: Individualized Nutrition Prescription Provided for : Cardiac, 75gm carb controlled diet with Anderson twice daily and Ensure high protein once daily Nutrition Interventions: Food and/or Nutrient Delivery Interventions Interventions: Meals and snacks, Medical food supplement Meals and Snacks: Carbohydrate-modified diet, Mineral-modified diet, Fat- modified diet Goal: consume >75% of meals Medical Food Supplement: Commercial beverage Goal: consume 100% of Anderson twice daily (for an additional 90 kcals, 2.5 gm protein, supplement glutamine and arginine) and Ensure high protein once daily (for an additional 160kcals, 16gm protein) Additional Interventions: consider daily MVI with minerals Nutrition Education: Will provide diet education prior to discharge as appropriate Nutrition Monitoring and Evaluation Food/Nutrient Related History Monitoring Monitoring and Evaluation Plan: Energy intake, Fluid intake, Amount of food Energy Intake: Estimated energy intake Criteria: Meal/ONS intake to meet >75% of estimated needs Fluid Intake: Estimated fluid intake Criteria: fluid intake to meet >75% of estimated need Amount of Food: Estimated amout of food, Medical food intake Criteria: Pt to consume >75% of meals/ONS Body Composition/Growth/Weight History Monitoring and Evaluation Plan: Weight Weight: Measured weight Criteria: reweigh daily Biochemical Data, Medical Tests and Procedures Monitoring and Evaluation Plan: Electrolyte/renal panel, Glucose/endocrine profile Criteria: Lab WNL Glucose/Endocrine Profile: Glucose, fasting Criteria: BG <180 Nutrition Focused Physical Findings Monitoring and Evaluation Plan: Skin Criteria: promote wound healing Time Spent/Follow-up Reminder: Time Spent (min): 45 minutes Last Date of Nutrition Visit: 09/16/23 Nutrition Follow-Up Needed?: 3-5 days Follow up Comment: 09/21/23 TG (educate 09/17) * Cristina Jeter MD - 2023 8:37 AM EST [facility] Pulmonary and Critical Care Medicine Consult Subjective Patient is a 78 y.o. male with multivessel CAD, HTN, HLD, DM2 , CKD III, ETHAN on CPAP admitted on 09/13/2023 6:18 AM after planned CABG (TAI-LAD, radial artery- OM1, SVG-OM2 and PDA). Patient arrives intubated and sedated, limiting HPI/ROS. ICU consulted for post-op respiratory insufficiency. --Extubated last evning --Cardiac index 3.9 this morning --Has minimal chest discomfort that iproved with oxycodone --Renal function worsened some, good urinary output --Chest tube present X3 Past Medical History: Past Medical History: Diagnosis Date Diabetes mellitus (CMS/HCC) Hyperlipidemia Hypertension ETHAN, hypothyroidism, CAD, lumbar stenosis with neuropathy, BPH Past Surgical History: Past Surgical History: Procedure Laterality Date CARDIAC CATHETERIZATION N/A 07/29/2023 Procedure: Left Heart Cath; Surgeon: Broderick Garcia MD; Location: [facility] Cardiac Public Health Clinical Nurse Specialist;Service: Cardiovascular; Laterality: N/A; OTHER SURGICAL HISTORY 06/01/2019 Kidney surgery OTHER SURGICAL HISTORY 06/01/2019 Cardiac catheterization OTHER SURGICAL HISTORY 06/01/2019 Colonoscopy OTHER SURGICAL HISTORY 06/01/2019 Epidural steroid injection OTHER SURGICAL HISTORY 06/01/2019 Epidural steroid injection OTHER SURGICAL HISTORY 06/01/2019 Epidural steroid injection OTHER SURGICAL HISTORY 06/01/2019 Epidural steroid injection OTHER SURGICAL HISTORY 06/01/2019 Epidural steroid injection OTHER SURGICAL HISTORY 06/01/2019 Intra-articular corticosteroid injection OTHER SURGICAL HISTORY 06/01/2019 Intra-articular corticosteroid injection OTHER SURGICAL HISTORY 06/01/2019 Esophagogastroduodenoscopy OTHER SURGICAL HISTORY 06/01/2019 Epidural steroid injection OTHER SURGICAL HISTORY 06/27/2019 Thyroid biopsy Family History: Family History Problem Relation Name Age of Onset Diabetes Mother Heart disease Mother Heart attack Mother Cancer Father Diabetes Father Liver cancer Sister Cancer Brother Alcohol abuse Brother Social History: reports that he has never smoked. He has never been exposed to tobacco smoke. He has never used smokeless tobacco. He reports that he does not currently use alcohol. He reports that he does not use drugs. Scheduled Medications: acetaminophen, 975 mg, oral, q6h aspirin, 81 mg, oral, Daily atorvastatin, 40 mg, oral, Nightly ceFAZolin, 2 g, intravenous, q8h cholecalciferol, 2,000 Units, oral, BID cyanocobalamin, 1,000 mcg, oral, Daily enoxaparin, 40 mg, subcutaneous, Daily finasteride, 5 mg, oral, Daily gabapentin, 100 mg, oral, TID insulin lispro, 0-15 Units, subcutaneous, q4h levothyroxine, 175 mcg, oral, Weekly lidocaine, 1 patch, transdermal, q24h magnesium oxide, 400 mg, oral, Daily pantoprazole, 40 mg, oral, Daily before breakfast Or pantoprazole, 40 mg, intravenous, Daily before breakfast psyllium, 1 packet, oral, Daily sennosides-docusate sodium, 2 tablet, oral, BID tamsulosin, 0.4 mg, oral, Daily Continuous Medications: dexmedeTOMIDine, 0-1.5 mcg/kg/hr, Last Rate: Stopped (09/13/23 1700) EPINEPHrine (Adrenalin) 10 mg in dextrose 5 % in water (D5W) 250 mL (0.04 mg/mL) infusion, 0-2 mcg/kg/min norepinephrine, 0-3.3 mcg/kg/min, Last Rate: 0.01 mcg/kg/min (09/13/232115) PRN Medications: PRN medications: albumin human, calcium chloride, calcium chloride, dextrose OR glucagon, electrolyte-A, fentaNYL, magnesium sulfate, magnesium sulfate, metoclopramide OR metoclopramide, naloxone, ondansetron OR ondansetron, oxyCODONE, oxyCODONE, oxygen, potassium chloride, potassium chloride Objective Vitals: Most Recent: Vitals: 09/14/23 0645 BP: Pulse: 72 Resp: 18 Temp: SpO2: 100% 24hr Min/Max: Temp Min: 35.9 C (96.6 F) Max: 36 C (96.8 F) Pulse Min: 63 Max: 87 Resp Min: 8 Max: 37 SpO2 Min: 90 % Max: 100 % LDA: CVC 09/13/23 Triple lumen Right Internal jugular (Active) Placement Date/Time: 09/13/23 (c) 9758 Hand Hygiene Performed Prior to CVC Insertion: Yes Site Prep: Chlorhexidine Site Prep Agent has Completely Dried Before Insertion: Yes All 5 Sterile Barriers Used (Gloves, Gown, Cap, Mask, Large Sterile Jyoti... Number of days: 0 Arterial Line 09/13/23 Right Brachial (Active) Placement Date/Time: 09/13/23 (c) 0735 Size: 20 G Orientation: Right Location: Brachial Securement Method: Transparent dressing Patient Tolerance: Tolerated well Number of days: 0 ETT 8 mm (Active) Placement Date: 09/13/23 Earliest Known Present: 09/13/23 ETT Type: ETT - single Single Lumen Tube Size: 8 mm Cuffed: Yes Location: Oral Comments: Patient arrived from OR intubated. No intubation issues reported by STAFF ENGINEER. Number of days: 0 Urethral Catheter Temperature probe 14 Fr. (Active) Placement Date/Time: 09/13/23 0752 Placed by: Selam Glover - orthodontist assistant Hand Hygiene Completed: Yes Catheter Type: Temperature probe Tube Size (Fr.): 14 Fr. Catheter Balloon Size: 10 mL Urine Returned: Yes Number of days: 0 Chest Tube 1 Left Pleural 28 Fr (Active) Placement Date/Time: 09/13/23 1046 Hand Hygiene Completed: Yes Tube Number: 1 Chest Tube Orientation: Left Chest Tube Location: Pleural Chest Tube Drain Tube Size (Fr): 28 Fr Chest Tube Drainage System: Dry seal chest drain Number of days: 0 Chest Tube 2 Mediastinal 28 Fr (Active) Placement Date/Time: 09/13/23 1046 Hand Hygiene Completed: Yes Tube Number: 2 Chest Tube Location: Mediastinal Chest Tube Drain Tube Size (Fr): 28 Fr Chest Tube Drainage System: Dry seal chest drain Number of days: 0 Chest Tube 3 Right Pleural 28 Fr (Active) Placement Date/Time: 09/13/23 1047 Hand Hygiene Completed: Yes Tube Number: 3 Chest Tube Orientation: Right Chest Tube Location: Pleural Chest Tube Drain Tube Size (Fr): 28 Fr Chest Tube Drainage System: Dry seal chest drain Number of days: 0 Vent settings: Vent Mode: Pressure support FiO2 (%): [30 %-50 %] 32 % S RR: [16] 16 S VT: [500 mL] 500 mL PEEP/CPAP (cm H2O): [5 cm H20] 5 cm H20 W[place] SUP: [5 cm H20] 5 cm H20 MAP (cm H2O): [3.9-10] 3.9 Hemodynamic parameters for last 24 hours: CVP: [10 mmHg-30 mmHg] 10 mmHg CO: [4.3 L/min-5.5 L/min] 5.2 L/min CI: [2.1 L/min/m2-2.7 L/min/m2] 2.6 L/min/m2 Intake/Output Summary (Last 24 hours) at 2023 0837 Last data filed at 2023 0600 Gross per 24 hour Intake 3031.23 ml Output 3035 ml Net -3.77 ml Physical Exam Vitals and nursing note reviewed. Constitutional: Appearance: Normal appearance. HENT: Head: Normocephalic and atraumatic. Mouth/Throat: Mouth: Mucous membranes are moist. Pharynx: Oropharynx is clear. Eyes: Extraocular Movements: Extraocular movements intact. Conjunctiva/sclera: Conjunctivae normal. Cardiovascular: Rate and Rhythm: Normal rate and regular rhythm. Pulses: Normal pulses. Pulmonary: Effort: Pulmonary effort is normal. Breath sounds: Normal breath sounds. Abdominal: General: Bowel sounds are normal. Palpations: Abdomen is soft. Tenderness: There is no abdominal tenderness. There is no guarding. Musculoskeletal: Cervical back: Normal range of motion. Skin: General: Skin is warm. Capillary Refill: Capillary refill takes less than 2 seconds. Neurological: General: No focal deficit present. Mental Status: He is alert and oriented to person, place, and time. Psychiatric: Mood and Affect: Mood normal. Lab/Radiology/Diagnostic Review: Results for orders placed or performed during the hospital encounter of 09/13/23 (from the past 24 hour(s)) Blood Gas Arterial Full Panel Unsolicited Result Value Ref Range POCT pH, Arterial 7.34 (L) 7.38 - 7.42 pH POCT pCO2, Arterial 39 38 - 42 mm Hg POCT pO2, Arterial 170 (H) 85 - 95 mm Hg POCT SO2, Arterial 99 94 - 100 % POCT Oxy Hemoglobin, Arterial 97.1 94.0 - 98.0 % POCT Hematocrit Calculated, Arterial 34.0 (L) 41.0 - 52.0 % POCT Sodium, Arterial 136 136 - 145 mmol/L POCT Potassium, Arterial 3.1 (L) 3.5 - 5.3 mmol/L POCT Chloride, Arterial 102 98 - 107 mmol/L POCT Ionized Calcium, Arterial 1.11 1.10 - 1.33 mmol/L POCT Glucose, Arterial 276 (H) 74 - 99 mg/dL POCT Lactate, Arterial 2.9 (H) 0.4 - 2.0 mmol/L POCT Base Excess, Arterial -4.4 (L) -2.0 - 3.0 mmol/L POCT HCO3 Calculated, Arterial 21.0 (L) 22.0 - 26.0 mmol/L POCT Hemoglobin, Arterial 11.2 (L) 13.5 - 17.5 g/dL POCT Anion Gap, Arterial 16 10 - 25 mmo/L Patient Temperature 37.0 degrees Celsius FiO2 100 % Coox Panel, Arterial Unsolicited Result Value Ref Range POCT Hemoglobin, Arterial 11.2 (L) 13.5 - 17.5 g/dL POCT Oxy Hemoglobin, Arterial 97.1 94.0 - 98.0 % POCT Carboxyhemoglobin, Arterial 1.6 % POCT Methemoglobin, Arterial 0.2 0.0 - 1.5 % POCT Deoxy Hemoglobin, Arterial 1.1 0.0 - 5.0 % Blood Gas Arterial Full Panel Unsolicited Result Value Ref Range POCT pH, Arterial 7.34 (L) 7.38 - 7.42 pH POCT pCO2, Arterial 42 38 - 42 mm Hg POCT pO2, Arterial 303 (H) 85 - 95 mm Hg POCT SO2, Arterial 99 94 - 100 % POCT Oxy Hemoglobin, Arterial 97.5 94.0 - 98.0 % POCT Hematocrit Calculated, Arterial 26.0 (L) 41.0 - 52.0 % POCT Sodium, Arterial 136 136 - 145 mmol/L POCT Potassium, Arterial 4.6 3.5 - 5.3 mmol/L POCT Chloride, Arterial 103 98 - 107 mmol/L POCT Ionized Calcium, Arterial 1.03 (L) 1.10 - 1.33 mmol/L POCT Glucose, Arterial 230 (H) 74 - 99 mg/dL POCT Lactate, Arterial 2.9 (H) 0.4 - 2.0 mmol/L POCT Base Excess, Arterial -2.9 (L) -2.0 - 3.0 mmol/L POCT HCO3 Calculated, Arterial 22.7 22.0 - 26.0 mmol/L POCT Hemoglobin, Arterial 8.8 (L) 13.5 - 17.5 g/dL POCT Anion Gap, Arterial 15 10 - 25 mmo/L Patient Temperature 37.0 degrees Celsius FiO2 80 % Coox Panel, Arterial Unsolicited Result Value Ref Range POCT Hemoglobin, Arterial 8.8 (L) 13.5 - 17.5 g/dL POCT Oxy Hemoglobin, Arterial 97.5 94.0 - 98.0 % POCT Carboxyhemoglobin, Arterial 1.5 % POCT Methemoglobin, Arterial 0.1 0.0 - 1.5 % POCT Deoxy Hemoglobin, Arterial 0.8 0.0 - 5.0 % Blood Gas Arterial Full Panel Unsolicited Result Value Ref Range POCT pH, Arterial 7.36 (L) 7.38 - 7.42 pH POCT pCO2, Arterial 45 (H) 38 - 42 mm Hg POCT pO2, Arterial 350 (H) 85 - 95 mm Hg POCT SO2, Arterial 100 94 - 100 % POCT Oxy Hemoglobin, Arterial 97.8 94.0 - 98.0 % POCT Hematocrit Calculated, Arterial 26.0 (L) 41.0 - 52.0 % POCT Sodium, Arterial 137 136 - 145 mmol/L POCT Potassium, Arterial 4.8 3.5 - 5.3 mmol/L POCT Chloride, Arterial 104 98 - 107 mmol/L POCT Ionized Calcium, Arterial 1.09 (L) 1.10 - 1.33 mmol/L POCT Glucose, Arterial 218 (H) 74 - 99 mg/dL POCT Lactate, Arterial 3.3 (H) 0.4 - 2.0 mmol/L POCT Base Excess, Arterial -0.2 -2.0 - 3.0 mmol/L POCT HCO3 Calculated, Arterial 25.4 22.0 - 26.0 mmol/L POCT Hemoglobin, Arterial 8.8 (L) 13.5 - 17.5 g/dL POCT Anion Gap, Arterial 12 10 - 25 mmo/L Patient Temperature 37.0 degrees Celsius FiO2 90 % Coox Panel, Arterial Unsolicited Result Value Ref Range POCT Hemoglobin, Arterial 8.8 (L) 13.5 - 17.5 g/dL POCT Oxy Hemoglobin, Arterial 97.8 94.0 - 98.0 % POCT Carboxyhemoglobin, Arterial 1.6 % POCT Methemoglobin, Arterial 0.0 0.0 - 1.5 % POCT Deoxy Hemoglobin, Arterial 0.5 0.0 - 5.0 % Blood Gas Arterial Full Panel Unsolicited Result Value Ref Range POCT pH, Arterial 7.39 7.38 - 7.42 pH POCT pCO2, Arterial 37 (L) 38 - 42 mm Hg POCT pO2, Arterial 112 (H) 85 - 95 mm Hg POCT SO2, Arterial 99 94 - 100 % POCT Oxy Hemoglobin, Arterial 97.2 94.0 - 98.0 % POCT Hematocrit Calculated, Arterial 25.0 (L) 41.0 - 52.0 % POCT Sodium, Arterial 136 136 - 145 mmol/L POCT Potassium, Arterial 4.1 3.5 - 5.3 mmol/L POCT Chloride, Arterial 105 98 - 107 mmol/L POCT Ionized Calcium, Arterial 1.41 (H) 1.10 - 1.33 mmol/L POCT Glucose, Arterial 185 (H) 74 - 99 mg/dL POCT Lactate, Arterial 3.8 (H) 0.4 - 2.0 mmol/L POCT Base Excess, Arterial -2.3 (L) -2.0 - 3.0 mmol/L POCT HCO3 Calculated, Arterial 22.4 22.0 - 26.0 mmol/L POCT Hemoglobin, Arterial 8.4 (L) 13.5 - 17.5 g/dL POCT Anion Gap, Arterial 13 10 - 25 mmo/L Patient Temperature 37.0 degrees Celsius FiO2 100 % Coox Panel, Arterial Unsolicited Result Value Ref Range POCT Hemoglobin, Arterial 8.4 (L) 13.5 - 17.5 g/dL POCT Oxy Hemoglobin, Arterial 97.2 94.0 - 98.0 % POCT Carboxyhemoglobin, Arterial 1.8 % POCT Methemoglobin, Arterial 0.0 0.0 - 1.5 % POCT Deoxy Hemoglobin, Arterial 1.1 0.0 - 5.0 % Fibrinogen Result Value Ref Range Fibrinogen 183 (L) 200 - 400 mg/dL Magnesium Result Value Ref Range Magnesium 2.88 (H) 1.60 - 2.40 mg/dL Platelet Count Result Value Ref Range Platelets 130 (L) 150 - 450 x10*3/uL Protime-INR Result Value Ref Range Protime 17.7 (H) 9.8 - 12.8 seconds INR 1.6 (H) 0.9 - 1.1 aPTT Result Value Ref Range aPTT 32 27 - 38 seconds Blood Gas Arterial Full Panel Unsolicited Result Value Ref Range POCT pH, Arterial 7.39 7.38 - 7.42 pH POCT pCO2, Arterial 38 38 - 42 mm Hg POCT pO2, Arterial 183 (H) 85 - 95 mm Hg POCT SO2, Arterial 99 94 - 100 % POCT Oxy Hemoglobin, Arterial 97.4 94.0 - 98.0 % POCT Hematocrit Calculated, Arterial 29.0 (L) 41.0 - 52.0 % POCT Sodium, Arterial 137 136 - 145 mmol/L POCT Potassium, Arterial 3.9 3.5 - 5.3 mmol/L POCT Chloride, Arterial 106 98 - 107 mmol/L POCT Ionized Calcium, Arterial 1.34 (H) 1.10 - 1.33 mmol/L POCT Glucose, Arterial 154 (H) 74 - 99 mg/dL POCT Lactate, Arterial 3.5 (H) 0.4 - 2.0 mmol/L POCT Base Excess, Arterial -1.7 -2.0 - 3.0 mmol/L POCT HCO3 Calculated, Arterial 23.0 22.0 - 26.0 mmol/L POCT Hemoglobin, Arterial 9.5 (L) 13.5 - 17.5 g/dL POCT Anion Gap, Arterial 12 10 - 25 mmo/L Patient Temperature 37.0 degrees Celsius FiO2 100 % Coox Panel, Arterial Unsolicited Result Value Ref Range POCT Hemoglobin, Arterial 9.5 (L) 13.5 - 17.5 g/dL POCT Oxy Hemoglobin, Arterial 97.4 94.0 - 98.0 % POCT Carboxyhemoglobin, Arterial 1.9 % POCT Methemoglobin, Arterial 0.0 0.0 - 1.5 % POCT Deoxy Hemoglobin, Arterial 0.7 0.0 - 5.0 % Calcium, Ionized Result Value Ref Range POCT Calcium, Ionized 1.27 1.1 - 1.33 mmol/L Magnesium Result Value Ref Range Magnesium 2.55 (H) 1.60 - 2.40 mg/dL Coagulation Screen Result Value Ref Range Protime 14.9 (H) 9.8 - 12.8 seconds INR 1.3 (H) 0.9 - 1.1 aPTT 30 27 - 38 seconds Fibrinogen Result Value Ref Range Fibrinogen 208 200 - 400 mg/dL CBC Result Value Ref Range WBC 13.8 (H) 4.4 - 11.3 x10*3/uL nRBC 0.0 0.0 - 0.0 /100 WBCs RBC 3.17 (L) 4.50 - 5.90 x10*6/uL Hemoglobin 10.9 (L) 13.5 - 17.5 g/dL Hematocrit 32.2 (L) 41.0 - 52.0 % MCV 102 (H) 80 - 100 fL MCH 34.4 (H) 26.0 - 34.0 pg MCHC 33.9 32.0 - 36.0 g/dL RDW 13.2 11.5 - 14.5 % Platelets 123 (L) 150 - 450 x10*3/uL Renal Function Panel Result Value Ref Range Glucose 147 (H) 74 - 99 mg/dL Sodium 139 136 - 145 mmol/L Potassium 3.9 3.5 - 5.3 mmol/L Chloride 108 (H) 98 - 107 mmol/L Bicarbonate 23 21 - 32 mmol/L Anion Gap 12 10 - 20 mmol/L Urea Nitrogen 24 (H) 6 - 23 mg/dL Creatinine 1.66 (H) 0.50 - 1.30 mg/dL eGFR 43 (L) >60 mL/min/1.73m*2 Calcium 8.8 8.6 - 10.3 mg/dL Phosphorus 2.3 (L) 2.5 - 4.9 mg/dL Albumin 3.5 3.4 - 5.0 g/dL POCT GLUCOSE Result Value Ref Range POCT Glucose 139 (H) 74 - 99 mg/dL BLOOD GAS ARTERIAL FULL PANEL Result Value Ref Range POCT pH, Arterial 7.36 (L) 7.38 - 7.42 pH POCT pCO2, Arterial 45 (H) 38 - 42 mm Hg POCT pO2, Arterial 97 (H) 85 - 95 mm Hg POCT SO2, Arterial 98 94 - 100 % POCT Oxy Hemoglobin, Arterial 95.6 94.0 - 98.0 % POCT Hematocrit Calculated, Arterial 34.0 (L) 41.0 - 52.0 % POCT Sodium, Arterial 138 136 - 145 mmol/L POCT Potassium, Arterial 4.0 3.5 - 5.3 mmol/L POCT Chloride, Arterial 107 98 - 107 mmol/L POCT Ionized Calcium, Arterial 1.28 1.10 - 1.33 mmol/L POCT Glucose, Arterial 156 (H) 74 - 99 mg/dL POCT Lactate, Arterial 2.2 (H) 0.4 - 2.0 mmol/L POCT Base Excess, Arterial -0.3 -2.0 - 3.0 mmol/L POCT HCO3 Calculated, Arterial 25.4 22.0 - 26.0 mmol/L POCT Hemoglobin, Arterial 11.2 (L) 13.5 - 17.5 g/dL POCT Anion Gap, Arterial 10 10 - 25 mmo/L Patient Temperature 37.0 degrees Celsius FiO2 50 % Ventilator Mode A/C Ventilator Rate 16 bpm Tidal Volume 500 mL Spontaneous Tidal Volume 507 mL Total Minute Volume 8.1 Liter Peep CHM2O 5.0 cm H2O Frequency (BPM) 16 bpm Peak Pressure 25.0 cm H2O Site of Arterial Puncture Arterial Line Blood Gas Arterial Full Panel Result Value Ref Range POCT pH, Arterial 7.33 (L) 7.38 - 7.42 pH POCT pCO2, Arterial 44 (H) 38 - 42 mm Hg POCT pO2, Arterial 98 (H) 85 - 95 mm Hg POCT SO2, Arterial 98 94 - 100 % POCT Oxy Hemoglobin, Arterial 95.8 94.0 - 98.0 % POCT Hematocrit Calculated, Arterial 33.0 (L) 41.0 - 52.0 % POCT Sodium, Arterial 136 136 - 145 mmol/L POCT Potassium, Arterial 4.5 3.5 - 5.3 mmol/L POCT Chloride, Arterial 106 98 - 107 mmol/L POCT Ionized Calcium, Arterial 1.22 1.10 - 1.33 mmol/L POCT Glucose, Arterial 258 (H) 74 - 99 mg/dL POCT Lactate, Arterial 1.5 0.4 - 2.0 mmol/L POCT Base Excess, Arterial -2.7 (L) -2.0 - 3.0 mmol/L POCT HCO3 Calculated, Arterial 23.2 22.0 - 26.0 mmol/L POCT Hemoglobin, Arterial 11.1 (L) 13.5 - 17.5 g/dL POCT Anion Gap, Arterial 11 10 - 25 mmo/L Patient Temperature 37.0 degrees Celsius FiO2 40 % Ventilator Mode CPAP Spontaneous Tidal Volume 410 mL Total Minute Volume 8.7 Liter Peep CHM2O 5.0 cm H2O Frequency (BPM) 21 bpm Pressure Support 5 cm H2O Peak Pressure 10.0 cm H2O Site of Arterial Puncture Arterial Line POCT GLUCOSE Result Value Ref Range POCT Glucose 220 (H) 74 - 99 mg/dL BLOOD GAS ARTERIAL FULL PANEL Result Value Ref Range POCT pH, Arterial 7.33 (L) 7.38 - 7.42 pH POCT pCO2, Arterial 43 (H) 38 - 42 mm Hg POCT pO2, Arterial 76 (L) 85 - 95 mm Hg POCT SO2, Arterial 96 94 - 100 % POCT Oxy Hemoglobin, Arterial 93.6 (L) 94.0 - 98.0 % POCT Hematocrit Calculated, Arterial 33.0 (L) 41.0 - 52.0 % POCT Sodium, Arterial 136 136 - 145 mmol/L POCT Potassium, Arterial 4.7 3.5 - 5.3 mmol/L POCT Chloride, Arterial 105 98 - 107 mmol/L POCT Ionized Calcium, Arterial 1.22 1.10 - 1.33 mmol/L POCT Glucose, Arterial 263 (H) 74 - 99 mg/dL POCT Lactate, Arterial 1.5 0.4 - 2.0 mmol/L POCT Base Excess, Arterial -3.2 (L) -2.0 - 3.0 mmol/L POCT HCO3 Calculated, Arterial 22.7 22.0 - 26.0 mmol/L POCT Hemoglobin, Arterial 10.9 (L) 13.5 - 17.5 g/dL POCT Anion Gap, Arterial 13 10 - 25 mmo/L Patient Temperature 37.0 degrees Celsius FiO2 30 % Ventilator Mode CPAP Spontaneous Tidal Volume 431 mL Total Minute Volume 9.6 Liter Peep CHM2O 5.0 cm H2O Frequency (BPM) 21 bpm Pressure Support 5 cm H2O Peak Pressure 10.0 cm H2O Site of Arterial Puncture Arterial Line POCT GLUCOSE Result Value Ref Range POCT Glucose 197 (H) 74 - 99 mg/dL POCT GLUCOSE Result Value Ref Range POCT Glucose 158 (H) 74 - 99 mg/dL Calcium, Ionized Result Value Ref Range POCT Calcium, Ionized 1.22 1.1 - 1.33 mmol/L Magnesium Result Value Ref Range Magnesium 1.93 1.60 - 2.40 mg/dL CBC Result Value Ref Range WBC 11.7 (H) 4.4 - 11.3 x10*3/uL nRBC 0.0 0.0 - 0.0 /100 WBCs RBC 3.12 (L) 4.50 - 5.90 x10*6/uL Hemoglobin 10.6 (L) 13.5 - 17.5 g/dL Hematocrit 31.9 (L) 41.0 - 52.0 % MCV 102 (H) 80 - 100 fL MCH 34.0 26.0 - 34.0 pg MCHC 33.2 32.0 - 36.0 g/dL RDW 13.5 11.5 - 14.5 % Platelets 153 150 - 450 x10*3/uL Renal Function Panel Result Value Ref Range Glucose 166 (H) 74 - 99 mg/dL Sodium 140 136 - 145 mmol/L Potassium 4.4 3.5 - 5.3 mmol/L Chloride 109 (H) 98 - 107 mmol/L Bicarbonate 23 21 - 32 mmol/L Anion Gap 12 10 - 20 mmol/L Urea Nitrogen 25 (H) 6 - 23 mg/dL Creatinine 1.84 (H) 0.50 - 1.30 mg/dL eGFR 38 (L) >60 mL/min/1.73m*2 Calcium 8.6 8.6 - 10.3 mg/dL Phosphorus 4.5 2.5 - 4.9 mg/dL Albumin 3.6 3.4 - 5.0 g/dL POCT GLUCOSE Result Value Ref Range POCT Glucose 156 (H) 74 - 99 mg/dL Green Top Result Value Ref Range Extra Tube Hold for add-ons. POCT GLUCOSE Result Value Ref Range POCT Glucose 175 (H) 74 - 99 mg/dL All other labs and Imaging have been personally reviewed. Assessment/Plan 77 year old male with CKD III, CAD, DM, HTN, HLD, BPH, ETHAN admitted post-op CABG. 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 Hold imdur, lisinopril, Toprol XL Pulmonary: #Post-op respiratory insufficiency, as expected, now on minimal oxygen supplementation #ETHAN -CPAP QHS GI: -PPI prophylaxis. Bowel regimen. Renal/: #CKD III #BPH -Baseline creatinine ~1.6. Currently near baseline -Continue finasteride and tamsulosin Endocrine: #History of T2DM, controlled (A1c 6.4 08/2023) #Hypothyroidism -Hold glipizide and metformin. SSI q4hrs -Continue levothyroxine Heme/Onc: #Post-op anemia and thrombocytopenia, as expected -Preop Hgb 13.2 and normal platelets. Postop Hgb 10.9 and platelets 123. ID: #Post-op leukocytosis, likely reactive -Periop ancef ICU CHECK LIST: Antimicrobials: ancef Oxygen: vent Feeding: pending SBT Sedation: precedex Thromboprophylaxis: SCDs, lovenox Ulcer prophylaxis: PPI Glycemic control: BGM with SSI Lines/catheters: ortega, chest tubes, RIJ CVC, right brachial art line, PIV, ETT, OG Dispo: CICU Code Status: full CRITICAL CARE MEDICINE ATTENDING NOTE I saw and evaluated the patient. I personally obtained the freeman and critical portions of the historyand physical examination. I reviewed the resident's documentation and discussed the patient with the resident. I agree with the resident's medical decision making as documented in the resident's note. The patient has high probability of sudden, clinically significant deterioration, which requires urgent interventions. I managed/supervised life supporting interventions that required frequent physician assessment. I spent 40 critical care minutes of my full attention on this patient's management and direct patient care. Time I spent with family or surrogate(s) is included if the patient was incapable of providing information or participating in medical decision making. Time devoted to teachingand to any procedures I billed separately is not included. Medical issues requiring critical care management include: Cristina De Souza MD Pulmonary and Critical Care Medicine * Cristina Jeter MD - 09/13/2023 12:56 PM EST [facility] Pulmonary and Critical Care Medicine Consult Subjective Patient is a 77 y.o. male with multivessel CAD, HTN, HLD, DM2 , CKD III, ETHAN on CPAP admitted on 09/13/2023 6:18 AM after planned CABG (TAI-LAD, radial artery- OM1, SVG-OM2 and PDA). Patient arrives intubated and sedated, limiting HPI/ROS. ICU consulted for post-op respiratory insufficiency. Past Medical History: Past Medical History: Diagnosis Date Diabetes mellitus (CMS/HCC) Hyperlipidemia Hypertension ETHAN, hypothyroidism, CAD, lumbar stenosis with neuropathy, BPH Past Surgical History: Past Surgical History: Procedure Laterality Date CARDIAC CATHETERIZATION N/A 07/29/2023 Procedure: Left Heart Cath; Surgeon: Broderick Garcia MD; Location: [facility] Cardiac Public Health Clinical Nurse Specialist;Service: Cardiovascular; Laterality: N/A; OTHER SURGICAL HISTORY 06/01/2019 Kidney surgery OTHER SURGICAL HISTORY 06/01/2019 Cardiac catheterization OTHER SURGICAL HISTORY 06/01/2019 Colonoscopy OTHER SURGICAL HISTORY 06/01/2019 Epidural steroid injection OTHER SURGICAL HISTORY 06/01/2019 Epidural steroid injection OTHER SURGICAL HISTORY 06/01/2019 Epidural steroid injection OTHER SURGICAL HISTORY 06/01/2019 Epidural steroid injection OTHER SURGICAL HISTORY 06/01/2019 Epidural steroid injection OTHER SURGICAL HISTORY 06/01/2019 Intra-articular corticosteroid injection OTHER SURGICAL HISTORY 06/01/2019 Intra-articular corticosteroid injection OTHER SURGICAL HISTORY 06/01/2019 Esophagogastroduodenoscopy OTHER SURGICAL HISTORY 06/01/2019 Epidural steroid injection OTHER SURGICAL HISTORY 06/27/2019 Thyroid biopsy Family History: Family History Problem Relation Name Age of Onset Diabetes Mother Heart disease Mother Heart attack Mother Cancer Father Diabetes Father Liver cancer Sister Cancer Brother Alcohol abuse Brother Social History: reports that he has never smoked. He has never been exposed to tobacco smoke. He has never used smokeless tobacco. He reports that he does not currently use alcohol. He reports that he does not use drugs. Scheduled Medications: acetaminophen, 975 mg, oral, q6h aspirin, 81 mg, oral, Daily atorvastatin, 40 mg, oral, Nightly ceFAZolin, 2 g, intravenous, q8h cholecalciferol, 2,000 Units, oral, BID cyanocobalamin, 1,000 mcg, oral, Daily [START ON 2023] enoxaparin, 40 mg, subcutaneous, Daily finasteride, 5 mg, oral, Daily gabapentin, 100 mg, oral, TID insulin lispro, 0-15 Units, subcutaneous, q4h [START ON 2023] levothyroxine, 175 mcg, oral, Weekly lidocaine, 1 patch, transdermal, q24h magnesium oxide, 400 mg, oral, Daily [START ON 2023] pantoprazole, 40 mg, oral, Daily before breakfast Or [START ON 2023] pantoprazole, 40 mg, intravenous, Daily before breakfast psyllium, 1 packet, oral, Daily sennosides-docusate sodium, 2 tablet, oral, BID sugammadex, 2 mg/kg, intravenous, Once tamsulosin, 0.4 mg, oral, Daily Continuous Medications: dexmedeTOMIDine, 0-1.5 mcg/kg/hr EPINEPHrine (Adrenalin) 10 mg in dextrose 5 % in water (D5W) 250 mL (0.04 mg/mL) infusion, 0-2 mcg/kg/min norepinephrine, 0-3.3 mcg/kg/min, Last Rate: 0.02 mcg/kg/min (09/13/23 1148) PRN Medications: PRN medications: albumin human, calcium chloride, calcium chloride, dextrose OR glucagon, electrolyte-A, fentaNYL, magnesium sulfate, magnesium sulfate, metoclopramide OR metoclopramide, naloxone, ondansetron OR ondansetron, oxyCODONE, oxyCODONE, oxygen, potassium chloride, potassium chloride Objective Vitals: Most Recent: Vitals: 09/13/23 1231 BP: Pulse: Resp: 16 Temp: SpO2: 100% 24hr Min/Max: Temp Min: 36.6 C (97.9 F) Max: 36.6 C (97.9 F) Pulse Min: 78 Max: 78 BP Min: 156/84 Max: 156/84 Resp Min: 16 Max: 18 SpO2 Min: 97 % Max: 100 % LDA: CVC 09/13/23 Triple lumen Right Internal jugular (Active) Placement Date/Time: 09/13/23 (c) 0758 Hand Hygiene Performed Prior to CVC Insertion: Yes Site Prep: Chlorhexidine Site Prep Agent has Completely Dried Before Insertion: Yes All 5 Sterile Barriers Used (Gloves, Gown, Cap, Mask, Large Sterile Jyoti... Number of days: 0 Arterial Line 09/13/23 Right Brachial (Active) Placement Date/Time: 09/13/23 (c) 0773 Size: 20 G Orientation: Right Location: Brachial Securement Method: Transparent dressing Patient Tolerance: Tolerated well Number of days: 0 ETT 8 mm (Active) Placement Date: 09/13/23 Earliest Known Present: 09/13/23 ETT Type: ETT - single Single Lumen Tube Size: 8 mm Cuffed: Yes Location: Oral Comments: Patient arrived from OR intubated. No intubation issues reported by STAFF ENGINEER. Number of days: 0 Urethral Catheter Temperature probe 14 Fr. (Active) Placement Date/Time: 09/13/23 0752 Placed by: Selam Glover - Hand Hygiene Completed: Yes Catheter Type: Temperature probe Tube Size (Fr.): 14 Fr. Catheter Balloon Size: 10 mL Urine Returned: Yes Number of days: 0 Chest Tube 1 Left Pleural 28 Fr (Active) Placement Date/Time: 09/13/23 1046 Hand Hygiene Completed: Yes Tube Number: 1 Chest Tube Orientation: Left Chest Tube Location: Pleural Chest Tube Drain Tube Size (Fr): 28 Fr Chest Tube Drainage System: Dry seal chest drain Number of days: 0 Chest Tube 2 Mediastinal 28 Fr (Active) Placement Date/Time: 09/13/23 1046 Hand Hygiene Completed: Yes Tube Number: 2 Chest Tube Location: Mediastinal Chest Tube Drain Tube Size (Fr): 28 Fr Chest Tube Drainage System: Dry seal chest drain Number of days: 0 Chest Tube 3 Right Pleural 28 Fr (Active) Placement Date/Time: 09/13/23 1047 Hand Hygiene Completed: Yes Tube Number: 3 Chest Tube Orientation: Right Chest Tube Location: Pleural Chest Tube Drain Tube Size (Fr): 28 Fr Chest Tube Drainage System: Dry seal chest drain Number of days: 0 Vent settings: Vent Mode: Volume control/assist control FiO2 (%): [50 %] 50 % S RR: [16] 16 S VT: [500 mL] 500 mL PEEP/CPAP (cm H2O): [5 cm H20] 5 cm H20 MAP (cm H2O): [10] 10 Hemodynamic parameters for last 24 hours: Intake/Output Summary (Last 24 hours) at 09/13/2023 1256 Last data filed at 09/13/2023 1148 Gross per 24 hour Intake 2600 ml Output 1200 ml Net 1400 ml Physical exam: General: Resting in bed, sedated HEENT: Normocephalic, atraumatic. Intubated. Neck: RIJ CVC Chest: Diminished breath sounds. Chest tubes in place. CV: Regular rate and rhythm. Abdomen: Abdomen is soft, non-distended. Extremities: No lower extremity edema. Neurological: Sedation. Skin: Warm and dry. Psych: Unable to assess Lab/Radiology/Diagnostic Review: Results for orders placed or performed during the hospital encounter of 09/13/23 (from the past 24 hour(s)) Prepare RBC: 2 Units Result Value Ref Range PRODUCT CODE S9466O81 Unit Number [id number] Unit ABO O Unit RH NEG XM INTEP COMP Dispense Status XM Blood Expiration Date October 06, 2023 23:59 EST PRODUCT BLOOD TYPE 9500 UNIT VOLUME 350 PRODUCT CODE [id number] Unit Number [id number] Unit ABO O Unit RH NEG XM INTEP COMP Dispense Status XM Blood Expiration Date October 06, 2023 23:59 EST PRODUCT BLOOD TYPE 9500 UNIT VOLUME 350 Blood Gas Arterial Full Panel Unsolicited Result Value Ref Range POCT pH, Arterial 7.32 (L) 7.38 - 7.42 pH POCT pCO2, Arterial 51 (H) 38 - 42 mm Hg POCT pO2, Arterial 397 (H) 85 - 95 mm Hg POCT SO2, Arterial 99 94 - 100 % POCT Oxy Hemoglobin, Arterial 96.8 94.0 - 98.0 % POCT Hematocrit Calculated, Arterial 36.0 (L) 41.0 - 52.0 % POCT Sodium, Arterial 137 136 - 145 mmol/L POCT Potassium, Arterial 3.9 3.5 - 5.3 mmol/L POCT Chloride, Arterial 103 98 - 107 mmol/L POCT Ionized Calcium, Arterial 1.21 1.10 - 1.33 mmol/L POCT Glucose, Arterial 168 (H) 74 - 99 mg/dL POCT Lactate, Arterial 1.6 0.4 - 2.0 mmol/L POCT Base Excess, Arterial -0.4 -2.0 - 3.0 mmol/L POCT HCO3 Calculated, Arterial 26.3 (H) 22.0 - 26.0 mmol/L POCT Hemoglobin, Arterial 12.1 (L) 13.5 - 17.5 g/dL POCT Anion Gap, Arterial 12 10 - 25 mmo/L Patient Temperature 37.0 degrees Celsius FiO2 100 % Coox Panel, Arterial Unsolicited Result Value Ref Range POCT Hemoglobin, Arterial 12.1 (L) 13.5 - 17.5 g/dL POCT Oxy Hemoglobin, Arterial 96.8 94.0 - 98.0 % POCT Carboxyhemoglobin, Arterial 1.2 % POCT Methemoglobin, Arterial 0.9 0.0 - 1.5 % POCT Deoxy Hemoglobin, Arterial 1.2 0.0 - 5.0 % Blood Gas Arterial Full Panel Unsolicited Result Value Ref Range POCT pH, Arterial 7.34 (L) 7.38 - 7.42 pH POCT pCO2, Arterial 39 38 - 42 mm Hg POCT pO2, Arterial 170 (H) 85 - 95 mm Hg POCT SO2, Arterial 99 94 - 100 % POCT Oxy Hemoglobin, Arterial 97.1 94.0 - 98.0 % POCT Hematocrit Calculated, Arterial 34.0 (L) 41.0 - 52.0 % POCT Sodium, Arterial 136 136 - 145 mmol/L POCT Potassium, Arterial 3.1 (L) 3.5 - 5.3 mmol/L POCT Chloride, Arterial 102 98 - 107 mmol/L POCT Ionized Calcium, Arterial 1.11 1.10 - 1.33 mmol/L POCT Glucose, Arterial 276 (H) 74 - 99 mg/dL POCT Lactate, Arterial 2.9 (H) 0.4 - 2.0 mmol/L POCT Base Excess, Arterial -4.4 (L) -2.0 - 3.0 mmol/L POCT HCO3 Calculated, Arterial 21.0 (L) 22.0 - 26.0 mmol/L POCT Hemoglobin, Arterial 11.2 (L) 13.5 - 17.5 g/dL POCT Anion Gap, Arterial 16 10 - 25 mmo/L Patient Temperature 37.0 degrees Celsius FiO2 100 % Coox Panel, Arterial Unsolicited Result Value Ref Range POCT Hemoglobin, Arterial 11.2 (L) 13.5 - 17.5 g/dL POCT Oxy Hemoglobin, Arterial 97.1 94.0 - 98.0 % POCT Carboxyhemoglobin, Arterial 1.6 % POCT Methemoglobin, Arterial 0.2 0.0 - 1.5 % POCT Deoxy Hemoglobin, Arterial 1.1 0.0 - 5.0 % Blood Gas Arterial Full Panel Unsolicited Result Value Ref Range POCT pH, Arterial 7.34 (L) 7.38 - 7.42 pH POCT pCO2, Arterial 42 38 - 42 mm Hg POCT pO2, Arterial 303 (H) 85 - 95 mm Hg POCT SO2, Arterial 99 94 - 100 % POCT Oxy Hemoglobin, Arterial 97.5 94.0 - 98.0 % POCT Hematocrit Calculated, Arterial 26.0 (L) 41.0 - 52.0 % POCT Sodium, Arterial 136 136 - 145 mmol/L POCT Potassium, Arterial 4.6 3.5 - 5.3 mmol/L POCT Chloride, Arterial 103 98 - 107 mmol/L POCT Ionized Calcium, Arterial 1.03 (L) 1.10 - 1.33 mmol/L POCT Glucose, Arterial 230 (H) 74 - 99 mg/dL POCT Lactate, Arterial 2.9 (H) 0.4 - 2.0 mmol/L POCT Base Excess, Arterial -2.9 (L) -2.0 - 3.0 mmol/L POCT HCO3 Calculated, Arterial 22.7 22.0 - 26.0 mmol/L POCT Hemoglobin, Arterial 8.8 (L) 13.5 - 17.5 g/dL POCT Anion Gap, Arterial 15 10 - 25 mmo/L Patient Temperature 37.0 degrees Celsius FiO2 80 % Coox Panel, Arterial Unsolicited Result Value Ref Range POCT Hemoglobin, Arterial 8.8 (L) 13.5 - 17.5 g/dL POCT Oxy Hemoglobin, Arterial 97.5 94.0 - 98.0 % POCT Carboxyhemoglobin, Arterial 1.5 % POCT Methemoglobin, Arterial 0.1 0.0 - 1.5 % POCT Deoxy Hemoglobin, Arterial 0.8 0.0 - 5.0 % Blood Gas Arterial Full Panel Unsolicited Result Value Ref Range POCT pH, Arterial 7.36 (L) 7.38 - 7.42 pH POCT pCO2, Arterial 45 (H) 38 - 42 mm Hg POCT pO2, Arterial 350 (H) 85 - 95 mm Hg POCT SO2, Arterial 100 94 - 100 % POCT Oxy Hemoglobin, Arterial 97.8 94.0 - 98.0 % POCT Hematocrit Calculated, Arterial 26.0 (L) 41.0 - 52.0 % POCT Sodium, Arterial 137 136 - 145 mmol/L POCT Potassium, Arterial 4.8 3.5 - 5.3 mmol/L POCT Chloride, Arterial 104 98 - 107 mmol/L POCT Ionized Calcium, Arterial 1.09 (L) 1.10 - 1.33 mmol/L POCT Glucose, Arterial 218 (H) 74 - 99 mg/dL POCT Lactate, Arterial 3.3 (H) 0.4 - 2.0 mmol/L POCT Base Excess, Arterial -0.2 -2.0 - 3.0 mmol/L POCT HCO3 Calculated, Arterial 25.4 22.0 - 26.0 mmol/L POCT Hemoglobin, Arterial 8.8 (L) 13.5 - 17.5 g/dL POCT Anion Gap, Arterial 12 10 - 25 mmo/L Patient Temperature 37.0 degrees Celsius FiO2 90 % Coox Panel, Arterial Unsolicited Result Value Ref Range POCT Hemoglobin, Arterial 8.8 (L) 13.5 - 17.5 g/dL POCT Oxy Hemoglobin, Arterial 97.8 94.0 - 98.0 % POCT Carboxyhemoglobin, Arterial 1.6 % POCT Methemoglobin, Arterial 0.0 0.0 - 1.5 % POCT Deoxy Hemoglobin, Arterial 0.5 0.0 - 5.0 % Blood Gas Arterial Full Panel Unsolicited Result Value Ref Range POCT pH, Arterial 7.39 7.38 - 7.42 pH POCT pCO2, Arterial 37 (L) 38 - 42 mm Hg POCT pO2, Arterial 112 (H) 85 - 95 mm Hg POCT SO2, Arterial 99 94 - 100 % POCT Oxy Hemoglobin, Arterial 97.2 94.0 - 98.0 % POCT Hematocrit Calculated, Arterial 25.0 (L) 41.0 - 52.0 % POCT Sodium, Arterial 136 136 - 145 mmol/L POCT Potassium, Arterial 4.1 3.5 - 5.3 mmol/L POCT Chloride, Arterial 105 98 - 107 mmol/L POCT Ionized Calcium, Arterial 1.41 (H) 1.10 - 1.33 mmol/L POCT Glucose, Arterial 185 (H) 74 - 99 mg/dL POCT Lactate, Arterial 3.8 (H) 0.4 - 2.0 mmol/L POCT Base Excess, Arterial -2.3 (L) -2.0 - 3.0 mmol/L POCT HCO3 Calculated, Arterial 22.4 22.0 - 26.0 mmol/L POCT Hemoglobin, Arterial 8.4 (L) 13.5 - 17.5 g/dL POCT Anion Gap, Arterial 13 10 - 25 mmo/L Patient Temperature 37.0 degrees Celsius FiO2 100 % Coox Panel, Arterial Unsolicited Result Value Ref Range POCT Hemoglobin, Arterial 8.4 (L) 13.5 - 17.5 g/dL POCT Oxy Hemoglobin, Arterial 97.2 94.0 - 98.0 % POCT Carboxyhemoglobin, Arterial 1.8 % POCT Methemoglobin, Arterial 0.0 0.0 - 1.5 % POCT Deoxy Hemoglobin, Arterial 1.1 0.0 - 5.0 % Fibrinogen Result Value Ref Range Fibrinogen 183 (L) 200 - 400 mg/dL Magnesium Result Value Ref Range Magnesium 2.88 (H) 1.60 - 2.40 mg/dL Platelet Count Result Value Ref Range Platelets 130 (L) 150 - 450 x10*3/uL Protime-INR Result Value Ref Range Protime 17.7 (H) 9.8 - 12.8 seconds INR 1.6 (H) 0.9 - 1.1 aPTT Result Value Ref Range aPTT 32 27 - 38 seconds Blood Gas Arterial Full Panel Unsolicited Result Value Ref Range POCT pH, Arterial 7.39 7.38 - 7.42 pH POCT pCO2, Arterial 38 38 - 42 mm Hg POCT pO2, Arterial 183 (H) 85 - 95 mm Hg POCT SO2, Arterial 99 94 - 100 % POCT Oxy Hemoglobin, Arterial 97.4 94.0 - 98.0 % POCT Hematocrit Calculated, Arterial 29.0 (L) 41.0 - 52.0 % POCT Sodium, Arterial 137 136 - 145 mmol/L POCT Potassium, Arterial 3.9 3.5 - 5.3 mmol/L POCT Chloride, Arterial 106 98 - 107 mmol/L POCT Ionized Calcium, Arterial 1.34 (H) 1.10 - 1.33 mmol/L POCT Glucose, Arterial 154 (H) 74 - 99 mg/dL POCT Lactate, Arterial 3.5 (H) 0.4 - 2.0 mmol/L POCT Base Excess, Arterial -1.7 -2.0 - 3.0 mmol/L POCT HCO3 Calculated, Arterial 23.0 22.0 - 26.0 mmol/L POCT Hemoglobin, Arterial 9.5 (L) 13.5 - 17.5 g/dL POCT Anion Gap, Arterial 12 10 - 25 mmo/L Patient Temperature 37.0 degrees Celsius FiO2 100 % Coox Panel, Arterial Unsolicited Result Value Ref Range POCT Hemoglobin, Arterial 9.5 (L) 13.5 - 17.5 g/dL POCT Oxy Hemoglobin, Arterial 97.4 94.0 - 98.0 % POCT Carboxyhemoglobin, Arterial 1.9 % POCT Methemoglobin, Arterial 0.0 0.0 - 1.5 % POCT Deoxy Hemoglobin, Arterial 0.7 0.0 - 5.0 % POCT GLUCOSE Result Value Ref Range POCT Glucose 139 (H) 74 - 99 mg/dL All other labs and Imaging have been personally reviewed. Assessment/Plan 77 year old male with CKD III, CAD, DM, HTN, HLD, BPH, ETHAN admitted post-op CABG. 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 Hold imdur, lisinopril, Toprol XL Pulmonary: #Post-op respiratory insufficiency, as expected #ETHAN -On ventilator, will trial SBT this afternoon. -CPAP QHS GI: -PPI prophylaxis. Bowel regimen. Renal/: #CKD III #BPH -Baseline creatinine ~1.6. Currently near baseline -Continue finasteride and tamsulosin Endocrine: #History of T2DM, controlled (A1c 6.4 08/2023) #Hypothyroidism -Hold glipizide and metformin. SSI q4hrs -Continue levothyroxine Heme/Onc: #Post-op anemia and thrombocytopenia, as expected -Preop Hgb 13.2 and normal platelets. Postop Hgb 10.9 and platelets 123. ID: #Post-op leukocytosis, likely reactive -Periop ancef ICU CHECK LIST: Antimicrobials: ancef Oxygen: vent Feeding: pending SBT Sedation: precedex Thromboprophylaxis: SCDs, lovenox Ulcer prophylaxis: PPI Glycemic control: BGM with SSI Lines/catheters: ortega, chest tubes, RIJ CVC, right brachial art line, PIV, ETT, OG Dispo: CICU Code Status: full CRITICAL CARE MEDICINE ATTENDING NOTE I saw and evaluated the patient. I personally obtained the freeman and critical portions of the historyand physical examination. I reviewed the resident's documentation and discussed the patient with the resident. I agree with the resident's medical decision making as documented in the resident's note. The patient has high probability of sudden, clinically significant deterioration, which requires urgent interventions. I managed/supervised life supporting interventions that required frequent physician assessment. I spent 40 critical care minutes of my full attention on this patient's management and direct patient care. Time I spent with family or surrogate(s) is included if the patient was incapable of providing information or participating in medical decision making. Time devoted to teachingand to any procedures I billed separately is not included. Medical issues requiring critical care management include: Cristina De Souza MD Pulmonary and Critical Care Medicine documented in this [facility] Work Phone: [phone] History and physical note* Mary Garcia, HAND TACKER-DISPENSING LEAD - 09/13/2023 11:25 AM EST [facility] Cardiothoracic Surgery History Of Present Illness Ruth Mackey is a 77 y.o. male with a PMH significant for CAD (s/p PCI in 2018), Essential HTN, HLD, T2DM, and Hypothyroidism who presents to [facility] on 09/13/2023 for a staged CABG with cardiac surgeon, Dr. Jose Carlos Malagon. Subjective Past Medical History He has a past medical history of Diabetes mellitus (CMS/HCC), Hyperlipidemia, and Hypertension. Surgical History He has a past surgical history that includes Other surgical history (06/01/2019); Other surgical history (06/01/2019); Other surgical history (06/01/2019); Other surgical history (06/01/2019); Other surgical history (06/01/2019); Other surgical history (06/01/2019); Other surgical history (06/01/2019); Other surgical history (06/01/2019); Other surgical history (06/01/2019); Other surgical history (06/01/2019); Other surgical history (06/01/2019); Other surgical history (06/01/2019); Other surgical history (06/27/2019); and Cardiac catheterization (N/A, 07/29/2023). Social History He reports that he has never smoked. He has never been exposed to tobacco smoke. He has never used smokeless tobacco. He reports that he does not currently use alcohol. He reports that he does not use drugs. Family History Family History Problem Relation Name Age of Onset Diabetes Mother Heart disease Mother Heart attack Mother Cancer Father Diabetes Father Liver cancer Sister Cancer Brother Alcohol abuse Brother Allergies Patient has no known allergies. Review of Systems Unable to perform ROS: Intubated Objective Physical Exam Vitals and nursing note reviewed. Constitutional: General: He is not in acute distress. Appearance: He is ill-appearing. He is not diaphoretic. Interventions: He is sedated and intubated. HENT: Head: Normocephalic and atraumatic. Nose: Nose normal. Mouth/Throat: Mouth: Mucous membranes are dry. Pharynx: No oropharyngeal exudate. Eyes: Extraocular Movements: Extraocular movements intact. Pupils: Pupils are equal, round, and reactive to light. Cardiovascular: Rate and Rhythm: Normal rate and regular rhythm. Pulses: Normal pulses. Heart sounds: Normal heart sounds, S1 normal and S2 normal. No murmur heard. No friction rub. No gallop. Pulmonary: Effort: Pulmonary effort is normal. No tachypnea or bradypnea. He is intubated. Breath sounds: Examination of the right-lower field reveals decreased breath sounds. Examination ofthe left-lower field reveals decreased breath sounds. Decreased breath sounds present. Musculoskeletal: Cervical back: Normal range of motion and neck supple. No edema. Neurological: GCS: GCS eye subscore is 1. GCS verbal subscore is 1. GCS motor subscore is 1. Cranial Nerves: Cranial nerves 2-12 are intact. Home Medications Current Outpatient Medications Medication Instructions aspirin 81 mg EC tablet 1 tablet, oral, Daily atorvastatin (Lipitor) 40 mg tablet 1 tablet, oral, Nightly cholecalciferol (Vitamin D-3) 50 MCG (2000 UT) tablet 1 tablet, oral, 2 times daily ciprofloxacin (CIPRO) 500 mg, oral, 2 times daily clopidogrel (PLAVIX) 75 mg, oral, Daily cyanocobalamin (Vitamin B-12) 1,000 mcg tablet 1 tablet, oral, Daily finasteride (Proscar) 5 mg tablet 1 tablet, oral, Daily glipiZIDE (Glucotrol) 5 mg tablet 1 tablet, oral, 2 times daily isosorbide mononitrate ER (Imdur) 30 mg 24 hr tablet 1 tablet, oral, Daily lisinopril 5 mg, oral, Daily magnesium oxide (Mag-Ox) 420 mg tablet 1 tablet, oral, 3 times daily metFORMIN XR 500 mg 24 hr tablet 1 tablet (500 mg) 2 times a day. metoprolol succinate XL (TOPROL-XL) 100 mg, oral, Daily nitroglycerin (NITROSTAT) 0.4 mg, sublingual, Every 5 min PRN, TAKE DIRECTED. Synthroid 175 mcg, oral, Weekly tamsulosin (Flomax) 0.4 mg 24 hr capsule 1 capsule, oral, Daily Inpatient Medications Scheduled medications Continuous medications EPINEPHrine (Adrenalin) 10 mg in dextrose 5 % in water (D5W) 250 mL (0.04 mg/mL) infusion, 0-2 mcg/kg/min norepinephrine, 0-3.3 mcg/kg/min, Last Rate: 0.05 mcg/kg/min (09/13/23 0935) PRN medications PRN medications: vancomycin Relevant Results Labs Results for orders placed or performed during the hospital encounter of 09/13/23 (from the past 24 hour(s)) Prepare RBC: 2 Units Result Value Ref Range PRODUCT CODE U7906L09 Unit Number [id number] Unit ABO O Unit RH NEG XM INTEP COMP Dispense Status IS Blood Expiration Date October 06, 2023 23:59 EST PRODUCT BLOOD TYPE 9500 UNIT VOLUME 350 PRODUCT CODE [id number] Unit Number [id number] Unit ABO O Unit RH NEG XM INTEP COMP Dispense Status IS Blood Expiration Date October 06, 2023 23:59 EST PRODUCT BLOOD TYPE 9500 UNIT VOLUME 350 Blood Gas Arterial Full Panel Unsolicited Result Value Ref Range POCT pH, Arterial 7.32 (L) 7.38 - 7.42 pH POCT pCO2, Arterial 51 (H) 38 - 42 mm Hg POCT pO2, Arterial 397 (H) 85 - 95 mm Hg POCT SO2, Arterial 99 94 - 100 % POCT Oxy Hemoglobin, Arterial 96.8 94.0 - 98.0 % POCT Hematocrit Calculated, Arterial 36.0 (L) 41.0 - 52.0 % POCT Sodium, Arterial 137 136 - 145 mmol/L POCT Potassium, Arterial 3.9 3.5 - 5.3 mmol/L POCT Chloride, Arterial 103 98 - 107 mmol/L POCT Ionized Calcium, Arterial 1.21 1.10 - 1.33 mmol/L POCT Glucose, Arterial 168 (H) 74 - 99 mg/dL POCT Lactate, Arterial 1.6 0.4 - 2.0 mmol/L POCT Base Excess, Arterial -0.4 -2.0 - 3.0 mmol/L POCT HCO3 Calculated, Arterial 26.3 (H) 22.0 - 26.0 mmol/L POCT Hemoglobin, Arterial 12.1 (L) 13.5 - 17.5 g/dL POCT Anion Gap, Arterial 12 10 - 25 mmo/L Patient Temperature 37.0 degrees Celsius FiO2 100 % Coox Panel, Arterial Unsolicited Result Value Ref Range POCT Hemoglobin, Arterial 12.1 (L) 13.5 - 17.5 g/dL POCT Oxy Hemoglobin, Arterial 96.8 94.0 - 98.0 % POCT Carboxyhemoglobin, Arterial 1.2 % POCT Methemoglobin, Arterial 0.9 0.0 - 1.5 % POCT Deoxy Hemoglobin, Arterial 1.2 0.0 - 5.0 % Blood Gas Arterial Full Panel Unsolicited Result Value Ref Range POCT pH, Arterial 7.34 (L) 7.38 - 7.42 pH POCT pCO2, Arterial 39 38 - 42 mm Hg POCT pO2, Arterial 170 (H) 85 - 95 mm Hg POCT SO2, Arterial 99 94 - 100 % POCT Oxy Hemoglobin, Arterial 97.1 94.0 - 98.0 % POCT Hematocrit Calculated, Arterial 34.0 (L) 41.0 - 52.0 % POCT Sodium, Arterial 136 136 - 145 mmol/L POCT Potassium, Arterial 3.1 (L) 3.5 - 5.3 mmol/L POCT Chloride, Arterial 102 98 - 107 mmol/L POCT Ionized Calcium, Arterial 1.11 1.10 - 1.33 mmol/L POCT Glucose, Arterial 276 (H) 74 - 99 mg/dL POCT Lactate, Arterial 2.9 (H) 0.4 - 2.0 mmol/L POCT Base Excess, Arterial -4.4 (L) -2.0 - 3.0 mmol/L POCT HCO3 Calculated, Arterial 21.0 (L) 22.0 - 26.0 mmol/L POCT Hemoglobin, Arterial 11.2 (L) 13.5 - 17.5 g/dL POCT Anion Gap, Arterial 16 10 - 25 mmo/L Patient Temperature 37.0 degrees Celsius FiO2 100 % Coox Panel, Arterial Unsolicited Result Value Ref Range POCT Hemoglobin, Arterial 11.2 (L) 13.5 - 17.5 g/dL POCT Oxy Hemoglobin, Arterial 97.1 94.0 - 98.0 % POCT Carboxyhemoglobin, Arterial 1.6 % POCT Methemoglobin, Arterial 0.2 0.0 - 1.5 % POCT Deoxy Hemoglobin, Arterial 1.1 0.0 - 5.0 % Blood Gas Arterial Full Panel Unsolicited Result Value Ref Range POCT pH, Arterial 7.34 (L) 7.38 - 7.42 pH POCT pCO2, Arterial 42 38 - 42 mm Hg POCT pO2, Arterial 303 (H) 85 - 95 mm Hg POCT SO2, Arterial 99 94 - 100 % POCT Oxy Hemoglobin, Arterial 97.5 94.0 - 98.0 % POCT Hematocrit Calculated, Arterial 26.0 (L) 41.0 - 52.0 % POCT Sodium, Arterial 136 136 - 145 mmol/L POCT Potassium, Arterial 4.6 3.5 - 5.3 mmol/L POCT Chloride, Arterial 103 98 - 107 mmol/L POCT Ionized Calcium, Arterial 1.03 (L) 1.10 - 1.33 mmol/L POCT Glucose, Arterial 230 (H) 74 - 99 mg/dL POCT Lactate, Arterial 2.9 (H) 0.4 - 2.0 mmol/L POCT Base Excess, Arterial -2.9 (L) -2.0 - 3.0 mmol/L POCT HCO3 Calculated, Arterial 22.7 22.0 - 26.0 mmol/L POCT Hemoglobin, Arterial 8.8 (L) 13.5 - 17.5 g/dL POCT Anion Gap, Arterial 15 10 - 25 mmo/L Patient Temperature 37.0 degrees Celsius FiO2 80 % Coox Panel, Arterial Unsolicited Result Value Ref Range POCT Hemoglobin, Arterial 8.8 (L) 13.5 - 17.5 g/dL POCT Oxy Hemoglobin, Arterial 97.5 94.0 - 98.0 % POCT Carboxyhemoglobin, Arterial 1.5 % POCT Methemoglobin, Arterial 0.1 0.0 - 1.5 % POCT Deoxy Hemoglobin, Arterial 0.8 0.0 - 5.0 % Blood Gas Arterial Full Panel Unsolicited Result Value Ref Range POCT pH, Arterial 7.36 (L) 7.38 - 7.42 pH POCT pCO2, Arterial 45 (H) 38 - 42 mm Hg POCT pO2, Arterial 350 (H) 85 - 95 mm Hg POCT SO2, Arterial 100 94 - 100 % POCT Oxy Hemoglobin, Arterial 97.8 94.0 - 98.0 % POCT Hematocrit Calculated, Arterial 26.0 (L) 41.0 - 52.0 % POCT Sodium, Arterial 137 136 - 145 mmol/L POCT Potassium, Arterial 4.8 3.5 - 5.3 mmol/L POCT Chloride, Arterial 104 98 - 107 mmol/L POCT Ionized Calcium, Arterial 1.09 (L) 1.10 - 1.33 mmol/L POCT Glucose, Arterial 218 (H) 74 - 99 mg/dL POCT Lactate, Arterial 3.3 (H) 0.4 - 2.0 mmol/L POCT Base Excess, Arterial -0.2 -2.0 - 3.0 mmol/L POCT HCO3 Calculated, Arterial 25.4 22.0 - 26.0 mmol/L POCT Hemoglobin, Arterial 8.8 (L) 13.5 - 17.5 g/dL POCT Anion Gap, Arterial 12 10 - 25 mmo/L Patient Temperature 37.0 degrees Celsius FiO2 90 % Coox Panel, Arterial Unsolicited Result Value Ref Range POCT Hemoglobin, Arterial 8.8 (L) 13.5 - 17.5 g/dL POCT Oxy Hemoglobin, Arterial 97.8 94.0 - 98.0 % POCT Carboxyhemoglobin, Arterial 1.6 % POCT Methemoglobin, Arterial 0.0 0.0 - 1.5 % POCT Deoxy Hemoglobin, Arterial 0.5 0.0 - 5.0 % Blood Gas Arterial Full Panel Unsolicited Result Value Ref Range POCT pH, Arterial 7.39 7.38 - 7.42 pH POCT pCO2, Arterial 37 (L) 38 - 42 mm Hg POCT pO2, Arterial 112 (H) 85 - 95 mm Hg POCT SO2, Arterial 99 94 - 100 % POCT Oxy Hemoglobin, Arterial 97.2 94.0 - 98.0 % POCT Hematocrit Calculated, Arterial 25.0 (L) 41.0 - 52.0 % POCT Sodium, Arterial 136 136 - 145 mmol/L POCT Potassium, Arterial 4.1 3.5 - 5.3 mmol/L POCT Chloride, Arterial 105 98 - 107 mmol/L POCT Ionized Calcium, Arterial 1.41 (H) 1.10 - 1.33 mmol/L POCT Glucose, Arterial 185 (H) 74 - 99 mg/dL POCT Lactate, Arterial 3.8 (H) 0.4 - 2.0 mmol/L POCT Base Excess, Arterial -2.3 (L) -2.0 - 3.0 mmol/L POCT HCO3 Calculated, Arterial 22.4 22.0 - 26.0 mmol/L POCT Hemoglobin, Arterial 8.4 (L) 13.5 - 17.5 g/dL POCT Anion Gap, Arterial 13 10 - 25 mmo/L Patient Temperature 37.0 degrees Celsius FiO2 100 % Coox Panel, Arterial Unsolicited Result Value Ref Range POCT Hemoglobin, Arterial 8.4 (L) 13.5 - 17.5 g/dL POCT Oxy Hemoglobin, Arterial 97.2 94.0 - 98.0 % POCT Carboxyhemoglobin, Arterial 1.8 % POCT Methemoglobin, Arterial 0.0 0.0 - 1.5 % POCT Deoxy Hemoglobin, Arterial 1.1 0.0 - 5.0 % Platelet Count Result Value Ref Range Platelets 130 (L) 150 - 450 x10*3/uL Cardiology Tests Echo: Transthoracic Echo (TTE) Complete 06/21/2023 PHYSICIAN INTERPRETATION: Left Ventricle: Left ventricular systolic function is normal, with an estimated ejection fraction of 60%. There are no regional wall motion abnormalities. The left ventricular cavity size is normal. Abnormal (paradoxical) septal motion, consistent with left bundle branch block. Spectral Doppler shows an impaired relaxation pattern of left ventricular diastolic filling. Left Atrium: The left atrium is normal in size. A bubble study using agitated saline was performed.Bubble study is negative. Right Ventricle: The right ventricle is normal in size. There is normal right ventricular global systolic function. Right Atrium: The right atrium is normal in size. Aortic Valve: The aortic valve is trileaflet. There is no evidence of aortic valve regurgitation. The peak instantaneous gradient of the aortic valve is 12.7 mmHg. The mean gradient of the aortic valve is 7.0 mmHg. Mitral Valve: The mitral valve is normal in structure. There is no evidence of mitral valve regurgitation. Tricuspid Valve: The tricuspid valve is structurally normal. There is trace tricuspid regurgitation. Pulmonic Valve: The pulmonic valve is not well visualized. There is no indication of pulmonic valveregurgitation. Pericardium: There is no pericardial effusion noted. Aorta: The aortic root is normal. CONCLUSIONS: 1. Left ventricular systolic function is normal with a 60% estimated ejection fraction. 2. Abnormal septal motion consistent with left bundle branch block. 3. Spectral Doppler shows an impaired relaxation pattern of left ventricular diastolic filling. Ejection Fractions: EF Date/Time Value Ref Range Status 06/21/2023 12:55 PM 66 Cath: Cardiac catheterization - coronary 07/29/2023 Coronary Angiography: The coronary circulation is right dominant. Left Main Coronary Artery: The left main coronary artery is a normal caliber vessel. The left main arises normally from the left coronary sinus of Valsalva and bifurcates into the LAD and circumflex coronary arteries. The leftmain coronary artery showed atherosclerotic disease and calcification. The distal left main coronary artery showed 60% stenosis. This lesion was calcified. Left Anterior Descending Coronary Artery Distribution: The left anterior descending coronary artery is a normal caliber vessel. The LAD arises normally from the left main coronary artery. The LAD demonstrated a normal vessel, atherosclerotic disease and calcification. The proximal left anterior descending coronary artery showed 70% stenosis. This lesion was diffuse. The 1st diagonal branch is a normal caliber vessel. The 1st diagonal branch showed nosignificant disease or stenosis greater than 30%. Circumflex Coronary Artery Distribution: The circumflex coronary artery is a normal caliber vessel. The circumflex arises normally from the left main coronary artery and terminates in the AV groove. The circumflex revealed atherosclerotic disease and calcification. The mid circumflex coronary artery showed 99% stenosis. This lesion was calcified. The 1st obtuse marginal branch is a small caliber vessel. The 1st obtuse marginal branch showed atherosclerotic disease. The ostial 1st obtuse marginal branch showed 99% stenosis. This lesionwas diffuse. The 2nd obtuse marginal branch is a small caliber vessel. The 2nd obtuse marginal branch demonstrated atherosclerotic disease. The ostial 2nd obtuse marginal branch demonstrated 99% stenosis. This lesion was diffuse. Right Coronary Artery Distribution: The right coronary artery is a normal caliber vessel. The RCA arises normally from the right sinus of Valsalva. The RCA showed no significant disease or stenosis greater than 30%. Patent stent to ostial RCA. The right posterolateral branch is a normal caliber vessel. The right posterolateral branchshowed no significant disease or stenosis greater than 30%. The right posterior descending artery is a small caliber vessel. The right posterior descending artery showed atherosclerotic disease. The proximal to mid right posterior descending artery revealed 70% stenosis. This lesion was diffuse. Coronary Lesion Summary: Vessel Stenosis Vessel Segment Left Main 60% stenosis distal LAD 70% stenosis proximal Circumflex 99% stenosis mid OM 1 99% stenosis ostial OM 2 99% stenosis ostial RPDA 70% stenosis proximal to mid Stress Test: Nuclear Stress Test 05/31/2023 FINDINGS: Small fixed perfusion defect in the basal lateral wall associated decreased wall motion. The left ventricle is normal in size. Gated images demonstrate decreased LV wall motion in the basal lateral wall with an LV EF estimated at 63%. Attenuation correction CT images demonstrate no gross anatomic abnormalities. IMPRESSION: 1. 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 2. The left ventricle is normal in size. 3. Decreased LV wall motion in the basal lateral wall with an LV EF estimated at 63%. Daily Event 09/13/23: Patient arrived to the ICU in critically ill but stable condition. Intubated & sedated, s/p On-pump CABG x4. - Vital Signs: HR 80, BP 112/88, SpO2 100% - Hemodynamics: CVP 11, CO 5.1, CI2.5 , SVR 1854 - Ventilator Settings: PRVC-AC / FiO2 / PEEP / RR - Pump time: 72 minutes Intake & Output: - Initial R Pleural Chest Tube: 40mL - Initial L Pleural Chest Tube: 30mL - Initial Mediastinal Chest Tube: 50mL Assessment & Plan Multivessel Coronary Artery Disease - S/p CABG x 3 on 09/13/[address] Jose Carlos Malagon (TAI-LAD, RA-OM1, SVG-OM2, SVG-PDA) - Continue on ASA 81mg and Atorvastatin 40mg - Holding beta-mila in initial post op period - Maintain MS/pl chest tubes to -20cm H20 continuous suction - Daily CXR while chest tube intact Radial Grafting - S/p radial harvest site - Proritize prevention of HTN Mediastinal Incision - Remove post-op dressing on POD #2 - Dressing C/D/I Acute Post-Op Pain - As expected - Multimodal pain control with scheduled magnesium oxide 400mg QD, gabapentin 100mg TID, and acetaminophen 650 q6h (PRN oxycodone & fentanyl) - Bowel regimen while taking narcotics Risk for Post-Op Arrhythmia - Ventricular wires placed - Discontinue V-wires prior to DC - Telemetry until discharged Acute Postoperative Respiratory Insufficiency - As expected following CABG with post-op atelectasis - Currently maintained on mechanical ventilator - Aggressive coughing and deep breathing exercises. - Incentive spirometry - Out of bed, early and aggressive mobilization with assistance - Oxygen as needed, wean to keep saturation above 92% - ICU vp compliance/internship consulted - Albuterol nebulizers as needed Risk for Fluid Volume Overload - Pre-Op Weight: 94.4kg - Strict I& Os and daily weights - Monitor CVP and hemodynamics closely Acute Post-Op Blood-Loss Anemia - Pre-Op H/H: 13.2/38.7 - Monitor h/h in the initial post op period - Monitor chest tubes for post op hemorrhage - Multivitamin/iron tablet - Daily CBC while in hospital Post-Op Leukocytosis - Pre-Op WBC: 8.5 - Reactive to surgery - Post-op ATB Q12 for 48hrs - Daily cbc while in hospital Essential HTN - Home Medications: Lisinopril 5mg, Isosorbide mononitrate 30mg, metoprolol succinate 100mg every day - Hold in the immediate post-op period Type 2 DM - Home Medications: Glipizide 5mg, metformin XR 500mg BID - HbA1c: 6.4 - Goal for BG <150 in the post-operative period - SSI Dyslipidemia - Home Medications: Atorvastatin 40mg - Continue on statin therapy as above Hypothyroidism - Home Medications: Levothyroxine 175mcg - Resumed Dyslipidemia - Home Medications: Tamsulosin 0.4mg, Finasteride 5mg - Resumed Risk for Electrolyte Disturbances - Optimize electrolytes per [facility] protocol Bowel Regimen - Senna-S BID - PRN suppositories and miralax Prophylaxis - GI: PPI - DVT: Faisal-Hose & starting enoxaparin on POD #1 - PT/OT eval-once clinically stable Disposition - CVICU Patient seen and plan discussed with Dr. Jose Carlos Malagon. Mary Garcia APRN-DISPENSING LEAD * Jose Carlos Malagon MD - 09/13/2023 7:00 AM EST H&P reviewed. The patient was examined and there are no changes to the H&P. Source Note - Jose Carlos Malagon MD - 08/24/2023 2:00 PM EST Subjective Patient ID: Ruth Mackey is a 77 y.o. male. HPI I had the pleasure of meeting today with Mr. Blanco and his family. He was accompanied by his and son. Mr. Richardson is a 77 years old patient who was found to have prognostic significant leftmain and triple-vessel coronary artery disease. He has class II CCS angina and class II NYHA I symptoms. His comorbidities include diabetes on drugs, previous stenting, dyslipidemia, and hypertension, andstrong family history. He never smoked or had TIA/stroke He had a back surgery for degenerative disease. He has some limitations on his walking due to peripheral neuropathy. He does all his ADLs. His medication were reviewed His ejection fraction is preserved and there is no valvular abnormalities. Coronary angiogram showed reasonable targets. LAD, OM and PDA. OM 2 is questionable Objective Physical Exam Well-looking 77 years old patient. No distress. S1-S2 present no murmur Good airway entry bilaterally No peripheral varicosities. Tyler's test was deferred Assessment/Plan Diagnoses and all orders for this visit: 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 [place] heart with stable angina pectoris ([facility]) - Case Request Operating Room: Creation Bypass Graft Coronary Artery with Arteriovenous Grafts I had an extensive discussion with the patient and family regarding the natural history of left main and triple-vessel coronary artery disease. Also I explained to them the benefits of surgical revascularization including increasing lifespan and keeping quality of life. We went in details on the risks involved which include not surviving the operation, stroke, myocardial damage, intrathoracic nerve damage, kidney dysfunction, lung dysfunction, bleeding, sternal wound healing issues, to name a few. His operative mortality is below 2% and he is overall a low risk candidate. I believe he will benefit from surgical revascularization. He does have reasonable targets. The plan is to perform a coronary artery bypass grafting x 3 on pump. The targets are LAD, OM1, +/- OM 2, and PDA. I am planning to use the TAI and veins. The patient consented for the procedure. PAT was arranged, and a tentative date of September 13 was given. Further tests will be required including a noncontrast chest CT, carotid duplex and vein mapping which will be done during the PAT visit. Thank you very much for referring this nice gentleman to our care documented in this [facility] Work Phone: [phone] 335-713601-09-2024 History of Present illness Narrative* Jose Carlos Malagon MD - 08/24/2023 2:00 PM EST Subjective Patient ID: Ruth Mackey is a 77 y.o. male. HPI I had the pleasure of meeting today with Mr. Blanco and his family. He was accompanied by his and son. Mr. Richardson is a 77 years old patient who was found to have prognostic significant leftmain and triple-vessel coronary artery disease. He has class II CCS angina and class II NYHA I symptoms. His comorbidities include diabetes on drugs, previous stenting, dyslipidemia, and hypertension, andstrong family history. He never smoked or had TIA/stroke He had a back surgery for degenerative disease. He has some limitations on his walking due to peripheral neuropathy. He does all his ADLs. His medication were reviewed His ejection fraction is preserved and there is no valvular abnormalities. Coronary angiogram showed reasonable targets. LAD, OM and PDA. OM 2 is questionable Objective Physical Exam Well-looking 77 years old patient. No distress. S1-S2 present no murmur Good airway entry bilaterally No peripheral varicosities. Tyler's test was deferred Assessment/Plan Diagnoses and all orders for this visit: 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 [place] heart with stable angina pectoris ([facility]) - Case Request Operating Room: Creation Bypass Graft Coronary Artery with Arteriovenous Grafts I had an extensive discussion with the patient and family regarding the natural history of left main and triple-vessel coronary artery disease. Also I explained to them the benefits of surgical revascularization including increasing lifespan and keeping quality of life. We went in details on the risks involved which include not surviving the operation, stroke, myocardial damage, intrathoracic nerve damage, kidney dysfunction, lung dysfunction, bleeding, sternal wound healing issues, to name a few. His operative mortality is below 2% and he is overall a low risk candidate. I believe he will benefit from surgical revascularization. He does have reasonable targets. The plan is to perform a coronary artery bypass grafting x 3 on pump. The targets are LAD, OM1, +/- OM 2, and PDA. I am planning to use the TAI and veins. The patient consented for the procedure. PAT was arranged, and a tentative date of September 13 was given. Further tests will be required including a noncontrast chest CT, carotid duplex and vein mapping which will be done during the PAT visit. Thank you very much for referring this nice gentleman to our care documented in this [facility] Work Phone: [phone] 460-416912-20-2023 History of Present illness Narrative* Surekha Mccarty MA - 08/04/2023 9:20 AM EST Subjective Patient ID: Ruth Mackey is a 77 y.o. male who presents for Establishing Primary Care. HPI Review of Systems Objective There were no vitals taken for this visit. Physical Exam Assessment/Plan * Zahra Sanchez MD - 08/04/2023 9:20 AM EST Subjective Ruth Mackey is a 77 y.o. male who presents for No chief complaint on file.. Here to get established, was a patient of Dr Mendenhall. He has h/o HTN, high chol, CAD, s/p stents 2018, ischemic heart disease (Dr Garcia), DM, ETHAN on CPAP, hypothyroidism. He recently had heart cathand has some blockage and will be seeing a heart surgeon for consideration of bypass surgery. He states that overall he feels pretty good. [facility]. He has a history of benign thyroid nodule as well. He also has history of kidney stones about 5-6 years ago. Follows with urology (Dr Patel) yearly for that. He has h/o back surgery 2019. He states that he is doing well since then. Objective Visit Vitals BP 95/58 (BP Location: Left arm, Patient Position: Sitting, BP Cuff Size: Adult) Pulse 90 Physical Exam Vitals reviewed. Constitutional: General: He is not in acute distress. Cardiovascular: Rate and Rhythm: Normal rate and regular rhythm. Heart sounds: No murmur heard. Pulmonary: Effort: Pulmonary effort is normal. No respiratory distress. Breath sounds: Normal breath sounds. Skin: General: Skin is warm and dry. Neurological: General: No focal deficit present. Mental Status: He is alert. Mental status is at baseline. Assessment/Plan Problem List Items Addressed This Visit Cardiomyopathy (CMS/HCC) CAD S/P percutaneous coronary angioplasty Relevant Orders CBC and Auto Differential Comprehensive Metabolic Panel Hemoglobin A1C Lipid Panel TSH with reflex to Free T4 if abnormal Vitamin B12 Follow Up In Primary Care - Medicare Annual Diabetes mellitus (CMS/HCC) - Primary Relevant Orders CBC and Auto Differential Comprehensive Metabolic Panel Hemoglobin A1C Lipid Panel TSH with reflex to Free T4 if abnormal Vitamin B12 Follow Up In Primary Care - Medicare Annual HTN (hypertension), benign Relevant Orders CBC and Auto Differential Comprehensive Metabolic Panel Hemoglobin A1C Lipid Panel TSH with reflex to Free T4 if abnormal Vitamin B12 Follow Up In Primary Care - Medicare Annual Hyperlipidemia Relevant Orders CBC and Auto Differential Comprehensive Metabolic Panel Hemoglobin A1C Lipid Panel TSH with reflex to Free T4 if abnormal Vitamin B12 Follow Up In Primary Care - Medicare Annual Hypothyroidism Relevant Orders CBC and Auto Differential Comprehensive Metabolic Panel Hemoglobin A1C Lipid Panel TSH with reflex to Free T4 if abnormal Vitamin B12 Follow Up In Primary Care - Medicare Annual Stage 3 chronic kidney disease (CMS/HCC) Relevant Orders CBC and Auto Differential Comprehensive Metabolic Panel Hemoglobin A1C Lipid Panel TSH with reflex to Free T4 if abnormal Vitamin B12 Follow Up In Primary Care - Medicare Annual Zahra Sanchez MD documented in this [facility] Work Phone: [phone]) 847-750412-20-2023 Instructions* Patient Instructions* Zahra Sanchez MD - 08/04/2023 9:20 AM EST Continue current medications. Follow up with specialists as scheduled. Follow up in 3 months, sooner if needed. documented in this [facility] Work Phone: [phone] 692-285212-19-2023 History of Present illness Narrative* Broderick Garcia MD - 08/03/2023 3:00 PM EST Chief Complaint Patient presents with Post-Cath HPI: I was requested by Dr. Maya to evaluate this patient in consultation for cardiac assessment. Patient 77-year-old non-smoker diabetic male with prior medical history significant for Coronary Artery Disease status post ostial RCA stent (2017), hypertension, hyperlipidemia, type 2 diabetes mellitus, severe ETHAN on CPAP, lumbosacral spondylosis, neurogenic claudication due to chronic lumbar spinal stenosis, hypothyroidism. He is currently feeling fine and is very active, however he endorses chest pain and some shortness of breath every time he exercises too much. His chest pain is pressure in nature, in the upper chest, gets worse with exercises, improves after a few minutes after resting. He denies palpitations, leg edema, lightheadedness, headaches, fever, chills, orthopnea, paroxysmal nocturnal dyspnea or syncope. The EKG today shows normal sinus rhythm with no signs of ACS. He is still complaining of chest pain and shortness of breath for extra-habitual exertion. He states that it is relief with resting and nitroglycerin. Patient underwent nuclear stress test on 05/31/2023, showin. 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 2. The left ventricle is normal in size. 3. Decreased LV wall motion in the basal lateral wall with an LV EF estimated at 63%. Past Medical History Past Medical History: Diagnosis Date Diabetes mellitus (CMS/HCC) Hyperlipidemia Hypertension Past Surgical History Past Surgical History: Procedure Laterality Date CARDIAC CATHETERIZATION N/A 07/29/2023 Procedure: Left Heart Cath; Surgeon: Broderick Garcia MD; Location: [facility] Cardiac Public Health Clinical Nurse Specialist;Service: Cardiovascular; Laterality: N/A; OTHER SURGICAL HISTORY 06/01/2019 Kidney surgery OTHER SURGICAL HISTORY 06/01/2019 Cardiac catheterization OTHER SURGICAL HISTORY 06/01/2019 Colonoscopy OTHER SURGICAL HISTORY 06/01/2019 Epidural steroid injection OTHER SURGICAL HISTORY 06/01/2019 Epidural steroid injection OTHER SURGICAL HISTORY 06/01/2019 Epidural steroid injection OTHER SURGICAL HISTORY 06/01/2019 Epidural steroid injection OTHER SURGICAL HISTORY 06/01/2019 Epidural steroid injection OTHER SURGICAL HISTORY 06/01/2019 Intra-articular corticosteroid injection OTHER SURGICAL HISTORY 06/01/2019 Intra-articular corticosteroid injection OTHER SURGICAL HISTORY 06/01/2019 Esophagogastroduodenoscopy OTHER SURGICAL HISTORY 06/01/2019 Epidural steroid injection OTHER SURGICAL HISTORY 06/27/2019 Thyroid biopsy Past Family History Family History Problem Relation Name Age of Onset Diabetes Mother Heart disease Mother Heart attack Mother Cancer Father Diabetes Father Liver cancer Sister Cancer Brother Alcohol abuse Brother Allergy History No Known Allergies Past Social History Social History Socioeconomic History Marital status: Spouse name: None Number of children: None Years of education: None Highest education level: None Occupational History None Tobacco Use Smoking status: Never Passive exposure: Never Smokeless tobacco: Never Substance and Sexual Activity Alcohol use: Not Currently Drug use: Never Sexual activity: None Other Topics Concern None Social History Narrative None Social Determinants of Health Financial Resource Strain: Not on file Food Insecurity: Not on file Transportation Needs: Not on file Physical Activity: Not on file Stress: Not on file Social Connections: Not on file Intimate Partner Violence: Not on file Housing Stability: Not on file Social History Tobacco Use Smoking Status Never Passive exposure: Never Smokeless Tobacco Never Review of Systems: A total of 12 systems have been reviewed and are negative except for the aforementioned findings described in HPI. Objective Data: Last Recorded Vitals: Vitals: 08/03/23 1502 BP: 108/54 Pulse: 70 SpO2: 96% Weight: 91.3 kg (201 lb 4.8 oz) Height: 1.702 m (5' 7) Last Labs: CBC - 07/19/2023: 1:17 PM 7.1 12.9 231 40.0 CMP - 07/19/2023: 1:17 PM 9.8 _ _ --- _ _ _ _ _ PTT - No results in last year. _ _ _ No results found for: TROPHS, BNP, HGBA1C, LDLCALC, VLDL Patient Medications: Outpatient Encounter Medications as of 08/03/2023 Medication Sig Dispense Refill aspirin 81 mg EC tablet Take 1 tablet (81 mg) by mouth once daily. atorvastatin (Lipitor) 40 mg tablet Take 1 tablet (40 mg) by mouth once daily at bedtime. cholecalciferol (Vitamin D-3) 50 MCG (2000 UT) tablet Take 1 tablet (2,000 Units) by mouth 2 times a day. clopidogrel (Plavix) 75 mg tablet Take 1 tablet (75 mg) by mouth once daily. cyanocobalamin (Vitamin B-12) 1,000 mcg tablet Take 1 tablet (1,000 mcg) by mouth once daily. finasteride (Proscar) 5 mg tablet Take 1 tablet (5 mg) by mouth once daily. glipiZIDE (Glucotrol) 5 mg tablet Take 1 tablet (5 mg) by mouth 2 times a day. isosorbide mononitrate ER (Imdur) 30 mg 24 hr tablet Take 1 tablet (30 mg) by mouth once daily. lisinopril 5 mg tablet Take 1 tablet (5 mg) by mouth once daily. magnesium oxide (Mag-Ox) 420 mg tablet Take 1 tablet (420 mg) by mouth 3 times a day. metFORMIN XR 500 mg 24 hr tablet 1 tablet (500 mg) 2 times a day. metoprolol succinate XL (Toprol-XL) 100 mg 24 hr tablet Take 1 tablet (100 mg) by mouth once daily. nitroglycerin (Nitrostat) 0.[address] 1 tablet (0.4 mg) under the tongue every 5 minutesif needed for chest pain. TAKE DIRECTED. 90 tablet 3 Synthroid 175 mcg tablet Take 1 tablet (175 mcg) by mouth 1 (one) time per week. tamsulosin (Flomax) 0.4 mg 24 hr capsule Take 1 capsule (0.4 mg) by mouth once daily. No facility-administered encounter medications on file as of 08/03/2023. Physical Exam: General: alert, oriented and in no acute distress HEENT: NC/AT; EOMI; PERRLA, external ear is normal Neck: supple; trachea midline; no masses; no JVD Chest: clear breath sounds bilaterally; no wheezing Cardio: regular rhythm, S1S2 normal, no murmurs Abdomen: Soft, non-tender, non-distension, no organomegaly Extremities: no clubbing/cyanosis/edema Neuro: Grossly intact Psychiatric: Normal mood and affect Past Cardiology Results (Last 3 Years): EKG: ECG 12 lead 07/29/2023 Echo: Echo Results: Transthoracic Echo (TTE) Complete 06/21/2023 [place] [id number], TRANSTHORACIC ECHOCARDIOGRAM REPORT Patient Name: RUTH MACKEY Reading Physician: [id number] Sam Ugalde MD Study Date: 06/21/2023 Ordering Provider: [id number] BRODERICK MONIKKaylee GARCIA MRN/PID: [id number] Fellow: Nurse: Yesi Colby RN Date of /Age: 1 1945 / 77 years Room Attendants: Alvarado Rose RDCS Gender: M Additional Staff: Height: 172.72 cm Admit Date: Weight: 88.45 kg Admission Status: Outpatient BSA: 2.02 m2 Department Location: [facility] Echo Lab Blood Pressure: 123 /71 mmHg Study Type: TRANSTHORACIC ECHO (TTE) COMPLETE Diagnosis/ICD: Chronic ischemic heart disease, unspecified-I25.9 CPT Codes: Echo Complete w Full Doppler-[id number] Study Detail: The following Echo studies were performed: 2D, Doppler, M-Mode and color flow. Definity used as a contrast agent for endocardial border definition and agitated saline used as a contrast agent for intraseptal flow evaluation. Total contrast used for this procedure was 2.00cc mL via IV push. PHYSICIAN INTERPRETATION: Left Ventricle: Left ventricular systolic function is normal, with an estimated ejection fraction of 60%. There are no regional wall motion abnormalities. The left ventricular cavity size is normal. Abnormal (paradoxical) septal motion, consistent with left bundle branch block. Spectral Doppler shows an impaired relaxation pattern of left ventricular diastolic filling. Left Atrium: The left atrium is normal in size. A bubble study using agitated saline was performed.Bubble study is negative. Right Ventricle: The right ventricle is normal in size. There is normal right ventricular global systolic function. Right Atrium: The right atrium is normal in size. Aortic Valve: The aortic valve is trileaflet. There is no evidence of aortic valve regurgitation. The peak instantaneous gradient of the aortic valve is 12.7 mmHg. The mean gradient of the aortic valve is 7.0 mmHg. Mitral Valve: The mitral valve is normal in structure. There is no evidence of mitral valve regurgitation. Tricuspid Valve: The tricuspid valve is structurally normal. There is trace tricuspid regurgitation. Pulmonic Valve: The pulmonic valve is not well visualized. There is no indication of pulmonic valveregurgitation. Pericardium: There is no pericardial effusion noted. Aorta: The aortic root is normal. CONCLUSIONS: 1. Left ventricular systolic function is normal with a 60% estimated ejection fraction. 2. Abnormal septal motion consistent with left bundle branch block. 3. Spectral Doppler shows an impaired relaxation pattern of left ventricular diastolic filling. QUANTITATIVE DATA SUMMARY: 2D MEASUREMENTS: Normal Ranges: Ao Root d: 3.10 cm (2.0-3.7cm) LAs: 3.10 cm (2.7-4.0cm) IVSd: 0.99 cm (0.6-1.1cm) LVPWd: 1.08 cm (0.6-1.1cm) LVIDd: 4.17 cm (3.9-5.9cm) LVIDs: 2.99 cm LV Mass Index: 70.4 g/m2 LV % FS 28.3 % LA VOLUME: Normal Ranges: LA Vol A4C: 28.3 ml (22+/-6mL/m2) LA Vol A2C: 39.3 ml LA Vol BP: 36.8 ml LA Vol Index A4C: 14.0ml/m2 LA Vol Index A2C: 19.5 ml/m2 LA Vol Index BP: 18.2 ml/m2 LA Area A4C: 12.6 cm2 LA Area A2C: 16.4 cm2 LA Major Fate A4C: 4.8 cm LA Major Fate A2C: 5.8 cm LA Volume Index: 13.1 ml/m2 LA Vol A4C: 26.5 ml LA Vol A2C: 39.2 ml LV SYSTOLIC FUNCTION BY 2D PLANIMETRY (MOD): Normal Ranges: EF-A4C View: 59.4 % (>=55%) EF-A2C View: 72.2 % EF-Biplane: 66.1 % LV DIASTOLIC FUNCTION: Normal Ranges: MV Peak E: 0.59 m/s (0.7-1.2 m/s) MV Peak A: 0.92 m/s (0.42-0.7 m/s) E/A Ratio: 0.64 (1.0-2.2) MV lateral e' 0.10 m/s MV medial e' 0.06 m/s MITRAL VALVE: Normal Ranges: MV DT: 268 msec (150-240msec) AORTIC VALVE: Normal Ranges: AoV Vmax: 1.78 m/s (<=1.7m/s) AoV Peak P.7 mmHg (<20mmHg) AoV Mean P.0 mmHg (1.7-11.5mmHg) LVOT Max Maddie: 1.06 m/s (<=1.1m/s) AoV VTI: 33.40 cm (18-25cm) LVOT VTI: 21.80 cm LVOT Diameter: 1.90 cm (1.8-2.4cm) AoV Area, VTI: 1.85 cm2 (2.5-5.5cm2) AoV Area,Vmax: 1.69 cm2 (2.5-4.5cm2) AoV Dimensionless Index: 0.65 RIGHT VENTRICLE: RV Basal 4.92 cm RV Mid 3.59 cm RV Major 8.6 cm TAPSE: 23.3 mm RV s' 0.11 m/s TRICUSPID VALVE/RVSP: Normal Ranges: Peak TR Velocity: 2.76 m/s RV Syst Pressure: 33.5 mmHg (< 30mmHg) [id number] Sam Ugalde MD Electronically signed on 06/21/2023 at 1:43:14 PM Final Cath: Cardiac catheterization - coronary 07/29/2023 CV NCDR CATHPCI V5 COLLECTION FORM Stress Test: Nuclear Stress Test 05/31/2023 Cardiac Imaging: No results found for this or any previous visit from the past 1095 days. Documentation reviewed: Records from referring physician, Heart catheterization 01/31/2018 Tubular calcified 85% ostial lesion in RCA. This lesion was stented with a drug- eluting stent ( 5 x12 resolute adiel stent) Diffuse luminal irregularities 20% proximal lesion in RCA Discrete thrombus 100% mid lesion and circumflex Radiology results: ECHO, Interpretation: 1. Quality of the study was fair. 2. LV size, LV wall thickness, and LV ejection fraction is normal. LVEF is 60 to 65%. Regional function is normal. LV diastolic function appears normal. 3. RV size and systolic function is normal. 4. Biatrial size is normal. 5. Mitral valve is structurally normal with trace MR. No MS. 6. Aortic valve is tricuspid. No AI or . 7. Tricuspid valve structure is normal. Trace TR. RVSP is calculated to be about 22 mmHg. 8. Pulmonary valve is not well visualized. Function appears normal. 9. Pericardium appears normal. No pericardial effusion. 10. Aorta appears normal. 11. Aortic root measures 3.5 cm. CONCLUSION: 1. LV and RV systolic function is normal. LVEF is 60 to 65%. 2. Otherwise normal study., 2014 stress Mr. Mackey exercised for 7 minutes 30 seconds of standard Can protocol, demonstrating a fair exercise tolerance and attaining a maximum heart rate of 134 beats/minute, which is 86% of his predicted maximum. [address] segment depression was noted at peak exercise, with rapid return to baseline early postexercise. IMPRESSION: Indeterminate stress electrocardiogram, secondary to left bundle branch block. Cardiolite results pending. 1. Small matched defects at the cardiac apex with hypokinetic wall motion suggestive of myocardial scar. 2. No evidence of stress-induced ischemia. 3. Left ventricular ejection fraction estimated at 59%. . Tubular 40% mid lesion and left main Diffuse luminal irregularities 25% proximal LAD [facility] (05/2023): 1. Right coronary artery system dominance. 2. Multivessel Coronary Artery Disease involving Left Main. 3. Distal LM 60% calcified lesion. 4. Prox LAD 70% calcified lesion. 5. Mid LCx, ostial 1st OM, sotial 2nd OM subocclusive 99% disease. 6. Patent stent to ostial RCA. 7. Prox-mid PDA 70% lesion (small vessel). Assessment/Plan In summary, Mr. Mackey is a 77-year-old non-smoker diabetic male with prior medical history significant for Coronary Artery Disease status post ostial RCA stent (2018), hypertension, hyperlipidemia, type 2 diabetes mellitus, severe ETHAN on CPAP, lumbosacral spondylosis, neurogenic claudication due to chronic lumbar spinal stenosis, hypothyroidism. He is currently feeling fine and is very active, however he endorses chest pain and some shortness of breath every time he exercises too much. His chest pain is pressure in nature, in the upper chest, gets worse with exercises, improves after a few minutes after resting. He denies palpitations, leg edema, lightheadedness, headaches, fever, chills, orthopnea, paroxysmal nocturnal dyspnea or syncope. The EKG today shows normal sinus rhythm with no signs of ACS. # Coronary Artery Disease status post ostial RCA stent / Stable Angina on exertion - Patient endorses chest pain and some shortness of breath every time he exercises too much. His chest pain is pressure in nature, in the upper chest, gets worse with exercises, improves after a few minutes after resting and with nitroglycerin. - The EKG shows normal sinus rhythm with no signs of ACS. - Patient underwent nuclear stress test on 05/31/2023, showin. 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 2. The left ventricle is normal in size. 3. Decreased LV wall motion in the basal lateral wall with an LV EF estimated at 63%. - [facility] (05/29/2023): 1. Right coronary artery system dominance. 2. Multivessel Coronary Artery Disease involving Left Main. 3. Distal LM 60% calcified lesion. 4. Prox LAD 70% calcified lesion. 5. Mid LCx, ostial 1st OM, sotial 2nd OM subocclusive 99% disease. 6. Patent stent to ostial RCA. 7. Prox-mid PDA 70% lesion (small vessel). - Keep current medications include aspirin 81 mg, atorvastatin 40 mg, Toprol 100 mg, isosorbide 60 mg daily. - Stop Clopidogrel. - Follow up with Cardiac Surgery team - Dr. Malagon. # Hypertension - Controlled BP - Keep Lisinopril 10mg daily, Metoprolol succinate 100mg daily # Type 2 diabetes mellitus - Controlled by PCP - Keep Glipizide 5mg daily # Hyperlipidemia - Controlled by PCP - Keep Atorvastatin 80mg daily. # Severe ETHAN - Keep CPAP # Hypothyroidism - Keep Levothyroxine 200mcg daily We have discussed the most common side effects of the prescribed medications, indications, drug interactions, risks, complications, and alternatives of medications/therapeutics were explained and discussed. The patient has been requested to monitor closely for any untoward side effects or complications of medications. The patient has been strongly advised to be compliant with the recommendations,all the questions and concerns have been addressed. The patient has been also instructed to call, to return sooner or to go to the emergency department if symptoms persist or get worsen. The patient voiced understanding and denies any further questions at this time. This note was transcribed using the [employer]ict[employer] system. There may be grammatical, punctuation,or verbiage errors that occur with voice recognition programs. Thank you, Dr. Maya, for allowing me to participate in the care of this patient. Please reach meout if you have any questions or if you need any clarifications regarding the patient's care. Broderick Garcia MD, PhD Cardiology documented in this [facility] Work Phone: [phone]) 956-529010-23-2023 History of Present illness Narrative* Broderick Garcia MD - 06/07/2023 1:15 PM EDT Chief Complaint RUTH MACKEY is being seen for a cardiovascular evaluation . chest pain. Coronary artery disease History of Present Illness I was requested by Dr. Maya to evaluate this patient in consultation for cardiac assessment. Patient 77-year-old non-smoker diabetic male with prior medical history significant for Coronary Artery Disease status post ostial RCA stent (2018), hypertension, hyperlipidemia, type 2 diabetes mellitus, severe ETHAN on CPAP, lumbosacral spondylosis, neurogenic claudication due to chronic lumbar spinal stenosis, hypothyroidism. He is currently feeling fine and is very active, however he endorses chest pain and some shortness of breath every time he exercises too much. His chest pain is pressure in nature, in the upper chest, gets worse with exercises, improves after a few minutes after resting. He denies palpitations, leg edema, lightheadedness, headaches, fever, chills, orthopnea, paroxysmal nocturnal dyspnea or syncope. The EKG today shows normal sinus rhythm with no signs of ACS. He is still complaining of chest pain and shortness of breath for extra-habitual exertion. He states that it is relief with resting and nitroglycerin. Patient underwent nuclear stress test on 05/31/2023, showin. 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 2. The left ventricle is normal in size. 3. Decreased LV wall motion in the basal lateral wall with an LV EF estimated at 63%. Active Problems Problems CAD S/P percutaneous coronary angioplasty (414.01,V45.82) (I25.10,Z98.61) Chronic lumbar radiculopathy (724.4) (M54.16) Degeneration of intervertebral disc at L5-S1 level (722.52) (M51.37) Degeneration of intervertebral disc of lumbosacral region (722.52) (M51.37) Diabetes (250.00) (E11.9) Displacement of lumbar disc with radiculopathy (722.10,724.4) (M51.16) HTN (hypertension), benign (401.1) (I10) Hyperlipidemia (272.4) (E78.5) Hypothyroidism (244.9) (E03.9) Irregular heart beat (427.9) (I49.9) Lumbosacral spondylosis (721.3) (M47.817) Neurogenic claudication due to lumbar spinal stenosis (724.03) (M48.062) Preoperative testing (V72.84) (Z01.818) Severe obstructive sleep apnea (327.23) (G47.33) Surgical History Problems History of Cardiac catheterization With stent placed History of Colonoscopy History of Epidural steroid injection Managed By: Kendall Salazar (Pain Medicine) L4-5 History of Epidural steroid injection Managed By: Kendall Salazar (Pain Medicine) L4-5 History of Epidural steroid injection Managed By: Kendall Salazar (Pain Medicine) L4-5 History of Epidural steroid injection Managed By: Kendall Salazar (Pain Medicine) L4-5 History of Epidural steroid injection Managed By: Kendall Salazar (Pain Medicine) R L4 TFESI History of Epidural steroid injection Managed By: Kendall Salazar (Pain Medicine) L4-5 History of Esophagogastroduodenoscopy History of Intra-articular corticosteroid injection Managed By: Kendall Salazar (Pain Medicine) R SIJ History of Intra-articular corticosteroid injection Managed By: Kendall Salazar (Pain Medicine) R SIJ History of Kidney surgery Kidney stone extraction History of Lower back surgery History of Thyroid biopsy Current Meds Medication Name Instruction Aspirin 81 81 MG Oral Tablet Delayed Release TAKE 1 TABLET DAILY. Atorvastatin Calcium 80 MG Oral Tablet TAKE 1 TABLET AT BEDTIME Calcium TABS Take 1 tablet twice daily glipiZIDE 5 MG Oral Tablet Take 1 tablet twice daily Isosorbide Mononitrate ER 60 MG Oral Tablet Extended Release 24 Hour TAKE ONE TABLET BY MOUTH EVERYMORNING Levothyroxine Sodium 200 MCG Oral Tablet TAKE 1 TABLET DAILY. Lisinopril 10 MG Oral Tablet TAKE 1 TABLET DAILY. Mag-Ox 400 TABS TAKE 1 TABLET TWICE DAILY. Metoprolol Succinate ER 100 MG Oral Tablet Extended Release 24 Hour TAKE 1 TABLET DAILY. Nitroglycerin 0.4 MG Sublingual Tablet Sublingual TAKE DIRECTED. Plavix 75 MG Oral Tablet TAKE 1 TABLET DAILY. Tamsulosin HCl - 0.4 MG Oral Capsule TAKE 1 CAPSULE Daily Unspecified Medication Finasteride 1 tabs po daily Unspecified Medication metformin 1 po bid Vitamin B-12 1000 MCG Oral Tablet Take 1 tablet twice daily Vitamin D 1000 UNIT TABS TAKE 1 TABLET DAILY. Allergies Medication No Known Drug Allergies Recorded By: Elmira Pack; 06/01/2019 8:53:44 AM Family History Mother Family history of cardiac disorder (V17.49) (Z82.49) Family history of diabetes mellitus (V18.0) (Z83.3) Family history of myocardial infarction (V17.3) (Z82.49) Father Family history of diabetes mellitus (V18.0) (Z83.3) Family history of malignant neoplasm (V16.9) (Z80.9) Sister Family history of liver cancer (V16.0) (Z80.0) Brother Family history of Alcohol abuse Family history of malignant neoplasm (V16.9) (Z80.9) Social History Problems Daily caffeine consumption 1-2 CUPS COFFEE 3 HOT TEAS Denies alcohol consumption (V49.89) (Z78.9) No illicit drug use Non-smoker (V49.89) (Z78.9) Review of Systems Constitutional: Denies any fever or chills Eyes: Denies any eye pain or blurry vision ENT: Denies any ear pain or hearing loss Cardiovascular: The heart rate is not slow, the heart rate is not fast Respiratory: Denies any asthma/wheezing Gastrointestinal: Denies any susi colored stools or fatty food intolerance Genitourinary: Denies any blood in the urine or pelvic pain Musculoskeletal: Denies any swelling in the joints or difficulty walking Skin: Denies any skin lumps or skin lesions Neurological: Denies any dizziness/tingling Vitals Vital Signs Recorded: [id number] 03:09PM Heart Rate 76 Systolic 104 Diastolic 60 Height 5 ft 7 in Weight 203 lb BMI Calculated 31.79 kg/m2 BSA Calculated 2.03 Tobacco Use b) No O2 Saturation 98 Physical Exam General: A&Ox3 HEENT: NC/AT; EOMI; PERRLA, external ear is normal Neck: supple; no JVD Chest: CTAB; no wheezing CVS: S1S2 normal, no murmurs Abdomen: Soft, NT/ND, no organomegaly Extremities: no clubbing/cyanosis/edema Neuro: Grossly intact Results/Data Documentation reviewed: Records from referring physician, Heart catheterization 01/31/2018 Tubular calcified 85% ostial lesion in RCA. This lesion was stented with a drug- eluting stent ( 5 x12 resolute adiel stent) Diffuse luminal irregularities 20% proximal lesion in RCA Discrete thrombus 100% mid lesion and circumflex Radiology results: ECHO, Interpretation: 1. Quality of the study was fair. 2. LV size, LV wall thickness, and LV ejection fraction is normal. LVEF is 60 to 65%. Regional function is normal. LV diastolic function appears normal. 3. RV size and systolic function is normal. 4. Biatrial size is normal. 5. Mitral valve is structurally normal with trace MR. No MS. 6. Aortic valve is tricuspid. No AI or . 7. Tricuspid valve structure is normal. Trace TR. RVSP is calculated to be about 22 mmHg. 8. Pulmonary valve is not well visualized. Function appears normal. 9. Pericardium appears normal. No pericardial effusion. 10. Aorta appears normal. 11. Aortic root measures 3.5 cm. CONCLUSION: 1. LV and RV systolic function is normal. LVEF is 60 to 65%. 2. Otherwise normal study., 2014 stress Mr. Mackey exercised for 7 minutes 30 seconds of standard Can protocol, demonstrating a fair exercise tolerance and attaining a maximum heart rate of 134 beats/minute, which is 86% of his predicted maximum. [address] segment depression was noted at peak exercise, with rapid return to baseline early postexercise. IMPRESSION: Indeterminate stress electrocardiogram, secondary to left bundle branch block. Cardiolite results pending. 1. Small matched defects at the cardiac apex with hypokinetic wall motion suggestive of myocardial scar. 2. No evidence of stress-induced ischemia. 3. Left ventricular ejection fraction estimated at 59%. . Tubular 40% mid lesion and left main Diffuse luminal irregularities 25% proximal LAD Impressions In summary, Mr. Mackey is a 77-year-old non-smoker diabetic male with prior medical history significant for Coronary Artery Disease status post ostial RCA stent (2018), hypertension, hyperlipidemia, type 2 diabetes mellitus, severe ETHAN on CPAP, lumbosacral spondylosis, neurogenic claudication due to chronic lumbar spinal stenosis, hypothyroidism. He is currently feeling fine and is very active, however he endorses chest pain and some shortness of breath every time he exercises too much. His chest pain is pressure in nature, in the upper chest, gets worse with exercises, improves after a few minutes after resting. He denies palpitations, leg edema, lightheadedness, headaches, fever, chills, orthopnea, paroxysmal nocturnal dyspnea or syncope. The EKG today shows normal sinus rhythm with no signs of ACS. # Coronary Artery Disease status post ostial RCA stent / Stable Angina on exertion - Patient endorses chest pain and some shortness of breath every time he exercises too much. His chest pain is pressure in nature, in the upper chest, gets worse with exercises, improves after a few minutes after resting and with nitroglycerin. - The EKG shows normal sinus rhythm with no signs of ACS. - Patient underwent nuclear stress test on 05/31/2023, showin. 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 2. The left ventricle is normal in size. 3. Decreased LV wall motion in the basal lateral wall with an LV EF estimated at 63%. - Will request echo and Left Heart Catheterization. - The natural history of atherosclerosis was discussed with the patient. The treatment options including GDMT, percutaneous intervention or surgical intervention were discussed with the patient. All the risks, benefits and alternative procedures were discussed. Complications of the procedure were also discussed, including but not limited to risk of bleeding, stroke, infarct, infection, urgent cardiac surgery or . All questions were answered and the informed consent was obtained. After aforementioned testing and consultation, Left Heart Catheterization with potential Percutaneous CoronaryIntervention would be a reasonable approach if the patient is candidate. - Keep current medications include aspirin 81 mg, clopidogrel 75mg daily, atorvastatin 40 mg, Toprol 100 mg, isosorbide 60 mg daily. - Follow up after tests. # Hypertension - Controlled BP - Keep Lisinopril 10mg daily, Metoprolol succinate 100mg daily # Type 2 diabetes mellitus - Controlled by PCP - Keep Glipizide 5mg daily # Hyperlipidemia - Controlled by PCP - Keep Atorvastatin 80mg daily. # Severe ETHAN - Keep CPAP # Hypothyroidism - Keep Levothyroxine 200mcg daily We have discussed the most common side effects of the prescribed medications, indications, drug interactions, risks, complications, and alternatives of medications/therapeutics were explained and discussed. The patient has been requested to monitor closely for any untoward side effects or complications of medications. The patient has been strongly advised to be compliant with the recommendations,all the questions and concerns have been addressed. The patient has been also instructed to call, to return sooner or to go to the emergency department if symptoms persist or get worsen. The patient voiced understanding and denies any further questions at this time. This note was transcribed using the [employer] system. There may be grammatical, punctuation,or verbiage errors that occur with voice recognition programs. Thank you, Dr. Maya, for allowing me to participate in the care of this patient. Please reach meout if you have any questions or if you need any clarifications regarding the patient's care. Broderick Garcia MD, PhD Cardiology documented in this [facility] Work Phone: [phone] History of Present illness Narrative* José Manuel Naylor MD - 03/11/2021 3:36 PM EDT Ruth A Key 75 y.o. 1945 male Reason for Consult: #1 anemia #2 history of adenomatous colon polyp #3 GERD HPI: 75-year-old male with history of hypertension hyperlipidemia diabetes mellitus type 2 hypothyroid is colon polyp and GERD was referred to me for GI work-up patient has history of colon polyp his lastcolonoscopy was in 2014. He is found to have anemia and has heartburn off and on denies any bright red blood per rectum or melena or abdominal pain or change in weight. No family history of any GI malignancy. Denies any dysphagia Past Medical History: Past Medical History: Diagnosis Date Anxiety Chest tightness Colon polyps 2009 Diabetes (HCC) Disease of thyroid gland MCFADDEN (dyspnea on exertion) Hiatal hernia 2014 Hyperlipidemia Hypertension Surgical History & Procedures: Past Surgical History: Procedure Laterality Date CARDIAC CATHETERIZATION CARDIAC CATHETERIZATION N/A 01/31/2018 Procedure: Left Heart Cath Possible PTCA/Stent; Surgeon: Eric Rios MD; [place] [facility] [place] [facility]; Service: Cardiovascular COLONOSCOPY 2009 polyp COLONOSCOPY 05/14/2015 ESOPHAGOGASTRODUODENOSCOPY 2014 kidney stone removal Social History: Social History Socioeconomic History Marital status: Spouse name: Not on file Number of children: Not on file Years of education: Not on file Highest education level: Not on file Occupational History Not on file Tobacco Use Smoking status: Never Smoker Smokeless tobacco: Never Used Vaping Use Vaping Use: Never used Substance and Sexual Activity Alcohol use: No Drug use: No Sexual activity: Not on file Other Topics Concern Not on file Social History Narrative Not on file Social Determinants of Health Financial Resource Strain: Difficulty of Paying Living Expenses: Food Insecurity: Worried About Running Out of Food in the Last Year: Ran Out of Food in the Last Year: Transportation Needs: Lack of Transportation (Medical): Lack of Transportation (Non-Medical): Physical Activity: Days of Exercise per Week: Minutes of Exercise per Session: Stress: Feeling of Stress : Social Connections: Frequency of Communication with Friends and Family: Frequency of Social Gatherings with Friends and Family: Attends Orthodox Services: Active Member of Clubs or Organizations: Attends Club or Organization Meetings: Marital Status: Current Medications: Current Outpatient Medications Medication Sig Dispense Refill aspirin 81 MG EC tablet Take 81 mg by mouth daily. atorvastatin (LIPITOR) 20 MG tablet Take 20 mg by mouth daily . cholecalciferol, vitamin D3, (VITAMIN D3) 1,000 unit capsule Take 1,000 Units by mouth daily. clopidogrel (PLAVIX) 75 mg tablet Take 1 (one) tablet (75 mg total) by mouth daily. 30 tablet 11 cyanocobalamin (vitamin B-12) 100 MCG tablet Take 100 mcg by mouth daily. glipiZIDE (GLUCOTROL) 5 MG tablet Take 5 mg by mouth 2 (two) times a day . isosorbide mononitrate (IMDUR) 60 MG 24 hr tablet levothyroxine (SYNTHROID, LEVOTHROID) 200 MCG tablet Take 200 mcg by mouth once daily. lisinopril (PRINIVIL,ZESTRIL) 20 MG tablet Take 1 (one) tablet (20 mg total) by mouth daily with lunch. 30 tablet 3 metoprolol succinate (TOPROL-XL) 100 MG 24 hr tablet Take 100 mg by mouth daily. nitroGLYCERIN (NITROSTAT) 0.[address] 1 (one) tablet (0.4 mg total) under the tongue every 5 (five) minutes as needed for chest pain , if no relief after 3rd dose call 911. 100 tablet 3 tamsulosin (FLOMAX) 0.4 mg capsule Take 0.4 mg by mouth daily. bisacodyL (DULCOLAX) 5 mg EC tablet As instructed . 4 tablet 0 polyethylene glycol (GoLYTELY) 236-22.74-6.74 -5.86 gram solution Take 4,000 mL by mouth once for 1dose . 4000 mL 0 No current facility-administered medications for this visit. Review of Systems Constitutional: Negative for appetite change and unexpected weight change. HENT: Negative for voice change. Respiratory: Negative for cough, choking and shortness of breath. Cardiovascular: Negative for chest pain and leg swelling. Gastrointestinal: Negative for abdominal pain, anal bleeding, blood in stool, constipation, diarrhea, nausea, rectal pain and vomiting. Genitourinary: Negative for hematuria. Musculoskeletal: Negative for arthralgias and joint swelling. Skin: Negative for pallor. Neurological: Negative for dizziness, tremors and weakness. Hematological: Negative for adenopathy. Does not bruise/bleed easily. Psychiatric/Behavioral: Negative for confusion. Physical Exam Constitutional: Appearance: Normal appearance. Eyes: Pupils: Pupils are equal, round, and reactive to light. Cardiovascular: Pulses: Normal pulses. Heart sounds: Normal heart sounds. Pulmonary: Breath sounds: Normal breath sounds. Abdominal: General: Bowel sounds are normal. Palpations: Abdomen is soft. There is no mass. Tenderness: There is no abdominal tenderness. Skin: Coloration: Skin is not jaundiced. Neurological: General: No focal deficit present. Mental Status: He is alert and oriented to person, place, and time. Psychiatric: Behavior: Behavior normal. No visits with results within 30 Day(s) from this visit. Latest known visit with results is: Admission on 01/31/2018, Discharged on 02/01/2018 Component Date Value Ref Range Status Glucose 01/31/2018 150* 65 - 99 mg/dL Final WBC 01/31/2018 5.95 4.50 - 11.00 K/mcL Final RBC 01/31/2018 3.50* 4.50 - 5.90 M/mcL Final Hemoglobin 01/31/2018 11.9* 13.5 - 17.5 g/dL Final Hematocrit 01/31/2018 34.1* 41.0 - 53.0 % Final MCV 01/31/2018 97.4 80.0 - 100.0 fL Final MCH 01/31/2018 34.0 26.0 - 34.0 pg Final MCHC 01/31/2018 34.9 31.0 - 37.0 g/dL Final Platelets 01/31/2018 185 150 - 400 K/mcL Final RDW - CV 01/31/2018 12.9 11.6 - 14.8 % Final MPV 01/31/2018 10.2 9.0 - 15.5 fL Final Nucleated RBC 01/31/2018 0.0 % Final Nucleated RBC Abs 01/31/2018 0.00 0.00 - 0.00 K/mcL Final Ventricular Rate 01/31/2018 77 BPM Final Atrial Rate 01/31/2018 77 BPM Final P-R Interval 01/31/2018 204 ms Final QRS Duration 01/31/2018 152 ms Final Q-T Interval 01/31/2018 408 ms Final QTC Calculation (Bezet) 01/31/2018 461 ms Final P Fate 01/31/2018 2 degrees Final R Fate 01/31/2018 -49 degrees Final T Fate 01/31/2018 89 degrees Final Glucose 01/31/2018 179* 65 - 99 mg/dL Final Cholesterol 02/01/2018 77* 100 - 199 mg/dL Final National Cholesterol Education Program Guidelines: Cholesterol Desirable: <200 mg/dL Borderline High: 200-239 mg/dL High: greater than or equal to 240 mg/dL Triglycerides 02/01/2018 121 30 - 150 mg/dL Final National Cholesterol Education Program Guidelines: Triglyceride Normal: <150 mg/dL Borderline High: 150-199 mg/dL High: 200-499 mg/dL Very High: greater than or equal to 500 mg/dL HDL 02/01/2018 33* 40 - 59 mg/dL Final National Cholesterol Education Program Guidelines: HDL Cholesterol Low: <40 mg/dL Near Optimal: 40-59 mg/dL High: greater than or equal to 60 mg/dL Chol/HDL Ratio 02/01/2018 2.3 ratio Final Males Cholesterol/HDL Ratio: Average risk: 5.0 1/2 average risk: 3.4 2 x average risk: 9.6 LDL Calculated 02/01/2018 20 10 - 130 mg/dL Final National Cholesterol Education Program Guidelines: LDL Cholesterol Optimal: <100 mg/dL Near Optimal/above Optimal: 100-129 mg/dL Borderline High: 130-159 mg/dL High: 160-189 mg/dL Very High: greater than or equal to 190 mg/dL Reference range change on 08/30/17 to reflect NCEP guidelines. Non HDL Cholesterol 02/01/2018 44 mg/dL Final National Cholesterol Education Program Guidelines: NON HDL Cholesterol Desirable: <130 mg/dL Borderline High: 130-159 mg/dL High: 160-189 mg/dL Very High: > or = 190 mg/dL WBC 02/01/2018 6.51 4.50 - 11.00 K/mcL Final RBC 02/01/2018 3.52* 4.50 - 5.90 M/mcL Final Hemoglobin 02/01/2018 11.8* 13.5 - 17.5 g/dL Final Hematocrit 02/01/2018 33.9* 41.0 - 53.0 % Final MCV 02/01/2018 96.3 80.0 - 100.0 fL Final MCH 02/01/2018 33.5 26.0 - 34.0 pg Final MCHC 02/01/2018 34.8 31.0 - 37.0 g/dL Final Platelets 02/01/2018 177 150 - 400 K/mcL Final RDW - CV 02/01/2018 12.8 11.6 - 14.8 % Final MPV 02/01/2018 10.2 9.0 - 15.5 fL Final Nucleated RBC 02/01/2018 0.0 % Final Nucleated RBC Abs 02/01/2018 0.00 0.00 - 0.00 K/mcL Final Sodium 02/01/2018 141 135 - 145 mmol/L Final Potassium 02/01/2018 3.9 3.5 - 5.1 mmol/L Final Chloride 02/01/2018 104 98 - 108 mmol/L Final Bicarbonate 02/01/2018 23 21 - 32 mmol/L Final Anion Gap 02/01/2018 18 10 - 20 mmol/L Final Glucose 02/01/2018 105* 65 - 99 mg/dL Final BUN 02/01/2018 16 8 - 25 mg/dL Final Creatinine 02/01/2018 1.43* 0.80 - 1.30 mg/dL Final eGFR 02/01/2018 49* >=60 mL/min/1.73 m2 Final BUN/Creatinine Ratio 02/01/2018 11.2 10.0 - 20.0 Final Calcium 02/01/2018 9.1 8.4 - 10.2 mg/dL Final Ventricular Rate 02/01/2018 79 BPM Final Atrial Rate 02/01/2018 79 BPM Final P-R Interval 02/01/2018 186 ms Final QRS Duration 02/01/2018 154 ms Final Q-T Interval 02/01/2018 426 ms Final QTC Calculation (Bezet) 02/01/2018 488 ms Final P Fate 02/01/2018 6 degrees Final R Fate 02/01/2018 -44 degrees Final T Fate 02/01/2018 83 degrees Final ACT CELITE 01/31/2018 172 seconds Final ACT CELITE 01/31/2018 >400 seconds Final Glucose 02/01/2018 161* 65 - 99 mg/dL Final Assessment & Plan: 75-year-old male with history of adenomatous colon polyp and GERD his last EGD and colonoscopy was in 2014 patient was found to have anemia he will need colonoscopy and EGD to evaluate which is scheduled for March 31 at 9:30 AM at surgery center. José Manuel Naylor [facility] N[facility] - Reported* RUTH MACKEY is being seen for a cardiovascular evaluation . chest pain. * Coronary artery disease [id number] [address] Work Phone: Evaluation note* Diagnosis Anemia, unspecified type- [facility] Anemia, unspecified type- Primary Adenomatous polyp of colon, unspecified part of colon Gastroesophageal reflux disease, unspecified whether esophagitis present Anemia Unspecified anemia Adenomatous polyp of colon Benign neoplasm of colon Gastroesophageal reflux disease Esophageal reflux [facility] Diagnosis Adenomatous polyp of colon, unspecified part of colon- Primary Anemia, unspecified type Gastroesophageal reflux disease, unspecified whether esophagitis present Anemia Unspecified anemia Adenomatous polyp of colon Benign neoplasm of colon Gastroesophageal reflux disease Esophageal reflux [facility] Diagnosis Anemia, unspecified type- Primary Adenomatous polyp of colon, unspecified part of colon Gastroesophageal reflux disease, unspecified whether esophagitis present Anemia Unspecified anemia Adenomatous polyp of colon Benign neoplasm of colon Gastroesophageal reflux disease Esophageal reflux Anemia, unspecified type Adenomatous polyp of colon, unspecified part of colon Gastroesophageal reflux disease, unspecified whether esophagitis present [facility] Diagnosis Chronic ischemic heart disease- Primary Unspecified chronic ischemic heart disease Shortness of breath on exertion Shortness of breath documented in this encounter [facility] Work Phone: Evaluation note* Diagnosis Chronic ischemic heart disease Unspecified chronic ischemic heart disease Shortness of breath on exertion Shortness of breath Chronic ischemic heart disease Unspecified chronic ischemic heart disease Shortness of breath on exertion Shortness of breath Chronic ischemic heart disease Unspecified chronic ischemic heart disease Shortness of breath on exertion Shortness of breath documented in this encounter [facility] Work Phone: Evaluation note* Diagnosis Chronic ischemic heart disease Unspecified chronic ischemic heart disease Shortness of breath on exertion Shortness of breath Chronic ischemic heart disease Unspecified chronic ischemic heart disease Shortness of breath on exertion Shortness of breath Chronic ischemic heart disease Unspecified chronic ischemic heart disease Shortness of breath on exertion Shortness of breath documented in this encounter [facility] Work Phone: Evaluation note* Diagnosis Atherosclerotic heart disease of [place] coronary artery without angina pectoris Coronary angioplasty status Atherosclerotic heart disease of [place] coronary artery without angina pectoris Coronary angioplasty status Chronic ischemic heart disease Unspecified chronic ischemic heart disease Shortness of breath on exertion Shortness of breath Chronic ischemic heart disease Unspecified chronic ischemic heart disease Shortness of breath on exertion Shortness of breath documented in this encounter [facility] Work Phone: Evaluation note* Diagnosis Atherosclerotic heart disease of [place] coronary artery without angina pectoris Coronary angioplasty status Atherosclerotic heart disease of [place] coronary artery without angina pectoris Coronary angioplasty status Chronic ischemic heart disease Unspecified chronic ischemic heart disease Shortness of breath on exertion Shortness of breath Chronic ischemic heart disease Unspecified chronic ischemic heart disease Shortness of breath on exertion Shortness of breath documented in this encounter [facility] Work Phone: Evaluation note* Diagnosis Atherosclerosis- Primary Coronary artery disease involving [place] coronary artery of [place] heart with unstable angina pectoris (CMS/HCC) documented in this encounter [facility] Work Phone: Evaluation note* Diagnosis Type 2 diabetes mellitus with other circulatory complication, without long-term current use of insulin (CMS/HCC)- Primary CAD S/P percutaneous coronary angioplasty HTN (hypertension), benign Essential hypertension, benign Hyperlipidemia, unspecified hyperlipidemia type Hypothyroidism, unspecified type Stage 3 chronic kidney disease, unspecified whether stage 3a or 3b CKD (CMS/[facility]) Ischemic cardiomyopathy Other specified forms of chronic ischemic heart disease documented in this encounter [facility] Work Phone: Evaluation note* Diagnosis 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 [place] heart with stable angina pectoris (CMS/HCC)- Primary 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 [place] heart with stable angina pectoris (CMS/HCC)- Primary documented in this encounter [facility] Work Phone: Evaluation note* Diagnosis 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 [place] heart with stable angina pectoris (CMS/HCC)- Primary 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 [place] heart with stable angina pectoris (CMS/HCC) MCFADDEN (dyspnea on exertion) Other dyspnea and respiratory abnormality Coronary artery disease involving [place] coronary artery of [place] heart with other form of angina pectoris (CMS/HCC) Preop examination Unspecified pre-operative examination 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 [place] heart with stable angina pectoris (CMS/HCC) documented in this encounter [facility] Work Phone: Evaluation note* Diagnosis 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 [place] heart with stable angina pectoris (CMS/HCC)- Primary 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 [place] heart with stable angina pectoris (CMS/HCC) MCFADDEN (dyspnea on exertion) Other dyspnea and respiratory abnormality 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 [place] heart with stable angina pectoris (CMS/HCC) Pre-op examination 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 [place] heart with stable angina pectoris (CMS/HCC) documented in this encounter [facility] Work Phone: Evaluation note* Diagnosis 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 [place] heart with stable angina pectoris (CMS/HCC)- Primary 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 [place] heart with stable angina pectoris (CMS/HCC) MCFADDEN (dyspnea on exertion) Other dyspnea and respiratory abnormality 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 [place] heart with stable angina pectoris (CMS/HCC) Pre-op examination Encounter for preprocedural cardiovascular examination 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 [place] heart with stable angina pectoris (CMS/HCC) documented in this encounter [facility] Work Phone: Evaluation note* Diagnosis 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 [place] heart with stable angina pectoris (CMS/HCC)- Primary 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 [place] heart with stable angina pectoris (CMS/HCC) MCFADDEN (dyspnea on exertion) Other dyspnea and respiratory abnormality 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 [place] heart with stable angina pectoris (CMS/HCC) Pre-op examination Encounter for follow-up examination after completed treatment for conditions other than malignant neoplasm Encounter for preprocedural cardiovascular examination 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 [place] heart with stable angina pectoris (CMS/HCC) documented in this encounter [facility] Work Phone: Evaluation note* Diagnosis 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 [place] heart with stable angina pectoris (CMS/HCC)- Primary 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 [place] heart with stable angina pectoris (CMS/HCC) MCFADDEN (dyspnea on exertion) Other dyspnea and respiratory abnormality S/P CABG x 4 Postsurgical aortocoronary bypass status ETHAN (obstructive sleep apnea) Obstructive sleep apnea (adult) (pediatric) documented in this encounter [facility] Work Phone: Evaluation note* Diagnosis ACS (acute coronary syndrome) (CMS/HCC) Intermediate coronary syndrome documented in this encounter [facility] Work Phone: Evaluation note* Diagnosis ACS (acute coronary syndrome) ([facility]) Intermediate coronary syndrome documented in this encounter [facility] Work Phone: Evaluation note* Diagnosis 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 ([facility])- Primary HTN (hypertension), benign Essential hypertension, benign Hyperlipidemia, unspecified hyperlipidemia type Hypothyroidism, unspecified type Type 2 diabetes mellitus with other circulatory complication, without long-term current use of insulin ([facility]) Stage 3 chronic kidney disease, unspecified whether stage 3a or 3b CKD ([facility]) documented in this encounter [facility] Work Phone: Evaluation note* Diagnosis Type 2 diabetes mellitus with other circulatory complication, without long-term current use of insulin ([facility])- Primary CAD S/P percutaneous coronary angioplasty HTN (hypertension), benign Essential hypertension, benign Hyperlipidemia, unspecified hyperlipidemia type Hypothyroidism, unspecified type Stage 3 chronic kidney disease, unspecified whether stage 3a or 3b CKD ([facility]) Routine general medical examination at health care facility Routine general medical examination at a health care facility documented in this encounter [facility] Work Phone: Evaluation note* Diagnosis 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 [place] heart with stable angina pectoris ([facility])- Primary S/P CABG x 3 Postsurgical aortocoronary bypass status Primary insomnia Persistent disorder of initiating or maintaining sleep documented in this encounter [facility] Work Phone: Evaluation note* Diagnosis S/P CABG x 3 Postsurgical aortocoronary bypass status documented in this encounter [facility] Work Phone: Evaluation note* Diagnosis Hx of CABG- Primary Postsurgical aortocoronary bypass status Hypothyroidism, unspecified type 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 ([facility]) documented in this encounter [facility] Work Phone: Evaluation note* Diagnosis Hx of CABG- Primary Postsurgical aortocoronary bypass status 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 Hypothyroidism, unspecified type Atherosclerosis Shortness of breath on exertion Shortness of breath Coronary angioplasty status documented in this encounter [facility] Work Phone: Evaluation note* Diagnosis Type 2 diabetes mellitus with other circulatory complication, without long-term current use of insulin ([facility])- Primary S/P CABG x 4 Postsurgical aortocoronary bypass status Hypothyroidism, unspecified type Hyperlipidemia, unspecified hyperlipidemia type HTN (hypertension), benign Essential hypertension, benign Stage 3a chronic kidney disease (Multi) Benign prostatic hyperplasia, unspecified whether lower urinary tract symptoms present documented in this encounter [facility] Work Phone: Evaluation note* Diagnosis Onset Date Resolution Status Admit Date Osteoarthritis of knees, bilateral a cute January 15, 2025 2:25pm [facility] Work Phone: History of Present illness Narrative* 76-year-old male here to establish care regarding the following conditions: * Problem #1 coronary artery disease status post ostial RCA stent * -Current medications include aspirin 81 mg, atorvastatin 40 mg, Toprol 100 mg, isosorbide 60 mg daily. * Problem #2 hypertension/hyperlipidemia/type 2 diabetes mellitus * -No recent lipid panels in chart. * Currently denies any chest discomfort or shortness of breath. Denies any orthopnea/PND/lower extremity edema. Had a sleep study a few years ago and was told to wear a CPAP; refused then but is more agreeable at present. [employer] Work Phone: History of Present illness Narrative* I was requested by Dr. Maya to evaluate this patient in consultation for cardiac assessment. * Patient 77-year-old non-smoker diabetic male with prior medical history significant for Coronary Artery Disease status post ostial RCA stent (2018), hypertension, hyperlipidemia, type 2 diabetes mellitus, severe ETHAN on CPAP, lumbosacral spondylosis, neurogenic claudication due to chronic lumbar spinal stenosis, hypothyroidism. He is currently feeling fine and is very active, however he endorses chest pain and some shortness of breath every time he exercises too much. His chest pain is pressure in nature, in the upper chest, gets worse with exercises, improves after a few minutes after resting. He denies palpitations, leg edema, lightheadedness, headaches, fever, chills, orthopnea, paroxysmal nocturnal dyspnea or syncope. * The EKG today shows normal sinus rhythm with no signs of ACS. [employer] Work Phone: Reason for referral (narrative)* Consultation (Routine) Status Reason Specialty Diagnoses / Procedures Referred By Contact Referred To Contact Authorized Gastroenterology Diagnoses Anemia, unspecified type Hamlet Carbajal MD [address] [place] [address] oJsé Manuel Naylor MD [address] [place] [address] Electronically signed by Hamlet Carbajal MD at [facility] for referral (narrative)* Consultation (Routine) - Authorized Specialty Diagnoses / Procedures Referred By Contac t Referred To Contact Primary Care Diagnoses Type 2 diabetes mellitus with other circulatory complication, without long-term current use of insulin ([facility]) CAD S/P percutaneous coronary angioplasty HTN (hypertension), benign Hyperlipidemia, unspecified hyperlipidemia type Hypothyroidism, unspecified type Stage 3 chronic kidney disease, unspecified whether stage 3a or 3b CKD ([facility]) Procedures Follow Up In Primary Care - Medicare Annual Zahra Sanchez MD [facility] [place] [address] Referral ID Status Reason Start Date Expiration Date V isits Requested Visits Authorized [id number] Authorized 08/04/2023 08/03/20[address] [facility] Work Phone: [facility] for referral (narrative)* Consultation (Routine) - Authorized Specialty Diagnoses / Procedures Referred By Contac t Referred To Contact Sleep Medicine Diagnoses ETHAN (obstructive sleep apnea) Mary Garcia, [employer] [employer] [address] [place] [address] Referral ID Status Reason Start Date Expiration Date Visits Requested Visits Authorized [id number] Authorized Specialty Services Required 09/18/2023 09/17/2024 1 1 * Home Health (Routine) - Pending Review Specialty Diagnoses / Procedures Referred By Contac t Referred To Contact Home Health Services Diagnoses S/P CABG x 4 Mary Garcia APRN-PETER [address] [place] [address] [id number] Referral ID Status Reason Start Date Expiration Date Visits Requested Visits Authorized [id number] Pending Review Specialty Services Required 09/18/2023 09/17/[address] [facility] Work Phone: Rexpgw for referral (narrative)* Consultation (Routine) - Authorized Specialty Diagnoses / Procedures Referred By Contac t Referred To Contact Primary Care Diagnoses Type 2 diabetes mellitus with other circulatory complication, without long-term current use of insulin ([facility]) CAD S/P percutaneous coronary angioplasty HTN (hypertension), benign Hyperlipidemia, unspecified hyperlipidemia type Hypothyroidism, unspecified type Stage 3 chronic kidney disease, unspecified whether stage 3a or 3b CKD ([facility]) Procedures Follow Up In Primary Care - Established Zahra Sanchez MD [address] [facility] [place] [address] Referral ID Status Reason Start Date Expiration Date V isits Requested Visits Authorized [id number] Authorized 11/05/2023 11/04/2024 1 1 [facility] Work Phone: Resyvy for referral (narrative)* Consultation (Routine) - Authorized Specialty Diagnoses / Procedures Referred By Contac t Referred To Contact Cardiac Rehabilitation Diagnoses S/P CABG x 3 Mary Garcia APRN-PETER [address] [place] [address] Referral ID Status Reason Start Date Expiration Date Visits Requested Visits Authorized [id number] Authorized Specialty Services Required 11/09/2023 11/08/2024 1 1 * Medications - Pending Review Specialty Diagnoses / Procedures Referred By Scott guardado Referred To Contact Diagnoses Primary insomnia Mary Garcia APRN-CNP [address] [place] [address] Referral ID Status Reason Start Date Expiration Date V isits Requested Visits Authorized [id number] Pending Review 1 1 [facility] Work Phone: Reason for referral (narrative)No reason for referral information [facility] Work Phone: Reason for visit Narrative* Consultation (Routine) Status Reason Specialty Diagnoses / Procedures Referred By Contact Referred To Contact Closed Gastroenterology Diagnoses Anemia, unspecified type Hamlet Carbajal MD [address] [place] [address] José Manuel Naylor MD [address] [place] [id number] [facility]* Consultation (Routine) - Authorized Specialty Diagnoses / Procedures Referred By Scott guardado Referred To Contact Primary Care Diagnoses Type 2 diabetes mellitus with other circulatory complication, without long-term current use of insulin ([facility]) CAD S/P percutaneous coronary angioplasty HTN (hypertension), benign Hyperlipidemia, unspecified hyperlipidemia type Hypothyroidism, unspecified type Stage 3 chronic kidney disease, unspecified whether stage 3a or 3b CKD (CMS/HCC) Procedures Follow Up In Primary Care - Medicare Annual Zahra Sanchez MD [address] [facility] [place] [phone] Referral ID Status Reason Start Date Expiration Date V isits Requested Visits Authorized [id number] Authorized 08/04/2023 08/03/2024 1 1 [facility] Work Phone: Summary Purpose Family History No Family History Records Found Mother Name Dates Details Family history of diabetes m ellitus(V18.0, Z83.3) Status:Active Family history of cardiac di sorder(V17.49, Z82.49) Status:Active Father Name Dates Details Family history of malignant neoplasm(V16.9, Z80.9) Status:Active Family history of diabetes m ellitus(V18.0, Z83.3) Status:Active Brother Name Dates Details Family history of malignant neoplasm(V16.9, Z80.9) Status:Active Family history of Alcohol ab use(305.00, F10.10) Status:Active Mother Name Dates Details Family history of diabetes m ellitus(V18.0, Z83.3) Status:Active Family history of cardiac di sorder(V17.49, Z82.49) Status:Active Father Name Dates Details Family history of diabetes m ellitus(V18.0, Z83.3) Status:Active Family history of malignant neoplasm(V16.9, Z80.9) Status:Active Brother Name Dates Details Family history of malignant neoplasm(V16.9, Z80.9) Status:Active Family history of Alcohol ab use(305.00, F10.10) Status:Active Mother Name Dates Details Family history of diabetes m ellitus(V18.0, Z83.3) Status:Active Family history of cardiac di sorder(V17.49, Z82.49) Status:Active Father Name Dates Details Family history of malignant neoplasm(V16.9, Z80.9) Status:Active Family history of diabetes m ellitus(V18.0, Z83.3) Status:Active Brother Name Dates Details Family history of malignant neoplasm(V16.9, Z80.9) Status:Active Family history of Alcohol ab use(305.00, F10.10) Status:Active Mother Name Dates Details Family history of diabetes m ellitus(V18.0, Z83.3) Status:Active Family history of cardiac di sorder(V17.49, Z82.49) Status:Active Father Name Dates Details Family history of malignant neoplasm(V16.9, Z80.9) Status:Active Family history of diabetes m ellitus(V18.0, Z83.3) Status:Active Brother Name Dates Details Family history of malignant neoplasm(V16.9, Z80.9) Status:Active Family history of Alcohol ab use(305.00, F10.10) Status:Active Mother Name Dates Details Family history of diabetes m ellitus(V18.0, Z83.3) Status:Active Family history of cardiac di sorder(V17.49, Z82.49) Status:Active Father Name Dates Details Family history of malignant neoplasm(V16.9, Z80.9) Status:Active Family history of diabetes m ellitus(V18.0, Z83.3) Status:Active Brother Name Dates Details Family history of malignant neoplasm(V16.9, Z80.9) Status:Active Family history of Alcohol ab use(305.00, F10.10) Status:Active Mother Name Dates Details Family history of diabetes m ellitus(V18.0, Z83.3) Status:Active Family history of cardiac di sorder(V17.49, Z82.49) Status:Active Father Name Dates Details Family history of diabetes m ellitus(V18.0, Z83.3) Status:Active Family history of malignant neoplasm(V16.9, Z80.9) Status:Active Brother Name Dates Details Family history of malignant neoplasm(V16.9, Z80.9) Status:Active Family history of Alcohol ab use(305.00, F10.10) Status:Active Unknown Family Member Name Dates Details Family history of diabetes m ellitus: Mother, Father(V18.0, Z83.3) Status:Active Family history of cardiac di sorder: Mother(V17.49, Z82.49) Status:Active Family history of malignant neoplasm: Father, Brother(V16.9, Z80.9) Status:Active Alcohol abuse: Brother(305.0 0, F10.10) Status:Active Unknown Family Member Name Dates Details Family history of diabetes m ellitus: Mother, Father(V18.0, Z83.3) Status:Active Family history of cardiac di sorder: Mother(V17.49, Z82.49) Status:Active Family history of malignant neoplasm: Father, Brother(V16.9, Z80.9) Status:Active Alcohol abuse: Brother(305.0 0, F10.10) Status:Active Unknown Family Member Name Dates Details Family history of diabetes m ellitus: Mother, Father(V18.0, Z83.3) Status:Active Family history of cardiac di sorder: Mother(V17.49, Z82.49) Status:Active Family history of malignant neoplasm: Father, Brother(V16.9, Z80.9) Status:Active Alcohol abuse: Brother(305.0 0, F10.10) Status:Active Unknown Family Member Name Dates Details Family history of diabetes m ellitus: Mother, Father(V18.0, Z83.3) Status:Active Family history of cardiac di sorder: Mother(V17.49, Z82.49) Status:Active Family history of malignant neoplasm: Father, Brother(V16.9, Z80.9) Status:Active Alcohol abuse: Brother(305.0 0, F10.10) Status:Active Unknown Family Member Name Dates Details Family history of diabetes m ellitus: Mother, Father(V18.0, Z83.3) Status:Active Family history of cardiac di sorder: Mother(V17.49, Z82.49) Status:Active Family history of malignant neoplasm: Father, Brother(V16.9, Z80.9) Status:Active Alcohol abuse: Brother(305.0 0, F10.10) Status:Active Family history of liver canc er: Sister(V16.0, Z80.0) Status:Active Family history of myocardial infarction: Mother(V17.3, Z82.49) Status:Active Relationship Condition Age at Onset Recorded Date/T madan Not Specified Cardiac disease Unknown Malignant neoplasm Unknown Advance Directives No Advanced Directives Records FoundDocuments on File Type Date Recorded 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 Advance Directives and Livin g Will 01/10/2019 2:58 PM Latest Code Status on File Code Status Date Activated Date Inactivated Comments Full Code - Unverified 01/31/2018 9:59 AM Full Code - Unverified 01/28/2018 9:40 AM 01/31/2018 7:5 2 AM Documents on File Type Date Recorded 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 Advance Directives and Livin g Will 01/10/2019 2:58 PM Latest Code Status on File Code Status Date Activated Date Inactivated Comments Full Code - Unverified 01/31/2018 9:59 AM Full Code - Unverified 01/28/2018 9:40 AM 01/31/2018 7:5 2 AM Documents on File Type Date Recorded 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 Advance Directives and Vickiin g Will 03/22/2021 2:58 PM Latest Code Status on File Code Status Date Activated Date Inactivated Comments Full Code 07/29/2023 7:06 AM Question Answer Comments Plan of Care: Code Status Discussion Not Compl eted Decision Maker: Provider Rationale: Patient condition do es not warrant discussion Latest Code Status on File Code Status Date Activated Date Inactivated Comments Full Code 07/29/2023 7:06 AM Question Answer Comments Plan of Care: Code Status Discussion Not Compl eted Decision Maker: Provider Rationale: Patient condition do es not warrant discussion Latest Code Status on File Code Status Date Activated Date Inactivated Comments Full Code 07/29/2023 7:06 AM Question Answer Comments Plan of Care: Code Status Discussion Not Compl eted Decision Maker: Provider Rationale: Patient condition do es not warrant discussion Date Activated Date Inactivated Comments 07/29/2023 7:06 AM Question Answer Comments Plan of Care: Code Status Discussion Not Compl eted Decision Maker: Provider Rationale: Patient condition does not warra nt discussion Date Activated Date Inactivated Comments 07/29/2023 7:06 AM Question Answer Comments Plan of Care: Code Status Discussion Not Compl eted Decision Maker: Provider Rationale: Patient condition does not warra nt discussion Advance Directive Response Recorded Date/ Time Advance Directives Yes January 03 2:52pm Hospital Course Note CLINICAL SUMMARY Please take this summary document to your follow up appointments. [facility] 09/18/19 11:53 [address] [place]. [address] PATIENT INFORMATION Name: JOHNDAIN RUTH Domi Address: [address] [place] [id number] Age: 74 Years Phone: [phone] : 1945 12:00 MRN: ([id number] Sex: Male Race: White Ethnicity: Not Hispan/Lat Admitted From: INT TRNSF, SEP CLAIM Medical Service: Other Nurse Unit/Bed: (CO) 1EBS 1H60-09 Admit Date: 09/15/2019 21:34 PCP: Christina Maya MD PHYSICIANS INVOLVED WITH CARE Attending Physicians: None found Admitting Physician: None found Primary Care Physician:Christina Maya MD,[facility], - Consults: Christiana WOODSON , Jerry Stewart - CardVas Disease Kristin Carrillo DO - Orthopaedic Surg DIAGNOSES: Acute chest pain; Chronic kidney disease (CKD); Chronic pulmonar (more content not included)... Note Patient: RUTH MACKEY MRN: ([id number] Age: 73 years Sex: Male : 1945 Associated Diagnoses: None Author: Rosalba LOMBARDI , Yvette Stewart Impression Diagnosis DDD (degenerative disc disease), lumbar (SEC26-JZ M51.36, Working, Medical). Plan Supervising Physician Comments Documentation By: Consulting Physician. Chief Complaint Postop Medical Co management History of Present Illness 73 y/o M who is S/P L2-S1 PSF; L5-S1 ALIF by Dr. Santamaria and Dr. Wick who requests post op medical; management. data obtained from pre op H and P from PCP. Past Medical History CAD-ARNEL to ostial RCA [address] Valdez HTN Hyperlipidemia Hypothyroidism DM Type 2 ETHAN h/o Nephrolithiasis Surgical History Anesthesia History Reactions (Self): Denies Reactions (Family): Transfusion Reactions: Bleeding Tendencies: BRAD x6 Colonoscopy Kidney stone ext Thyroid bx Health Status Allergies No Known Medication Allergies NKA Medication List (Selected) Inpatient Medications Suspended Gl (more content not included)... Note PROGRESS NOTES Patient is wi thout c/o. VSS tele sinus exam is good. labs noted. increased trop to 1.17 concerning. Discussed with patient and family. He should have cath. Would like to get on wednesday at [facility] if ok with spine. I still think it is likely his Cx area which is closed with collaterals, but we cant be sure. he is agreeable will arrange. Note Patient: RUTH MACKEY MRN: ([id number] Age: 74 years Sex: Male : 1945 Associated Diagnoses: None Author: Cem Gupta MD Comments I was contacted by the charge nurse reporting that the measures had requested the patient be transferred to [facility] today rather than on Wednesday. This was discussed with the patient. Charge nurses may Dr. Villeda in the primary surgical service aware of the request for transfer and surgeon is agreeable. I was contacted by the [place] emergency department physician who is agreed to accept the patient in transfer specifically did request that the surgeon round on the patient in follow-up at [facility]. I did discuss with the charge nurse and does state that Dr. Carrillo is aware of the patient being transferred and will see the patient at [facility] this weekend for routine surgical follow-up. Dr. Villeda of cardiology is also where patient transferred tonight Note Patient si withoutc/o VSS ex am is good. labs noted. patient to have cath tomorrow morning . If all is ok can go home tomorrow afternoon. Family at beside side. Risk/Benefits/Options for cath reviewed. all questions were answered. He is agreeable to the procedures. Note DICTATED BY:JERRY VILLEDA MD SERVICE DATE:2019 CHIEF COMPLAINT AND REASON FOR CONSULTATION: Abnormal laboratory data. BRIEF HISTORY OF PRESENT ILLNESS: This is a pleasant 74-year-old male who has a history of atherosclerotic heart disease. He is status post intervention in 2018. At that time, he underwent diagnostic cardiac catheterization for symptoms he described as having substernal chest discomfort with activity and shortness of breath. He particularly noted this when he was mowing his lawn; but if he would sit and wait 10-15 minutes, this would dissipate. He could then go ahead and finish the rest of his lawn, but sometimes would have symptomatologies reoccur. In any event, he underwent diagnostic cardiac catheterization prior to any myocardial infarction and noted to have severe atherosclerotic heart disease involving the right coronary artery distribution where a high-grade ostial lesion of approximately 85 plus percent stenosis was noted and 100% occlusion of (more content not included)... Note DICTATED BY:JERRY VILLEDA MD SERVICE DATE:09/16/2019 CHIEF COMPLAINT AND REASON FOR CONSULTATION: Status post non-Q-wave myocardial infarction. BRIEF HISTORY OF PRESENT ILLNESS: This is a 74-year-old gentleman who I had the pleasure of seeing during a stay in [facility]. He has a history of atherosclerotic heart disease and is status post intervention in 2018. At that time, he had had some difficulty with angina discomfort for which he underwent diagnostic cardiac catheterization and it demonstrated high-grade lesion in the right coronary artery, which he received stents for and total occlusion of the circumflex artery for which he had formed homocollaterals. He has done very well in that regard since his stenting procedure, which intervened upon the right coronary artery but did not do any therapies to the circumflex artery distribution. He was admitted to [facility] due to difficulties with progressive and debilitating back discomfo (more content not included)... Note Patient: RUTH MACKEY MRN: ([facility])-[id number] Age: 74 years Sex: Male : 1945 Associated Diagnoses: None Author: Austyn WOODSON , Cristino Mckeon Impression and Plan Diagnosis List: Diagnosis . Perpetual Assessment: This is a 74 year old male who was transferred to [facility] on 09/15/2019 from [facility] for evaluation of elevated troponins post lumbar surgery with known CAD. Assessment and plan Elevated troponin -possible NSTEMI with elevated troponin, abnormal EKG findings. -Echo 09/15/19 showed normal EF, but wall motion consistent with lbbb and RVSP 45-50 -Troponin has been trending down, patient remains chest pain free -Dr. Villeda consulted, appreciate recommendations. -Plan for [facility] on Wednesday morning. CAD with stable angina -chest pain free currently. -troponins trended down -continue asa, plavix, and imdur and statin -cardiology following, plan as above secondary pulmonary htn -echo rvsp 45-50mmHg Recent lumbar fusion -s/p lumbar fusion per Dr. Campbell (more content not included)... Note Patient: RUTH MACKEY MRN: [facility])-[id number] Age: 74 years Sex: Male : 1945 Associated Diagnoses: None Author: Selam Duong Supervising Physician Comments Documentation By. Comments Patient was seen 09/17/2019 in the evening for routine rounds. Doing well from spine standpoint. Having increased back pain following a long PT session. Neurologically intact in both LE. Scheduled for cardiac cath in the AM. Fine for routine discharge from spine standpoint. Note Patient: RUTH MACKEY MRN: [facility])-[id number] Age: 73 years Sex: Male : 1945 Associated Diagnoses: None Author: Sandeep WOODSON, Bachar Preoperative Information Planned Procedure Posterior Lumbar Fusion Histories Past Medical History: Active DM (diabetes mellitus) Stented coronary artery - Placed January 2018. Dr. Valdez in [place] , Cardiovascular: Greater than or equal to 4 metabolic equivalents (METS) without symptoms, Hypothyroidism Back pain here for fusion ETHAN No CPAP Plavix off for a week Stress test - with EF 59% Social History: Smoking Status: Never smoked How Often Do You Drink ..: Never (0) Anesthesia History: wakes up aggressive and needs holding down in PACU sometimes. Was OK after his colonoscopy Medications Allergies No Known Medication Allergies NKA Home Medications GlipiZIDE (glipiZIDE 5 mg oral tablet) 1 Tab = 5 mg By Mouth Twice a day acetaminophen (Tylenol Rapid Release Gelcap) 1,000 mg By Mouth, As Needed Pain/Discomfort aspirin (aspirin 81 mg (more content not included)... Note Patient: RUTH MACKEY MRN: [facility])-[id number] Age: 74 years Sex: Male : 1945 Associated Diagnoses: None Author: Elba Kam DO Supervising Physician Comments Documentation By: Attending Physician. Subjective Subjective: Patient participated in the evaluation: Yes. Nausea: not present. Vomiting: not present. Pain: acceptable pain control. Objective Objective: Vital Signs: Last Charted Vital Signs Temperature: 96.6 (09/14 17:04) Pulse: 78 (09/14 17:33) Respiration: 16 (09/14 17:33) BP: 146/84 (09/14 17:04) Pulse Ox: 100 (09/14 17:33) Oxygen Delivery: Nasal cannula (09/14 16:04) O2 Device Flow: 3 L/min Pain Score: 5 (09/14 18:27) . Mental Status: alert and oriented. Postoperative hydration: adequate. Assessment Assessment: Post anesthetic condition: no anesthetic complications, the patient is doing well, pain is adequately controlled. Airway patent: yes. Plan Plan: Postanesthesia Plan: post anesthetic surveillance concluded. Note DICTATED BY:KRISTIN CARRILLO DO SERVICE DATE:2019 PREOPERATIVE DIAGNOSES: 1. Degenerative scoliosis, lumbar spine. 2. Spinal stenosis, L3 to S1. 3. Bilateral lower extremity radiculopathy. POSTOPERATIVE DIAGNOSES: 1. Degenerative scoliosis, lumbar spine. 2. Spinal stenosis, L3 to S1. 3. Bilateral lower extremity radiculopathy. PROCEDURES: Stage II of same day anterior-posterior fusion. 1. Posterior spinal fusion, L2 to S1. 2. Posterior lumbar interbody fusion, L3-4 and L4-5. 3. Bilateral decompression, L3 to S1. 4. Mariner SeaSpine polyaxial pedicle screw instrumentation, L2 to S1. 5. StaXx interbody cage, L3-4 and L4-5. 6. Local bone graft with MagniFuse DBM and Infuse BMP. SURGEON: Kristin Carrillo DO VP EMERGING MEDIA: Rochelle Atkinson PA-C ANESTHESIA: General. INDICATIONS: The patient is a 74-year-old male who earlier same day underwent an L5-S1 anterior lumbar interbody fusion. It was anticipated same day anterior posterior fusion for decompression and correction of his deformity. He (more content not included)... Note DICTATED BY:CHRISTINA WICK DO SERVICE DATE:2019 PREOPERATIVE DIAGNOSIS: Scoliosis. POSTOPERATIVE DIAGNOSIS: Scoliosis. PROCEDURES: 1. Anterior lumbar interbody fusion, L5-S1, via retroperitoneal approach. 2. Insertion of cage, L5- S1. 3. Instrumentation, L5-S1. 4. C-arm fluoroscopy. 5. Use of bioprosthetic material. SURGEON: Christina Wick DO SPINE SURGEON: Kristin Carrillo DO ANESTHESIA: General. BLOOD LOSS: Less than 25 mL. DRAINS: None. SUMMARY OF PROCEDURE: After informed consent was obtained from the patient, he was taken to the operative theater where the Department of Anesthesia provided general anesthesia with endotracheal tube. Ortega catheter, SCDs, and neurostimulatory monitoring leads were placed. He was placed in the supine position. C-arm fluoroscopy was brought in and we externally marked the L5-S1 segment. He was then cleaned and draped in sterile manner, first with alcohol, chlorhexidine, sterile towels, drape sheet, and Ioban. A 15-blade scalpel was used to make a (more content not included)... Discharge Instructions The following attachments cannot be sent through Care Everywhere. 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 Plan Supervising Physician Comments Documentation By: Consulting Physician. Chief Complaint Postop Medical Co management History of Present Illness 73 y/o M who is S/P L2-S1 PSF; L5-S1 ALIF by Dr. Santamaria and Dr. Wick who requests post op medical; management. data obtained from pre op H and P from PCP. Past Medical History CAD-ARNEL to ostial RCA [address] Valdez HTN Hyperlipidemia Hypothyroidism DM Type 2 ETHAN h/o Nephrolithiasis Surgical History Anesthesia History Reactions (Self): Denies Reactions (Family): Transfusion Reactions: Bleeding Tendencies: BRAD x6 Colonoscopy Kidney stone ext Thyroid bx Health Status Allergies No Known Medication Allergies NKA Medication List (Selected) Inpatient Medications Suspended Gl (more content not included)... Note PROGRESS NOTES Patient is wi thout c/o. VSS tele sinus exam is good. labs noted. increased trop to 1.17 concerning. Discussed with patient and family. He should have cath. Would like to get on wednesday at [facility] if ok with spine. I still think it is likely his Cx area which is closed with collaterals, but we cant be sure. he is agreeable will arrange. Note Patient: RUTH MACKEY MRN: ([facility])-[id number] Age: 74 years Sex: Male : 1945 Associated Diagnoses: None Author: Candy WOODSON , Cem Rossi Comments I was contacted by the charge nurse reporting that the measures had requested the patient be transferred to [facility] today rather than on Wednesday. This was discussed with the patient. Charge nurses may Dr. Villeda in the primary surgical service aware of the request for transfer and surgeon is agreeable. I was contacted by the [place] emergency department physician who is agreed to accept the patient in transfer specifically did request that the surgeon round on the patient in follow-up at [facility]. I did discuss with the charge nurse and does state that Dr. Carrillo is aware of the patient being transferred and will see the patient at [facility] this weekend for routine surgical follow-up. Dr. Villeda of cardiology is also where patient transferred tonight Note Patient si withoutc/o VSS ex am is good. labs noted. patient to have cath tomorrow morning . If all is ok can go home tomorrow afternoon. Family at beside side. Risk/Benefits/Options for cath reviewed. all questions were answered. He is agreeable to the procedures. Note DICTATED BY:JERRY VILLEDA MD SERVICE DATE:2019 CHIEF COMPLAINT AND REASON FOR CONSULTATION: Abnormal laboratory data. BRIEF HISTORY OF PRESENT ILLNESS: This is a pleasant 74-year-old male who has a history of atherosclerotic heart disease. He is status post intervention in 2018. At that time, he underwent diagnostic cardiac catheterization for symptoms he described as having substernal chest discomfort with activity and shortness of breath. He particularly noted this when he was mowing his lawn; but if he would sit and wait 10-15 minutes, this would dissipate. He could then go ahead and finish the rest of his lawn, but sometimes would have symptomatologies reoccur. In any event, he underwent diagnostic cardiac catheterization prior to any myocardial infarction and noted to have severe atherosclerotic heart disease involving the right coronary artery distribution where a high-grade ostial lesion of approximately 85 plus percent stenosis was noted and 100% occlusion of (more content not included)... Note DICTATED BY:JERRY VILLEDA MD SERVICE DATE:09/16/2019 CHIEF COMPLAINT AND REASON FOR CONSULTATION: Status post non-Q-wave myocardial infarction. BRIEF HISTORY OF PRESENT ILLNESS: This is a 74-year-old gentleman who I had the pleasure of seeing during a stay in [facility]. He has a history of atherosclerotic heart disease and is status post intervention in 2018. At that time, he had had some difficulty with angina discomfort for which he underwent diagnostic cardiac catheterization and it demonstrated high-grade lesion in the right coronary artery, which he received stents for and total occlusion of the circumflex artery for which he had formed homocollaterals. He has done very well in that regard since his stenting procedure, which intervened upon the right coronary artery but did not do any therapies to the circumflex artery distribution. He was admitted to [facility] due to difficulties with progressive and debilitating back discomfo (more content not included)... Note Patient: RUTH MACKEY MRN: [id number] Age: 74 years Sex: Male : 1945 Associated Diagnoses: None Author: Austyn WOODSON , Cristino Mckeon Impression and Plan Diagnosis List: Diagnosis . Perpetual Assessment: This is a 74 year old male who was transferred to [facility] on 09/15/2019 from [facility] for evaluation of elevated troponins post lumbar surgery with known CAD. Assessment and plan Elevated troponin -possible NSTEMI with elevated troponin, abnormal EKG findings. -Echo 09/15/19 showed normal EF, but wall motion consistent with lbbb and RVSP 45-50 -Troponin has been trending down, patient remains chest pain free -Dr. Villeda consulted, appreciate recommendations. -Plan for [facility] on Wednesday morning. CAD with stable angina -chest pain free currently. -troponins trended down -continue asa, plavix, and imdur and statin -cardiology following, plan as above secondary pulmonary htn -echo rvsp 45-50mmHg Recent lumbar fusion -s/p lumbar fusion per Dr. Campbell (more content not included)... Note Patient: RUTH MACKEY MRN: [id number] Age: 74 years Sex: Male : 1945 Associated Diagnoses: None Author: Rehan REDMOND, Selam Hough Supervising Physician Comments Documentation By. Comments Patient was seen 09/17/2019 in the evening for routine rounds. Doing well from spine standpoint. Having increased back pain following a long PT session. Neurologically intact in both LE. Scheduled for cardiac cath in the AM. Fine for routine discharge from spine standpoint. Diagnosis Chest tightness or pressure - Primary Cardiac angina (HCC) Other and unspecified angina pectoris Diagnosis Pre-procedure lab exam - [facility] rian Pre-procedural laboratory examination Chest tightness or pressure MCFADDEN (dyspnea on exertion) Other dyspnea and respiratory abnormality Hypertension, unspecified ty pe Diagnosis Essential hypertension Unspecified essential hypertension Coronary artery disease invo lving skag[place] coronary artery, angina presence unspecified, unspecified whether [place] or transplanted heart MCFADDEN (dyspnea on exertion) Other dyspnea and respiratory abnormality Diagnosis Coronary artery disease invo lving [place] coronary artery, angina presence unspecified, unspecified whether [place] or transplanted heart - Primary Essential hypertension Unspecified essential hypertension Diagnosis Calhoun lesion Nonspecific (abnormal) findings on radiological and other examination of lung field Diagnosis Pain Generalized pain Reason for Referral Status Reason Specialty Diagnoses / Procedures Referre d By Contact Referred To Contact Closed Radiology Diagnoses Calhoun lesion Procedures CT Chest Without Contrast Hamlet Carbajal MD [facility] [place] [address] Specialty Diagnoses / Procedures Referred By Contac t Referred To Contact Cardiology Diagnoses Chronic ischemic heart disease Shortness of breath on exertion Procedures Transthoracic Echo (TTE) Complete WV ECHO TRANSTHORC R-T 2D W/WO M-MODE REC F-UP/LMTD WV DOP ECHOCARD COLOR FLOW VELOCITY MAPPING WV DOP ECHOCARD PULSE WAVE W/SPECTRAL F-UP/LMTD STD Broderick Morataya MD [address] [facility], [facility] [address] [place] [phone] Referral ID Status Reason Start Date Expiration Date Visits Requested Visits Authorized [id number] Authorized Perform Procedure 06/06/2024 1 1 Specialty Diagnoses / Procedures Referred By Contac t Referred To Contact Diagnoses Atherosclerotic heart disease of skag[place] coronary artery without angina pectoris Coronary angioplasty status Procedures Cardiology Interpretation Of Nuclear Stress - See Other Report For Nuclear Portion Broderick Morataya MD [address] [facility], [facility] [address] [place] [address] Referral ID Status Reason Start Date Expiration Date V isits Requested Visits Authorized [id number] Pending Review 05/31/2023 11/27/2023 1 1 Specialty Diagnoses / Procedures Referred By Contac t Referred To Contact Diagnoses Atherosclerotic heart disease of [place] coronary artery without angina pectoris Coronary angioplasty status Procedures Nuclear Stress Test CHG MYOCARDIAL SPECT MULTIPLE STUDIES CHG MYOCARDIAL SPECT SINGLE STUDY AT REST OR STRESS WV CV STRS TST XERS&/OR RX CONT ECG W/O I&R WV CV STRS TST XERS&/OR RX CONT ECG I&R ONLY WV CV STRS TST XERS&/OR RX CONT ECG TRCG ONLY WV CV STRS TST XERS&/OR RX CONT ECG W/SI&R Broderick Morataya MD [address] [facility], [address] [place] [address] Referral ID Status Reason Start Date Expiration Date Visits Re quested Visits Authorized [id number] Closed 05/07/2023 06/21/2023 3 3 Specialty Diagnoses / Procedures Referred By Contac t Referred To Contact Diagnoses Coronary artery disease involving skag[place] coronary artery of sk[place] heart with other form of angina pectoris (CMS/HCC) Preop examination Procedures Spirometry Pre/Post Bronchodilator Mary Garcia HAND TACKER-DISPENSING LEAD [address] [place] [address] Referral ID Status Reason Start Date Expiration Date V isits Requested Visits Authorized Pending Review 09/01/2023 08/31/2024 1 1 Specialty Diagnoses / Procedures [facility] To Contact Diagnoses 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 [place] heart with stable angina pectoris (CMS/HCC) Pre-op examination Procedures Arterial Blood Gas (ABG) Mary Garcia HAND TACKER-DISPENSING LEAD [address] [place] [address] Referral ID Status Reason Start Date Expiration Date V isits Requested Visits Authorized Pending Review 08/31/2023 08/30/2024 1 1 Specialty Diagnoses / Procedures Referred By Contac t Referred To Contact Cardiology Diagnoses 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 [place] heart with stable angina pectoris (CMS/HCC) Pre-op examination Procedures Vascular US lower extremity vein mapping bilateral Mary Garcia HAND TACKER-DISPENSING LEAD [address] [place] [address] Referral ID Status Reason Start Date Expiration Date Visits Requested Visits Authorized Authorized Perform Procedure 08/31/2023 08/30/2024 1 1 Specialty Diagnoses / Procedures Referred By Contac t Referred To Contact Radiology Diagnoses 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 [place] heart with stable angina pectoris (CMS/HCC) Pre-op examination Procedures CT chest wo IV contrast Mary Garcia APRN-DISPENSING LEAD [address] [phone] Referral ID Status Reason Start Date Expiration Date Visits Requested Visits Authorized Authorized Perform Procedure 08/31/2023 08/30/2024 1 1 Specialty Diagnoses / Procedures Referred By Contac t Referred To Contact Cardiology Diagnoses 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 [place] heart with stable angina pectoris (CMS/HCC) Pre-op examination Encounter for follow-up examination after completed treatment for conditions other than malignant neoplasm Procedures Vascular US carotid artery duplex bilateral Mary Garcia APRN-DISPENSING LEAD [address] [phone] Referral ID Status Reason Start Date Expiration Date Visits Requested Visits Authorized Authorized Perform Procedure 08/31/2023 08/30/2024 1 1 Specialty Diagnoses / Procedures Referred By Contac t Referred To Contact Diagnoses ACS (acute coronary syndrome) (CMS/HCC) Procedures ECG 12 lead (Ancillary Performed) Mary Garcia APRN-DISPENSING LEAD [address] [phone] Referral ID Status Reason Start Date Expiration Date V isits Requested Visits Authorized [id number] Authorized 09/21/2023 09/20/2024 1 1 Specialty Diagnoses / Procedures Referred By Contac t Referred To Contact Radiology Diagnoses S/P CABG x 3 Procedures XR chest 2 views Jose Carlos Malagon MD [address] [address] Referral ID Status Reason Start Date Expiration Date Visits Requested Visits Authorized [id number] Authorized Perform Procedure 09/20/2023 09/19/2024 1 1 Procedure Findings Note Patient: RUTH MACKEY MRN: [id number] Age: 73 years Sex: Male : 1945 Associated Diagnoses: None Author: Sandeep WOODSON, Patricia Preoperative Information Planned Procedure Posterior Lumbar Fusion Histories Past Medical History: Active DM (diabetes mellitus) Stented coronary artery - Placed January 2018. Dr. Valdez in [place] , Cardiovascular: Greater than or equal to 4 metabolic equivalents (METS) without symptoms, Hypothyroidism Back pain here for fusion ETHAN No CPAP Plavix off for a week Stress test - with EF 59% Social History: Smoking Status: Never smoked How Often Do You Drink ..: Never (0) Anesthesia History: wakes up aggressive and needs holding down in PACU sometimes. Was OK after his colonoscopy Medications Allergies No Known Medication Allergies NKA Home Medications GlipiZIDE (glipiZIDE 5 mg oral tablet) 1 Tab = 5 mg By Mouth Twice a day acetaminophen (Tylenol Rapid Release Gelcap) 1,000 mg By Mouth, As Needed Pain/Discomfort aspirin (aspirin 81 mg (more content not included)... Note Patient: RUTH MACKEY MRN: ([id number] Age: 74 years Sex: Male : 1945 Associated Diagnoses: None Author: Elba Kam DO Supervising Physician Comments Documentation By: Attending Physician. Subjective Subjective: Patient participated in the evaluation: Yes. Nausea: not present. Vomiting: not present. Pain: acceptable pain control. Objective Objective: Vital Signs: Last Charted Vital Signs Temperature: 96.6 (09/14 17:04) Pulse: 78 (09/14 17:33) Respiration: 16 (09/14 17:33) BP: 146/84 (09/14 17:04) Pulse Ox: 100 (09/14 17:33) Oxygen Delivery: Nasal cannula (09/14 16:04) O2 Device Flow: 3 L/min Pain Score: 5 (09/14 18:27) . Mental Status: alert and oriented. Postoperative hydration: adequate. Assessment Assessment: Post anesthetic condition: no anesthetic complications, the patient is doing well, pain is adequately controlled. Airway patent: yes. Plan Plan: Postanesthesia Plan: post anesthetic surveillance concluded. Note DICTATED BY:KRISTIN CARRILLO DO SERVICE DATE:2019 PREOPERATIVE DIAGNOSES: 1. Degenerative scoliosis, lumbar spine. 2. Spinal stenosis, L3 to S1. 3. Bilateral lower extremity radiculopathy. POSTOPERATIVE DIAGNOSES: 1. Degenerative scoliosis, lumbar spine. 2. Spinal stenosis, L3 to S1. 3. Bilateral lower extremity radiculopathy. PROCEDURES: Stage II of same day anterior-posterior fusion. 1. Posterior spinal fusion, L2 to S1. 2. Posterior lumbar interbody fusion, L3-4 and L4-5. 3. Bilateral decompression, L3 to S1. 4. Mariner SeaSpine polyaxial pedicle screw instrumentation, L2 to S1. 5. StaXx interbody cage, L3-4 and L4-5. 6. Local bone graft with MagniFuse DBM and Infuse BMP. SURGEON: Kristin Carrillo DO VP EMERGING MEDIA: Rochelle Atkinson PA-C ANESTHESIA: General. INDICATIONS: The patient is a 74-year-old male who earlier same day underwent an L5-S1 anterior lumbar interbody fusion. It was anticipated same day anterior posterior fusion for decompression and correction of his deformity. He (more content not included)... Note DICTATED BY:CHRISTINA WICK DO SERVICE DATE:2019 PREOPERATIVE DIAGNOSIS: Scoliosis. POSTOPERATIVE DIAGNOSIS: Scoliosis. PROCEDURES: 1. Anterior lumbar interbody fusion, L5-S1, via retroperitoneal approach. 2. Insertion of cage, L5- S1. 3. Instrumentation, L5-S1. 4. C-arm fluoroscopy. 5. Use of bioprosthetic material. SURGEON: Christina Wick DO SPINE SURGEON: Kristin Carrillo DO ANESTHESIA: General. BLOOD LOSS: Less than 25 mL. DRAINS: None. SUMMARY OF PROCEDURE: After informed consent was obtained from the patient, he was taken to the operative theater where the Department of Anesthesia provided general anesthesia with endotracheal tube. Ortega catheter, SCDs, and neurostimulatory monitoring leads were placed. He was placed in the supine position. C-arm fluoroscopy was brought in and we externally marked the L5-S1 segment. He was then cleaned and draped in sterile manner, first with alcohol, chlorhexidine, sterile towels, drape sheet, and Ioban. A 15-blade scalpel was used to make a (more content not included)... Chief Complaint Coronary artery disease Chief Complaint and Reason for Visit Chief Complaint Admit Date BL KNEES January 15, 2025 2:25p m Reason for Visit Admit Date Osteoarthritis of knees, bilateral January 15, 2025 2:25pm Additional Source Comments (unrecognized sect ion and content) No Status Records FoundNo Status Records FoundNo Status Records FoundNo Status Records FoundNo Status Records FoundNo Status Records FoundNo Status Records FoundNo Status Records FoundNo Status Records FoundNo Status Records FoundNo Status Records FoundNo Status Records FoundNo Status Records FoundNo Status Records FoundNo Status Records Found INFORMATION SOURCE (unrecogn ized section and content) DATE CREATED AUTHOR 01/31/2018 [facility] DATE CREATED AUTHOR AUTHOR'S ORGANIZ ATION 05/18/2019 [facility] DATE CREATED AUTHOR AUTHOR'S ORGANIZ ATION 09/21/2019 [facility] DATE CREATED AUTHOR AUTHOR'S ORGANIZ ATION 03/02/2021 [facility] DATE CREATED AUTHOR AUTHOR'S ORGANIZ ATION 03/12/2021 [facility] DATE CREATED AUTHOR AUTHOR'S ORGANIZ ATION 09/26/2021 [employer] DATE CREATED AUTHOR AUTHOR'S ORGANIZ ATION 12/08/2021 [facility] DATE CREATED AUTHOR AUTHOR'S ORGANIZ ATION 09/23/2023 [facility] DATE CREATED AUTHOR AUTHOR'S ORGANIZ ATION 09/23/2023 [facility] DATE CREATED AUTHOR AUTHOR'S ORGANIZ ATION 04/22/2024 [facility] DATE CREATED AUTHOR AUTHOR'S ORGANIZ ATION 05/03/2024 [facility] DATE CREATED AUTHOR AUTHOR'S ORGANIZ ATION 06/09/2024 [facility] DATE CREATED AUTHOR AUTHOR'S ORGANIZ ATION 05/20/2025 [facility] DATE CREATED AUTHOR AUTHOR'S ORGANIZ ATION 06/09/2025 [facility] DATE CREATED AUTHOR AUTHOR'S ORGANIZ ATION 06/12/2025 [facility] Eric Rios MD - 01/31/2018 8:40 AM EDT H&P Notes (unrecognized sect ion and content) Formatting of this note may be different from the original. HISTORY AND PHYSICAL Patient Name: Ruth Mackey Admit Date: [id number] [id number] 1945 Physicians: Christina Maya MD (Family); No ref. provider found (Referring) Assessment and Plan/Recommendations: Chest tightness or pressure Assessment & Plan Patient is a 72-year-old gentleman well known to me with long history of coronary artery disease status post right coronary stent implantation presently 15 years earlier. He done quite well over the past several years on medical therapy however approximately 6 months ago began experiencing very typical recurrent exertional angina with moderate exertion which resolved with rest. Over the past 2 weeks his symptoms have dramatically accelerated and now includes significant exertional dyspnea and chest pain with minimal exertion which takes 10-15 minutes to resolve. He has had no resting pain nor signs or symptoms of heart failure and presents now for evaluation. --Given the accelerated nature of this gentlemen's pain as well as a long history of coronary disease and discomfort with very minimal exertion we will proceed directly to cardiac catheterization at this time. Procedure been described in detail to the patient including risks and benefits and he does consent to proceed. Chief Complaint/Reason for Visit: Exertional chest discomfort History of Present Illness: Ruth Mackey is a 72 y.o. y/o male well known to me with long history of coronary artery disease status post right coronary stent implantation presently 15 years earlier. He done quite well over the past several years on medical therapy however approximately 6 months ago began experiencing very typical recurrent exertional angina with moderate exertion which resolved with rest. Over the past 2 weeks his symptoms have dramatically accelerated and now includes significant exertional dyspnea and chest pain with minimal exertion which takes 10-15 minutes to resolve. He has had no resting pain nor signs or symptoms of heart failure and presents now for evaluation. History: Past Medical History: Diagnosis Date Anxiety Chest tightness Diabetes (HCC) Disease of thyroid gland MCFADDEN (dyspnea on exertion) Hyperlipidemia Hypertension Past Surgical History: Procedure Laterality Date CARDIAC CATHETERIZATION kidney stone removal Family History Problem Relation Age of Onset Heart disease Father Heart disease Brother Social History Social History Marital status: Spouse name: N/A Number of children: N/A Years of education: N/A Occupational History Not on file. Social History Main Topics Smoking status: Never Smoker Smokeless tobacco: Never Used Alcohol use No Drug use: No Sexual activity: Not on file Other Topics Concern Not on file Social History Narrative No narrative on file Allergy: I have reviewed the patient's allergies. Patient has no known allergies. Home Medications: Outpatient Prescriptions as of 01/31/2018 Medication Sig aspirin 81 MG EC tablet Take 81 mg by mouth daily. atorvastatin (LIPITOR) 20 MG tablet Take 20 mg by mouth daily . glipiZIDE (GLUCOTROL) 5 MG tablet Take 5 mg by mouth 2 (two) times a day . lisinopril (PRINIVIL,ZESTRIL) 10 MG tablet Take 10 mg by mouth daily. metoprolol succinate (TOPROL-XL) 100 MG 24 hr tablet Take 100 mg by mouth daily. tamsulosin (FLOMAX) 0.4 mg capsule Take 0.4 mg by mouth daily. Review of Systems: The following system(s) were reviewed and pertinent findings noted: All other systems reviewed and negative other than HPI Physical Examination: Vital Signs: BP 146/89 (BP Location: Right arm, Patient Position: Lying) Pulse 77 Temp 98 F (36.7 C ) (Oral) Resp (!) 20 Ht 5' 8 Wt 93 kg (205 lb) SpO2 97% BMI 31.17 kg/m General: No acute distress, alert, and oriented x3. Skin: Normal turgor, well-hydrated, no rashes noted. Eyes: Pupils round and reactive to light bilaterally. Extraocular muscles intact bilaterally. Conjunctiva/sclera clear bilaterally. HEENT: Normocephalic/atraumatic. Oropharynx WNL, mucous membranes moist. Neck: Supple, trachea midline, no thyromegaly,no palpable adenopathy Cardiovascular: Regular rate and rhythm. No clicks, rubs, murmurs, or gallops noted. Respiratory: Clear to auscultation bilaterally without wheezes, rhonchi, or crackles noted. No accessory muscles or increased work of breathing. Abdominal: Soft, nontender, nondistended, normal bowel sounds. No palpable organomegaly or masses noted. Extremities: No cyanosis or clubbing. Pulses intact. No peripheral edema noted. Neurological: Cranial nerves 2 through 12 intact grossly. No focal neurological deficits noted. Psych: Alert and oriented times 3. Normal mood and affect. Laboratory and Additional Data Reviewed: Laboratory 01/31/18 8:41 AM Cardiology 01/31/18 8:41 AM Transcriptions 01/31/18 8:41 AM No results found.in this encounter Ruthy Cox RN - 01/31/2018 2:13 PM EDT Consult Notes (unrecognized section and content) Discussed importance of medications, follow up appointments, and Cardiac Rehab with patient/family.Discussed with patient that their physician has referred him/her to our outpatient Cardiac Rehabilitation program. A Cardiac Rehabilitation nurse will contact patient or patient may call [phone] for additional information. Cardiac Rehabilitation brochure provided to patient/family.The Cardiac Rehabilitation Program will be provided the patient's referral information and pertinent patient details and history. in this encounter Assessment & Plan Note - Asiya Dominguez CNP - 02/01/2018 10:14 AM EDTAssessment & Plan Note - Asiya Dominguez CNP - 01/31/2018 8:38 AM EDT Miscellaneous Notes (unrecog nized section and content) Associated Problem(s): Coronary artery disease --Cath 01/31 revealed that the circumflex was small and appeared chronically occluded/recanalized. The RCA was very large with a moderately severe ostial stenosis and catheter damping. The artery was evaluated with IVUS and was 85% stenosed and heavily calcified. Given the size of the vessel and his typical, limiting symptoms on medications, the vessel was stented with a 5.0 ARNEL with a good result. --Minimum one year DAPT with aspirin and plavix --Continue statin, BB, increased lisinopril today for goal BP <130/80. --Follow-up established with an [facility] and Dr Rios in [place] Associated Problem(s): Chest tightness or pressure Patient is a 72-year-old gentleman well known to me with long history of coronary artery disease status post right coronary stent implantation presently 15 years earlier. He done quite well over the past several years on medical therapy however approximately 6 months ago began experiencing very typical recurrent exertional angina with moderate exertion which resolved with rest. Over the past 2 weeks his symptoms have dramatically accelerated and now includes significant exertional dyspnea and chest pain with minimal exertion which takes 10-15 minutes to resolve. He has had no resting pain nor signs or symptoms of heart failure and presents now for evaluation. --Cath 01/31 as described abovein this encounter Associated Problem(s): Chest tightness or pressure Ruth relates that he has been experiencing chest pressure over the past 6 months with activity. He first noticed it this past Winter and thought it was related to the cold but has noticed it persists and is getting more frequent and intense over the past 1-2 months. The pressure is like a band around his chest, a 5-6 in intensity vs a 2-3 several months ago. The sensation is relieved with rest. He denies nausea with the pressure but does have diaphoresis. Ruth presented with a copy of an ECG from the [place] from 12/31/2017 showing a sinus rhythm with rate of 68 with LBBB of unknown onset. Discussed with Dr. Rios. Due tot he escalating nature of Ruth's symptoms and new onset will schedule a Cardiac [place] [facility] CBC, BMP and ECG today. Discussed procedure with Ruth and his and instructed that they will be contacted with date and time of procedure. RX for NTG given and reviewed use. Associated Problem(s): MCFADDEN (dyspnea on exertion) Ruth was referred back for follow up from the [place]. He has not been seen by Dr. Rios since February 2015. His last stress test at that time normal according to Ruth. He has been followed by the IN for most of his care as well as by Dr. Maya. 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 He has Type 2 diabetes and is also being worked up for nodules on his lungs. The results of a CT of his chest were obtained which showed 2 nodules in the right lower lobe. [facility]. He is a non-smoker. Ruth related that he has noticed a shortness of breath/tightness in his chest with activity over the past 6 months. He thought it was related to the cold weather when he first noticed it but has continued to progress throughout the Spring to the present time. It is predictable in nature related to activity however the intensity has increased over the past 1-2 months.in this encounter Associated Problem(s): MCFADDEN (dyspnea on exertion) Denies MCFADDEN with exception of the 2 episodes of chest pressure that were relieved with 1 NTG and rest Previous frequent MCFADDEN has resolved since cardiac cath. 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 RCA with 85% ostial stenosis, after IVUS, ARNEL to RCA. CX was small and appeared chronically occluded/recanalized with collateral circulation CX to CX Currently on DAPT, discussed need to continue for minimum one year uninterrupted. Ruth has spinal stenosis with chronic back pain and receives spinal injections approx every 15-[address] Mcgowan. I explained that the recommendation is to not stop Plavix for at least one year. Ruth states that shortly after his cath he and his went to [place] for several days and did quite a bit of walking, in and out of the heat. He had no symptoms. Since then he has had 2 episodes of chest pressure, going across his upper chest, a squeezing sensation with no other radiation. It was associated with slight SOB. He was working outside in the heat and high humidity. He went inside, took 1 NTG with relief. Each time it lasted approx 2-3 minutes. The last episode was over one week ago. We discussed his cath results further, the blockage in the CX, use of NTG and being aware of his pattern of anginal symptoms: predictable vs. unpredictable in nature. We also discussed formal Cardiac Rehab. At this time Ruth doesn't feel he wants to do formal Rehab and drive to [place] or [place] 3 times per week for CR. [place] [address] and is going to do the walking path there. I suggested he do it with his , and not alone, and take his NTG and a cell phone. If he develops continuing issues with chest pressure with walking I asked him to contact the office but certainly to call 911 if the sensation is not relieved with NTG. We discussed not being out in the extreme heat and humidity and performing exercise/heavy activity. Current meds: ASA, Plavix, Lipitor, Toprol-XL Associated Problem(s): Hypertension B/P at goal today Takes and tolerates lisinopril 20 mg, Toprol-XL 100 mgin this encounter Reason for Visit (unrecogniz ed section and content) Status Reason Specialty Diagnoses / Procedures Referre d By Contact Referred To Contact Closed Radiology Diagnoses [place] lesion Procedures CT Chest Without Contrast Hamlet Carbajal MD [address] [place] [id number] Specialty Diagnoses / Procedures Referred By Contac t Referred To Contact Cardiology Diagnoses Chronic ischemic heart disease Shortness of breath on exertion Procedures Transthoracic Echo (TTE) Complete WV ECHO TRANSTHORC R-T 2D W/WO M-MODE REC F-UP/LMTD WV DOP ECHOCARD COLOR FLOW VELOCITY MAPPING WV DOP ECHOCARD PULSE WAVE W/SPECTRAL F-UP/LMTD STD Broderick Morataya MD [address] [facility], [place] [address] Referral ID Status Reason Start Date Expiration Date Visits Requested Visits Authorized [id number] Authorized Perform Procedure 3 06/06/2024 1 1 Specialty Diagnoses / Procedures Referred By Scott t Referred To Contact Diagnoses Atherosclerotic heart disease of [place] coronary artery without angina pectoris Coronary angioplasty status Procedures Nuclear Stress Test CHG MYOCARDIAL SPECT MULTIPLE STUDIES CHG MYOCARDIAL SPECT SINGLE STUDY AT REST OR STRESS WV CV STRS TST XERS&/OR RX CONT ECG W/O I&R WV CV STRS TST XERS&/OR RX CONT ECG I&R ONLY WV CV STRS TST XERS&/OR RX CONT ECG TRCG ONLY WV CV STRS TST XERS&/OR RX CONT ECG W/SI&R Broderick Morataya MD [address] [facility], [place] [id number] Referral ID Status Reason Start Date Expiration Date Visits Re quested Visits Authorized [id number] Closed 05/07/2023 06/21/2023 3 3 Reason Comments Post-Cath Reason Comments New Patient Visit Ruth is here for a surgical consult regarding CAD. Specialty Diagnoses / Procedures Referred By Contac t Referred To Contact Diagnoses Coronary artery disease involving [place] coronary artery of [place] heart with other form of angina pectoris (CMS/HCC) Preop examination Procedures Spirometry Pre/Post Bronchodilator Mary Garcia, HAND TACKER-DISPENSING LEAD [address] [place] [address] Referral ID Status Reason Start Date Expiration Date V isits Requested Visits Authorized [id number] Pending Review 09/01/2023 08/31/2024 1 1 Specialty Diagnoses / Procedures Referred By Contac t Referred To Contact Diagnoses 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 [place] heart with stable angina pectoris (CMS/HCC) Pre-op examination Procedures Arterial Blood Gas (ABG) Mary Garcia APRN-DISPENSING LEAD [address] [place] [address] Referral ID Status Reason Start Date Expiration Date V isits Requested Visits Authorized Pending Review 08/31/2023 08/30/2024 1 1 Specialty Diagnoses / Procedures Referred By Contac t Referred To Contact Cardiology Diagnoses 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 [place] heart with stable angina pectoris (CMS/HCC) Pre-op examination Procedures Vascular US lower extremity vein mapping bilateral Mary Garcia APRN-DISPENSING LEAD [address] [place] [id number] Referral ID Status Reason Start Date Expiration Date Visits Requested Visits Authorized Authorized Perform Procedure 08/31/2023 08/30/2024 1 1 Specialty Diagnoses / Procedures Referred By Contac t Referred To Contact Radiology Diagnoses 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 [place] heart with stable angina pectoris (CMS/HCC) Pre-op examination Procedures CT chest wo IV contrast Mary Garcia APRN-DISPENSING LEAD [address] [place] [address] Referral ID Status Reason Start Date Expiration Date Visits Requested Visits Authorized Authorized Perform Procedure 08/31/2023 08/30/2024 1 1 Specialty Diagnoses / Procedures Referred By Contac t Referred To Contact Cardiology Diagnoses 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 [place] heart with stable angina pectoris (CMS/HCC) Pre-op examination Encounter for follow-up examination after completed treatment for conditions other than malignant neoplasm Procedures Vascular US carotid artery duplex bilateral Mary Garcia APRN-DISPENSING LEAD [address] [place] [address] Referral ID Status Reason Start Date Expiration Date Visits Requested Visits Authorized Authorized Perform Procedure 08/31/2023 08/30/2024 1 1 Specialty Diagnoses / Procedures Referred By Contac t Referred To Contact Diagnoses 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 [place] heart with stable angina pectoris ([facility]/HCC) 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 [place] heart with stable angina pectoris ([facility]/HCC) [I25.118] Procedures WV CORONARY ARTERY BYP W/VEIN & ARTERY GRAFT 2 VEIN CORONARY ARTERY BYPASS GRAFT x3/ LEFT INTERNAL MAMMARY ARTERY/ VEIN Jose Carlos Malagon MD [address] [address] [address] [place] [address] Referral ID Status Reason Start Date Expiration Date Visits Re quested Visits Authorized [id number] 1 1 Specialty Diagnoses / Procedures Referred By Scott t Referred To Contact Diagnoses ACS (acute coronary syndrome) ([facility]) Procedures ECG 12 lead (Ancillary Performed) Mary Garcia, HAND TACKER-DISPENSING LEAD [address] [place] [address] Referral ID Status Reason Start Date Expiration Date V isits Requested Visits Authorized [id number] Authorized 09/21/2023 09/20/2024 1 1 Reason Comments Post-op Ruth is here for a Post-op visit with a CXR prior. He denies any issues with his incision sites not healing. Possible suture sticking out on left forearm. He denies any issues with swelling. Denies any issues with shortness of breath. Specialty Diagnoses / Procedures Referred By Scott t Referred To Contact Radiology Diagnoses S/P CABG x 3 Procedures XR chest 2 views Jose Carlos Malagon MD [address] [address] Referral ID Status Reason Start Date Expiration Date Visits Requested Visits Authorized [id number] Authorized Perform Procedure 09/20/2023 09/19/2024 1 1 Reason Comments 6 month follow up Reason Comments 6 month f/u Reason Comments Follow-up 6 month Specialty Diagnoses / Procedures Referred By Scott t Referred To Contact Primary Care Diagnoses Type 2 diabetes mellitus with other circulatory complication, without long-term current use of insulin (Multi) CAD S/P percutaneous coronary angioplasty HTN (hypertension), benign Hyperlipidemia, unspecified hyperlipidemia type Hypothyroidism, unspecified type Stage 3 chronic kidney disease, unspecified whether stage 3a or 3b CKD (Multi) Procedures Follow Up In Primary Care - Established Zahra Sanchez MD [address] [place] [address] Referral ID Status Reason Start Date Expiration Date V isits Requested Visits Authorized [id number] Authorized 11/05/2023 11/04/2024 1 1 Reason Comments 6 month f/u Specialty Diagnoses / Procedures Referred By Contac t Referred To Contact Diagnoses Irregular heart beat Procedures ECG 12 lead (Clinic Performed) Broderick Morataya MD [address] [place] [address] Phone: tel: fax: Referral ID Status Reason Start Date Expiration Date V isits Requested Visits Authorized [id number] Authorized 01/30/2025 01/30/2026 1 1 Reason Comments Follow-up 6 month check up Specialty Diagnoses / Procedures Referred By Contac t Referred To Contact Primary Care Diagnoses Stage 3a chronic kidney disease (Multi) Type 2 diabetes mellitus with other circulatory complication, without long-term current use of insulin Atherosclerosis of [place] coronary artery of [place] heart, unspecified whether angina present Hyperlipidemia, unspecified hyperlipidemia type Hypothyroidism, unspecified type HTN (hypertension), benign Procedures Follow Up In Primary Care - Established Zahra Sanchez MD [address] [place] [address] Phone: tel: fax: Referral ID Status Reason Start Date Expiration Date V isits Requested Visits Authorized [id number] Authorized 10/17/2024 10/17/2025 1 1 Care Teams (unrecognized sec tion and content) Crnp Relationship Specialty Start Date End Date Christina Maya MD [address] [place], [place] [phone] PCP - General 10/04/18 Crnp Relationship Specialty Start Date End Date Christina Maya MD [address] [place] [address] PCP - General 10/04/18 Crnp Relationship Specialty Start Date End Date Christina Maya MD [address] [place] [address] PCP - General 10/04/18 Crnp Relationship Specialty Start Date End Date Christina Maya MD [address] [place] [address] PCP - General 10/04/18 Crnp Relationship Specialty Start Date End Date Christina Maya MD [address] [place] [address] PCP - General 10/04/18 Crnp Relationship Specialty Start Date End Date Christina Maya MD [address] [place] [address] PCP - General 10/04/18 Crnp Relationship Specialty Start Date End Date Christina Maya MD [address] [place] [address] PCP - General 10/04/18 Crnp Relationship Specialty Start Date End Date Zahra Sanchez MD [facility] [place] [address] PCP - General Family Medicine 07/29/23 Crnp Relationship Specialty Start Date End Date Zahra Sanchez MD [address] [facility] [place] [address] PCP - General Family Medicine 07/29/23 Crnp Relationship Specialty Start Date End Date Zahra Sanchez MD [address] [place] [address] [place] [address] PCP - General Family Medicine 07/29/23 Crnp Relationship Specialty Start Date End Date Zahra Sanchez MD [address] [place] [address] [place] [address] PCP - General Family Medicine 07/29/23 Crnp Relationship Specialty Start Date End Date Zahra Sanchez MD [address] [place] [address] PCP - General Family Medicine 07/29/23 Crnp Relationship Specialty Start Date End Date Zahra Sanchez MD [address] [place] [address] PCP - General Family Medicine 07/29/23 Crnp Relationship Specialty Start Date End Date Zahra Sanchez MD [address] [place] [address] [place] [address] PCP - General Family Medicine 07/29/23 Crnp Relationship Specialty Start Date End Date Zahra Sanchez MD [address] [place] [address] PCP - General Family Medicine 07/29/23 Crnp Relationship Specialty Start Date End Date Zahra Sanchez MD [address] [place] [address] PCP - General Family Medicine 07/29/23 Miguelina Palacio LPN Care Card Fixer 09/20/23 Crnp Relationship Specialty Start Date End Date Zahra Sanchez MD [address] [place] [address] PCP - General Family Medicine 07/29/23 iMguelina Palacio LPN Care Card Fixer 09/20/23 Broderick Morataya MD [address] [facility], [facility] [address] [place] [address] Consulting Physician Cardiology 11/05/23 Jose Carlos Malagon MD [address] [place] [address] Surgeon Cardiothoracic Surgery 11/05/23 Crnp Relationship Specialty Start Date End Date Zahra Sanchez MD [address] [place] [address] PCP - General Family Medicine 07/29/23 Miguelina Palacio LPN Care Card Fixer 09/20/23 Broderick Morataya MD [address] [facility], [facility] [address] [place] [address] Consulting Physician Cardiology 11/05/23 Jose Carlos Malagon MD [address] [place] [address] Surgeon Cardiothoracic Surgery 11/05/23 Crnp Relationship Specialty Start Date End Date Zahra Sanchez [facility] [address] [facility] [place] [address] PCP - General Family Medicine 07/29/23 Miguelina Palacio LPN Care Card Fixer 09/20/23 Broderick Morataya MD [address] [facility], [address] [place] [address] Consulting Physician Cardiology 11/05/23 Jose Carlos Malagon MD [address] [address] Surgeon Cardiothoracic Surgery 11/05/23 Crnp Relationship Specialty Start Date End Date Zahra Sanchez MD [address] [facility] [facility] [place] [address] PCP - General Family Medicine 07/29/23 Zahra Sanchez MD [address] [facility] [place] [address] PCP - O Medicare Advantage PCP 09/16/23 Broderick Morataya MD [address] [facility], [address] [place] [address] Consulting Physician Cardiology 11/05/23 Jose Carlos Malagon MD [address] [facility] [address] [place] [address] Surgeon Cardiothoracic Surgery 11/05/23 Crnp Relationship Specialty Start Date End Date Zahra Sanchez MD [address] [address] PCP - MMO Medicare Advantage PCP 09/16/23 Zahra Sanchez MD [address] [address] PCP - General Family Medicine 05/03/24 Broderick Morataya MD [address] [facility], [facility] [address] [place] [address] Consulting Physician Cardiology 11/05/23 Jose Carlos Malagon MD [address] [address] Surgeon Cardiothoracic Surgery 11/05/23 Crnp Relationship Specialty Start Date End Date Zahra Sanchez MD [address] [address] PCP - MMO Medicare Advantage PCP 09/16/23 Zahra Sanchez MD [address] [address] PCP - General Family Medicine 05/03/24 Broderick Morataya MD [address] [facility], [facility] [address] [place] [address] Consulting Physician Cardiology 11/05/23 Jose Carlos Malagon MD [address] [address] Surgeon Cardiothoracic Surgery 11/05/23 Crnp Relationship Specialty Start Date End Date Zahra Sanchez MD [address] [address] PCP - MMO Medicare Advantage PCP 09/16/23 Zahra Sanchez MD [address] [address] PCP - General Family Medicine 05/03/24 Broderick Morataya MD [address] [facility] [address] [place] [address] Consulting Physician Cardiology 11/05/23 [place] [address] [place] [address] Surgeon Cardiothoracic Surgery 11/05/23 Team Status: Active Member Role Status Dates Dr. Christina Maya MD Family Provider Active Dr. Zahra Sanchez MD Primary Care Provider Act arnav Team Status: Inactive Member Role Status Dates Dr. Zahra Sanchez MD Primary Care Provider Act arnav Start: January 15, 2025 End: January 15, 2025 Dr. Zahra Sanchez MD Referring Provider Active Start: January 15, 2025 End: January 15, 2025 Dr. Gerson Solomon DO Attending Provider Active Start: January 15, 2025 End: January 15, 2025 Crnp Relationship Specialty Start Date End Date Zahra Sanchez MD [address] [address] PCP - MMO Medicare Advantage PCP 09/16/23 Zahra Sanchez MD [address] [address] PCP - General Family Medicine 05/03/24 Broderick Morataya MD [address] [facility], [address] [address] Consulting Physician Cardiology 11/05/23 Jose Carlos Malagon MD [address] [facility], [facility] [address] [place] [address] Surgeon Cardiothoracic Surgery 11/05/23 Crnp Relationship Specialty Start Date End Date Zahra Sanchez MD [address] [facility] [address] [place] [address] PCP - [facility] Medicare Advantage PCP 09/16/23 Zahra Sanchez MD [address] [facility] [address] [place] [address] PCP - General Family Medicine 05/03/24 Broderick Morataya MD [address] [facility], [place] [phone] Consulting Physician Cardiology 11/05/23 Jose Carlos Malagon MD [address], [address] [address] Surgeon Cardiothoracic Surgery 11/05/23 Scheduled Active and Recently Administ ered Medications (unrecognized section and content) Medication Order 09/16/2023 09/17/2023 09/18/2023 acetaminophen (Tylenol) tablet 975 mg 975 mg, oral, Every 6 hours, First dose on Wed09/13/23 at 1300, Recovery & On Unit, Use oral route if available., If ordered PRN for pain, nurse is permitted to administer this medication for higher pain scores based on patient preference? Yes 0300 (Not Given - Provider: Jimi Sorensen RN - Reason: Patient/family refused)0912 (Given - Provider: Jessie Sousa RN)1547 (Given - Provider: Lily Murphy RN)2141 (Given - Provider: Lily Bui RN) 0427 (Given - Provider: Lily Bui RN)1042 (Given - Provider: Inna Pepe RN - Comment: q6h was last given at 5am)1552 (Given - Provider: Inna Pepe RN)2200 (Given - Provider: Nitin Castellanos RN) 0444 (Given - Provider: Nitin Castellanos RN)0804 (Given - Provider: Ajay Martinez RN)1500 (Due - Provider: Melanie Kurtz [facility])2100 (Due - Provider: Melanie Kurtz [facility]) aspirin EC tablet 81 mg 81 mg, oral, Daily, First dose on Wed09/13/23 at 1230, Phase II/On Unit, Do not crush, chew, or split. 0912 (Given - Provider: Jessie Sousa RN) 0853 (Given - Provider: Inna Pepe RN) 0805 (Given - Provider: Ajay Martinez RN) atorvastatin (Lipitor) tablet 40 mg 40 mg, oral, Nightly, First dose on Wed09/13/23 at 2100, Phase II/On Unit 214 (Given - Provider: Lily Bui RN) 2044 (Given - Provider: Nitin Castellanos RN) 2099 (Due) cholecalciferol (Vitamin D-3) tablet 2,000 Units 2,000 Units, oral, 2 times daily, First dose on Wed09/13/23 at 1230, Phase II/On Unit 0900 (Given - Provider: Jessie Sousa RN)2099 (Given - Provider: Lily Bui RN) 09 (Given - Provider: Inna Pepe RN - Comment: scanner would not scan med x 3 attempts)2051 (Given - Provider: Nitin Castellanos RN) 08 (Given - Provider: Ajay Martinez RN)2100 (Due) cyanocobalamin (Vitamin B-12) tablet 1,000 mcg 1,000 mcg, oral, Daily, First dose on Wed09/13/23 at 1230, Phase II/On Unit 0913 (Given - Provider: Jessie Sousa RN) 0916 (Given - Provider: Theresa Estrada RN) 0804 (Given - Provider: Ajay Martinez RN) enoxaparin (Lovenox) syringe 40 mg 40 mg, subcutaneous, Daily, First dose on Wed09/14/23 at 0900, Phase II/On Unit, Hold for Plt < 100 or s/sx of bleeding , Indications: venous thrombosis 0913 (Given - Provider: Jessie Sousa RN) 0915 (Given - Provider: Theresa Estrada RN) 0806 (Given - Provider: Ajay Martinez RN) finasteride (Proscar) tablet 5 mg 5 mg, oral, Daily, First dose on Wed09/13/23 at 1230, Phase II/On Unit, Do not crush, chew, or split. 0912 (Given - Provider: Jessie Sousa RN) 0915 (Given - Provider: Theresa Estrada RN) 0803 (Given - Provider: Ajay Martinez RN) furosemide (Lasix) injection 20 mg 20 mg, intravenous, Every 12 hours, First dose on Wed09/14/23 at 1900 0750 (Given - Provider: Jessie Sousa RN)1808 (Given - Provider: Jessie Sousa RN) 0804 (Given - Provider: Inna Pepe RN - Comment: workflow)1858 (Given - Provider: Inna Pepe RN) 0755 (Given - Provider: Ajay Martinez RN)1900 (Due) gabapentin (Neurontin) capsule 100 mg 100 mg, oral, 3 times daily, First dose on Wed09/13/23 at 1500, Phase II/On Unit, Capsules may be opened and sprinkled on food (eg, applesauce, orange juice, pudding 0912 (Given - Provider: Jessie Sousa RN)1547 (Given - Provider: Lily Murphy RN)2141 (Given - Provider: Lily Bui RN) 0915 (Given - Provider: Theresa Estrada RN)1504 (Given - Provider: Inna Pepe RN)2045 (Given - Provider: Nitin Castellanos RN) 0806 (Given - Provider: Ajay Martinez RN)1500 (Due)2100 (Due) insulin lispro (HumaLOG) injection 0-15 Units (CANCELED) 0-15 Units, subcutaneous, Every 4 hours, First dose on Wed09/13/23 at 1300, Recovery & On Unit, For BG = 0- 70: Notify provider AND initiate hypoglycemia management interventions, For BG = 71-140: zero units (at goal), For BG = 141-180: 5 units, For BG = 181-220: 10 units, For BG = 221-260: 15 units, For BG GREATER 260: Notify provider, Notify provider IF: TWO CONSECUTIVE draws are GREATER than 200 0026 (Given - Provider: Jimi Sorensen RN)0507 (Given - Provider: Jimi Sorensen RN)0914 (Given - Provider: Jessie Sousa, MARIA C)1306 (Given - Provider: Jessie Sousa, MARIA C) insulin lispro (HumaLOG) injection 0-15 Units 0-15 Units, subcutaneous, 4 times daily before meals and nightly, First dose (after last modification) on Zoraida 09/16/23 at 2100, Recovery & On Unit, For BG = 0- 70: Notify provider AND initiate hypoglycemia management interventions, For BG = 71-140: zero units (at goal), For BG = 141-180: 5 units, For BG = 181-220: 10 units, For BG = 221-260: 15 units, For BG GREATER 260: Notify provider, Notify provider IF: TWO CONSECUTIVE draws are GREATER than 200 2143 (Given - Provider: Lily Bui RN) 0804 (Given - Provider: Inna Pepe RN - Comment: workflow)1208 (Given - Provider: Inna Pepe RN - Comment: mealstime now)1730 (Given - Provider: Inna Pepe RN - Comment: trays just arrived on unit)2047 (Given - Provider: Nitin Castellanos RN - Comment: BG 232) 0755 (Given - Provider: Ajay Martinez, MARIA C)1132 (Given - Provider: Ajay Martinez RN)1600 (Due)2100 (Due) ipratropium-albuteroL (Duo-Neb) 0.5-2.5 mg/3 mL nebulizer solution 3 mL (CANCELED) 3 mL, nebulization, 3 times daily RT, First dose (after last modification) on Wed09/15/23 at 0700 0653 (Given - Provider: Leila Campoverde RRT) ipratropium-albuteroL (Duo-Neb) 0.5-2.5 mg/3 mL nebulizer solution 3 mL (CANCELED) 3 mL, nebulization, Every 4 hours RT, First dose (after last modification) on Wed09/16/23 at 1100, When awake 1119 (Given - Provider: Leila Campoverde RRT)1525 (Given - Provider: Leila Campoverde RRT)2003 (Given - Provider: Tex Miguel RRT)2300 (Not Given - Provider: Tex Miguel RRT - Reason: Other - Comment: protocoled) ipratropium-albuteroL (Duo-Neb) 0.5-2.5 mg/3 mL nebulizer solution 3 mL (CANCELED) 3 mL, nebulization, 3 times daily RT, First dose (after last modification) on Wed09/17/23 at 0700, When awake 0741 (Given - Provider: Jermain Blanchard RRT)1306 (Given - Provider: Jermain Blanchard RRT) isosorbide mononitrate ER (Imdur) 24 hr tablet 30 mg 30 mg, oral, Daily, First dose on Wed09/17/23 at 1030, Do not crush, chew, or split. 1135 (Given - Provider: Inna Pepe RN - Comment: pt asleep) 0803 (Given - Provider: Ajay Martinez RN) levothyroxine (Synthroid, Levoxyl) tablet 175 mcg 175 mcg, oral, Weekly, First dose on Wed09/20/23 at 0600, Phase II/On Unit lidocaine 4 % patch 1 patch (COMPLETED) 1 patch, transdermal, Administer over 24 Hours, Every 24 hours, First dose on Wed09/13/23 at 1300, For 5 doses, Recovery & On Unit, Apply to chest next to incision. 1217 (Medication Removed - Provider: Jessie Sousa RN)1305 (Medication Applied - Provider: Jessie Sousa RN) 1259 (Medication Removed - Provider: Inna Brann, RN)1357 (Medication Applied - Provider: Inna Pepe RN) 1259 (Medication Removed - Provider: Ajay Martinez RN) magnesium oxide (Mag-Ox) tablet 400 mg 400 mg, oral, Daily, First dose on Wed09/13/23 at 1230, Phase II/On Unit 0912 (Given - Provider: Jessie Sousa RN) 0915 (Given - Provider: Theresa Estrada RN) 0803 (Given - Provider: Ajay Martinez RN) melatonin tablet 5 mg 5 mg, oral, Nightly, First dose on 09/18/23 at 0145 0143 (Given - Provider: Nitin Castellanos RN)2100 (Due) metOLazone (Zaroxolyn) tablet 2.5 mg (COMPLETED) 2.5 mg, oral, Once, On Wed09/17/23 at 1030, For 1 dose 1135 (Given - Provider: Inna Pepe RN) metoprolol tartrate (Lopressor) tablet 25 mg (CANCELED) 25 mg, oral, 2 times daily, First dose on Wed09/15/23 at 1015 0912 (Given - Provider: Jessie Sousa RN) metoprolol tartrate (Lopressor) tablet 50 mg 50 mg, oral, 2 times daily, First dose (after last modification) on Wed09/16/23 at 1215 1218 (Given - Provider: Jessie Sousa RN)2141 (Given - Provider: Lily Bui RN) 0916 (Given - Provider: Theresa Estrada RN)2045 (Given - Provider: Nitin Castellanos RN) 0805 (Given - Provider: Ajay Martinez RN)2100 (Due) pantoprazole (ProtoNix) EC tablet 40 mg(Linked Group 1) 40 mg, oral, Daily before breakfast, First dose on Wed09/14/23 at 0700, Recovery & On Unit, Do not crush, chew, or split. 0750 (Given - Provider: Jessie Sousa RN) 0818 (Given - Provider: Inna Pepe RN - Comment: workflow) 0805 (Given - Provider: Ajay Martinez RN) psyllium (Metamucil) 1 packet 1 packet, oral, Daily, First dose on Wed09/13/23 at 1230, Phase II/On Unit, Bowel Regimen - for prevention of constipation. 0913 (Given - Provider: Jessie Sousa RN) 0818 (Given - Provider: Inna Pepe, MARIA C) 0803 (Given - Provider: Ajay Martinez, MARIA C) sennosides-docusate sodium (Natasha-Colace) 8.6-50 mg per tablet 2 tablet 2 tablet, oral, 2 times daily, First dose on Wed09/13/23 at 1230, Phase II/On Unit, Bowel Regimen - for prevention of constipation Hold for loose stools 0912 (Given - Provider: Jessie Sousa, MARIA C)2140 (Given - Provider: Lily Bui RN) 0913 (Given - Provider: Theresa Estrada, MARIA C)2045 (Given - Provider: Nitin Castellanos RN) 0803 (Given - Provider: Ajay Martinez, MARIA C)2100 (Due) tamsulosin (Flomax) 24 hr capsule 0.4 mg 0.4 mg, oral, Daily, First dose on Wed09/13/23 at 1230, Phase II/On Unit, Give 30 minutes after the same mealtime each day. Capsules should be swallowed whole; do not crush, chew, or open. 0912 (Given - Provider: Jessie Sousa RN) 0914 (Given - Provider: Theresa Estrada RN) 0804 (Given - Provider: Ajay Martinez, MARIA C) PRN Medication Order 09/16/2023 09/17/2023 09/18/2023 albumin human 5 % infusion 12.5 g 12.5 g, intravenous, at 250 mL/hr, Administer over 60 Minutes, As needed, For hemodynamic instability / hypotension, Starting on Wed09/13/23 at 1225, For 2 doses, Phase II/On Unit, Recommended infusion rate 2-4 mL/min., Was crystalloid challenge performed and/or failed? Yes, Is albumin required for cardiac surgery? Yes benzocaine-menthol (Cepastat Sore Throat) 15-3.6 mg lozenge 1 lozenge 1 lozenge, Mouth/Throat, Every 2 hour PRN, sore throat, Starting on Wed09/16/23 at 0739 benzonatate (Tessalon) capsule 100 mg 100 mg, oral, 3 times daily PRN, cough, Starting on Wed09/17/23 at 0857, Do not crush or chew. 1504 (Given - Provider: Inna Pepe, RN)2234 (Given - Provider: Nitin Castellanos, RN) 0619 (Given - Provider: Nitin Castellanos, RN) dextrose 50 % injection 25 g(Linked Group 2) 25 g, intravenous, Every 15 min PRN, low blood sugar - see comments, For BG 70 mg/dL or LESS & HAS IV access, Starting on Wed09/13/23 at 1246, Recovery & On Unit, IF patient HAS a secure IV access & is Unconscious, Conscious, NPO or Unable to Eat or Drink. Give IV Push at 2-3 mL/minute. Repeat every 15 minutes until BG reaches 100 mg/dL or greater, then DISCONTINUE. electrolyte-A (Plasmalyte-A) solution 1,000 mL 1,000 mL, intravenous, As needed, For hemodynamic instability / hypotension, Starting on Wed09/13/23 at 1225, For 2 doses, Phase II/On Unit fentaNYL PF (Sublimaze) injection 25 mcg 25 mcg, intravenous, Every 1 hour PRN, pain breakthrough, Starting on Wed09/13/23 at 1225, Phase II/On Unit glucagon (Glucagen) injection 1 mg(Linked Group 2) 1 mg, intramuscular, Every 15 min PRN, low blood sugar - see comments, For BG 70 mg/dL or LESS & NO IV access, Starting on Wed09/13/23 at 1246, Recovery & On Unit, IF patient DOES NOT have secure IV access & is Unconscious, Conscious, NPO or Unable to Eat or Drink. Repeat every 15 minutes until BG reaches 100 mg/dL or greater, then DISCONTINUE. guaiFENesin (Robitussin) 100 mg/5 mL syrup 200 mg 200 mg, oral, Every 4 hours PRN, congestion, Starting on Wed09/16/23 at 0740 0749 (Given - Provider: Jessie Sousa, MARIA C) 0427 (Given - Provider: Lily Bui, MARIA C)0916 (Given - Provider: Theresa Estrada, MARIA C)2048 (Given - Provider: Nitin Castellanos, RN) 0444 (Given - Provider: Nitin Castellanos RN) ipratropium-albuteroL (Duo-Neb) 0.5-2.5 mg/3 mL nebulizer solution 3 mL 3 mL, nebulization, Every 2 hour PRN, shortness of breath, wheezing, Starting on Wed09/14/23 at 1859 1911 (Canceled Entry - Provider: Nitin Castellanos RN - Comment: See MAR for admin by RT.)2151 (Given - Provider: Rayray Coyle, TECH[employer]ICAL CUST[employer]ER SUPPORT SPECIALIST) magnesium sulfate IV 2 g 2 g, intravenous, at 50 mL/hr, Administer over 1 Hours, Every 6 hours PRN, magnesium level 1.7-1.9 mg/dL, Starting on Wed09/13/23 at 1226, Phase II/On Unit 0917 (New Bag - Provider: Jessie Sousa RN)1017 (Stopped - Provider: Jessie Sousa RN) magnesium sulfate IV 4 g 4 g, intravenous, at 50 mL/hr, Administer over 2 Hours, Every 6 hours PRN, magnesium level 1.4 - 1.6 mg/dL, Starting on Wed09/13/23 at 1226, Phase II/On Unit 0800 (New Bag - Provider: Ajay Martinez RN)1000 (Stopped - Provider: Ajay Martinez RN) metoclopramide (Reglan) injection 10 mg(Linked Group 3) 10 mg, intravenous, Every 6 hours PRN, nausea/vomiting, second line, Starting on Wed09/13/23 at 1226, Phase II/On Unit, Give IV if patient is unable to take orally. metoclopramide (Reglan) tablet 10 mg(Linked Group 3) 10 mg, oral, Every 6 hours PRN, nausea/vomiting, 2nd line, Starting on Wed09/13/23 at 1226, Phase II/On Unit, 2nd Line. If inadequate response within 60 minutes, proceed to next-line agent or contact provider if no further options ordered. naloxone (Narcan) injection 0.2 mg 0.2 mg, intravenous, Every 5 min PRN, respiratory depression, Starting on Wed09/13/23 at 1246, Recovery & On Unit, If respiratory rate is less than 8 breaths/minute or patient is difficult to arouse stop any narcotics and contact physician. Administer slow IV push. Repeat as ordered until patient's respiratory rate is greater than 12 breaths/minute. ondansetron (Zofran) injection 4 mg(Linked Group 4) 4 mg, intravenous, Every 8 hours PRN, nausea/vomiting, first line, Starting on Wed09/13/23 at 1226, Phase II/On Unit, 1st Line. Give IV if patient is unable to take orally. If inadequate response within 60 minutes, proceed to next-line agent for same PRN reason or contact provider if no further options ordered. When administering via IV Push, administer over 3-5 minutes. ondansetron (Zofran) tablet 4 mg(Linked Group 4) 4 mg, oral, Every 8 hours PRN, nausea/vomiting, first line, Starting on Wed09/13/23 at 1226, Phase II/On Unit, 1st Line. Use oral route first, if possible. If inadequate response within 60 minutes, proceed to next-line agent for same PRN reason or contact provider if no further options ordered. oxyCODONE (Roxicodone) immediate release tablet 10 mg 10 mg, oral, Every 6 hours PRN, pain severe (7-10), first line, Starting on Wed09/13/23 at 1225, Phase II/On Unit, If ordered PRN for pain, nurse is permitted to administer this medication for higher pain scores based on patient preference? Yes oxyCODONE (Roxicodone) immediate release tablet 5 mg 5 mg, oral, Every 6 hours PRN, pain moderate (4-6), first line, Starting on Wed09/13/23 at 1225, Phase II/On Unit, If ordered PRN for pain, nurse is permitted to administer this medication for higher pain scores based on patient preference? Yes 1131 (Given - Provider: Ajay Martinez, MARIA C) oxygen (O2) therapy inhalation, Continuous PRN - O2/gases, other, Starting on Wed09/13/23 at 1715, Device: Nasal Cannula, Rate in liters per minute: 3 LPM, Keep O2 Sat Above: 92% 0653 (Rate/Dose Change - Provider: Leila Campoverde, TECHNICAL CUSTOMER SUPPORT SPECIALIST) potassium chloride 20 mEq in 100 mL IV premix 20 mEq, intravenous, at 100 mL/hr, Administer over 1 Hours, Every 1 hour PRN, Potassium level 3.8 - 3.9 mmol/L and unable to take oral medications, Starting on Wed09/13/23 at 1225, Phase II/On Unit potassium chloride 40 mEq in 100 mL IV premix 40 mEq, intravenous, at 50 mL/hr, Administer over 2 Hours, Every 2 hour PRN, Potassium level 3.6 - 3.7 mmol/L and unable to take oral medications, Starting on Wed09/13/23 at 1226, Phase II/On Unit, For central line administration only. Linked Groups Order Group 1: pantoprazole (ProtoNix) EC tablet 40 mgJump to med 40 mg, oral, Daily before breakfast, First dose on Wed09/14/23 at 0700, Recovery & On Unit
Do not crush, chew, or split.
Or pantoprazole (ProtoNix) injection 40 mg (CANCELED) 40 mg, intravenous, Administer over 2 Minutes, Daily before breakfast, First dose on Wed09/14/23 at 0700, Recovery & On Unit
Give if unable to take by mouth. Reconstitute with 10 mL sodium chloride 0.9% for injection. Push over 2 minutes.
Group 2: dextrose 50 % injection 25 gJump to med 25 g, intravenous, Every 15 min PRN, low blood sugar - see comments, For BG 70 mg/dL or LESS & HAS IV access, Starting on Wed09/13/23 at 1246, Recovery & On Unit
IF patient HAS a secure IV access & is Unconscious, Conscious, NPO or Unable to Eat or Drink. Give IV Push at 2-3 mL/minute. Repeat every 15 minutes until BG reaches 100 mg/dL or greater, then DISCONTINUE.
Or glucagon (Glucagen) injection 1 mgJump to med 1 mg, intramuscular, Every 15 min PRN, low blood sugar - see comments, For BG 70 mg/dL or LESS & NO IV access, Starting on Wed09/13/23 at 1246, Recovery & On Unit
IF patient DOES NOT have secure IV access & is Unconscious, Conscious, NPO or Unable to Eat or Drink. Repeat every 15 minutes until BG reaches 100 mg/dL or greater, then DISCONTINUE.
Group 3: metoclopramide (Reglan) tablet 10 mgJump to med 10 mg, oral, Every 6 hours PRN, nausea/vomiting, 2nd line, Starting on Wed09/13/23 at 1226, Phase II/On Unit
2nd Line. If inadequate response within 60 minutes, proceed to next-line agent or contact provider if no further options ordered.
Or metoclopramide (Reglan) injection 10 mgJump to med 10 mg, intravenous, Every 6 hours PRN, nausea/vomiting, second line, Starting on Wed09/13/23 at 1226, Phase II/On Unit
Give IV if patient is unable to take orally.
Group 4: ondansetron (Zofran) tablet 4 mgJump to med 4 mg, oral, Every 8 hours PRN, nausea/vomiting, first line, Starting on Wed09/13/23 at 1226, Phase II/On Unit
1st Line. Use oral route first, if possible. If inadequate response within 60 minutes, proceed to next-line agent for same PRN reason or contact provider if no further options ordered.
Or ondansetron (Zofran) injection 4 mgJump to med 4 mg, intravenous, Every 8 hours PRN, nausea/vomiting, first line, Starting on Wed09/13/23 at 1226, Phase II/On Unit
1st Line. Give IV if patient is unable to take orally. If inadequate response within 60 minutes, proceed to next-line agent for same PRN reason or contact provider if no further options ordered. When administering via IV Push, administer over 3-5 minutes.
Goals (unrecognized section and content) Goals may be documented in a n alternate section FOR RECORDS PERTAINING TO PATIENTS WHO ARE OR HAVE BEEN ENROLLED IN A CHEMICAL DEPENDENCY/SUBSTANCEABUSE PROGRAM, SOME INFORMATION MAY BE OMITTED. This clinical summary was aggregated from multiple sources. Caution should be exercised in using it in the provision of clinical care. This summary normalizes information from multiple sources, and as a consequence, information in this document may materially change the coding, format and clinical context of patient data. In addition, data may be omitted in some cases. CLINICAL DECISIONS SHOULD BE BASED ON THE PRIMARY CLINICAL RECORDS. [facility]. provides no warranty or guarantee of the accuracy or completeness of information in this document.
--- NOTE | 2025-06-13 07:53 | PRE.ANES_ITS ---
ASA Classification* ASA Classification ASA Classification: 2 Assessment & Plan Anesthesia* Anesthesia Assessment Anesthesia Assessment: Discussed sedation and/or anesthesia options, risks, benefits, and alternatives with patient/parents/legal guardian/POA. Questions invited. The patient/parents/legal guardian/POA seems to understand and agrees to proceed with anesthesia plan. Reviewed the physical assessment, medical history, allergy history and patient home medications list prior to surgery/procedure/anesthetic and documented any changes. Performed airway and anesthesia risk assessments. Anesthesia Type Anesthesia Type: General Anesthesia Focused Assessment* Airway Assessment Mouth opens: >3 cm Mallampati Score: II Labs Anesthesia Preop lab: CBC WBC, (4.4-11.0) 10.4 K/mm3 12/03/15, 02:18 RBC, (4.6-6.2) 3.65 M/mm3 L 12/03/15, 02:18 Hgb, (13.0-16.5) 12.0 g/dl L 12/03/15, 02:18 Hct, (40-54) 35.4 % L 12/03/15, 02:18 Plt Count, (150-450) 253 K/mm3 12/03/15, 02:18 CHEMISTRY Potassium, (3.5-5.1) 4.8 mmol/L 12/03/15, 02:18 Sodium, (136-145) 139 mmol/L 12/03/15, 02:18 BUN, (7-18) 40 mg/dL H 12/03/15, 02:18 Creatinine, (0.70-1.30) 2.95 mg/dL H 12/03/15, 02:18 Glucose, (70-110) 197 mg/dL H 12/03/15, 02:18 POC Glucose, (70-110) 196 mg/dL H 12/13/15, 08:53 COAG Pre-Assessment Diagnosis/Proposed Procedure Planned Operative Procedure(s): TURP Anesthesia History Anesthesia History - portable track line marker: Anesthesia History - portable track line marker Hx Hospitalization No 06/12/25 13:58 Any Problems With Anesthesia Yes: COMBATIVE 06/12/25 13:58 Cholinesterase deficiency No 06/12/25 13:58 You/Your Family Experience No 06/12/25 13:58 fever (hyperthermia) with Relationship Recent Exposure to Contagious No 01/03/25 14:52 Disease Does patient have nerve No 06/12/25 13:58 stimulator Patient instructed to have device shut off --Does patient have Pacemaker or ICD? When Was Last Pacemaker Check QUESTION #4 FULL TEXT: You/Your Family Experience fever (hyperthermia) with Anesthesia Last Oral Intake Last Oral intake: Last Oral Intake NPO since Meds taken in AM with sips of water? Meds patient instructed to take am of surgery PONV PONV - portable track line marker: PONV - portable track line marker Female No 06/12/25 13:58 HX of Motion Sickness No 06/12/25 13:58 HX of N/V After Surgery No 06/12/25 13:58 Non-Smoker Yes 06/12/25 13:58 Duration of Surgery greater Yes 06/12/25 13:58 than 60 minutes Number of Risk Factors 2 06/12/25 13:58 PONV Score Moderate Risk 06/12/25 13:58 Height & Weight Height & Weight: Anesthesia: Height & Weight Height 5 ft 7 in 01/15/25 14:43 Respiratory Assessment Respiratory Assessment - portable track line marker: Respiratory Tract Infection Hx - portable track line marker Hx Respiratory Tract Infection No 06/12/25 13:58 STOP Sleep Apnea STOP Sleep Apnea - portable track line marker: STOP Sleep Apnea - portable track line marker Hx Hypertension Yes: CONTROLLED WITH MED 06/12/25 13:58 Hx Sleep Apnea Yes 06/12/25 13:58 CPAP Yes: NONCOMPLIANT 06/12/25 13:58 BIPAP No 06/12/25 13:58 Do you snore loudly (louder than talking or can be heard Do you often feel tired/ fatigued/ sleepy during daytime? Has anyone observed you stop breathing during sleep? STOP Results Positive 06/12/25 13:58 QUESTION #5 FULL TEXT : Do you snore loudly (louder than talking or can be heard through closed doors)? Tobacco Use History Tobacco Use History - portable track line marker: Tobacco Use History - portable track line marker Tobacco Use Smoking Status Never smoker 06/12/25 13:58 Hx Tobacco Use No 06/12/25 13:58 Years Smoking Packs Smoked per Day Smoking Cessation Date was within the last 15 years Hx Smoking Cessation Date Hx Smoking Cessation Counseling Hematologic Medial History Hematologic Hx - portable track line marker: Hematologic Medical Hx - bridge tender Hx of Blood Transfusion No 06/12/25 13:58 Hx of Transfusion in last 3 No 06/12/25 13:58 Months Date of Last Transfusion (if within last 3 months) Ever experience any problems No 06/12/25 13:58 with transfusion(s)? 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 confused, unrespo /Reproduction History /Reproductive History - portable track line marker: /Reproductive Hx- portable track line marker Hx Now No 06/12/25 13:58 Gestational Age (in weeks): EDC: Hx Hx Para Hx Section SAB No 06/12/25 13:58 Active Medications Active Medications: Current Medications Generic Name Dose Route Start Last Admin Trade Name Freq PRN Reason Stop Dose Admin Cefazolin Sodium 2 gm/ Sodium 110 mls @ 200 mls/hr 06/13/25 09:45 Chloride IV 06/13/25 10:17 INTRAOP ONE Lactated Ringer's 1,000 mls @ 15 mls/hr 06/13/25 07:45 IV .Q48H JOHNNY PFSH Medical History Wears contact lenses Wears glasses Wears partial dentures Wears dentures Thyroid disease Diabetes Arthritis Prostate disease Anemia High cholesterol Restless legs Back pain Non-smoker CPAP (continuous positive airway pressure) dependence History of pain when walking History of echocardiogram History of stress test Cardiology follow-up encounter Hypertension Home Medications ?Medication ?Instructions ?Recorded ?Last Taken ?Type aspirin 81 mg chewable tablet 81 mg PO DAILY@0800 HEAR T HEALTH 11/08/15 06/09/25 History cyanocobalamin (vitamin B-12) 500 1,000 mcg PO DAILY@0 800 SUPPLEMENT 11/08/15 06/12/25 History mcg tablet glipizide 5 mg tablet 5 mg PO BID DIABETES 6 06/12/25 History tamsulosin 0.4 mg capsule 0.4 mg PO BID PROSTATE 11/0706/12/25 History atorvastatin 80 mg tablet 80 mg PO QDAY CHOLESTEROL 06/12/25 History finasteride 5 mg tablet 5 mg PO BID PROSTATE 5 06/12/25 History isosorbide mononitrate 30 mg 30 mg PO QDAY HEART 01/1506/13/25 History tablet,extended release 24 hr levothyroxine 175 mcg tablet 875 mcg PO MO THYROID 10/1006/11/25 History lisinopril 5 mg tablet 5 mg PO QDAY BP 01/15/25 History magnesium oxide 400 mg PO QDAY SUPPLEMENT 06/12/25 History metformin 500 mg tablet,extended 500 mg PO BID DIABETE S 01/15/25 06/12/25 History release 24 hr metoprolol succinate 100 mg 100 mg PO QHS HEART Unknown History tablet,extended release 24 hr calcium carbonate 600 mg PO QHS SUPPLEMENT 06/12/25 History cholecalciferol (vitamin D3) 50 50 mcg PO BID SUPPLEME NT 06/12/25 06/12/25 History mcg (2,000 unit) capsule (Vitamin D3) Allergy/AdvReac Type Severity Reaction Status Date / Time No Known Allergies Allergy Verified 06/13/25 07:48 Family History Other Cancer Heart disease Surgical History History of cardiac catheterization Hx of colonoscopy Hx of lithotripsy History of coronary artery stent placement History of back surgery History of open heart surgery Social History household members: spouse Smoking Status: Never smoker alcohol intake: never Review of Systems (Anesthesia) ROS Narrative System reviewed and no additional complaints, except as documented.
[2025-06-13] MEDS: Lactated Ringers 1,000 ML 15 ML IV (07:54)
--- NOTE | 2025-06-13 09:45 | PROS_PTH ---
PATIENT: RUTH MACKEY LOC: MS3 U#:[id number] AGE/SX: 79/M ROOM: [facility] – [place], [place] RE06/13/[address]: Dr. Heber Patel MD : 1945 BED: 1 DIS: 06/14/2025 SPEC #: [id number] RECD: 06/13/25 11:42 STATUS: TYRESE REPrem #: [id number] LEEANNA: 06/13/25 09:[address]: Heber Patel DEPT: SURGICAL PATHOLOGY RECD BY: Cory Seo ENTERED: 06/13/25 15:55 SP TYPE: TURP OTHR DR: Dr. Zahra Adams MD Tissues: A - Prostate, NOS Procedures: Surgery Specimen Level IV HEADER OPERATION: Cysto, transurethral resection of prostate PRE-OP DIAGNOSIS: Benign prostatic hyperplasia TISSUE SUBMITTED: A- Prostate chips MICROSCOPIC DIAGNOSIS A. Prostate, transurethral resection prostate: - Fibromuscular stroma with chronically inflamed urothelium. - No prostate glands seen. - Fragments of vegetable matter. MICROSCOPIC DESCRIPTION Slides are reviewed. GROSS DESCRIPTION A. Received in formalin labeled with the patient's name and date of . Designated as prostate chips is a <1 g, 2.5 x 0.8 x 0.2 cm aggregate of almeida to brown, cauterized tissue fragments and 3 romo metallic clamps. The tissue fragments are entirely submitted in 1 cassette. KS 5CPT:[id number]
[2025-06-13] MEDS: Cefazolin 1 GM/5 ML Vial 2 GM IV (10:11)
[2025-06-13] MEDS: fentaNYL 100 MCG/2 ML Ampul IV (10:21)
[2025-06-13] MEDS: Lidocaine 1% (5 ml sdv) 5 ML Vial IV (10:21)
--- NOTE | 2025-06-13 11:10 | PCM.DC ---
Discharge Instructions DC O2, CPAP, BIPAP needs Home O2 Discharge instructions: No Dressing / Incision Discharge Activity: Return to Normal Activity and May Not Drive (while taking narcotic pain medications.) Dressing / Incision Call your doctor if you observe: Fever of 101 or Higher Follow Up Care Please Follow Up With: Heber Patel MD When: Call [phone] for an appointment Test Results: Test results from this visit will be discussed in further detail at your follow-up appointment, if applicable. Discharge Plan Admission Primary Reason for Your Visit: turp Attending Provider: Heber Patel Primary Care Provider: Zahra Adams Instructions Print Language: [place] Citizen Discharge Orders/Prescriptions Prescriptions: Continued magnesium oxide 400 mg magnesium tablet 400 mg PO QDAY isosorbide mononitrate 30 mg tablet extended release 24 hr 30 mg PO QDAY lisinopril 5 mg tablet 5 mg PO QDAY metoprolol succinate 100 mg tablet extended release 24 hr 100 mg PO QHS atorvastatin 80 mg tablet 80 mg PO QDAY levothyroxine 175 mcg tablet 875 mcg PO MO metformin 500 mg tablet extended release 24 hr 500 mg PO BID cyanocobalamin (vitamin B-12) 500 MCG tablet 1,000 mcg PO DAILY@0800 Patient Comments: SUPPLEMENT glipizide 5 MG tablet 5 mg PO BID Patient Comments: DIABETES calcium carbonate 600 mg calcium (1,500 mg) tablet 600 mg PO QHS cholecalciferol (vitamin D3) [Vitamin D3] 50 mcg (2,000 unit) capsule 50 mcg PO BID Held aspirin 81 MG tablet,chewable 81 mg PO DAILY@0800 Hold Instructions: Resume on 06/27/25. Patient Comments: HEART HEALTH Discontinued finasteride 5 mg tablet 5 mg PO BID tamsulosin 0.4 MG capsule 0.4 mg PO BID Patient Comments: URINE FLOW Referrals / Follow Up: Heber Patel MD [Med Staff - Active Staff, Urology] Zahra Adams MD [Primary Care Provider, Medical] Disposition Disposition (needs filled in before D/C Order can be placed): Home, Self Care
--- NOTE | 2025-06-13 11:10 | PCM.OPRPT ---
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: No Type of Anesthesia: General RN Documented Start/Stop Times: Operation Date: 06/13/25 09:45 Case Time Into Pre-Op 06/13/25 07:40 Anesthesia Start 06/13/25 10:09 Into Room 06/13/25 10:09 Procedure Start 06/13/25 10:27 Procedure Start Time: : Procedure Stop Time: 11:11 Select all DRAINS/GRAFTS/IMPLANTS that apply: Drains Drain details: 22 Belgian three-way Ortega Estimated Blood Loss: Minimal Specimen collected: Yes Description of specimen(s) removed: Prostate tissue and clips Description of surgery: This is a 79-year-old male who about 6 or 7 years ago had a UroLift procedure for BPH with obstruction worked fairly well for him for several years but now he is having more difficulty emptying the bladder frequency urgency problems going to the bathroom on cystoscopy is found to have significant obstruction of the prostate so today we will plan to proceed with a TURP to open the prostate and then use the button ServerEngines to do this Patient was taken back to the operating room and a smooth duction of anesthesia was placed in dorsolithotomy position within the bladder with a 26 Belgian continuous-flow resectoscope I then used the button on the Olympus bipolar resectoscope and started shaving open the prostate shaved open the entire prostate as I was going through a came across UroLift clips these were then removed piece by piece I got all 6 clips out and then continued shaved and open the prostate at the end of the procedure had a nice wide open channel did a flow test had a great flow cauterize extensively obtain hemostasis we then placed a catheter in the bladder all the chips were Ellik out of the bladder and put the catheter in continuous irrigation surgery took about an hour and he was taken back to PACU in good condition Surgical Findings: UroLift clips were removed and prostate resected open nice open flow Complications Complications: No Admit VTE Documentation VTE Present on Admission: No VTE Mechan Device Prophylaxis: SCD's VTE Pharm Prophylaxis ordered?: No
--- NOTE | 2025-06-13 11:42 | PCM.POST.ANE ---
Anesthesia: Postop Eval I Current Vital Signs Temperature: 97.5 F Pulse Rate: 105 Blood Pressure: 160/85 Respiratory Rate: 18 Pulse Ox: 94 Oxygen Delivery Method: Nasal Cannula Oxygen Flow Rate (L/min): 2 Assessment Airway patent: Yes Spontaneous unlabored respirations: Yes Mental status: Awake and Apprehensive nausea: No Vomiting: No Anesthesia Complication: No Fluid Hydration Crystalloid volume administer (ml): 700 Total IV fluid infused: 700 Progress Note Anesthesia document: Postop Eval 1 completed: Yes
--- NOTE | 2025-06-13 14:07 | POSTOPAN2_ITS ---
Anesthesia Postop Eval I Sum Postop Eval Completion status Anesthesia document: Postop Eval 1 completed: Yes Anesthesia Postop Eval I Summary Anesthesia Postop Eval I Summary: Anesthesia Postop Eval I: Assessment Summary Airway patent Yes 06/13/25 11:43 AGRICULTURAL LABOR CAMP MANAGER.GDOTT Spontaneous unlabored Yes 06/13/25 11:43 AGRICULTURAL LABOR CAMP MANAGER.GDOTT respirations Mental status Awake,Apprehensive 06/13/25 11:43 AGRICULTURAL LABOR CAMP MANAGER.GDOTT nausea No 06/13/25 11:43 AGRICULTURAL LABOR CAMP MANAGER.GDOTT Vomiting No 06/13/25 11:43 AGRICULTURAL LABOR CAMP MANAGER.GDOTT Anesthesia Postop Eval I: Fluid Summary Crystalloid volume administer 700 06/13/25 11:43 AGRICULTURAL LABOR CAMP MANAGER.GDOTT (ml) Colloids volume administered ( ml) Blood Product volume administered (ml) Total IV fluid infused 700 06/13/25 11:43 AGRICULTURAL LABOR CAMP MANAGER.GDOTT Anesthesia Postop Eval I: Summary Notes Anesthesia Complication No 06/13/25 11:43 AGRICULTURAL LABOR CAMP MANAGER.GDOTT Anesthesia Complication Comment: Post-operative progress note Anesthesia: Postop Eval II Evaluation Mental status: Awake Pain Level: 0 nausea: No Vomiting: No
--- NOTE | 2025-06-13 14:07 | PCM.POSTANE2 ---
Anesthesia Postop Eval I Sum Postop Eval Completion status Anesthesia document: Postop Eval 1 completed: Yes Anesthesia Postop Eval I Summary Anesthesia Postop Eval I Summary: Anesthesia Postop Eval I: Assessment Summary Airway patent Yes 06/13/25 11:43 GUEST RELATIONS COORDINATOR.GDOTT Spontaneous unlabored Yes 06/13/25 11:43 GUEST RELATIONS COORDINATOR.GDOTT respirations Mental status Awake,Apprehensive 06/13/25 11:43 GUEST RELATIONS COORDINATOR.GDOTT nausea No 06/13/25 11:43 GUEST RELATIONS COORDINATOR.GDOTT Vomiting No 06/13/25 11:43 GUEST RELATIONS COORDINATOR.GDOTT Anesthesia Postop Eval I: Fluid Summary Crystalloid volume administer 700 06/13/25 11:43 GUEST RELATIONS COORDINATOR.GDOTT (ml) Colloids volume administered ( ml) Blood Product volume administered (ml) Total IV fluid infused 700 06/13/25 11:43 GUEST RELATIONS COORDINATOR.GDOTT Anesthesia Postop Eval I: Summary Notes Anesthesia Complication No 06/13/25 11:43 GUEST RELATIONS COORDINATOR.GDOTT Anesthesia Complication Comment: Post-operative progress note Anesthesia: Postop Eval II Evaluation Mental status: Awake Pain Level: 0 nausea: No Vomiting: No
[2025-06-13] MEDS: 0.9% Normal Saline (1000mL) 1,000 ML 125 ML IV ×2 (14:10→22:13)
[2025-06-13] MEDS: Cefazolin 1 GM/50 ML BAG IV (17:30)
[2025-06-13] MEDS: metFORMIN (XR) 500 MG Tablet PO (17:30)
[2025-06-13] MEDS: Metoprolol(XL)Succ 100 MG Tablet PO (20:06)
[2025-06-13] MEDS: 0.9% Saline Lock 10 ML Syringe IV (20:16)
[2025-06-14] MEDS: Cefazolin 1 GM/50 ML BAG IV (01:33)
[2025-06-14] MEDS: 0.9% Saline Lock 10 ML Syringe IV (01:45)
[2025-06-14 01:55] VITALS: BP 124/78; PULSE 74; RESP 16; TEMP 36.1; O2SAT 98
[2025-06-14 05:53] VITALS: BP 123/64; PULSE 68; RESP 16; TEMP 36.1; O2SAT 93
[2025-06-14] MEDS: metFORMIN (XR) 500 MG Tablet PO (07:53)
[2025-06-14 09:39] VITALS: BP 126/71; PULSE 73; RESP 18; TEMP 36.2; O2SAT 94
--- NOTE | 2025-06-14 13:23 | PHA.DC.MR.R ---
Pharmacy IN Med Reconciliation Pharmacy Service has performed discharge medication reconciliation for this patient. The patient's discharge medication list was reviewed for discrepancies and discrepancies were resolved. Medications at Discharge Home Medications aspirin 81 mg chewable tablet 81 mg PO DAILY@0800 HEART HEALTH 11/08/15 Held on 06/13/25. Instructions: Resume on 06/27/25. cyanocobalamin (vitamin B-12) 500 mcg tablet 1,000 mcg PO DAILY@0800 SUPPLEMENT 11/08/15 glipizide 5 mg tablet 5 mg PO BID DIABETES 11/08/15 atorvastatin 80 mg tablet 80 mg PO QDAY CHOLESTEROL 01/15/25 isosorbide mononitrate 30 mg tablet,extended release 24 hr 30 mg PO QDAY HEART 01/15/25 levothyroxine 175 mcg tablet 175 mcg PO DAILY THYROID 01/15/25 lisinopril 5 mg tablet 5 mg PO QDAY BP 01/15/25 magnesium oxide 400 mg PO QDAY SUPPLEMENT 01/15/25 metformin 500 mg tablet,extended release 24 hr 500 mg PO BID DIABETES 01/15/25 metoprolol succinate 100 mg tablet,extended release 24 hr 100 mg PO QHS HEART 01/15/25 calcium carbonate 600 mg PO QHS SUPPLEMENT 06/12/25 cholecalciferol (vitamin D3) 50 mcg (2,000 unit) capsule (Vitamin D3) 50 mcg PO BID SUPPLEMENT 06/12/25
[2025-06-14 14:19] VITALS: BP 113/45; PULSE 64; RESP 18; TEMP 36.6; O2SAT 95
--- NOTE | 2025-06-14 14:41 | CHAPLAIN ---
Type of Pastoral Visit _x__ Initial Visit ___ Follow-up Visit ___ On-call Visit ___ General Patient Visit ___ Spiritual Assessment ___ Family Conference ___ Bereavement ___ Rapid Response ___ Code Blue ___ Other (describe below) Pastoral Care Referral From _x__ Patient ___ Family ___ Nurse ___ Physician ___ Spinning Supervisor ___ Factory Laborer ___ Other (describe below) Sacrament/Intervention ___ Active listening ___ Anointing ___ Mandaen ___ Bereavement ___ Communion ___ Maddison exploration ___ ___ Life review ___ Prayer ___ Reconciliation ___ Sacrament of Sick _x__ Supportive presence ___ Wedding ___ Other (describe below) Pastoral Comments patient has been visited twice but neither time is he available due to patient care and bathroom needs; pt talks through bathroom door as family members are in the room; acknowledged that this filter pulp washer is available as desired or needed; pt gives thanks for offer and showing up
--- NOTE | 2025-06-14 14:49 | CASEMGMT ---
MENDEZ Met with patient to complete MENDEZ form. MENDEZ form and its content were verbally explained and patient's questions were answered to the best of my ability.? Patient voiced understanding and signed MENDEZ form.? Patient provided a copy of signed MENDEZ form and original placed in patient's chart.? Patient had no further questions. Yvette Ang, Discharge Planning Asst
== END 2025-06-14 17:43 | disposition home or self-care (01) ==
LOC: SDC 12:10 → MS3 12:10
PROVIDERS: Admitting Provider Urology; PCP Family Medicine; Referring Provider Urology; Visit Provider Urology
PROC: (CPT 52601; principal; 2025-06-13 09:30)
DX: N40.1 Benign prostatic hyperplasia with lower urinary tract symptoms (principal); E11.9 Type 2 diabetes mellitus without complications; N13.8 Other obstructive and reflux uropathy; R39.14 Feeling of incomplete bladder emptying; R35.0 Frequency of micturition; R39.15 Urgency of urination; N32.81 Overactive bladder; Z79.82 Long term (current) use of aspirin; Z79.899 Other long term (current) drug therapy; I10 Essential (primary) hypertension
CPT/HCPCS: 52601; 00914; 51702; 82962; 88305; 96361; 96365; 96366; 96375; 96376; 99221; A4216; G0378; J2405